=== PATIENT | female | born 1955 | race Caucasian/White ===

== ENCOUNTER → 2017-10-01 16:52 | Outpatient (REF) | payer BC, SELFPAY ==
[2017-10-01 19:30] LABS: Amphetamine/Metha Screen,Urine Negative ng/mL (<1000); Barbiturates Screen,Urine Negative ng/mL (<200); Benzodiazepines Screen,Urine Positive ng/mL (<200); Cannabinoid Screen,Urine Negative ng/mL (<50); Cocaine Screen,Urine Negative ng/mL (<300); Methadone Screen,Urine Negative ng/mL (<300); Opiate Screen,Urine Negative ng/mL (<300); Phencyclidine Screen,Urine Negative ng/mL (<25)
== END ==
LOC: LAB 16:52
PROVIDERS: Visit Provider Physician Assistant
DX: Z79.899 Other long term (current) drug therapy (principal)
CPT/HCPCS: 80305

== ENCOUNTER 2019-06-21 15:01 | Emergency (ER) | payer BC, SELFPAY ==
[2019-06-21 15:04] VITALS: BP 125/86; PULSE 105; RESP 20; TEMP 36.9; O2SAT 95; BMI 19.8
--- NOTE | 2019-06-21 15:10 | XR_ITS ---
PROCEDURE: XR CHEST PORTABLE CLINICAL HISTORY: cough/respiratory symptoms COMPARISON: CXR CHEST(2 VIEWS-NOT PORTABLE) from 11/23/2012 XR CHEST 2V from 05/04/2019 FINDINGS: The cardiomediastinal silhouette and pulmonary vascularity are within normal limits. There is increased density of the left hemithorax compared to the right somewhat more prominent in the left upper lobe with elevated left hemidiaphragm and mild prominence of the left hilum. Left upper lobe collapse or loculated effusion is a consideration as well as possible pneumonia. Consider chest CT with contrast for further evaluation. No acute bony abnormalities. IMPRESSION: Abnormal portable chest as described above which could be related to volume loss of the left upper lobe, underlying pleural thickening or effusion, or left upper lobe pneumonia. Consider chest CT with contrast for further evaluation Dictated by: Sameer Hsu MD 06/21/2019 16:00 Electronically signed by Sameer Hsu MD in [place] 06/21/2019 16:00
[2019-06-21 15:22] LABS: Hematocrit 42.8 % (37.0-47.0); Hemoglobin 13.8 g/dL (12.2-16.2); Mean Corpuscular Volume 92.6 fl (81-99); Red Blood Count 4.62 M/mm3 (4.20-5.40); White Blood Count 11.1 K/mm3 (4.8-10.8)
[2019-06-21 15:23] LABS: Basophils # 0.1 K/mm3 (0-0.2); Basophils % 0.6 % (0.1-2.0); Eosinophils # 0.2 K/mm3 (0.0-0.4); Lymphocytes # 2.1 K/mm3 (0.7-4.5); Lymphocytes % 19.3 % (10-50); Mean Corpuscular HGB Conc 32.4 g/dL (31.8-35.4); Mean Platelet Volume 8.5 fl (7.4-10.4); Monocytes # 0.7 K/mm3 (0.1-1.0); Monocytes % 6.2 % (1.7-9.3); Neutrophils % 71.9 % (37.0-80.0); Platelet Count 296 K/mm3 (142-424); Red Cell Distribution Width 13.9 % (11.5-17.5)
[2019-06-21 15:27] LABS: Strep Scrn Group A (Rapid) Negative (Negative)
--- NOTE | 2019-06-21 15:33 | HMH.COUGH ---
Cough Clinic HPI - History of Present Illness Complaint:: cough for 3 months HPI:: 63 year old female 3 months of illness that has primarily involved cough with very little sputum production. She has some nasal congestion, and periodic dyspnea. She endorses low grade fever between 99-100 degrees during this time. She was seen in the [facility] in early April for these same symptoms. Workup was unremarkable Home Medications: Home Medications Medication Instructions Recorded Confirmed Type Valium 5 mg tablet 5 mg PO TID PRN #90 tab NS 01/25/19 06/21/19 Rx Benzonatate [Tessalon Perle 100mg 100 mg PO TIDP PRN #30 cap 05/04/19 06/21/19 Rx Cap] Cefdinir [Omnicef 300mg Capsule] 300 mg PO BID 06/21/19 06/21/19 History Fluconazole 150 mg PO DIRECTED #3 tab 06/21/19 Rx Fluconazole [Diflucan 150mg tab] 150 mg PO ONCE 06/21/19 06/21/19 History levoFLOXacin [Levofloxacin 750MG 750 mg PO DAILY #7 tab 06/21/19 Rx Tablet] Allergies/Adverse Reactions: Allergies Allergy/AdvReac Type Severity Reaction Status Date / Time No Known Allergies Allergy Unknown Uncoded 01/25/19 13:21 Cough Clinic Triage - Symptoms Fever History: Yes Chills: Yes Myalgia: Yes Nasal Drainage: Yes Sore Throat: Yes Productive Cough: No Non-productive Cough: Yes Ear or Sinus Pain: Yes Joint Pain: Yes Chest Pain: Yes Rash: No Shortness of Breath: Yes Nausea or Vomitting: Yes Headache: Yes Abdominal Pain: No Diarrhea: No - Exposure History Foreign Travel: No Direct Contact with COVID-19 Patient: No - Risk Factors Greater than 60 Years Old: No COPD: No Diabetes: No Heart Disease: Yes (2 stents) Home Oxygen Use: No Chronic Renal Disease: No Chronic Liver Disease: No Neurologic/Neurodevelopmental/intellectual disability: No Other Chronic Diseases: No If Female, currently : No Current Smoker: No Former Smoker: Yes Cough Clinic History I have reviewed the patient's past medical history: Yes Medical History: Reports:: Anxiety Other Surgeries: Yes: Hysterectomy-Partial Amputation: No Fractures: No Comment: Bladder tuck, bowel surgery, cardiac stent x3 - Social History Smoking Status: Current every day smoker Tobacco Type: cigarettes # Packs/Day (cigarettes): 1 Alcohol Intake: never Substance Use Type: denies use Occupational Status: other - Psychiatric History Pschychiatric History:: Reports:: Anxiety Family Hx:: Heart Attack, Coronary Artery Disease, Cancer ROS Obtained: Yes All systems reviewed & no additional complaints Cough Clinic Exam - General General appearance: alert, in no apparent distress - Head Head exam: atraumatic, normocephalic, normal inspection - Eye Eye exam: Present: normal appearance, PERRL, EOMI - ENT ENT exam: Present: normal exam, normal oropharynx, mucous membranes moist, TM's normal bilaterally, normal external ear exam - Neck Neck exam: Present: normal inspection, full ROM, trachea midline. Absent: meningismus, lymphadenopathy - Chest Chest inspection: Present: normal inspection, symmetric chest wall rise. Absent: tenderness - Respiratory Respiratory exam: Present: normal lung sounds bilaterally. Absent: respiratory distress - Cardiovascular Cardiovascular exam: Present: regular rate, normal rhythm. Absent: JVD - Extremities Exam Extremities exam: Present: normal inspection, full ROM, normal capillary refill. Absent: calf tenderness - Neurological Exam Neurological exam: Present: alert, oriented X3 - Skin Skin exam: Present: warm, dry, intact, normal color - Lymphatic Lymphatic Findings: no adenopathy Cough Clinic MDM Vital Signs: 06/21/19 15:04 Temperature 98.5 F Temperature Source Oral Pulse Rate [Left Radial] 105 H Respiratory Rate 20 Blood Pressure [Left Arm] 125/86 Blood Pressure Mean [Left Arm] 99 Blood Pressure Source [Left Arm] Automatic Cuff Blood Pressure Position [Left Arm] Sitting 02 Sat by Pulse Oximetry 95 Oxygen Delivery Method Roxi
[2019-06-21 16:12] VITALS: BP 125/86; PULSE 105; RESP 20; TEMP 36.9; O2SAT 95
== END 2019-06-21 16:13 | disposition home or self-care (01) ==
PROVIDERS: Emergency Provider Family Medicine; PCP Emergency Medicine
DX: J18.9 Pneumonia, unspecified organism (principal); F41.9 Anxiety disorder, unspecified; F17.210 Nicotine dependence, cigarettes, uncomplicated
CPT/HCPCS: 36415; 71045; 85025; 87430; 99201; 99213

== ENCOUNTER → 2019-07-11 12:49 | Outpatient (CLI) | payer BC, SELFPAY ==
--- NOTE | 2019-07-11 12:49 | CT_ITS ---
PROCEDURE: CT CHEST W CON CLINCAL INDICATION: Abnormal CXR Shortness of air, left-sided lung pain, abnormal chest x-ray COMPARISON: ABDPELW/O CT ABD PELVIS W/O CONTRAST from 06/02/2014 XR CHEST PORTABLE from 06/21/2019 TECHNIQUE: IV Contrast: 75ml Optiray 350 Axial images obtained with sagittal and coronal reformats. All CT scans at the facility use one or more dose reduction, viz: automated exposure control, ma/kV adjustment per patient size (including targeted exams where dose is matched to indication, i.e. head), or iterative reconstruction technique. FINDINGS: HEART AND MEDIASTINAL STRUCTURES: There is increased soft tissue density in the left aspect of the hilum suspicious for adenopathy or developing mass. This measures approximately 1.9 by 1.6 cm. On the coronal reformatted images there is some minimal nodular protrusion into the left mainstem bronchus on series 601, image 33 which measures 4 mm. The there is also some narrowing of the segmental artery to the lingula. The there is mild dilatation of the main pulmonary artery on both sides right larger than left measuring 2.8 cm in AP dimension. There is some calcification of the aortic root. LUNGS AND PLEURAL SPACES: There is changes of COPD with centrilobular emphysema. There are 2 nodular densities in the left upper lobe centrally series 3, image 35. These are adjacent to 1 another and measure 5 and 8 mm. There are small areas of cavitation within these nodules. An additional small nodules present in the left lower lobe anteriorly measuring 6 mm series 3, image 43. No effusions are evident. No lobar consolidation or collapse. BONY STRUCTURES: No bony destructive process UPPER ABDOMEN: Unremarkable. ADDITIONAL FINDINGS: No other significant abnormalities. IMPRESSION: 1. Abnormal soft tissue density in the left hilum suspicious for adenopathy or a mass with some protrusion of this lesion into the left mainstem bronchus. Carcinoma is considered. Pulmonary consult with bronchoscopy suggested for further evaluation. 2. At least 3 nodules on the left which could be inflammatory/infectious or due to metastatic disease. 3. COPD with centrilobular emphysema the Dictated by: Sameer Hsu MD 07/12/2019 08:52 Electronically signed by Sameer Hsu MD in [place] 07/12/2019 08:52
[2019-07-11 13:37] LABS: Anion Gap 11.1 mEq/L (5-15); Blood Urea Nitrogen 9 mg/dl (7-17); Calcium 10.3 mg/dl (8.4-10.2); Carbon Dioxide 32 mmol/L (22.0-30.0); Chloride 95 mmol/L (98-107); Estimated Glomerular Filt Rate 125 ml/min (>60); GFR (African American) 151 ML/MIN (>60); Glucose 103 mg/dl (74-100); Potassium 4.1 mmoL/L (3.5-5.1); Sodium 134 mmol/L (136-145)
== END ==
PROVIDERS: PCP Physician Assistant; Visit Provider Physician Assistant
DX: Z01.818 Encounter for other preprocedural examination (principal); R93.89 Abnormal findings on diagnostic imaging of other specified body structures
CPT/HCPCS: 36415; 71260; 80048; Q9967

== ENCOUNTER → 2020-05-28 15:15 | Outpatient (CLI) | payer BC, SELFPAY ==
[2020-05-28 15:42] LABS: Basophils # 0.1 K/mm3 (0-0.2); Basophils % 0.7 % (0.1-2.0); Eosinophils # 0.2 K/mm3 (0.0-0.4); Eosinophils % 1.7 % (0.1-12.0); Hematocrit 44.6 % (37.0-47.0); Hemoglobin 14.4 g/dL (12.2-16.2); Lymphocytes % 10.5 % (10-50); Mean Corpuscular HGB Conc 32.4 g/dL (31.8-35.4); Mean Corpuscular Hemoglobin 29.3 pg (27.0-31.2); Mean Corpuscular Volume 90.6 fl (81-99); Mean Platelet Volume 9.3 fl (7.4-10.4); Monocytes # 0.4 K/mm3 (0.1-1.0); Monocytes % 3.9 % (1.7-9.3); Neutrophils # 8.3 K/mm3 (1.8-7.8); Neutrophils % 83.3 % (37.0-80.0); Platelet Count 348 K/mm3 (142-424); Red Blood Count 4.92 M/mm3 (4.20-5.40); Red Cell Distribution Width 13.6 % (11.5-17.5)
[2020-05-28 16:01] LABS: Alanine Aminotransferase 11 U/L (12-78); Albumin Level 4.7 g/dl (3.5-5.0); Albumin/Globulin Ratio 1.6 (1.1-1.8); Alkaline Phosphatase 97 U/L (38-126); Anion Gap 11.4 mEq/L (5-15); Aspartate Amino Transferase 23 U/L (14-36); Bilirubin,Total 0.4 mg/dl (0.2-1.3); Blood Urea Nitrogen 7 mg/dl (7-17); Calcium 9.8 mg/dl (8.4-10.2); Carbon Dioxide 28 mmol/L (22.0-30.0); Chloride 100 mmol/L (98-107); Cholesterol 260 mg/dl (140-200); Estimated Glomerular Filt Rate 125 ml/min (>60); GFR (African American) 151 ML/MIN (>60); Glucose 108 mg/dl (74-100); HDL Cholesterol 52 mg/dl (40-60); Potassium 4.4 mmoL/L (3.5-5.1); Sodium 135 mmol/L (136-145); Total Protein,Serum 7.7 g/dl (6.3-8.2); Triglycerides 172 mg/dl (30-150); VLDL Cholesterol 34 mg/dL (0-40)
[2020-05-28 16:12] LABS: Direct LDL Cholesterol 166.49 mg/dL (100-129)
[2020-05-28 16:18] LABS: Free T4 (Free Thyroxine) 1.29 ng/dl (0.78-2.19)
[2020-05-28 16:50] LABS: Vitamin B12 283 pg/mL (239-931)
[2020-05-28 18:00] LABS: 25-OH Vitamin D, Total 62.5 ng/mL (30-100)
== END ==
PROVIDERS: Visit Provider Physician Assistant
DX: Z00.00 Encounter for general adult medical examination without abnormal findings (principal)
CPT/HCPCS: 80053; 80061; 82306; 82607; 84439; 84443; 85025

== ENCOUNTER → 2021-03-20 15:18 | Outpatient (CLI) | payer BC, SELFPAY ==
[2021-03-20 15:21] LABS: Adenovirus,PCR Not Detected (NotDetected); Bordetella Pertussis Not Detected (NotDetected); Chlamydophila Pneumoniae, PCR Not Detected (NotDetected); Coronavirus 19, PCR Not Detected (NotDetected); Coronavirus 229E Not Detected (NotDetected); Coronavirus NL63 Not Detected (NotDetected); Coronavirus OC43 Not Detected (NotDetected); Coronovirus HKU1,PCR Not Detected (NotDetected); Human Metapneumovirus Not Detected (NotDetected); Influenza A, PCR Not Detected (NotDetected); Influenza AH1, 2009 Not Detected (NotDetected); Influenza AH1, PCR Not Detected (NotDetected); Influenza AH3,PCR Not Detected (NotDetected); Influenza B, PCR Not Detected (NotDetected); Mycoplasma Pneumoniae, PCR Not Detected (NotDetected); Parainfluenza 1, PCR Not Detected (NotDetected); Parainfluenza 2, PCR Not Detected (NotDetected); Parainfluenza 3, PCR Not Detected (NotDetected); Parainfluenza 4, PCR Not Detected (NotDetected); Respiratory Syncytial Virus Not Detected (NotDetected); Rhinovirus/Enterovirus Not Detected (NotDetected)
== END ==
PROVIDERS: Visit Provider Physician Assistant
DX: Z20.822 Contact with and (suspected) exposure to COVID-19 (principal); R05.9 Cough, unspecified
CPT/HCPCS: 87581; 87632; 87798; C9803; U0003; U0005

== ENCOUNTER 2021-04-01 12:40 | Emergency (ER) | payer BC, SELFPAY ==
[2021-04-01 12:55] VITALS: BP 144/90; PULSE 101; RESP 18; TEMP 37; O2SAT 90; BMI 24.6
--- NOTE | 2021-04-01 13:31 | HMH.EDUTC ---
[facility] [place] Clinical Impression: Otitis media Qualifiers: Otitis media type: unspecified Laterality: bilateral Qualified Code(s): H66.93 - Otitis media, unspecified, bilateral Disposition: Home, Self-Care Condition on Discharge: Good Instructions: Middle Ear Infection, Azithromycin Additional Instructions: ? Start antibiotic today. Be sure to complete entire prescription even if feeling better ? Monitor temp. Tylenol every 4 hours as needed and / or ibuprofen every 6 hours as needed ( As long as your primary care physician has told you that it ok to take both. For fever/aches/pains ER if no less than 101 despite Tylenol or Motrin ? Humidifier/vaporizer or hot steamy shower ? Inhaler every 4-6 hours as needed like we discussed. If unsure how to use it, ask pharmacist to demonstrate how. Should help open airways and improve cough, wheezing, and shortness of breath ? Mucinex during the day for your cough and cough suppressant only at night. Be sure to drink lots of water.Might be cheaper to get 400mg tablets and take 2 tablet in the morning, mid-day and evening with lots of water. *Start steroid today. Helps with inflammation therefore, cough and wheezing. Follow directions on the package. Reviewed side effects. Patient reports taking them before. Follow up IMMEDIATELY for new or worsening of symptoms OR no noticeable improvement over the next 48-72 hours. 911 immediately for any life threatening symptoms such as chest pain or difficulty breathing Prescriptions: guaiFENesin [Mucinex 600mg tablet] 1 - 2 tab PO Q12HP PRN #20 tab PRN Reason: Congestion Transmission Status: Received by [id number] Fluticasone Propionate [Flonase 50mcg nasal spray 16gm] 1 spr NS DAILY #1 each Transmission Status: Received by [id number] methylPREDNISolone [Medrol 4mg tab] 4 mg PO DIRECTED #21 tab Transmission Status: Received by [id number] Azithromycin [Z-Lawrence 250mg Tab] 250 mg PO DIRECTED #6 tab Transmission Status: Received by [id number] Referrals: Socorro Cox PA [Primary Care Provider] - As needed Time of Disposition: 13:48 Medical Decision Making - Shin Inquiry Pt receiving controlled substance: No Shin was queried for this patient: No Vital Signs: 04/01/21 12:55 04/01/21 13:51 Temperature 98.6 F 98.6 F Temperature Source Oral Pulse Rate 101 H Pulse Rate [Right Brachial] 101 H Respiratory Rate 18 18 Blood Pressure 144/90 H Blood Pressure [Right Arm] 144/90 H Blood Pressure Mean [Right Arm] 108 Blood Pressure Source [Right Arm] Automatic Cuff Blood Pressure Position [Right Arm] Sitting 02 Sat by Pulse Oximetry 90 L Oxygen Delivery Method Room Air Medical Decision Narrative: SPO2 rechecked and was 95 [facility] [place] - General Stated complaint: bilateral ear ache, cough, h/a Time Seen by Provider: 04/01/21 13:31 Mode of Arrival: Ambulatory Source of Information: Patient Limitations: No Limitations Description of Symptoms (Recalled from Triage Doc. by RN): PATIENT C/O CONGESTION, COUGH, EAR PAIN. REPORTS SHE WAS TREATED FOR BRONCHITIS A WEEK AGO, BUT IS NOW HAVING THE EAR PAIN HEENT Symptoms (Recalled from RN notes): Yes Resp Symptoms (Recalled from RN notes): Yes Skin Symptoms (Recalled from RN notes): No MS Symptoms (Recalled from RN notes): No Functional Status (Recalled from RN notes): WNL - History of Present Illness Provider Complaint: Patient state that she was seen and treated about a week ago for Bronchitis but states that she finished the medication and it did help with the bronchitis but now she has started having pain in her ears and still having the cough but doesnt want that treated - Related Data Previous Rx's Medication Instructions Recorded Valium 5 mg tablet 5 mg PO TID PRN #90 tab NS 03/20/21 Azithromycin [Z-Lawrence 250mg Tab] 250 mg PO DIRECTED #6 tab 04/01/21 Fluticasone Propionate [Flonase 1 spr NS DAILY #1 each 04/01/21 5
[2021-04-01 13:51] VITALS: BP 144/90; PULSE 101; RESP 18; TEMP 37; O2SAT 95
== END 2021-04-01 13:55 | disposition home or self-care (01) ==
PROVIDERS: Emergency Provider Nurse Practitioner; PCP Physician Assistant
DX: H66.93 Otitis media, unspecified, bilateral (principal); F17.210 Nicotine dependence, cigarettes, uncomplicated
CPT/HCPCS: 99202; G0463

== ENCOUNTER → 2021-08-23 06:36 | Outpatient (CLI) | payer BC, SELFPAY ==
[2021-08-22 17:47] LABS: Basophils # 0.1 K/mm3 (0-0.2); Basophils % 1.4 % (0.1-2.0); Eosinophils # 0.1 K/mm3 (0.0-0.4); Eosinophils % 1.1 % (0.1-12.0); Hematocrit 49.9 % (37.0-47.0); Hemoglobin 15.6 g/dL (12.2-16.2); Lymphocytes # 1.1 K/mm3 (0.7-4.5); Lymphocytes % 15.4 % (10-50); Mean Corpuscular HGB Conc 31.2 g/dL (31.8-35.4); Mean Corpuscular Volume 96.1 fl (81-99); Mean Platelet Volume 9.7 fl (7.4-10.4); Monocytes # 0.4 K/mm3 (0.1-1.0); Monocytes % 5.7 % (1.7-9.3); Neutrophils # 5.3 K/mm3 (1.8-7.8); Neutrophils % 76.5 % (37.0-80.0); Platelet Count 354 K/mm3 (142-424); Red Blood Count 5.19 M/mm3 (4.20-5.40)
[2021-08-22 17:49] LABS: Alanine Aminotransferase 13 U/L (12-78); Albumin Level 4.3 g/dl (3.5-5.0); Albumin/Globulin Ratio 1.3 (1.1-1.8); Alkaline Phosphatase 83 U/L (38-126); Anion Gap 10.9 mEq/L (5-15); Aspartate Amino Transferase 24 U/L (14-36); Bilirubin,Total 0.2 mg/dl (0.2-1.3); Blood Urea Nitrogen 14 mg/dl (7-17); Carbon Dioxide 32 mmol/L (22.0-30.0); Chloride 99 mmol/L (98-107); Chol/HDL Ratio 4.6 (1-3.5); Cholesterol 236 mg/dl (140-200); Estimated Glomerular Filt Rate 124 ml/min (>60); GFR (African American) 150 ML/MIN (>60); Globulin 3.3 g/dL (1.3-3.2); Glucose 101 mg/dl (74-100); HDL Cholesterol 51 mg/dl (40-60); Potassium 4.9 mmoL/L (3.5-5.1); Sodium 137 mmol/L (136-145); Total Protein,Serum 7.6 g/dl (6.3-8.2); Triglycerides 107 mg/dl (30-150); VLDL Cholesterol 21 mg/dL (0-40)
[2021-08-22 18:00] LABS: Direct LDL Cholesterol 145.21 mg/dL (100-129)
[2021-08-22 18:06] LABS: 25-OH Vitamin D, Total 42.7 ng/mL (30-100)
[2021-08-22 18:20] LABS: Thyroid Stimulating Hormone 1.48 uIU/mL (0.465-4.68)
[2021-08-22 18:39] LABS: Vitamin B12 248 pg/mL (239-931)
== END ==
PROVIDERS: PCP Physician Assistant; Visit Provider Physician Assistant
DX: Z00.00 Encounter for general adult medical examination without abnormal findings (principal); Z79.899 Other long term (current) drug therapy
CPT/HCPCS: 80053; 80061; 82306; 82607; 84443; 85025

== ENCOUNTER 2021-11-11 13:01 | Emergency (ER) | payer BC, SELFPAY ==
[2021-11-11 13:50] VITALS: BP 146/85; PULSE 91; RESP 17; TEMP 37; O2SAT 97; BMI 18.5
[2021-11-11 14:21] LABS: UTC Strep Screen (Rapid) Negative (Negative)
--- NOTE | 2021-11-11 14:29 | EXP.UTC ---
Discharge Plan Disposition Patient Disposition: Home, Self-Care Condition: Good Prescriptions Prescriptions: New amoxicillin 500 mg capsule 500 mg PO Q8 7 Days Qty: 21 0RF prednisone 10 mg tablet 10 mg PO Q12H 5 Days Qty: 10 0RF benzonatate 100 mg capsule 100 mg PO TID PRN (Reason: cough) Qty: 20 0RF No Action diazepam [Valium] 5 mg tablet 5 mg PO TID PRN (Reason: anxiety) Qty: 90 2RF fluticasone propionate 120 SPR/BOT bottle 1 spr NS DAILY Qty: 1 0RF Rx Instructions: one spray in each nostril daily Referrals Follow up/Referrals: Leonel Ford MD [Primary Care Provider] - See instructions Activity Restrictions/Add. Instructions Additional Instructions/Restrictions: *Monitor Temp, Over the counter Motrin or Tylenol as directed/as needed Tylenol every 4 hours and Motrin every 6 hours (as long as your family doctor has told you that you can take it) for fever or pain. and straight to ER if unable to lower temp less than 101.0 after medication given *Warm salt water gargles may help to soothe the throat *Throat Lozenges? *Warm fluids like tea with honey may help to soothe the throat? *Sleep elevated *Humidifier/Vaporizer *Your throat swab was sent for culture. Those results are typically sent to your primary care. Be sure to follow up in 2-3 days with your family doctor/primary care physician if no improvement so they can review those result and treat if necessary. If you don?t have a primary care doctor, I recommend you get one but in the mean time, you will have to return to a walk in clinic Follow up IMMEDIATELY for new or worsening symptoms or no Noticeable improvement over the next 48-72 hours. 911 for difficulty breathing or swallowing Start oral steriods tomorrow 11/12/21 Clinical Impressions Clinical Impression: URI (upper respiratory infection) Instructions Patient Instructions: DI for Sinusitis [place]charge ED [place]sten Hdz [facility] [place] General Stated complaint: WERNER, Sore throat Mode of Arrival: Ambulatory Source of Information: Patient Limitations: No Limitations Time Seen by Provider: 09/12/22 14:29 Description of Symptoms (Recalled from Triage Doc. by RN): PATIENT C/O HEADACHE, SORE THROAT, AND COUGH X 2 DAYS HEENT Symptoms (Recalled from RN notes): Yes Resp Symptoms (Recalled from RN notes): Yes Skin Symptoms (Recalled from RN notes): No MS Symptoms (Recalled from RN notes): No Functional Status (Recalled from RN notes): WNL History of Present Illness Provider Complaint: Patient states that she has been having sinus pain and pressure, cough, sore throat, and headache States that she feels like she may have a sinus infection that is trying to move into her chest area States that she tried to come in and get it checked before it got bad Related Data Previous Rx's Medication Instructions Recorded fluticasone propionate 50 1 spr intranasal DAILY #1 ea 04/01/21 mcg/actuation nasal spray,suspension Valium 5 mg tablet (diazepam) 5 mg PO TID PRN anxiety #90 tabs 08/23/21 amoxicillin 500 mg capsule 500 mg PO Q8 7 days #21 caps 11/11/21 benzonatate 100 mg capsule 100 mg PO TID PRN cough #20 caps 11/11/21 prednisone 10 mg tablet 10 mg PO Q12H 5 days #10 tabs 11/11/21 Allergies Allergy/AdvReac Type Severity Reaction Status Date / Time No Known Allergies Allergy Verified 08/22/21 13:07 Worker's Comp Is this a Worker's Comp case?: No PFSH PFSH Medical History (Updated 11/11/21 @ 14:42 by Kiersten Hdz APRN) Anxiety Cancer Heart attack Migraine Tooth abscess Surgical History (Updated 11/11/21 @ 14:18 by Afshan Cuellar RN) History of hysterectomy Social History (Updated 11/11/21 @ 14:18 by Afshan Cuellar RN) Smoking Status: Current every day smoker tobacco type: cigarettes packs per day: 1 alcohol intake: never substance use type: denies use current occupational status: other Travel in the
[2021-11-11 14:50] VITALS: BP 146/85; PULSE 91; RESP 17; TEMP 37; O2SAT 97
== END 2021-11-11 14:58 | disposition home or self-care (01) ==
PROVIDERS: Emergency Provider Nurse Practitioner; PCP Emergency Medicine
DX: J02.9 Acute pharyngitis, unspecified (principal); R51.9 Headache, unspecified; R05.9 Cough, unspecified; F17.210 Nicotine dependence, cigarettes, uncomplicated
CPT/HCPCS: 87880; 96372; 99212; G0463; J0696

== ENCOUNTER 2022-01-24 00:25 | Emergency (ER) | payer BC, SELFPAY ==
[2022-01-24 00:25] VITALS: BP 195/103; PULSE 95; RESP 16; TEMP 36.7; O2SAT 99; BMI 18.6
--- NOTE | 2022-01-24 00:30 | ECG_ITS ---
APPROVED REPORT Exam: Resting ECG HR:95 bpm ECG Measurements Heart Rate 95 AXES ND 174 P 70 QRSd 98 QRS -32 QT 353 T 87 QTc 406 Conclusion SINUS RHYTHM WITH FREQUENT VENTRICULAR PREMATURE COMPLEXES LEFT AXIS DEVIATION [QRS AXIS < -30] NONSPECIFIC ST & T-WAVE ABNORMALITY ABNORMAL ECG UNCONFIRMED REPORT Electronically signed by : Mk Reagan MD 01/24/2022 16:24:13
--- NOTE | 2022-01-24 00:47 | XR_ITS ---
PROCEDURE INFORMATION: Exam: XR Chest Exam date and time: 01/24/2022 12:46 AM Age: 66 years old Clinical indication: Pain; Chest pressure; Additional info: Chest pressure/pre-syncope TECHNIQUE: Imaging protocol: Radiologic exam of the chest. Views: 2 views. COMPARISON: CT CHEST W CON 07/11/2019 2:00 PM FINDINGS: Lungs: There is left hilar prominence. Linear parenchymal opacities extend into the anterior left upper lobe from the area of left hilar prominence. Pleural spaces: Unremarkable. No pleural effusion. No pneumothorax. Heart/Mediastinum: Unremarkable. No cardiomegaly. Vasculature: Unremarkable. Bones/joints: Unremarkable. IMPRESSION: Left hilar prominence with interstitial linear densities extending into the left upper lobe from the area of hilar prominence. Prior CT demonstrated left hilar mass/adenopathy. The present finding is likely related to the CT abnormality and correlation with the patient's history is recommended with regard to malignancy. No acute consolidation is appreciated.
[2022-01-24 00:58] LABS: Chloride 98 mmol/L (98-107)
[2022-01-24 00:59] LABS: Potassium 3.6 mmoL/L (3.5-5.1); Sodium 136 mmol/L (136-145)
[2022-01-24 01:01] LABS: Alanine Aminotransferase 15 U/L (12-78); Albumin Level 4.5 g/dl (3.5-5.0); Albumin/Globulin Ratio 1.4 (1.1-1.8); Alkaline Phosphatase 94 U/L (38-126); Anion Gap 11.6 mEq/L (5-15); Aspartate Amino Transferase 25 U/L (14-36); Bilirubin,Total 0.3 mg/dl (0.2-1.3); Blood Urea Nitrogen 9 mg/dl (7-17); Carbon Dioxide 30 mmol/L (22.0-30.0); Creatinine Clearance Estimated 41 mL/min (50-200); Estimated Glomerular Filt Rate 124 ml/min (>60); GFR (African American) 150 ML/MIN (>60); Globulin 3.3 g/dL (1.3-3.2); Glucose 112 mg/dl (74-100); Total Protein,Serum 7.8 g/dl (6.3-8.2)
[2022-01-24 01:02] LABS: Magnesium 1.7 mg/dl (1.6-2.3)
--- NOTE | 2022-01-24 01:02 | HMH.EDARPALP ---
Discharge Plan Disposition Patient Disposition: Home, Self-Care Chief Complaint: Arrhythmia/Palpitations Prescriptions Prescriptions: No Action diazepam [Valium] 5 mg tablet 5 mg PO TID PRN (Reason: anxiety) Qty: 90 2RF fluticasone propionate 120 SPR/BOT bottle 1 spr NS DAILY Qty: 1 0RF Rx Instructions: one spray in each nostril daily Referrals Follow up/Referrals: Leonel Ford MD [Primary Care Provider] - See instructions Jorge Harris MD [Staff Physician] - See instructions Clinical Impressions Clinical Impression: Cardiac arrhythmia, Subclavian arterial stenosis Instructions Patient Instructions: Cardiac Arrhythmia (Alternative Therapy) Discharge ED Provider: Leonel Ford Arrhythmia/Palpitations HPI General Chief Complaint: Arrhythmia/Palpitations Stated Complaint: heart beat fluctuating Time Seen by Provider: 01/24/22 01:02 Mode of Arrival: Family Vehicle Source of Information: Patient and Medical Record Limitations: No Limitations History of Present Illness HPI narrative: over the last few weeks episodes of low hr with nausea and a couple of times has diaphoresis but no syncope and mostly in am - no chest pain - had stents in past but has not seen card in recent past - tob use but no diabetes Onset (ago): week(s) Duration: intermittent Severity: moderate Context: other (has low hr ) Associated symptoms: nausea and diaphoresis Related Data Previous Rx's Medication Instructions Recorded fluticasone propionate 50 1 spr intranasal DAILY #1 ea 04/01/21 mcg/actuation nasal spray,suspension Valium 5 mg tablet (diazepam) 5 mg PO TID PRN anxiety #90 tabs 08/23/21 Allergies Allergy/AdvReac Type Severity Reaction Status Date / Time No Known Allergies Allergy Verified 08/22/21 13:07 [facility] Medical History (Updated 01/24/22 @ 04:04 by Leonel Ford MD) Anxiety Cancer Heart attack Migraine Tooth abscess Surgical History (Updated 11/11/21 @ 14:18 by Afshan Cuellar RN) History of hysterectomy Social History (Updated 11/11/21 @ 14:18 by Afshan Cuellar RN) Smoking Status: Current every day smoker tobacco type: cigarettes packs per day: 1 alcohol intake: never substance use type: denies use current occupational status: other Travel in the last 8 weeks: None ROS Obtained: Yes All systems reviewed & no additional complaints except as documented Physical Exam General General appearance: alert Head Head exam: normocephalic Eye Eye exam: Present PERRL and EOMI ENT ENT exam: Present mucous membranes moist Neck Neck exam: Present trachea midline Respiratory Respiratory exam: Present other (positive rhonchi); Absent respiratory distress Cardiovascular Cardiovascular exam: Present regular rate, systolic murmur and +S4 Abdominal Exam Abdominal exam: Present soft Extremities Exam Extremities exam: Absent tenderness Neurological Exam Neurological exam: Present alert, oriented X3 and CN II-XII intact Psychiatric Psychiatric exam: Present normal affect Skin Skin exam: Absent rash Medical Decision Making Medical Records Medical records reviewed: Yes I reviewed the patient's medical records. Shin Inquiry Pt receiving controlled substance: No Vital Signs: 01/24/22 00:25 01/24/22 01:46 Temperature 98.1 F Temperature Source Oral Pulse Rate [Orthostatic Lying] 81 Pulse Rate [Orthostatic Sitting] 81 Pulse Rate [Orthostatic Standing] 86 Pulse Rate [Right] 95 H Respiratory Rate 16 Blood Pressure [Orthostatic Lying] 114/64 Blood Pressure [Orthostatic Sitting] 108/68 L Blood Pressure [Orthostatic Standing] 117/75 Blood Pressure [Right Arm] 195/103 H Blood Pressure Mean [Right Arm] 133 Blood Pressure Source [Right Arm] Automatic Cuff 02 Sat by Pulse Oximetry 99 Oxygen Delivery Method Room Air Lab Data Lab results reviewed: Yes I reviewed the patient's lab results. Lab Results 01/24/22 00:40: WBC
[2022-01-24 01:12] LABS: Basophils # 0.1 K/mm3 (0-0.2); Eosinophils # 0.2 K/mm3 (0.0-0.4); Eosinophils % 1.9 % (0.1-12.0); Hematocrit 45.3 % (37.0-47.0); Hemoglobin 14.7 g/dL (12.2-16.2); Lymphocytes # 1.5 K/mm3 (0.7-4.5); Lymphocytes % 17.6 % (10-50); Mean Corpuscular HGB Conc 32.4 g/dL (31.8-35.4); Mean Corpuscular Hemoglobin 29.7 pg (27.0-31.2); Mean Corpuscular Volume 91.7 fl (81-99); Mean Platelet Volume 8.5 fl (7.4-10.4); Monocytes # 0.5 K/mm3 (0.1-1.0); Monocytes % 5.9 % (1.7-9.3); Neutrophils # 6.1 K/mm3 (1.8-7.8); Neutrophils % 73.6 % (37.0-80.0); Platelet Count 353 K/mm3 (142-424); Red Blood Count 4.94 M/mm3 (4.20-5.40); Red Cell Distribution Width 13.6 % (11.5-17.5); White Blood Count 8.2 K/mm3 (4.8-10.8)
[2022-01-24 01:22] LABS: Troponin I < 0.01 ng/ml (0.00-0.034)
--- NOTE | 2022-01-24 01:28 | PC.NURSE ---
Dr. Ford s/w pt & family
[2022-01-24 01:46] VITALS: BP 108/68; BP 114/64; BP 117/75; PULSE 81; PULSE 86
--- NOTE | 2022-01-24 02:05 | CT_ITS ---
PROCEDURE INFORMATION: Exam: CTA Chest With Contrast Exam date and time: 01/24/2022 2:16 AM Age: 66 years old Clinical indication: Pain; Chest pressure; Additional info: Chest pressure, HX of lung cancer TECHNIQUE: Imaging protocol: Computed tomographic angiography of the chest with contrast. 3D rendering (Not supervised by radiologist): MIP and/or 3D reconstructed images were created by the technologist. Radiation optimization: All CT scans at this facility use at least one of these dose optimization techniques: automated exposure control; mA and/or kV adjustment per patient size (includes targeted exams where dose is matched to clinical indication); or iterative reconstruction. Contrast material: ISOVUE; Contrast volume: 70 ml; Contrast route: INTRAVENOUS (IV); COMPARISON: CT CHEST W CON 07/11/2019 2:00 PM FINDINGS: Pulmonary arteries: Normal. No pulmonary emboli. Great vessels off aortic arch: There is significant calcific disease of the origin of the left subclavian artery with significant stenosis noted. Aorta: Unremarkable. No aortic aneurysm. No aortic dissection. Lungs: There are moderate emphysematous changes predominantly involving the upper lobes. There are passive atelectatic changes involving the dependent portions of both lungs. There is soft tissue prominence surrounding the bifurcation of the left mainstem bronchus and the proximal upper lobe segmental bronchi as well as the adjacent pulmonary vessels. This finding accounts for the hilar prominence noted on the chest radiograph. Prior CT from July 11, 2019 demonstrated a nearly 2 cm discrete soft tissue nodule in this region. There are fibrotic changes of the left upper lobe involving its medial aspect. There is pleural-based, nodular soft tissue involving the mid to medial aspect of the superior segment left lower lobe. Pleural spaces: Unremarkable. No pneumothorax. No pleural effusion. Heart: The heart is enlarged. Lymph nodes: Unremarkable. No enlarged lymph nodes. Bones/joints: Unremarkable. No acute fracture. Soft tissues: Unremarkable. IMPRESSION: 1. There is no pulmonary embolus or acute aortic finding. Significant stenosis at the origin of the left subclavian artery. 2. Findings within the left hilum and left upper lobe consistent with scarring secondary to treatment for known lung cancer. These findings account for the appearance on the chest radiograph. 3. There is pleural-based area of nodular density along the mid to medial aspect of the superior segment left lower lobe. This may be related to the lung cancer treatment however, an acute inflammatory process can not be excluded. 4. Moderate emphysematous changes predominantly involving the upper lobes.
[2022-01-24 03:23] LABS: T4 (Thyroxine) 8.1 ug/dl (5.53-11.0)
[2022-01-24 03:59] VITALS: BP 135/98; O2SAT 96
[2022-01-24 04:06] LABS: Troponin I < 0.01 ng/ml (0.00-0.034)
[2022-01-24 04:14] VITALS: BP 136/77; PULSE 85; RESP 15; TEMP 36.7; O2SAT 95
== END 2022-01-24 04:18 | disposition home or self-care (01) ==
PROVIDERS: Emergency Provider Emergency Medicine; PCP Emergency Medicine
DX: I77.1 Stricture of artery (principal); I49.9 Cardiac arrhythmia, unspecified; Z72.0 Tobacco use; Z79.899 Other long term (current) drug therapy; F41.9 Anxiety disorder, unspecified; G43.909 Migraine, unspecified, not intractable, without status migrainosus; Z86.73 Personal history of transient ischemic attack (TIA), and cerebral infarction without residual deficits; Z85.9 Personal history of malignant neoplasm, unspecified
CPT/HCPCS: 71046; 71275; 80053; 83735; 84436; 84443; 84484; 85025; 93005; 93225; 93226; 96365; 99285; Q9967

== ENCOUNTER → 2022-02-03 12:50 | Outpatient (CLI) | payer BC, SELFPAY ==
--- NOTE | 2022-02-03 12:52 | CA_ITS ---
FINAL REPORT TECHNIQUE: Color Doppler, duplex Doppler and quintero scale sonography of the bilateral neck arterial vasculature was performed. Velocities were measured in the carotid arteries. Stenosis evaluation based on the validated velocity criteria. CLINICAL HISTORY: LT SUBCLAVIAN STENOSIS SEEN ON CTA CHEST,SMOKER,PRIOR RT ICA STENT,NORIS FINDINGS: The peak systolic velocity of the right common carotid artery is 62 cm/s. There is a stent in the right internal carotid artery. The peak systolic velocity of the right internal carotid artery is 108 cm/s and end diastolic velocity 24 cm/s. The ICA/CCA ratio is 2.8. No significant plaque is present. The right external carotid artery is patent. The right vertebral artery is patent with antegrade flow. The peak systolic velocity of the left common carotid artery is 77 cm/s. The peak systolic velocity of the left internal carotid artery is 217 cm/s and end diastolic velocity 73 cm/s. The ICA/CCA ratio is 1.2. A moderate to large amount of plaque is present. The left external carotid artery is patent. Tardus parvus flow is seen of the left vertebral artery worrisome for significant stenosis. IMPRESSION: No significant right ICA stenosis. 50-69% stenosis of the left ICA. Tardus parvus flow of the left vertebral artery. Consider CTA or catheter directed angiogram. Reviewed, Interpreted and Dictated by Vinnie Wagner III, MD Transcribed by Ilda Becerril Authenticated and . [facility]
== END ==
PROVIDERS: PCP Physician Assistant; Visit Provider Nurse Practitioner
DX: I77.1 Stricture of artery (principal)
CPT/HCPCS: 93880

== ENCOUNTER 2022-07-10 11:17 | Outpatient (CLI) | payer BC, SELFPAY ==
[2022-07-10 11:20] VITALS: BP 127/74; PULSE 88; RESP 18; O2SAT 98
[2022-07-10 12:40] VITALS: BP 143/72; PULSE 87; RESP 18; O2SAT 99
== END 2022-07-10 12:40 | disposition home or self-care (01) ==
LOC: INF 11:17
PROVIDERS: PCP Nurse Practitioner Family; Visit Provider Nurse Practitioner Family
DX: E87.8 Other disorders of electrolyte and fluid balance, not elsewhere classified (principal)
CPT/HCPCS: 96360

== ENCOUNTER 2022-12-16 13:40 | Emergency (ER) | payer BC, SELFPAY ==
[2022-12-16 13:40] VITALS: BP 150/84; PULSE 99; RESP 18; TEMP 36.7; O2SAT 95; BMI 18.3
[2022-12-16 14:05] LABS: UTC Strep Screen (Rapid) Negative (Negative)
--- NOTE | 2022-12-16 14:11 | EXP.UTC ---
Discharge Plan Disposition Patient Disposition: Home, Self-Care Condition: Good Prescriptions Prescriptions: New methylprednisolone 4 mg Tablets,Dose Pack 4 mg PO DIRECTED Qty: 21 0RF cefdinir 300 mg capsule 300 mg PO BID Qty: 20 0RF No Action mupirocin 2 % ointment 1 applic topical TID PRN (Reason: skin soreness) Qty: 22 0RF lorazepam [Ativan] 1 mg tablet 1 mg PO TID PRN (Reason: anxiety) Qty: 90 0RF diazepam [Valium] 5 mg tablet 5 mg PO BID PRN (Reason: anxiety) Qty: 60 0RF Referrals Follow up/Referrals: Socorro Cox PA [Primary Care Provider] - See instructions Activity Restrictions/Add. Instructions Additional Instructions/Restrictions: Drink plenty of fluids. Take tylenol or ibuprofen for pain or fever. Take the medications as directed. Follow up with your regular doctor. GO TO THE ER FOR ANY WORSENING SYMPTOMS Clinical Impressions Clinical Impression: Pharyngitis Instructions Patient Instructions: Sore Throat, DI for Pharyngitis/Tonsillopharyngitis -- Adult Discharge ED Provider: Yariel Polo [facility] General Stated complaint: sore throat Time Seen by Provider: 12/16/22 14:10 History of Present Illness Provider Complaint: She states that for the past 2 days she has had sore throat, chills, and low grade fever. Related Data Previous Rx's Medication Instructions Recorded Ativan 1 mg tablet (lorazepam) 1 mg PO TID PRN anxiety #90 tabs 07/08/22 mupirocin 2 % topical ointment 1 applic topical TID PRN skin 07/08/22 soreness #22 grams Valium 5 mg tablet (diazepam) 5 mg PO BID PRN anxiety #60 tabs 11/13/22 cefdinir 300 mg capsule 300 mg PO BID #20 caps 12/16/22 methylprednisolone 4 mg tablets in 4 mg PO DIRECTED #21 tabs 12/16/22 a dose pack Allergies Allergy/AdvReac Type Severity Reaction Status Date / Time asa AdvReac Mild tinninitis Uncoded 12/16/22 14:13 [facility] Disclaimer: The information contained in this section may have been updated after the patient was seen, as this information can be updated by other users. Medical History Anxiety Trial Ativan instead of Valium Cancer Heart attack Migraine Tooth abscess Antibiotics and diflucan for vaginitis from antibiotics. F/U with Dr Sherwood Surgical History History of hysterectomy Social History Smoking Status: Current every day smoker tobacco type: cigarettes packs per day: 1 alcohol intake: never substance use type: denies use current occupational status: other Travel in the last 8 weeks: None ROS Obtained: Yes All systems reviewed & no additional complaints except as documented Constitutional Constitutional: Reports chills and Reports fever(s) Eyes Eyes: Denies eye discharge ENT Ears, Nose, Mouth, and Throat: Reports as per HPI Cardiovascular Cardiovascular: Denies chest pain Respiratory Respiratory: Denies chest congestion and Reports cough Gastrointestinal Gastrointestingal: Reports nausea; Denies abdominal pain, constipation, cramping, diarrhea or vomiting Musculoskeletal Musculoskeletal: Denies arthralgias Integumentary/Breasts Skin/Breast: Denies rash Neurologic Neurologic: Denies paresthesias Physical Exam General General appearance: alert and in no apparent distress Head Head exam: atraumatic, normocephalic and normal inspection Eye Eye exam: Present normal appearance, PERRL and EOMI ENT ENT exam: Present mucous membranes moist and normal external ear exam Expanded ENT Exam TM/Canal exam: Bilateral TM: erythema and bulging Nose exam: Absent sinus tenderness Mouth exam: Present normal external inspection; Absent drooling Teeth exam: Present normal inspection Throat exam: Present tonsillar erythema, tonsillomegaly and tonsillar exudate Neck Neck exam: Present normal inspection, full ROM a
[2022-12-16 14:39] VITALS: BP 150/84; PULSE 99; RESP 18; TEMP 36.7; O2SAT 95
== END 2022-12-16 14:39 | disposition home or self-care (01) ==
PROVIDERS: Emergency Provider Nurse Practitioner Family; PCP Physician Assistant
DX: J02.9 Acute pharyngitis, unspecified (principal); F17.210 Nicotine dependence, cigarettes, uncomplicated; Z86.79 Personal history of other diseases of the circulatory system
CPT/HCPCS: 87880; 99212; 99214; G0463

== ENCOUNTER → 2022-12-24 16:21 | Outpatient (CLI) | payer BC, SELFPAY ==
--- NOTE | 2022-12-24 16:25 | XR_ITS ---
PROCEDURE INFORMATION: Exam: XR Chest Exam date and time: 12/24/2022 4:31 PM Age: 67 years old Clinical indication: Cough; Additional info: Copd TECHNIQUE: Imaging protocol: Radiologic exam of the chest. Views: 2 views. COMPARISON: CR XR CHEST 2V 01/24/2022 12:46 AM FINDINGS: Lungs: Left perihilar/upper lobe infiltrate appears similar to prior studies. No new infiltrate evident. Pleural spaces: Unremarkable. No pleural effusion. No pneumothorax. Heart/Mediastinum: Unremarkable. No cardiomegaly. Bones/joints: Unremarkable. IMPRESSION: Stable chronic left perihilar/upper lobe infiltrate. No acute infiltrate
== END ==
LOC: RAD 16:21
PROVIDERS: PCP Internal Medicine Adolescent Medicine; Visit Provider Physician Assistant
DX: J44.1 Chronic obstructive pulmonary disease with (acute) exacerbation (principal); Z72.0 Tobacco use
CPT/HCPCS: 71046

== ENCOUNTER → 2023-01-07 16:23 | Outpatient (CLI) | payer BC, SELFPAY ==
[2023-01-07 16:45] LABS: Basophils % 0.3 % (0.1-2.0); Eosinophils # 0.1 K/mm3 (0.0-0.4); Hematocrit 43.3 % (37.0-47.0); Hemoglobin 14.7 g/dL (12.2-16.2); Lymphocytes # 1.3 K/mm3 (0.7-4.5); Lymphocytes % 11.7 % (10-50); Mean Corpuscular HGB Conc 33.9 g/dL (31.8-35.4); Mean Corpuscular Hemoglobin 30.5 pg (27.0-31.2); Mean Corpuscular Volume 90.1 fl (81-99); Mean Platelet Volume 7.6 fl (7.4-10.4); Monocytes # 0.7 K/mm3 (0.1-1.0); Monocytes % 5.8 % (1.7-9.3); Neutrophils # 9.3 K/mm3 (1.8-7.8); Neutrophils % 81.2 % (37.0-80.0); Platelet Count 373 K/mm3 (142-424); Red Cell Distribution Width 13.6 % (11.5-17.5); White Blood Count 11.5 K/mm3 (4.8-10.8)
[2023-01-07 17:10] LABS: Anion Gap 14.5 mEq/L (5-15); Bilirubin,Direct 0.1 mg/dl (0.0-0.4); Bilirubin,Total 0.2 mg/dl (0.2-1.3); Blood Urea Nitrogen 7 mg/dl (7-17); Calcium 9.8 mg/dl (8.4-10.2); Carbon Dioxide 31 mmol/L (22.0-30.0); Chloride 86 mmol/L (98-107); Estimated Glomerular Filt Rate 123 ml/min (>60); GFR (African American) 149 ML/MIN (>60); Glucose 81 mg/dl (74-100); Magnesium 1.7 mg/dl (1.6-2.3); Potassium 4.5 mmoL/L (3.5-5.1); Sodium 127 mmol/L (136-145)
[2023-01-07 17:11] LABS: Alanine Aminotransferase 24 U/L (12-78); Albumin Level 4.6 g/dl (3.5-5.0); Alkaline Phosphatase 99 U/L (38-126); Aspartate Amino Transferase 35 U/L (14-36); Bilirubin,Indirect 0.1 mg/dL (0.0-0.9); Bilirubin,Unconjugated 0.1 mg/dL (0.0-1.1); Total Protein,Serum 7.8 g/dl (6.3-8.2)
[2023-01-07 17:27] LABS: Free T4 (Free Thyroxine) 1.41 ng/dl (0.78-2.19)
[2023-01-07 17:40] LABS: Thyroid Stimulating Hormone 2.15 uIU/mL (0.465-4.68)
== END ==
LOC: LAB 16:24
PROVIDERS: PCP Nurse Practitioner Family; Visit Provider Nurse Practitioner
DX: I25.10 Atherosclerotic heart disease of native coronary artery without angina pectoris (principal); I11.9 Hypertensive heart disease without heart failure; E78.2 Mixed hyperlipidemia; I65.29 Occlusion and stenosis of unspecified carotid artery; I77.1 Stricture of artery; R00.2 Palpitations; R05.9 Cough, unspecified; R06.00 Dyspnea, unspecified; R07.9 Chest pain, unspecified; Z72.0 Tobacco use
CPT/HCPCS: 36415; 80048; 80076; 83735; 84439; 84443; 85025

== ENCOUNTER → 2023-01-08 08:35 | Outpatient (CLI) | payer BC, SELFPAY ==
--- NOTE | 2023-01-08 08:39 | CT_ITS ---
FINAL REPORT TECHNIQUE: Axial imaging of the chest is obtained after the administration of contrast. 3-D MIP reformatted images were also obtained and reviewed per PE protocol. CLINICAL HISTORY: dyspnea/tachycardia/ COMPARISON: 01/24/2022 FINDINGS: The pulmonary arteries are well filled. There is no evidence of pulmonary embolus. There is no aortic dissection or intimal flap. There is a new right hilar adenopathy measuring 3 cm in size. This appears to obstruct the right upper lobe bronchus.. There is geographic airspace disease and fibrosis in the medial left lung, stable, which may be secondary to prior treatment for the patient's known lung cancer. Changes of emphysema are once again identified. There are new lung nodules primarily on the right side when compared to the prior CT. There is a new right upper lobe opacity, 19 mm in size. This is best seen on image #37. There is a right lower lobe spiculated pleural-based 19 mm nodule, new since the prior CT. There are reticulonodular opacities in the inferior right upper lobe and right middle lobe, likely inflammatory. There is no pleural or pericardial effusion. There are several hypervascular liver lesions along the posterior dome, one of which is seen best in image #69, and measures 9 mm in size. There is a hypodense 13 mm left lobe of the liver new density since the prior CT. No acute osseous abnormality. IMPRESSION: No evidence of pulmonary embolism or aortic dissection. There are new right lung nodules and new right hilar conglomerate adenopathy, consistent with recurrence of the patient's known lung cancer and/or metastatic disease. Would consider PET/CT for further evaluation. New reticulonodular opacities in the right lung, worrisome for pneumonia. Multiple liver lesions as described, metastases not excluded. Reviewed, Interpreted and Dictated by Suzanne Ribeiro MD Transcribed by Maureen Loyola Authenticated and [facility]
== END ==
PROVIDERS: PCP Physician Assistant; Visit Provider Internal Medicine
DX: R06.00 Dyspnea, unspecified (principal); R07.9 Chest pain, unspecified; R00.2 Palpitations; I25.10 Atherosclerotic heart disease of native coronary artery without angina pectoris; I10 Essential (primary) hypertension; E78.2 Mixed hyperlipidemia; I65.23 Occlusion and stenosis of bilateral carotid arteries; I77.1 Stricture of artery
CPT/HCPCS: 71275; 87070; 87205; Q9967

== ENCOUNTER → 2023-01-08 12:06 | Outpatient (CLI) | payer BC, SELFPAY | PROVIDERS: PCP Internal Medicine Adolescent Medicine; Visit Provider Nurse Practitioner Family | DX: R06.09 Other forms of dyspnea (principal) ==

== ENCOUNTER → 2023-01-21 13:42 | Outpatient (CLI) | payer BC, SELFPAY ==
--- NOTE | 2023-01-21 13:44 | CA_ITS ---
FINAL REPORT TECHNIQUE: Color Doppler, duplex Doppler and quintero scale sonography of the bilateral neck arterial vasculature was performed. Velocities were measured in the carotid arteries. Stenosis evaluation based on the validated velocity criteria. CLINICAL HISTORY: NORIS,RT CAROTID STENT,DIZZINESS,HX LUNG CA COMPARISON: None FINDINGS: The peak systolic velocity of the right common carotid artery is 62 cm/s. The peak systolic velocity of the right internal carotid artery is 121 cm/s and end diastolic velocity 31 cm/s. The ICA/CCA ratio is 2.1. A mild amount of plaque is present. The right external carotid artery is patent. The right vertebral artery is patent with antegrade flow. The peak systolic velocity of the left common carotid artery is 86 cm/s. The peak systolic velocity of the left internal carotid artery is 214 cm/s and end diastolic velocity 38 cm/s. The ICA/CCA ratio is 2.8. A moderate amount of plaque is present. The left external carotid artery is patent.The left vertebral artery is patent with antegrade flow. IMPRESSION: Less than 50% carotid stenosis on the right and 50-69% carotid stenosis on the left. Bilateral patent vertebral arteries with antegrade flow. If indicated, CTA or MRA could further evaluate. Reviewed, Interpreted and Dictated by Vinnie Wagner III, MD Transcribed by Maribell Xiao Authenticated and [facility]
--- NOTE | 2023-01-21 13:44 | CA_ITS ---
APPROVED REPORT EXAM: Comprehensive 2D, Doppler, and color-flow Echocardiogram Parking Lot Supervisor: Stefania Michael CRT Ht: 5 ft 1 in Wt: 98lbs BSA: 1.40 BP: 139/89 mmHg Indications: StageIII lung cancer, S/p radiation [place] 2020, Dyspnea,CP, ASCVD, COPD, Smoker, NORIS 2D Dimensions LVOT 1.89 cm (M/F) 1.5-2.5 LA Volume 19.40 mL LA Volume Index 13.60 mL/m2 (M/F) 16-34 M-Mode Dimensions RVDd 2.44 cm (0.9-2.6) LA Diam 3.04 cm (1.9-4.0) LVDd 4.45 cm (3.5-5.7) Ao Diam 3.33 cm (2.0-3.7) LVDs 3.23 cm (3.5-5.7) IVSd 1.25 cm (0.6-1.1) PWd 0.97 cm (0.6-1.1) EF (Teich) 53.50% FS 27.40% EDV (Teich) 90.10 mL TAPSE 1.49 (<1.7) ESV (Teich) 41.90 mL LV Diastology MED E' 13.20 (< 7 cm/sec) MED A' 7.20 cm/s Aortic Valve AO Peak GR. 9.50 mmHg Tricuspid Valve TR P. Velocity 378.00 cm/s RAP Estimate 10.00 mmHg RVSP 67.10 mmHg Left Ventricle The left ventricle is normal size. Left ventricular systolic function is mildly decreased. There is increased LV wall thickness. THe septum is asynchronous. Diastolic function is indeterminate. LVEF is 45-50%. Right Ventricle The right ventricle is mildly dilated. The right ventricular systolic function is normal. A device lead is noted in the right ventricle. Atria Left atrium is mildly dilated. Right atrium is mildly dilated. There is no Doppler evidence of interatrial shunt. Aortic Valve The aortic valve is mildly thickened. There is no aortic valvular stenosis. Trace aortic regurgitation. Mitral Valve The mitral valve leaflets are mildly thickened. No evidence of mitral valve stenosis. Mild mitral regurgitation. Tricuspid Valve THe tricuspid valve leaflets are thin and pliable. Mild tricuspid regurgitation. RVSP is 55-60 mmHg. Pulmonic Valve The pulmonary valve is normal in structure. Trace pulmonic regurgitation. Great Vessels The aortic root is normal in size. The ascending aorta is normal in size. IVC is normal in size and collapses >50% with inspiration. Pericardium A moderate-sized, anterior pericardial effusion is present. The largest pocket measures 1.1 cm in diastole. No echo indications of tamponade. Other Information Study Quality: Fair Conclusion Mildly reduced LV systolic function (LVEF 45-50%). Asynchronous septum. Mildly dilated RV. Mild biatrial dilation. Mild MR, mild TR. Markedly elevated RVSP 55-60 mmHg. Moderate-sized, anterior pericardial effusion is present. The largest pocket measures 1.1 cm in diastole. No echo indications of tamponade. Electronically signed by : Mariajose Prather MD 01/25/2023 14:02:58
== END ==
LOC: RT 13:42
PROVIDERS: PCP Internal Medicine Adolescent Medicine; Visit Provider Nurse Practitioner
DX: E78.2 Mixed hyperlipidemia (principal); I11.9 Hypertensive heart disease without heart failure; I25.10 Atherosclerotic heart disease of native coronary artery without angina pectoris; I65.29 Occlusion and stenosis of unspecified carotid artery; I77.1 Stricture of artery; R00.2 Palpitations; R06.00 Dyspnea, unspecified; R07.9 Chest pain, unspecified; Z72.0 Tobacco use
CPT/HCPCS: 93306; 93880

== ENCOUNTER → 2023-01-23 10:59 | Outpatient (CLI) | payer BC, SELFPAY ==
--- NOTE | 2023-01-23 10:59 | CT_ITS ---
FINAL REPORT CLINICAL HISTORY: to rule out pe, cough, soa COMPARISON: 01/08/2023 FINDINGS: Thin section axial CT images of the chest were obtained with contrast. 3D reformatted images were also obtained. This study was performed with techniques to keep radiation doses as low as reasonably achievable (ALARA). Individualized dose reduction techniques using automated exposure control or adjustment of mA and/or kV according to the patient''s size were employed. There is no evidence of pulmonary embolism. There is no evidence of thoracic aortic aneurysm or dissection. Again noted is mediastinal and right hilar adenopathy. Right hilar adenopathy measures 29 mm and is stable. There is partial cavitation of a posterior right upper lobe nodule measuring approximately 16 mm, was 16 mm. There is a nodule in the superior segment of the right lower lobe measuring 19 mm which is stable. There is moderate emphysema. There are persistent less than 1 cm inferior right upper lobe nodules. There are slightly worse lateral left upper lobe alveolar opacities. Mucous plugging in multiple bronchi on the right is again noted. Limited images of the upper abdomen demonstrate a persistent but stable low-attenuation focus in the medial segment of the right hepatic lobe measuring 14 mm. The previously seen liver masses are not as well-visualized. IMPRESSION: No evidence of pulmonary embolism. Persistent abnormalities in the mediastinum, right hilum, and right lower lobe are most worrisome for neoplastic involvement. Worsening left upper lobe opacities worrisome for pneumonia. Previously noted hepatic masses not as well-visualized and of uncertain significance. CT abdomen liver mass protocol or liver MRI may be helpful. Reviewed, Interpreted and Dictated by Vinnie Wagner III, MD Transcribed by Maribell Xiao Authenticated and . [facility]
== END ==
LOC: RAD 10:59
PROVIDERS: PCP Internal Medicine Adolescent Medicine; Visit Provider Nurse Practitioner
DX: R91.1 Solitary pulmonary nodule (principal); R59.0 Localized enlarged lymph nodes; R05.3 Chronic cough; J43.2 Centrilobular emphysema; Z85.118 Personal history of other malignant neoplasm of bronchus and lung; F17.210 Nicotine dependence, cigarettes, uncomplicated
CPT/HCPCS: 71275; Q9967

== ENCOUNTER 2023-01-27 11:05 | Inpatient (IN) | payer BC, SELFPAY ==
[2023-01-27] VITALS (14 sets, daily range): BP systolic 87–168; BP diastolic 50–92; PULSE 78–115; RESP 17–24; TEMP 36.4–36.6; O2SAT 83–98; BMI 18.2
--- NOTE | 2023-01-27 | CA_ITS ---
APPROVED REPORT EXAM: Limited 2D Echocardiogram Certified Medication Aide: Stefania Michael CRT Ht: 5 ft 1 in Wt: 98lbs BSA: 1.40 BP: 106/76 mmHg Indications: Pericardial effusion, post pericardiocentesis images Other Information Study Quality: Fair Conclusion This is a limited TTE to evaluate for pericardial effusion post pericardiocentesis. Limited windows were obtained. The left ventricle appears normal in size and systolic function. There is residual small sized, anterior pericardial effusion present. Compared to prepericardiocentesis, the effusion appears smaller. Electronically signed by : Mariajose Prather MD 01/28/2023 11:39:22
--- NOTE | 2023-01-27 | IR_ITS ---
APPROVED REPORT Patient Location: Inpatient PROCEDURES Pericardiocentesis Placement of pigtail catheter into the pericardial sac INDICATION Pericardial effusion, History of metastatic lung cancer, Worsening dyspnea, Informed consent was obtained prior to the procedure. COMPLICATIONS None Estimated Blood Loss: Less than 10 ml TECHNIQUE Patient was taken to the [employer] and sterilely prepped. Anesthesia provided propofol for conscious sedation. Echo technicians were in the [employer] and under echo guidance a needle was placed into the pericardial sac. A wire was then advanced into the pericardial sac which was confirmed under echo and by fluoroscopy. Following this a dilator dilated the tract and a pigtail catheter drain was placed into the pericardial space. 160 cc of bloody pericardial fluid was drained. The patient tolerated the procedure well from a hemodynamic standpoint. The pericardial drain was sutured into place and then a fresh pericardial bag was placed onto gravity feed. Patient was transferred to postop putting in stable addition IMPRESSION Successful diagnostic and therapeutic pericardiocentesis Successful placement of pericardial drain into the pericardial space PLAN 1. Supportive care overnight 2. [place] drain for the pericardial pigtail catheter 3. Echocardiogram in the morning 4. Further management per primary cardiology treatment team Electronically signed by : Jorge Harris MD 01/27/2023 13:17:37
--- NOTE | 2023-01-27 11:20 | EXP.CARD.PN ---
Subjective Subjective Date: 01/27/23 Time: 11:20 Principal diagnosis: Pericardial effusion Interval history: Patient was seen in cardiology clinic today. See below: Pt complains of Chest pain and pressure around the left side of chest; comes and goes lasting 10-15 minutes; goes away after resting/elevating left arm on a pillow; radiates into the left arm and left ribs; 5/10. Characteristics of symptom or complaint: chest pain Location: left side of chest Duration: 10-15 minutes Intensity: 5/10 Radiation: Yes (left arm; left ribs ) Pt complains of SOB with activity. improves with rest. this is severe and is significantly worsened. Pt has associated orthopnea and hemoptysis. Pt complains of Swelling in both ankles Denies Dizziness; states she feels funny when bending over Pt complains of occasional Numbness/tingling in both hands Pt complains of Fatigue Pt complains of headaches Exam Constitutional Constitutional: no acute distress and thin *Routine HEENT Exam Head: Present normocephalic and atraumatic ENT: Present mucous membranes moist *Routine Neck Exam Neck: Present supple, full ROM and normal carotid upstroke; Absent JVD, carotid bruit or lymphadenopathy *Routine Respiratory Exam Respiratory: Present CTA bilaterally, normal respiratory effort, able to speak in complete sentences and symmetric chest movement *Routine Cardiovascular Exam Cardiovascular: Present RRR, Normal S1, Normal S2 and tachycardia; Absent murmur or gallop *Routine Abdominal Exam Abdominal: Present soft and normoactive bowel sounds; Absent tenderness, distended or organomegaly *Routine Extremities Exam Extremities: Present full ROM, pulses intact and normal capillary refill; Absent cyanosis, clubbing or edema *Routine Skin Exam Skin: Present intact and warm; Absent erythema *Routine Neurological Exam Neurological: Present alert, oriented X3 and CN II-XII intact; Absent sensory deficit or motor deficit Routine Psychiatric Exam Psychiatric: Present normal affect Progress Note: A&P Assessment and plan (1) Pericardial effusion: Status: Acute (2) Dyspnea: Status: Acute (3) Coughing: Status: Acute (4) Hemoptysis: Status: Acute (5) Orthopnea: Status: Acute (6) CAD (coronary atherosclerotic disease): Status: Acute (7) Stenosis of carotid artery: Status: Acute (8) Smoking greater than 30 pack years: Status: Acute (9) Pulmonary emphysema: Status: Acute (10) History of lung cancer in adulthood: Status: Acute (11) Hilar lymphadenopathy: Status: Acute Assessment and Plan Assessment and Plan for All Diagnoses:: Plan: CAD is present. Medical management in 2014. Hx of SUZAN in 2013. BP acceptable. LDL goal is < 55, LDL is 145.21 in 07/2021. She is not on a statin. Discussed use of statin or injectable, patient declines both. NORIS-No significant right ICA stenosis.50-69% stenosis of the left ICA. (DEC 2022) Hx of RIGHT Carotid Stent placement. Hx of Lung cancer. Tobacco user. Tobacco cessation advised Chest pain/dyspnea, needs evaluation of CAD status. Coughing, reports hemoptysis with cough and orthopnea. Has difficulty speaking without coughing. Pt has known stage III NSCLC followed by Pulm. She has CT scan concerning for metastatic disease, needing further intervention. Has appt to see Dr. Gu in the near future. Echo-Conclusion Mildly reduced LV systolic function (LVEF 45-50%). Asynchronous septum. Mildly dilated RV. Mild biatrial dilation. Mild MR, mild TR. Markedly elevated RVSP 55-60 mmHg. Moderate-sized, anterior pericardial effusion is present. The largest pocket measures 1.1 cm in diastole. No echo indications of tamponade. She has history of noncompliance with her stage III lung cancer treatment. Her echo shows moderate size pericardial effusion anterior region and is associated with chest discomfort worsening over the past week. Patient has been admitted for the
--- NOTE | 2023-01-27 11:36 | HMH.PHAINT1 ---
Pharmacy Intervention Comments: MEDICATION RECONCILIATION COMPLETED ON PATIENT USING EXTERNAL FILL HISTORY FROM PHARMACY, ARLINE REPORT, AND LIST FROM PULMONOLOGY OFFICE. -SABINE WILL, MONTYD
[2023-01-27 11:53] LABS: Basophils % 0.4 % (0.1-2.0); Eosinophils # 0.2 K/mm3 (0.0-0.4); Eosinophils % 1.7 % (0.1-12.0); Hematocrit 43.3 % (37.0-47.0); Hemoglobin 14.4 g/dL (12.2-16.2); Lymphocytes % 9.4 % (10-50); Mean Corpuscular HGB Conc 33.2 g/dL (31.8-35.4); Mean Corpuscular Hemoglobin 30.2 pg (27.0-31.2); Mean Corpuscular Volume 90.9 fl (81-99); Mean Platelet Volume 9.9 fl (7.4-10.4); Monocytes # 0.6 K/mm3 (0.1-1.0); Monocytes % 6.3 % (1.7-9.3); Neutrophils # 8.4 K/mm3 (1.8-7.8); Neutrophils % 82.2 % (37.0-80.0); Platelet Count 345 K/mm3 (142-424); Red Blood Count 4.76 M/mm3 (4.20-5.40); White Blood Count 10.3 K/mm3 (4.8-10.8)
[2023-01-27 12:45] LABS: Chloride 93 mmol/L (98-107); Potassium 4.6 mmoL/L (3.5-5.1); Sodium 131 mmol/L (136-145)
[2023-01-27 12:48] LABS: Anion Gap 9.6 mEq/L (5-15); Blood Urea Nitrogen 8 mg/dl (7-17); Carbon Dioxide 33 mmol/L (22.0-30.0); Creatinine Clearance Estimated 38 mL/min (50-200); Estimated Glomerular Filt Rate 160 ml/min (>60); GFR (African American) 193 ML/MIN (>60); Glucose 97 mg/dl (74-100)
[2023-01-27 13:09] LABS: Troponin I < 0.01 ng/ml (0.00-0.034)
[2023-01-27 14:49] LABS: Troponin I 0.03 ng/ml (0.00-0.034)
[2023-01-27 15:10] LABS: Appearance,Body Fld. Bloody; Mononuclear WBCs,Body Fluid 30 %; Polynuclear WBC,Body Fluid 70 %; RBC,Body Fluid 1199 cells/uL (< 10 X 10^3); Source, Body Fld. Pericardial Fluid; TNC,Body Fluid 997 cells/uL (< 1000); Volume,Body Fld. 200 mL
--- NOTE | 2023-01-27 17:22 | PC.NURSE ---
Pt a&ox4, pt arrived to floor directly from cardiology. Pt started on 5L NC after arriving back to floor from cath lab radiological technologist, weaning as possible. Since previous assessment, pt is on 3L NC, lung sounds clear bilaterally. Abdomen soft and nontender, bowel sounds active. After coming back from cath lab radiological technologist, drain is intact to mid chest area with a gravity drain bag, 100ml of bloody fluid in bag on recent check. Per cath lab radiological technologist nurse, we do not do anything with the drain. Pt has complained of pain twice this shift, once before and once after cath lab radiological technologist, treated per apr. Vital signs stable, BP has lowered since administration of pain medication, MAP has maintained 65 or over. Pt has no other complaints. Bed in lowest position, call light in reach.
--- NOTE | 2023-01-27 18:27 | EXP.HP ---
History of Present Illness *Admission Date: 01/27/23 *Reason for visit:: Shortness of breath *History of present illness: Patient is a 67-year-old female who presents to the hospital from cardiology office due to concern of pericardial effusion. Patient has past medical history of CAD, lung cancer, tobacco use, hyperlipidemia and hypertension. Patient was noticed to have pericardial effusion, patient complained of chest pain, pressure to the left side of chest patient was noticed to have pericardial effusion and was sent to the hospital for further evaluation plan is for possible pericardiocentesis per cardiology. Patient denied fever chills diarrhea constipation dysuria abdominal pain PFSH [facility] Disclaimer: The information contained in this section may have been updated after the patient was seen, as this information can be updated by other users. Medical History (Updated 01/27/23 @ 11:48 by ANTONINA Cabrera) Anxiety Cancer Heart attack Hemoptysis Hilar lymphadenopathy History of lung cancer in adulthood Lung cancer Migraine Nodule of right lung Orthopnea Pulmonary emphysema Smoking greater than 30 pack years Stenosis of carotid artery Tooth abscess Surgical History History of bladder surgery History of heart artery stent History of hysterectomy Family History Other Cancer Heart attack Hypertension Stroke Social History Smoking Status: Current every day smoker tobacco type: cigarettes packs per day: 1 alcohol intake: never substance use type: denies use current occupational status: other Travel in the last 8 weeks: None Review of Systems Review of Systems Review of systems (narrative): as per HPI Meds Home Medications and Allergies Home Medications Medication Instructions Recorded Confirmed Type albuterol sulfate 90 mcg/actuation 2 inh inhalation QIDP PRN 01/27/23 01/27/23 History aerosol inhaler shortness of breath or wheezing diazepam 5 mg tablet (Valium) 5 mg PO BIDP PRN anxiety 01/27/23 01/27/23 History tiotropium 2.5 mcg-olodaterol 2.5 2 puff inhalation DAILY Breathing 01/27/23 01/27/23 History mcg/actuation mist for inhalation Problems (Stiolto Respimat) New Prescriptions to Start Prescriptions: Allergies Allergy/AdvReac Type Severity Reaction Status Date / Time aspirin AdvReac Other Verified 01/27/23 12:26 Exam Data for Last 24 hours Vital signs and Labs for Last 24 Hours: Temp Pulse Resp BP Pulse Ox O2 Del Method O2 Flow Rate 97.9 F 79 18 99/54 L 93 L Nasal Cannula 3 01/27/23 11:36 01/27/23 16:18 01/27/23 15:45 01/27/23 15:45 01/27/23 15:45 01/27/23 17:00 01/27/23 17:00 Laboratory Results - last 24 hr 01/27/23 11:30: WBC 10.3, RBC 4.76, Hgb 14.4, Hct 43.3, MCV 90.9, MCH 30.2, MCHC 33.2, RDW 14.0, Plt Count 345, MPV 9.9, Neut % (Auto) 82.2 H, Lymph % (Auto) 9.4 L, [place] % (Auto) 6.3, Eos % (Auto) 1.7, Baso % (Auto) 0.4, Neut # (Auto) 8.4 H, Lymph # (Auto) 1.0, [place] # (Auto) 0.6, Eos # (Auto) 0.2, Baso # (Auto) 0.0 01/27/23 12:17: Sodium 131 L, Potassium 4.6, Chloride 93 L, Carbon Dioxide 33 H, Anion Gap 9.6, BUN 8, Creatinine 0.40 L, Estimated Creat Clear 38, Estimated GFR 160, Est GFR ( Amer) 193, Glucose 97, Calcium 9.0, Troponin I < 0.01 01/27/23 14:15: Troponin I 0.03 01/27/23 : Fluid Source Pericardial fluid, Fluid Volume 200, Fluid Appearance Bloody, Fluid RBC (Auto) 1199, Fld Tot Nucleated Cell 997, Fld Polynuclear WBCs % 70, Fld Mononuclear WBCs % 30 I & O for Last 24 hours: Intake & Output 01/24/23 01/25/23 01/26/23 01/27/23 23:59 23:59 23:59 23:59 Intake Total 0 / 0 Balance 0 / 0 Weight 43.772 kg Constitutional Constitutional: no acute distress *Routine HEENT Exam Head: Present normocephalic Eye: Present EOMI and PERRL ENT: Pres
[2023-01-27 18:57] LABS: Troponin I 0.06 ng/ml (0.00-0.034)
[2023-01-27 20:35] LABS: Troponin I 0.06 ng/ml (0.00-0.034)
--- NOTE | 2023-01-27 21:45 | PC.NURSE ---
Patient voiced pain to mid-chest, rating pain 10 on pain scale, voiced it as pressure discomfort radiating up around her shoulders into her upper back/neck. PRN Percocet 10/325mg given as ordered with no effectiveness. Chest tube patent with 85cc of bloody drainage at this time. Server Cashier titrated O2 from 4.5L to 6L with no effectiveness. Server Cashier called RT d/t patient's O2 sat dropping into the low 80's on 6L per NC. Server Cashier notified on-call Doctor, Dr. Dent, of change. Dr. Dent assessed patient. New orders received. Patient placed on a Bi-Pap via RT. O2 is at 98% on the Bi-Pap at this time. New order placed for Morphine. PRN Morphine given as ordered with effectiveness. Patient is currently rating pain a 4 . Patient is laying in bed with daughters at bedside, patient looks very comfort at this time and voiced to com writer that she feels comfortable.
[2023-01-27 23:49] LABS: Troponin I 0.05 ng/ml (0.00-0.034)
[2023-01-28] VITALS (21 sets, daily range): BP systolic 73–98; BP diastolic 41–58; PULSE 85–120; RESP 16–22; TEMP 36.4–37.5; O2SAT 91–99; BMI 19.3
--- NOTE | 2023-01-28 | CA_ITS ---
APPROVED REPORT EXAM: Limited 2D Echocardiogram Early Childhood Educator Aide: Stefania Michael CRT Ht: 5 ft 2 in Wt: 161lbs BSA: 1.74 BP: 106/76 mmHg Indications: Pericardial drain in place, post pericardiocentesis 01/27/23, cancer Other Information Study Quality: Fair Conclusion This is a limited TTE to evaluate for pericardial effusion in the setting of ongoing pericardial drainage. Limited windows were obtained. The left ventricle appears normal in size and function. There is a small sized pericardial effusion present. The largest pocket measures 0.8 cm in diastole. The effusion is mostly anterior, but there is also a small posterior pocket noted in this study. Compared to prior study from 1 day prior, the effusion overall appears similar or slightly improved. Electronically signed by : Mariajose Prather MD 01/28/2023 11:41:08
--- NOTE | 2023-01-28 05:15 | PC.NURSE ---
Patient has not voided this far in shift. BP soft. [employer] notified Dr. Dent of the hypotension and the zero output. Dr. Dent assessed patient in room. New order for NaCl 0.9% 500cc Bolus to be infused over 30 minutes, repeat until urine output is noted.
--- NOTE | 2023-01-28 06:22 | PC.NURSE ---
Patient received the Bolus of IV fluids with effectiveness noted. Patient voiced she needed to urinate. Bed santo placed under patient d/t patient being on the bi-pap. 200cc or dark yellow urine noted.
[2023-01-28 06:53] LABS: Basophils % 0.1 % (0.1-2.0); Eosinophils % 0.2 % (0.1-12.0); Hematocrit 39.7 % (37.0-47.0); Lymphocytes # 0.8 K/mm3 (0.7-4.5); Lymphocytes % 4.8 % (10-50); Mean Corpuscular HGB Conc 31.8 g/dL (31.8-35.4); Mean Corpuscular Hemoglobin 29.7 pg (27.0-31.2); Mean Corpuscular Volume 93.4 fl (81-99); Mean Platelet Volume 8.4 fl (7.4-10.4); Monocytes # 0.9 K/mm3 (0.1-1.0); Monocytes % 5.6 % (1.7-9.3); Neutrophils # 14.4 K/mm3 (1.8-7.8); Neutrophils % 89.2 % (37.0-80.0); Platelet Count 327 K/mm3 (142-424); Red Blood Count 4.25 M/mm3 (4.20-5.40); Red Cell Distribution Width 13.9 % (11.5-17.5); White Blood Count 16.1 K/mm3 (4.8-10.8)
[2023-01-28 06:58] LABS: Chloride 97 mmol/L (98-107); MANUAL DIFFERENTIAL MANUAL DIFFERENTIAL (MANUAL DIFF); Sodium 130 mmol/L (136-145)
[2023-01-28 06:59] LABS: Potassium 4.6 mmoL/L (3.5-5.1)
[2023-01-28 07:01] LABS: Alanine Aminotransferase 15 U/L (12-78); Albumin Level 3.2 g/dl (3.5-5.0); Alkaline Phosphatase 69 U/L (38-126); Anion Gap 8.6 mEq/L (5-15); Aspartate Amino Transferase 21 U/L (14-36); Bilirubin,Direct 0.2 mg/dl (0.0-0.4); Bilirubin,Indirect 0.2 mg/dL (0.0-0.9); Bilirubin,Total 0.4 mg/dl (0.2-1.3); Bilirubin,Unconjugated 0.2 mg/dL (0.0-1.1); Blood Urea Nitrogen 14 mg/dl (7-17); Carbon Dioxide 29 mmol/L (22.0-30.0); Cholesterol 129 mg/dl (140-200); Creatinine Clearance Estimated 40 mL/min (50-200); Estimated Glomerular Filt Rate 63 ml/min (>60); GFR (African American) 76 ML/MIN (>60); Total Protein,Serum 5.9 g/dl (6.3-8.2); Triglycerides 86 mg/dl (30-150); VLDL Cholesterol 17 mg/dL (0-40)
[2023-01-28 07:02] LABS: Glucose 133 mg/dl (74-100); HDL Cholesterol 32 mg/dl (40-60)
[2023-01-28 09:26] LABS: Eosinophils % 1 % (0-3); Lymphocytes % 13 % (10-50); Monocytes % 4 % (2-9); Neutrophils % 82 % (42-76); Platelet Estimate Normal; RBC Morphology Normal; Total Cells Counted 100
--- NOTE | 2023-01-28 09:34 | EXP.CARD.PN ---
Subjective Subjective Date: 01/28/23 Time: 08:30 Principal diagnosis: Pericardial effusion Interval history: This is a 67-year-old white female who presented to cardiology office yesterday with a pericardial effusion. The patient was admitted to the hospital due to her symptoms from the pericardial effusion. She did undergo pericardiocentesis yesterday with 160 mL of blood-tinged fluid drained from her pericardium. The pericardial drain was left in place to gravity. She had an additional 185 mL of drainage since the pericardial drain was left in place. This morning she is hypotensive but asymptomatic. She denies any dizziness or syncope. She denies any chest pain or pressure. She states that she is still little short of breath but this is much better than it was prior to the pericardiocentesis. She thinks that her shortness of breath is most likely from how she is positioned in the bed. She denies any lower extremity edema. She denies any fever, chills, nausea, vomiting, diarrhea. Exam Data for Last 24 hours Vital signs and Labs for Last 24 Hours: Temp Pulse Resp BP Pulse Ox O2 Del Method O2 Flow Rate 97.7 F 93 H 18 80/41 L 92 L Nasal Cannula 6 01/28/23 07:43 01/28/23 08:00 01/28/23 07:43 01/28/23 07:43 01/28/23 08:00 01/28/23 08:49 01/28/23 08:49 FiO2 75 01/28/23 06:20 Laboratory Results - last 24 hr 01/27/23 11:30: WBC 10.3, RBC 4.76, Hgb 14.4, Hct 43.3, MCV 90.9, MCH 30.2, MCHC 33.2, RDW 14.0, Plt Count 345, MPV 9.9, Neut % (Auto) 82.2 H, Lymph % (Auto) 9.4 L, [place] % (Auto) 6.3, Eos % (Auto) 1.7, Baso % (Auto) 0.4, Neut # (Auto) 8.4 H, Lymph # (Auto) 1.0, [place] # (Auto) 0.6, Eos # (Auto) 0.2, Baso # (Auto) 0.0 01/27/23 12:17: Sodium 131 L, Potassium 4.6, Chloride 93 L, Carbon Dioxide 33 H, Anion Gap 9.6, BUN 8, Creatinine 0.40 L, Estimated Creat Clear 38, Estimated GFR 160, Est GFR ( Amer) 193, Glucose 97, Calcium 9.0, Troponin I < 0.01 01/27/23 14:15: Troponin I 0.03 01/27/23 17:50: Troponin I 0.06 H 01/27/23 20:10: Troponin I 0.06 H 01/27/23 23:23: Troponin I 0.05 H 01/27/23 : Fluid Source Pericardial fluid, Fluid Volume 200, Fluid Appearance Bloody, Fluid RBC (Auto) 1199, Fld Tot Nucleated Cell 997, Fld Polynuclear WBCs % 70, Fld Mononuclear WBCs % 30 01/28/23 06:27: WBC 16.1 H D, RBC 4.25, Hct 39.7, MCV 93.4, MCH 29.7, MCHC 31.8, RDW 13.9, Plt Count 327, MPV 8.4, Neut % (Auto) 89.2 H, Lymph % (Auto) 4.8 L, [place] % (Auto) 5.6, Eos % (Auto) 0.2, Baso % (Auto) 0.1, Neut # (Auto) 14.4 H, Lymph # (Auto) 0.8, [place] # (Auto) 0.9, Eos # (Auto) 0.0, Baso # (Auto) 0.0, Total Counted 100, Neutrophils % (Manual) 82 H, Lymphocytes % (Manual) 13, Monocytes % (Manual) 4, Eosinophils % (Manual) 1, Platelet Estimate Normal, RBC Morphology Normal, Sodium 130 L, Potassium 4.6, Chloride 97 L, Carbon Dioxide 29, Anion Gap 8.6, BUN 14 D, Creatinine 0.90 D, Estimated Creat Clear 40, Estimated GFR 63, Est GFR ( Amer) 76 D, Glucose 133 H D, Calcium 8.0 L, Total Bilirubin 0.4, Direct Bilirubin 0.2, Conjugated Bilirubin 0.0, Indirect Bilirubin 0.2, Unconjugated Bilirubin 0.2, AST 21, ALT 15, Alkaline Phosphatase 69, Total Protein 5.9 L, Albumin 3.2 L, Triglycerides 86, Cholesterol 129 L, LDL Cholesterol Direct 78.00 L, VLDL Cholesterol 17, HDL Cholesterol 32 L, Cholesterol/HDL Ratio 4.0 H I & O for Last 24 hours: Intake & Output 01/25/23 01/26/23 01/27/23 01/28/23 23:59 23:59 23:59 23:59 Intake Total 0 / 120 700 / 700 Output Total 285 / 285 Balance 0 / 35 415 / 415 Weight 96 lb 8 oz 102 lb 1.6 oz Constitutional Constitutional: no acute distress and thin *Routine HEENT Exam Head: Present normocephalic and atraumatic ENT: Present mucous membranes moist *Routine Neck Exam Neck: Present supple, full ROM and normal carotid upstroke; Absent JVD, carotid bruit or lymphadenopathy *Routine Respiratory Exam Respiratory: Present CTA bilaterally, normal respiratory effort, able to speak in complete sentences and symmetric c
--- NOTE | 2023-01-28 09:40 | EXP.PULM.CON ---
History of Present Illness History of present illness: Ms. eMlo is a 67-year-old female with history of lung cancer in 2020 status post radiation without any chemotherapy recently CT showing worsening right hilar adenopathy conglomerate mass along with new nodules which are FGD avid on her PET scan presented to the hospital with concerns for pericardial effusion for admission from cardiology clinic. Patient denies any worsening cough and worsening productive phlegm. Denies any significant wheezing. [facility] Disclaimer: The information contained in this section may have been updated after the patient was seen, as this information can be updated by other users. Medical History (Updated 01/28/23 @ 10:46 by Jose Sellers MD) Acute hypoxemic respiratory failure Anxiety Cancer Heart attack Hemoptysis Hilar lymphadenopathy History of lung cancer in adulthood Lung cancer Migraine Nodule of right lung Orthopnea Primary lung cancer Pulmonary emphysema Smoking greater than 30 pack years Stenosis of carotid artery Tooth abscess Surgical History History of bladder surgery History of heart artery stent History of hysterectomy Family History Other Cancer Heart attack Hypertension Stroke Social History Smoking Status: Current every day smoker tobacco type: cigarettes packs per day: 1 alcohol intake: never substance use type: denies use current occupational status: other Travel in the last 8 weeks: None Review of Systems Constitutional Constitutional: Reports anorexia, Reports body ache(s) and Reports fatigue Eyes Eyes: Denies eye discharge, Denies dry eyes, Denies irritation and Denies itchy eyes ENT Ears, Nose, Mouth, and Throat: Denies epistaxis, Denies facial pain, Denies lip swelling and Denies throat swelling *Cardiovascular Cardiovascular: Reports dyspnea and Reports dyspnea on exertion *Respiratory Respiratory: Reports chest congestion, Reports cough, Reports dyspnea, Reports dyspnea on exertion, Denies excessive phlegm production, Denies hemoptysis, Denies pain on inspiration, Denies pain with cough and Reports wheezing *Gastrointestinal Gastrointestinal: Denies abdominal pain, Denies belching and Denies cramping *Musculoskeletal Musculoskeletal: Reports back pain, Reports myalgias and Reports other (No small joint swelling or Pain) Psychiatric Psychiatric: Denies homicidal ideation and Denies suicidal ideation Endocrine Endocrine: Reports fatigue and Denies heat intolerance Hematologic/Lymphatic Hematologic/Lymphatic: Denies easy bleeding and Denies lymphadenopathy Allergic/Immunologic Allergic/Immunologic: Denies itchy eyes, Denies lip swelling, Denies throat swelling and Reports wheezing Pulmonology Exam Inpatient Vital signs and Labs for Last 24 Hours: Temp Pulse Resp BP Pulse Ox O2 Del Method O2 Flow Rate 97.7 F 93 H 18 80/41 L 92 L Nasal Cannula 6 01/28/23 07:43 01/28/23 08:00 01/28/23 07:43 01/28/23 07:43 01/28/23 08:00 01/28/23 08:49 01/28/23 08:49 FiO2 75 01/28/23 06:20 Laboratory Results - last 24 hr 01/27/23 11:30: WBC 10.3, RBC 4.76, Hgb 14.4, Hct 43.3, MCV 90.9, MCH 30.2, MCHC 33.2, RDW 14.0, Plt Count 345, MPV 9.9, Neut % (Auto) 82.2 H, Lymph % (Auto) 9.4 L, [place] % (Auto) 6.3, Eos % (Auto) 1.7, Baso % (Auto) 0.4, Neut # (Auto) 8.4 H, Lymph # (Auto) 1.0, [place] # (Auto) 0.6, Eos # (Auto) 0.2, Baso # (Auto) 0.0 01/27/23 12:17: Sodium 131 L, Potassium 4.6, Chloride 93 L, Carbon Dioxide 33 H, Anion Gap 9.6, BUN 8, Creatinine 0.40 L, Estimated Creat Clear 38, Estimated GFR 160, Est GFR ( Amer) 193, Glucose 97, Calcium 9.0, Troponin I < 0.01 01/27/23 14:15: Troponin I 0.03 01/27/23 17:50: Troponin I 0.06 H 01/27/23 20:10: Troponin I 0.06 H 01/27/23 23:23: Troponin I 0.05 H 01/27/23 : Fluid Source Pericardial fluid
[2023-01-28 11:00] LABS: Adenovirus,PCR Not Detected (NotDetected); Coronavirus 19, PCR Not Detected (NotDetected); Coronavirus 229E Not Detected (NotDetected); Coronavirus NL63 Not Detected (NotDetected); Coronavirus OC43 Not Detected (NotDetected); Coronovirus HKU1,PCR Not Detected (NotDetected); Human Metapneumovirus Not Detected (NotDetected); Influenza A, PCR Not Detected (NotDetected); Influenza AH1, 2009 Not Detected (NotDetected); Influenza AH1, PCR Not Detected (NotDetected); Influenza AH3,PCR Not Detected (NotDetected); Influenza B, PCR Not Detected (NotDetected); Parainfluenza 1, PCR Not Detected (NotDetected); Parainfluenza 2, PCR Not Detected (NotDetected); Parainfluenza 3, PCR Not Detected (NotDetected); Parainfluenza 4, PCR Not Detected (NotDetected); Respiratory Syncytial Virus Not Detected (NotDetected); Rhinovirus/Enterovirus Not Detected (NotDetected)
[2023-01-28 11:43] LABS: Hemoglobin 12.6 g/dL (12.2-16.2)
[2023-01-28 12:49] LABS: Albumin, Body Fluid 3.4 g/dL (Not Estab.); Amylase, Body Fluid 17 U/L (.); Glucose, Body Fluid 87 mg/dL (.); LD, Body Fluid 319 IU/L (.); Protein, Body Fluid 5.3 g/dL (.)
--- NOTE | 2023-01-28 17:14 | PC.NURSE ---
Pt is a&ox4, pt has complained of pain one time this shift, treated per mar. Pt has ambulated to the bathroom with standby assistance. Pt has remained on NC ranging from 4-6L to maintain O2 sat >90%. Pt has had several coughing fits, this decreases her sat. Pt is currently on 6L NC at 92%. Pt is coughing up scant amounts of sputum. Royal drain bag is measuring at 300mL. Pt has complained of her back itching with rash, paged, new orders, treated per orders. Pt BP has maintained a MAP >60 after receiving another liter bolus. Pt requested to shower after dinner. Left lung throughout wheezing on inspiration. Right lung diminished. Abdomen soft, nontender. Bowel sounds active. No other complaints this shift. Call light in reach, bed in lowest position.
--- NOTE | 2023-01-28 18:03 | EXP.PN ---
Subjective *Date: 01/28/23 *Time: 18:03 Interval history: Patient was seen and evaluated at the bedside. denies chest pain, shortness of breath, nausea, vomiting, abdominal pain. Patient does not have any complaints at this time. feels better overall Exam Data for Last 24 hours Vital signs and Labs for Last 24 Hours: Temp Pulse Resp BP Pulse Ox O2 Del Method O2 Flow Rate 97.6 F 93 H 18 98/58 L 93 L Nasal Cannula 6 01/28/23 15:07 01/28/23 16:00 01/28/23 15:07 01/28/23 15:07 01/28/23 15:07 01/28/23 17:00 01/28/23 17:00 FiO2 75 01/28/23 06:20 Laboratory Results - last 24 hr 01/27/23 13:30: Fluid Glucose 87, Fluid Total Protein 5.3, Fluid Albumin 3.4, Fluid LDH 319, Fluid Amylase 17 01/27/23 17:50: Troponin I 0.06 H 01/27/23 20:10: Troponin I 0.06 H 01/27/23 23:23: Troponin I 0.05 H 01/28/23 06:27: WBC 16.1 H D, RBC 4.25, Hgb 12.6 D, Hct 39.7, MCV 93.4, MCH 29.7, MCHC 31.8, RDW 13.9, Plt Count 327, MPV 8.4, Neut % (Auto) 89.2 H, Lymph % (Auto) 4.8 L, [place] % (Auto) 5.6, Eos % (Auto) 0.2, Baso % (Auto) 0.1, Neut # (Auto) 14.4 H, Lymph # (Auto) 0.8, [place] # (Auto) 0.9, Eos # (Auto) 0.0, Baso # (Auto) 0.0, Total Counted 100, Neutrophils % (Manual) 82 H, Lymphocytes % (Manual) 13, Monocytes % (Manual) 4, Eosinophils % (Manual) 1, Platelet Estimate Normal, RBC Morphology Normal, Sodium 130 L, Potassium 4.6, Chloride 97 L, Carbon Dioxide 29, Anion Gap 8.6, BUN 14 D, Creatinine 0.90 D, Estimated Creat Clear 40, Estimated GFR 63, Est GFR ( Amer) 76 D, Glucose 133 H D, Calcium 8.0 L, Total Bilirubin 0.4, Direct Bilirubin 0.2, Conjugated Bilirubin 0.0, Indirect Bilirubin 0.2, Unconjugated Bilirubin 0.2, AST 21, ALT 15, Alkaline Phosphatase 69, Total Protein 5.9 L, Albumin 3.2 L, Triglycerides 86, Cholesterol 129 L, LDL Cholesterol Direct 78.00 L, VLDL Cholesterol 17, HDL Cholesterol 32 L, Cholesterol/HDL Ratio 4.0 H 01/28/23 10:50: Chlamy pneumoniae PCR TNP, Adenovirus (PCR) Not detected, B. pertussis DNA (PCR) TNP, Coronavirus OC43 (PCR) Not detected, Coronavirus HKU1 (PCR) Not detected, Coronavirus 229E (PCR) Not detected, SARS-CoV-2 (PCR) Not detected, Coronavirus NL63 (PCR) Not detected, Human Metapneumovir PCR Not detected, Influenza A (H1) PCR Not detected, Influ A (H1N1/09) PCR Not detected, Influenza A (H3) PCR Not detected, Influenza Type A (PCR) Not detected, Influenza Type B (PCR) Not detected, M. pneumoniae (PCR) TNP, Parainfluenza 1 (PCR) Not detected, Parainfluenza 2 (PCR) Not detected, Parainfluenza 3 (PCR) Not detected, Parainfluenza 4 (PCR) Not detected, RSV (PCR) Not detected, Entero/Rhino (PCR) Not detected I & O for Last 24 hours: Intake & Output 01/25/23 01/26/23 01/27/23 01/28/23 23:59 23:59 23:59 23:59 Intake Total 0 / 120 2780 / 2780 Output Total 285 / 285 Balance 0 / 35 2495 / 2495 Weight 43.772 kg 46.312 kg Constitutional Constitutional: no acute distress Comments: has drain attached from chest *Routine HEENT Exam Head: Present normocephalic Eye: Present EOMI and PERRL ENT: Present mucous membranes moist *Routine Neck Exam Neck: Present supple; Absent lymphadenopathy *Routine Respiratory Exam Respiratory: Present CTA bilaterally *Routine Cardiovascular Exam Cardiovascular: Present RRR *Routine Abdominal Exam Abdominal: Present soft and normoactive bowel sounds; Absent tenderness *Routine Extremities Exam Extremities: Absent cyanosis, clubbing or edema *Routine Skin Exam Skin: Present warm; Absent rash *Routine Neurological Exam Neurological: Present alert and oriented X3 Assessment and Plan *Assessment and plan (1) NSCLC of left lung: Status: Chronic Category: Medical Code(s): C34.92 - Malignant neoplasm of unspecified part of left bronchus or lung (2) CAD (coronary atherosclerotic disease): Status: Acute Qualifiers: Coronary Disease-Associated Artery/Lesion type: [place] artery [place] vs. transplanted heart: [place] [facility]
[2023-01-29] VITALS (37 sets, daily range): BP systolic 68–140; BP diastolic 40–99; PULSE 89–134; RESP 14–34; TEMP 36.6–37.2; O2SAT 85–100; BMI 19.3
--- NOTE | 2023-01-29 02:54 | ECG_ITS ---
APPROVED REPORT Exam: Resting ECG HR:155 bpm ECG Measurements Heart Rate 155 AXES QRSd 89 QRS -66 QT 260 T 89 QTc 347 Conclusion ATRIAL FLUTTER/TACHYCARDIA WITH RAPID VENTRICULAR RESPONSE PATTERN CONSISTENT WITH PULMONARY DISEASE SEPTAL MYOCARDIAL INFARCTION , PROBABLY OLD [40+ ms Q WAVE IN V1/V2] INFERIOR MYOCARDIAL INFARCTION , PROBABLY OLD [40+ ms Q WAVE AND/OR ST/T ABNORMALITY IN II/aVF] CRITICAL TEST RESULT UNCONFIRMED REPORT Electronically signed by : Mk Reagan MD 01/30/2023 16:33:02
--- NOTE | 2023-01-29 03:15 | PC.NURSE ---
Patient became Tachycardic at 0245 alarming the manager monitoring. Ignition Expert, Elementary School Librarian, Charge Nurse and a Floor Nurse assessed patient. Patient voiced that she felt tightness in her chest and felt SOB. EKG ordered and completed with a critical result of Atrial Flutter/Tachycardia w/ RVR. Ignition Expert paged Dr. Harris immediately ([id number]). Dr. Harris called back within 2 minutes of being paged. Ignition Expert voiced to Dr. Harris the change in heart rate and that patient is voicing tightness in chest with SOB, 02 slowing dropping from 90's to 80's on 6L NC. Patient does not have a H/O A-Fib noted in patients chart. Lovenox order was verified per Dr. Harris and a N.O. Metoprolol Tartrate 50mg PO X1. Ignition Expert made Patient aware of new orders and that Dr. Harris was notified. Patient voiced understanding. R.T currently in room with patient and is placing patient back on the Bi-Pap.
--- NOTE | 2023-01-29 04:05 | PC.NURSE ---
At 0400, Patient's BP 68/40 (manual), Phlebotomy Specialist notified Naif PULLIAM. New order to give NaCl 0.9% 500mL Bolus.
--- NOTE | 2023-01-29 05:35 | PC.NURSE ---
Bolus completed. BP: 72/40. Patients HR is 108. Scientific Director paged Dr. Harris and received N.O. 1. NaCl 0.9% 1000mL Bolus, 2. Transfer to Step Down. Scientific Director notified patrol community service officer of change in rooms. Patient is to be transferred. Scientific Director will notify family. Step Down RN aware of Transfer.
[2023-01-29 06:49] LABS: Basophils % 0.2 % (0.1-2.0); Eosinophils # 0.1 K/mm3 (0.0-0.4); Eosinophils % 0.7 % (0.1-12.0); Hematocrit 34.3 % (37.0-47.0); Hemoglobin 11.1 g/dL (12.2-16.2); Lymphocytes # 0.7 K/mm3 (0.7-4.5); Lymphocytes % 5.5 % (10-50); Mean Corpuscular HGB Conc 32.5 g/dL (31.8-35.4); Mean Corpuscular Volume 92.4 fl (81-99); Mean Platelet Volume 8.6 fl (7.4-10.4); Monocytes # 0.7 K/mm3 (0.1-1.0); Monocytes % 5.8 % (1.7-9.3); Neutrophils # 11.1 K/mm3 (1.8-7.8); Neutrophils % 87.7 % (37.0-80.0); Platelet Count 254 K/mm3 (142-424); Red Blood Count 3.71 M/mm3 (4.20-5.40); Red Cell Distribution Width 13.8 % (11.5-17.5); White Blood Count 12.6 K/mm3 (4.8-10.8)
[2023-01-29 06:53] LABS: MANUAL DIFFERENTIAL MANUAL DIFFERENTIAL (MANUAL DIFF)
[2023-01-29 06:56] LABS: Anion Gap 6.6 mEq/L (5-15); Blood Urea Nitrogen 7 mg/dl (7-17); Calcium 7.2 mg/dl (8.4-10.2); Carbon Dioxide 27 mmol/L (22.0-30.0); Chloride 98 mmol/L (98-107); Creatinine Clearance Estimated 41 mL/min (50-200); Estimated Glomerular Filt Rate 160 ml/min (>60); GFR (African American) 193 ML/MIN (>60); Glucose 112 mg/dl (74-100); Potassium 4.6 mmoL/L (3.5-5.1); Sodium 127 mmol/L (136-145)
[2023-01-29 07:21] LABS: Lymphocytes % 8 % (10-50); Monocytes % 2 % (2-9); Neutrophils % 89 % (42-76); Total Cells Counted 100
[2023-01-29 07:22] LABS: RBC Morphology Normal
[2023-01-29 07:23] LABS: Hypochromasia 1+; Platelet Estimate Normal
--- NOTE | 2023-01-29 08:42 | CA_ITS ---
APPROVED REPORT EXAM: Limited 2D Echocardiogram Auto Mechanic: Stefania Michael CRT Ht: 5 ft 2 in Wt: 102lbs BSA: 1.44 BP: 92/65 mmHg Indications: pericardial effusion check, pericardial drain in place Other Information Study Quality: Fair Conclusion This is a limited TTE to evaluate for pericardial effusion. Limited windows were obtained. There is trivial, anterior pericardial effusion noted. No echo indications of tamponade. Compared to prior study from 1 day prior, the pericardial effusion is now further improved. Electronically signed by : Mariajose Prather MD 01/29/2023 23:17:51
--- NOTE | 2023-01-29 09:50 | EXP.PULM.PN ---
Subjective *Date: 01/29/23 *Time: 14:20 Interval history: Patient admits worsening respiratory status. Pulmonology Exam Inpatient Vital signs and Labs for Last 24 Hours: Temp Pulse Resp BP Pulse Ox O2 Del Method O2 Flow Rate 97.9 F 114 H 22 82/59 L 93 L BiPAP 60 01/29/23 03:50 01/29/23 08:30 01/29/23 08:30 01/29/23 08:30 01/29/23 08:30 01/29/23 09:00 01/29/23 09:00 FiO2 75 01/29/23 08:30 Laboratory Results - last 24 hr 01/27/23 13:30: Fluid Glucose 87, Fluid Total Protein 5.3, Fluid Albumin 3.4, Fluid LDH 319, Fluid Amylase 17 01/28/23 06:27: Hgb 12.6 D 01/28/23 10:50: Chlamy pneumoniae PCR TNP, Adenovirus (PCR) Not detected, B. pertussis DNA (PCR) TNP, Coronavirus OC43 (PCR) Not detected, Coronavirus HKU1 (PCR) Not detected, Coronavirus 229E (PCR) Not detected, SARS-CoV-2 (PCR) Not detected, Coronavirus NL63 (PCR) Not detected, Human Metapneumovir PCR Not detected, Influenza A (H1) PCR Not detected, Influ A (H1N1/09) PCR Not detected, Influenza A (H3) PCR Not detected, Influenza Type A (PCR) Not detected, Influenza Type B (PCR) Not detected, M. pneumoniae (PCR) TNP, Parainfluenza 1 (PCR) Not detected, Parainfluenza 2 (PCR) Not detected, Parainfluenza 3 (PCR) Not detected, Parainfluenza 4 (PCR) Not detected, RSV (PCR) Not detected, Entero/Rhino (PCR) Not detected 01/29/23 06:33: WBC 12.6 H, RBC 3.71 L, Hgb 11.1 L, Hct 34.3 L, MCV 92.4, MCH 30.0, MCHC 32.5, RDW 13.8, Plt Count 254, MPV 8.6, Neut % (Auto) 87.7 H, Lymph % (Auto) 5.5 L, [place] % (Auto) 5.8, Eos % (Auto) 0.7, Baso % (Auto) 0.2, Neut # (Auto) 11.1 H, Lymph # (Auto) 0.7, [place] # (Auto) 0.7, Eos # (Auto) 0.1, Baso # (Auto) 0.0, Total Counted 100, Neutrophils % (Manual) 89 H, Band Neutrophils % 1.0, Lymphocytes % (Manual) 8 L, Monocytes % (Manual) 2, Platelet Estimate Normal, RBC Morphology Normal, Hypochromasia 1+, Sodium 127 L, Potassium 4.6, Chloride 98, Carbon Dioxide 27, Anion Gap 6.6, BUN 7 D, Creatinine 0.40 L D, Estimated Creat Clear 41, Estimated GFR 160, Est GFR ( Amer) 193 D, Glucose 112 H, Calcium 7.2 L I & O for Labs for Last 24 Hours: Intake & Output 01/26/23 01/27/23 01/28/23 01/29/23 23:59 23:59 23:59 23:59 Intake Total 0 / 120 2780 / 2960 180 / 180 Output Total 285 / 285 220 / 220 Balance 0 / 35 2495 / 2675 -40 / -40 Weight 96 lb 8 oz 102 lb 1.6 oz 102 lb 10.356 oz Constitutional: Present moderate distress Head: Present normocephalic and atraumatic ENT: Present normal exam, normal oropharynx and mucous membranes moist Neck: Present normal inspection and full ROM Respiratory: Present respiratory distress, rhonchi, diminished air movement and able to speak in complete sentences; Absent wheezes Comment:: Pericardial drain in place. Decreased breath sounds right upper lung bal[place]. Cardiac: Present S1/S2, Tachycardia and radial pulses present GI: Present soft and distention; Absent tenderness or guarding Rectal (female): Present deferred (female): Present deferred Skin: Present intact; Absent cyanosis or jaundice Neuro: Present alert, awake and oriented x 3 Extremities: Present normal inspection; Absent clubbing or cyanosis Psychiatric: Present normal affect and cooperative Assessment and Plan *Assessment and plan (1) Acute hypoxemic respiratory failure: Status: Acute Category: Medical Code(s): J96.01 - Acute respiratory failure with hypoxia (2) Primary lung cancer: Status: Acute Qualifiers: Laterality: right Qualified Code(s): C34.91 - Malignant neoplasm of unspecified part of right bronchus or lung Category: Medical Code(s): C34.90 - Malignant neoplasm of unspecified part of unspecified bronchus or lung (3) Pneumonia: Status: Resolved Qualifiers: Laterality: left Lung location: upper lobe of lung Pneumonia type: due to unspecified organism Qualified Code(s): J18.9 - Pneumonia, unspecified organism Category: Medical Code(s): J18.9 - Pneu
--- NOTE | 2023-01-29 09:56 | XR_ITS ---
FINAL REPORT CLINICAL HISTORY: PNM COMPARISON: 12/24/2022 FINDINGS: SINGLE-VIEW CHEST The heart measures in the upper limits of normal in size. The mediastinum is normal. There is patchy airspace opacity at the bases, right greater than left. Findings probably due to acute pneumonia. There chronic changes in both lungs. There is no pneumothorax. IMPRESSION: Acute pneumonia. Reviewed, Interpreted and Dictated by Praneeth Bernal MD Transcribed by Tara Wagner Authenticated and . [facility]
--- NOTE | 2023-01-29 10:06 | EXP.CARD.PN ---
Subjective Subjective Date: 01/29/23 Time: 09:00 Principal diagnosis: Pericardial effusion Interval history: This is a 67-year-old female who was admitted for a pericardial effusion. She is status post pericardiocentesis. She had 160 mL of blood-tinged fluid drained from the pericardium during her pericardiocentesis. The patient has a pericardial drain left in place to gravity. Following insertion she has had an additional 705 mL drained from her pericardium. Through the night last night the patient did go into atrial fibrillation with RVR. At that time the patient had chest pain and pressure. She was treated with a dose of metoprolol and her heart rate did improve slightly. She was also significantly short of breath and is now on BiPAP. This morning she states that she feels much better. She currently denies any chest pain or pressure. She denies any racing of the heart. She states that she is still short of breath but this is much improved since being on BiPAP. She denies any dizziness or syncope. She denies any lower extremity edema. She denies any fever, chills, nausea, vomiting or diarrhea. Exam Data for Last 24 hours Vital signs and Labs for Last 24 Hours: Temp Pulse Resp BP Pulse Ox O2 Del Method O2 Flow Rate 97.9 F 114 H 22 82/59 L 93 L BiPAP 60 01/29/23 03:50 01/29/23 08:30 01/29/23 08:30 01/29/23 08:30 01/29/23 08:30 01/29/23 09:00 01/29/23 09:00 FiO2 75 01/29/23 08:30 Laboratory Results - last 24 hr 01/27/23 13:30: Fluid Glucose 87, Fluid Total Protein 5.3, Fluid Albumin 3.4, Fluid LDH 319, Fluid Amylase 17 01/28/23 06:27: Hgb 12.6 D 01/28/23 10:50: Chlamy pneumoniae PCR TNP, Adenovirus (PCR) Not detected, B. pertussis DNA (PCR) TNP, Coronavirus OC43 (PCR) Not detected, Coronavirus HKU1 (PCR) Not detected, Coronavirus 229E (PCR) Not detected, SARS-CoV-2 (PCR) Not detected, Coronavirus NL63 (PCR) Not detected, Human Metapneumovir PCR Not detected, Influenza A (H1) PCR Not detected, Influ A (H1N1/09) PCR Not detected, Influenza A (H3) PCR Not detected, Influenza Type A (PCR) Not detected, Influenza Type B (PCR) Not detected, M. pneumoniae (PCR) TNP, Parainfluenza 1 (PCR) Not detected, Parainfluenza 2 (PCR) Not detected, Parainfluenza 3 (PCR) Not detected, Parainfluenza 4 (PCR) Not detected, RSV (PCR) Not detected, Entero/Rhino (PCR) Not detected 01/29/23 06:33: WBC 12.6 H, RBC 3.71 L, Hgb 11.1 L, Hct 34.3 L, MCV 92.4, MCH 30.0, MCHC 32.5, RDW 13.8, Plt Count 254, MPV 8.6, Neut % (Auto) 87.7 H, Lymph % (Auto) 5.5 L, [place] % (Auto) 5.8, Eos % (Auto) 0.7, Baso % (Auto) 0.2, Neut # (Auto) 11.1 H, Lymph # (Auto) 0.7, [place] # (Auto) 0.7, Eos # (Auto) 0.1, Baso # (Auto) 0.0, Total Counted 100, Neutrophils % (Manual) 89 H, Band Neutrophils % 1.0, Lymphocytes % (Manual) 8 L, Monocytes % (Manual) 2, Platelet Estimate Normal, RBC Morphology Normal, Hypochromasia 1+, Sodium 127 L, Potassium 4.6, Chloride 98, Carbon Dioxide 27, Anion Gap 6.6, BUN 7 D, Creatinine 0.40 L D, Estimated Creat Clear 41, Estimated GFR 160, Est GFR ( Amer) 193 D, Glucose 112 H, Calcium 7.2 L I & O for Last 24 hours: Intake & Output 01/26/23 01/27/23 01/28/23 01/29/23 23:59 23:59 23:59 23:59 Intake Total 0 / 120 2780 / 2960 180 / 180 Output Total 585 / 585 220 / 220 Balance 0 / 35 2195 / 2375 -40 / -40 Weight 96 lb 8 oz 102 lb 1.6 oz 102 lb 10.356 oz Narrative: EKG is atrial fibrillation/flutter with a rate of 155 bpm. There is old septal MO pattern and old inferior MO pattern. Limited echocardiogram shows: The left ventricle appears normal in size and function. There is a small sized pericardial effusion present. The largest pocket measures 0.8 cm in diastole. The effusion is mostly anterior, but there is also a small posterior pocket noted in this study. Compared to prior study from 1 day prior, the effusion overall appears similar or slightly improved. Constitutional Constitutional: thin and chronically ill appeari
--- NOTE | 2023-01-29 11:40 | PC.NURSE ---
RESP CARE NOTE: Pt c/o nasal bridge pain, and posterior neck pain due to bipap. Pt placed on 6 lpm nasal cannula, but SPO2 remained 85-86%. Pt then placed on vapotherm with settings adjusted to 35lpm/70% FIO2 to keep SPO2 at 92%. Will continue to monitor patient.
--- NOTE | 2023-01-29 13:55 | CT_ITS ---
FINAL REPORT TECHNIQUE: The patient was injected with IV contrast. Axial images were obtained through the chest in a PE protocol. 3-D reconstruction images were also performed. Individualized dose reduction techniques using automated exposure control or adjustment of the MA and/or KV according to patient's size were employed. CLINICAL HISTORY: rule out pe COMPARISON: 01/23/2023 FINDINGS: The mediastinal vasculature is well opacified. No pulmonary artery filling defects are identified to suggest PE. There is no aortic dissection. There is abnormal soft tissue in the right hilum similar to previous. There are new bilateral pleural effusions. There is bibasilar consolidation, right greater than left. There are patchy airspace infiltrates in the upper lobes which are new. There is a masslike density in the right lower lobe measuring 1.9 x 1.3 cm, stable. The liver parenchyma is homogeneous. The gallbladder wall appears to be enhancing to a greater degree as seen previously. IMPRESSION: No pulmonary embolus or dissection. Right lower lobe mass. Abnormal soft tissue around the right hilum, highly concerning for neoplasia. New bilateral pleural effusions with bibasilar consolidation. Patchy ground-glass infiltrates in the upper lobes. Enhancement to the gallbladder wall which may be due to acute or chronic cholecystitis. Reviewed, Interpreted and Dictated by Praneeth Bernla MD Transcribed by Tara Wagner Authenticated and [facility]
--- NOTE | 2023-01-29 16:00 | PC.NURSE ---
1545 Dr Prather rounded on pt at this time. notified md that pt refuses to properly wear vapotherm at this time. notified him that pt has had CT with PE protocol, was transported to rad by this RN. asked if pt has had lasix at this time. pt has not received med at this time. current bp is 98/81. per Dr Prather proceed with lasix admin.
--- NOTE | 2023-01-29 16:06 | PC.NURSE ---
Pt off unit for ct with pe protocol at 1437 accompanied by this RN. returned to unit at 1501
--- NOTE | 2023-01-29 16:21 | PC.NURSE ---
RESP NOTE: Patient sats dropped to 88-89% increased vapo FIO2 to 80%. Patient sats returned to 90%.
--- NOTE | 2023-01-29 16:55 | EXP.PN ---
Subjective *Date: 01/29/23 *Time: 16:55 Interval history: Patient was seen and evaluated at the bedside. denies chest pain, nausea, vomiting, abdominal pain. has SOBl Exam Data for Last 24 hours Vital signs and Labs for Last 24 Hours: Temp Pulse Resp BP Pulse Ox O2 Del Method O2 Flow Rate 98.2 F 106 H 22 82/59 L 89 L Vapotherm 35 01/29/23 16:00 01/29/23 16:00 01/29/23 08:30 01/29/23 08:30 01/29/23 16:00 01/29/23 16:00 01/29/23 11:35 FiO2 75 01/29/23 08:30 Laboratory Results - last 24 hr 01/29/23 06:33: WBC 12.6 H, RBC 3.71 L, Hgb 11.1 L, Hct 34.3 L, MCV 92.4, MCH 30.0, MCHC 32.5, RDW 13.8, Plt Count 254, MPV 8.6, Neut % (Auto) 87.7 H, Lymph % (Auto) 5.5 L, [place] % (Auto) 5.8, Eos % (Auto) 0.7, Baso % (Auto) 0.2, Neut # (Auto) 11.1 H, Lymph # (Auto) 0.7, [place] # (Auto) 0.7, Eos # (Auto) 0.1, Baso # (Auto) 0.0, Total Counted 100, Neutrophils % (Manual) 89 H, Band Neutrophils % 1.0, Lymphocytes % (Manual) 8 L, Monocytes % (Manual) 2, Platelet Estimate Normal, RBC Morphology Normal, Hypochromasia 1+, Sodium 127 L, Potassium 4.6, Chloride 98, Carbon Dioxide 27, Anion Gap 6.6, BUN 7 D, Creatinine 0.40 L D, Estimated Creat Clear 41, Estimated GFR 160, Est GFR ( Amer) 193 D, Glucose 112 H, Calcium 7.2 L I & O for Last 24 hours: Intake & Output 01/26/23 01/27/23 01/28/23 01/29/23 23:59 23:59 23:59 23:59 Intake Total 0 / 120 2780 / 2960 550 / 550 Output Total 585 / 585 1420 / 1420 Balance 0 / 35 2195 / 2375 -870 / -870 Weight 43.772 kg 46.312 kg 46.56 kg Constitutional Constitutional: no acute distress Comments: has drain attached from chest *Routine HEENT Exam Head: Present normocephalic Eye: Present EOMI and PERRL ENT: Present mucous membranes moist *Routine Neck Exam Neck: Present supple; Absent lymphadenopathy *Routine Respiratory Exam Respiratory: Present CTA bilaterally *Routine Cardiovascular Exam Cardiovascular: Present RRR *Routine Abdominal Exam Abdominal: Present soft and normoactive bowel sounds; Absent tenderness *Routine Extremities Exam Extremities: Absent cyanosis, clubbing or edema *Routine Skin Exam Skin: Present warm; Absent rash *Routine Neurological Exam Neurological: Present alert and oriented X3 Assessment and Plan *Assessment and plan (1) NSCLC of left lung: Status: Chronic Category: Medical Code(s): C34.92 - Malignant neoplasm of unspecified part of left bronchus or lung (2) CAD (coronary atherosclerotic disease): Status: Acute Qualifiers: Coronary Disease-Associated Artery/Lesion type: [place] artery [place] vs. transplanted heart: [place] heart Associated angina: without angina Qualified Code(s): I25.10 - Atherosclerotic heart disease of [place] coronary artery without angina pectoris Category: Medical Code(s): I25.10 - Atherosclerotic heart disease of [place] coronary artery without angina pectoris (3) Hypertension: Status: Acute Qualifiers: Hypertension type: unspecified Qualified Code(s): I10 - Essential (primary) hypertension Category: Medical Code(s): I10 - Essential (primary) hypertension (4) Chest pain: Status: Acute Category: Medical Code(s): R07.9 - Chest pain, unspecified (5) Pericardial effusion: Status: Acute Category: Medical Code(s): I31.39 - Other pericardial effusion (noninflammatory) Plan Patient is a 67-year-old female who presents to the hospital from cardiology office due to concern of pericardial effusion. Patient has past medical history of CAD, lung cancer, tobacco use, hyperlipidemia and hypertension. Patient was noticed to have pericardial effusion, patient complained of chest pain, pressure to the left side of chest patient was noticed to have pericardial effusion and was sent to the hospital for further evaluation plan is for possible pericardiocentesis per cardiology Assessment Chest pain, shortness o
--- NOTE | 2023-01-29 18:42 | PC.NURSE ---
RESP NOTE: Patient sats were 88-89%. Gave breathing treatments. After treatments patient got up to the bedside commode sats dropped into lower 80's. Increased Vapo to 40L 100% achieved sats of 90-92%.
[2023-01-30] VITALS (19 sets, daily range): BP systolic 88–125; BP diastolic 43–79; PULSE 75–160; RESP 15–32; TEMP 36.4–37; O2SAT 90–99; BMI 19.8
--- NOTE | 2023-01-30 06:00 | CA_ITS ---
APPROVED REPORT EXAM: Limited 2D Echocardiogram Icebox Man: Azucena Brooks, RCS, RVS Ht: 5 ft 1 in Wt: 102lbs BSA: 1.42 BP: 82/59 mmHg Indications: RECHECK PERICARDIAL EFFUSION Other Information Study Quality: Fair Conclusion This is a limited TTE to evaluate for pericardial effusion. Limited windows were obtained. The left ventricle appears normal in size and global systolic function. There is no pericardial effusion visualized in this study. Of note, there is a new hypoechoic mass is noted in the subcostal views anterior to the right ventricle, most likely suggestive of new ascites. Compared to prior study from 1 day prior, the pericardial effusion is now no longer seen. The ascites is new. Electronically signed by : Mariajose Prather MD 02/01/2023 20:33:59
[2023-01-30 06:55] LABS: Chloride 91 mmol/L (98-107); Sodium 129 mmol/L (136-145)
[2023-01-30 06:58] LABS: Blood Urea Nitrogen 5 mg/dl (7-17); Calcium 8.1 mg/dl (8.4-10.2); Carbon Dioxide 33 mmol/L (22.0-30.0); Creatinine Clearance Estimated 42 mL/min (50-200); Estimated Glomerular Filt Rate 123 ml/min (>60); GFR (African American) 149 ML/MIN (>60); Glucose 113 mg/dl (74-100)
[2023-01-30 06:59] LABS: Basophils % 0.2 % (0.1-2.0); Eosinophils # 0.2 K/mm3 (0.0-0.4); Eosinophils % 1.2 % (0.1-12.0); Hemoglobin 11.8 g/dL (12.2-16.2); Lymphocytes # 0.6 K/mm3 (0.7-4.5); Lymphocytes % 4.5 % (10-50); Mean Corpuscular HGB Conc 31.9 g/dL (31.8-35.4); Mean Corpuscular Hemoglobin 29.3 pg (27.0-31.2); Mean Corpuscular Volume 91.9 fl (81-99); Mean Platelet Volume 8.2 fl (7.4-10.4); Monocytes # 0.8 K/mm3 (0.1-1.0); Monocytes % 6.2 % (1.7-9.3); Neutrophils # 11.7 K/mm3 (1.8-7.8); Platelet Count 347 K/mm3 (142-424); Red Blood Count 4.03 M/mm3 (4.20-5.40); Red Cell Distribution Width 13.8 % (11.5-17.5); White Blood Count 13.3 K/mm3 (4.8-10.8)
[2023-01-30 07:13] LABS: MANUAL DIFFERENTIAL MANUAL DIFFERENTIAL (MANUAL DIFF)
[2023-01-30 07:53] LABS: Lymphocytes % 5 % (10-50); Monocytes % 8 % (2-9); Neutrophils % 87 % (42-76); Total Cells Counted 100
[2023-01-30 07:54] LABS: Platelet Estimate Normal; RBC Morphology Normal
--- NOTE | 2023-01-30 09:30 | PC.NURSE ---
notified MD Perez that pt's HR jumped to 140-150's and is irregular, no new orders at this time
--- NOTE | 2023-01-30 09:38 | PC.NURSE ---
notified MD Perez that pt's HR is staying 140-150's and bp soft (94/52) so metoprolol may not be an option, MD Perez stated seeing 214 then will come to 216
--- NOTE | 2023-01-30 09:51 | ECG_ITS ---
APPROVED REPORT Exam: Resting ECG HR:136 bpm ECG Measurements Heart Rate 136 AXES QRSd 92 QRS -58 QT 286 T 68 QTc 366 Conclusion ATRIAL FIBRILLATION WITH RAPID VENTRICULAR RESPONSE INFERIOR MYOCARDIAL INFARCTION , PROBABLY OLD [40+ ms Q WAVE AND/OR ST/T ABNORMALITY IN II/aVF] ABNORMAL ECG UNCONFIRMED REPORT Electronically signed by : Mk Reagan MD 01/30/2023 16:29:09
--- NOTE | 2023-01-30 09:51 | PC.NURSE ---
notified HERACLIO Cobb that pt's HR is 140-150's and no distress or chest pain, HERACLIO instructed this RN to obtain EKG and [facility] ATTENDANT will call this RN back, notified RT that pt needs stat EKG
--- NOTE | 2023-01-30 09:52 | PC.NURSE ---
notified HERACLIO Cobb that pt's HR is 140-150's and irregular but no distress or chest pain, PRESSER MACHINE instructed this RN to obtain EKG and PRESSER MACHINE will call this RN back, notified RT that pt needs stat EKG
--- NOTE | 2023-01-30 09:53 | EXP.PULM.PN ---
Subjective *Date: 01/30/23 *Time: 12:08 Interval history: Patient denies any new respiratory complaints. Worsening ox requirements. Pulmonology Exam Inpatient Vital signs and Labs for Last 24 Hours: Temp Pulse Resp BP Pulse Ox O2 Del Method O2 Flow Rate 98.2 F 106 H 32 H 109/67 L 91 L Vapotherm 40 01/29/23 16:00 01/30/23 08:00 01/30/23 08:00 01/30/23 08:00 01/30/23 08:00 01/30/23 08:44 01/30/23 08:44 FiO2 75 01/30/23 08:00 Laboratory Results - last 24 hr 01/30/23 06:33: WBC 13.3 H, RBC 4.03 L, Hgb 11.8 L, Hct 37.0, MCV 91.9, MCH 29.3, MCHC 31.9, RDW 13.8, Plt Count 347 D, MPV 8.2, Neut % (Auto) 88.0 H, Lymph % (Auto) 4.5 L, [place] % (Auto) 6.2, Eos % (Auto) 1.2, Baso % (Auto) 0.2, Neut # (Auto) 11.7 H, Lymph # (Auto) 0.6 L, [place] # (Auto) 0.8, Eos # (Auto) 0.2, Baso # (Auto) 0.0, Total Counted 100, Neutrophils % (Manual) 87 H, Lymphocytes % (Manual) 5 L, Monocytes % (Manual) 8, Platelet Estimate Normal, RBC Morphology Normal, Sodium 129 L, Potassium 4.0, Chloride 91 L, Carbon Dioxide 33 H, Anion Gap 9.0, BUN 5 L D, Creatinine 0.50 L D, Estimated Creat Clear 42, Estimated GFR 123, Est GFR ( Amer) 149 D, Glucose 113 H, Calcium 8.1 L I & O for Labs for Last 24 Hours: Intake & Output 01/27/23 01/28/23 01/29/23 01/30/23 23:59 23:59 23:59 23:59 Intake Total 0 / 120 2780 / 2960 550 / 1010 1160 / 1160 Output Total 585 / 585 2620 / 2620 Balance 0 / 35 2195 / 2375 -2070 / -1610 1160 / 1160 Weight 96 lb 8 oz 102 lb 1.6 oz 102 lb 10.356 oz 105 lb 4.8 oz Constitutional: Present severe distress Head: Present normocephalic and atraumatic ENT: Present normal exam, normal oropharynx and mucous membranes moist Neck: Present normal inspection and full ROM Respiratory: Present respiratory distress, rhonchi, diminished air movement and able to speak in complete sentences; Absent wheezes Comment:: Pericardial drain in place. Decreased breath sounds right upper lung bal[place]. Cardiac: Present Irregularly Regular, S1/S2, Tachycardia and radial pulses present GI: Present soft and distention; Absent tenderness or guarding Rectal (female): Present deferred (female): Present deferred Skin: Present intact; Absent cyanosis or jaundice Neuro: Present alert, awake and oriented x 3 Extremities: Present normal inspection; Absent clubbing or cyanosis Psychiatric: Present normal affect and cooperative Assessment and Plan *Assessment and plan (1) Acute hypoxemic respiratory failure: Status: Acute Category: Medical Code(s): J96.01 - Acute respiratory failure with hypoxia (2) Primary lung cancer: Status: Acute Qualifiers: Laterality: right Qualified Code(s): C34.91 - Malignant neoplasm of unspecified part of right bronchus or lung Category: Medical Code(s): C34.90 - Malignant neoplasm of unspecified part of unspecified bronchus or lung (3) Pneumonia: Status: Resolved Qualifiers: Laterality: left Lung location: upper lobe of lung Pneumonia type: due to unspecified organism Qualified Code(s): J18.9 - Pneumonia, unspecified organism Category: Medical Code(s): J18.9 - Pneumonia, unspecified organism Plan Ms. Melo is a 67-year-old female with history of lung cancer in 2020 status post radiation without any chemotherapy recently CT showing worsening right hilar adenopathy conglomerate mass along with new nodules which are FGD avid on her PET scan presented to the hospital with concerns for pericardial effusion for admission from cardiology clinic. Patient denies any worsening cough and worsening productive phlegm. Denies any significant wheezing. Status post pericardiocentesis. CT PE 01/23 prior to this admission did not show any evidence of pulmonary embolism. Questionable airspace airspace disease in the left lung balderas not present on her CAT scan earlier from this month Initial examination auscultation clear breath sounds clear left lung field, d
--- NOTE | 2023-01-30 10:01 | EXP.CARD.PN ---
Subjective Subjective Date: 01/30/23 Time: 08:45 Principal diagnosis: Pericardial effusion Interval history: This is a 67-year-old female who is admitted for pericardial effusion. She is status post pericardiocentesis. The patient did have 160 mL of blood-tinged fluid drained from the pericardium during the pericardiocentesis. She has had an additional 705 mL drained from the pericardium since that time. Over the last 24 hours she has had very minimal pericardial fluid drained from the pericardium. And we will plan for pericardial drain removal today. The patient did go into atrial fibrillation with RVR during her hospital stay. She did convert back to sinus rhythm. This morning she states that she is feeling pretty good. She denies any chest pain or pressure. She denies any racing of the heart or palpitations. She states that her shortness of breath has significantly improved. She states that she does not really like the Vapotherm mask that she is wearing and cannot wait for that to be taken off. She denies any fever, chills, nausea, vomiting, diarrhea, PND or orthopnea. Exam Data for Last 24 hours Vital signs and Labs for Last 24 Hours: Temp Pulse Resp BP Pulse Ox O2 Del Method O2 Flow Rate 98.2 F 106 H 32 H 109/67 L 91 L Vapotherm 40 01/29/23 16:00 01/30/23 08:00 01/30/23 08:00 01/30/23 08:00 01/30/23 08:00 01/30/23 08:44 01/30/23 08:44 FiO2 75 01/30/23 08:00 Laboratory Results - last 24 hr 01/30/23 06:33: WBC 13.3 H, RBC 4.03 L, Hgb 11.8 L, Hct 37.0, MCV 91.9, MCH 29.3, MCHC 31.9, RDW 13.8, Plt Count 347 D, MPV 8.2, Neut % (Auto) 88.0 H, Lymph % (Auto) 4.5 L, [place] % (Auto) 6.2, Eos % (Auto) 1.2, Baso % (Auto) 0.2, Neut # (Auto) 11.7 H, Lymph # (Auto) 0.6 L, [place] # (Auto) 0.8, Eos # (Auto) 0.2, Baso # (Auto) 0.0, Total Counted 100, Neutrophils % (Manual) 87 H, Lymphocytes % (Manual) 5 L, Monocytes % (Manual) 8, Platelet Estimate Normal, RBC Morphology Normal, Sodium 129 L, Potassium 4.0, Chloride 91 L, Carbon Dioxide 33 H, Anion Gap 9.0, BUN 5 L D, Creatinine 0.50 L D, Estimated Creat Clear 42, Estimated GFR 123, Est GFR ( Amer) 149 D, Glucose 113 H, Calcium 8.1 L I & O for Last 24 hours: Intake & Output 01/27/23 01/28/23 01/29/23 01/30/23 23:59 23:59 23:59 23:59 Intake Total 0 / 120 2780 / 2960 550 / 1010 1160 / 1160 Output Total 585 / 585 2620 / 2620 Balance 0 / 35 2195 / 2375 -2070 / -1610 1160 / 1160 Weight 96 lb 8 oz 102 lb 1.6 oz 102 lb 10.356 oz 105 lb 4.8 oz Narrative: Limited echocardiogram shows: This is a limited TTE to evaluate for pericardial effusion. Limited windows were obtained. There is trivial, anterior pericardial effusion noted. No echo indications of tamponade. Compared to prior study from 1 day prior, the pericardial effusion is now further improved. Constitutional Constitutional: thin and chronically ill appearing *Routine HEENT Exam Head: Present normocephalic and atraumatic ENT: Present mucous membranes moist *Routine Neck Exam Neck: Present supple, full ROM and normal carotid upstroke; Absent JVD, carotid bruit or lymphadenopathy *Routine Respiratory Exam Respiratory: Present CTA bilaterally, normal respiratory effort, able to speak in complete sentences and symmetric chest movement *Routine Cardiovascular Exam Cardiovascular: Present RRR, Normal S1 and Normal S2; Absent murmur or gallop *Routine Abdominal Exam Abdominal: Present soft and normoactive bowel sounds; Absent tenderness, distended or organomegaly *Routine Extremities Exam Extremities: Present full ROM, pulses intact and normal capillary refill; Absent cyanosis, clubbing or edema *Routine Skin Exam Skin: Present intact and warm; Absent erythema *Routine Neurological Exam Neurological: Present alert, oriented X3 and CN II-XII intact; Absent sensory deficit or motor deficit Routine Psychiatric Exam Psychiatric: Present normal affect Progress Note: A&P Assessment and plan (1) Pericardial effusion:
--- NOTE | 2023-01-30 11:45 | PC.NURSE ---
MD Harris at bedside ordered 2mg morphine for drain removal, 2mg morphine given per IV and MD removed pericardial drain and covered with gauze and tegaderm
--- NOTE | 2023-01-30 12:31 | [facility].PROCNOTE ---
[facility] Procedure Note Date: 01/30/23 Time: 11:45 Procedure Note:: Procedure: Pericardial drain removal Indication: Improvement/resolution of pericardial effusion Performed by: Jorge Harris MD Procedure summary: The patient was given morphine 2 mg IV for pain control. Hemostats and a scalpel were used to snip the suture of the pericardial drain. The pericardial drain was then pulled from the chest wall/pericardium without any difficulty or complications. The patient tolerated this well with minimal discomfort. Complications: None
--- NOTE | 2023-01-30 13:27 | PC.NURSE ---
notified HERACLIO Cobb about pt's increased HR and hypotension, pt not in distress and does not have any chest pain, [employer] to contact MD Prather and get back to this RN
--- NOTE | 2023-01-30 13:34 | PC.NURSE ---
switched drip back to IV on right arm
--- NOTE | 2023-01-30 17:48 | EXP.PN ---
Subjective *Date: 01/30/23 *Time: 17:48 Interval history: patient was seen and evaluated at the bedside. denies chest pain, nausea, vomiting, abdominal pain. Patient does not have any complaints at this time. feels better overall Exam Data for Last 24 hours Vital signs and Labs for Last 24 Hours: Temp Pulse Resp BP Pulse Ox O2 Del Method O2 Flow Rate 98.2 F 107 H 15 109/43 L 92 L Vapotherm 40 01/30/23 16:00 01/30/23 14:02 01/30/23 14:00 01/30/23 14:00 01/30/23 14:00 01/30/23 15:00 01/30/23 15:00 FiO2 75 01/30/23 14:00 Laboratory Results - last 24 hr 01/30/23 06:33: WBC 13.3 H, RBC 4.03 L, Hgb 11.8 L, Hct 37.0, MCV 91.9, MCH 29.3, MCHC 31.9, RDW 13.8, Plt Count 347 D, MPV 8.2, Neut % (Auto) 88.0 H, Lymph % (Auto) 4.5 L, [place] % (Auto) 6.2, Eos % (Auto) 1.2, Baso % (Auto) 0.2, Neut # (Auto) 11.7 H, Lymph # (Auto) 0.6 L, [place] # (Auto) 0.8, Eos # (Auto) 0.2, Baso # (Auto) 0.0, Total Counted 100, Neutrophils % (Manual) 87 H, Lymphocytes % (Manual) 5 L, Monocytes % (Manual) 8, Platelet Estimate Normal, RBC Morphology Normal, Sodium 129 L, Potassium 4.0, Chloride 91 L, Carbon Dioxide 33 H, Anion Gap 9.0, BUN 5 L D, Creatinine 0.50 L D, Estimated Creat Clear 42, Estimated GFR 123, Est GFR ( Amer) 149 D, Glucose 113 H, Calcium 8.1 L I & O for Last 24 hours: Intake & Output 01/27/23 01/28/23 01/29/23 01/30/23 23:59 23:59 23:59 23:59 Intake Total 0 / 120 2780 / 2960 550 / 1010 1160 / 1160 Output Total 585 / 585 2620 / 2620 600 / 600 Balance 0 / 35 2195 / 2375 -2070 / -1610 560 / 560 Weight 43.772 kg 46.312 kg 46.56 kg 47.76 kg Microbiology Reports for the Last 24 Hours: Microbiology 01/27/23 Unknown Pericardial Fluid Gram Stain - Final Assessment and Plan *Assessment and plan (1) NSCLC of left lung: Status: Chronic Category: Medical Code(s): C34.92 - Malignant neoplasm of unspecified part of left bronchus or lung (2) CAD (coronary atherosclerotic disease): Status: Acute Qualifiers: Coronary Disease-Associated Artery/Lesion type: [place] artery [place] vs. transplanted heart: [place] heart Associated angina: without angina Qualified Code(s): I25.10 - Atherosclerotic heart disease of [place] coronary artery without angina pectoris Category: Medical Code(s): I25.10 - Atherosclerotic heart disease of [place] coronary artery without angina pectoris (3) Hypertension: Status: Acute Qualifiers: Hypertension type: unspecified Qualified Code(s): I10 - Essential (primary) hypertension Category: Medical Code(s): I10 - Essential (primary) hypertension (4) Chest pain: Status: Acute Category: Medical Code(s): R07.9 - Chest pain, unspecified (5) Pericardial effusion: Status: Acute Category: Medical Code(s): I31.39 - Other pericardial effusion (noninflammatory) Plan Patient is a 67-year-old female who presents to the hospital from cardiology office due to concern of pericardial effusion. Patient has past medical history of CAD, lung cancer, tobacco use, hyperlipidemia and hypertension. Patient was noticed to have pericardial effusion, patient complained of chest pain, pressure to the left side of chest patient was noticed to have pericardial effusion and was sent to the hospital for further evaluation plan is for possible pericardiocentesis per cardiology Assessment Chest pain, shortness of breath Pericardial effusion Acute hypoxic respiratory failure CAD A. fibrillation History of lung cancer Hypertension Hyperlipidemia Plan s/p pericardiocentesis, drain removed today fluid studies sent - pending Continue oxygen supplementation to maintain O2 saturation goal 90% and above, currently on high flow nasal cannula 40L Continue Zosyn diuresis - continue AP/AC per cardiology pulmonary consulted in the setting of lung cancer, started on levofloxacin - continue Resume ho
[2023-01-31] VITALS (21 sets, daily range): BP systolic 100–146; BP diastolic 51–82; PULSE 90–120; RESP 10–22; TEMP 36.5–36.8; O2SAT 89–98; BMI 20.3
[2023-01-31 07:29] LABS: Chloride 94 mmol/L (98-107); Sodium 132 mmol/L (136-145)
[2023-01-31 07:30] LABS: Potassium 3.8 mmoL/L (3.5-5.1)
[2023-01-31 07:32] LABS: Blood Urea Nitrogen 6 mg/dl (7-17); Creatinine Clearance Estimated 43 mL/min (50-200); Estimated Glomerular Filt Rate 160 ml/min (>60); GFR (African American) 193 ML/MIN (>60)
[2023-01-31 07:33] LABS: Anion Gap 5.8 mEq/L (5-15); Calcium 8.3 mg/dl (8.4-10.2); Carbon Dioxide 36 mmol/L (22.0-30.0); Glucose 119 mg/dl (74-100)
[2023-01-31 07:35] LABS: Basophils % 0.2 % (0.1-2.0); Eosinophils # 0.2 K/mm3 (0.0-0.4); Eosinophils % 1.6 % (0.1-12.0); Hemoglobin 12.2 g/dL (12.2-16.2); Lymphocytes # 0.6 K/mm3 (0.7-4.5); Lymphocytes % 5.7 % (10-50); Mean Corpuscular HGB Conc 32.1 g/dL (31.8-35.4); Mean Corpuscular Hemoglobin 29.2 pg (27.0-31.2); Mean Platelet Volume 8.2 fl (7.4-10.4); Monocytes # 0.8 K/mm3 (0.1-1.0); Monocytes % 7.5 % (1.7-9.3); Neutrophils # 9.1 K/mm3 (1.8-7.8); Platelet Count 374 K/mm3 (142-424); Red Blood Count 4.17 M/mm3 (4.20-5.40); Red Cell Distribution Width 13.8 % (11.5-17.5); White Blood Count 10.7 K/mm3 (4.8-10.8)
[2023-01-31 07:37] LABS: MANUAL DIFFERENTIAL MANUAL DIFFERENTIAL (MANUAL DIFF)
[2023-01-31 08:55] LABS: Eosinophils % 1 % (0-3); Lymphocytes % 3 % (10-50); Monocytes % 6 % (2-9); Neutrophils % 90 % (42-76); Total Cells Counted 100
[2023-01-31 08:56] LABS: Platelet Estimate Normal; RBC Morphology Normal
--- NOTE | 2023-01-31 16:38 | EXP.PN ---
Subjective *Date: 01/31/23 *Time: 16:38 Interval history: patient was seen and evaluated at the bedside. denies chest pain, nausea, vomiting, abdominal pain. Patient does not have any complaints at this time. feels better overall Exam Data for Last 24 hours Vital signs and Labs for Last 24 Hours: Temp Pulse Resp BP Pulse Ox O2 Del Method O2 Flow Rate 97.7 F 97 H 22 122/70 95 Vapotherm 40 01/31/23 16:00 01/31/23 16:00 01/31/23 14:00 01/31/23 14:00 01/31/23 14:00 01/31/23 14:00 01/31/23 14:00 FiO2 55 01/31/23 14:00 Laboratory Results - last 24 hr 01/31/23 07:00: WBC 10.7, RBC 4.17 L, Hgb 12.2, Hct 38.0, MCV 91.0, MCH 29.2, MCHC 32.1, RDW 13.8, Plt Count 374, MPV 8.2, Neut % (Auto) 85.0 H, Lymph % (Auto) 5.7 L, [place] % (Auto) 7.5, Eos % (Auto) 1.6, Baso % (Auto) 0.2, Neut # (Auto) 9.1 H, Lymph # (Auto) 0.6 L, [place] # (Auto) 0.8, Eos # (Auto) 0.2, Baso # (Auto) 0.0, Total Counted 100, Neutrophils % (Manual) 90 H, Lymphocytes % (Manual) 3 L, Monocytes % (Manual) 6, Eosinophils % (Manual) 1, Platelet Estimate Normal, RBC Morphology Normal, Sodium 132 L, Potassium 3.8, Chloride 94 L, Carbon Dioxide 36 H, Anion Gap 5.8, BUN 6 L, Creatinine 0.40 L, Estimated Creat Clear 43, Estimated GFR 160, Est GFR ( Amer) 193 D, Glucose 119 H, Calcium 8.3 L I & O for Last 24 hours: Intake & Output 01/28/23 01/29/23 01/30/23 01/31/23 23:59 23:59 23:59 23:59 Intake Total 2780 / 2960 550 / 1010 1500 / 1840 810 / 810 Output Total 585 / 585 2620 / 2620 600 / 600 0 / 0 Balance 2195 / 2375 -2070 / -1610 900 / 1240 810 / 810 Weight 46.312 kg 46.56 kg 47.76 kg 48.852 kg Microbiology Reports for the Last 24 Hours: Microbiology 01/27/23 Unknown Pericardial Fluid Gram Stain - Final 01/27/23 Unknown Pericardial Fluid Body Fluid Culture - Preliminary Constitutional Constitutional: no acute distress Comments: has drain attached from chest *Routine HEENT Exam Head: Present normocephalic Eye: Present EOMI and PERRL ENT: Present mucous membranes moist *Routine Neck Exam Neck: Present supple; Absent lymphadenopathy *Routine Respiratory Exam Respiratory: Present CTA bilaterally *Routine Cardiovascular Exam Cardiovascular: Present RRR *Routine Abdominal Exam Abdominal: Present soft and normoactive bowel sounds; Absent tenderness *Routine Extremities Exam Extremities: Absent cyanosis, clubbing or edema *Routine Skin Exam Skin: Present warm; Absent rash *Routine Neurological Exam Neurological: Present alert and oriented X3 Assessment and Plan *Assessment and plan (1) NSCLC of left lung: Status: Chronic Category: Medical Code(s): C34.92 - Malignant neoplasm of unspecified part of left bronchus or lung (2) CAD (coronary atherosclerotic disease): Status: Acute Qualifiers: Coronary Disease-Associated Artery/Lesion type: [place] artery [place] vs. transplanted heart: [place] heart Associated angina: without angina Qualified Code(s): I25.10 - Atherosclerotic heart disease of [place] coronary artery without angina pectoris Category: Medical Code(s): I25.10 - Atherosclerotic heart disease of [place] coronary artery without angina pectoris (3) Hypertension: Status: Acute Qualifiers: Hypertension type: unspecified Qualified Code(s): I10 - Essential (primary) hypertension Category: Medical Code(s): I10 - Essential (primary) hypertension (4) Chest pain: Status: Acute Category: Medical Code(s): R07.9 - Chest pain, unspecified (5) Pericardial effusion: Status: Acute Category: Medical Code(s): I31.39 - Other pericardial effusion (noninflammatory) Plan Patient is a 67-year-old female who presents to the hospital from cardiology office due to concern of pericardial effusion. Patient has past medical history of CAD, lung cancer, tobacco use, hyperlipidemia and hypertension. Patient was noticed to
--- NOTE | 2023-01-31 17:20 | PC.NURSE ---
Pt remains on Vapotherm @ 40L 55%. Has c/o her nose irritating her. Some bleeding noted from irritation. She has ambulated to BR and tolerated fair. Has been up to her chair this shift. Call light within reach.
--- NOTE | 2023-01-31 21:39 | PC.NURSE ---
Addendum entered by Lynn Mandujano RN 02/01/23 06:32: 0620 BiPAP decreased to 60% per RT Addendum entered by Lynn Mandujano RN 01/31/23 23:08: 2245 patient placed on BiPAP 80% 10 IPAP / 4 EPAP Addendum entered by Lynn Mandujano RN 01/31/23 22:39: o2 decreased to 79% - RT added nonrebreather with 15L and 100%, plus vapo at 40L/65% educated patient bipap would be the next intervention, patient was agreeable. Original Note: o2 sat roughly 80%-82% on vapotherm 40L/55%, vapotherm increased 40L/65% at 92%
[2023-02-01] VITALS (23 sets, daily range): BP systolic 93–157; BP diastolic 50–80; PULSE 90–119; RESP 15–34; TEMP 36.1–36.9; O2SAT 92–100
--- NOTE | 2023-02-01 11:01 | EXP.PHA.PN ---
Subjective *Date: 02/01/23 *Time: 11:01 Medical Exam Vital signs and Labs for Last 24 Hours: Vital Signs Temp Pulse Pulse Resp BP Pulse Ox O2 Del Method 02/01/23 08:00 100 H 02/01/23 09:14 107 H 02/01/23 08:51 BiPAP 02/01/23 08:00 96.9 F L 93 H 15 108/56 L 97 BiPAP 02/01/23 06:33 BiPAP 02/01/23 06:24 91 H 02/01/23 06:24 91 H 02/01/23 06:24 100 BiPAP 02/01/23 06:22 02/01/23 04:00 90 02/01/23 00:00 100 H 02/01/23 04:00 98.0 F 02/01/23 06:00 94 H 21 108/61 L 99 BiPAP 02/01/23 04:36 BiPAP 02/01/23 04:00 100 BiPAP 02/01/23 04:00 90 15 94/50 L 100 BiPAP 02/01/23 03:00 BiPAP 02/01/23 01:00 BiPAP 02/01/23 02:00 91 H 16 94/53 L 100 BiPAP 02/01/23 00:29 97.9 F 01/31/23 20:00 100 H 01/31/23 23:39 BiPAP 01/31/23 23:38 100 H 01/31/23 23:37 101 H 01/31/23 22:00 96 H 12 105/63 L 89 L Vapotherm 02/01/23 00:00 97 H 16 147/79 H 100 BiPAP 01/31/23 23:00 BiPAP 01/31/23 22:57 BiPAP 01/31/23 21:00 Vapotherm 01/31/23 20:00 100 H 10 L 142/80 H 97 Nasal Cannula 01/31/23 20:00 97.9 F 01/31/23 18:52 Vapotherm 01/31/23 18:30 107 H 01/31/23 18:30 110 H 01/31/23 18:30 97 Vapotherm 01/31/23 18:00 113 H 19 140/79 97 Vapotherm 01/31/23 16:00 98 Vapotherm 01/31/23 17:00 Vapotherm 01/31/23 16:00 109 H 22 137/77 97 Vapotherm 01/31/23 15:00 Vapotherm 01/31/23 16:00 97 H 01/31/23 16:00 97.7 F 01/31/23 12:00 108 H 01/31/23 14:00 97 H 22 122/70 95 Vapotherm 01/31/23 12:00 103 H 18 146/72 H 97 Vapotherm 01/31/23 13:00 Vapotherm 01/31/23 11:54 98.2 F 01/31/23 11:07 97 H 01/31/23 11:07 94 H 01/31/23 11:07 92 L Vapotherm O2 Flow Rate FiO2 02/01/23 08:00 02/01/23 09:14 02/01/23 08:51 02/01/23 08:00 02/01/23 06:33 02/01/23 06:24 02/01/23 06:24 02/01/23 06:24 80 02/01/23 06:22 80 02/01/23 04:00 02/01/23 00:00 02/01/23 04:00 02/01/23 06:00 60 02/01/23 04:36 02/01/23 04:00 80 02/01/23 04:00 80 02/01/23 03:00 02/01/23 01:00 02/01/23 02:00 80 02/01/23 00:29 01/31/23 20:00 01/31/23 23:39 75 01/31/23 23:38 01/31/23 23:37 01/31/23 22:00 40 65 02/01/23 00:00 80 01/31/23 23:00 30 01/31/23 22:57 80 01/31/23 21:00 40 01/31/23 20:00 1 01/31/23 20:00 01/31/23 18:52 40 01/31/23 18:30 01/31/23 18:30 01/31/23 18:30 40 55 01/31/23 18:00 40 55 01/31/23 16:00 40 55 01/31/23 17:00 40 01/31/23 16:00 40 55 01/31/23 15:00 40 01/31/23 16:00 01/31/23 16:00 01/31/23 12:00 01/31/23 14:00 40 55 01/31/23 12:00 40 55 01/31/23 13:00 40 01/31/23 11:54 01/31/23 11:07 01/31/23 11:07 01/31/23 11:07 40 60 Intake and Output 01/31/23 02/01/23 02/01/23 23:59 07:59 15:59 Intake Total 600 / 1410 0 / 0 Output Total 0 / 0 Balance 600 / 1410 0 / 0 Intake: Intake, Oral Amount 270 / 980 0 / 0 Intake, Other Amount / 30 Intake, Total IV Amount 300 / 400 Piperacillin/Tazo 4.5 gm In 0.9 300 / 400 % Sodium Chloride 100 ml @ 200 mls/hr IV Q6H [facility] Rx#:[id number] Output: Output, Urine Amount 0 / 0 Other: Intake, Other Source Saline Solution Number of Unmeasured Voids 1 Number of Bowel Movements 1 Weight 48.217 kg Patient Weight 02/01/23 23:59 Weight 48.217 kg I & O for Labs for Last 24 Hours: Intake & Output 01/29/23 01/30/23 01/31/23 02/01/23 23:59 23:59 23:59 23:59 Intake Total 550 / 1010 1500 / 1840 1410 / 1410 0 / 0 Output Total 2620 / 2620 600 / 600 0 / 0 Balance -2070 / -1610 900 / 1240 1410 / 1410 0 / 0 Weight 46.56 kg 47.76 kg 48.852 kg 48.217 kg Microbiology Reports f
--- NOTE | 2023-02-01 16:02 | EXP.PN ---
Subjective *Date: 02/01/23 *Time: 16:02 Interval history: patient was seen and evaluated at the bedside. denies chest pain, shortness of breath, nausea, vomiting, abdominal pain. Patient does not have any complaints at this time. feels better overall Exam Data for Last 24 hours Vital signs and Labs for Last 24 Hours: Temp Pulse Resp BP Pulse Ox O2 Del Method O2 Flow Rate 98.5 F 112 H 24 157/73 H 96 Vapotherm 35 02/01/23 11:38 02/01/23 12:00 02/01/23 12:00 02/01/23 12:00 02/01/23 12:00 02/01/23 12:54 02/01/23 12:54 FiO2 55 02/01/23 12:00 I & O for Last 24 hours: Intake & Output 01/29/23 01/30/23 01/31/23 02/01/23 23:59 23:59 23:59 23:59 Intake Total 550 / 1010 1500 / 1840 1410 / 1410 200 / 200 Output Total 2620 / 2620 600 / 600 0 / 0 0 / 0 Balance -2070 / -1610 900 / 1240 1410 / 1410 200 / 200 Weight 46.56 kg 47.76 kg 48.852 kg 48.217 kg Constitutional Constitutional: no acute distress Comments: in on Vapotherm *Routine HEENT Exam Head: Present normocephalic Eye: Present EOMI and PERRL ENT: Present mucous membranes moist *Routine Neck Exam Neck: Present supple; Absent lymphadenopathy *Routine Respiratory Exam Respiratory: Present diminished air movement Comments: is on vapotherm *Routine Cardiovascular Exam Cardiovascular: Present RRR *Routine Abdominal Exam Abdominal: Present soft and normoactive bowel sounds; Absent tenderness *Routine Extremities Exam Extremities: Absent cyanosis, clubbing or edema *Routine Skin Exam Skin: Present warm; Absent rash *Routine Neurological Exam Neurological: Present alert and oriented X3 Assessment and Plan *Assessment and plan (1) NSCLC of left lung: Status: Chronic Category: Medical Code(s): C34.92 - Malignant neoplasm of unspecified part of left bronchus or lung (2) CAD (coronary atherosclerotic disease): Status: Acute Qualifiers: Coronary Disease-Associated Artery/Lesion type: [place] artery [place] vs. transplanted heart: [place] heart Associated angina: without angina Qualified Code(s): I25.10 - Atherosclerotic heart disease of [place] coronary artery without angina pectoris Category: Medical Code(s): I25.10 - Atherosclerotic heart disease of [place] coronary artery without angina pectoris (3) Hypertension: Status: Acute Qualifiers: Hypertension type: unspecified Qualified Code(s): I10 - Essential (primary) hypertension Category: Medical Code(s): I10 - Essential (primary) hypertension (4) Chest pain: Status: Acute Category: Medical Code(s): R07.9 - Chest pain, unspecified (5) Pericardial effusion: Status: Acute Category: Medical Code(s): I31.39 - Other pericardial effusion (noninflammatory) Plan Patient is a 67-year-old female who presents to the hospital from cardiology office due to concern of pericardial effusion. Patient has past medical history of CAD, lung cancer, tobacco use, hyperlipidemia and hypertension. Patient was noticed to have pericardial effusion, patient complained of chest pain, pressure to the left side of chest patient was noticed to have pericardial effusion and was sent to the hospital for further evaluation plan is for possible pericardiocentesis per cardiology Assessment Chest pain, shortness of breath Pericardial effusion Acute hypoxic respiratory failure CAD A. fibrillation History of lung cancer Hypertension Hyperlipidemia Plan s/p pericardiocentesis, drain removed pericardiac fluid studies- Gram Stain Final 01/30/23-1349 Gram Stain Result Final report Result 1 No white blood cells seen. Result 2 No organisms seen Continue oxygen supplementation to maintain O2 saturation goal 90% and above, Continue Zosyn diuresis - continue AP/AC per cardiology pulmonary consulted in the setting of l
[2023-02-02] VITALS (20 sets, daily range): BP systolic 103–166; BP diastolic 59–93; PULSE 80–114; RESP 16–31; TEMP 36.6–36.8; O2SAT 89–99
[2023-02-02 07:15] LABS: Basophils % 0.2 % (0.1-2.0); Eosinophils # 0.4 K/mm3 (0.0-0.4); Eosinophils % 5.4 % (0.1-12.0); Hematocrit 36.5 % (37.0-47.0); Hemoglobin 11.5 g/dL (12.2-16.2); Lymphocytes # 0.6 K/mm3 (0.7-4.5); Lymphocytes % 8.5 % (10-50); Mean Corpuscular HGB Conc 31.5 g/dL (31.8-35.4); Mean Corpuscular Hemoglobin 29.6 pg (27.0-31.2); Mean Platelet Volume 8.1 fl (7.4-10.4); Monocytes # 0.6 K/mm3 (0.1-1.0); Monocytes % 8.1 % (1.7-9.3); Neutrophils # 5.7 K/mm3 (1.8-7.8); Neutrophils % 77.9 % (37.0-80.0); Platelet Count 412 K/mm3 (142-424); Red Blood Count 3.88 M/mm3 (4.20-5.40); Red Cell Distribution Width 13.9 % (11.5-17.5); White Blood Count 7.3 K/mm3 (4.8-10.8)
[2023-02-02 07:41] LABS: Chloride 97 mmol/L (98-107)
[2023-02-02 07:42] LABS: Potassium 3.6 mmoL/L (3.5-5.1); Sodium 136 mmol/L (136-145)
[2023-02-02 07:44] LABS: Blood Urea Nitrogen 7 mg/dl (7-17); Creatinine Clearance Estimated 42 mL/min (50-200); Estimated Glomerular Filt Rate 160 ml/min (>60); GFR (African American) 193 ML/MIN (>60)
[2023-02-02 07:45] LABS: Anion Gap 4.6 mEq/L (5-15); Calcium 8.4 mg/dl (8.4-10.2); Carbon Dioxide 38 mmol/L (22.0-30.0); Glucose 102 mg/dl (74-100)
--- NOTE | 2023-02-02 08:21 | XR_ITS ---
FINAL REPORT TECHNIQUE: Single view chest CLINICAL HISTORY: dyspnea COMPARISON: 01/29/2023 FINDINGS: A single view of the chest was obtained. The heart and mediastinum are within normal limits. Left base opacities may represent atelectasis or pneumonia. There is no pneumothorax. Osseous structures are unremarkable. IMPRESSION: Left lung opacities which may represent atelectasis or pneumonia. Reviewed, Interpreted and Dictated by Vinnie Wagner III, MD Transcribed by Ilda Becerril Authenticated and [facility]
--- NOTE | 2023-02-02 10:17 | EXP.PULM.PN ---
Subjective *Date: 02/02/23 *Time: 11:38 Interval history: No acute respiratory events overnight. Patient admits continued improvement in her respiratory status. Complains of nosebleeds. Pulmonology Exam Inpatient Vital signs and Labs for Last 24 Hours: Temp Pulse Resp BP Pulse Ox O2 Del Method O2 Flow Rate 98.2 F 105 H 20 128/75 93 L Vapotherm 35 02/02/23 08:00 02/02/23 08:42 02/02/23 06:00 02/02/23 06:00 02/02/23 06:00 02/02/23 06:08 02/02/23 06:00 FiO2 55 02/02/23 06:00 Laboratory Results - last 24 hr 02/02/23 06:45: WBC 7.3 D, RBC 3.88 L, Hgb 11.5 L, Hct 36.5 L, MCV 94.0, MCH 29.6, MCHC 31.5 L, RDW 13.9, Plt Count 412, MPV 8.1, Neut % (Auto) 77.9, Lymph % (Auto) 8.5 L, [place] % (Auto) 8.1, Eos % (Auto) 5.4, Baso % (Auto) 0.2, Neut # (Auto) 5.7, Lymph # (Auto) 0.6 L, [place] # (Auto) 0.6, Eos # (Auto) 0.4, Baso # (Auto) 0.0, Sodium 136, Potassium 3.6, Chloride 97 L, Carbon Dioxide 38 H, Anion Gap 4.6 L, BUN 7, Creatinine 0.40 L, Estimated Creat Clear 42, Estimated GFR 160, Est GFR ( Amer) 193, Glucose 102 H, Calcium 8.4 I & O for Labs for Last 24 Hours: Intake & Output 01/30/23 01/31/23 02/01/23 02/02/23 23:59 23:59 23:59 23:59 Intake Total 1500 / 1840 1410 / 1410 760 / 1060 540 / 540 Output Total 600 / 600 0 / 0 175 / 375 200 / 200 Balance 900 / 1240 1410 / 1410 585 / 685 340 / 340 Weight 105 lb 4.684 oz 107 lb 11.2 oz 106 lb 4.8 oz 106 lb 6.4 oz Microbiology Reports for the Last 24 Hours: Microbiology 01/29/23 16:55 Blood Blood Culture - Preliminary 01/29/23 16:55 Blood Blood Culture - Preliminary Constitutional: Present severe distress Head: Present normocephalic and atraumatic ENT: Present normal exam, normal oropharynx and mucous membranes moist Neck: Present normal inspection and full ROM Respiratory: Present respiratory distress, rhonchi, diminished air movement and able to speak in complete sentences; Absent wheezes Comment:: Pericardial drain in place. Decreased breath sounds right upper lung balderas. Cardiac: Present Irregularly Regular, S1/S2, Tachycardia and radial pulses present GI: Present soft and distention; Absent tenderness or guarding Rectal (female): Present deferred (female): Present deferred Skin: Present intact; Absent cyanosis or jaundice Neuro: Present alert, awake and oriented x 3 Extremities: Present normal inspection; Absent clubbing or cyanosis Psychiatric: Present normal affect and cooperative Assessment and Plan *Assessment and plan (1) Acute hypoxemic respiratory failure: Status: Acute Category: Medical Code(s): J96.01 - Acute respiratory failure with hypoxia (2) Primary lung cancer: Status: Acute Qualifiers: Laterality: right Qualified Code(s): C34.91 - Malignant neoplasm of unspecified part of right bronchus or lung Category: Medical Code(s): C34.90 - Malignant neoplasm of unspecified part of unspecified bronchus or lung (3) Pneumonia: Status: Resolved Qualifiers: Laterality: left Lung location: upper lobe of lung Pneumonia type: due to unspecified organism Qualified Code(s): J18.9 - Pneumonia, unspecified organism Category: Medical Code(s): J18.9 - Pneumonia, unspecified organism Plan Ms. Melo is a 67-year-old female with history of lung cancer in 2020 status post radiation without any chemotherapy recently CT showing worsening right hilar adenopathy conglomerate mass along with new nodules which are FGD avid on her PET scan presented to the hospital with concerns for pericardial effusion for admission from cardiology clinic. Patient denies any worsening cough and worsening productive phlegm. Denies any significant wheezing. Status post pericardiocentesis. CT PE 01/23 prior to this admission did not show any evidence of pulmonary embolism. Questionable airspace airspace disease in the left lung balderas not present on her CAT scan earlier from this month
--- NOTE | 2023-02-02 10:27 | EXP.CARD.PN ---
Subjective Subjective Date: 02/02/23 Time: 08:00 Principal diagnosis: Pericardial effusion Interval history: Doing well this morning. Patient remains on Vapotherm with oxygen saturation 93%. Morning labs reviewed. Currently normal sinus rhythm with a rate in the 90s Exam Data for Last 24 hours Vital signs and Labs for Last 24 Hours: Temp Pulse Resp BP Pulse Ox O2 Del Method O2 Flow Rate 98.2 F 105 H 20 128/75 93 L Vapotherm 35 02/02/23 08:00 02/02/23 08:42 02/02/23 06:00 02/02/23 06:00 02/02/23 06:00 02/02/23 06:08 02/02/23 06:00 FiO2 55 02/02/23 06:00 Laboratory Results - last 24 hr 02/02/23 06:45: WBC 7.3 D, RBC 3.88 L, Hgb 11.5 L, Hct 36.5 L, MCV 94.0, MCH 29.6, MCHC 31.5 L, RDW 13.9, Plt Count 412, MPV 8.1, Neut % (Auto) 77.9, Lymph % (Auto) 8.5 L, [place] % (Auto) 8.1, Eos % (Auto) 5.4, Baso % (Auto) 0.2, Neut # (Auto) 5.7, Lymph # (Auto) 0.6 L, [place] # (Auto) 0.6, Eos # (Auto) 0.4, Baso # (Auto) 0.0, Sodium 136, Potassium 3.6, Chloride 97 L, Carbon Dioxide 38 H, Anion Gap 4.6 L, BUN 7, Creatinine 0.40 L, Estimated Creat Clear 42, Estimated GFR 160, Est GFR ( Amer) 193, Glucose 102 H, Calcium 8.4 I & O for Last 24 hours: Intake & Output 01/30/23 01/31/23 02/01/23 02/02/23 23:59 23:59 23:59 23:59 Intake Total 1500 / 1840 1410 / 1410 760 / 1060 540 / 540 Output Total 600 / 600 0 / 0 175 / 375 200 / 200 Balance 900 / 1240 1410 / 1410 585 / 685 340 / 340 Weight 105 lb 4.684 oz 107 lb 11.2 oz 106 lb 4.8 oz 106 lb 6.4 oz Microbiology Reports for the Last 24 Hours: Microbiology 01/29/23 16:55 Blood Blood Culture - Preliminary 01/29/23 16:55 Blood Blood Culture - Preliminary Constitutional Constitutional: no acute distress *Routine Respiratory Exam Respiratory: Present CTA bilaterally and symmetric chest movement *Routine Cardiovascular Exam Cardiovascular: Present RRR, Normal S1 and Normal S2 *Routine Abdominal Exam Abdominal: Present soft and normoactive bowel sounds; Absent tenderness *Routine Extremities Exam Extremities: Present full ROM and normal capillary refill; Absent edema *Routine Skin Exam Skin: Present intact, dry and warm Detailed Neck Exam: Thyroids Thyroid: Absent bruit Progress Note: A&P Assessment and plan (1) Acute hypoxemic respiratory failure: Status: Acute (2) Primary lung cancer: Status: Acute (3) Pneumonia: Status: Resolved Assessment and Plan Assessment and Plan for All Diagnoses:: 67-year-old white female with past medical hx of coronary artery disease, lung cancer, current tobacco use, hyperlipidemia and hypertension who was admitted for pericardiocentesis and drain. Patient underwent pericardial drain removal on 01/30/2023. Afterwards patient went into A-fib RVR and then converted back to normal sinus rhythm with 1 dose of IV metoprolol. Patient ultimately ended up going back in A-fib with rates in the 140s to 150s. Patient was loaded with IV digoxin and started on digoxin 0.125 mcg p.o. daily. This morning patient is resting comfortably and is in normal sinus rhythm with a rate of 100. Afib rvr Chadsvasc score of 4 -Currently normal sinus rhythm on digoxin 125 mcg p.o. daily -Currently on lovenox, will transition to OAC post [facility]. CAD -Medical management in 2014 and drug-eluting stent 2013 -Given patient's history of coronary artery disease and reduced LV function we will proceed with left heart catheterization tomorrow to further evaluate coronary artery disease. Discussed risk versus benefits with patient she is agreeable. HFrEF -Echocardiogram 03/12/2022 shows a mildly reduced LV systolic function of 45 to 50%, asynchronous septum, mildly dilated RV, biatrial dilation, mild MR mild TR, markedly elevated RVSP 55-60, moderate size anterior pericardial effusion is present which has since been drained. -Repeat limited on 01/30 shows no pericardial effusion but a new hypoechoic mass noted in the subcostal views anterior
--- NOTE | 2023-02-02 13:10 | US_ITS ---
PROCEDURE INFORMATION: Exam: US Abdomen Complete Exam date and time: 02/02/2023 3:57 PM Age: 67 years old Clinical indication: Other: Ascites; Additional info: Acites TECHNIQUE: Imaging protocol: Real-time ultrasound of the abdomen with image documentation. Complete exam. COMPARISON: CT ANGIO CHEST PE PROTOCOL 01/29/2023 2:46 PM FINDINGS: Liver: Small amount of free fluid in the right upper quadrant adjacent to the liver. Gallbladder: Normal. No gallstones. There is no gallbladder wall thickening. Biliary ducts: CBD is moderately dilated measuring 10 mm. Distal CBD not included in the field of view. Pancreas: Visualized pancreas is unremarkable. Right kidney: Normal. No mass. No hydronephrosis. Right kidney measures 11.6 cm. Left kidney: Normal. No mass. No hydronephrosis. Left kidney measures 10.3 cm. Spleen: Normal. No splenomegaly. Spleen measures 8.8 cm. Aorta: Atherosclerotic changes. No evident aneurysm. Inferior vena cava: Normal. IMPRESSION: 1. Mild ascites. 2. Dilated CBD suggesting possible occult distal CBD obstructing process. Advise clinical correlation and follow-up. Consider HIDA scan or MRCP.
--- NOTE | 2023-02-02 13:10 | CA_ITS ---
APPROVED REPORT EXAM: Limited 2D Echocardiogram Drag Seiner: Lucía Mccarthy RVT Ht: 5 ft 1 in Wt: 106lbs BSA: 1.44 BP: 124/68 mmHg Indications: F/U PERICARDIAL EFFUSION AND PERICARDIOCENTISIS 2D Dimensions Left Atrium 3.74 cm F: 2.7 - 3.8 M-Mode Dimensions RVDd 2.31 cm (0.9-2.6) LVDd 5.67 cm (3.5-5.7) Ao Diam 2.64 cm (2.0-3.7) LVDs 4.15 cm (3.5-5.7) IVSd 0.58 cm (0.6-1.1) PWd 0.47 cm (0.6-1.1) EF (Teich) 51.70% FS 26.80% EDV (Teich) 158.10 mL ESV (Teich) 76.40 mL Other Information Study Quality: Fair Conclusion This is a limited TTE to evaluate for pericardial effusion. Limited windows were obtained. Globally, the LV appears normal in size with mildly reduced LV systolic function. LVEF is 45-50%. There is a trivial pericardial effusion present anteriorly. Compared to prior study, the the effusion overall appears slightly increased. The previously visualized ascites is no longer seen in this study. Electronically signed by : Mariajose Prather MD 02/03/2023 14:24:40
--- NOTE | 2023-02-02 19:28 | EXP.ACUTE.PN ---
Subjective *Date: 02/02/23 *Time: 19:28 Interval history: Feeling somewhat this morning. Still requiring Vapotherm 35 L, 55% on morning rounds. Denies any chest pain, fever, nausea or vomiting overnight. Medical Exam Vital signs and Labs for Last 24 Hours: Vital Signs Temp Pulse Pulse Pulse Resp BP Pulse Ox 02/02/23 18:44 02/02/23 18:00 110 H 16 138/84 93 L 02/02/23 18:03 107 H 02/02/23 18:03 107 H 02/02/23 18:03 99 02/02/23 16:00 100 H 02/02/23 15:48 97.9 F 02/02/23 16:57 02/02/23 16:00 114 H 31 H 142/85 H 94 L 02/02/23 14:00 109 H 22 104/63 L 98 02/02/23 15:00 02/02/23 08:00 02/02/23 13:00 02/02/23 11:00 02/02/23 09:00 02/02/23 12:00 97 H 21 149/79 H 98 02/02/23 10:00 95 H 26 H 133/71 91 L 02/02/23 08:00 108 H 26 H 166/93 H 90 L 02/02/23 11:51 89 02/02/23 11:51 92 H 02/02/23 11:35 96 02/02/23 11:28 98.3 F 02/02/23 08:00 110 H 02/02/23 08:42 105 H 02/02/23 08:00 98.2 F 02/02/23 06:08 02/02/23 06:00 88 20 128/75 93 L 02/02/23 05:53 95 H 02/02/23 05:53 96 H 02/02/23 05:53 91 L 02/02/23 04:00 97.9 F 02/02/23 05:00 02/02/23 04:00 02/02/23 04:00 80 02/02/23 04:00 98 F 86 19 134/75 92 L 02/02/23 02:50 02/02/23 02:00 86 20 137/81 93 L 02/02/23 00:00 100 H 02/01/23 20:00 110 H 02/02/23 01:00 02/02/23 00:00 89 24 103/59 L 92 L 02/01/23 23:00 02/01/23 23:59 91 H 02/01/23 23:58 96 H 02/01/23 22:00 96 H 20 93/51 L 92 L 02/01/23 21:00 02/01/23 20:00 98.1 F 02/01/23 19:43 106 H 97 02/01/23 19:36 97.9 F 104 H 26 H 150/80 H 94 L O2 Del Method O2 Flow Rate FiO2 02/02/23 18:44 Venturi Mask 15 02/02/23 18:00 Venturi Mask 15 50 02/02/23 18:03 02/02/23 18:03 02/02/23 18:03 Nasal Cannula 6 02/02/23 16:00 02/02/23 15:48 02/02/23 16:57 Venturi Mask 02/02/23 16:00 Venturi Mask 50 02/02/23 14:00 Venturi Mask 50 02/02/23 15:00 Venturi Mask 02/02/23 08:00 Vapotherm 02/02/23 13:00 Venturi Mask 02/02/23 11:00 Vapotherm 35 02/02/23 09:00 Vapotherm 35 02/02/23 12:00 Venturi Mask 50 02/02/23 10:00 Vapotherm 35 55 02/02/23 08:00 Vapotherm 35 55 02/02/23 11:51 02/02/23 11:51 02/02/23 11:35 15 50 02/02/23 11:28 02/02/23 08:00 02/02/23 08:42 02/02/23 08:00 02/02/23 06:08 Vapotherm 02/02/23 06:00 Vapotherm 35 55 02/02/23 05:53 02/02/23 05:53 02/02/23 05:53 Vapotherm 35 55 02/02/23 04:00 02/02/23 05:00 Vapotherm 02/02/23 04:00 Vapotherm 35 55 02/02/23 04:00 02/02/23 04:00 Vapotherm 02/02/23 02:50 Vapotherm 02/02/23 02:00 Vapotherm 35 55 02/02/23 00:00 02/01/23 20:00 02/02/23 01:00 Vapotherm 02/02/23 00:00 Vapotherm 35 55 02/01/23 23:00 Vapotherm 02/01/23 23:59 02/01/23 23:58 02/01/23 22:00 Vapotherm 02/01/23 21:00 Vapotherm 02/01/23 20:00 02/01/23 19:43 Vapotherm 35 55 02/01/23 19:36 Vapotherm 35 55 Intake and Output 02/02/23 02/02/23 02/02/23 07:59 15:59 23:59 Intake Total 300 / 1520 760 / 1520 460 / 1520 Output Total 200 / 200 0 / 200 0 / 200 Balance 100 / 1320 760 / 1320 460 / 1320 Intake: Intake, Oral Amount 200 / 1220 660 / 1220 360 / 1220 Intake, Total IV Amount 100 / 300 100 / 300 100 / 300 Piperacillin/Tazo 4.5 gm In 0.9 100 / 300 100 / 300 100 / 300 % Sodium Chloride 100 ml @ 200 mls/hr IV Q6H [facility] Rx#:[id number] Output: Output, Urine Amount 200 / 200 0 / 200 0 / 200 Other: Number of Voids 2 Number of Unmeasured Voids 2 1 Number of Bowel Movements 1 Weight 48.262 kg Patient Weight 02/02/23 23:59 Weight 48.262
[2023-02-02 21:54] LABS: pH, Body Fluid 7.4
--- NOTE | 2023-02-02 22:01 | PC.NURSE ---
I have found patient to not be wearing her Venti mask. I educated her on the importance of wearing this so that she may get better quicker. Patient voiced her dislike of the venti mask, but does not want to wear her Vapotherm, so she has agreed to wear this mask as tolerated for her. O2 saturations remain >88%
--- NOTE | 2023-02-02 23:19 | PC.NURSE ---
Patient noted to not be wearing her Venti mask which has caused her oxygen saturations to maintain in lower 80's at this time. Educated patient on the importance of wearing her oxygen device, but she will wear it when she feels like it and right now is not that time. Patient is a/o x4 during this period of education. Care continued
[2023-02-03] VITALS (31 sets, daily range): BP systolic 109–176; BP diastolic 68–96; PULSE 80–130; RESP 16–32; TEMP 36.6–36.8; O2SAT 88–93
--- NOTE | 2023-02-03 | IR_ITS ---
APPROVED REPORT Patient Location: Inpatient PROCEDURES Right heart catheterization Selective coronary angiogram Informed consent was obtained prior to the procedure. COMPLICATIONS None Estimated Blood Loss: Less than 10 mls TECHNIQUE 1% lidocaine used anesthetize the right groin the right femoral artery and vein were accessed via the Salinger technique and a 4 [place] 7 [place] sheath were placed in the artery vein respectively. A JL 4 JR 4 catheter used to perform selective coronary angiography. Following diagnostic coronary angiography a [place]-Lv catheter was advanced under fluoroscopic and hemodynamic guidance and right heart catheterization was performed along with saturations in the right atrium and pulmonary artery. At the end the procedure the apparatus was removed the patient was transferred the postop putting a stable addition for sheath removal ANGIOGRAPHIC RESULTS The left main artery Normal The left anterior descending artery Is a large-caliber vessel and has proximal and mid vessel 10 to 20% stenoses. A large first diagonal artery is widely patent with a proximal 30% stenosis The circumflex artery Nondominant and has proximal 20 to 30% stenoses The right coronary artery Large dominant vessel and has a proximal mostly eccentric 70 to 80% in-stent restenotic lesion with the remaining vessel being widely patent. The posterior lateral branch has a proximal eccentric 30 to 40% stenosis. A 2 mm marginal vessel off the posterior lateral branch has a proximal 70% stenosis The [place] ventriculogram reveals Not performed The left ventricular end-diastolic pressure Not measured Right atrial pressure 5 mmHg Pulmonary artery pressure 35/15 mmHg Pulmonary artery occlusion pressure 5 mmHg Right atrial saturation 60% Pulmonary artery saturation 55% Aortic saturation 90% Hemoglobin 11.5 Cardiac output 3.4 L/min Cardiac index 2.3 IMPRESSION Severe in-stent restenosis within a proximal dominant right coronary artery Mild pulmonary hypertension Low left-sided filling pressures/LVEDP PLAN 1. Despite the severity of the right coronary artery lesion this represents in-stent intimal hyperplasia and is therefore a lower risk lesion for MT. It is reasonable to continue medical management for this lesion while at their more important biopsies and cell type is being evaluated 2. Further management for the primary inpatient cardiac team 3. In the future should patient experience worsening angina pectoris this lesion can easily be stented. At this time it is unlikely to be producing ischemia or contributing to LV dysfunction Electronically signed by : Jorge Harris MD 02/03/2023 14:05:02
[2023-02-03 05:51] LABS: Basophils % 0.4 % (0.1-2.0); Eosinophils # 0.3 K/mm3 (0.0-0.4); Eosinophils % 4.3 % (0.1-12.0); Hematocrit 35.8 % (37.0-47.0); Hemoglobin 11.7 g/dL (12.2-16.2); Lymphocytes # 0.8 K/mm3 (0.7-4.5); Lymphocytes % 10.2 % (10-50); Mean Corpuscular HGB Conc 32.6 g/dL (31.8-35.4); Mean Corpuscular Hemoglobin 29.5 pg (27.0-31.2); Mean Corpuscular Volume 90.5 fl (81-99); Mean Platelet Volume 8.6 fl (7.4-10.4); Monocytes # 0.6 K/mm3 (0.1-1.0); Monocytes % 7.2 % (1.7-9.3); Neutrophils # 6.2 K/mm3 (1.8-7.8); Neutrophils % 77.9 % (37.0-80.0); Platelet Count 484 K/mm3 (142-424); Red Blood Count 3.96 M/mm3 (4.20-5.40); White Blood Count 7.9 K/mm3 (4.8-10.8)
[2023-02-03 05:59] LABS: Chloride 97 mmol/L (98-107); Potassium 3.5 mmoL/L (3.5-5.1); Sodium 137 mmol/L (136-145)
[2023-02-03 06:01] LABS: Blood Urea Nitrogen 9 mg/dl (7-17); Creatinine Clearance Estimated 42 mL/min (50-200); Estimated Glomerular Filt Rate 123 ml/min (>60); GFR (African American) 149 ML/MIN (>60)
[2023-02-03 06:02] LABS: Anion Gap 5.5 mEq/L (5-15); Calcium 8.8 mg/dl (8.4-10.2); Carbon Dioxide 38 mmol/L (22.0-30.0); Glucose 92 mg/dl (74-100)
[2023-02-03 08:02] LABS: Potassium 3.5 mmoL/L (3.5-5.1)
[2023-02-03 08:05] LABS: Alanine Aminotransferase 28 U/L (12-78); Albumin Level 3.4 g/dl (3.5-5.0); Alkaline Phosphatase 113 U/L (38-126); Aspartate Amino Transferase 39 U/L (14-36); Bilirubin,Total 0.3 mg/dl (0.2-1.3); Creatinine Clearance Estimated 42 mL/min (50-200); Estimated Glomerular Filt Rate 123 ml/min (>60); GFR (African American) 149 ML/MIN (>60); Globulin 3.3 g/dL (1.3-3.2); Total Protein,Serum 6.7 g/dl (6.3-8.2)
[2023-02-03 08:07] LABS: Anion Gap 5.5 mEq/L (5-15); Blood Urea Nitrogen 9 mg/dl (7-17); Calcium 8.8 mg/dl (8.4-10.2); Carbon Dioxide 38 mmol/L (22.0-30.0); Chloride 97 mmol/L (98-107); Glucose 92 mg/dl (74-100); Sodium 137 mmol/L (136-145)
--- NOTE | 2023-02-03 09:44 | EXP.PULM.PN ---
Subjective *Date: 02/03/23 *Time: 13:59 Interval history: No acute respiratory events overnight. Improving oxygen clearance. Patient denies any new respiratory complaints. Pulmonology Exam Inpatient Vital signs and Labs for Last 24 Hours: Temp Pulse Resp BP Pulse Ox O2 Del Method O2 Flow Rate 98.1 F 113 H 17 134/81 88 L Venturi Mask 15 02/03/23 07:36 02/03/23 08:40 02/03/23 08:00 02/03/23 08:00 02/03/23 08:00 02/03/23 08:00 02/03/23 06:29 FiO2 50 02/03/23 06:29 Laboratory Results - last 24 hr 01/27/23 13:30: Fluid Tot Bilirubin TNP 01/27/23 : Fluid pH 7.4 02/03/23 05:16: WBC 7.9, RBC 3.96 L, Hgb 11.7 L, Hct 35.8 L, MCV 90.5, MCH 29.5, MCHC 32.6, RDW 14.0, Plt Count 484 H, MPV 8.6, Neut % (Auto) 77.9, Lymph % (Auto) 10.2, [place] % (Auto) 7.2, Eos % (Auto) 4.3, Baso % (Auto) 0.4, Neut # (Auto) 6.2, Lymph # (Auto) 0.8, [place] # (Auto) 0.6, Eos # (Auto) 0.3, Baso # (Auto) 0.0, Sodium 137 02/03/23 05:16: Sodium 137, Potassium 3.5 02/03/23 05:16: Potassium 3.5, Chloride 97 L 02/03/23 05:16: Chloride 97 L, Carbon Dioxide 38 H 02/03/23 05:16: Carbon Dioxide 38 H, Anion Gap 5.5 02/03/23 05:16: Anion Gap 5.5, BUN 9 D 02/03/23 05:16: BUN 9, Creatinine 0.50 L D 02/03/23 05:16: Creatinine 0.50 L, Estimated Creat Clear 42 02/03/23 05:16: Estimated Creat Clear 42, Estimated GFR 123 02/03/23 05:16: Estimated GFR 123, Est GFR ( Amer) 149 D 02/03/23 05:16: Est GFR ( Amer) 149, Glucose 92 02/03/23 05:16: Glucose 92, Calcium 8.8 02/03/23 05:16: Calcium 8.8, Total Bilirubin 0.3, AST 39 H, ALT 28, Alkaline Phosphatase 113, Total Protein 6.7, Albumin 3.4 L, Globulin 3.3 H, Albumin/Globulin Ratio 1.0 L I & O for Labs for Last 24 Hours: Intake & Output 01/31/23 02/01/23 02/02/23 02/03/23 23:59 23:59 23:59 23:59 Intake Total 1410 / 1410 760 / 1060 1520 / 1920 400 / 400 Output Total 0 / 0 175 / 375 425 / 650 475 / 475 Balance 1410 / 1410 585 / 685 1095 / 1270 -75 / -75 Weight 107 lb 11.2 oz 106 lb 4.8 oz 106 lb 6.4 oz 106 lb 6.392 oz Microbiology Reports for the Last 24 Hours: Microbiology 01/29/23 18:30 Sputum - Expectorated Sputum Gram Stain - Final 01/29/23 18:30 Sputum - Expectorated Sputum Sputum Culture - Final 01/29/23 16:55 Blood Blood Culture - Preliminary 01/29/23 16:55 Blood Blood Culture - Final 01/31/23 17:00 Nose - Nasal MRSA Culture - Final 01/27/23 Unknown Pericardial Fluid Gram Stain - Final 01/27/23 Unknown Pericardial Fluid Body Fluid Culture - Final Constitutional: Present severe distress Head: Present normocephalic and atraumatic ENT: Present normal exam, normal oropharynx and mucous membranes moist Neck: Present normal inspection and full ROM Respiratory: Present respiratory distress, rhonchi, diminished air movement and able to speak in complete sentences; Absent wheezes Comment:: Pericardial drain in place. Decreased breath sounds right upper lung balderas. Cardiac: Present Irregularly Regular, S1/S2, Tachycardia and radial pulses present GI: Present soft and distention; Absent tenderness or guarding Rectal (female): Present deferred (female): Present deferred Skin: Present intact; Absent cyanosis or jaundice Neuro: Present alert, awake and oriented x 3 Extremities: Present normal inspection; Absent clubbing or cyanosis Psychiatric: Present normal affect and cooperative Assessment and Plan *Assessment and plan (1) Acute hypoxemic respiratory failure: Status: Acute Category: Medical Code(s): J96.01 - Acute respiratory failure with hypoxia (2) Primary lung cancer: Status: Acute Qualifiers: Laterality: right Qualified Code(s): C34.91 - Malignant neoplasm of unspecified part of right bronchus or lung Category: Medical Code(s): C34.90 - Malignant neoplasm of unspecified part of unspecified bronchus or lung (3) Pneumonia: Status: Resolved Qualifiers: Laterality: left Lung location: up
--- NOTE | 2023-02-03 11:14 | CT_ITS ---
FINAL REPORT TECHNIQUE: Postcontrast axial images through the abdomen and pelvis were performed. This study was performed with techniques to keep radiation doses as low as reasonably achievable, (ALARA). Individualized dose reduction techniques using automated exposure control or adjustment of mA and/or kV according to the patient's size were employed. CLINICAL HISTORY: ascites, dilated cbd, hx of lung cancer FINDINGS: Abdomen: There is bibasilar atelectasis. There are ground-glass opacities in the left lung base, may represent pneumonia or edema. The liver is normal in size and attenuation. The gallbladder is distended with mild wall thickening. Note is made of vascular calcification. The spleen is unremarkable. The adrenals are normal. The pancreas is unremarkable. The kidneys enhance appropriately. The aorta is normal in caliber. No free fluid or adenopathy is identified. No findings for mechanical bowel obstruction are identified. Pelvis: The appendix is not identified. The patient is status post hysterectomy. There is sigmoid diverticulosis without evidence of diverticulitis. The urinary bladder is unremarkable. No free fluid, free air, abscess or adenopathy is identified. IMPRESSION: Ground-glass opacities left lung base, may represent pneumonia or edema. Distended gallbladder with mild wall thickening. Reviewed, Interpreted and Dictated by Vinnie Wagner III, MD Transcribed by Tara Wagner Authenticated and [facility]
--- NOTE | 2023-02-03 13:00 | EXP.CARD.PN ---
Subjective Subjective Date: 02/03/23 Time: 08:30 Principal diagnosis: Pericardial effusion Interval history: Continues to complain of mild shortness of breath. Patient remains sinus tach in the low 100s. Morning labs reviewed. Abdominal ultrasound reviewed. Exam Data for Last 24 hours Vital signs and Labs for Last 24 Hours: Temp Pulse Resp BP Pulse Ox O2 Del Method O2 Flow Rate 98.3 F 120 H 18 173/84 H 88 L Venturi Mask 15 02/03/23 11:53 02/03/23 12:00 02/03/23 12:00 02/03/23 12:00 02/03/23 12:00 02/03/23 12:00 02/03/23 12:00 FiO2 50 02/03/23 12:00 Laboratory Results - last 24 hr 01/27/23 13:30: Fluid Tot Bilirubin TNP 01/27/23 : Fluid pH 7.4 02/03/23 05:16: WBC 7.9, RBC 3.96 L, Hgb 11.7 L, Hct 35.8 L, MCV 90.5, MCH 29.5, MCHC 32.6, RDW 14.0, Plt Count 484 H, MPV 8.6, Neut % (Auto) 77.9, Lymph % (Auto) 10.2, [place] % (Auto) 7.2, Eos % (Auto) 4.3, Baso % (Auto) 0.4, Neut # (Auto) 6.2, Lymph # (Auto) 0.8, [place] # (Auto) 0.6, Eos # (Auto) 0.3, Baso # (Auto) 0.0, Sodium 137 02/03/23 05:16: Sodium 137, Potassium 3.5 02/03/23 05:16: Potassium 3.5, Chloride 97 L 02/03/23 05:16: Chloride 97 L, Carbon Dioxide 38 H 02/03/23 05:16: Carbon Dioxide 38 H, Anion Gap 5.5 02/03/23 05:16: Anion Gap 5.5, BUN 9 D 02/03/23 05:16: BUN 9, Creatinine 0.50 L D 02/03/23 05:16: Creatinine 0.50 L, Estimated Creat Clear 42 02/03/23 05:16: Estimated Creat Clear 42, Estimated GFR 123 02/03/23 05:16: Estimated GFR 123, Est GFR ( Amer) 149 D 02/03/23 05:16: Est GFR ( Amer) 149, Glucose 92 02/03/23 05:16: Glucose 92, Calcium 8.8 02/03/23 05:16: Calcium 8.8, Total Bilirubin 0.3, AST 39 H, ALT 28, Alkaline Phosphatase 113, Total Protein 6.7, Albumin 3.4 L, Globulin 3.3 H, Albumin/Globulin Ratio 1.0 L I & O for Last 24 hours: Intake & Output 01/31/23 02/01/23 02/02/23 02/03/23 23:59 23:59 23:59 23:59 Intake Total 1410 / 1410 760 / 1060 1520 / 1920 400 / 400 Output Total 0 / 0 175 / 375 425 / 650 475 / 475 Balance 1410 / 1410 585 / 685 1095 / 1270 -75 / -75 Weight 107 lb 11.2 oz 106 lb 4.8 oz 106 lb 6.4 oz 106 lb 6.392 oz Microbiology Reports for the Last 24 Hours: Microbiology 01/29/23 18:30 Sputum - Expectorated Sputum Gram Stain - Final 01/29/23 18:30 Sputum - Expectorated Sputum Sputum Culture - Final 01/29/23 16:55 Blood Blood Culture - Preliminary 01/29/23 16:55 Blood Blood Culture - Final 01/31/23 17:00 Nose - Nasal MRSA Culture - Final 01/27/23 Unknown Pericardial Fluid Gram Stain - Final 01/27/23 Unknown Pericardial Fluid Body Fluid Culture - Final Constitutional Constitutional: no acute distress *Routine Respiratory Exam Respiratory: Present wheezes and symmetric chest movement *Routine Cardiovascular Exam Cardiovascular: Present Normal S1, Normal S2 and tachycardia *Routine Abdominal Exam Abdominal: Present soft and normoactive bowel sounds; Absent tenderness *Routine Extremities Exam Extremities: Present full ROM and normal capillary refill; Absent edema *Routine Skin Exam Skin: Present intact, dry and warm Detailed Neck Exam: Thyroids Thyroid: Absent bruit Progress Note: A&P Assessment and plan (1) Acute hypoxemic respiratory failure: Status: Acute (2) Atrial fibrillation with RVR: Status: Acute (3) Pericardial effusion: Status: Acute (4) NSCLC of left lung: Status: Chronic (5) CAD (coronary atherosclerotic disease): Status: Acute (6) Hypertension: Status: Acute (7) Chest pain: Status: Acute Assessment and Plan Assessment and Plan for All Diagnoses:: 67-year-old white female with past medical hx of coronary artery disease, lung cancer, current tobacco use, hyperlipidemia and hypertension who was admitted for pericardiocentesis and drain. Patient underwent pericardial drain removal on 01/30/2023. Afterwards patient went into A-fib RVR and then converted back to normal sinus rhythm with 1 dose of IV metoprolol. Patient ul
--- NOTE | 2023-02-03 13:10 | PC.NURSE ---
pt to quality assurance lab technician via wheelchair
--- NOTE | 2023-02-03 13:30 | SUR.OPER ---
Dr Levin made aware that patient recieved lovenox dose this morning.
--- NOTE | 2023-02-03 14:26 | PC.NURSE ---
pt back from [facility] via stretcher
[2023-02-03 14:39] LABS: CATHL Arterial O2 SAT 55.6 % (90-100); CATHL Venous O2 SAT 60.7 % (75-80)
--- NOTE | 2023-02-03 18:27 | EXP.ACUTE.PN ---
Subjective *Date: 02/03/23 *Time: 18:27 Interval history: Continues to be short of breath. On Ventimask this morning at 50%. Denies any chest pain, nausea, vomiting. Afebrile. Cough nonproductive. Medical Exam Vital signs and Labs for Last 24 Hours: Vital Signs Temp Pulse Pulse Resp BP Pulse Ox O2 Del Method 02/03/23 17:00 Venturi Mask 02/03/23 16:00 100 H 02/03/23 12:00 120 H 02/03/23 15:15 98 H 25 H 132/76 90 L Venturi Mask 02/03/23 15:00 102 H 24 129/77 89 L Venturi Mask 02/03/23 14:45 106 H 26 H 176/96 H 90 L Venturi Mask 02/03/23 15:00 Venturi Mask 02/03/23 14:30 108 H 32 H 167/92 H 93 L Venturi Mask 02/03/23 13:00 Venturi Mask 02/03/23 13:05 106 H 02/03/23 12:00 120 H 18 173/84 H 88 L Venturi Mask 02/03/23 11:00 Venturi Mask 02/03/23 11:53 98.3 F 02/03/23 11:14 89 02/03/23 11:14 88 02/03/23 11:14 90 L Venturi Mask 02/03/23 08:00 88 L Venturi Mask 02/03/23 09:00 Venturi Mask 02/03/23 09:00 110 H 21 146/84 H 90 L Venturi Mask 02/03/23 08:00 130 H 02/03/23 08:40 113 H 02/03/23 08:00 119 H 17 134/81 88 L Venturi Mask 02/03/23 07:36 98.1 F 02/03/23 06:29 100 H 02/03/23 06:29 107 H 02/03/23 06:29 89 L Venturi Mask 02/03/23 06:04 Venturi Mask 02/03/23 06:00 101 H 20 132/79 90 L Venturi Mask 02/03/23 05:00 Venturi Mask 02/03/23 04:00 Venturi Mask 02/03/23 04:00 97 H 20 164/91 H 90 L Venturi Mask 02/03/23 04:00 101 H 02/03/23 03:00 Venturi Mask 02/03/23 02:00 106 H 20 165/90 H 91 L Venturi Mask 02/03/23 01:00 Venturi Mask 02/03/23 00:00 96 H 02/03/23 00:16 91 H 02/03/23 00:16 90 02/03/23 00:00 94 H 20 138/75 93 L Venturi Mask 02/02/23 23:00 Venturi Mask 02/02/23 20:00 95 H 02/02/23 22:00 105 H 22 132/78 89 L Venturi Mask 02/02/23 21:00 97 H 20 119/70 92 L Venturi Mask 02/02/23 20:54 Venturi Mask 02/02/23 20:00 Venturi Mask 02/02/23 20:00 97.8 F 106 H 25 H 124/78 93 L Venturi Mask 02/02/23 18:44 Venturi Mask O2 Flow Rate FiO2 02/03/23 17:00 15 02/03/23 16:00 02/03/23 12:00 02/03/23 15:15 15 50 02/03/23 15:00 15 50 02/03/23 14:45 15 50 02/03/23 15:00 15 02/03/23 14:30 15 50 02/03/23 13:00 15 02/03/23 13:05 02/03/23 12:00 15 50 02/03/23 11:00 15 02/03/23 11:53 02/03/23 11:14 02/03/23 11:14 02/03/23 11:14 15 50 02/03/23 08:00 15 50 02/03/23 09:00 15 02/03/23 09:00 15 50 02/03/23 08:00 02/03/23 08:40 02/03/23 08:00 02/03/23 07:36 02/03/23 06:29 02/03/23 06:29 02/03/23 06:29 15 50 02/03/23 06:04 02/03/23 06:00 02/03/23 05:00 02/03/23 04:00 02/03/23 04:00 02/03/23 04:00 02/03/23 03:00 02/03/23 02:00 02/03/23 01:00 02/03/23 00:00 02/03/23 00:16 02/03/23 00:16 02/03/23 00:00 02/02/23 23:00 02/02/23 20:00 02/02/23 22:00 02/02/23 21:00 02/02/23 20:54 02/02/23 20:00 50 02/02/23 20:00 50 02/02/23 18:44 15 Intake and Output 02/03/23 02/03/23 02/03/23 07:59 15:59 23:59 Intake Total 400 / 840 0 / 840 440 / 840 Output Total 475 / 1125 650 / 1125 Balance -75 / -285 -650 / -285 440 / -285 Intake: Intake, Oral Amount 300 / 540 0 / 540 240 / 540 Intake, Total IV Amount 100 / 300 200 / 300 Piperacillin/Tazo 4.5 gm In 0.9 100 / 300 200 / 300 % Sodium Chloride 100 ml @ 200 mls/hr IV Q6H [facility] Rx#:[id number] Output: Output, Urine Amount 475 / 1125 650 / 1125 Other: Number of Unmeasured Voids 1 1 Number of Bowel Movements 1 Weight 48.262 kg Patient Weight 02/03/23 23:59 Weight 48.262 kg Laboratory Results - last 24 hr 01/27/23 : Fluid pH 7.4 02/03/23 01:47: ABG O2 Sat (Measured
[2023-02-04] VITALS (16 sets, daily range): BP systolic 90–136; BP diastolic 56–81; PULSE 86–120; RESP 17–22; TEMP 36.6–36.9; O2SAT 88–98; BMI 20.1
--- NOTE | 2023-02-04 05:39 | PC.NURSE ---
Shift Summary: Pt AOx4, slept throughout most of shift. SpO2 maintained at goal >/= 88% on Venturi mask 15 L 50% FiO2 with intermittent coughing and SOB on exertion. Pt still able to AMB to bathroom and return to bed on Venturi mask. No acute events or incidents overnight. Fall precautions implemented, call light within reach.
[2023-02-04 06:23] LABS: Basophils % 0.4 % (0.1-2.0); Eosinophils # 0.3 K/mm3 (0.0-0.4); Eosinophils % 2.4 % (0.1-12.0); Hematocrit 39.8 % (37.0-47.0); Hemoglobin 12.7 g/dL (12.2-16.2); Lymphocytes # 0.8 K/mm3 (0.7-4.5); Lymphocytes % 6.7 % (10-50); Mean Corpuscular HGB Conc 31.8 g/dL (31.8-35.4); Mean Corpuscular Hemoglobin 28.8 pg (27.0-31.2); Mean Corpuscular Volume 90.6 fl (81-99); Mean Platelet Volume 8.7 fl (7.4-10.4); Monocytes # 0.6 K/mm3 (0.1-1.0); Monocytes % 5.4 % (1.7-9.3); Neutrophils # 9.6 K/mm3 (1.8-7.8); Neutrophils % 85.2 % (37.0-80.0); Platelet Count 536 K/mm3 (142-424); Red Cell Distribution Width 14.1 % (11.5-17.5); White Blood Count 11.2 K/mm3 (4.8-10.8)
[2023-02-04 06:27] LABS: MANUAL DIFFERENTIAL MANUAL DIFFERENTIAL (MANUAL DIFF)
[2023-02-04 06:43] LABS: Chloride 96 mmol/L (98-107); Potassium 3.8 mmoL/L (3.5-5.1); Sodium 138 mmol/L (136-145)
[2023-02-04 06:45] LABS: Alanine Aminotransferase 36 U/L (12-78); Aspartate Amino Transferase 51 U/L (14-36); Blood Urea Nitrogen 12 mg/dl (7-17); Creatinine Clearance Estimated 42 mL/min (50-200); Estimated Glomerular Filt Rate 123 ml/min (>60); GFR (African American) 149 ML/MIN (>60)
[2023-02-04 06:46] LABS: Albumin Level 3.7 g/dl (3.5-5.0); Albumin/Globulin Ratio 1.1 (1.1-1.8); Alkaline Phosphatase 114 U/L (38-126); Anion Gap 14.8 mEq/L (5-15); Bilirubin,Total 0.7 mg/dl (0.2-1.3); Calcium 8.8 mg/dl (8.4-10.2); Carbon Dioxide 31 mmol/L (22.0-30.0); Globulin 3.5 g/dL (1.3-3.2); Glucose 81 mg/dl (74-100); Total Protein,Serum 7.2 g/dl (6.3-8.2)
[2023-02-04 08:07] LABS: Eosinophils % 2 % (0-3); Lymphocytes % 8 % (10-50); Monocytes % 4 % (2-9); Neutrophils % 86 % (42-76); Platelet Estimate Moderate Increase; RBC Morphology Normal; Total Cells Counted 100
--- NOTE | 2023-02-04 09:40 | EXP.PULM.PN ---
Subjective *Date: 02/04/23 *Time: 10:38 Interval history: No acute respiratory events overnight. Patient continued to complain of cough. No other new respiratory complaints. Pulmonology Exam Inpatient Vital signs and Labs for Last 24 Hours: Temp Pulse Resp BP Pulse Ox O2 Del Method O2 Flow Rate 97.9 F 114 H 20 113/72 90 L Venturi Mask 15 02/04/23 07:57 02/04/23 09:04 02/04/23 07:57 02/04/23 04:00 02/04/23 07:57 02/04/23 07:57 02/04/23 06:49 FiO2 50 02/04/23 06:05 Laboratory Results - last 24 hr 02/03/23 01:47: ABG O2 Sat (Measured) 55.6 L, POC VBG O2 Sat ([place]) 60.7 L 02/04/23 05:17: WBC 11.2 H D, RBC 4.40, Hgb 12.7, Hct 39.8, MCV 90.6, MCH 28.8, MCHC 31.8, RDW 14.1, Plt Count 536 H, MPV 8.7, Neut % (Auto) 85.2 H, Lymph % (Auto) 6.7 L, [place] % (Auto) 5.4, Eos % (Auto) 2.4, Baso % (Auto) 0.4, Neut # (Auto) 9.6 H, Lymph # (Auto) 0.8, [place] # (Auto) 0.6, Eos # (Auto) 0.3, Baso # (Auto) 0.0, Total Counted 100, Neutrophils % (Manual) 86 H, Lymphocytes % (Manual) 8 L, Monocytes % (Manual) 4, Eosinophils % (Manual) 2, Platelet Estimate Moderate increase, RBC Morphology Normal, Sodium 138, Potassium 3.8, Chloride 96 L, Carbon Dioxide 31 H, Anion Gap 14.8, BUN 12 D, Creatinine 0.50 L, Estimated Creat Clear 42, Estimated GFR 123, Est GFR ( Amer) 149, Glucose 81, Calcium 8.8, Magnesium 2.0, Total Bilirubin 0.7, AST 51 H D, ALT 36 D, Alkaline Phosphatase 114, Total Protein 7.2, Albumin 3.7, Globulin 3.5 H, Albumin/Globulin Ratio 1.1 I & O for Labs for Last 24 Hours: Intake & Output 02/01/23 02/02/23 02/03/23 02/04/23 23:59 23:59 23:59 23:59 Intake Total 760 / 1060 1520 / 1920 840 / 1180 340 / 340 Output Total 175 / 375 425 / 650 2225 / 2225 0 / 0 Balance 585 / 685 1095 / 1270 -1385 / -1045 340 / 340 Weight 106 lb 4.8 oz 106 lb 6.4 oz 106 lb 6.392 oz 106 lb 11.612 oz Microbiology Reports for the Last 24 Hours: Microbiology 01/29/23 18:30 Sputum - Expectorated Sputum Gram Stain - Final 01/29/23 18:30 Sputum - Expectorated Sputum Sputum Culture - Final 01/29/23 16:55 Blood Blood Culture - Preliminary 01/29/23 16:55 Blood Blood Culture - Final Constitutional: Present severe distress Head: Present normocephalic and atraumatic ENT: Present normal exam, normal oropharynx and mucous membranes moist Neck: Present normal inspection and full ROM Respiratory: Present respiratory distress, rhonchi, diminished air movement and able to speak in complete sentences; Absent wheezes Comment:: Pericardial drain in place. Decreased breath sounds right upper lung balderas. Cardiac: Present Irregularly Regular, S1/S2, Tachycardia and radial pulses present GI: Present soft and distention; Absent tenderness or guarding Rectal (female): Present deferred (female): Present deferred Skin: Present intact; Absent cyanosis or jaundice Neuro: Present alert, awake and oriented x 3 Extremities: Present normal inspection; Absent clubbing or cyanosis Psychiatric: Present normal affect and cooperative Assessment and Plan *Assessment and plan (1) Acute hypoxemic respiratory failure: Status: Acute Category: Medical Code(s): J96.01 - Acute respiratory failure with hypoxia (2) Primary lung cancer: Status: Acute Qualifiers: Laterality: right Qualified Code(s): C34.91 - Malignant neoplasm of unspecified part of right bronchus or lung Category: Medical Code(s): C34.90 - Malignant neoplasm of unspecified part of unspecified bronchus or lung (3) Pneumonia: Status: Resolved Qualifiers: Laterality: left Lung location: upper lobe of lung Pneumonia type: due to unspecified organism Qualified Code(s): J18.9 - Pneumonia, unspecified organism Category: Medical Code(s): J18.9 - Pneumonia, unspecified organism Plan Ms. Melo is a 67-year-old female with history of lung cancer in 2020 status post radiation without any chemotherapy recently CT showing
--- NOTE | 2023-02-04 09:44 | PC.NURSE ---
Per Dr Weir, pt needs IS and flutter valve
--- NOTE | 2023-02-04 11:14 | PC.NURSE ---
Assisted patient to the bathroom w/1 assist. Suggested she sit up in the chair upon return and patient agreeable. Currently up to the chair w/legs reclined and wheels locked. Call light within reach.
--- NOTE | 2023-02-04 11:19 | EXP.CARD.PN ---
Subjective Subjective Date: 02/04/23 Time: 08:00 Principal diagnosis: Pericardial effusion Interval history: s/p Right and left heart cath. See reports below. Morning labs reviewed. Right and Left Heart Cath: ANGIOGRAPHIC RESULTS The left main artery Normal The left anterior descending artery Is a large-caliber vessel and has proximal and mid vessel 10 to 20% stenoses. A large first diagonal artery is widely patent with a proximal 30% stenosis The circumflex artery Nondominant and has proximal 20 to 30% stenoses The right coronary artery Large dominant vessel and has a proximal mostly eccentric 70 to 80% in-stent restenotic lesion with the remaining vessel being widely patent. The posterior lateral branch has a proximal eccentric 30 to 40% stenosis. A 2 mm marginal vessel off the posterior lateral branch has a proximal 70% stenosis The [place] ventriculogram reveals Not performed The left ventricular end-diastolic pressure Not measured Right atrial pressure 5 mmHg Pulmonary artery pressure 35/15 mmHg Pulmonary artery occlusion pressure 5 mmHg Right atrial saturation 60% Pulmonary artery saturation 55% Aortic saturation 90% Hemoglobin 11.5 Cardiac output 3.4 L/min Cardiac index 2.3 IMPRESSION Severe in-stent restenosis within a proximal dominant right coronary artery Mild pulmonary hypertension Low left-sided filling pressures/LVEDP PLAN 1. Despite the severity of the right coronary artery lesion this represents in-stent intimal hyperplasia and is therefore a lower risk lesion for [place]. It is reasonable to continue medical management for this lesion while at their more important biopsies and cell type is being evaluated 2. Further management for the primary inpatient cardiac team 3. In the future should patient experience worsening angina pectoris this lesion can easily be stented. At this time it is unlikely to be producing ischemia or contributing to LV dysfunction Exam Data for Last 24 hours Vital signs and Labs for Last 24 Hours: Temp Pulse Resp BP Pulse Ox O2 Del Method O2 Flow Rate 97.9 F 114 H 20 113/72 90 L Venturi Mask 15 02/04/23 07:57 02/04/23 09:04 02/04/23 07:57 02/04/23 04:00 02/04/23 07:57 02/04/23 07:57 02/04/23 06:49 FiO2 50 02/04/23 06:05 Laboratory Results - last 24 hr 02/03/23 01:47: ABG O2 Sat (Measured) 55.6 L, POC VBG O2 Sat ([place]) 60.7 L 02/04/23 05:17: WBC 11.2 H D, RBC 4.40, Hgb 12.7, Hct 39.8, MCV 90.6, MCH 28.8, MCHC 31.8, RDW 14.1, Plt Count 536 H, MPV 8.7, Neut % (Auto) 85.2 H, Lymph % (Auto) 6.7 L, [place] % (Auto) 5.4, Eos % (Auto) 2.4, Baso % (Auto) 0.4, Neut # (Auto) 9.6 H, Lymph # (Auto) 0.8, [place] # (Auto) 0.6, Eos # (Auto) 0.3, Baso # (Auto) 0.0, Total Counted 100, Neutrophils % (Manual) 86 H, Lymphocytes % (Manual) 8 L, Monocytes % (Manual) 4, Eosinophils % (Manual) 2, Platelet Estimate Moderate increase, RBC Morphology Normal, Sodium 138, Potassium 3.8, Chloride 96 L, Carbon Dioxide 31 H, Anion Gap 14.8, BUN 12 D, Creatinine 0.50 L, Estimated Creat Clear 42, Estimated GFR 123, Est GFR ( Amer) 149, Glucose 81, Calcium 8.8, Magnesium 2.0, Total Bilirubin 0.7, AST 51 H D, ALT 36 D, Alkaline Phosphatase 114, Total Protein 7.2, Albumin 3.7, Globulin 3.5 H, Albumin/Globulin Ratio 1.1 I & O for Last 24 hours: Intake & Output 02/01/23 02/02/23 02/03/23 02/04/23 23:59 23:59 23:59 23:59 Intake Total 760 / 1060 1520 / 1920 840 / 1180 460 / 460 Output Total 175 / 375 425 / 650 2225 / 2225 0 / 0 Balance 585 / 685 1095 / 1270 -1385 / -1045 460 / 460 Weight 106 lb 4.8 oz 106 lb 6.4 oz 106 lb 6.392 oz 106 lb 11.612 oz Microbiology Reports for the Last 24 Hours: Microbiology 01/29/23 18:30 Sputum - Expectorated Sputum Gram Stain - Final 01/29/23 18:30 Sputum - Expectorated Sputum Sputum Culture - Final 01/29/23 16:55 Blood Blood Culture - Preliminary 01/29/23 16:55 Blood Blood Culture - Final Constitutional Constitutional: no acute
--- NOTE | 2023-02-04 16:23 | PC.NURSE ---
A&OX4. TOLERATING 6LNC WELL. PT HAS HAD NO C/O SINCE THIS NURSE TOOK OVER CARE. FAMILY HAS BEEN AT BEDSIDE. PT HAS AMBULATED IN HALLWAY THIS SHIFT, DID VERY WELL WITH NO C/O. HAS ALSO BEEN UP TO BATHROOM. NO NEEDS NOTED AT THIS TIME, VSS.
--- NOTE | 2023-02-04 20:12 | EXP.ACUTE.PN ---
Subjective *Date: 02/04/23 *Time: 20:12 Interval history: Patient stable this morning. Tolerating weaning of oxygen. No nausea or vomiting. Numerous questions about plan for her heart, coronary artery disease, weaning her oxygen, and workup for her cancer. Discussed that we will refer her for close follow-up with oncology when she is weaned and stable for discharge. Holding on further biopsy at this time. Holding on further cath at this time. Patient tolerating p.o. intake. Afebrile Medical Exam Vital signs and Labs for Last 24 Hours: Vital Signs Temp Pulse Pulse Resp BP Pulse Ox O2 Del Method 02/04/23 19:59 98 Nasal Cannula 02/04/23 16:00 90 02/04/23 18:34 Nasal Cannula 02/04/23 18:06 86 20 02/04/23 18:05 98 Nasal Cannula 02/04/23 18:05 86 02/04/23 18:05 86 02/04/23 16:43 Nasal Cannula 02/04/23 15:28 97.9 F 91 H 18 122/72 98 Nasal Cannula 02/04/23 14:43 Nasal Cannula 02/04/23 12:00 120 H 02/04/23 08:00 110 H 02/04/23 12:51 Nasal Cannula 02/04/23 12:00 98.4 F 92 H 18 130/81 90 L Nasal Cannula 02/04/23 11:37 89 02/04/23 11:37 89 02/04/23 11:37 91 L Nasal Cannula 02/04/23 07:40 109 H 88 L Venturi Mask 02/04/23 11:00 Nasal Cannula 02/04/23 09:00 Venturi Mask 02/04/23 10:15 91 L Nasal Cannula 02/04/23 09:04 114 H 02/04/23 07:57 97.9 F 109 H 20 90 L Venturi Mask 02/04/23 06:49 Venturi Mask 02/04/23 06:05 104 H 02/04/23 06:05 106 H 02/04/23 06:05 91 L Venturi Mask 02/04/23 05:00 Venturi Mask 02/04/23 04:00 102 H 02/04/23 04:00 97.9 F 100 H 17 113/72 94 L Venturi Mask 02/04/23 03:00 Venturi Mask 02/04/23 00:00 102 H 02/04/23 01:00 Venturi Mask 02/04/23 00:00 98.1 F 102 H 22 136/80 88 L Venturi Mask 02/03/23 23:55 90 02/03/23 23:55 91 H 02/03/23 23:00 Venturi Mask 02/03/23 21:15 102 H 22 157/88 H 88 L Venturi Mask 02/03/23 20:15 107 H 23 168/84 H 91 L Venturi Mask 02/03/23 21:00 Venturi Mask O2 Flow Rate FiO2 02/04/23 19:59 6 02/04/23 16:00 02/04/23 18:34 6 02/04/23 18:06 02/04/23 18:05 6 02/04/23 18:05 02/04/23 18:05 02/04/23 16:43 6 02/04/23 15:28 6 02/04/23 14:43 6 02/04/23 12:00 02/04/23 08:00 02/04/23 12:51 6 02/04/23 12:00 02/04/23 11:37 02/04/23 11:37 02/04/23 11:37 6 02/04/23 07:40 15 50 02/04/23 11:00 6 02/04/23 09:00 15 02/04/23 10:15 6 02/04/23 09:04 02/04/23 07:57 02/04/23 06:49 15 02/04/23 06:05 02/04/23 06:05 02/04/23 06:05 50 02/04/23 05:00 15 02/04/23 04:00 02/04/23 04:00 02/04/23 03:00 15 02/04/23 00:00 02/04/23 01:00 15 02/04/23 00:00 15 50 02/03/23 23:55 02/03/23 23:55 02/03/23 23:00 15 02/03/23 21:15 15 50 02/03/23 20:15 15 50 02/03/23 21:00 15 Intake and Output 02/04/23 02/04/23 02/04/23 07:59 15:59 23:59 Intake Total 340 / 1100 490 / 1100 270 / 1100 Output Total 0 / 0 0 / 0 Balance 340 / 1100 490 / 1100 270 / 1100 Intake: Intake, Oral Amount 240 / 900 390 / 900 270 / 900 Intake, Total IV Amount 100 / 200 100 / 200 Piperacillin/Tazo 4.5 gm In 0.9 100 / 200 100 / 200 % Sodium Chloride 100 ml @ 200 mls/hr IV Q6H [facility] Rx#:[id number] Output: Output, Urine Amount 0 / 0 0 / 0 Other: Number of Voids 0 Number of Unmeasured Voids 1 1 1 Weight 48.41 kg Patient Weight 02/04/23 23:59 Weight 48.41 kg Laboratory Results - last 24 hr 02/04/23 05:17: WBC 11.2 H D, RBC 4.40, Hgb 12.7, Hct 39.8, MCV 90.6, MCH 28.8, MCHC 31.8, RDW 14.1, Plt Count 536 H, MPV 8.7, Neut % (Auto) 85.2 H, Lymph % (Auto) 6.7 L, [place] % (Auto) 5.4, Eos % (Auto) 2.4, Baso % (Auto) 0.4, Neut # (Auto) 9.6 H, Lymph # (Auto) 0.8, [place] # (Auto) 0.6, Eos # (Auto)
[2023-02-05] VITALS (9 sets, daily range): BP systolic 92–104; BP diastolic 53–65; PULSE 62–104; RESP 17–20; TEMP 36.4–36.6; O2SAT 90–94; BMI 22.4
--- NOTE | 2023-02-05 04:18 | PC.NURSE ---
Pt is alert and oriented x4 pt is currently on 6L of O2 and sating in mid 90s, Pt has complained of moderate pain which was relieved by pain medication. Pt denies pain and needs at this time.
[2023-02-05 06:51] LABS: Basophils % 0.2 % (0.1-2.0); Eosinophils # 0.4 K/mm3 (0.0-0.4); Eosinophils % 4.2 % (0.1-12.0); Hematocrit 38.6 % (37.0-47.0); Hemoglobin 12.5 g/dL (12.2-16.2); Lymphocytes # 1.1 K/mm3 (0.7-4.5); Lymphocytes % 11.7 % (10-50); Mean Corpuscular HGB Conc 32.3 g/dL (31.8-35.4); Mean Corpuscular Hemoglobin 29.5 pg (27.0-31.2); Mean Corpuscular Volume 91.2 fl (81-99); Mean Platelet Volume 7.4 fl (7.4-10.4); Monocytes # 0.5 K/mm3 (0.1-1.0); Monocytes % 4.8 % (1.7-9.3); Neutrophils # 7.4 K/mm3 (1.8-7.8); Neutrophils % 79.2 % (37.0-80.0); Platelet Count 568 K/mm3 (142-424); Red Blood Count 4.23 M/mm3 (4.20-5.40); Red Cell Distribution Width 13.7 % (11.5-17.5); White Blood Count 9.4 K/mm3 (4.8-10.8)
[2023-02-05 07:01] LABS: Chloride 102 mmol/L (98-107); Potassium 3.4 mmoL/L (3.5-5.1); Sodium 139 mmol/L (136-145)
[2023-02-05 07:04] LABS: Alanine Aminotransferase 34 U/L (12-78); Albumin Level 3.5 g/dl (3.5-5.0); Albumin/Globulin Ratio 1.1 (1.1-1.8); Alkaline Phosphatase 103 U/L (38-126); Anion Gap 7.4 mEq/L (5-15); Aspartate Amino Transferase 40 U/L (14-36); Bilirubin,Total 0.4 mg/dl (0.2-1.3); Blood Urea Nitrogen 15 mg/dl (7-17); Calcium 8.7 mg/dl (8.4-10.2); Carbon Dioxide 33 mmol/L (22.0-30.0); Creatinine Clearance Estimated 47 mL/min (50-200); Estimated Glomerular Filt Rate 123 ml/min (>60); GFR (African American) 149 ML/MIN (>60); Globulin 3.3 g/dL (1.3-3.2); Glucose 117 mg/dl (74-100); Total Protein,Serum 6.8 g/dl (6.3-8.2)
[2023-02-05 08:12] LABS: Magnesium 1.9 mg/dl (1.6-2.3)
--- NOTE | 2023-02-05 10:01 | EXP.PULM.PN ---
Subjective *Date: 02/05/23 *Time: 18:53 Interval history: No acute respiratory events overnight. Patient continued to remain on nasal oxygen supplementation. Pulmonology Exam Inpatient Vital signs and Labs for Last 24 Hours: Temp Pulse Resp BP Pulse Ox O2 Del Method O2 Flow Rate 97.9 F 86 17 99/54 L 93 L Nasal Cannula 5 02/05/23 07:51 02/05/23 08:10 02/05/23 07:51 02/05/23 07:51 02/05/23 07:51 02/05/23 08:46 02/05/23 08:46 FiO2 50 02/04/23 07:40 Laboratory Results - last 24 hr 02/05/23 06:30: WBC 9.4, RBC 4.23, Hgb 12.5, Hct 38.6, MCV 91.2, MCH 29.5, MCHC 32.3, RDW 13.7, Plt Count 568 H, MPV 7.4, Neut % (Auto) 79.2, Lymph % (Auto) 11.7, [place] % (Auto) 4.8, Eos % (Auto) 4.2, Baso % (Auto) 0.2, Neut # (Auto) 7.4, Lymph # (Auto) 1.1, [place] # (Auto) 0.5, Eos # (Auto) 0.4, Baso # (Auto) 0.0, Sodium 139, Potassium 3.4 L, Chloride 102, Carbon Dioxide 33 H, Anion Gap 7.4, BUN 15, Creatinine 0.50 L, Estimated Creat Clear 47, Estimated GFR 123, Est GFR ( Amer) 149, Glucose 117 H, Calcium 8.7, Magnesium 1.9, Total Bilirubin 0.4, AST 40 H, ALT 34, Alkaline Phosphatase 103, Total Protein 6.8, Albumin 3.5, Globulin 3.3 H, Albumin/Globulin Ratio 1.1 I & O for Labs for Last 24 Hours: Intake & Output 02/02/23 02/03/23 02/04/23 02/05/23 23:59 23:59 23:59 23:59 Intake Total 1520 / 1920 840 / 1180 1100 / 1460 360 / 360 Output Total 425 / 650 2225 / 2225 0 / 0 0 / 0 Balance 1095 / 1270 -1385 / -1045 1100 / 1460 360 / 360 Weight 106 lb 6.4 oz 106 lb 6.392 oz 106 lb 11.612 oz 119 lb 1 oz Microbiology Reports for the Last 24 Hours: Microbiology 01/29/23 18:30 Sputum - Expectorated Sputum Gram Stain - Final 01/29/23 18:30 Sputum - Expectorated Sputum Sputum Culture - Final 01/29/23 16:55 Blood Blood Culture - Preliminary 01/29/23 16:55 Blood Blood Culture - Final Constitutional: Present severe distress Head: Present normocephalic and atraumatic ENT: Present normal exam, normal oropharynx and mucous membranes moist Neck: Present normal inspection and full ROM Respiratory: Present respiratory distress, rhonchi, diminished air movement and able to speak in complete sentences; Absent wheezes Comment:: Pericardial drain in place. Decreased breath sounds right upper lung balderas. Cardiac: Present Irregularly Regular, S1/S2, Tachycardia and radial pulses present GI: Present soft and distention; Absent tenderness or guarding Rectal (female): Present deferred (female): Present deferred Skin: Present intact; Absent cyanosis or jaundice Neuro: Present alert, awake and oriented x 3 Extremities: Present normal inspection; Absent clubbing or cyanosis Psychiatric: Present normal affect and cooperative Assessment and Plan *Assessment and plan (1) Acute hypoxemic respiratory failure: Status: Acute Category: Medical Code(s): J96.01 - Acute respiratory failure with hypoxia (2) Primary lung cancer: Status: Acute Qualifiers: Laterality: right Qualified Code(s): C34.91 - Malignant neoplasm of unspecified part of right bronchus or lung Category: Medical Code(s): C34.90 - Malignant neoplasm of unspecified part of unspecified bronchus or lung (3) Pneumonia: Status: Resolved Qualifiers: Laterality: left Lung location: upper lobe of lung Pneumonia type: due to unspecified organism Qualified Code(s): J18.9 - Pneumonia, unspecified organism Category: Medical Code(s): J18.9 - Pneumonia, unspecified organism Plan Ms. Melo is a 67-year-old female with history of lung cancer in 2020 status post radiation without any chemotherapy recently CT showing worsening right hilar adenopathy conglomerate mass along with new nodules which are FGD avid on her PET scan presented to the hospital with concerns for pericardial effusion for admission from cardiology clinic. Patient denies any worsening cough and worsening productive phlegm. Denies any sign
--- NOTE | 2023-02-05 10:02 | XR_ITS ---
FINAL REPORT CLINICAL HISTORY: PNM COMPARISON: 02/02/2023 FINDINGS: A single portable view of the chest was obtained. The heart size and pulmonary vascularity are within normal limits. The mediastinum is within normal limits. Worsening left middle lobe opacity consistent with worsening pneumonia. The bony thorax is intact. IMPRESSION: Worsening pneumonia. Reviewed, Interpreted and Dictated by Vinnie Wagner III, MD Transcribed by Maribell Xiao Authenticated and [facility]
--- NOTE | 2023-02-05 10:23 | PC.NURSE ---
PT IS 81% AT REST ON ROOM AIR.
--- NOTE | 2023-02-05 10:41 | PC.NURSE ---
There was not a notable change in breath sounds post treatment.
--- NOTE | 2023-02-05 11:24 | EXP.DC.SUM ---
General Admission date:: 01/27/23 Discharge date: 02/05/23 HPI HPI HPI: Patient is a 67-year-old female who presents to the hospital from cardiology office due to concern of pericardial effusion. Patient has past medical history of CAD, lung cancer, tobacco use, hyperlipidemia and hypertension. Patient was noticed to have pericardial effusion, patient complained of chest pain, pressure to the left side of chest patient was noticed to have pericardial effusion and was sent to the hospital for further evaluation plan is for possible pericardiocentesis per cardiology. Patient denied fever chills diarrhea constipation dysuria abdominal pain Hospital Course Hospital Course Hospital Course: Patient is a 67-year-old female who presents to the hospital from cardiology office due to concern of pericardial effusion. Patient has past medical history of CAD, lung cancer, tobacco use, hyperlipidemia and hypertension. Patient was noticed to have pericardial effusion, patient complained of chest pain, pressure to the left side of chest patient was noticed to have pericardial effusion and was sent to the hospital for further evaluation. Status post pericardiocentesis with removal of drain. Patient has gradually weaned her oxygen requirement after completing treatment with antibiotics for pneumonia. Weaned to 4 to 5 L by day of discharge. Will discharge home with oxygen. Stable for discharge with close follow-up with oncology, pulmonology, PCP, cardiology. Problems addressed as follows: Acute hypoxemic respiratory failure Secondary to pneumonia Recurrent/metastatic non-small cell lung cancer -Patient initiated on antibiotics, chest imaging concerning for pneumonia, blood cultures, sputum culture, MRSA swab obtained. Blood cultures negative, sputum cultures negative, MRSA swab negative. Patient is completed 7 days of Zosyn. Oxygen requirement has gradually weaned to 5 L nasal cannula by day of discharge with maintaining sats greater 90%. Diuresed intermittently during admission. No indication for further antibiotics. Patient would benefit from follow-up with pulmonology. Treated with incentive spirometry and flutter valve during admission along with DuoNebs every 6 hours. Resume home inhalers at discharge. Patient qualified for home oxygen with room air saturation of 81%. Patient also referred to oncology. Has appointment with Dr. Gu tomorrow morning. Pericardial effusion CAD A-fib -Noted to have pericardial effusion on chest imaging. Cardiology was consulted, pericardiocentesis performed with placement of drain that was subsequently removed on 01/30. Fluid culture negative. Cytology still pending at time of discharge. Repeat echoes showed no significant recurrence of effusion. Left heart cath was performed on 02/03 with narrowing of RCA but no stent placement at this time. See cath report for full details. Continue digoxin 250 mcg daily. Initiated on Xarelto 15 mg daily. Rate controlled on current regimen. Plan for cardiology follow-up. HFrEF: Echocardiogram obtained 01/21/23 showing mildly reduced LV systolic function (LVEF 45-50%), Asynchronous septum. Mildly dilated RV. Mild biatrial dilation, Mild MR, mild TR, Markedly elevated RVSP 55-60 mmHg. Patient started on goal-directed therapy with bisoprolol 5 mg daily, jardiance 10mg daily, Entresto 24/26 mg twice daily. Common bile duct dilation -Unclear significance at this time. Patient has no abdominal pain. LFTs normal. Bilirubin 0.9, AST 38, ALT 39. CT of the abdomen obtained with no juan obstruction or mass. Recommend outpatient referral for further management. Anxiety: continue home diazepam Spent 40 minutes in discharge counseling, documentation, discussion with specialists, and direct care with patient. Exam Data for Last 24 hours Vital signs and Labs for Last 24 Hours: Temp Pulse Resp BP Pulse Ox O2 Del Method O2 Flow Rate 97.9 F 78 17 99/54 L 90 L Nasal
--- NOTE | 2023-02-05 12:49 | PC.NURSE ---
PT STATES SHE WANTS HER PRESCRIPTIONS SENT TO [facility] IN [facility].
--- NOTE | 2023-02-05 15:50 | CARE MANAGER ---
Met with patient this morning to discuss discharge needs. Patient discharging today and will require 5L O2 at home. Patient Choice signed for [facility], and order/clinical were faxed. I called and spoke with Sarah at [facility], and requested a 10L concentrator so that patient will have some reserve if needed, and she agreed to provide a 10L concentrator. Portable delivered to bedside prior to discharge.
--- NOTE | 2023-02-06 15:31 | CARE MANAGER ---
Contacted patient related to hospital discharge. She states she is ok. She has all her medications and is aware of follow up appointments. She is going to reschedule her appointment with Dr. Reagan as Mondays are not good. Denies other questions or concerns.
== END 2023-02-05 13:55 | disposition home or self-care (01) | DRG 270 ==
PROVIDERS: Internal Medicine Adolescent Medicine; Internal Medicine Pulmonary Disease; Nurse Practitioner Family; Admitting Provider Internal Medicine; PCP Internal Medicine Adolescent Medicine; Visit Provider Internal Medicine
PROC: 0W9D30Z Drainage of Pericardial Cavity with Drainage Device, Percutaneous Approach (ICD-10-PCS; principal; 2023-01-27 13:00)
PROC: 4A023N6 Measurement of Cardiac Sampling and Pressure, Right Heart, Percutaneous Approach (ICD-10-PCS; principal; 2023-02-03 08:00)
DX: I31.39 Other pericardial effusion (noninflammatory) (principal); J18.9 Pneumonia, unspecified organism; J96.01 Acute respiratory failure with hypoxia; C34.92 Malignant neoplasm of unspecified part of left bronchus or lung; T82.855A Stenosis of coronary artery stent, initial encounter; I50.20 Unspecified systolic (congestive) heart failure; R18.8 Other ascites; F41.9 Anxiety disorder, unspecified; J43.9 Emphysema, unspecified; I10 Essential (primary) hypertension; I25.10 Atherosclerotic heart disease of native coronary artery without angina pectoris; E78.5 Hyperlipidemia, unspecified; I95.9 Hypotension, unspecified; F17.210 Nicotine dependence, cigarettes, uncomplicated; I65.29 Occlusion and stenosis of unspecified carotid artery; Z91.199 Patient's noncompliance with other medical treatment and regimen due to unspecified reason; I48.91 Unspecified atrial fibrillation; Y83.1 Surgical operation with implant of artificial internal device as the cause of abnormal reaction of the patient, or of later complication, without mention of misadventure at the time of the procedure; I27.20 Pulmonary hypertension, unspecified; I11.0 Hypertensive heart disease with heart failure
CPT/HCPCS: 33010; 33017; 36415; 71045; 71275; 74177; 76700; 76930; 80048; 80053; 80061; 80076; 82042; 82150; 82247; 82810; 82945; 83615; 83735; 83986; 84155; 84484; 85007; 85025; 87040; 87070; 87081; 87205; 87632; 87635; 89051; 93005; 93308; 93456; 94640; 94660; 94667; 94668; 94761; 99152; 99153; C1725; C1769; C1894; J1644; J1956; J2543; Q9967

== ENCOUNTER → 2023-02-19 13:50 | Outpatient (CLI) | payer BC, SELFPAY ==
--- NOTE | 2023-02-19 13:50 | CA_ITS ---
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 Limited windows were obtained. The left ventricle is normal in size. There is normal LV wall thickness. There is mild global hypokinesis present. There is moderate hypokinesis of the inferior and inferoseptal LV chino. LVEF is 45%. There is a trivial pericardial effusion noted anteriorly. The largest pocket measures approximately 0.3-0.4 cm in diastole. No echo indications of tamponade. Compared to prior study from 02/02/2023, the pericardial effusion appears unchanged. Electronically signed by : Mariajose Prather MD 02/20/2023 19:20:04
== END ==
PROVIDERS: PCP Internal Medicine Adolescent Medicine; Visit Provider Internal Medicine
DX: I31.39 Other pericardial effusion (noninflammatory) (principal)
CPT/HCPCS: 93308

== ENCOUNTER 2023-02-25 10:08 | Inpatient (IN) | payer BC, SELFPAY ==
[2023-02-25] VITALS (17 sets, daily range): BP systolic 100–163; BP diastolic 51–119; PULSE 103–134; RESP 16–20; TEMP 36.6–36.9; O2SAT 88–96; BMI 17.2
--- NOTE | 2023-02-25 10:14 | ECG_ITS ---
APPROVED REPORT Exam: Resting ECG HR:111 bpm ECG Measurements Heart Rate 111 AXES NV 140 P 87 QRSd 97 QRS -70 QT 321 T 106 QTc 387 Conclusion SINUS TACHYCARDIA LEFT ATRIAL Abn ormality LAD with poor r wave progression ABNORMAL ECG UNCONFIRMED REPORT Electronically signed by : Mk Reagan MD 02/27/2023 08:03:52
--- NOTE | 2023-02-25 10:37 | CT_ITS ---
FINAL REPORT TECHNIQUE: The patient was injected with IV contrast. Axial images were obtained through the chest in a PE protocol. 3-D reconstruction images were also performed. Individualized dose reduction techniques using automated exposure control or adjustment of the MA and/or KV according to patient's size were employed. CLINICAL HISTORY: cancer, shortness of breath, tachy COMPARISON: 01/29/2023 FINDINGS: Mediastinal vasculature is adequately opacified. No pulmonary artery filling defects are identified to suggest PE. There is no aortic dissection. There is no axillary adenopathy. There is abnormal soft tissue in the hilar regions bilaterally and in the mediastinum. Mediastinal soft tissue is more evident than on the previous study. The heart size is normal. There is no pericardial or pleural effusion. There are advanced changes of centrilobular emphysema. Pleural and parenchymal scarring is noted in the left perihilar region. Mass in the periphery of the right lower lobe measures 1.9 x 1.5 cm best seen on image 55 of series 5 is unchanged. Airspace infiltrate in the right base is consistent with acute pneumonia. The previously noted bilateral pleural effusions and right lower lobe consolidation have improved. IMPRESSION: Stable right lower lobe lung mass probably related to known malignancy. Infiltrative soft tissue in the mediastinum and hilar regions more evident than previous and concerning for neoplasia. Resolution of previously noted effusions but development of right lower lobe airspace infiltrate may be due to pneumonia or aspiration. Reviewed, Interpreted and Dictated by Praneeth Bernal MD Transcribed by Maribell Xiao Authenticated and [facility]
--- NOTE | 2023-02-25 10:38 | XR_ITS ---
FINAL REPORT CLINICAL HISTORY: Shortness of breath COMPARISON: 02/05/2023 FINDINGS: The heart size is normal. The mediastinum is normal. There is coarse interstitial opacity in both lungs. There is localized airspace opacity at the right base which is new and probably due to acute pneumonia. Prominence of the left hilum is stable. There are no pleural effusions. There is no pneumothorax. There is no osseous abnormality. IMPRESSION: Prominent left hilum. Airspace opacity right base consistent with pneumonia. Reviewed, Interpreted and Dictated by Praneeth Bernal MD Transcribed by Maribell Xiao Authenticated and [facility]
--- NOTE | 2023-02-25 10:40 | ED_ITS ---
Discharge Plan Disposition Patient Disposition: Admitted Chief Complaint: Shortness of Breath/Dyspnea Prescriptions Prescriptions: No Action Jardiance 10 mg tablet 10 mg PO DAILY 30 Days Qty: 30 0RF Stiolto Respimat 2.5-2.5 mcg/actuation mist 2 puff inhalation DAILY 90 Days Qty: 4 2RF albuterol sulfate 90 mcg/actuation HFA aerosol inhaler 2 inh inhalation QIDP PRN (Reason: shortness of breath or wheezing) Stiolto Respimat 2.5-2.5 mcg/actuation Mist 2 puff INHALATION DAILY Referrals Follow up/Referrals: Mk Reagan MD [Primary Care Provider] - See instructions Clinical Impressions Clinical Impression: Sepsis due to pneumonia, Acute exacerbation of chronic obstructive pulmonary disease Discharge ED Provider: Tomas Taylor General Adult HPI General Chief complaint: Shortness of Breath/Dyspnea Stated complaint: SOA Time Seen by Provider: 02/25/23 10:13 Mode of Arrival: Wheelchair Source of Information: Patient Limitations: No Limitations Description of Symptoms (Recalled from ER Triage Doc. by RN): pt reports shortness of breath and productive cough that started yesterday morning, reports being on 5L NC at home and her pcp is trying to wean her down to 2L, hx of COPD, denies any other symptoms History of Present Illness HPI narrative: Patient is a 67-year-old female with past medical history of COPD on baseline 2 L nasal cannula, lung cancer status postradiation in 2019 with recurrence pen ding biopsy, previous pericardial effusion who presents emergency department for evaluation of shortness of breath. Onset was acute, over the last 48 hours. There is associated cough. Due to persistent symptoms and worsening shortness of breath she presented to PCP where she had increased oxygen requirement from baseline (4 to 5 L today) causing her to be referred here for continued evaluation. No true chest pain. No other acute complaints at this time. Related Data Home Medications Medication Instructions Recorded Confirmed albuterol sulfate 90 mcg/actuation 2 inh inhalation QIDP PRN 01/27/23 02/25/23 aerosol inhaler shortness of breath or wheezing tiotropium 2.5 mcg-olodaterol 2.5 2 puff inhalation DAILY Breathing 01/27/23 02/25/23 mcg/actuation mist for inhalation Problems (Stiolto Respimat) Previous Rx's Medication Instructions Recorded empagliflozin 10 mg tablet 10 mg PO DAILY 30 days #30 tabs 02/11/23 (Jardiance) tiotropium 2.5 mcg-olodaterol 2.5 2 puff inhalation DAILY 90 days #4 02/20/23 mcg/actuation mist for inhalation grams (Stiolto Respimat) Allergies Allergy/AdvReac Type Severity Reaction Status Date / Time diazepam AdvReac Severe Vomiting Verified 02/25/23 10:25 aspirin AdvReac Other Verified 02/25/23 10:25 PFSH [facility] Disclaimer: The information contained in this section may have been updated after the patient was seen, as this information can be updated by other users. Medical History Acute hypoxemic respiratory failure Anxiety Atrial fibrillation with RVR Cancer Heart attack Hemoptysis Hilar lymphadenopathy History of lung cancer in adulthood Lung cancer Migraine Nodule of right lung Orthopnea Primary lung cancer Pulmonary emphysema Smoking greater than 30 pack years Stenosis of carotid artery Tooth abscess Antibiotics and diflucan for vaginitis from antibiotics. F/U with Dr Sherwood Surgical History History of bladder surgery History of heart artery stent History of hysterectomy Family History Other Cancer Heart attack Hypertension Stroke Social History Smoking Status: Current every day smoker tobacco type: cigarettes packs per day: 1 alcohol intake: never substance use type: denies use current occupational status: other Travel in the last 8 weeks: None ROS Obtained: Yes Systems reviewed as appropriate & no additional complaints except as documented Physical Exam General General appearance: alert and in no apparent distress Head Head exam: atraumatic and normocephalic Eye Eye exam: Present PERRL and EOMI ENT ENT exam: Present mucous membranes moist Neck Neck exam: Present normal inspection Chest Chest inspection: Present normal inspection and symmetric chest wall rise Respiratory Respiratory exam: Present respiratory distress, wheezes, accessory muscle use and other (Diffuse rhonchi) Cardiovascular Cardiovascular exam: Present normal rhythm and tachycardia Abdominal Exam Abdominal exam: Present soft; Absent tenderness Extremities Exam Extremities exam: Present normal inspection and other (No pitting edema bilateral lower extremities) Neurological Exam Neurological exam: Present alert Psychiatric Psychiatric exam: Present normal affect Skin Skin exam: Present warm and dry Medical Decision Making [facility] Inquiry Pt receiving controlled substance: No Vital Signs: 02/25/23 10:09 02/25/23 10:30 02/25/23 11:10 Temperature 98.4 F Temperature Source Oral Pulse Rate 114 H 103 H Pulse Rate [Left Radial] 114 H Respiratory Rate 20 20 18 Blood Pressure 113/70 128/54 L Blood Pressure [Right Arm] 148/79 H Blood Pressure Mean 84 78 Blood Pressure Mean [Right Arm] 102 Blood Pressure Source [Right Arm] Automatic Cuff Blood Pressure Position [Right Arm] Sitting 02 Sat by Pulse Oximetry 95 88 L 93 L Oxygen Delivery Method Nasal Cannula Nasal Cannula Nasal Cannula Oxygen Flow Rate (LPM) 5 2 3 02/25/23 11:40 02/25/23 12:16 02/25/23 12:17 Temperature Temperature Source Pulse Rate 128 H 115 H 118 H Pulse Rate [Left Radial] Respiratory Rate 20 Blood Pressure 148/77 H Blood Pressure [Right Arm] Blood Pressure Mean 95 Blood Pressure Mean [Right Arm] Blood Pressure Source [Right Arm] Blood Pressure Position [Right Arm] 02 Sat by Pulse Oximetry 90 L Oxygen Delivery Method Nasal Cannula Oxygen Flow Rate (LPM) 2 Lab Data Lab Results 02/25/23 10:25: WBC 25.8 H*, RBC 4.39, Hgb 12.9, Hct 38.8, MCV 88.3, MCH 29.5, MCHC 33.4, RDW 15.3, Plt Count 272, MPV 9.5, Neut % (Auto) 94.1 H, Lymph % (Auto) 1.7 L, [place] % (Auto) 3.2, Eos % (Auto) 0.6, Baso % (Auto) 0.4, Neut # (Auto) 24.3 H, Lymph # (Auto) 0.4 L, [place] # (Auto) 0.8, Eos # (Auto) 0.2, Baso # (Auto) 0.1, Total Counted 100, Neutrophils % (Manual) 94 H, Lymphocytes % (Manual) 4 L, Monocytes % (Manual) 2, Platelet Estimate Normal, RBC Morphology Normal, Sodium 126 L, Potassium 3.8, Chloride 90 L, Carbon Dioxide 30, Anion Gap 9.8, BUN 8, Creatinine 0.50 L, Estimated Creat Clear 36, Estimated GFR 123, Est GFR ( Amer) 149, Glucose 132 H, Lactate 1.7, Calcium 8.6, Total Bilirubin 0.7, AST 31, ALT 21, Alkaline Phosphatase 85, Troponin I < 0.01, NT-Pro-B Natriuret Pep 1230 H, Total Protein 7.3, Albumin 3.9, Globulin 3.4 H, Albumin/Globulin Ratio 1.1 02/25/23 10:37: VBG pH 7.35, VBG pCO2 49.4, VBG pO2 42.1 H, VBG HCO3 26.8, VBG Total CO2 28.3 H, VBG O2 Saturation 74.2 H, VBG Base Excess 1.2 02/25/23 11:15: SARS-CoV-2 (PCR) Not detected, Influenza A Untype (PCR) Not detected, Influenza Type B (PCR) Not detected 02/25/23 10:25 02/25/23 10:25 Orders (Tests/Meds): ED MEDICATIONS Generic Name Dose Route Start Last Admin Trade Name Freq PRN Reason Stop Dose Admin Ceftriaxone Sodium 1 gm/ 50 mls @ 100 mls/hr 02/25/23 11:45 02/25/23 12:36 Sodium Chloride IV 03/07/23 11:44 100 mls/hr Q24H CY Administration Discontinued Medications Generic Name Dose Route Start Last Admin Trade Name Freq PRN Reason Stop Dose Admin Albuterol Sulfate 20 mg 02/25/23 12:04 02/25/23 12:16 Albuterol 0.083% 2.5 Mg/3 Ml [facility] 02/25/23 12:05 20 mg ONCE ONE Administration Albuterol/Ipratropium 9 ml 02/25/23 10:37 02/25/23 10:58 Ipratropium/Albuterol 3 Ml [facility] 02/25/23 10:38 9 ml ONCE ONE Administration Azithromycin 500 mg/ Sodium 250 mls @ 250 mls/hr 02/25/23 10:38 02/25/23 11:13 Chloride IV 02/25/23 10:39 250 mls/hr ONCE ONE Administration Lactated Ringer's 500 mls @ 999 mls/hr 02/25/23 10:40 02/25/23 10:59 Lactated Ringer's 500ml IV 02/25/23 11:10 999 mls/hr .Q31M ONE Administration Iopamidol 70 ml 02/25/23 11:41 02/25/23 11:42 Iopamidol-370 (76%);100ml Bottle IV 02/25/23 11:42 70 ml ONCE ONE Administration Methylprednisolone Sodium Succinate 125 mg 02/25/23 10:37 02/25/23 10:59 Methylprednisolone Sod Succ 125mg Vial IV 02/25/23 10:38 125 mg ONCE ONE Administration Sodium Chloride 40 ml 02/25/23 11:41 02/25/23 11:42 0.9 % Sodium Chloride 50 Ml Vial IV 02/25/23 11:42 40 ml ONCE ONE Administration ORDERS Category Date Time Status CT angio chest PE protocol Stat Cat Scan 02/25/23 10:37 Completed CXR --portable [XR chest portable] Stat Exams 02/25/23 10:38 Completed BNP [Brain Natriuretic Peptide] Stat Lab 02/25/23 10:25 Completed CBC w/Auto Diff [Complete Blood Count Auto Diff] Stat Lab 02/25/23 10:25 Completed CMP [Comprehensive Metabolic Panel] Stat Lab 02/25/23 10:25 Completed Lactic Acid Stat Lab 02/25/23 10:25 Completed Rapid PCR Covid and Flu A/B Stat Lab 02/25/23 11:15 Completed Trop I [Troponin I] Stat Lab 02/25/23 10:25 Completed Troponin I Q3H Lab 02/25/23 13:45 Ordered Troponin I Q3H Lab 02/25/23 16:45 Ordered Blood Culture Stat Micro 02/25/23 11:10 Received VBG [Venous Blood Gas] Stat RT 02/25/23 10:37 Completed ECG initial Besson Routine Y 02/25/23 10:14 Completed ECG Data Tracing #1: Independently interpreted by me, rate is 111, rhythm is regular, no ST elevation in anatomical contiguous leads, QTc 387. Tissue Perfus/Sepsis Re-Eval Sepsis Re-Evaluation Performed: Yes Date Performed: 02/25/23 Time Performed: 12:06 HEART Score History (anamnesis): Slightly suspicious ECG: Normal Age: >65 years Risk factors: 3 or more risk factors Troponin: </= normal limit HEART Score: 4 Medical Decision Narrative: In summary patient is a 67-year-old female with past medical history described above who presents emergency department for evaluation of shortness of breath. Patient is hemodynamically stable nontoxic-appearing upon arrival, afebrile, in respiratory distress, diffuse rhonchi and wheezing with accessory muscle use, tachycardic heart rate 114. Differential includes viral COPD exacerbation, pneumonia, pulmonary embolism, among others. Workup will be conducted with hematologic labs, chest x-ray, EKG, serial troponins, CT of the chest with IV contrast pulmonary embolism protocol, blood cultures. Initial interventions include DuoNeb's x 3, azithromycin, methylprednisolone. Initial fluid resuscitation will be conducted with 500 cc given review of recent echocardiogram which shows ejection fraction of 45% with trivial pericardial ef fusion. Workup reviewed by me, hematologic labs remarkable for significant leukocytosis, CT imaging reviewed by me, chronic lung disease, hyperdense lesions scattered throughout, lobar consolidation in the right lower lobe. Patient will be treated for pneumonia broadened with ceftriaxone in addition to her previously administered azithromycin. Patient is tolerating volume resuscitation so additional 500 cc will be administered. Upon repeat evaluation patient had persistent wheezing for which continuous albuterol will be administered for an hour. CT imaging shows evidence of known malignancy, chronic lung disease, right lower lobe pneumonia. The case was discussed with hospital medicine regarding management and patient will be admitted for sepsis secondary to community-acquired pneumonia. Patient will likely require continued gentle fluid resuscitation, aggressive full sepsis dose fluids with deferred in the emergency department due to history of heart failure. Critical Care Critical Care Time Critical Care Time: Yes Attestation: On 02/25/23, the high probability of a clinically significant, sudden or life threatening deterioration of the following system(s) required my full and direct attention, intervention and personal management. The time I documented below is in addition to time spent performing reported procedures but includes the following listed in this critical care notation. Total Time Total Critical Care Time: 35
[2023-02-25 10:52] LABS: Basophils # 0.1 K/mm3 (0-0.2); Basophils % 0.4 % (0.1-2.0); Eosinophils # 0.2 K/mm3 (0.0-0.4); Eosinophils % 0.6 % (0.1-12.0); Hematocrit 38.8 % (37.0-47.0); Hemoglobin 12.9 g/dL (12.2-16.2); Lymphocytes # 0.4 K/mm3 (0.7-4.5); Lymphocytes % 1.7 % (10-50); Mean Corpuscular HGB Conc 33.4 g/dL (31.8-35.4); Mean Corpuscular Hemoglobin 29.5 pg (27.0-31.2); Mean Corpuscular Volume 88.3 fl (81-99); Mean Platelet Volume 9.5 fl (7.4-10.4); Monocytes # 0.8 K/mm3 (0.1-1.0); Monocytes % 3.2 % (1.7-9.3); Neutrophils # 24.3 K/mm3 (1.8-7.8); Neutrophils % 94.1 % (37.0-80.0); Platelet Count 272 K/mm3 (142-424); Red Blood Count 4.39 M/mm3 (4.20-5.40); Red Cell Distribution Width 15.3 % (11.5-17.5); White Blood Count 25.8 K/mm3 (4.8-10.8)
--- NOTE | 2023-02-25 10:52 | PC.NURSE ---
respiratory aware of vbg order, blood in lab
--- NOTE | 2023-02-25 10:52 | PC.NURSE ---
lab aware of blood cultures needing drawn
[2023-02-25 10:56] LABS: Lactic Acid 1.7 mmol/L (0.7-2.1)
[2023-02-25 10:57] LABS: Alanine Aminotransferase 21 U/L (12-78); Albumin Level 3.9 g/dl (3.5-5.0); Albumin/Globulin Ratio 1.1 (1.1-1.8); Alkaline Phosphatase 85 U/L (38-126); Anion Gap 9.8 mEq/L (5-15); Aspartate Amino Transferase 31 U/L (14-36); Bilirubin,Total 0.7 mg/dl (0.2-1.3); Blood Urea Nitrogen 8 mg/dl (7-17); Calcium 8.6 mg/dl (8.4-10.2); Carbon Dioxide 30 mmol/L (22.0-30.0); Chloride 90 mmol/L (98-107); Creatinine Clearance Estimated 36 mL/min (50-200); Estimated Glomerular Filt Rate 123 ml/min (>60); GFR (African American) 149 ML/MIN (>60); Globulin 3.4 g/dL (1.3-3.2); Glucose 132 mg/dl (74-100); Potassium 3.8 mmoL/L (3.5-5.1); Sodium 126 mmol/L (136-145); Total Protein,Serum 7.3 g/dl (6.3-8.2)
[2023-02-25] MEDS: IPRATROPIUM/ALBUTEROL 3 ML NEB 9 ML IH (10:58)
[2023-02-25] MEDS: RINGERS SOLUTION,LACTATED 500 ML 999 ML IV (10:59)
[2023-02-25] MEDS: METHYLPREDNISOLONE SOD SUCC 125MG VIAL 125 MG IV (10:59)
[2023-02-25 11:00] LABS: VBG Base Excess 1.2 mmol/L (-2.4-2.3); VBG HCO3 26.8 mmol/L (23-30); VBG Oxygen Saturation 74.2 % (50-70); VBG PCO2 49.4 mmol/L (35-51); VBG PH 7.35 mmol/L (7.31-7.41); VBG PO2 42.1 mmol/L (28-40); VBG Total CO2 28.3 mmol/L (23-27)
[2023-02-25 11:09] LABS: NT Pro Brain Natriuretic Pep. 1230 pg/mL (0-125)
[2023-02-25] MEDS: AZITHROMYCIN 500 MG in 0.9 % SODIUM CHLORIDE 250 ML 250 MG IV (11:13)
[2023-02-25 11:15] LABS: MANUAL DIFFERENTIAL MANUAL DIFFERENTIAL (MANUAL DIFF)
[2023-02-25 11:16] LABS: Troponin I < 0.01 ng/ml (0.00-0.034)
--- NOTE | 2023-02-25 11:20 | PC.NURSE ---
Pt gone to RAD via wheelchair
--- NOTE | 2023-02-25 11:20 | PC.NURSE ---
PT TRANSPORTED TO RADIOLOGY VIA .
[2023-02-25 11:36] LABS: Coronavirus 19, PCR Not Detected (NotDetected); Influenza A, PCR Not Detected (NotDetected); Influenza B, PCR Not Detected (NotDetected)
--- NOTE | 2023-02-25 11:38 | PC.NURSE ---
Pt returned from RAD
[2023-02-25 11:42] LABS: Lymphocytes % 4 % (10-50); Monocytes % 2 % (2-9); Neutrophils % 94 % (42-76); Platelet Estimate Normal; RBC Morphology Normal; Total Cells Counted 100
[2023-02-25] MEDS: 0.9 % SODIUM CHLORIDE 50 ML VIAL 40 ML IV (11:42)
[2023-02-25] MEDS: IOPAMIDOL-370 (76%);100ML BOTTLE 70 ML IV (11:42)
[2023-02-25] MEDS: ALBUTEROL 0.083% 2.5 MG/3 ML NEB 20 MG IH (12:16)
[2023-02-25] MEDS: CEFTRIAXONE 1 GM 1 GM in 0.9 % SODIUM CHLORIDE 50 ML IV (12:36)
--- NOTE | 2023-02-25 12:51 | PC.NURSE ---
Dr Taylor speaking to Dr Weir
--- NOTE | 2023-02-25 12:53 | PC.NURSE ---
Notified CM of pt admission
--- NOTE | 2023-02-25 13:15 | PC.NURSE ---
CALLED REPORT TO JOSE TERRAZAS
--- NOTE | 2023-02-25 13:20 | PC.NURSE ---
arrived by w/c from ED
--- NOTE | 2023-02-25 13:21 | PC.NURSE ---
pt gone up for admission
[2023-02-25] MEDS: LACTATED RINGERS 1000ML 1,000 ML 500 ML IV (14:17)
--- NOTE | 2023-02-25 14:27 | HMH.PHAINT1 ---
Pharmacy Intervention Comments: Home med list verified with patient at bedside, patient stated the only medication she used at home was the Stiolto inhaler.
[2023-02-25 14:34] LABS: Troponin I < 0.01 ng/ml (0.00-0.034)
--- NOTE | 2023-02-25 15:14 | EXP.HP ---
History of Present Illness *Admission Date: 02/25/23 *Reason for visit:: dyspnea, productive cough *History of present illness: 67-year-old female with history of COPD, A-fib, primary lung cancer, and recent hospitalization for respiratory failure. Presented to the ER with productive cough that started over the past 3 to 4 days. Reports having increased shortness of breath since last Thursday. Was discharged from last hospitalization 2 weeks ago on 5 L nasal cannula and has been weaning down to 2 L at home. Has followed with pulmonology and cardiology as an outpatient with de-escalation of some of her medications. Currently only on Stiolto. In the ER, patient is found to have worsening shortness of breath and increased oxygen requirement from baseline. Requiring 4 L nasal cannula oxygen. Describes cough as productive with dark-colored sputum. Denies any nausea or vomiting. Workup positive for white cell count of 25,000. Sodium low at 126. BNP elevated at 1230. Chest imaging with CT showing right lower lobe pneumonia but resolution of her previous effusions. Medicine consulted for admission. Patient on 4 L nasal cannula during eval after arriving to the floor. She is currently afebrile. Meeting sepsis right. For tachycardia, leukocytosis, infection. Antibiotics broadened to cover for hospital-acquired pneumonia PFSH [facility] Disclaimer: The information contained in this section may have been updated after the patient was seen, as this information can be updated by other users. Medical History Acute hypoxemic respiratory failure Anxiety Atrial fibrillation with RVR Cancer Heart attack Hemoptysis Hilar lymphadenopathy History of lung cancer in adulthood Lung cancer Migraine Nodule of right lung Orthopnea Primary lung cancer Pulmonary emphysema Smoking greater than 30 pack years Stenosis of carotid artery Tooth abscess Surgical History History of bladder surgery History of heart artery stent History of hysterectomy Family History Heart attack Cancer Hypertension Stroke Social History Smoking Status: Current every day smoker tobacco type: cigarettes packs per day: 1 alcohol intake: never substance use type: denies use current occupational status: other Travel in the last 8 weeks: None Review of Systems Review of Systems Review of systems (narrative): 14 point review of systems performed, pertinent positives and negatives as per HPI Meds Home Medications and Allergies Home Medications Medication Instructions Recorded Confirmed Type tiotropium 2.5 mcg-olodaterol 2.5 2 puff inhalation DAILY Breathing 01/27/23 02/25/23 History mcg/actuation mist for inhalation Problems (Stiolto Respimat) New Prescriptions to Start Prescriptions: Allergies Allergy/AdvReac Type Severity Reaction Status Date / Time diazepam AdvReac Severe Vomiting Verified 02/25/23 10:25 aspirin AdvReac Other Verified 02/25/23 10:25 Exam Data for Last 24 hours Vital signs and Labs for Last 24 Hours: Temp Pulse Resp BP Pulse Ox O2 Del Method O2 Flow Rate 98.1 F 125 H 17 100/51 L 91 L Nasal Cannula 4 02/25/23 13:46 02/25/23 13:46 02/25/23 13:46 02/25/23 13:46 02/25/23 13:46 02/25/23 14:47 02/25/23 14:47 Laboratory Results - last 24 hr 02/25/23 10:25: WBC 25.8 H*, RBC 4.39, Hgb 12.9, Hct 38.8, MCV 88.3, MCH 29.5, MCHC 33.4, RDW 15.3, Plt Count 272, MPV 9.5, Neut % (Auto) 94.1 H, Lymph % (Auto) 1.7 L, [place] % (Auto) 3.2, Eos % (Auto) 0.6, Baso % (Auto) 0.4, Neut # (Auto) 24.3 H, Lymph # (Auto) 0.4 L, [place] # (Auto) 0.8, Eos # (Auto) 0.2, Baso # (Auto) 0.1, Total Counted 100, Neutrophils % (Manual) 94 H, Lymphocytes % (Manual) 4 L, Monocytes % (Manual) 2, Platelet Estimate Normal, RBC Morphology Normal, Sodium 126 L, Potassium 3.8, Chloride 90 L, Carbon Dioxide 30, Anion Gap 9.8, BUN 8, Creatinine 0.50 L, Estimated Creat Clear 36, Estimated GFR 123, Est GFR ( Amer) 149, Glucose 132 H, Lactate 1.7, Calcium 8.6, Total Bilirubin 0.7, AST 31, ALT 21, Alkaline Phosphatase 85, Troponin I < 0.01, NT-Pro-B Natriuret Pep 1230 H, Total Protein 7.3, Albumin 3.9, Globulin 3.4 H, Albumin/Globulin Ratio 1.1 02/25/23 10:37: VBG pH 7.35, VBG pCO2 49.4, VBG pO2 42.1 H, VBG HCO3 26.8, VBG Total CO2 28.3 H, VBG O2 Saturation 74.2 H, VBG Base Excess 1.2 02/25/23 11:15: SARS-CoV-2 (PCR) Not detected, Influenza A Untype (PCR) Not detected, Influenza Type B (PCR) Not detected 02/25/23 13:53: Troponin I < 0.01 I & O for Last 24 hours: Intake & Output 02/22/23 02/23/23 02/24/23 02/25/23 23:59 23:59 23:59 23:59 Weight 41.277 kg Constitutional Constitutional: mild distress, cachectic and chronically ill appearing *Routine HEENT Exam Head: Present normocephalic Eye: Present EOMI and PERRL ENT: Present mucous membranes moist *Routine Neck Exam Neck: Present supple; Absent lymphadenopathy *Routine Respiratory Exam Respiratory: Present prolonged expiratory phase, wheezes, crackles (Right lung field posterior lower lobe) and normal respiratory effort; Absent rhonchi *Routine Cardiovascular Exam Cardiovascular: Present tachycardia *Routine Abdominal Exam Abdominal: Present soft and normoactive bowel sounds; Absent tenderness *Routine Rectal Exam Rectal:: deferred *Routine Genitalia Exam Genitalia:: deferred *Routine Extremities Exam Extremities: Absent cyanosis, clubbing or edema *Routine Skin Exam Skin: Present warm; Absent rash *Routine Neurological Exam Neurological: Present alert, oriented X3 and moving all extremities; Absent altered mental status Assessment and Plan *Assessment and plan (1) Sepsis due to pneumonia: Status: Acute Category: Medical Code(s): J18.9 - Pneumonia, unspecified organism; A41.9 - Sepsis, unspecified organism (2) Acute exacerbation of chronic obstructive pulmonary disease: Status: Acute Category: Medical Code(s): J44.1 - Chronic obstructive pulmonary disease with (acute) exacerbation (3) Primary lung cancer: Status: Acute Qualifiers: Laterality: right Qualified Code(s): C34.91 - Malignant neoplasm of unspecified part of right bronchus or lung Category: Medical Code(s): C34.90 - Malignant neoplasm of unspecified part of unspecified bronchus or lung Plan Patient is a 67-year-old female who presents to the with worsening productive cough and shortness of breath. Workup in the ER concerning for sepsis and pneumonia. Discussed case with ER physician, request admission for antibiotics and further management. Medicine agreed to admit for further management. Pulmonology consulted, will see patient in the morning. Broadened antibiotics to cover for hospital-acquired pneumonia. Meeting sepsis for tachycardia, leukocytosis, infection. Necessitating inpatient admission. Problems addressed as follows: Acute on chronic hypoxemic respiratory failure Secondary to pneumonia Recurrent/metastatic non-small cell lung cancer -Broaden antibiotic to levofloxacin and cefepime for healthcare acquired pneumonia coverage -DuoNebs every 6 hours scheduled -Supplemental oxygen as needed, goal saturation greater 90%. Currently on 4 L -Pulmonology consulted, appreciate their recommendations and assistance in care -Personally reviewed CT, effusions have resolved. Location of consolidation and airspace disease is at site of right lower lobe consolidation/collapse from previous imaging. Does show some improvement in aeration. Right lower lobe nodule present and stable. -continue home Stiolto. -Sputum sample pending, blood cultures pending Previous A-fib appears resolved. Patient in sinus tach at this time. No indication for beta-blockers or rate controlling medication. Will monitor for improvement in heart rate with fluid resuscitation. Pericardial effusion appears to have resolved. Full code Cardiac diet Lovenox 40 mg daily
[2023-02-25] MEDS: LEVOFLOXACIN/D5W 750 MG/150 ML 750 MG/150 ML PIGGYBACK 100 MG IV (16:28)
[2023-02-25] MEDS: CEFEPIME HCL 2 GM in 0.9 % SODIUM CHLORIDE 100 ML IV (18:08)
[2023-02-25] MEDS: IPRATROPIUM/ALBUTEROL 3 ML NEB IH (18:18)
[2023-02-25 18:20] LABS: Troponin I < 0.01 ng/ml (0.00-0.034)
[2023-02-25] MEDS: METHYLPREDNISOLONE SOD SUCC 125MG VIAL 60 MG IV (23:19)
[2023-02-25] MEDS: ACETAMINOPHEN 325MG TAB 650 MG PO (23:24)
[2023-02-26] VITALS (13 sets, daily range): BP systolic 120–124; BP diastolic 65–85; PULSE 76–122; RESP 18–20; TEMP 36.5–36.8; O2SAT 90–97; BMI 18.0
[2023-02-26] MEDS: IPRATROPIUM/ALBUTEROL 3 ML NEB IH ×5 (00:35→22:58)
[2023-02-26] MEDS: CEFEPIME HCL 2 GM in 0.9 % SODIUM CHLORIDE 100 ML IV ×2 (06:04→17:45)
[2023-02-26 07:32] LABS: Basophils % 0.1 % (0.1-2.0); Hematocrit 35.2 % (37.0-47.0); Lymphocytes # 0.5 K/mm3 (0.7-4.5); Lymphocytes % 1.7 % (10-50); Mean Corpuscular HGB Conc 32.5 g/dL (31.8-35.4); Mean Corpuscular Hemoglobin 28.9 pg (27.0-31.2); Mean Corpuscular Volume 88.9 fl (81-99); Mean Platelet Volume 9.2 fl (7.4-10.4); Monocytes # 0.9 K/mm3 (0.1-1.0); Monocytes % 2.9 % (1.7-9.3); Neutrophils # 29.6 K/mm3 (1.8-7.8); Neutrophils % 95.2 % (37.0-80.0); Platelet Count 253 K/mm3 (142-424); Red Blood Count 3.96 M/mm3 (4.20-5.40); Red Cell Distribution Width 15.2 % (11.5-17.5); White Blood Count 31.1 K/mm3 (4.8-10.8)
[2023-02-26 07:34] LABS: MANUAL DIFFERENTIAL MANUAL DIFFERENTIAL (MANUAL DIFF)
[2023-02-26 07:44] LABS: Chloride 99 mmol/L (98-107); Potassium 4.1 mmoL/L (3.5-5.1); Sodium 134 mmol/L (136-145)
[2023-02-26 07:45] LABS: Hemoglobin 11.5 g/dL (12.2-16.2)
[2023-02-26 07:47] LABS: Alanine Aminotransferase 17 U/L (12-78); Albumin Level 3.5 g/dl (3.5-5.0); Albumin/Globulin Ratio 1.1 (1.1-1.8); Alkaline Phosphatase 101 U/L (38-126); Anion Gap 10.1 mEq/L (5-15); Aspartate Amino Transferase 23 U/L (14-36); Bilirubin,Total 0.4 mg/dl (0.2-1.3); Blood Urea Nitrogen 11 mg/dl (7-17); Calcium 9.1 mg/dl (8.4-10.2); Carbon Dioxide 29 mmol/L (22.0-30.0); Creatinine Clearance Estimated 38 mL/min (50-200); Estimated Glomerular Filt Rate 123 ml/min (>60); GFR (African American) 149 ML/MIN (>60); Globulin 3.2 g/dL (1.3-3.2); Glucose 153 mg/dl (74-100); Magnesium 1.6 mg/dl (1.6-2.3); Total Protein,Serum 6.7 g/dl (6.3-8.2)
[2023-02-26 08:03] LABS: Lymphocytes % 5 % (10-50); Monocytes % 2 % (2-9); Neutrophils % 93 % (42-76); RBC Morphology Normal; Total Cells Counted 100
[2023-02-26 08:04] LABS: Platelet Estimate Normal
--- NOTE | 2023-02-26 09:27 | P.CONS_ITS ---
History of Present Illness History of present illness: Ms. Miller is a 67-year-old female history of COPD, A-fib, history of lung cancer with worsening right hilar mass and adenopathy presented to the ER complaining of worsening productive cough for the last 3 to 4 days. Denies any known sick contacts. [facility] Disclaimer: The information contained in this section may have been updated after the patient was seen, as this information can be updated by other users. Medical History (Updated 02/26/23 @ 11:12 by Jose Sellers MD) Acute and chronic respiratory failure with hypoxia Acute hypoxemic respiratory failure Anxiety Atrial fibrillation with RVR Cancer Heart attack Hemoptysis Hilar lymphadenopathy History of lung cancer in adulthood Lung cancer Migraine Nodule of right lung Orthopnea Primary lung cancer Pulmonary emphysema Smoking greater than 30 pack years Stenosis of carotid artery Tooth abscess Surgical History History of bladder surgery History of heart artery stent History of hysterectomy Family History Heart attack Cancer Hypertension Stroke Social History Smoking Status: Current every day smoker tobacco type: cigarettes packs per day: 1 alcohol intake: never substance use type: denies use current occupational status: other Travel in the last 8 weeks: None Review of Systems Constitutional Constitutional: Reports anorexia, Reports body ache(s) and Reports fatigue Eyes Eyes: Denies eye discharge, Denies dry eyes, Denies irritation and Denies itchy eyes ENT Ears, Nose, Mouth, and Throat: Denies epistaxis, Denies facial pain, Denies lip swelling and Denies throat swelling *Cardiovascular Cardiovascular: Reports dyspnea and Reports dyspnea on exertion *Respiratory Respiratory: Reports change in phlegm color, Reports chest congestion, Reports cough, Reports dyspnea, Reports dyspnea on exertion, Reports excessive phlegm production and Reports wheezing *Gastrointestinal Gastrointestinal: Denies abdominal pain, Denies belching and Denies cramping *Musculoskeletal Musculoskeletal: Reports back pain, Reports myalgias and Reports other (No small joint swelling or Pain) Psychiatric Psychiatric: Denies homicidal ideation and Denies suicidal ideation Endocrine Endocrine: Reports fatigue and Denies heat intolerance Hematologic/Lymphatic Hematologic/Lymphatic: Denies easy bleeding and Denies lymphadenopathy Allergic/Immunologic Allergic/Immunologic: Denies itchy eyes, Denies lip swelling, Denies throat swelling and Reports wheezing Pulmonology Exam Inpatient Vital signs and Labs for Last 24 Hours: Temp Pulse Resp BP Pulse Ox O2 Del Method O2 Flow Rate 98.3 F 110 H 18 123/85 96 Room Air 4 02/26/23 08:00 02/26/23 08:00 02/26/23 08:00 02/26/23 08:00 02/26/23 08:00 02/26/23 08:00 02/26/23 07:00 Laboratory Results - last 24 hr 02/25/23 10:25: WBC 25.8 H*, RBC 4.39, Hgb 12.9, Hct 38.8, MCV 88.3, MCH 29.5, MCHC 33.4, RDW 15.3, Plt Count 272, MPV 9.5, Neut % (Auto) 94.1 H, Lymph % (Auto) 1.7 L, [place] % (Auto) 3.2, Eos % (Auto) 0.6, Baso % (Auto) 0.4, Neut # (Auto) 24.3 H, Lymph # (Auto) 0.4 L, [place] # (Auto) 0.8, Eos # (Auto) 0.2, Baso # (Auto) 0.1, Total Counted 100, Neutrophils % (Manual) 94 H, Lymphocytes % (Manual) 4 L, Monocytes % (Manual) 2, Platelet Estimate Normal, RBC Morphology Normal, Sodium 126 L, Potassium 3.8, Chloride 90 L, Carbon Dioxide 30, Anion Gap 9.8, BUN 8, Creatinine 0.50 L, Estimated Creat Clear 36, Estimated GFR 123, Est GFR ( Amer) 149, Glucose 132 H, Lactate 1.7, Calcium 8.6, Total Bilirubin 0.7, AST 31, ALT 21, Alkaline Phosphatase 85, Troponin I < 0.01, NT-Pro-B Natriuret Pep 1230 H, Total Protein 7.3, Albumin 3.9, Globulin 3.4 H, Albumin/Globulin Ratio 1.1 02/25/23 10:37: VBG pH 7.35, VBG pCO2 49.4, VBG pO2 42.1 H, VBG HCO3 26.8, VBG Total CO2 28.3 H, VBG O2 Saturation 74.2 H, VBG Base Excess 1.2 02/25/23 11:15: SARS-CoV-2 (PCR) Not detected, Influenza A Untype (PCR) Not detected, Influenza Type B (PCR) Not detected 02/25/23 13:53: Troponin I < 0.01 02/25/23 17:28: Troponin I < 0.01 02/26/23 06:46: WBC 31.1 H*, RBC 3.96 L, Hgb 11.5 L D, Hct 35.2 L, MCV 88.9, MCH 28.9, MCHC 32.5, RDW 15.2, Plt Count 253, MPV 9.2, Neut % (Auto) 95.2 H, Lymph % (Auto) 1.7 L, [place] % (Auto) 2.9, Eos % (Auto) 0.0 L, Baso % (Auto) 0.1, Neut # (Auto) 29.6 H, Lymph # (Auto) 0.5 L, [place] # (Auto) 0.9, Eos # (Auto) 0.0, Baso # (Auto) 0.0, Total Counted 100, Neutrophils % (Manual) 93 H, Lymphocytes % (Manual) 5 L, Monocytes % (Manual) 2, Platelet Estimate Normal, RBC Morphology Normal, Sodium 134 L, Potassium 4.1, Chloride 99, Carbon Dioxide 29, Anion Gap 10.1, BUN 11 D, Creatinine 0.50 L, Estimated Creat Clear 38, Estimated GFR 123, Est GFR ( Amer) 149, Glucose 153 H, Calcium 9.1, Magnesium 1.6, Total Bilirubin 0.4, AST 23 D, ALT 17, Alkaline Phosphatase 101, Total Protein 6.7, Albumin 3.5 D, Globulin 3.2, Albumin/Globulin Ratio 1.1 I & O for Labs for Last 24 Hours: Intake & Output 02/23/23 02/24/23 02/25/23 02/26/23 23:59 23:59 23:59 23:59 Intake Total 1340 / 1340 270 / 270 Output Total 500 / 500 0 / 0 Balance 840 / 840 270 / 270 Weight 91 lb 95 lb 9.6 oz Microbiology Reports for the Last 24 Hours: Microbiology 01/29/23 18:30 Sputum - Expectorated Sputum Gram Stain - Final 01/29/23 18:30 Sputum - Expectorated Sputum Sputum Culture - Final 01/29/23 16:55 Blood Blood Culture - Preliminary 01/29/23 16:55 Blood Blood Culture - Final Constitutional: Present severe distress Head: Present normocephalic and atraumatic ENT: Present normal exam, normal oropharynx and mucous membranes moist Neck: Present normal inspection and full ROM Respiratory: Present respiratory distress, rhonchi, diminished air movement and able to speak in complete sentences; Absent wheezes Cardiac: Present Irregularly Regular, S1/S2, Tachycardia and radial pulses present GI: Present soft and distention; Absent tenderness or guarding Rectal (female): Present deferred (female): Present deferred Skin: Present intact; Absent cyanosis or jaundice Neuro: Present alert, awake and oriented x 3 Extremities: Present normal inspection; Absent clubbing or cyanosis Psychiatric: Present normal affect and cooperative Meds Home Medications and Allergies Home Medications Medication Instructions Recorded Confirmed Type tiotropium 2.5 mcg-olodaterol 2.5 2 puff inhalation DAILY Breathing 01/27/23 02/25/23 History mcg/actuation mist for inhalation Problems (Stiolto Respimat) New Prescriptions to Start Prescriptions: Allergies Allergy/AdvReac Type Severity Reaction Status Date / Time diazepam AdvReac Severe Vomiting Verified 02/25/23 10:25 aspirin AdvReac Other Verified 02/25/23 10:25 Results Laboratory Findings 02/26/23 06:46 02/26/23 06:46 Abnormal lab findings: Abnormal Labs 02/25/23 02/25/23 02/26/23 10:25 10:37 06:46 WBC 25.8 H* 31.1 H* RBC 3.96 L Hgb 11.5 L D Hct 35.2 L Neut % (Auto) 94.1 H 95.2 H Lymph % (Auto) 1.7 L 1.7 L Eos % (Auto) 0.0 L Neut # (Auto) 24.3 H 29.6 H Lymph # (Auto) 0.4 L 0.5 L Neutrophils % (Manual) 94 H 93 H Lymphocytes % (Manual) 4 L 5 L VBG pO2 42.1 H VBG Total CO2 28.3 H VBG O2 Saturation 74.2 H Sodium 126 L 134 L Chloride 90 L Creatinine 0.50 L 0.50 L Glucose 132 H 153 H NT-Pro-B Natriuret Pep 1230 H Globulin 3.4 H Assessment and Plan *Assessment and plan (1) Sepsis due to pneumonia: Status: Acute Category: Medical Code(s): J18.9 - Pneumonia, unspecified organism; A41.9 - Sepsis, unspecified organism (2) Primary lung cancer: Status: Acute Qualifiers: Laterality: right Qualified Code(s): C34.91 - Malignant neoplasm of unspecified part of right bronchus or lung Category: Medical Code(s): C34.90 - Malignant neoplasm of unspecified part of unspecified bronchus or lung (3) Acute and chronic respiratory failure with hypoxia: Status: Acute Category: Medical Code(s): J96.21 - Acute and chronic respiratory failure with hypoxia Plan Ms. Miller is a 67-year-old female history of COPD, A-fib, history of lung cancer with worsening right hilar mass and adenopathy presented to the ER complaining of worsening productive cough for the last 3 to 4 days. Patient was recently in the hospital for prolonged course completed course of Zosyn, discharged on 5 L nasal cannula, seen in the clinic eventually and was weaned to room air at rest with continuation of oxygen with exertion. Patient on presentation with significantly worsening leukocytosis., Flu and COVID-19 PCR negative CTA upon admission patchy right lower lobe airspace disease with a previous noted bilateral effusions are completely resolved. Patient was initiated on cefepime in the ED along with nebs every 6 scheduled. Oxygen currently stable on room air. Nasal MRSA PCR from most recent admission negative. Plan: -Continue cefepime and levofloxacin pending culture results -Continue DuoNebs every 6 hours scheduled -Continue oxygen supplementation to maintain O2 saturation goal of 90-95 with, weaned to 1 L this morning. -Recommend cardiology consultation for possible preop clearance for scheduled bronchoscopy
[2023-02-26] MEDS: MAGNESIUM OXIDE 400MG TABLET 400 MG PO (09:35)
[2023-02-26] MEDS: ENOXAPARIN 30MG/0.3ML SYRINGE 30 MG SQ (09:35)
[2023-02-26] MEDS: LACTOBACILLUS PROBIOTIC COMB CAPSULE 1 CAP PO (10:00)
--- NOTE | 2023-02-26 12:51 | P.CONCA_ITS ---
History of Present Illness History of Present Illness Consult date: 02/26/23 Requesting physician: Yariel Weir Consult reason: pre-op evaluation Chief complaint: Shortness of breath and productive cough History of present illness: 67-year-old female with PMH of PAF anticoagulated on Xarelto, coronary artery disease with a medical management heart cath 02/04/2023, nonischemic heart failure with reduced ejection fraction of 45-50%, primary lung cancer, COPD and recent hospitalization for respiratory failure presented to the ER with productive cough that started over the past 3 to 4 days. Reports having increased shortness of breath since last Thursday. Was discharged from last hospitalization 2 weeks ago on 5 L nasal cannula and has been weaning down to 2 L at home. Has followed with pulmonology and cardiology as an outpatient with de-escalation of some of her medications. Currently only on Stiolto. In the ER, patient is found to have worsening shortness of breath and increased oxygen requirement from baseline. Requiring 4 L nasal cannula oxygen. Describes cough as productive with dark-colored sputum. Denies any nausea or vomiting. Workup positive for white cell count of 25,000. Sodium low at 126. BNP elevated at 1230. Chest imaging with CT showing right lower lobe pneumonia but resolution of her previous effusions. She is currently afebrile. Patient meets criteria for sepsis for tachycardia, leukocytosis, infection and is being managed per hopsitalist service. Antibiotics broadened to cover for hospital-acquired pneumonia. Cardiology was asked to consult for preoperative clearance for lung biopsy. [facility] Disclaimer: The information contained in this section may have been updated after the patient was seen, as this information can be updated by other users. Medical History (Updated 02/26/23 @ 13:03 by Lucy Prather APRN) Acute and chronic respiratory failure with hypoxia Acute hypoxemic respiratory failure Anxiety Atrial fibrillation with RVR Cancer Heart attack Hemoptysis Hilar lymphadenopathy History of lung cancer in adulthood Lung cancer Migraine Nodule of right lung Orthopnea Primary lung cancer Pulmonary emphysema Smoking greater than 30 pack years Stenosis of carotid artery Tooth abscess Surgical History History of bladder surgery History of heart artery stent History of hysterectomy Family History Heart attack Cancer Hypertension Stroke Social History Smoking Status: Current every day smoker tobacco type: cigarettes packs per day: 1 alcohol intake: never substance use type: denies use current occupational status: other Travel in the last 8 weeks: None Review of Systems Review of Systems Review of systems:: pertinent systems reviewed and negative unless documented below *Cardiovascular Cardiovascular: Reports dyspnea *Respiratory Respiratory: Reports cough and Reports dyspnea Exam Data for Last 24 hours Vital signs and Labs for Last 24 Hours: Temp Pulse Resp BP Pulse Ox O2 Del Method O2 Flow Rate 98.3 F 76 18 123/85 91 L Nasal Cannula 1 02/26/23 08:00 02/26/23 11:20 02/26/23 08:00 02/26/23 08:00 02/26/23 11:20 02/26/23 11:20 02/26/23 11:20 Laboratory Results - last 24 hr 02/25/23 13:53: Troponin I < 0.01 02/25/23 17:28: Troponin I < 0.01 02/26/23 06:46: WBC 31.1 H*, RBC 3.96 L, Hgb 11.5 L D, Hct 35.2 L, MCV 88.9, MCH 28.9, MCHC 32.5, RDW 15.2, Plt Count 253, MPV 9.2, Neut % (Auto) 95.2 H, Lymph % (Auto) 1.7 L, [place] % (Auto) 2.9, Eos % (Auto) 0.0 L, Baso % (Auto) 0.1, Neut # (Auto) 29.6 H, Lymph # (Auto) 0.5 L, [place] # (Auto) 0.9, Eos # (Auto) 0.0, Baso # (Auto) 0.0, Total Counted 100, Neutrophils % (Manual) 93 H, Lymphocytes % (Manual) 5 L, Monocytes % (Manual) 2, Platelet Estimate Normal, RBC Morphology Normal, Sodium 134 L, Potassium 4.1, Chloride 99, Carbon Dioxide 29, Anion Gap 10.1, BUN 11 D, Creatinine 0.50 L, Estimated Creat Clear 38, Estimated GFR 123, Est GFR ( Amer) 149, Glucose 153 H, Calcium 9.1, Magnesium 1.6, Total Bilirubin 0.4, AST 23 D, ALT 17, Alkaline Phosphatase 101, Total Protein 6.7, Albumin 3.5 D, Globulin 3.2, Albumin/Globulin Ratio 1.1 I & O for Last 24 hours: Intake & Output 02/23/23 02/24/23 02/25/23 02/26/23 23:59 23:59 23:59 23:59 Intake Total 1340 / 1340 400 / 400 Output Total 500 / 500 0 / 0 Balance 840 / 840 400 / 400 Weight 91 lb 95 lb 9.6 oz Constitutional Constitutional: no acute distress *Routine Respiratory Exam Respiratory: Present CTA bilaterally and symmetric chest movement *Routine Cardiovascular Exam Cardiovascular: Present RRR, Normal S1, Normal S2 and tachycardia *Routine Abdominal Exam Abdominal: Present soft and normoactive bowel sounds; Absent tenderness *Routine Extremities Exam Extremities: Present full ROM and normal capillary refill; Absent edema *Routine Skin Exam Skin: Present intact, dry and warm Detailed Neck Exam: Thyroids Thyroid: Absent bruit Meds Home Medications and Allergies Home Medications Medication Instructions Recorded Confirmed Type tiotropium 2.5 mcg-olodaterol 2.5 2 puff inhalation DAILY Breathing 01/27/23 02/25/23 History mcg/actuation mist for inhalation Problems (Stiolto Respimat) New Prescriptions to Start Prescriptions: Allergies Allergy/AdvReac Type Severity Reaction Status Date / Time diazepam AdvReac Severe Vomiting Verified 02/25/23 10:25 aspirin AdvReac Other Verified 02/25/23 10:25 Assessment and Plan *Assessment and plan (1) Acute and chronic respiratory failure with hypoxia: Status: Acute Category: Medical Code(s): J96.21 - Acute and chronic respiratory failure with hypoxia (2) Sepsis due to pneumonia: Status: Acute Category: Medical Code(s): J18.9 - Pneumonia, unspecified organism; A41.9 - Sepsis, unspecified organism (3) Acute exacerbation of chronic obstructive pulmonary disease: Status: Acute Category: Medical Code(s): J44.1 - Chronic obstructive pulmonary disease with (acute) exacerbation (4) Primary lung cancer: Status: Acute Qualifiers: Laterality: right Qualified Code(s): C34.91 - Malignant neoplasm of unspecified part of right bronchus or lung Category: Medical Code(s): C34.90 - Malignant neoplasm of unspecified part of unspecified bronchus or lung (5) CAD (coronary atherosclerotic disease): Status: Acute Qualifiers: Associated angina: without angina Coronary Disease-Associated Artery/Lesion type: [place] artery [place] vs. transplanted heart: [place] heart Qualified Code(s): I25.10 - Atherosclerotic heart disease of [place] coronary artery without angina pectoris Category: Medical Code(s): I25.10 - Atherosclerotic heart disease of [place] coronary artery without angina pectoris (6) Paroxysmal atrial fibrillation: Status: Acute Category: Medical Code(s): I48.0 - Paroxysmal atrial fibrillation Plan History of paroxysmal atrial fibrillation Chadsvasc score of 4 -Currently normal sinus rhythm -Supposed to be on Xarelto 20 mg p.o. daily but patient has not been taking medication. We do recommend patient restart Xarelto 20 mg p.o. daily after biopsy for treatment of PAF. -Patient is normal sinus rhythm but remains tachycardic with heart rate in the 100s. Recommend starting a low-dose beta-mohan such as bisoprolol 5 mg p.o. daily Hx of CAD -Medical management in 2014 and drug-eluting stent 2013 -Left and right heart catheterization 02/04/2023: Severe in-stent restenosis of the proximal dominant RCA, mild pulmonary hypertension, low left-sided filling pressures-favor medical management for RCA lesion at this time due to need for upcoming procedures and biopsies related to lung cancer. In the future should patient experience worsening angina pectoris this lesion can easily be stented. -Patient currently chest pain-free and denies symptoms. At recent visit patient had stopped taking aspirin due to tendinitis and refuses to take Plavix. Cardiology does recommend the patient takes either an aspirin or Plavix due to known disease. Also recommend the patient be on a high-dose statin. Hx of HFrEF History of pericardial effusion -Echocardiogram 03/12/2022 shows a mildly reduced LV systolic function of 45 to 50%, asynchronous septum, mildly dilated RV, biatrial dilation, mild MR mild TR, markedly elevated RVSP 55-60, moderate size anterior pericardial effusion is present which has since been drained and resolved. -No signs of volume overload at this time -Patient is supposed to be on low-dose Entresto, beta-mohan and Jardiance. Patient has stopped taking all medications. Cardiology does recommend these meds be resumed. Acute on chronic respiratory failure Acute exacerbation of COPD Primary lung cancer Sepsis due to pneumonia -Defer management to pulmonology and hospitalist services. CV summary 02/26/2023: Patient is a moderate but acceptable risk to proceed with procedure/ lung biopsy. Cardiology recommends restarting home medications as outlined above. Please contact service for any further concerns or issues.
--- NOTE | 2023-02-26 15:57 | PC.NURSE ---
Patient weaned to room air at rest but wearing 2-3LNC when ambulating. VS stable and lung sounds diminished. No other changes noted.
--- NOTE | 2023-02-26 17:05 | EXP.ACUTE.PN ---
Subjective *Date: 02/26/23 *Time: 17:05 Medical Exam Vital signs and Labs for Last 24 Hours: Vital Signs Temp Pulse Pulse Resp BP Pulse Ox O2 Del Method 02/26/23 15:59 110 H 02/26/23 16:00 98 F 99 H 20 120/65 97 Nasal Cannula 02/26/23 15:00 Room Air 02/26/23 12:00 100 H 02/26/23 08:00 110 H 02/26/23 12:57 Nasal Cannula 02/26/23 11:20 76 02/26/23 11:20 78 02/26/23 11:20 91 L Nasal Cannula 02/26/23 11:05 Nasal Cannula 02/26/23 09:35 Nasal Cannula 02/26/23 09:35 Nasal Cannula 02/26/23 08:00 98.3 F 110 H 18 123/85 96 Room Air 02/26/23 06:40 110 H 02/26/23 06:40 110 H 02/26/23 06:40 90 L Nasal Cannula 02/26/23 07:00 Nasal Cannula 02/26/23 05:00 Nasal Cannula 02/26/23 04:00 102 H 02/26/23 04:00 97.7 F 114 H 18 123/70 95 Nasal Cannula 02/26/23 03:00 Nasal Cannula 02/26/23 01:00 Nasal Cannula 02/26/23 00:00 108 H 02/26/23 00:35 102 H 02/26/23 00:35 102 H 02/25/23 23:00 Venturi Mask 02/25/23 23:06 114 H 02/25/23 21:00 Nasal Cannula 02/25/23 21:29 111 H Nasal Cannula 02/25/23 20:00 97.9 F 119 H 18 122/90 96 Nasal Cannula 02/25/23 18:33 Nasal Cannula 02/25/23 18:19 110 H 02/25/23 18:19 105 H 02/25/23 18:19 92 L Nasal Cannula O2 Flow Rate 02/26/23 15:59 02/26/23 16:00 02/26/23 15:00 02/26/23 12:00 02/26/23 08:00 02/26/23 12:57 1 02/26/23 11:20 02/26/23 11:20 02/26/23 11:20 1 02/26/23 11:05 1 02/26/23 09:35 3 02/26/23 09:35 3 02/26/23 08:00 02/26/23 06:40 02/26/23 06:40 02/26/23 06:40 4 02/26/23 07:00 4 02/26/23 05:00 4 02/26/23 04:00 02/26/23 04:00 4 02/26/23 03:00 4 02/26/23 01:00 4 02/26/23 00:00 02/26/23 00:35 02/26/23 00:35 02/25/23 23:00 02/25/23 23:06 02/25/23 21:00 4 02/25/23 21:29 4 02/25/23 20:00 3.5 02/25/23 18:33 3 02/25/23 18:19 02/25/23 18:19 02/25/23 18:19 4 Intake and Output 02/26/23 02/26/23 02/26/23 07:59 15:59 23:59 Intake Total 270 / 400 130 / 400 Output Total 0 / 0 Balance 270 / 400 130 / 400 Intake: Intake, Oral Amount 270 / 400 130 / 400 Output: Output, Urine Amount 0 / 0 Other: Number of Voids 1 Number of Unmeasured Voids 1 Weight 43.363 kg Patient Weight 02/26/23 23:59 Weight 43.363 kg Laboratory Results - last 24 hr 02/25/23 17:28: Troponin I < 0.01 02/26/23 06:46: WBC 31.1 H*, RBC 3.96 L, Hgb 11.5 L D, Hct 35.2 L, MCV 88.9, MCH 28.9, MCHC 32.5, RDW 15.2, Plt Count 253, MPV 9.2, Neut % (Auto) 95.2 H, Lymph % (Auto) 1.7 L, [place] % (Auto) 2.9, Eos % (Auto) 0.0 L, Baso % (Auto) 0.1, Neut # (Auto) 29.6 H, Lymph # (Auto) 0.5 L, [place] # (Auto) 0.9, Eos # (Auto) 0.0, Baso # (Auto) 0.0, Total Counted 100, Neutrophils % (Manual) 93 H, Lymphocytes % (Manual) 5 L, Monocytes % (Manual) 2, Platelet Estimate Normal, RBC Morphology Normal, Sodium 134 L, Potassium 4.1, Chloride 99, Carbon Dioxide 29, Anion Gap 10.1, BUN 11 D, Creatinine 0.50 L, Estimated Creat Clear 38, Estimated GFR 123, Est GFR ( Amer) 149, Glucose 153 H, Calcium 9.1, Magnesium 1.6, Total Bilirubin 0.4, AST 23 D, ALT 17, Alkaline Phosphatase 101, Total Protein 6.7, Albumin 3.5 D, Globulin 3.2, Albumin/Globulin Ratio 1.1 I & O for Labs for Last 24 Hours: Intake & Output 02/23/23 02/24/23 02/25/23 02/26/23 23:59 23:59 23:59 23:59 Intake Total 1340 / 1340 400 / 400 Output Total 500 / 500 0 / 0 Balance 840 / 840 400 / 400 Weight 41.277 kg 43.363 kg Assessment and Plan *Assessment and plan (1) Sepsis due to pneumonia: Status: Acute Category: Medical Code(s): J18.9 - Pneumonia, unspecified organism; A41.9 - Sepsis, unspecified organism (2) Acute exacerbation of chronic obstructive pulmonary disease: Status: Acute Category: Medical Code(s): J44.1 - Chronic obstructive pulmonary disease with (acute) exacerbation (3) Primary lung cancer: Status: Acute Qualifiers: Laterality: right Qualified Code(s): C34.91 - Malignant neoplasm of unspecified part of right bronchus or lung Category: Medical Code(s): C34.90 - Malignant neoplasm of unspecified part of unspecified bronchus or lung Plan Patient is a 67-year-old female who presents to the with worsening productive cough and shortness of breath. Workup in the ER concerning for sepsis and pneumonia. Discussed case with ER physician, request admission for antibiotics and further management. Medicine agreed to admit for further management. Pulmonology consulted, will see patient in the morning. Broadened antibiotics to cover for hospital-acquired pneumonia. Meeting sepsis for tachycardia, leukocytosis, infection. Patient showing some improvement today. Continues to require inpatient management however given persistent leukocytosis and respiratory distress. Problems addressed as follows: Acute on chronic hypoxemic respiratory failure Secondary to pneumonia Recurrent/metastatic non-small cell lung cancer -Pulmonology consulted, appreciate their recommendations. Discussed case today. Recommend continuing antibiotics with Levaquin and cefepime. - White cell count increased to 31,000 today. Repeat CBC, CMP, magnesium ordered for the morning.-Continue DuoNebs every 6 hours scheduled -Supplemental oxygen as needed, goal saturation greater 90%. Weaned to 1 L today -continue home Stiolto. -Sputum sample pending, blood cultures pending Cardiology consulted for preop clearance as patient is due for biopsy of lung lesion next week. Cardiology cleared patient. See note for details. Previous A-fib appears resolved. Patient in sinus tach at this time. No indication for beta-blockers or rate controlling medication. Will monitor for improvement in heart rate with fluid resuscitation. Pericardial effusion appears to have resolved. Full code Cardiac diet Lovenox 40 mg daily
[2023-02-27] VITALS (11 sets, daily range): BP systolic 112–138; BP diastolic 64–76; PULSE 80–116; RESP 18–24; TEMP 36.6–36.9; O2SAT 93–98; BMI 18.8
[2023-02-27] MEDS: ACETAMINOPHEN 325MG TAB 650 MG PO (02:57)
[2023-02-27] MEDS: BENZONATATE 100MG CAPSULE 100 MG PO (03:07)
[2023-02-27] MEDS: CEFEPIME HCL 2 GM in 0.9 % SODIUM CHLORIDE 100 ML IV ×2 (06:08→17:46)
--- NOTE | 2023-02-27 06:31 | XR_ITS ---
FINAL REPORT CLINICAL HISTORY: Pneumonia, shortness of breath COMPARISON: 02/25/2023 FINDINGS: The heart size is normal. The mediastinum is normal. Localized opacities in both upper and lower lobes appear to be stable and may be related to persistent multifocal pneumonia. There are chronic interstitial opacities in both lungs. There are no pleural effusions. There is no pneumothorax. There is no osseous abnormality. IMPRESSION: Persistent multifocal pneumonia. Stable chest exam. Reviewed, Interpreted and Dictated by Praneeth Bernal MD Transcribed by Maribell Xiao Authenticated and [facility]
[2023-02-27] MEDS: IPRATROPIUM/ALBUTEROL 3 ML NEB IH (06:40)
[2023-02-27 07:15] LABS: Basophils % 0.1 % (0.1-2.0); Eosinophils # 0.1 K/mm3 (0.0-0.4); Eosinophils % 0.5 % (0.1-12.0); Hematocrit 34.4 % (37.0-47.0); Hemoglobin 11.3 g/dL (12.2-16.2); Lymphocytes # 1.1 K/mm3 (0.7-4.5); Lymphocytes % 4.1 % (10-50); Mean Corpuscular HGB Conc 32.8 g/dL (31.8-35.4); Mean Corpuscular Hemoglobin 29.5 pg (27.0-31.2); Mean Corpuscular Volume 89.8 fl (81-99); Mean Platelet Volume 9.5 fl (7.4-10.4); Monocytes # 0.8 K/mm3 (0.1-1.0); Monocytes % 2.9 % (1.7-9.3); Neutrophils # 25.3 K/mm3 (1.8-7.8); Neutrophils % 92.4 % (37.0-80.0); Platelet Count 297 K/mm3 (142-424); Red Blood Count 3.83 M/mm3 (4.20-5.40); Red Cell Distribution Width 15.3 % (11.5-17.5); White Blood Count 27.4 K/mm3 (4.8-10.8)
[2023-02-27 07:16] LABS: MANUAL DIFFERENTIAL MANUAL DIFFERENTIAL (MANUAL DIFF)
[2023-02-27 07:26] LABS: Chloride 98 mmol/L (98-107)
--- NOTE | 2023-02-27 07:26 | P.PN_ITS ---
Subjective *Date: 02/27/23 *Time: 08:02 Interval history: No acute respiratory vents overnight. Pulmonology Exam Inpatient Vital signs and Labs for Last 24 Hours: Temp Pulse Resp BP Pulse Ox O2 Del Method O2 Flow Rate 98 F 100 H 20 137/76 96 Nasal Cannula 3 02/27/23 04:00 02/27/23 04:00 02/27/23 04:00 02/27/23 04:00 02/27/23 06:40 02/27/23 07:00 02/27/23 07:00 Laboratory Results - last 24 hr 02/26/23 06:46: WBC 31.1 H*, RBC 3.96 L, Hgb 11.5 L D, Hct 35.2 L, MCV 88.9, MCH 28.9, MCHC 32.5, RDW 15.2, Plt Count 253, MPV 9.2, Neut % (Auto) 95.2 H, Lymph % (Auto) 1.7 L, [place] % (Auto) 2.9, Eos % (Auto) 0.0 L, Baso % (Auto) 0.1, Neut # (Auto) 29.6 H, Lymph # (Auto) 0.5 L, [place] # (Auto) 0.9, Eos # (Auto) 0.0, Baso # (Auto) 0.0, Total Counted 100, Neutrophils % (Manual) 93 H, Lymphocytes % (Manual) 5 L, Monocytes % (Manual) 2, Platelet Estimate Normal, RBC Morphology Normal, Sodium 134 L, Potassium 4.1, Chloride 99, Carbon Dioxide 29, Anion Gap 10.1, BUN 11 D, Creatinine 0.50 L, Estimated Creat Clear 38, Estimated GFR 123, Est GFR ( Amer) 149, Glucose 153 H, Calcium 9.1, Magnesium 1.6, Total Bilirubin 0.4, AST 23 D, ALT 17, Alkaline Phosphatase 101, Total Protein 6.7, Albumin 3.5 D, Globulin 3.2, Albumin/Globulin Ratio 1.1 02/27/23 06:55: WBC 27.4 H*, RBC 3.83 L, Hgb 11.3 L, Hct 34.4 L, MCV 89.8, MCH 29.5, MCHC 32.8, RDW 15.3, Plt Count 297, MPV 9.5, Neut % (Auto) 92.4 H, Lymph % (Auto) 4.1 L, [place] % (Auto) 2.9, Eos % (Auto) 0.5, Baso % (Auto) 0.1, Neut # (Auto) 25.3 H, Lymph # (Auto) 1.1, [place] # (Auto) 0.8, Eos # (Auto) 0.1, Baso # ( Auto) 0.0 I & O for Labs for Last 24 Hours: Intake & Output 02/24/23 02/25/23 02/26/23 02/27/23 23:59 23:59 23:59 23:59 Intake Total 1340 / 1340 500 / 500 Output Total 500 / 500 0 / 0 0 / 0 Balance 840 / 840 500 / 500 0 / 0 Weight 91 lb 95 lb 9.6 oz 99 lb 8 oz Microbiology Reports for the Last 24 Hours: Microbiology 01/29/23 18:30 Sputum - Expectorated Sputum Gram Stain - Final 01/29/23 18:30 Sputum - Expectorated Sputum Sputum Culture - Final 01/29/23 16:55 Blood Blood Culture - Preliminary 01/29/23 16:55 Blood Blood Culture - Final Constitutional: Present severe distress Head: Present normocephalic and atraumatic ENT: Present normal exam, normal oropharynx and mucous membranes moist Neck: Present normal inspection and full ROM Respiratory: Present able to speak in complete sentences; Absent respiratory distress, wheezes, crackles or diminished air movement Cardiac: Present Irregularly Regular, S1/S2, Tachycardia and radial pulses present GI: Present soft and distention; Absent tenderness or guarding Rectal (female): Present deferred (female): Present deferred Skin: Present intact; Absent cyanosis or jaundice Neuro: Present alert, awake and oriented x 3 Extremities: Present normal inspection; Absent clubbing or cyanosis Psychiatric: Present normal affect and cooperative Assessment and Plan *Assessment and plan (1) Sepsis due to pneumonia: Status: Acute Category: Medical Code(s): J18.9 - Pneumonia, unspecified organism; A41.9 - Sepsis, unspecified organism (2) Primary lung cancer: Status: Acute Qualifiers: Laterality: right Qualified Code(s): C34.91 - Malignant neoplasm of unspecified part of right bronchus or lung Category: Medical Code(s): C34.90 - Malignant neoplasm of unspecified part of unspecified bronchus or lung (3) Acute and chronic respiratory failure with hypoxia: Status: Acute Category: Medical Code(s): J96.21 - Acute and chronic respiratory failure with hypoxia Plan Ms. Miller is a 67-year-old female history of COPD, A-fib, history of lung cancer with worsening right hilar mass and adenopathy presented to the ER complaining of worsening productive cough for the last 3 to 4 days. Patient was recently in the hospital for prolonged course completed course of Zosyn, discharged on 5 L nasal cannula, seen in the clinic eventually and was weaned to room air at rest with continuation of oxygen with exertion. Patient on presentation with significantly worsening leukocytosis., Flu and COVID-19 PCR negative CTA upon admission patchy right lower lobe airspace disease with a previous noted bilateral effusions are completely resolved. Patient was initiated on cefepime in the ED along with nebs every 6 scheduled. Oxygen currently stable on room air. Nasal MRSA PCR from most recent admission negative. Interval update: No acute respiratory events overnight. Leukocytosis improving from yesterday now at 27.4, neutrophilic predominant. Repeat chest x-ray from this morning no significant change. Plan: -Continue cefepime and levofloxacin pending blood and sputum culture results -Incentive spirometry -Continue levalbuterol and ipratropium every 6 hours on a scheduled basis -Continue oxygen supplementation to maintain O2 saturation goal of 90-95 with, weaned to 1 L this morning. -Cardiology seen patient, moderate but acceptable risk. Hold aspirin and Plavix 5 days prior to procedure. Patient also appears not to be compliant with her home medications at this point of time to optimize her cardiac risk. Thank you for involving pulmonary in this patient care. Please call with any further questions or concerns.
[2023-02-27 07:29] LABS: Alanine Aminotransferase 20 U/L (12-78); Aspartate Amino Transferase 30 U/L (14-36); Blood Urea Nitrogen 12 mg/dl (7-17); Creatinine Clearance Estimated 39 mL/min (50-200); Estimated Glomerular Filt Rate 160 ml/min (>60); GFR (African American) 193 ML/MIN (>60)
[2023-02-27 07:30] LABS: Alkaline Phosphatase 102 U/L (38-126); Bilirubin,Total 0.3 mg/dl (0.2-1.3); Calcium 8.5 mg/dl (8.4-10.2); Carbon Dioxide 30 mmol/L (22.0-30.0); Globulin 3.1 g/dL (1.3-3.2); Glucose 112 mg/dl (74-100); Magnesium 1.6 mg/dl (1.6-2.3); Total Protein,Serum 6.1 g/dl (6.3-8.2)
--- NOTE | 2023-02-27 07:48 | PC.NURSE ---
84% on room air at rest
[2023-02-27 07:53] LABS: Lymphocytes % 4 % (10-50); Neutrophils % 96 % (42-76); Total Cells Counted 100
[2023-02-27 07:55] LABS: Platelet Estimate Normal; RBC Morphology Normal
[2023-02-27 08:32] LABS: Sodium 133 mmol/L (136-145)
[2023-02-27] MEDS: ARTIFICIAL TEARS SOLN 15ML BOTTLE OP (08:42)
[2023-02-27] MEDS: MAGNESIUM SULFATE IN WATER 2 GM/50 ML PIGGYBACK IV (08:42)
[2023-02-27] MEDS: LACTOBACILLUS PROBIOTIC COMB CAPSULE 1 CAP PO (08:43)
[2023-02-27] MEDS: ENOXAPARIN 30MG/0.3ML SYRINGE 30 MG SQ (08:43)
[2023-02-27] MEDS: MAGNESIUM OXIDE 400MG TABLET 400 MG PO (08:43)
[2023-02-27] MEDS: BISOPROLOL 5MG TABLET 5 MG PO (10:36)
[2023-02-27] MEDS: LEVALBUTEROL 1.25MG/3ML NEB 1.25 MG IH ×3 (11:15→23:03)
[2023-02-27] MEDS: IPRATROPIUM BROMIDE 0.5 MG/2.5ML SOLUTION IH ×3 (11:15→23:02)
--- NOTE | 2023-02-27 15:33 | P.PN_ITS ---
Subjective *Date: 02/27/23 *Time: 18:04 Interval history: Continuing to wean oxygen. Patient necessitating 4 L while sleeping, down to 1- 2 while awake. Room air saturation this morning 84%. White cell count still significantly elevated. Patient having mildly productive cough. No nausea or vomiting. No chest pain. Afebrile. Hemodynamically stable. Medical Exam Vital signs and Labs for Last 24 Hours: Vital Signs Temp Pulse Pulse Resp BP Pulse Ox O2 Del Method 02/27/23 12:00 100 H 02/27/23 11:15 89 02/27/23 11:15 89 02/27/23 13:06 Nasal Cannula 02/27/23 11:05 Nasal Cannula 02/27/23 12:00 98.3 F 92 H 20 138/72 95 Nasal Cannula 02/27/23 08:43 Nasal Cannula 02/27/23 08:43 Nasal Cannula 02/27/23 08:00 110 H 02/27/23 07:50 98.2 F 113 H 20 112/64 93 L Nasal Cannula 02/27/23 07:00 Nasal Cannula 02/27/23 06:40 96 Nasal Cannula 02/27/23 04:00 104 H 02/27/23 05:00 Nasal Cannula 02/27/23 04:00 98 F 100 H 20 137/76 98 Nasal Cannula 02/27/23 03:00 Nasal Cannula 02/27/23 00:00 116 H 02/27/23 01:00 Nasal Cannula 02/27/23 00:00 98.2 F 111 H 18 131/64 96 Nasal Cannula 02/26/23 23:00 Nasal Cannula 02/26/23 23:19 122 H Nasal Cannula 02/26/23 21:00 Nasal Cannula 02/26/23 22:59 97 H 02/26/23 22:59 97 H 02/26/23 20:00 120 H 02/26/23 20:00 98 F 116 H 20 124/68 92 L Nasal Cannula 02/26/23 18:32 Nasal Cannula 02/26/23 18:09 108 H 02/26/23 18:09 108 H 02/26/23 18:09 93 L Nasal Cannula 02/26/23 17:00 Room Air 02/26/23 15:59 110 H 02/26/23 16:00 98 F 99 H 20 120/65 97 Nasal Cannula O2 Flow Rate 02/27/23 12:00 02/27/23 11:15 02/27/23 11:15 02/27/23 13:06 2 02/27/23 11:05 2 02/27/23 12:00 3 02/27/23 08:43 02/27/23 08:43 3 02/27/23 08:00 02/27/23 07:50 3.5 02/27/23 07:00 3 02/27/23 06:40 3 02/27/23 04:00 02/27/23 05:00 4 02/27/23 04:00 02/27/23 03:00 4 02/27/23 00:00 02/27/23 01:00 4 02/27/23 00:00 02/26/23 23:00 2.5 02/26/23 23:19 2 02/26/23 21:00 2 02/26/23 22:59 02/26/23 22:59 02/26/23 20:00 02/26/23 20:00 02/26/23 18:32 1 02/26/23 18:09 02/26/23 18:09 02/26/23 18:09 1 02/26/23 17:00 02/26/23 15:59 02/26/23 16:00 Intake and Output 02/26/23 02/27/23 02/27/23 23:59 07:59 15:59 Intake Total 100 / 500 120 / 600 480 / 600 Output Total 0 / 0 0 / 0 Balance 100 / 500 120 / 600 480 / 600 Intake: Intake, Oral Amount 100 / 500 120 / 600 480 / 600 Output: Output, Urine Amount 0 / 0 0 / 0 Other: Number of Voids 1 1 Number of Unmeasured Voids 1 3 Weight 45.132 kg 45.13 kg Patient Weight 02/27/23 23:59 Weight 45.13 kg Laboratory Results - last 24 hr 02/27/23 06:55: WBC 27.4 H*, RBC 3.83 L, Hgb 11.3 L, Hct 34.4 L, MCV 89.8, MCH 29.5, MCHC 32.8, RDW 15.3, Plt Count 297, MPV 9.5, Neut % (Auto) 92.4 H, Lymph % (Auto) 4.1 L, [place] % (Auto) 2.9, Eos % (Auto) 0.5, Baso % (Auto) 0.1, Neut # (Auto) 25.3 H, Lymph # (Auto) 1.1, [place] # (Auto) 0.8, Eos # (Auto) 0.1, Baso # (Auto) 0.0, Total Counted 100, Neutrophils % (Manual) 96 H, Lymphocytes % (Manual) 4 L, Platelet Estimate Normal, RBC Morphology Normal, Sodium 133 L, Potassium 4.0, Chloride 98, Carbon Dioxide 30, Anion Gap 9.0, BUN 12, Creatinine 0.40 L, Estimated Creat Clear 39, Estimated GFR 160, Est GFR ( Amer) 193 D, Glucose 112 H, Calcium 8.5, Magnesium 1.6, Total Bilirubin 0.3, AST 30 D, ALT 20, Alkaline Phosphatase 102, Total Protein 6.1 L, Albumin 3.0 L D, Globulin 3.1, Albumin/Globulin Ratio 1.0 L I & O for Labs for Last 24 Hours: Intake & Output 02/24/23 02/25/23 02/26/23 02/27/23 23:59 23:59 23:59 23:59 Intake Total 1340 / 1340 500 / 500 600 / 600 Output Total 500 / 500 0 / 0 0 / 0 Balance 840 / 840 500 / 500 600 / 600 Weight 41.277 kg 43.363 kg 45.13 kg Constitutional: Present no acute distress, cachectic and chronically ill appearing Head: Present atraumatic ENT: Present normal exam Neck: Present normal inspection Respiratory: Present prolonged expiratory phase, rhonchi, wheezes, crackles (Right lower lobe posterior lung field) and normal respiratory effort Cardiac: Present Regular Rhythm and Tachycardia Neuro: Present alert, awake, oriented x 3 and moves all extremities Assessment and Plan *Assessment and plan (1) Sepsis due to pneumonia: Status: Acute Category: Medical Code(s): J18.9 - Pneumonia, unspecified organism; A41.9 - Sepsis, unspecified organism (2) Acute exacerbation of chronic obstructive pulmonary disease: Status: Acute Category: Medical Code(s): J44.1 - Chronic obstructive pulmonary disease with (acute) exacerbation (3) Primary lung cancer: Status: Acute Qualifiers: Laterality: right Qualified Code(s): C34.91 - Malignant neoplasm of unspecified part of right bronchus or lung Category: Medical Code(s): C34.90 - Malignant neoplasm of unspecified part of unspecified bronchus or lung Plan Patient is a 67-year-old female who presents to the with worsening productive cough and shortness of breath. Workup in the ER concerning for sepsis and pneumonia. Discussed case with ER physician, request admission for antibiotics and further management. Medicine agreed to admit for further management. Pulmonology consulted, will see patient in the morning. Broadened antibiotics to cover for hospital-acquired pneumonia. Meeting sepsis for tachycardia, leukocytosis, infection. Patient showing some improvement today. Continues to require inpatient management however given persistent leukocytosis and respiratory distress. Problems addressed as follows: Acute on chronic hypoxemic respiratory failure Secondary to pneumonia Recurrent/metastatic non-small cell lung cancer -Pulmonology consulted, appreciate their recommendations. Discussed case today. Recommend continuing antibiotics with Levaquin and cefepime. Awaiting sputum culture to de-escalate antibiotics. -Chest x-ray personally reviewed, no significant change, minor findings of right lower lobe airspace disease. -White cell count 27,000 today, down from 31,000 yesterday. Repeat CBC, CMP, magnesium ordered for the morning - Continue DuoNebs every 6 hours scheduled -Supplemental oxygen as needed, goal saturation greater 90%. Requiring 1 to 4 L throughout the day -Continue incentive spirometry -continue home Stiolto. -Initiate probiotic Previous A-fib appears resolved. Patient in sinus tach at this time. Will resume bisoprolol 5 mg daily Full code Cardiac diet Lovenox 40 mg daily
[2023-02-27] MEDS: LEVOFLOXACIN/D5W 750 MG/150 ML 750 MG/150 ML PIGGYBACK 100 MG IV (15:35)
--- NOTE | 2023-02-27 18:06 | PC.NURSE ---
Patient weaned to 2LNC. IS given and patient using a couple times every hour. Patient still coughing up thick sputum. Lung sounds diminished. VS stable. No other changes noted.
[2023-02-28] VITALS (10 sets, daily range): BP systolic 114–144; BP diastolic 61–83; PULSE 80–101; RESP 16–20; TEMP 36.6–37.2; O2SAT 90–97
--- NOTE | 2023-02-28 04:08 | PC.NURSE ---
2L NC sat's between 84-87%. Pt is now 92% on 4L NC. frequent productive coughing, however patient refused any treatment/interventions.
[2023-02-28] MEDS: IPRATROPIUM BROMIDE 0.5 MG/2.5ML SOLUTION IH ×3 (06:15→18:26)
[2023-02-28] MEDS: LEVALBUTEROL 1.25MG/3ML NEB 1.25 MG IH ×3 (06:15→18:26)
[2023-02-28] MEDS: CEFEPIME HCL 2 GM in 0.9 % SODIUM CHLORIDE 100 ML IV ×2 (06:29→17:48)
[2023-02-28 06:54] LABS: Basophils % 0.1 % (0.1-2.0); Eosinophils # 0.1 K/mm3 (0.0-0.4); Eosinophils % 0.8 % (0.1-12.0); Hematocrit 35.5 % (37.0-47.0); Hemoglobin 11.4 g/dL (12.2-16.2); Lymphocytes # 0.9 K/mm3 (0.7-4.5); Lymphocytes % 4.8 % (10-50); Mean Corpuscular HGB Conc 32.2 g/dL (31.8-35.4); Mean Corpuscular Hemoglobin 28.7 pg (27.0-31.2); Mean Corpuscular Volume 89.1 fl (81-99); Mean Platelet Volume 8.5 fl (7.4-10.4); Monocytes # 0.9 K/mm3 (0.1-1.0); Monocytes % 4.9 % (1.7-9.3); Neutrophils # 15.7 K/mm3 (1.8-7.8); Neutrophils % 89.3 % (37.0-80.0); Platelet Count 332 K/mm3 (142-424); Red Blood Count 3.98 M/mm3 (4.20-5.40); Red Cell Distribution Width 15.4 % (11.5-17.5); White Blood Count 17.6 K/mm3 (4.8-10.8)
[2023-02-28 06:55] LABS: Chloride 93 mmol/L (98-107); Potassium 3.9 mmoL/L (3.5-5.1); Sodium 129 mmol/L (136-145)
[2023-02-28 06:56] LABS: MANUAL DIFFERENTIAL MANUAL DIFFERENTIAL (MANUAL DIFF); Magnesium 1.7 mg/dl (1.6-2.3)
[2023-02-28 06:58] LABS: Alanine Aminotransferase 16 U/L (12-78); Alkaline Phosphatase 98 U/L (38-126); Anion Gap 5.9 mEq/L (5-15); Aspartate Amino Transferase 21 U/L (14-36); Bilirubin,Total 0.5 mg/dl (0.2-1.3); Blood Urea Nitrogen 6 mg/dl (7-17); Carbon Dioxide 34 mmol/L (22.0-30.0); Creatinine Clearance Estimated 18 mL/min (50-200); Estimated Glomerular Filt Rate 160 ml/min (>60); GFR (African American) 193 ML/MIN (>60); Globulin 3.1 g/dL (1.3-3.2); Glucose 104 mg/dl (74-100); Total Protein,Serum 6.1 g/dl (6.3-8.2)
[2023-02-28] MEDS: LACTOBACILLUS PROBIOTIC COMB CAPSULE 1 CAP PO (08:04)
[2023-02-28] MEDS: ENOXAPARIN 30MG/0.3ML SYRINGE 30 MG SQ (08:04)
[2023-02-28] MEDS: MAGNESIUM OXIDE 400MG TABLET 400 MG PO (08:04)
[2023-02-28] MEDS: BISOPROLOL 5MG TABLET 5 MG PO (08:04)
[2023-02-28 08:22] LABS: Lymphocytes % 2 % (10-50); Monocytes % 5 % (2-9); Neutrophils % 93 % (42-76); Platelet Estimate Normal; RBC Morphology Normal; Total Cells Counted 100
--- NOTE | 2023-02-28 09:15 | EXP.PHA.PN ---
Subjective *Date: 02/28/23 *Time: 09:15 Medical Exam Vital signs and Labs for Last 24 Hours: Vital Signs Temp Pulse Pulse Resp BP Pulse Ox O2 Del Method 02/28/23 08:33 Nasal Cannula 02/28/23 08:00 93 L Nasal Cannula 02/28/23 07:28 97.9 F 101 H 18 141/74 H 93 L Nasal Cannula 02/28/23 06:15 95 H 02/28/23 06:15 101 H 02/28/23 06:15 93 L Nasal Cannula 02/28/23 05:00 Nasal Cannula 02/28/23 04:00 80 02/28/23 04:00 98 F 89 16 122/61 96 02/28/23 00:00 90 02/28/23 00:00 98.3 F 93 H 16 114/83 91 L Nasal Cannula 02/27/23 23:03 90 02/27/23 23:03 90 02/27/23 20:00 80 02/28/23 06:26 Nasal Cannula 02/28/23 03:00 Nasal Cannula 02/28/23 01:00 Nasal Cannula 02/27/23 23:00 Nasal Cannula 02/27/23 21:00 Nasal Cannula 02/27/23 20:00 Nasal Cannula 02/27/23 20:00 97.8 F 94 H 18 131/74 93 L Nasal Cannula 02/27/23 18:33 Room Air 02/27/23 17:15 Nasal Cannula 02/27/23 17:59 83 02/27/23 17:59 83 02/27/23 17:59 94 L Nasal Cannula 02/27/23 16:00 95 H 02/27/23 16:00 98.4 F 94 H 24 135/72 95 Nasal Cannula 02/27/23 15:00 Room Air 02/27/23 12:00 100 H 02/27/23 11:15 89 02/27/23 11:15 89 02/27/23 13:06 Nasal Cannula 02/27/23 11:05 Nasal Cannula 02/27/23 12:00 98.3 F 92 H 20 138/72 95 Nasal Cannula O2 Flow Rate 02/28/23 08:33 4 02/28/23 08:00 4 02/28/23 07:28 4 02/28/23 06:15 02/28/23 06:15 02/28/23 06:15 4 02/28/23 05:00 4 02/28/23 04:00 02/28/23 04:00 02/28/23 00:00 02/28/23 00:00 02/27/23 23:03 02/27/23 23:03 02/27/23 20:00 02/28/23 06:26 4 02/28/23 03:00 4 02/28/23 01:00 2 02/27/23 23:00 2 02/27/23 21:00 2 02/27/23 20:00 2 02/27/23 20:00 02/27/23 18:33 02/27/23 17:15 2 02/27/23 17:59 02/27/23 17:59 02/27/23 17:59 2 02/27/23 16:00 02/27/23 16:00 2 02/27/23 15:00 02/27/23 12:00 02/27/23 11:15 02/27/23 11:15 02/27/23 13:06 2 02/27/23 11:05 2 02/27/23 12:00 3 Intake and Output 02/27/23 02/28/23 02/28/23 23:59 07:59 15:59 Intake Total 480 / 1140 130 / 130 0 / 130 Output Total 0 / 0 0 / 0 Balance 480 / 1140 130 / 130 0 / 130 Intake: Intake, Oral Amount 480 / 1080 120 / 120 0 / 120 Intake, Other Amount 10 / 10 Output: Output, Urine Amount 0 / 0 0 / 0 Other: Intake, Other Source Saline Solution Number of Unmeasured Voids 1 Weight 20.471 kg Patient Weight 02/28/23 23:59 Weight 20.471 kg Laboratory Results - last 24 hr 02/28/23 06:32: WBC 17.6 H D, RBC 3.98 L, Hgb 11.4 L, Hct 35.5 L, MCV 89.1, MCH 28.7, MCHC 32.2, RDW 15.4, Plt Count 332, MPV 8.5, Neut % (Auto) 89.3 H, Lymph % (Auto) 4.8 L, [place] % (Auto) 4.9, Eos % (Auto) 0.8, Baso % (Auto) 0.1, Neut # (Auto) 15.7 H, Lymph # (Auto) 0.9, [place] # (Auto) 0.9, Eos # (Auto) 0.1, Baso # (Auto) 0.0, Total Counted 100, Neutrophils % (Manual) 93 H, Lymphocytes % (Manual) 2 L, Monocytes % (Manual) 5, Platelet Estimate Normal, RBC Morphology Normal, Sodium 129 L, Potassium 3.9, Chloride 93 L, Carbon Dioxide 34 H, Anion Gap 5.9, BUN 6 L D, Creatinine 0.40 L, Estimated Creat Clear 18, Estimated GFR 160, Est GFR ( Amer) 193, Glucose 104 H, Calcium 8.0 L, Magnesium 1.7, Total Bilirubin 0.5, AST 21 D, ALT 16, Alkaline Phosphatase 98, Total Protein 6.1 L, Albumin 3.0 L, Globulin 3.1, Albumin/Globulin Ratio 1.0 L I & O for Labs for Last 24 Hours: Intake & Output 02/25/23 02/26/23 02/27/23 02/28/23 23:59 23:59 23:59 23:59 Intake Total 1340 / 1340 500 / 500 1130 / 1140 130 / 130 Output Total 500 / 500 0 / 0 0 / 0 0 / 0 Balance 840 / 840 500 / 500 1130 / 1140 130 / 130 Weight 41.277 kg 43.363 kg 45.13 kg 20.471 kg Microbiology Reports for the Last 24 Hours: Microbiology 02/26/23 13:43 Sputum - Expectorated Sputum Gram Stain - Final 02/26/23 13:43 Sputum - Expectorated Sputum Sputum Culture - Preliminary 02/25/23 10:25 Blood Blood Culture - Preliminary 02/25/23 11:10 Blood Blood Culture - Preliminary The patient's infection will respond to the chosen ABx?: Yes (WHITE COUNT ELEVATED/TRENDING DOWN, AFEBRILE OVER 24 HOURS) Is the patient receiving the right drug, dose, and route?: Yes Could a more targeted ABx be ordered?: No (SPUTUM CULTURE PENDING, BLOOD CULTURE NO GROWTH AT 24 HRS)
--- NOTE | 2023-02-28 13:00 | P.PN_ITS ---
Subjective *Date: 02/28/23 *Time: 16:41 Interval history: Patient showing some improvement today. Gets really short of breath at night however. Requiring 4 L of oxygen at night when she sleeps, 1 L during the day. Having significant congestion and occasional blood clots in her nose. To lerating p.o. intake. Getting up to take shower this morning. No nausea or vomiting. Afebrile. Medical Exam Vital signs and Labs for Last 24 Hours: Vital Signs Temp Pulse Pulse Resp BP Pulse Ox O2 Del Method 02/28/23 12:24 Nasal Cannula 02/28/23 12:00 98.9 F 90 18 134/72 97 Nasal Cannula 02/28/23 11:22 93 H 02/28/23 11:22 93 H 02/28/23 11:22 93 L Nasal Cannula 02/28/23 10:56 Nasal Cannula 02/28/23 08:00 80 02/28/23 08:33 Nasal Cannula 02/28/23 08:00 93 L Nasal Cannula 02/28/23 07:28 97.9 F 101 H 18 141/74 H 93 L Nasal Cannula 02/28/23 06:15 95 H 02/28/23 06:15 101 H 02/28/23 06:15 93 L Nasal Cannula 02/28/23 05:00 Nasal Cannula 02/28/23 04:00 80 02/28/23 04:00 98 F 89 16 122/61 96 02/28/23 00:00 90 02/28/23 00:00 98.3 F 93 H 16 114/83 91 L Nasal Cannula 02/27/23 23:03 90 02/27/23 23:03 90 02/27/23 20:00 80 02/28/23 06:26 Nasal Cannula 02/28/23 03:00 Nasal Cannula 02/28/23 01:00 Nasal Cannula 02/27/23 23:00 Nasal Cannula 02/27/23 21:00 Nasal Cannula 02/27/23 20:00 Nasal Cannula 02/27/23 20:00 97.8 F 94 H 18 131/74 93 L Nasal Cannula 02/27/23 18:33 Room Air 02/27/23 17:15 Nasal Cannula 02/27/23 17:59 83 02/27/23 17:59 83 02/27/23 17:59 94 L Nasal Cannula 02/27/23 16:00 95 H 02/27/23 16:00 98.4 F 94 H 24 135/72 95 Nasal Cannula 02/27/23 15:00 Room Air 02/27/23 13:06 Nasal Cannula O2 Flow Rate 02/28/23 12:24 4 02/28/23 12:00 4 02/28/23 11:22 02/28/23 11:22 02/28/23 11:22 4 02/28/23 10:56 4 02/28/23 08:00 02/28/23 08:33 4 02/28/23 08:00 4 02/28/23 07:28 4 02/28/23 06:15 02/28/23 06:15 02/28/23 06:15 4 02/28/23 05:00 4 02/28/23 04:00 02/28/23 04:00 02/28/23 00:00 02/28/23 00:00 02/27/23 23:03 02/27/23 23:03 02/27/23 20:00 02/28/23 06:26 4 02/28/23 03:00 4 02/28/23 01:00 2 02/27/23 23:00 2 02/27/23 21:00 2 02/27/23 20:00 2 02/27/23 20:00 02/27/23 18:33 02/27/23 17:15 2 02/27/23 17:59 02/27/23 17:59 02/27/23 17:59 2 02/27/23 16:00 02/27/23 16:00 2 02/27/23 15:00 02/27/23 13:06 2 Intake and Output 02/27/23 02/28/23 02/28/23 23:59 07:59 15:59 Intake Total 480 / 1140 130 / 130 0 / 130 Output Total 0 / 0 0 / 0 Balance 480 / 1140 130 / 130 0 / 130 Intake: Intake, Oral Amount 480 / 1080 120 / 120 0 / 120 Intake, Other Amount 10 / 10 Output: Output, Urine Amount 0 / 0 0 / 0 Other: Intake, Other Source Saline Solution Number of Unmeasured Voids 1 Weight 20.471 kg Patient Weight 02/28/23 23:59 Weight 20.471 kg Laboratory Results - last 24 hr 02/28/23 06:32: WBC 17.6 H D, RBC 3.98 L, Hgb 11.4 L, Hct 35.5 L, MCV 89.1, MCH 28.7, MCHC 32.2, RDW 15.4, Plt Count 332, MPV 8.5, Neut % (Auto) 89.3 H, Lymph % (Auto) 4.8 L, [place] % (Auto) 4.9, Eos % (Auto) 0.8, Baso % (Auto) 0.1, Neut # (Auto) 15.7 H, Lymph # (Auto) 0.9, [place] # (Auto) 0.9, Eos # (Auto) 0.1, Baso # (Auto) 0.0, Total Counted 100, Neutrophils % (Manual) 93 H, Lymphocytes % (Manual) 2 L, Monocytes % (Manual) 5, Platelet Estimate Normal, RBC Morphology Normal, Sodium 129 L, Potassium 3.9, Chloride 93 L, Carbon Dioxide 34 H, Anion Gap 5.9, BUN 6 L D, Creatinine 0.40 L, Estimated Creat Clear 18, Estimated GFR 160, Est GFR ( Amer) 193, Glucose 104 H, Calcium 8.0 L, Magnesium 1.7, Total Bilirubin 0.5, AST 21 D, ALT 16, Alkaline Phosphatase 98, Total Protein 6.1 L, Albumin 3.0 L, Globulin 3.1, Albumin/Globulin Ratio 1.0 L I & O for Labs for Last 24 Hours: Intake & Output 02/25/23 02/26/23 02/27/23 02/28/23 23:59 23:59 23:59 23:59 Intake Total 1340 / 1340 500 / 500 1130 / 1140 130 / 130 Output Total 500 / 500 0 / 0 0 / 0 0 / 0 Balance 840 / 840 500 / 500 1130 / 1140 130 / 130 Weight 41.277 kg 43.363 kg 45.13 kg 20.471 kg Microbiology Reports for the Last 24 Hours: Microbiology 02/26/23 13:43 Sputum - Expectorated Sputum Gram Stain - Final 02/26/23 13:43 Sputum - Expectorated Sputum Sputum Culture - Preliminary 02/25/23 10:25 Blood Blood Culture - Preliminary 02/25/23 11:10 Blood Blood Culture - Preliminary Constitutional: Present no acute distress, cachectic and chronically ill appearing Head: Present atraumatic ENT: Present normal exam Neck: Present normal inspection Respiratory: Present prolonged expiratory phase, wheezes, crackles (Interval improvement in right lower lobe posterior lung field) and normal respiratory effort; Absent rhonchi Cardiac: Present Regular Rhythm and Tachycardia Neuro: Present alert, awake, oriented x 3 and moves all extremities Assessment and Plan *Assessment and plan (1) Sepsis due to pneumonia: Status: Acute Category: Medical Code(s): J18.9 - Pneumonia, unspecified organism; A41.9 - Sepsis, unspecified organism (2) Acute exacerbation of chronic obstructive pulmonary disease: Status: Acute Category: Medical Code(s): J44.1 - Chronic obstructive pulmonary disease with (acute) exacerbation (3) Primary lung cancer: Status: Acute Qualifiers: Laterality: right Qualified Code(s): C34.91 - Malignant neoplasm of unspecified part of right bronchus or lung Category: Medical Code(s): C34.90 - Malignant neoplasm of unspecified part of unspecified bronchus or lung Plan Patient is a 67-year-old female who presents to the with worsening productive cough and shortness of breath. Workup in the ER concerning for sepsis and pneumonia. Discussed case with ER physician, request admission for antibiotics and further management. Medicine agreed to admit for further management. Pulmonology consulted, will see patient in the morning. Broadened antibiotics to cover for hospital-acquired pneumonia. Meeting sepsis for tachycardia, leukocytosis, infection. Patient showing some improvement today. Continues to require inpatient management however given persistent leukocytosis and respiratory distress. Problems addressed as follows: Acute on chronic hypoxemic respiratory failure Secondary to pneumonia Recurrent/metastatic non-small cell lung cancer -continuing antibiotics with Levaquin and cefepime. Awaiting sputum culture to de-escalate antibiotics. Sputum culture showing light growth of gram-positive cocci and rods. -White cell count improved To 17.6 today. Repeat CBC, CMP, magnesium ordered for the morning - Continue DuoNebs every 6 hours scheduled -Supplemental oxygen as needed, goal saturation greater 90%. Requiring 1 to 4 L throughout the day -Continue incentive spirometry -continue home Stiolto. - continue probiotic Previous A-fib appears resolved. Patient in sinus rhythm, continue bisoprolol 5 mg daily Full code Cardiac diet Lovenox 40 mg daily
[2023-02-28] MEDS: OXYMETAZOLINE NASAL SPRAY 0.05% 15ML NS (16:48)
--- NOTE | 2023-02-28 17:55 | PC.NURSE ---
A&OX4. PT HAS TOLERATED 3LNC WHILE AWAKE-BUT HAS NEEDED UP TO 5 WHILE SLEEPING. PT UP INDEPENDENTLY IN ROOM. HAS HAD NO NEEDS OR C/O THUS FAR THIS SHIFT. PT HAS INTERMITTENT COUGH. HUMIDIFICATION TO O2 AND PRN NOSE SPRAY ADMINISTERED FOR DRY NOSE. FAMILY AT BEDSIDE. PT GOT A SHOWER. VSS.
[2023-03-01] VITALS: BP 127/72; PULSE 100; PULSE 97; RESP 22; TEMP 37.1; O2SAT 95
[2023-03-01 04:00] VITALS: BP 140/72; PULSE 100; PULSE 99; RESP 22; TEMP 36.9; O2SAT 95; BMI 18.6
[2023-03-01] MEDS: CEFEPIME HCL 2 GM in 0.9 % SODIUM CHLORIDE 100 ML IV (05:17)
[2023-03-01 06:22] VITALS: PULSE 97; PULSE 98
[2023-03-01] MEDS: LEVALBUTEROL 1.25MG/3ML NEB 1.25 MG IH (06:22)
[2023-03-01] MEDS: IPRATROPIUM BROMIDE 0.5 MG/2.5ML SOLUTION IH (06:22)
[2023-03-01 07:19] LABS: Basophils % 0.2 % (0.1-2.0); Eosinophils # 0.2 K/mm3 (0.0-0.4); Eosinophils % 1.4 % (0.1-12.0); Hematocrit 35.2 % (37.0-47.0); Hemoglobin 11.7 g/dL (12.2-16.2); Mean Corpuscular HGB Conc 33.1 g/dL (31.8-35.4); Mean Corpuscular Hemoglobin 28.9 pg (27.0-31.2); Mean Corpuscular Volume 87.2 fl (81-99); Mean Platelet Volume 8.7 fl (7.4-10.4); Monocytes # 1.2 K/mm3 (0.1-1.0); Neutrophils # 12.2 K/mm3 (1.8-7.8); Neutrophils % 83.4 % (37.0-80.0); Platelet Count 341 K/mm3 (142-424); Red Blood Count 4.04 M/mm3 (4.20-5.40); Red Cell Distribution Width 15.4 % (11.5-17.5); White Blood Count 14.7 K/mm3 (4.8-10.8)
[2023-03-01 07:20] LABS: Sodium 130 mmol/L (136-145)
[2023-03-01 07:21] LABS: Chloride 93 mmol/L (98-107); Potassium 4.1 mmoL/L (3.5-5.1)
[2023-03-01 07:22] LABS: Magnesium 1.6 mg/dl (1.6-2.3)
[2023-03-01 07:23] LABS: Alanine Aminotransferase 14 U/L (12-78); Alkaline Phosphatase 105 U/L (38-126); Anion Gap 9.1 mEq/L (5-15); Aspartate Amino Transferase 19 U/L (14-36); Bilirubin,Total 0.6 mg/dl (0.2-1.3); Blood Urea Nitrogen 7 mg/dl (7-17); Carbon Dioxide 32 mmol/L (22.0-30.0); Creatinine Clearance Estimated 39 mL/min (50-200); Estimated Glomerular Filt Rate 160 ml/min (>60); GFR (African American) 193 ML/MIN (>60)
[2023-03-01 07:24] LABS: Albumin Level 3.1 g/dl (3.5-5.0); Albumin/Globulin Ratio 1.1 (1.1-1.8); Calcium 8.2 mg/dl (8.4-10.2); Globulin 2.9 g/dL (1.3-3.2); Glucose 124 mg/dl (74-100)
[2023-03-01 08:00] VITALS: BP 121/65; PULSE 100; PULSE 99; RESP 18; TEMP 36.8; O2SAT 96
--- NOTE | 2023-03-01 09:37 | P.DS_ITS ---
General Admission date:: 02/25/23 Discharge date: 03/01/23 HPI HPI HPI: 67-year-old female with history of COPD, A-fib, primary lung cancer, and recent hospitalization for respiratory failure. Presented to the ER with productive cough that started over the past 3 to 4 days. Reports having increased shortness of breath since last Thursday. Was discharged from last hospitalization 2 weeks ago on 5 L nasal cannula and has been weaning down to 2 L at home. Has followed with pulmonology and cardiology as an outpatient with de-escalation of some of her medications. Currently only on Stiolto. In the ER, patient is found to have worsening shortness of breath and increased oxygen requirement from baseline. Requiring 4 L nasal cannula oxygen. Describes cough as productive with dark-colored sputum. Denies any nausea or vomiting. Workup positive for white cell count of 25,000. Sodium low at 126. BNP elevated at 1230. Chest imaging with CT showing right lower lobe pneumonia but resolution of her previous effusions. Medicine consulted for admission. Patient on 4 L nasal cannula during eval after arriving to the floor. She is currently afebrile. Meeting sepsis right. For tachycardia, leukocytosis, infection. Antibiotics broadened to cover for hospital-acquired pneumonia Hospital Course Hospital Course Hospital Course: Patient is a 67-year-old female who presents to the with worsening productive cough and shortness of breath. Workup in the ER concerning for sepsis and pneumonia. Discussed case with ER physician, request admission for antibiotics and further management. Medicine agreed to admit for further management. Pulmonology consulted, will see patient in the morning. Broadened antibiotics to cover for hospital-acquired pneumonia. Meeting sepsis for tachycardia, leukocytosis, infection. Sputum culture obtained. Patient has shown response to IV antibiotics. Stable oxygen requirement, requiring 4 L at night when she sleeps and 0 to 1 L during the day. Meeting discharge criteria. Transition to oral antibiotics. Close follow-up with pulmonology on 03/09/2023 for bro nchoscopy. Problems addressed as follows: Acute on chronic hypoxemic respiratory failure Secondary to pneumonia Recurrent/metastatic non-small cell lung cancer -Increased oxygen requirement on admission-started on IV antibiotics including Levaquin and cefepime. Sputum culture obtained which showed light growth of gram-positive cocci and rods. No final culture at discharge per preliminary reading normal respiratory torrie. Given clinical response and improvement in white cell count to 14.7 (less than half of initial white cell count), patient meeting criteria to transition to oral antibiotics and discharge home. Overall feeling significantly better. Continue DuoNebs at home. Patient has supplemental oxygen at home already. Transition to Levaquin to complete 10 days of antibiotics, renally dosed every 48 hours. Continue home Stiolto. Recommend probiotic [id number]. Encouraged patient to keep her appointment on 03/09 for bronchoscopy. Patient stated understanding. Previous A-fib appears resolved. Patient in sinus rhythm, continue bisoprolol 5 mg daily. Cardiology evaluated, patient is optimized for lung biopsy. Continue antibiotics. Stable for discharge home. Follow-up with pulmonology on 03/09 for bronchoscopy and biopsy. Spent 30 minutes in discharge counseling, documentation, chart review, and direct care with patient. Exam Data for Last 24 hours Vital signs and Labs for Last 24 Hours: Temp Pulse Resp BP Pulse Ox O2 Del Method O2 Flow Rate 98.3 F 99 H 18 121/65 96 Non-Rebreather 15 03/01/23 08:00 03/01/23 08:00 03/01/23 08:00 03/01/23 08:00 03/01/23 08:00 03/01/23 08:00 03/01/23 08:00 FiO2 36 02/28/23 18:57 Laboratory Results - last 24 hr 03/01/23 06:58: WBC 14.7 H, RBC 4.04 L, Hgb 11.7 L, Hct 35.2 L, MCV 87.2, MCH 28.9, MCHC 33.1, RDW 15.4, Plt Count 341, MPV 8.7, Neut % (Auto) 83.4 H, Lymph % (Auto) 7.0 L, [place] % (Auto) 8.0, Eos % (Auto) 1.4, Baso % (Auto) 0.2, Neut # (Auto) 12.2 H, Lymph # (Auto) 1.0, [place] # (Auto) 1.2 H, Eos # (Auto) 0.2, Baso # (Auto) 0.0, Sodium 130 L, Potassium 4.1, Chloride 93 L, Carbon Dioxide 32 H, Anion Gap 9.1, BUN 7, Creatinine 0.40 L, Estimated Creat Clear 39, Estimated GFR 160, Est GFR ( Amer) 193, Glucose 124 H, Calcium 8.2 L, Magnesium 1.6, Total Bilirubin 0.6, AST 19, ALT 14, Alkaline Phosphatase 105, Total Protein 6.0 L, Albumin 3.1 L, Globulin 2.9, Albumin/Globulin Ratio 1.1 I & O for Last 24 hours: Intake & Output 02/26/23 02/27/23 02/28/23 03/01/23 23:59 23:59 23:59 23:59 Intake Total 500 / 500 1130 / 1140 740 / 740 240 / 240 Output Total 0 / 0 0 / 0 0 / 0 0 / 0 Balance 500 / 500 1130 / 1140 740 / 740 240 / 240 Weight 43.363 kg 45.13 kg 20.471 kg 44.622 kg Microbiology Reports for the Last 24 Hours: Microbiology 02/26/23 13:43 Sputum - Expectorated Sputum Gram Stain - Final 02/26/23 13:43 Sputum - Expectorated Sputum Sputum Culture - Preliminary Constitutional Constitutional: no acute distress, thin and chronically ill appearing *Routine HEENT Exam Head: Present normocephalic Eye: Present EOMI and PERRL ENT: Present mucous membranes moist *Routine Neck Exam Neck: Present supple; Absent lymphadenopathy Routine Chest/Breast/Axilla Exam Comments: prominent ribs *Routine Respiratory Exam Respiratory: Present prolonged expiratory phase, wheezes and crackles (impeoved in right base, posterior lung field); Absent rhonchi *Routine Cardiovascular Exam Cardiovascular: Present RRR *Routine Abdominal Exam Abdominal: Present soft and normoactive bowel sounds; Absent tenderness *Routine Extremities Exam Extremities: Absent cyanosis, clubbing or edema *Routine Skin Exam Skin: Present warm; Absent rash *Routine Neurological Exam Neurological: Present alert, oriented X3 and moving all extremities; Absent altered mental status Routine Psychiatric Exam Psychiatric: Present normal affect Results Data Completed and Pending Labs on day of discharge: Labs from last 24 hours 03/01/23 06:58 WBC 14.7 H RBC 4.04 L Hgb 11.7 L Hct 35.2 L MCV 87.2 MCH 28.9 MCHC 33.1 RDW 15.4 Plt Count 341 MPV 8.7 Neut % (Auto) 83.4 H Lymph % (Auto) 7.0 L [place] % (Auto) 8.0 Eos % (Auto) 1.4 Baso % (Auto) 0.2 Neut # (Auto) 12.2 H Lymph # (Auto) 1.0 [place] # (Auto) 1.2 H Eos # (Auto) 0.2 Baso # (Auto) 0.0 Sodium 130 L Potassium 4.1 Chloride 93 L Carbon Dioxide 32 H Anion Gap 9.1 BUN 7 Creatinine 0.40 L Estimated Creat Clear 39 Estimated GFR 160 Est GFR ( Amer) 193 Glucose 124 H Calcium 8.2 L Magnesium 1.6 Total Bilirubin 0.6 AST 19 ALT 14 Alkaline Phosphatase 105 Total Protein 6.0 L Albumin 3.1 L Globulin 2.9 Albumin/Globulin Ratio 1.1 Preliminary micro results at discharge 02/26/23 13:43 Sputum Culture - Preliminary Sputum - Expectorated Sputum 02/25/23 10:25 Blood Culture - Preliminary Blood 02/25/23 11:10 Blood Culture - Preliminary Blood DS: Diagnosis Discharge Diagnosis (1) Sepsis due to pneumonia: Status: Acute Code(s): J18.9 - Pneumonia, unspecified organism; A41.9 - Sepsis, unspecified organism (2) Acute exacerbation of chronic obstructive pulmonary disease: Status: Acute Code(s): J44.1 - Chronic obstructive pulmonary disease with (acute) exacerbation (3) Primary lung cancer: Status: Acute Code(s): C34.90 - Malignant neoplasm of unspecified part of unspecified bronchus or lung Qualifiers: Laterality: right Qualified Code(s): C34.91 - Malignant neoplasm of unspecified part of right bronchus or lung Meds Home Medications and Allergies Home Medications Medication Instructions Recorded Confirmed Type tiotropium 2.5 mcg-olodaterol 2.5 2 puff inhalation DAILY Breathing 01/27/23 02/25/23 History mcg/actuation mist for inhalation Problems (Stiolto Respimat) L.acidophilus-L.paracasei-B.bifidum-S.thermophl 1 cap PO DAILY #0 caps 03/01/23 Rx 8 billion cell capsule (RisaQuad) bisoprolol fumarate 5 mg tablet 5 mg PO DAILY 30 days #30 tabs 03/01/23 Rx ipratropium bromide 0.02 % 0.5 mg (2.5 mL) inhalation Q6RT 30 03/01/23 Rx solution for inhalation days #300 mL levalbuterol HCl 1.25 mg/3 mL 1.25 mg (3 mL) inhalation Q6RT 30 03/01/23 Rx solution for nebulization days #360 mL levofloxacin 750 mg tablet 750 mg PO Q48H 6 days #3 tabs 03/01/23 Rx New Prescriptions to Start Prescriptions: bisoprolol fumarate Yariel Weir ipratropium bromide Yariel Weir levalbuterol HCl Yariel Weir levofloxacin Yariel Weir Allergies Allergy/AdvReac Type Severity Reaction Status Date / Time diazepam AdvReac Severe Vomiting Verified 02/25/23 10:25 aspirin AdvReac Other Verified 02/25/23 10:25 Discharge Plan Disposition Patient Disposition: Home, Self-Care Condition: Fair Discharge Order Discharge Orders: Discharge Order (Routine); Ordered 03/01/23 Ordered By: Yariel Weir Follow up Plan Follow up with: Jose Sellers MD [Physician] - 03/09/23 10:00 am Prescriptions/Medication Reconciliation: New bisoprolol fumarate 5 mg Tablet 5 mg PO DAILY 30 Days Qty: 30 0RF ipratropium bromide 0.02 % Solution 0.5 mg inhalation Q6RT 30 Days Qty: 300 0RF RisaQuad 8 billion cell Capsule 1 cap PO DAILY Qty: 0 0RF Rx 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 levalbuterol HCl 1.25 mg/3 mL Solution For Nebulization 1.25 mg inhalation Q6RT 30 Days Qty: 360 0RF levofloxacin 750 mg tablet 750 mg PO Q48H 6 Days Qty: 3 0RF Rx Instructions: first dose 03/03/23 Continued Stiolto Respimat 2.5-2.5 mcg/actuation Mist 2 puff INHALATION DAILY Problem Reconciliation Problems Reviewed?: Yes Patient Discharge Instructions ACTIVITY: Continue current activity DIET: continue same diet Patient Instructions: Pneumonia-Adult, Sepsis, DI for Pneumonia -- Adult, DI for Sepsis -- Adult, DI for Respiratory Failure Providers Primary Care Provider: Mk Reagan Admit Provider: Yariel Weir Attending Provider: Yariel Weir
[2023-03-01] MEDS: MAGNESIUM SULFATE IN WATER 2 GM/50 ML PIGGYBACK IV (09:47)
[2023-03-01] MEDS: MAGNESIUM OXIDE 400MG TABLET 400 MG PO (09:48)
[2023-03-01] MEDS: LACTOBACILLUS PROBIOTIC COMB CAPSULE 1 CAP PO (09:48)
[2023-03-01] MEDS: ENOXAPARIN 30MG/0.3ML SYRINGE 30 MG SQ (09:48)
[2023-03-01] MEDS: BISOPROLOL 5MG TABLET 5 MG PO (09:48)
[2023-03-01] MEDS: levoFLOXacin 750 MG TABLET PO (10:24)
[2023-03-01 11:20] VITALS: BP 83/55; PULSE 79; RESP 18; TEMP 36.4; O2SAT 95
--- NOTE | 2023-03-03 15:05 | CARE MANAGER ---
Contacted patient related to hospital discharge. She did get her medications. She is aware of appt. with pulmonology. Reports increase in swelling in BLE yesterday. We discussed possible reasons for swelling and I encouraged her to follow up with Dr. Reagan this week. She reports she will go if it gets worse. She denies other questions. MK Pace
== END 2023-03-01 13:02 | disposition home or self-care (01) | DRG 193 ==
LOC: ER 12:54 → 2ND 13:15
PROVIDERS: Admitting Provider Internal Medicine Adolescent Medicine; Emergency Provider Emergency Medicine; PCP Internal Medicine Adolescent Medicine; Visit Provider Internal Medicine Adolescent Medicine
DX: J18.9 Pneumonia, unspecified organism (principal); J96.21 Acute and chronic respiratory failure with hypoxia; C34.91 Malignant neoplasm of unspecified part of right bronchus or lung; Z79.899 Other long term (current) drug therapy; I25.10 Atherosclerotic heart disease of native coronary artery without angina pectoris; I48.0 Paroxysmal atrial fibrillation; Z99.81 Dependence on supplemental oxygen; J43.9 Emphysema, unspecified; I25.2 Old myocardial infarction; F17.210 Nicotine dependence, cigarettes, uncomplicated; F41.9 Anxiety disorder, unspecified; Z95.5 Presence of coronary angioplasty implant and graft
CPT/HCPCS: 36415; 71045; 71275; 80053; 82803; 83605; 83735; 83880; 84484; 85007; 85025; 87040; 87070; 87205; 87636; 93005; 94640; 94760; 94761; 99291; J0456; J0696; J1956; J3475; Q9967

== ENCOUNTER 2023-03-09 10:10 | Day surgery (SDC) | payer BC, SELFPAY ==
[2023-03-05 14:24] VITALS: BMI 17.2
[2023-03-09] VITALS (10 sets, daily range): BP systolic 91–125; BP diastolic 53–79; PULSE 91–106; RESP 18–28; TEMP 36.3–36.5; O2SAT 92–94
[2023-03-09] MEDS: LACTATED RINGERS 1000ML 1,000 ML 25 ML IV (10:23)
[2023-03-09 10:42] LABS: Basophils # 0.1 K/mm3 (0-0.2); Basophils % 0.3 % (0.1-2.0); Eosinophils # 0.2 K/mm3 (0.0-0.4); Eosinophils % 1.1 % (0.1-12.0); Hematocrit 34.2 % (37.0-47.0); Hemoglobin 11.2 g/dL (12.2-16.2); Lymphocytes % 6.1 % (10-50); Mean Corpuscular HGB Conc 32.8 g/dL (31.8-35.4); Mean Corpuscular Hemoglobin 28.8 pg (27.0-31.2); Mean Corpuscular Volume 87.8 fl (81-99); Monocytes # 0.8 K/mm3 (0.1-1.0); Monocytes % 4.5 % (1.7-9.3); Neutrophils # 14.6 K/mm3 (1.8-7.8); Neutrophils % 87.9 % (37.0-80.0); Platelet Count 509 K/mm3 (142-424); Red Cell Distribution Width 15.9 % (11.5-17.5); White Blood Count 16.6 K/mm3 (4.8-10.8)
[2023-03-09 10:48] LABS: MANUAL DIFFERENTIAL MANUAL DIFFERENTIAL (MANUAL DIFF)
[2023-03-09 10:51] LABS: Chloride 95 mmol/L (98-107); Potassium 3.9 mmoL/L (3.5-5.1); Sodium 134 mmol/L (136-145)
[2023-03-09 10:54] LABS: Blood Urea Nitrogen 14 mg/dl (7-17); Creatinine Clearance Estimated 36 mL/min (50-200); Estimated Glomerular Filt Rate 123 ml/min (>60); GFR (African American) 149 ML/MIN (>60)
[2023-03-09 10:55] LABS: Anion Gap 9.9 mEq/L (5-15); Calcium 8.9 mg/dl (8.4-10.2); Carbon Dioxide 33 mmol/L (22.0-30.0); Glucose 107 mg/dl (74-100)
--- NOTE | 2023-03-09 11:44 | P.PNANES_ITS ---
[facility] Disclaimer: The information contained in this section may have been updated after the patient was seen, as this information can be updated by other users. Medical History Acute and chronic respiratory failure with hypoxia Acute hypoxemic respiratory failure Anxiety Atrial fibrillation with RVR Cancer Heart attack Hemoptysis Hilar lymphadenopathy History of lung cancer in adulthood Lung cancer Migraine Nodule of right lung NSCLC of left lung Orthopnea Primary lung cancer Pulmonary emphysema Smoking greater than 30 pack years Stenosis of carotid artery Tooth abscess Surgical History History of bladder surgery History of heart artery stent History of hysterectomy Family History Other Cancer Heart attack Hypertension Stroke Social History Smoking Status: Current every day smoker tobacco type: cigarettes packs per day: 1 alcohol intake: never substance use type: denies use current occupational status: other Travel in the last 8 weeks: None [facility] Anesthesia Checklist Patient Identification Patient Identification: Arm Band and Verbal (Name & ) Structural Data Admitted From: Home Planned Operative Procedure/s: Bronchoscopy Consent for Planned Operative Procedure(s) Verified: Yes NPO Status Verified Time NPO: 00:00 Chart Verification Results Verified: CBC and BMP Additional verifications Anesthesia Reactions: No Hx Blood Transfusions: No Blood Transfusion Reaction: No Airway Assessment Mallampati Score:: Class I C-Spine Mobility Assessed: Yes TMJ Mobility Assessed: Yes Dentition: Good Dentition Neurological Assessment Level of Consciousness: Awake Hx Seizures: No Numbness or tingling in extremities: No Anesthesia Plan Anesthesia Risk discussed: Yes Anesthesia Plan: Verified ASA Class: IV Anesthesia Type: General
[2023-03-09 13:07] LABS: Eosinophils % 1 % (0-3); Lymphocytes % 6 % (10-50); Monocytes % 5 % (2-9); Neutrophils % 88 % (42-76); Total Cells Counted 100
[2023-03-09 13:08] LABS: Platelet Estimate Slight Increase; RBC Morphology Normal
--- NOTE | 2023-03-09 13:25 | XR_ITS ---
FINAL REPORT CLINICAL HISTORY: BRONCH IN OR, 53.2sec 5.42mgy FINDINGS: FLUOROSCOPY LESS THAN 1 HOUR HISTORY: Fluoroscopy guidance. FINDINGS: Fluoroscopic guidance was provided for bronchoscopy. A single spot film was obtained. A total of 53.2 seconds of fluoroscopy time were used. DAP: 5.42 mGy IMPRESSION: As above. Reviewed, Interpreted and Dictated by Vinnie Wagner III, MD Transcribed by Maribell Xiao Authenticated and [facility]
--- NOTE | 2023-03-09 13:33 | EXP.ANES.I ---
[facility] Anesthesia Record Part I Anesthesia Record I Intake, IV Amount: 800 Hydration: Adequate Estimated blood loss (mL): 10 Urine output (mL): 0 Blood Pressure: 100/62 SaO2: 92 Pulse Rate: 97 Airway Patency: Patent Respiratory Rate: 28 Temperature: 97.7 F Patient is:: Drowsy and Oral/Nasal airway Stable to PACU at:: 13:30
--- NOTE | 2023-03-09 13:34 | EXP.BRONCH.N ---
Procedure: Date: 03/09/23 Patient Date of :: 1955 Procedure Performed:: Bronchoscopy airway examination, bronchoalveolar lavage, endobronchial and transbronchial lung biopsy, endobronchial ultrasound-guided fine-needle aspirate Indications:: Lung nodule and lymphadenopathy Performing Provider:: Jose Sellers MD Referring Provider:: Dr: Mk Reagan MD Sedation:: General anesthesia Procedure:: Bronchoscopy with airway examination, bronchoalveolar lavage, endobronchial and transbronchial lung biopsy, endobronchial ultrasound-guided fine-needle aspirate: EBUS bronchoscopy with clearance of the ET tube and lymph node surveillance was performed. Patient noted lymphadenopathy at station 7 and station 10 R. Total of 5 passes were performed at 18 per station on the fine-needle aspiration sample was sent in CytoLyt for cytopathologic examination. EBUS bronchoscopy was retracted and a clean DIAGNOSTIC bronchoscopy was advanced through the ET tube and airways were examined up to subsegmental bronchi. Right upper lobe bronchus cannot be visualized and it appears to be a mass protruding from the right upper lobe bronchus. Endobronchial lesion was also noted throughout the entirity of the bronchus intermedius with luminal narrowing around 50%. No complete airway obstruction of bronchus intermedius noted. Endobronchial biopsies were performed the noted lesion to the right upper lobe bronchus and in the bronchus intermedius and were sent together in formalin for cytopathologic examination Bronchoalveolar lavage was performed in the RIGHT LOWER LOBE with instillation of 60 cc normal saline with return of 25 cc back. BAL fluid was sent for cell count and differential along with bacterial fungal and AFB stain and cultures. BAL fluid was also sent in CytoLyt for cytopathologic examination. Transbronchial biopsy was performed in the RIGHT LOWER LOBE with a total of 7 biopsies performed, 5 biopsy specimens were sent in formalin for cytopathologic examination. The other 2 biopsy samples, were sent one each in two separate normal saline specimen cups for bacterial fungal and AFB stain cultures. Special request was also made for the pathologist to evaluate for AFB and fungal organisms on the cytopathologic examination. Patient tolerated the procedure with no immediate acute complications. We will follow the patient in pulmonary clinic in 7 to 10 days. Findings:: Please see the procedure note Recommendations:: Postoperative bronchoscopy instructions. Follow in pulmonary clinic in 5 to 7 days postprocedure Complications:: No acute immediate complication Estimated blood obtained (mL): 10
--- NOTE | 2023-03-09 13:47 | XR_ITS ---
FINAL REPORT TECHNIQUE: Single view chest CLINICAL HISTORY: post bronch COMPARISON: 02/27/2023 FINDINGS: A single view of the chest was obtained. The heart and mediastinum are within normal limits. There are worsening right base opacities consistent with worsening pneumonia. Other bilateral opacities are unchanged. Right midlung nodule is stable. There is no pneumothorax. Osseous structures are unremarkable. IMPRESSION: Worsening right base opacities consistent with worsening pneumonia. Reviewed, Interpreted and Dictated by Vinnie Wagner III, MD Transcribed by Ilda Becerril Authenticated and [facility]
[2023-03-10 11:33] LABS: POC Glucose,Bedside 104 (70-110)
--- NOTE | 2023-03-11 11:08 | P.PNANES_ITS ---
[facility] Anesthesia Record Part II Anesthesia Record Part II Discharge Time: 13:59 Destination: Surgical Day Care (OP Surgery) PACU nurse assessment reviewed?: Yes Patient Condition:: Good Anesthesia Complications:: None Swallowing reflex intact?: Yes Airway Patency: Patent Cyanosis?: No Blood Pressure: 96/64 SaO2: 93 Respiratory Rate: 21 Pulse Rate: 100 Temperature: 97.4 F Mental Status: Alert & Oriented Pain level:: 0 Nausea and/or vomitting:: None Intake, IV Amount: 0 Hydration: Adequate
[2023-03-11 11:09] VITALS: BP 96/64; PULSE 100; RESP 21; TEMP 36.3; O2SAT 93
== END 2023-03-09 14:40 | disposition home or self-care (01) ==
PROVIDERS: PCP Internal Medicine Adolescent Medicine; Visit Provider Internal Medicine Pulmonary Disease
PROC: (CPT 31624; principal; 2023-03-09 11:30)
DX: C34.11 Malignant neoplasm of upper lobe, right bronchus or lung (principal); R91.1 Solitary pulmonary nodule; F17.210 Nicotine dependence, cigarettes, uncomplicated; R59.0 Localized enlarged lymph nodes; R06.02 Shortness of breath
CPT/HCPCS: 31624; 31654; 31628; 71045; 76000; 80048; 82962; 85007; 85025; 87070; 87102; 87116; 87186; 87205; 87206; 89051; J2405

== ENCOUNTER 2023-03-27 07:19 | Outpatient (CLI) | payer BC, SELFPAY ==
--- NOTE | 2023-03-27 07:28 | MR_ITS ---
FINAL REPORT CLINICAL HISTORY: LUNG CANCER. FINDINGS: Multi planar MR imaging was obtained through the brain without contrast. Patient refused contrast. The midline structures appear intact. There is no evidence of Chiari malformation. There are small scattered foci of increased signal in the deep white matter. On diffusion-weighted images there is no evidence of restricted diffusion. The visualized paranasal sinuses demonstrate normal signal voids. The seventh and eighth nerve root complexes are intact. IMPRESSION: Mild changes of chronic microvascular ischemia. Reviewed, Interpreted and Dictated by Praneeth Bernal MD Transcribed by Tara Wagner Authenticated and . [facility]
== END 2023-03-27 23:59 ==
LOC: RAD 07:20
PROVIDERS: PCP Internal Medicine Adolescent Medicine; Visit Provider Internal Medicine Medical Oncology
DX: C34.12 Malignant neoplasm of upper lobe, left bronchus or lung (principal); Z72.0 Tobacco use
CPT/HCPCS: 70551

== ENCOUNTER 2023-04-24 15:31 | Observation (INO) | payer BC, SELFPAY ==
[2023-04-24] VITALS (9 sets, daily range): BP systolic 90–163; BP diastolic 56–98; PULSE 91–122; RESP 18–26; TEMP 36.6–37.2; O2SAT 92–96; BMI 17.2; BMI 17.4
--- NOTE | 2023-04-24 15:39 | ECG_ITS ---
APPROVED REPORT Exam: Resting ECG HR:126 bpm ECG Measurements Heart Rate [address] 184 P 80 QRSd 92 QRS -57 QT 283 T 49 QTc 358 Conclusion SINUS TACHYCARDIA WITH OCCASIONAL SUPRAVENTRICULAR PREMATURE COMPLEXES INFERIOR MYOCARDIAL INFARCTION , OF INDETERMINATE AGE [40+ ms Q WAVE AND/OR ST/T ABNORMALITY IN II/aVF] ANTEROSEPTAL MYOCARDIAL INFARCTION , OF INDETERMINATE AGE [40+ ms Q WAVE IN V1-V4] ABNORMAL ECG UNCONFIRMED REPORT Electronically signed by : Mk Reagan MD 04/25/2023 12:35:47
--- NOTE | 2023-04-24 16:23 | PC.NURSE ---
DR BASILIO AT BEDSIDE
--- NOTE | 2023-04-24 16:26 | PC.NURSE ---
RESPIRATORY NOTIFIED OF [facility]
--- NOTE | 2023-04-24 16:27 | XR_ITS ---
PROCEDURE INFORMATION: Exam: XR Chest Exam date and time: 04/24/2023 4:54 PM Age: 67 years old Clinical indication: Shortness of breath; Additional info: SOA x few days. Lung cancer. Lifelong smoker TECHNIQUE: Imaging protocol: Radiologic exam of the chest. Views: 2 views. COMPARISON: CR XR CHEST PORTABLE 03/09/2023 2:07 PM FINDINGS: Lungs: Mass like spiculated opacity in the AP window region is slightly more prominent. Linear densities extend out radially from this region are as before. Subtle opacity overlying the right mid lung appears increased in size and conspicuity. Minor bibasilar opacities are less prominent on current exam. Flattening of the hemidiaphragms and increase in the AP diameter of the chest suggest COPD. Pleural spaces: No pleural effusions. Negative for pneumothorax. Heart/Mediastinum: Cardiac silhouette and pulmonary vasculature are within range of normal. Bones/joints: There is no evidence of acute fracture. The thoracic spine demonstrates mild degenerative changes at multiple levels. There is mild diffuse osteopenia. IMPRESSION: 1. Previously seen mass-like spiculated opacity in the AP window region is slightly more conspicuous. 2. Hazy opacity overlying the right mid lung appears increased. 3. Bibasilar opacities appear less prominent when compared with prior study. 4. Stable COPD.
[2023-04-24 16:32] LABS: VBG Base Excess 2.2 mmol/L (-2.4-2.3); VBG HCO3 26.8 mmol/L (23-30); VBG PCO2 42.9 mmol/L (35-51); VBG PH 7.41 mmol/L (7.31-7.41); VBG PO2 66.5 mmol/L (28-40); VBG Total CO2 28.1 mmol/L (23-27)
[2023-04-24 16:33] LABS: Coronavirus 19, PCR Not Detected (NotDetected); Influenza A, PCR Not Detected (NotDetected); Influenza B, PCR Not Detected (NotDetected)
[2023-04-24] MEDS: ACETAMINOPHEN 500MG TAB 1000 MG PO (16:35)
[2023-04-24 16:36] LABS: Basophils % 0.3 % (0.1-2.0); Eosinophils % 0.2 % (0.1-12.0); Hematocrit 41.4 % (37.0-47.0); Lymphocytes # 0.4 K/mm3 (0.7-4.5); Lymphocytes % 5.7 % (10-50); Mean Corpuscular HGB Conc 31.5 g/dL (31.8-35.4); Mean Corpuscular Hemoglobin 27.5 pg (27.0-31.2); Mean Corpuscular Volume 87.5 fl (81-99); Mean Platelet Volume 8.5 fl (7.4-10.4); Monocytes # 0.6 K/mm3 (0.1-1.0); Monocytes % 9.2 % (1.7-9.3); Neutrophils # 5.9 K/mm3 (1.8-7.8); Neutrophils % 84.6 % (37.0-80.0); Platelet Count 321 K/mm3 (142-424); Red Blood Count 4.73 M/mm3 (4.20-5.40); Red Cell Distribution Width 15.9 % (11.5-17.5)
[2023-04-24] MEDS: RINGERS SOLUTION,LACTATED 500 ML 999 ML IV (16:36)
[2023-04-24] MEDS: IPRATROPIUM/ALBUTEROL 3 ML NEB IH (16:36)
[2023-04-24 16:43] LABS: Alanine Aminotransferase 18 U/L (12-78); Albumin Level 4.2 g/dl (3.5-5.0); Albumin/Globulin Ratio 1.2 (1.1-1.8); Alkaline Phosphatase 102 U/L (38-126); Anion Gap 12.2 mEq/L (5-15); Aspartate Amino Transferase 31 U/L (14-36); Bilirubin,Total 0.4 mg/dl (0.2-1.3); Blood Urea Nitrogen 9 mg/dl (7-17); Calcium 9.4 mg/dl (8.4-10.2); Carbon Dioxide 28 mmol/L (22.0-30.0); Chloride 91 mmol/L (98-107); Creatinine Clearance Estimated 36 mL/min (50-200); Estimated Glomerular Filt Rate 123 ml/min (>60); GFR (African American) 149 ML/MIN (>60); Globulin 3.6 g/dL (1.3-3.2); Glucose 98 mg/dl (74-100); Potassium 4.2 mmoL/L (3.5-5.1); Sodium 127 mmol/L (136-145); Total Protein,Serum 7.8 g/dl (6.3-8.2)
[2023-04-24 16:45] LABS: Creatine Kinase < 20 U/L (30-135)
--- NOTE | 2023-04-24 17:12 | ED_ITS ---
Discharge Plan Disposition Patient Disposition: Admitted Condition: Fair Clinical Impressions Clinical Impression: Right middle lobe pneumonia Discharge ED Provider: Zahraa Lima General Adult HPI General Chief complaint: Shortness of Breath/Dyspnea Stated complaint: SOA, fever Time Seen by Provider: 04/24/23 16:05 Mode of Arrival: Ambulatory Source of Information: Patient Limitations: No Limitations Description of Symptoms (Recalled from ER Triage Doc. by RN): PT REPORTS INCREASED SHORTNESS OF BREATH, COUGH AND FEVER. PT CURRENTLY RECEIVING RADIATION FOR LUNG CA. PT WEARING O2 AT 3L/NC. HAS WORN INTERMITTENTLY SINCE HAVING PNEUMONIA IN JANUARY History of Present Illness HPI narrative: 67-year-old female with previous medical history of lung cancer on radiation therapy not on chemo, admission for pneumonia 2 months ago, coronary artery dis ease presents with 2 days of progressive cough, shortness of breath, fever to 101 ?F. Patient states that over the past 2 days she has had gradually worsening cough and today it has been almost constant. She feels like phlegm is stuck in her chest or her throat. Today she had a fever to 101 ?F and began to have body aches and reduced appetite. No hemoptysis. No chest pain aside from chest tightness when coughing. Related Data Home Medications Medication Instructions Recorded Confirmed tiotropium 2.5 mcg-olodaterol 2.5 2 puff inhalation DAILY Breathing 01/27/23 04/24/23 mcg/actuation mist for inhalation Problems (Stiolto Respimat) Previous Rx's Medication Instructions Recorded L.acidophilus-L.paracasei-B.bifidum-S.thermophl 1 cap PO DAILY #0 caps 03/01/23 8 billion cell capsule (RisaQuad) ipratropium bromide 0.02 % 0.5 mg (2.5 mL) inhalation Q6RT 30 03/01/23 solution for inhalation days #300 mL levalbuterol HCl 1.25 mg/3 mL 1.25 mg (3 mL) inhalation Q6RT 30 03/01/23 solution for nebulization days #360 mL Allergies Allergy/AdvReac Type Severity Reaction Status Date / Time diazepam AdvReac Severe Vomiting Verified 03/25/23 11:29 aspirin AdvReac Other Verified 03/25/23 11:29 PFSH [facility] Disclaimer: The information contained in this section may have been updated after the patient was seen, as this information can be updated by other users. Medical History Acute and chronic respiratory failure with hypoxia Acute hypoxemic respiratory failure Anxiety Atrial fibrillation with RVR Cancer Heart attack Hemoptysis Hilar lymphadenopathy History of lung cancer in adulthood Lung cancer Migraine Nodule of right lung NSCLC of left lung Orthopnea Primary lung cancer Pulmonary emphysema Smoking greater than 30 pack years Stenosis of carotid artery Tooth abscess Surgical History History of bladder surgery History of heart artery stent History of hysterectomy Family History Other Cancer Heart attack Hypertension Stroke Social History Smoking Status: Current every day smoker tobacco type: cigarettes packs per day: 1 alcohol intake: never substance use type: denies use current occupational status: other Travel in the last 8 weeks: None ROS Obtained: Yes All systems reviewed & no additional complaints except as documented Physical Exam General General appearance: alert, in no apparent distress and cachectic Comment: Frequent dry coughing. Head Head exam: atraumatic, normocephalic and normal inspection Eye Eye exam: Present normal appearance, PERRL and EOMI ENT ENT exam: Present normal exam, normal oropharynx, mucous membranes moist, TM's normal bilaterally and normal external ear exam Neck Neck exam: Present normal inspection, full ROM and trachea midline; Absent m eningismus or lymphadenopathy Chest Chest inspection: Present normal inspection and symmetric chest wall rise; Absent tenderness Respiratory Respiratory exam: Present prolonged expiratory phase; Absent respiratory distress, wheezes or stridor Cardiovascular Cardiovascular exam: Present regular rate and normal rhythm; Absent JVD Abdominal Exam Abdominal exam: Present soft and normal bowel sounds; Absent distention, tenderness or guarding Extremities Exam Extremities exam: Present normal inspection, full ROM and normal capillary refill; Absent calf tenderness Back Exam Back exam: Present normal inspection; Absent tenderness Neurological Exam Neurological exam: Present alert and oriented X3 Psychiatric Psychiatric exam: Present normal affect and normal mood Skin Skin exam: Present warm, dry, intact and normal color Lymphatic Lymphatic Findings: no adenopathy Medical Decision Making Shin Inquiry Pt receiving controlled substance: No Shin was queried for this patient: No Vital Signs: 04/24/23 15:32 04/24/23 15:40 04/24/23 16:18 Temperature 99.0 F Temperature Source Oral Pulse Rate 122 H 114 H Pulse Rate [Apical] 120 H Respiratory Rate 20 Blood Pressure 163/91 H 117/67 Blood Pressure [Right Arm] 163/91 H Blood Pressure Mean Blood Pressure Mean [Right Arm] 115 Blood Pressure Source Blood Pressure Source [Right Arm] Automatic Cuff Blood Pressure Position Blood Pressure Position [Right Arm] Sitting 02 Sat by Pulse Oximetry 95 94 L 94 L Oxygen Delivery Method Nasal Cannula Nasal Cannula Nasal Cannula Oxygen Flow Rate (LPM) 3 3 3 04/24/23 16:30 04/24/23 17:30 04/24/23 18:00 Temperature Temperature Source Pulse Rate 113 H 115 H 104 H Pulse Rate [Apical] Respiratory Rate 22 Blood Pressure 151/76 H 121/62 118/98 H Blood Pressure [Right Arm] Blood Pressure Mean 81 Blood Pressure Mean [Right Arm] Blood Pressure Source Blood Pressure Source [Right Arm] Blood Pressure Position Blood Pressure Position [Right Arm] 02 Sat by Pulse Oximetry 94 L 92 L 96 Oxygen Delivery Method Nasal Cannula Nasal Cannula Oxygen Flow Rate (LPM) 3 3 04/24/23 18:36 04/24/23 18:35 Temperature 98.9 F 98.3 F Temperature Source Oral Oral Pulse Rate 100 H Pulse Rate [Apical] 105 H Respiratory Rate 18 26 H Blood Pressure 90/57 L Blood Pressure [Right Arm] 115/60 Blood Pressure Mean Blood Pressure Mean [Right Arm] 78 Blood Pressure Source Automatic Cuff Blood Pressure Source [Right Arm] Automatic Cuff Blood Pressure Position Sitting Blood Pressure Position [Right Arm] Supine 02 Sat by Pulse Oximetry 94 L Oxygen Delivery Method Nasal Cannula Nasal Cannula Oxygen Flow Rate (LPM) 3 2 Lab Data Lab Results 04/24/23 15:43: SARS-CoV-2 (PCR) Not detected, Influenza A Untype (PCR) Not detected, Influenza Type B (PCR) Not detected 04/24/23 15:51: WBC 7.0, RBC 4.73, Hgb 13.0, Hct 41.4, MCV 87.5, MCH 27.5, MCHC 31.5 L, RDW 15.9, Plt Count 321, MPV 8.5, Neut % (Auto) 84.6 H, Lymph % (Auto) 5.7 L, [place] % (Auto) 9.2, Eos % (Auto) 0.2, Baso % (Auto) 0.3, Neut # (Auto) 5.9, Lymph # (Auto) 0.4 L, [place] # (Auto) 0.6, Eos # (Auto) 0.0, Baso # (Auto) 0.0, Sodium 127 L, Potassium 4.2, Chloride 91 L, Carbon Dioxide 28, Anion Gap 12.2, BUN 9, Creatinine 0.50 L, Estimated Creat Clear 36, Estimated GFR 123, Est GFR ( Amer) 149, Glucose 98, Calcium 9.4, Total Bilirubin 0.4, AST 31, ALT 18, Alkaline Phosphatase 102, Total Creatine Kinase < 20 L, Total Protein 7.8 D, Albumin 4.2, Globulin 3.6 H, Albumin/Globulin Ratio 1.2 04/24/23 16:26: VBG pH 7.41, VBG pCO2 42.9, VBG pO2 66.5 H, VBG HCO3 26.8, VBG Total CO2 28.1 H, VBG O2 Saturation 93.0 H, VBG Base Excess 2.2 04/24/23 15:51 04/24/23 15:51 Orders (Tests/Meds): ED MEDICATIONS Generic Name Dose Route Start Last Admin Trade Name Seeq PRN Reason Stop Dose Admin Acetaminophen 650 mg 04/24/23 18:22 Acetaminophen 325mg Tab PO 05/24/23 18:21 Q4HP PRN Fever or Mild Pain (1-3) Enoxaparin Sodium 40 mg 04/25/23 09:00 Enoxaparin 40mg/0.4ml Syringe SQ 05/25/23 08:59 DAILY CY Levofloxacin/Dextrose 750 mg in 150 mls @ 100 mls/hr 04/24/23 19:15 04/24/23 19:43 Levofloxacin 750mg/150ml Premix IV 05/04/23 19:14 100 mls/hr Q24H CY Administration Ipratropium [place] 0.5 mg 04/25/23 00:00 Ipratropium [place] 0.5 Mg/2.5ml Solution 05/25/23 00:00 Q6RT CY Levalbuterol HCl 1.25 mg 04/25/23 00:00 Levalbuterol 1.25mg/3ml Neb 05/25/23 00:00 Q6RT [facility] Morphine Sulfate 2 mg 04/24/23 19:45 04/24/23 20:13 Morphine 2mg/Ml Syringe IV 05/24/23 19:44 2 mg Q4HP PRN Administration Severe Pain (7-10) Non-Formulary Medication 2 puff 04/25/23 09:00 Tiotropium-Olodaterol [Stiolto Respimat] 05/25/23 08:59 DAILY [facility] Sodium Chloride 3 ml 04/24/23 19:54 Sodium Chloride 3% 15ml [facility] 05/24/23 19:53 ONCE PRN INDUCE SPUTUM COLLECTION Discontinued Medications Generic Name Dose Route Start Last Admin Trade Name Freq PRN Reason Stop Dose Admin Acetaminophen 1,000 mg 04/24/23 16:25 04/24/23 16:35 Acetaminophen 500mg Tab PO 04/24/23 16:26 1,000 mg ONCE ONE Administration Albuterol/Ipratropium 3 ml 04/24/23 16:25 04/24/23 16:36 Ipratropium/Albuterol 3 Ml [facility] 04/24/23 16:26 3 ml ONCE ONE Administration Lactated Ringer's 500 mls @ 999 mls/hr 04/24/23 16:28 04/24/23 16:36 Lactated Ringer's 500ml IV 04/24/23 16:58 999 mls/hr .Q31M ONE Administration ORDERS Category Date Time Status Chest XR 2 view (NOT portable) [XR chest 2V] Stat Exams 04/24/23 16:27 Completed CBC [Complete Blood Count Auto Diff] Stat Lab 04/24/23 15:51 Completed CK [Creatine Kinase] Stat Lab 04/24/23 15:51 Completed CMP [Comprehensive Metabolic Panel] Stat Lab 04/24/23 15:51 Completed Complete Blood Count Auto Diff [facility] Lab 04/25/23 06:00 Ordered Comprehensive Metabolic Panel [facility] Lab 04/25/23 06:00 Ordered Magnesium [facility] Lab 04/25/23 06:00 Ordered Rapid PCR Covid and Flu A/B Stat Lab 04/24/23 15:43 Completed VBG [Venous Blood Gas] Stat RT 04/24/23 16:26 Completed ECG initial [place]on Routine Y 04/24/23 15:39 Completed ECG Data Tracing #1: I reviewed this ECG and interpreted as documented below: Mildly tachycardic rate, regular rhythm, no significant ST segment elevations, sinus tachycardia. Medical Decision Narrative: Consider multiple causes of patient's cough, fever, shortness of breath, body aches, including pneumonia, heart failure, COPD exacerbation, worsening lung cancer, radiation effect such as pneumonitis, malignant pleural effusion, pneumothorax, among others. On arrival patient was hypoxic so was placed on 3 L nasal cannula which she did continue to require. She variably uses oxygen at home but typically does not have to use oxygen while awake. Gave DuoNeb and Tylenol and 500 mL LR bolus. For this reason obtain laboratory evaluation and 2 view chest x-ray. Labs I independently reviewed and interpreted were significan t for normal leukocytes. No significant anemia. No significant abnormalities of CMP. Chest x-ray independently reviewed and interpreted showed mild right- sided hazy opacities concerning for pneumonia.. Discussed with patient and she is amenable to admission. Consulted hospital medicine who agreed to evaluate patient for admission and stated they would initiate antibiotic regimen. Patient remained stable on 3 L nasal cannula until time of admission. Critical Care Critical Care Time Critical Care Time: No
--- NOTE | 2023-04-24 17:22 | PC.NURSE ---
PT PROVIDED A PILLOW, NO NEEDS AT THIS TIME. CALL LIGHT WITHIN REACH
--- NOTE | 2023-04-24 18:12 | PC.NURSE ---
rounded on pt family at bs states pt is still in pain relayed message to
--- NOTE | 2023-04-24 18:35 | INFXCTL.NOTE ---
REPORT CALLED TO MK DE PAZ
--- NOTE | 2023-04-24 18:48 | PC.NURSE ---
arrived by w/c from ED
--- NOTE | 2023-04-24 19:33 | EXP.HP ---
History of Present Illness *Admission Date: 04/24/23 *Reason for visit:: cough and fever *History of present illness: This is a 67-year-old female current smoker with PMHx of squamous cell carcinoma of the lung, recently started on radiation therapy , previous admission for pneumonia 2 months ago, coronary artery disease presents with 2 days of progressive cough, shortness of breath, fever to 101 ?F. Patient stated that over the past 2 days she has had gradually worsening cough and today it has been almost constant. Patient also reported she had a fever to 101 ?F and began to have body aches and reduced appetite. No hemoptysis. No chest pain aside from chest tightness when coughing. patient does not wear permanent oxygen at home. Admitted for treatment. [facility] Disclaimer: The information contained in this section may have been updated after the patient was seen, as this information can be updated by other users. Medical History Acute and chronic respiratory failure with hypoxia Acute hypoxemic respiratory failure Anxiety Atrial fibrillation with RVR Cancer Heart attack Hemoptysis Hilar lymphadenopathy History of lung cancer in adulthood Lung cancer Migraine Nodule of right lung NSCLC of left lung Orthopnea Primary lung cancer Pulmonary emphysema Smoking greater than 30 pack years Stenosis of carotid artery Tooth abscess Surgical History History of bladder surgery History of heart artery stent History of hysterectomy Family History Other Cancer Heart attack Hypertension Stroke Social History Smoking Status: Current every day smoker tobacco type: cigarettes packs per day: 1 alcohol intake: never substance use type: denies use current occupational status: other Travel in the last 8 weeks: None Review of Systems Review of Systems Review of systems:: pertinent systems reviewed and negative unless documented below Meds Home Medications and Allergies Home Medications Medication Instructions Recorded Confirmed Type tiotropium 2.5 mcg-olodaterol 2.5 2 puff inhalation DAILY Breathing 01/27/23 04/24/23 History mcg/actuation mist for inhalation Problems (Stiolto Respimat) L.acidophilus-L.paracasei-B.bifidum-S.thermophl 1 cap PO DAILY #0 caps 03/01/23 04/24/23 Rx 8 billion cell capsule (RisaQuad) ipratropium bromide 0.02 % 0.5 mg (2.5 mL) inhalation Q6RT 30 03/01/23 04/24/23 Rx solution for inhalation days #300 mL levalbuterol HCl 1.25 mg/3 mL 1.25 mg (3 mL) inhalation Q6RT 30 03/01/23 04/24/23 Rx solution for nebulization days #360 mL New Prescriptions to Start Prescriptions: Allergies Allergy/AdvReac Type Severity Reaction Status Date / Time diazepam AdvReac Severe Vomiting Verified 03/25/23 11:29 aspirin AdvReac Other Verified 03/25/23 11:29 Exam Data for Last 24 hours Vital signs and Labs for Last 24 Hours: Temp Pulse Resp BP Pulse Ox O2 Del Method O2 Flow Rate 98.9 F 100 H 18 90/57 L 94 L Nasal Cannula 3 04/24/23 18:36 04/24/23 18:36 04/24/23 18:36 04/24/23 18:36 04/24/23 18:35 04/24/23 18:36 04/24/23 18:36 Laboratory Results - last 24 hr 04/24/23 15:43: SARS-CoV-2 (PCR) Not detected, Influenza A Untype (PCR) Not detected, Influenza Type B (PCR) Not detected 04/24/23 15:51: WBC 7.0, RBC 4.73, Hgb 13.0, Hct 41.4, MCV 87.5, MCH 27.5, MCHC 31.5 L, RDW 15.9, Plt Count 321, MPV 8.5, Neut % (Auto) 84.6 H, Lymph % (Auto) 5.7 L, [place] % (Auto) 9.2, Eos % (Auto) 0.2, Baso % (Auto) 0.3, Neut # (Auto) 5.9, Lymph # (Auto) 0.4 L, [place] # (Auto) 0.6, Eos # (Auto) 0.0, Baso # (Auto) 0.0, Sodium 127 L, Potassium 4.2, Chloride 91 L, Carbon Dioxide 28, Anion Gap 12.2, BUN 9, Creatinine 0.50 L, Estimated Creat Clear 36, Estimated GFR 123, Est GFR ( Amer) 149, Glucose 98, Calcium 9.4, Total Bilirubin 0.4, AST 31, ALT 18, Alkaline Phosphatase 102, Total Creatine Kinase < 20 L, Total Protein 7.8 D, Albumin 4.2, Globulin 3.6 H, Albumin/Globulin Ratio 1.2 04/24/23 16:26: VBG pH 7.41, VBG pCO2 42.9, VBG pO2 66.5 H, VBG HCO3 26.8, VBG Total CO2 28.1 H, VBG O2 Saturation 93.0 H, VBG Base Excess 2.2 I & O for Last 24 hours: Intake & Output 04/21/23 04/22/23 04/23/23 04/24/23 23:59 23:59 23:59 23:59 Weight 41.759 kg Constitutional Constitutional: mild distress, cachectic and chronically ill appearing *Routine HEENT Exam Head: Present normocephalic Eye: Present EOMI and PERRL ENT: Present mucous membranes moist *Routine Neck Exam Neck: Present supple; Absent lymphadenopathy *Routine Respiratory Exam Respiratory: Present prolonged expiratory phase, wheezes, crackles (Right lung field posterior lower lobe) and normal respiratory effort; Absent rhonchi *Routine Cardiovascular Exam Cardiovascular: Present tachycardia *Routine Abdominal Exam Abdominal: Present soft and normoactive bowel sounds; Absent tenderness *Routine Rectal Exam Rectal:: deferred *Routine Genitalia Exam Genitalia:: deferred *Routine Extremities Exam Extremities: Absent cyanosis, clubbing or edema *Routine Skin Exam Skin: Present warm; Absent rash *Routine Neurological Exam Neurological: Present alert, oriented X3 and moving all extremities; Absent altered mental status H&P: Result Imaging and Cardiology EKG: Status: image reviewed by me and Preliminary report Chest x-ray: Status: image reviewed by me, Preliminary report and final report Assessment and Plan *Assessment and plan (1) Acute and chronic respiratory failure with hypoxia: Status: Acute Category: Medical Code(s): J96.21 - Acute and chronic respiratory failure with hypoxia (2) Right middle lobe pneumonia: Status: Acute Qualifiers: Pneumonia type: due to unspecified organism Qualified Code(s): J18.9 - Pneumonia, unspecified organism Category: Medical Code(s): J18.9 - Pneumonia, unspecified organism (3) Primary lung cancer: Status: Acute Qualifiers: Laterality: right Qualified Code(s): C34.91 - Malignant neoplasm of unspecified part of right bronchus or lung Category: Medical Code(s): C34.90 - Malignant neoplasm of unspecified part of unspecified bronchus or lung (4) Hilar lymphadenopathy: Status: Acute Category: Medical Code(s): R59.0 - Localized enlarged lymph nodes (5) Pulmonary emphysema: Status: Acute Qualifiers: Emphysema type: centrilobular Qualified Code(s): J43.2 - Centrilobular emphysema Category: Medical Code(s): J43.9 - Emphysema, unspecified Plan Patient is a 67-year-old female who presents to the with worsening productive cough and shortness of breath. Workup in the ER concerning for pneumonia. Discussed case with ER physician, request admission for antibiotics and further management. Medicine agreed to admit for further management. Pulmonology consulted, will see patient in the morning. Problems addressed as follows: Acute on chronic hypoxemic respiratory failure Secondary to pneumonia non-small cell lung cancer second primary lung cancer hilar lmphadenopathy pulmonary emphysema -Antibiotics with Levaquin. Awaiting sputum culture. previous sputum culture showing light growth of gram-positive cocci and rods. -Repeat CBC, CMP, magnesium ordered for the morning - Continue DuoNebs every 6 hours scheduled -Supplemental oxygen as needed, goal saturation greater 90%. Requiring 1 to 4 L throughout the day -Continue incentive spirometry -continue home Stiolto. - continue probiotic Hx of CAD current smoker on Nicotine patch as needed Full code Cardiac diet Lovenox 40 mg daily Rounded on patient after nurse practitioner. Personally examined and interviewed patient. Agree with exam findings and care plan as documented.
[2023-04-24] MEDS: LEVOFLOXACIN/D5W 750 MG/150 ML 750 MG/150 ML PIGGYBACK 100 MG IV (19:43)
[2023-04-24] MEDS: MORPHINE 2MG/ML SYRINGE 2 MG IV (20:13)
[2023-04-25] MEDS: MORPHINE 2MG/ML SYRINGE 2 MG IV ×2 (02:59→11:43)
[2023-04-25 04:00] VITALS: BP 139/77; PULSE 98; RESP 18; TEMP 37.5; O2SAT 94; BMI 17.7
--- NOTE | 2023-04-25 05:12 | PC.NURSE ---
c/o pain t/o shift, tx per APR. consistent cough, on 2LNC. refused breathing tx.
[2023-04-25 08:00] VITALS: BP 148/78; PULSE 99; RESP 20; TEMP 36.6; O2SAT 92
[2023-04-25 08:12] LABS: Chloride 90 mmol/L (98-107); Sodium 124 mmol/L (136-145)
[2023-04-25 08:13] LABS: Potassium 4.5 mmoL/L (3.5-5.1)
[2023-04-25 08:15] LABS: Alanine Aminotransferase 15 U/L (12-78); Albumin Level 3.6 g/dl (3.5-5.0); Albumin/Globulin Ratio 1.2 (1.1-1.8); Alkaline Phosphatase 87 U/L (38-126); Anion Gap 5.5 mEq/L (5-15); Aspartate Amino Transferase 31 U/L (14-36); Bilirubin,Total 0.2 mg/dl (0.2-1.3); Blood Urea Nitrogen 8 mg/dl (7-17); Calcium 8.5 mg/dl (8.4-10.2); Carbon Dioxide 33 mmol/L (22.0-30.0); Creatinine Clearance Estimated 37 mL/min (50-200); Estimated Glomerular Filt Rate 123 ml/min (>60); GFR (African American) 149 ML/MIN (>60); Globulin 3.1 g/dL (1.3-3.2); Glucose 79 mg/dl (74-100); Total Protein,Serum 6.7 g/dl (6.3-8.2)
[2023-04-25 08:16] LABS: Magnesium 1.5 mg/dl (1.6-2.3)
--- NOTE | 2023-04-25 08:18 | PC.NURSE ---
Patients room air was 85 at rest.
[2023-04-25 08:39] LABS: Basophils % 0.1 % (0.1-2.0); Eosinophils % 0.1 % (0.1-12.0); Hematocrit 37.5 % (37.0-47.0); Hemoglobin 11.8 g/dL (12.2-16.2); Lymphocytes # 0.4 K/mm3 (0.7-4.5); Lymphocytes % 6.4 % (10-50); Mean Corpuscular HGB Conc 31.4 g/dL (31.8-35.4); Mean Corpuscular Hemoglobin 27.3 pg (27.0-31.2); Mean Corpuscular Volume 86.8 fl (81-99); Mean Platelet Volume 9.1 fl (7.4-10.4); Monocytes # 0.6 K/mm3 (0.1-1.0); Monocytes % 9.7 % (1.7-9.3); Neutrophils # 5.3 K/mm3 (1.8-7.8); Neutrophils % 83.7 % (37.0-80.0); Platelet Count 287 K/mm3 (142-424); Red Blood Count 4.32 M/mm3 (4.20-5.40); Red Cell Distribution Width 15.8 % (11.5-17.5); White Blood Count 6.3 K/mm3 (4.8-10.8)
[2023-04-25] MEDS: ENOXAPARIN 40MG/0.4ML SYRINGE 40 MG SQ (08:44)
[2023-04-25] MEDS: SODIUM CHLORIDE 1,000MG TABLET 500 MG PO ×2 (08:44→20:17)
[2023-04-25 09:44] LABS: Adenovirus,PCR Not Detected (NotDetected); Coronavirus 19, PCR Not Detected (NotDetected); Coronavirus 229E Not Detected (NotDetected); Coronavirus NL63 Not Detected (NotDetected); Coronavirus OC43 Not Detected (NotDetected); Coronovirus HKU1,PCR Not Detected (NotDetected); Human Metapneumovirus Not Detected (NotDetected); Influenza A, PCR Not Detected (NotDetected); Influenza AH1, 2009 Not Detected (NotDetected); Influenza AH1, PCR Not Detected (NotDetected); Influenza AH3,PCR Not Detected (NotDetected); Influenza B, PCR Not Detected (NotDetected); Parainfluenza 1, PCR Not Detected (NotDetected); Parainfluenza 2, PCR Not Detected (NotDetected); Parainfluenza 3, PCR Not Detected (NotDetected); Parainfluenza 4, PCR Not Detected (NotDetected); Respiratory Syncytial Virus Not Detected (NotDetected); Rhinovirus/Enterovirus Not Detected (NotDetected)
[2023-04-25] MEDS: LEVALBUTEROL 1.25MG/3ML NEB 1.25 MG IH ×2 (10:57→18:15)
[2023-04-25] MEDS: IPRATROPIUM BROMIDE 0.5 MG/2.5ML SOLUTION IH ×2 (10:57→18:15)
[2023-04-25 10:58] VITALS: PULSE 77; PULSE 80; O2SAT 89
[2023-04-25] MEDS: METHYLPREDNISOLONE SOD SUCC 125MG VIAL 125 MG IV (11:40)
--- NOTE | 2023-04-25 11:52 | P.PN_ITS ---
Subjective *Date: 04/25/23 *Time: 12:19 Interval history: Patient complains of pain that radiates to her ears when she coughs. Denies any nausea or vomiting. Cough and symptoms began after initiating radiation therapy the beginning of this past week. Continues to require 2 L nasal cannula oxygen. Afebrile. Cough nonproductive. Medical Exam Vital signs and Labs for Last 24 Hours: Vital Signs Temp Pulse Pulse Resp BP BP Pulse Ox 04/25/23 10:58 80 04/25/23 10:58 77 04/25/23 10:58 89 L 04/25/23 09:00 04/25/23 08:00 04/25/23 08:00 97.9 F 99 H 20 148/78 H 92 L 04/25/23 04:00 99.5 F 98 H 18 139/77 94 L 04/25/23 06:19 04/25/23 05:00 04/25/23 03:00 04/25/23 01:00 04/24/23 23:00 04/24/23 20:00 97.8 F 91 H 18 106/56 L 95 04/24/23 20:20 04/24/23 20:00 04/24/23 18:35 98.3 F 105 H 26 H 115/60 94 L 04/24/23 18:36 98.9 F 100 H 18 90/57 L 04/24/23 18:00 104 H 118/98 H 96 04/24/23 17:30 115 H 22 121/62 92 L 04/24/23 16:30 113 H 151/76 H 94 L 04/24/23 16:18 114 H 117/67 94 L 04/24/23 15:40 122 H 163/91 H 94 L 04/24/23 15:32 99.0 F 120 H 20 163/91 H 95 O2 Del Method O2 Flow Rate 04/25/23 10:58 04/25/23 10:58 04/25/23 10:58 Nasal Cannula 2 04/25/23 09:00 Nasal Cannula 2 04/25/23 08:00 Nasal Cannula 2 04/25/23 08:00 Nasal Cannula 04/25/23 04:00 Nasal Cannula 2 04/25/23 06:19 Nasal Cannula 2 04/25/23 05:00 Nasal Cannula 5 04/25/23 03:00 Nasal Cannula 2 04/25/23 01:00 Nasal Cannula 2 04/24/23 23:00 Nasal Cannula 2 04/24/23 20:00 Nasal Cannula 2 04/24/23 20:20 Nasal Cannula 2 04/24/23 20:00 Nasal Cannula 2 04/24/23 18:35 Nasal Cannula 2 04/24/23 18:36 Nasal Cannula 3 04/24/23 18:00 Nasal Cannula 3 04/24/23 17:30 04/24/23 16:30 Nasal Cannula 3 04/24/23 16:18 Nasal Cannula 3 04/24/23 15:40 Nasal Cannula 3 04/24/23 15:32 Nasal Cannula 3 Intake and Output 04/24/23 04/25/23 04/25/23 23:59 07:59 15:59 Intake Total 420 / 780 360 / 780 Output Total 0 / 0 0 / 0 Balance 420 / 780 360 / 780 Intake: Intake, Oral Amount 240 / 600 360 / 600 Intake, Other Amount 30 / 30 Intake, Total IV Amount 150 / 150 Levofloxacin/D5w 750 mg/150 ml 150 / 150 750 mg In 150 ml @ 100 mls/hr IV Q24H [facility] Rx#:[id number] Output: Output, Urine Amount 0 / 0 0 / 0 Other: Number of Voids 0 Number of Unmeasured Voids 1 Weight 41.759 kg 42.638 kg Patient Weight 04/25/23 23:59 Weight 42.638 kg Laboratory Results - last 24 hr 04/24/23 09:40: Chlamy pneumoniae PCR TNP, Adenovirus (PCR) Not detected, B. pertussis DNA (PCR) TNP, Coronavirus OC43 (PCR) Not detected, Coronavirus HKU1 (PCR) Not detected, Coronavirus 229E (PCR) Not detected, SARS-CoV-2 (PCR) Not detected, Coronavirus NL63 (PCR) Not detected, Human Metapneumovir PCR Not detected, Influenza A (H1) PCR Not detected, Influ A (H1N1/09) PCR Not detected, Influenza A (H3) PCR Not detected, Influenza Type A (PCR) Not detected, Influenza Type B (PCR) Not detected, M. pneumoniae (PCR) TNP, Parainfluenza 1 (PCR) Not detected, Parainfluenza 2 (PCR) Not detected, Parainfluenza 3 (PCR) Not detected, Parainfluenza 4 (PCR) Not detected, RSV (PCR) Not detected, Entero/Rhino (PCR) Not detected 04/24/23 15:43: SARS-CoV-2 (PCR) Not detected, Influenza A Untype (PCR) Not detected, Influenza Type B (PCR) Not detected 04/24/23 15:51: WBC 7.0, RBC 4.73, Hgb 13.0, Hct 41.4, MCV 87.5, MCH 27.5, MCHC 31.5 L, RDW 15.9, Plt Count 321, MPV 8.5, Neut % (Auto) 84.6 H, Lymph % (Auto) 5.7 L, [place] % (Auto) 9.2, Eos % (Auto) 0.2, Baso % (Auto) 0.3, Neut # (Auto) 5.9, Lymph # (Auto) 0.4 L, [place] # (Auto) 0.6, Eos # (Auto) 0.0, Baso # (Auto) 0.0, Sodium 127 L, Potassium 4.2, Chloride 91 L, Carbon Dioxide 28, Anion Gap 12.2, BUN 9, Creatinine 0.50 L, Estimated Creat Clear 36, Estimated GFR 123, Est GFR ( Amer) 149, Glucose 98, Calcium 9.4, Total Bilirubin 0.4, AST 31, ALT 18, Alkaline Phosphatase 102, Total Creatine Kinase < 20 L, Total Protein 7.8 D, Albumin 4.2, Globulin 3.6 H, Albumin/Globulin Ratio 1.2 04/24/23 16:26: VBG pH 7.41, VBG pCO2 42.9, VBG pO2 66.5 H, VBG HCO3 26.8, VBG Total CO2 28.1 H, VBG O2 Saturation 93.0 H, VBG Base Excess 2.2 04/25/23 06:39: WBC 6.3, RBC 4.32, Hgb 11.8 L, Hct 37.5, MCV 86.8, MCH 27.3, MCHC 31.4 L, RDW 15.8, Plt Count 287, MPV 9.1, Neut % (Auto) 83.7 H, Lymph % (Auto) 6.4 L, [place] % (Auto) 9.7 H, Eos % (Auto) 0.1, Baso % (Auto) 0.1, Neut # (Auto) 5.3, Lymph # (Auto) 0.4 L, [place] # (Auto) 0.6, Eos # (Auto) 0.0, Baso # (Auto) 0.0, Sodium 124 L, Potassium 4.5, Chloride 90 L, Carbon Dioxide 33 H, Anion Gap 5.5, BUN 8, Creatinine 0.50 L, Estimated Creat Clear 37, Estimated GFR 123, Est GFR ( Amer) 149, Glucose 79, Calcium 8.5, Magnesium 1.5 L, Total Bilirubin 0.2, AST 31, ALT 15, Alkaline Phosphatase 87, Total Protein 6.7, Albumin 3.6 D, Globulin 3.1, Albumin/Globulin Ratio 1.2 I & O for Labs for Last 24 Hours: Intake & Output 04/22/23 04/23/23 04/24/23 04/25/23 23:59 23:59 23:59 23:59 Intake Total 780 / 780 Output Total 0 / 0 Balance 780 / 780 Weight 41.759 kg 42.638 kg Constitutional: Present no acute distress, cachectic and chronically ill appearing Head: Present atraumatic and normocephalic ENT: Present normal exam Respiratory: Present wheezes (minimal bilaterally) and normal respiratory effort; Absent rhonchi or crackles Cardiac: Present Reg Rate and Rhythm GI: Present soft and normal bowel sounds; Absent distention or tenderness Extremities: Present normal inspection and full ROM Skin: Present intact; Absent erythema Neuro: Present Grossly Intact, alert, awake, oriented x 3 and moves all extremities Assessment and Plan *Assessment and plan (1) Acute and chronic respiratory failure with hypoxia: Status: Acute Category: Medical Code(s): J96.21 - Acute and chronic respiratory failure with hypoxia (2) Post-radiation pneumonitis: Status: Acute Category: Medical Code(s): J70.0 - Acute pulmonary manifestations due to radiation (3) Right middle lobe pneumonia: Status: Acute Qualifiers: Pneumonia type: due to unspecified organism Qualified Code(s): J18.9 - Pneumonia, unspecified organism Category: Medical Code(s): J18.9 - Pneumonia, unspecified organism (4) Primary lung cancer: Status: Acute Qualifiers: Laterality: right Qualified Code(s): C34.91 - Malignant neoplasm of unspecified part of right bronchus or lung Category: Medical Code(s): C34.90 - Malignant neoplasm of unspecified part of unspecified bronchus or lung (5) Hilar lymphadenopathy: Status: Acute Category: Medical Code(s): R59.0 - Localized enlarged lymph nodes (6) Pulmonary emphysema: Status: Acute Qualifiers: Emphysema type: centrilobular Qualified Code(s): J43.2 - Centrilobular emphysema Category: Medical Code(s): J43.9 - Emphysema, unspecified Plan Patient is a 67-year-old female who presents to the with worsening productive cough and shortness of breath. Workup in the ER concerning for pneumonia versus pneumonitis. Admitted for treatment of new oxygen requirement. White cell count remains normal at 6.3. Remains afebrile. Having dry nonproductive cough. Continues to require inpatient management. Problems addressed as follows: Acute on chronic hypoxemic respiratory failure Secondary to pneumonia versus radiation-induced pneumonitis non-small cell lung cancer second primary lung cancer hilar lmphadenopathy pulmonary emphysema -Continue antibiotics with Levaquin 750 mg daily. Sputum culture still pending. Anticipate 3 days of treatment if white cell count remains normal -Cough began after initiating radiation, image findings consistent with radiation-induced lung injury versus pneumonia. In setting of normal white count 6, suspect more pneumonitis than actual infection. -Will administer 1 dose Solu-Medrol 125 mg IV x 1 today. Continue prednisone 40 mg daily starting in the morning. Will treat for 10 days. -Repeat CBC, CMP, magnesium ordered for the morning -Continue DuoNebs every 6 hours scheduled -Supplemental oxygen as needed, goal saturation greater 90%. Requiring 2L throughout the day -Continue incentive spirometry -continue home Stiolto. - continue probiotic Hx of CAD current smoker on Nicotine patch as needed Full code Cardiac diet Lovenox 40 mg daily
--- NOTE | 2023-04-25 13:29 | HMH.PHAINT1 ---
Pharmacy Intervention Comments: MEDICATION RECONCILIATION COMPLETED ON PATIENT USING EXTERNAL FILL HISTORY FROM PHARMACY AND DISCHARGE SUMMARY FROM PREVIOUS ADMISSION. -SABINE WILL, MONTYD
[2023-04-25] MEDS: ACETAMINOPHEN 325MG TAB 650 MG PO (14:20)
[2023-04-25 16:00] VITALS: BP 100/52; PULSE 89; RESP 22; O2SAT 97
--- NOTE | 2023-04-25 18:12 | PC.NURSE ---
INTERMITTENT COUGH NOTED. 2LNC FOR O2 SUPPORT. PT DROPS TO MID 80'S ON ROOM AIR. MEDICATED FOR PAIN PER APR WITH TYLENOL AND MORPHINE WITH GOOD EFFECTIVENESS.
[2023-04-25 18:42] VITALS: PULSE 78; PULSE 83
[2023-04-25 20:00] VITALS: BP 150/78; PULSE 91; RESP 20; TEMP 36.4; O2SAT 96
--- NOTE | 2023-04-25 21:22 | PC.NURSE ---
Pt stated that she did not want to be bothered for her nebs or inhaler at MD or 0600. Contacted RT at this time to notify
--- NOTE | 2023-04-26 03:37 | PC.NURSE ---
Pt is alert and oriented x4, and currently sating in the high 90s on 2L of O2. Pt has rested well this shift and has no complaints. Pt bilateral lungs remain diminished. Pt6 has requested that RT not disturb her for the remainder of the night. Pt denies pain and needs at this time
[2023-04-26 04:00] VITALS: BP 141/74; PULSE 84; RESP 18; TEMP 36.6; O2SAT 93; BMI 17.6
--- NOTE | 2023-04-26 07:21 | P.DS_ITS ---
General Admission date:: 04/24/23 Discharge date: 04/26/23 HPI HPI HPI: This is a 67-year-old female current smoker with PMHx of squamous cell carcinoma of the lung, recently started on radiation therapy , previous admission for pneumonia 2 months ago, coronary artery disease presents with 2 days of progressive cough, shortness of breath, fever to 101 ?F. Patient stated that over the past 2 days she has had gradually worsening cough and today it has been almost constant. Patient also reported she had a fever to 101 ?F and began to have body aches and reduced appetite. No hemoptysis. No chest pain aside from chest tightness when coughing. patient does not wear permanent oxygen at home. Admitted for treatment. Hospital Course Hospital Course Hospital Course: Patient is a 67-year-old female who presents to the with worsening productive cough and shortness of breath. Workup in the ER concerning for pneumonia versus pneumonitis. Admitted for treatment of new oxygen requirement. Patient showed clinical improvement during hospitalization. Improvement in pain and dyspnea with initiation of steroids. Stable for discharge home. Already has oxygen at home, recommend continuing if she feels short of breath and especially while she sleeps. Problems addressed during hospitalization as follows: Acute on chronic hypoxemic respiratory failure Secondary to pneumonia versus radiation-induced pneumonitis non-small cell lung cancer second primary lung cancer hilar lmphadenopathy pulmonary emphysema -Admitted for new oxygen requirement and acute on chronic hypoxemic respiratory failure. Concern for pneumonia versus pneumonitis from radiation. White cell count was stable and normal. Initiated on levofloxacin. Found to have a dry nonproductive cough. Initiated on steroids, had improvement in her cough and pain after steroids initiated. Will complete 5-day course of levofloxacin 750 mg every other day, renally dosed. Continue steroids for 10 days total to treat pneumonitis/radiation induced lung injury component. Oxygen as needed. Recommend close follow-up with oncology and radiation this week. Continue breathing treatments per home regimen. Continue home Stiolto. Otherwise stable for discharge. Chest imaging during hospitalization showed hazy patch at location of her radiation therapy and lung cancer. No focal consolidation. Exam relatively benign with no significant crackles. Current smoker: Continue to encourage smoking cessation. Nicotine patch PRN during hospitalization. Spent 30 minutes in discharge counseling, documentation, chart review, and direct care with patient. Exam Data for Last 24 hours Vital signs and Labs for Last 24 Hours: Temp Pulse Resp BP Pulse Ox O2 Del Method O2 Flow Rate 97.9 F 84 18 141/74 H 93 L Nasal Cannula 1.5 04/26/23 04:00 04/26/23 04:00 04/26/23 04:00 04/26/23 04:00 04/26/23 04:00 04/26/23 05:00 04/26/23 05:00 FiO2 28 04/25/23 18:43 Laboratory Results - last 24 hr 04/24/23 09:40: Chlamy pneumoniae PCR TNP, Adenovirus (PCR) Not detected, B. pertussis DNA (PCR) TNP, Coronavirus OC43 (PCR) Not detected, Coronavirus HKU1 (PCR) Not detected, Coronavirus 229E (PCR) Not detected, SARS-CoV-2 (PCR) Not detected, Coronavirus NL63 (PCR) Not detected, Human Metapneumovir PCR Not detected, Influenza A (H1) PCR Not detected, Influ A (H1N1/09) PCR Not detected, Influenza A (H3) PCR Not detected, Influenza Type A (PCR) Not detected, Influenza Type B (PCR) Not detected, M. pneumoniae (PCR) TNP, Parainfluenza 1 (PCR) Not detected, Parainfluenza 2 (PCR) Not detected, Parainfluenza 3 (PCR) Not detected, Parainfluenza 4 (PCR) Not detected, RSV (PCR) Not detected, Entero/Rhino (PCR) Not detected 04/25/23 06:39: WBC 6.3, RBC 4.32, Hgb 11.8 L, Hct 37.5, MCV 86.8, MCH 27.3, MCHC 31.4 L, RDW 15.8, Plt Count 287, MPV 9.1, Neut % (Auto) 83.7 H, Lymph % (Auto) 6.4 L, [place] % (Auto) 9.7 H, Eos % (Auto) 0.1, Baso % (Auto) 0.1, Neut # (Auto) 5.3, Lymph # (Auto) 0.4 L, [place] # (Auto) 0.6, Eos # (Auto) 0.0, Baso # (Auto) 0.0, Sodium 124 L, Potassium 4.5, Chloride 90 L, Carbon Dioxide 33 H, Anion Gap 5.5, BUN 8, Creatinine 0.50 L, Estimated Creat Clear 37, Estimated GFR 123, Est GFR ( Amer) 149, Glucose 79, Calcium 8.5, Magnesium 1.5 L, Total Bilirubin 0.2, AST 31, ALT 15, Alkaline Phosphatase 87, Total Protein 6.7, Albumin 3.6 D, Globulin 3.1, Albumin/Globulin Ratio 1.2 I & O for Last 24 hours: Intake & Output 04/23/23 04/24/23 04/25/23 04/26/23 23:59 23:59 23:59 23:59 Intake Total 1260 / 1500 240 / 240 Output Total 0 / 0 0 / 0 Balance 1260 / 1500 240 / 240 Weight 41.759 kg 42.638 kg 42.439 kg Constitutional Constitutional: no acute distress, thin and chronically ill appearing *Routine HEENT Exam Head: Present normocephalic Eye: Present EOMI and PERRL ENT: Present mucous membranes moist *Routine Neck Exam Neck: Present supple; Absent lymphadenopathy Routine Chest/Breast/Axilla Exam Comments: prominent ribs *Routine Respiratory Exam Respiratory: Present prolonged expiratory phase and wheezes (minimal); Absent rhonchi or crackles *Routine Cardiovascular Exam Cardiovascular: Present RRR *Routine Abdominal Exam Abdominal: Present soft and normoactive bowel sounds; Absent tenderness *Routine Rectal Exam Patient deferred: visual exam *Routine Exam Patient deferred: external exam *Routine Extremities Exam Extremities: Absent cyanosis, clubbing or edema *Routine Skin Exam Skin: Present warm; Absent rash *Routine Neurological Exam Neurological: Present alert, oriented X3 and moving all extremities; Absent altered mental status Routine Psychiatric Exam Psychiatric: Present normal affect, cooperative and good insight Results Data Completed and Pending Labs on day of discharge: Labs from last 24 hours 04/25/23 04/24/23 06:39 09:40 WBC 6.3 RBC 4.32 Hgb 11.8 L Hct 37.5 MCV 86.8 MCH 27.3 MCHC 31.4 L RDW 15.8 Plt Count 287 MPV 9.1 Neut % (Auto) 83.7 H Lymph % (Auto) 6.4 L [place] % (Auto) 9.7 H Eos % (Auto) 0.1 Baso % (Auto) 0.1 Neut # (Auto) 5.3 Lymph # (Auto) 0.4 L [place] # (Auto) 0.6 Eos # (Auto) 0.0 Baso # (Auto) 0.0 Sodium 124 L Potassium 4.5 Chloride 90 L Carbon Dioxide 33 H Anion Gap 5.5 BUN 8 Creatinine 0.50 L Estimated Creat Clear 37 Estimated GFR 123 Est GFR ( Amer) 149 Glucose 79 Calcium 8.5 Magnesium 1.5 L Total Bilirubin 0.2 AST 31 ALT 15 Alkaline Phosphatase 87 Total Protein 6.7 Albumin 3.6 D Globulin 3.1 Albumin/Globulin Ratio 1.2 Chlamy pneumoniae PCR TNP Adenovirus (PCR) Not detected B. pertussis DNA (PCR) TNP Coronavirus OC43 (PCR) Not detected Coronavirus HKU1 (PCR) Not detected Coronavirus 229E (PCR) Not detected SARS-CoV-2 (PCR) Not detected Coronavirus NL63 (PCR) Not detected Human Metapneumovir PCR Not detected Influenza A (H1) PCR Not detected Influ A (H1N1/09) PCR Not detected Influenza A (H3) PCR Not detected Influenza Type A (PCR) Not detected Influenza Type B (PCR) Not detected M. pneumoniae (PCR) TNP Parainfluenza 1 (PCR) Not detected Parainfluenza 2 (PCR) Not detected Parainfluenza 3 (PCR) Not detected Parainfluenza 4 (PCR) Not detected RSV (PCR) Not detected Entero/Rhino (PCR) Not detected DS: Diagnosis Discharge Diagnosis (1) Acute and chronic respiratory failure with hypoxia: Status: Acute Code(s): J96.21 - Acute and chronic respiratory failure with hypoxia (2) Post-radiation pneumonitis: Status: Acute Code(s): J70.0 - Acute pulmonary manifestations due to radiation (3) Right middle lobe pneumonia: Status: Acute Code(s): J18.9 - Pneumonia, unspecified organism Qualifiers: Pneumonia type: due to unspecified organism Qualified Code(s): J18.9 - Pneumonia, unspecified organism (4) Primary lung cancer: Status: Acute Code(s): C34.90 - Malignant neoplasm of unspecified part of unspecified bronchus or lung Qualifiers: Laterality: right Qualified Code(s): C34.91 - Malignant neoplasm of unspecified part of right bronchus or lung (5) Hilar lymphadenopathy: Status: Acute Code(s): R59.0 - Localized enlarged lymph nodes (6) Pulmonary emphysema: Status: Acute Code(s): J43.9 - Emphysema, unspecified Qualifiers: Emphysema type: centrilobular Qualified Code(s): J43.2 - Centrilobular emphysema Meds Home Medications and Allergies Home Medications Medication Instructions Recorded Confirmed Type tiotropium 2.5 mcg-olodaterol 2.5 2 puff inhalation DAILY Breathing 01/27/23 04/25/23 History mcg/actuation mist for inhalation Problems (Stiolto Respimat) L.acidophilus-L.paracasei-B.bifidum-S.thermophl 1 cap PO DAILY #0 caps 03/01/23 04/25/23 Rx 8 billion cell capsule (RisaQuad) ipratropium bromide 0.02 % 0.5 mg (2.5 mL) inhalation Q6RT 30 03/01/23 04/25/23 Rx solution for inhalation days #300 mL levalbuterol HCl 1.25 mg/3 mL 1.25 mg (3 mL) inhalation Q6RT 30 03/01/23 04/25/23 Rx solution for nebulization days #360 mL levofloxacin 750 mg tablet 750 mg PO Q48H 3 days #2 tabs 04/26/23 Rx prednisone 20 mg tablet 40 mg PO DAILY 8 days #16 tabs 04/26/23 Rx New Prescriptions to Start Prescriptions: levofloxacin Yariel Weir prednisone Yariel Weir Allergies Allergy/AdvReac Type Severity Reaction Status Date / Time diazepam AdvReac Severe Vomiting Verified 03/25/23 11:29 aspirin AdvReac Other Verified 03/25/23 11:29 Discharge Plan Disposition Patient Disposition: Home, Self-Care Condition: Fair Discharge Order Discharge Orders: Discharge Order (Routine); Ordered 04/26/23 Ordered By: Yariel Weir Follow up Plan Follow up with: Leonel Gu MD [Staff Physician] - Enter time for follow up (Please call [phone] ext [phone] to make a follow up appt tomorrow.) Prescriptions/Medication Reconciliation: New prednisone 20 mg Tablet 40 mg PO DAILY 8 Days Qty: 16 0RF levofloxacin 750 mg tablet 750 mg PO Q48H 3 Days Qty: 2 0RF Rx Instructions: first dose tonight, last dose evening of 04/28 Continued Stiolto Respimat 2.5-2.5 mcg/actuation Mist 2 puff INHALATION DAILY ipratropium bromide 0.02 % Solution 0.5 mg inhalation Q6RT 30 Days Qty: 300 0RF RisaQuad 8 billion cell Capsule 1 cap PO DAILY Qty: 0 0RF levalbuterol HCl 1.25 mg/3 mL Solution For Nebulization 1.25 mg inhalation Q6RT 30 Days Qty: 360 0RF Problem Reconciliation Problems Reviewed?: Yes Patient Discharge Instructions ACTIVITY: Continue current activity DIET: continue same diet Patient Instructions: Pneumonia-Adult, DI for Pneumonia -- Adult, DI for Hyponatremia, DI for Respiratory Failure Providers Primary Care Provider: Mk Reagan Admit Provider: Yariel Weir Attending Provider: Yariel Weir
[2023-04-26 07:46] LABS: Basophils % 0.1 % (0.1-2.0); Eosinophils % 0.1 % (0.1-12.0); Hematocrit 41.6 % (37.0-47.0); Lymphocytes # 0.5 K/mm3 (0.7-4.5); Lymphocytes % 7.8 % (10-50); Mean Corpuscular Volume 87.6 fl (81-99); Mean Platelet Volume 8.6 fl (7.4-10.4); Monocytes # 0.7 K/mm3 (0.1-1.0); Monocytes % 9.8 % (1.7-9.3); Neutrophils # 5.8 K/mm3 (1.8-7.8); Neutrophils % 82.2 % (37.0-80.0); Platelet Count 303 K/mm3 (142-424); Red Blood Count 4.75 M/mm3 (4.20-5.40); Red Cell Distribution Width 15.6 % (11.5-17.5)
[2023-04-26 07:49] LABS: Chloride 97 mmol/L (98-107); Potassium 3.7 mmoL/L (3.5-5.1); Sodium 131 mmol/L (136-145)
[2023-04-26 07:51] LABS: Blood Urea Nitrogen 13 mg/dl (7-17); Creatinine Clearance Estimated 37 mL/min (50-200); Estimated Glomerular Filt Rate 160 ml/min (>60); GFR (African American) 193 ML/MIN (>60)
[2023-04-26 07:52] LABS: Alanine Aminotransferase 17 U/L (12-78); Albumin Level 3.7 g/dl (3.5-5.0); Albumin/Globulin Ratio 1.1 (1.1-1.8); Alkaline Phosphatase 105 U/L (38-126); Anion Gap 3.7 mEq/L (5-15); Aspartate Amino Transferase 34 U/L (14-36); Bilirubin,Total 0.2 mg/dl (0.2-1.3); Calcium 8.8 mg/dl (8.4-10.2); Carbon Dioxide 34 mmol/L (22.0-30.0); Globulin 3.4 g/dL (1.3-3.2); Glucose 103 mg/dl (74-100); Magnesium 1.7 mg/dl (1.6-2.3); Total Protein,Serum 7.1 g/dl (6.3-8.2)
[2023-04-26 08:00] VITALS: BP 97/58; PULSE 85; RESP 17; TEMP 36.6; O2SAT 94
[2023-04-26 08:06] LABS: Hemoglobin 13.3 g/dL (12.2-16.2)
[2023-04-26] MEDS: SODIUM CHLORIDE 1,000MG TABLET 500 MG PO (08:06)
[2023-04-26] MEDS: predniSONE 20MG TAB 40 MG PO (08:06)
[2023-04-26] MEDS: ENOXAPARIN 40MG/0.4ML SYRINGE 40 MG SQ (08:06)
[2023-04-26 08:10] VITALS: O2SAT 90
[2023-04-26] MEDS: MAGNESIUM SULFATE IN WATER 2 GM/50 ML PIGGYBACK IV (08:48)
--- NOTE | 2023-04-27 14:55 | CARE MANAGER ---
Patient called back and states that she feels poorly. She has medication. Is not going to follow up with Dr. Reagan or Dr. Gu. She is going to see another one of her doctors on . She denies any other questions or concerns.MK Pace
== END 2023-04-26 10:15 | disposition home or self-care (01) ==
LOC: ER 16:05 → 2ND 18:37
PROVIDERS: Admitting Provider Internal Medicine Adolescent Medicine; Emergency Provider Emergency Medicine; PCP Internal Medicine Adolescent Medicine; Visit Provider Internal Medicine Adolescent Medicine
DX: J96.21 Acute and chronic respiratory failure with hypoxia (principal); F17.210 Nicotine dependence, cigarettes, uncomplicated; J18.9 Pneumonia, unspecified organism; J43.9 Emphysema, unspecified; Z85.118 Personal history of other malignant neoplasm of bronchus and lung; J70.0 Acute pulmonary manifestations due to radiation; I25.2 Old myocardial infarction; I25.10 Atherosclerotic heart disease of native coronary artery without angina pectoris; F17.200 Nicotine dependence, unspecified, uncomplicated; Z71.6 Tobacco abuse counseling
CPT/HCPCS: 36415; 71046; 80053; 82550; 82803; 83735; 85025; 87070; 87205; 87632; 87635; 87636; 93005; 94640; 94761; 99285; G0378; J1956; J3475

== ENCOUNTER 2023-09-30 13:04 | Outpatient (CLI) | payer BC, SELFPAY ==
--- NOTE | 2023-09-30 | MR_ITS ---
FINAL REPORT CLINICAL HISTORY: HEADACHE COMPARISON: 03/27/2023 FINDINGS: Multi planar MR imaging was obtained through the brain without contrast. The midline structures appear intact. There is no evidence of Chiari malformation. On T2 and flair axial images the brain parenchyma contains minimal scattered foci of deep white matter increased signal bilaterally. On diffusion-weighted images there is no evidence of restricted diffusion. The visualized paranasal sinuses demonstrate normal signal voids. The seventh and eighth nerve root complexes are intact. IMPRESSION: Minimal changes of chronic ischemic microvascular disease without evidence of acute intracranial abnormality. Reviewed, Interpreted and Dictated by Praneeth Bernal MD Transcribed by Maureen Loyola Authenticated and [facility]
== END 2023-09-30 23:59 | disposition home or self-care (01) ==
LOC: RAD 13:05
PROVIDERS: PCP Nurse Practitioner Family; Visit Provider Nurse Practitioner Family
DX: C34.91 Malignant neoplasm of unspecified part of right bronchus or lung (principal); R51.9 Headache, unspecified
CPT/HCPCS: 70551

== ENCOUNTER 2023-10-05 11:00 | Outpatient (CLI) | payer BC, SELFPAY ==
--- NOTE | 2023-10-05 11:04 | FL_ITS ---
FINAL REPORT CLINICAL HISTORY: DYSPHAGIA 2:24 fluoro 9.91 mGy 137.59 DAP FINDINGS: MODIFIED BARIUM SWALLOW History: Dysphagia FINDINGS: Fluoroscopy was provided for the speech pathologist to evaluate the swallowing mechanism. The patient was given several different consistencies of barium while the swallow was visualized fluoroscopically. The report of the speech pathologist should be consulted prior to making dietary decisions. Fluoroscopy time: 2 minutes 24 seconds Radiation exposure in Reference air Kerma: 9.91 mGy IMPRESSION: Modified barium swallow under fluoroscopic guidance. Please see the report of the speech pathologist for Dietary recommendations. Films reviewed , interpreted and dictated by Dr. Wagner Transcribed by Rome Ornelas PA-C. Reviewed, Interpreted and Dictated by Vinnie Wagner III, MD Transcribed by KAE Juarez Authenticated and [facility]
[2023-10-05] MEDS: BARIUM SULFATE(LIQUID E-Z-PAQUE);355ML BOTTLE 355 ML PO (11:50)
--- NOTE | 2023-10-05 16:06 | HMH.SLMBS2 ---
Speech & Language Evaluation Speech/Language Mod Barium Swallow Start: 10/05/23 15:40 Freq: once Status: Complete Protocol: Document 10/05/23 15:40 [facility] (Rec: 10/05/23 16:05 [facility] Laptop) Co-signed By ST Darryl General Information General Current Food Consistancy Regular,Thin Liquids Dentition Poor Dentition Oxygen Status Room Air Facial Symmetry Symmetrical Patient Orientation Person,Place,Time,Situation Ability to Follow Directions Excellent Communication Ability No Impairment MBS Recommendations Diet Dietary Recommendations Mechanical Soft,Thin Liquids Treatment/Strategies Strategy/Precaution Recommend Sitting Upright (90 deg),Chin Tuck,Double Swallow,Small Bites and Sips,Alternate Liquids/Solids Referrals/Other Recommended Referrals GI Consult Other Recommendations GI consult d/t globus sensation Mod Barium Swallow Impressions Summary and Impressions Oral Phase Impression Mild Impairment Oral Phase Summary Mild impairment of the oral phase of swallow. Pt demonstrated labial seal WFL. No anterior loss observed on any trial. Pt demonstrated adequate lingual movement. Pt demonstrated mild oral residue on all trials, which was able to be cleared independently. Pt exhibited mild impairment with mastication and manipulation of bolus on mechanical soft trial '2 poor dentition. Pharyngeal Phase Impression Moderate Impairment Pharyngeal Phase Summary Pt demonstrated moderate impairment of pharyngeal phase of swallow. No aspiration or penetration noted on any consistency trialed. Pt exhibited mild impairment of base of tongue retraction. No impairment of epiglottic coverage or hyolaryngeal excursion and elevation. Pt exhibited a moderate amount of vallecular and posterior pharyngeal wall residue on all consistencies trialed. Pt was able to clear this with multiple swallow attempts, effortful swallow, throat clear, and chin tuck. Pt exhibited moderate pyriform sinus retention with barium tablet trial, which was cleared independently with a double swallow. Speech/Language MBS Assessment/Goals/Plan Assessment Date of Evaluation: 10/05/23 Evaluation Type Initial Certification Assessment/Problems dysphagia per MD order Does Patient Qualify for Service No Qualify/Failure Comment Based on results of the instrumental assessment, clinical observations, and patient interview, further skilled speech therapy services are not warranted at this time. Pt would benefit from GI consult. Recommendations PHYSICIAN CERTIFICATION: The specified therapy services are required, authorized, and reviewed every 30 days. Diet Recommendations Mechanical Soft Liquid Type Recommendations Normal/Thin SL Swallow Guidelines Standard Aspiration Prec.,Eat at slow rate,Reflux precautions Dysphagia Swallow Precautions/Strategies Sitting Upright (90 deg),Chin Tuck,Double Swallow,Small Bites and Sips,Alternate Liquids/Solids Plan Pt/Guardian verbally ack understanding Yes of dx/prognosis/goals G -code Required No Education Instructions provided Results of the instrumental assessment (MBSS), aspiration precautions/compensatory strategies, and diet recommendations were discussed with pt who expressed understanding. Pt/Caregiver able to recall information Able to recall/restate Reinforcement needed No Mod Barium Swallow Setup Exam Setup Radiologist Vinnie Wagner Level of Consciousness Awake,Alert,Appropriate, Follows Commands Mod Barium Swallow-Lat View Textures Lateral View Food Presentation Thin Liquid via Cup,Thin Liquid via Straw,Pureed Food- Thick,Mech. Soft Food- Regular ,Barium Tablet,Pudding Comment All bolus presentations trialed x2 to assess for consistency and fatigue. Regular foods were not trialed d/t pt dentition. Oral Phase Labial Closure No Impairment (WFL) Bolus Formation Pooling L/R No Impairment (WFL) Bolus Formation under Tongue No Impairment (WFL) Bolus Formation Scattered Loss No Impairment (WFL) Mastication Rotary Chew Mild Impairment Mastication Munching Mild Impairment Mastication Lateralization Mild Impairment Lingual Movement No Impairment (WFL) Residue Clearing Mild Impairment Pharyngeal Phase A/P Lingual Propulsion Spills No Impairment (WFL) Swallow Response Delay No Impairment (WFL) Base of Tongue Mild Impairment Epiglottic Coverage No Impairment (WFL) Laryngeal Elevation No Impairment (WFL) Vallecular Retention Clearing Moderate Impairment Pharyn. Wall Residue Clearing Moderate Impairment Piriform Sinus Retention Moderate Impairment Aspiration? No Silent aspiration? No Mod Barium Swallow-AP View Performed Mod Barium Swallow A/P View Test Not Applicable/Performed PHYSICIAN CERTIFICATION: I certify the specified therapy services for Alba Melo are required, authorized, and reviewed every 30 days.
== END 2023-10-05 23:59 | disposition home or self-care (01) ==
LOC: RAD 11:00
PROVIDERS: PCP Internal Medicine Adolescent Medicine; Visit Provider Internal Medicine Adolescent Medicine
DX: R13.10 Dysphagia, unspecified (principal)
CPT/HCPCS: 70371; 92611

== ENCOUNTER 2023-10-27 16:09 | Emergency (ER) | payer BC, SELFPAY ==
[2023-10-27 16:16] VITALS: BP 155/71; PULSE 95; O2SAT 96
--- NOTE | 2023-10-27 16:17 | ECG_ITS ---
APPROVED REPORT Exam: Resting ECG HR:93 bpm ECG Measurements Heart Rate 93 AXES NC 211 P 87 QRSd 119 QRS -60 QT 360 T 51 QTc 410 Conclusion Sinus rhythm first-degree AV block Q waves, likely old [place] Electronically signed by : MILES OBREGON, 10/27/2023 21:27:27
[2023-10-27 16:25] VITALS: BP 155/71; PULSE 93; RESP 20; TEMP 36.9; O2SAT 95; BMI 15.8
[2023-10-27 16:31] VITALS: BP 129/68; PULSE 88; O2SAT 97
--- NOTE | 2023-10-27 16:42 | CT_ITS ---
PROCEDURE INFORMATION: Exam: CTA Chest With Contrast Exam date and time: 10/27/2023 5:52 PM Age: 67 years old Clinical indication: Dyspnea; Additional info: Dyspnea history of right-sided lung cancer TECHNIQUE: Imaging protocol: Computed tomographic angiography of the chest with contrast. Exam focused on the arteries. 3D rendering (Not supervised by radiologist): MIP and/or 3D reconstructed images were created by the technologist. Radiation optimization: All CT scans at this facility use at least one of these dose optimization techniques: automated exposure control; mA and/or kV adjustment per patient size (includes targeted exams where dose is matched to clinical indication); or iterative reconstruction. Contrast material: ISOVUE 370; Contrast volume: 70 ml; Contrast route: INTRAVENOUS (IV); COMPARISON: CT ANGIO CHEST PE PROTOCOL 02/25/2023 11:28 AM FINDINGS: Pulmonary arteries: Normal. No pulmonary emboli. Aorta: Significant atherosclerotic calcification throughout the aorta. No evidence of aneurysm or dissection. Lungs: There has been interval development of a 2.7 cm subpleural mass in the medial portion of the right lower lobe as well as dense perihilar consolidation and atelectasis in the superior segment of the left lower lobe. Persistent 2 cm subpleural mass in the superior segment of the right lower lobe appears slightly decreased in size. Underlying changes of diffuse emphysema and patchy mild interstitial and alveolar opacities noted throughout both lungs. Pleural spaces: Unremarkable. No pneumothorax. No pleural effusion. Heart: Unremarkable. No cardiomegaly. No pericardial effusion. Lymph nodes: Persistent mild bilateral hilar lymphadenopathy. Bones/joints: Unremarkable. No acute fracture. Soft tissues: Unremarkable. IMPRESSION: 1. No evidence of pulmonary embolus 2. Interval development of 2.7 cm right lower lobe lung mass concerning for progression or recurrence of malignancy. 2 cm right lower lobe lung mass has slightly decreased in size 3. Dense left perihilar consolidative atelectasis may reflect acute pneumonitis or postradiation changes, although malignancy not excluded. COMMENTS: The presence of pulmonary emphysema on CT is an independent risk factor for lung cancer. In the absence of a history or active diagnosis of lung cancer, it is recommended that this patient with emphysema be evaluated for enrollment in a low dose CT lung cancer screening program.
--- NOTE | 2023-10-27 16:42 | HMH.EDGENADL ---
Discharge Plan Disposition Patient Disposition: Home, Self-Care Condition: Good Prescriptions Prescriptions: New ibuprofen 800 mg tablet 800 mg PO Q8H PRN (Reason: pain) Qty: 30 0RF methocarbamol 750 mg tablet 750 mg PO Q6H PRN (Reason: muscle spasm) Qty: 20 0RF ondansetron 4 mg tablet,disintegrating 4 mg PO QID PRN (Reason: nausea and vomiting) Qty: 10 0RF prednisone 50 mg tablet 50 mg PO DAILY 5 Days Qty: 5 0RF No Action Stiolto Respimat 2.5-2.5 mcg/actuation Mist 2 puff INHALATION DAILY ipratropium bromide 0.02 % Solution 0.5 mg inhalation Q6RT 30 Days Qty: 300 0RF RisaQuad 8 billion cell Capsule 1 cap PO DAILY Qty: 0 0RF levalbuterol HCl 1.25 mg/3 mL Solution For Nebulization 1.25 mg inhalation Q6RT 30 Days Qty: 360 0RF prednisone 20 mg Tablet 40 mg PO DAILY 8 Days Qty: 16 0RF levofloxacin 750 mg tablet 750 mg PO Q48H 3 Days Qty: 2 0RF Rx Instructions: first dose tonight, last dose evening of 04/28 Referrals Follow up/Referrals: Mk Reagan MD [Primary Care Provider] - See instructions Activity Restrictions/Add. Instructions Additional Instructions/Restrictions: Please call in the morning and establish a follow-up appointment with your oncologist. Return to ER for any worsening signs or symptoms as needed Clinical Impressions Clinical Impression: Acute on chronic hypoxic respiratory failure, COPD with acute exacerbation Headache Qualifiers: Headache type: post-traumatic Headache chronicity pattern: chronic headache Intractability: not intractable Qualified Code(s): G44.329 - Chronic post-traumatic headache, not intractable Instructions Patient Instructions: DI for Chronic Obstructive Pulmonary Disease, DI for Headache Print Language Print Language: Setswana Discharge ED Provider: [facility] <KAE Cuenca - Last Filed: 10/27/23 19:14> General Chief complaint: Shortness of Breath/Dyspnea Stated complaint: SOA,headache Time Seen by Provider: 10/27/23 16:16 Mode of Arrival: Ambulatory Source of Information: Patient Limitations: No Limitations Description of Symptoms (Recalled from ER Triage Doc. by RN): pt to ed c/o cough, shortness of breath and generalized weakness. pt states her symptoms have been ongoing for months. pt reports a hx of lung cx. History of Present Illness HPI narrative: Patient presents for evaluation of dyspnea and headache. Patient has a history of COPD chronically on 2-1/2 L, history of lung cancer both in the left lung and in the right lung at separate times but most recently in the right which she completed external beam radiation at [facility] in June. Also at some point in June patient fell striking her forehead did not lose consciousness however she has suffered nearly daily frontal headaches without any focal neurologic findings. She is also not treated that with anything [id number] was trialed on a migraine medication by her PCP which did not help. Patient also presents today for increasing dyspnea and has had to turn her oxygen up to 4 L to maintain sat above 90%. She denies fever chills hemoptysis hematochezia melena chest pain nausea vomiting diarrhea. Related Data Home Medications ?Medication ?Instructions ?Recorded ?Confirmed tiotropium 2.5 mcg-olodaterol 2.5 2 puff inhalation DAILY Breathing 01/27/23 04/25/23 mcg/actuation mist for inhalation Problems (Stiolto Respimat) Previous Rx's ?Medication ?Instructions ?Recorded L.acidophilus-L.paracasei-B.bifidum-S.thermophl 1 cap PO DAILY #0 caps 03/01/23 8 billion cell capsule (RisaQuad) ipratropium bromide 0.02 % 0.5 mg (2.5 mL) inhalation Q6RT 30 03/01/23 solution for inhalation days #300 mL levalbuterol HCl 1.25 mg/3 mL 1.25 mg (3 mL) inhalation Q6RT 30 03/01/23 solution for nebulization days #360 mL levofloxacin 750 mg tablet 750 mg PO Q48H 3 days #2 tabs 04/26/23 prednisone 20 mg tablet 40 mg (2 x 20 mg) PO DAILY
[2023-10-27 17:00] VITALS: BP 118/60; PULSE 81; O2SAT 97
--- NOTE | 2023-10-27 17:16 | ECG_ITS ---
APPROVED REPORT Exam: Resting ECG HR:82 bpm ECG Measurements Heart Rate 82 AXES WA 198 P 153 QRSd 118 QRS -22 QT 396 T 0 QTc 434 Conclusion Sinus rhythm first-degree AV block Electronically signed by : MILES OBREGON, 10/27/2023 21:28:37
[2023-10-27 17:24] LABS: Basophils % 0.2 % (0.1-2.0); Eosinophils # 0.1 K/mm3 (0.0-0.4); Eosinophils % 0.7 % (0.1-12.0); Hematocrit 31.1 % (37.0-47.0); Hemoglobin 9.4 g/dL (12.2-16.2); Lymphocytes # 0.5 K/mm3 (0.7-4.5); Mean Corpuscular HGB Conc 30.3 g/dL (31.8-35.4); Mean Corpuscular Hemoglobin 22.8 pg (27.0-31.2); Mean Corpuscular Volume 75.2 fl (81-99); Mean Platelet Volume 7.6 fl (7.4-10.4); Monocytes # 0.7 K/mm3 (0.1-1.0); Monocytes % 6.8 % (1.7-9.3); Neutrophils # 8.5 K/mm3 (1.8-7.8); Neutrophils % 87.2 % (37.0-80.0); Platelet Count 414 K/mm3 (142-424); Red Blood Count 4.14 M/mm3 (4.20-5.40); Red Cell Distribution Width 18.6 % (11.5-17.5); White Blood Count 9.7 K/mm3 (4.8-10.8)
[2023-10-27 17:26] LABS: MANUAL DIFFERENTIAL MANUAL DIFFERENTIAL (MANUAL DIFF)
[2023-10-27 17:30] VITALS: BP 100/57; PULSE 84; O2SAT 97
[2023-10-27 17:30] LABS: Albumin Level 3.9 g/dl (3.5-5.0); Chloride 91 mmol/L (98-107); Potassium 4.2 mmoL/L (3.5-5.1); Sodium 127 mmol/L (136-145)
[2023-10-27 17:33] LABS: Alanine Aminotransferase 12 U/L (12-78); Albumin/Globulin Ratio 1.1 (1.1-1.8); Alkaline Phosphatase 90 U/L (38-126); Anion Gap 9.2 mEq/L (5-15); Aspartate Amino Transferase 26 U/L (14-36); Bilirubin,Total 0.4 mg/dl (0.2-1.3); Blood Urea Nitrogen 10 mg/dl (7-17); Carbon Dioxide 31 mmol/L (22.0-30.0); Creatinine Clearance Estimated 33 mL/min (50-200); Estimated Glomerular Filt Rate 160 ml/min (>60); GFR (African American) 193 ML/MIN (>60); Globulin 3.6 g/dL (1.3-3.2); Total Protein,Serum 7.5 g/dl (6.3-8.2)
[2023-10-27 17:34] LABS: Calcium 8.9 mg/dl (8.4-10.2); Glucose 91 mg/dl (74-100)
[2023-10-27 17:50] LABS: Magnesium 1.4 mg/dl (1.6-2.3)
[2023-10-27 17:54] LABS: Lymphocytes % 5 % (10-50); Monocytes % 7 % (2-9); Neutrophils % 88 % (42-76); Total Cells Counted 100
[2023-10-27 17:55] LABS: Platelet Estimate Slight Increase
[2023-10-27 17:56] LABS: Macrocytosis 1+; Microcytosis 1+; Ovalocytes 1+
[2023-10-27 17:57] LABS: Anisocytosis 1+; Poikilocytosis 1+; Target Cells 1+; Tear Drop Cells 1+
[2023-10-27 19:02] VITALS: BP 110/70; PULSE 89; RESP 20; TEMP 36.9; O2SAT 94
== END 2023-10-27 19:03 | disposition home or self-care (01) ==
PROVIDERS: Physician Assistant; Emergency Provider Emergency Medicine; PCP Internal Medicine Adolescent Medicine
DX: J96.21 Acute and chronic respiratory failure with hypoxia (principal); J44.1 Chronic obstructive pulmonary disease with (acute) exacerbation; G44.329 Chronic post-traumatic headache, not intractable; E87.1 Hypo-osmolality and hyponatremia; I44.0 Atrioventricular block, first degree; Z99.81 Dependence on supplemental oxygen; Z87.891 Personal history of nicotine dependence; Z85.118 Personal history of other malignant neoplasm of bronchus and lung
CPT/HCPCS: 71275; 80053; 83735; 85007; 85025; 85027; 93005; 96361; 96365; 96375; 99285; J0131; J0780; J1100; J3475; J7120; J7620; Q9967

== ENCOUNTER 2023-11-19 13:12 | Outpatient (CLI) | payer BC, SELFPAY ==
--- NOTE | 2023-11-19 13:16 | CA_ITS ---
FINAL REPORT TECHNIQUE: Color Doppler, duplex Doppler and quintero scale sonography of the bilateral neck arterial vasculature was performed. Velocities were measured in the carotid arteries. Stenosis evaluation based on the validated velocity criteria. CLINICAL HISTORY: dizziness, NORIS Right CCA/ICA stent, Bruit COMPARISON: None FINDINGS: The peak systolic velocity of the right common carotid artery is 67 cm/s. The peak systolic velocity of the right internal carotid artery is 169 cm/s and end diastolic velocity 43 cm/s. The ICA/CCA ratio is 2.5. An extensive bulky amount of plaque is present. The right external carotid artery is patent. There is right vertebral stenosis. The peak systolic velocity of the left common carotid artery is 158 cm/s. The peak systolic velocity of the left internal carotid artery is 285 cm/s and end diastolic velocity 83 cm/s. The ICA/CCA ratio is 3.4. An extensive bulky amount of plaque is present. The left external carotid artery is patent.The left vertebral artery is patent with antegrade flow. IMPRESSION: Right carotid stenosis of 50 to 69%. Left carotid stenosis of 60 to 79%. Extensive bulky calcified plaque bilaterally. If indicated, CTA or MRA could further evaluate. Reviewed, Interpreted and Dictated by Praneeth Bernal MD Transcribed by Maribell Xiao Authenticated and . [facility]
== END 2023-11-19 23:59 | disposition home or self-care (01) ==
LOC: RT 13:13
PROVIDERS: PCP Internal Medicine Adolescent Medicine; Visit Provider Internal Medicine
DX: I20.0 Unstable angina (principal); R42 Dizziness and giddiness; I65.29 Occlusion and stenosis of unspecified carotid artery; J44.1 Chronic obstructive pulmonary disease with (acute) exacerbation
CPT/HCPCS: 93880

== ENCOUNTER 2023-12-10 13:37 | Outpatient (CLI) | payer BC, SELFPAY ==
--- NOTE | 2023-12-10 | CA_ITS ---
APPROVED REPORT Exam: Exercise Treadmill Technologist: Jenny Hill, Ht: 5 ft 1 in Wt: 86 lbs BSA: 1.32 m2 HR: 97 bpm BP: 181/82 mmHg Rhythm: Nsr, LVH, old anterior and inferior [place] Medical History Medical History: HTN, Hyperlipidemia, Smoking Medications: Ibuprofen,,,,, Prednisone,,,,, Levofloxacin,,,,, Methocarbamol,,,,, ONdansetron,,,,, StIOLto Respimat,,,,, Ipatropium BROMIDE,,,,, RIsaquad,,,,, Levalbuterol hcl,,,,, Allergies: Diazepam, Aspirin Cardiac Risk Factors: HTN, Hyperlipidemia, FHX of CAD, Smoking Stress Test Details Test: Manual Treadmill HR Resting HR: 99 bpm Max Heart Rate (APMHR): 153 bpm Max HR Achieved: 120 bpm Target HR (85% APMHR): 130 bpm % of APMHR: 78 Recovery HR: 104 bpm HR response to stress: Abnormal HR response to stress BP Resting BP: 181.0/82 mmHg Max BP: 181/82 mmHg Recovery BP: 166.0/93.0 mmHg ECG Resting ECG: Nsr, LVH, old anterior and inferior TX Clinical Exercise duration: 02:33 min Highest Stage Achieved: Exercise capacity: 4.2 METs Stress ECG Conclusion Pt walked 2:33 in a manual protocol at 1.5 mph and 10% grade Max HR: 120 % of PM: 78% Max BP: 166/93 Mets: 4.2 Test stopped due to: soa, leg fatigue Pt had dyspnea No cp Rare PAC Conclusion: Non-diagnostic GXT due to inadequate HR response. GXT only per patient request. In the setting of nondiagnostic study, further evaluation with alternative modality is recommended. Test Summary REST . . . . . . . Standing REST . . . . . . . Sitting REST 05:20 0.0 0.0 99 . 181/ 82 . . Stage 1 . . . . . . . Protocol changed to Manual Treadmill Stage 1 01:00 10.0 1.5 109 . . . . Stage 1 02:00 10.0 1.5 113 . . . . Stage 1 02:33 10.0 1.5 119 . . . Stop exercise at 02:33 RECOVERY 01:00 0.0 0.0 116 . . . . RECOVERY 02:00 0.0 0.0 115 . . . . RECOVERY 03:00 0.0 0.0 111 . 142/ 88 . . RECOVERY 04:00 0.0 0.0 103 . 142/ 88 . . RECOVERY 05:00 0.0 0.0 104 . 166/ 93 . . RECOVERY 05:18 0.0 0.0 102 . 166/ 93 . . Electronically signed by : Mariajose Prather MD 12/24/2023 13:03:38
--- NOTE | 2023-12-10 13:41 | CA_ITS ---
APPROVED REPORT EXAM: Comprehensive 2D, Doppler, and color-flow Echocardiogram Decontamination Worker: MARGARITA Hart, RVS Ht: 5 ft 1 in Wt: 86lbs BSA: 1.32 BP: 118/86 mmHg Indications: Dyspnea. Afib,COPD, Lung cancer, CM, Murmurs Echo Enhancing Agent Comments: Patient declined IV & contrast use 2D Dimensions IVSd 1.09 cm LVEF (Visual) 25.40 % PWd 0.93 cm LA Volume 67.70 mL LVDd 5.17 cm LA Volume Index 51.29 mL/m2 (M/F) 16-34 LVDs 4.22 cm EF AP4 21.90 % Left Atrium 4.10 cm GL Strain -14.8 % M-Mode Dimensions RVDd 1.26 cm (0.9-2.6) LA Diam 3.75 cm (1.9-4.0) LVDd 5.56 cm (3.5-5.7) LVDs 3.87 cm (3.5-5.7) IVSd 1.13 cm (0.6-1.1) PWd 0.85 cm (0.6-1.1) EF (Teich) 49.00% EPSs 2.22 cm FS 24.00% EDV (Teich) 142.50 mL TAPSE 1.88 (<1.7) ESV (Teich) 64.70 mL LV Diastology E Decel Time 83 (160-240 msec) E/A Ratio 0.93 MED A' 13.30 cm/s LAT A' 14.80 cm/s Aortic Valve SARAH Index 1.01 cm2/m2 AoV Peak Julian. 215.0 (50-130 cm/s) AO Peak GR. 18.80 mmHg AO Mean GR. 9.30 (<5 mmHg) AO VTI 45.2 (18-25 cm) SARAH (VTI) 1.36 (2.5-4.5 cm2) Mitral Valve MV A Velocity 123.0 (40-130 cm/s) E/A Ratio 0.93 MV Mean Gr. 4.10 (<2mmHg) Pulmonary Valve PV Peak Velocity 100.0 (50-150 cm/s) MI End VMAX 204.0 cm/s Tricuspid Valve TR P. Velocity 199.00 cm/s Left Ventricle The left ventricle is normal size. Left ventricular systolic function is mildly decreased. There is increased LV wall thickness. There is severe hypokinesis of the basal septal, inferoseptal, and anteroseptal LV chino. The septum is asynchronous. Grade 1 diastolic dysfunction is present. LVEF is 40-45%. Right Ventricle The right ventricle is normal size. The right ventricular systolic function is normal. Atria The left atrium is moderately dilated. The right atrium is mildly dilated. There is no Doppler evidence of interatrial shunt. Aortic Valve The aortic valve is mildly thickened. Mild aortic stenosis. SARAH by continuity equation is 1.5 cm???. Peak velocity 2.5 m/s. Mean AV gradient 13 mmHg. Max AV gradient 25 mmHg. Mild aortic regurgitation. Mitral Valve The mitral valve leaflets are mildly thickened. The posterior MV leaflet appears tethered and restricted in motion. No evidence of mitral valve stenosis. Moderate mitral regurgitation. The MR jet is eccentric and posteriorly directed. The mechanism of MR is likely due to tethering of the posterior MV leaflet. Tricuspid Valve The tricuspid valve leaflets are thin and pliable. Mild tricuspid regurgitation. RVSP is 25-30 mmHg. Pulmonic Valve The pulmonary valve is normal in structure. Mild pulmonic regurgitation. Great Vessels The aortic root is normal in size. The ascending aorta is not well-visualized. IVC is normal in size and collapses >50% with inspiration. Pericardium There is no pericardial effusion. Other Information Study Quality: Fair Conclusion Mild reduction in LV systolic function (LVEF 45%). Severe hypokinesis of the basal septal, inferoseptal, and anteroseptal LV chino. The septum is asynchronous. Biatrial dilation. The posterior MV leaflet appears tethered. Moderate MR (likely Aleah class IIIb due to tethering of the posterior leaflet). Mild (SARAH by continuity equation is 1.5 cm???. Peak velocity 2.5 m/s. Mean AV gradient 13 mmHg. Max AV gradient 25 mmHg). Mild AI, mild TR Electronically signed by : Mariajose Prather MD 12/16/2023 10:00:27
== END 2023-12-10 23:59 | disposition home or self-care (01) ==
PROVIDERS: PCP Internal Medicine Adolescent Medicine; Visit Provider Nurse Practitioner Family
DX: I25.118 Atherosclerotic heart disease of native coronary artery with other forms of angina pectoris (principal)
CPT/HCPCS: 93017; 93018; 93306

== ENCOUNTER 2023-12-28 07:03 | Outpatient (CLI) | payer BC, SELFPAY ==
--- NOTE | 2023-12-28 07:06 | NM_ITS ---
APPROVED REPORT Exam: Nuclear Stress Test Indication: Chest pain, SOB, Tobacco use, Family history, CAD Patient Location: Outpatient Stress Tech: Elaine Duran [place] Tech:Yamileth Unger, ARRT, RT (R)(N) Ht: 5 ft 1 in Wt: 88 lbs Bra Size: 36C HR: 94 bpm BP: 156/69 mmHg BSA: 1.33 m2 Rhythm: NSR TID: 1.02 BMI: 16.6 History: Chest pain, SOB, Tobacco use, Family history, CAD Procedure: Patient received 0.4 mg of intravenous Lexiscan, resting heart rate 94 bpm, resting blood pressure 156/69 mmHg, with Lexiscan maximum heart rate achieved was 103 bpm which is % of the maximum predicted heart rate and blood pressure was 156/69 mmHg. With Lexiscan, patient denied any complaint of chest pain. Cardiac Stress and Resting SPECT Images: Cardiac Stress and Resting SPECT images were obtained using technetium 99m Myoview 24.7 mCi stress and 8.11 mCi at rest. Resting and stress imaging in supine and prone positions demonstrate a large sized, severe, fixed perfusion defect in the inferior and inferoseptal LV chino. Gated imaging demonstrates low normal LV systolic function. There is mild hypokinesis of the inferior LV wall. LVEF is calculated at 52%. Conclusion: Large sized, severe, fixed perfusion defect in the inferior and inferoseptal LV chino. No evidence of reversible ischemia. Gated imaging demonstrates low normal LV systolic function. There is mild hypokinesis of the inferior LV wall. LVEF is calculated at 52%. Electronically signed by : Mariajose Prather MD 12/28/2023 12:18:02
[2023-12-28] MEDS: ISOTOPE MYOVIEW (PER STUDY) 1 DOSE IV (08:44)
[2023-12-28] MEDS: SODIUM CHLORIDE 0.9% 10ML SYR (RAD ONLY) 10 ML IV ×2 (08:44)
[2023-12-28] MEDS: REGADENOSON 0.4MG/5ML SYRINGE 0.4 MG IV (08:44)
--- NOTE | 2023-12-28 09:36 | CA_ITS ---
APPROVED REPORT Exam: Pharmacologic Technologist: Elaine Duran Ht: 5 ft 1 in Wt: 88 lbs BSA: 1.33 m2 HR: 93 bpm BP: 156/69 mmHg Indications: Atypical Angina Medical History Medications: Amlodipine,,,,, Diazepam,,,,, Prednisone,,,,, OxYCODONE,,,,, Ipratropium Drummonds,,,,, Apixaban,,,,, ONdansetron,,,,, StIOLto,,,,, Levalbuterol hcl,,,,, Stress Test Details Test: LEXISCAN HR Resting HR: 94 bpm Max Heart Rate (APMHR): 153 bpm Max HR Achieved: 103 bpm Target HR (85% APMHR): 130 bpm % of APMHR: 67 Recovery HR: 99 bpm BP Resting BP: 156.0/69.0 mmHg Max BP: 156.0/69.0 mmHg Recovery BP: 105.0/51.0 mmHg ECG Resting ECG: IVCD, inferolateral ischemia changes Clinical Exercise duration: 03:01 min Highest Stage Achieved: Stress ECG Conclusion Symptoms: Mild chest tightness, Shortness of air. Lightheaded when blood pressure decreased. Arrhythmias/Ectopy: None ST-T Changes: No significant ST changes. Conclusion: Nondiagnostic ECG portion of Lexiscan stress test due to baseline abnormalities. Myoview images are reported separately. Test Summary REST . . . . . . . Resting REST 06:34 . . 94 . 156/ 69 . . Stage 1 . . . . . . . Myoview Injected Stage 1 01:00 . . 98 . . . . Stage 2 01:00 . . 102 . 112/ 54 . . Stage 3 01:00 . . 102 . 101/ 50 . . Stage 4 00:01 . . 102 . . . Stop exercise at 03:01 RECOVERY 01:00 . . 101 . 101/ 48 . . RECOVERY 02:00 . . 102 . 105/ 48 . . RECOVERY 02:58 . . 99 . 105/ 51 . . Electronically signed by : Mariajose Prather MD 12/28/2023 12:15:54
== END 2023-12-28 23:59 | disposition home or self-care (01) ==
LOC: RAD 07:03
PROVIDERS: PCP Internal Medicine Adolescent Medicine; Visit Provider Internal Medicine
DX: I25.10 Atherosclerotic heart disease of native coronary artery without angina pectoris (principal); J44.1 Chronic obstructive pulmonary disease with (acute) exacerbation; I65.29 Occlusion and stenosis of unspecified carotid artery
CPT/HCPCS: 78452; 93017; 93018; A9502; J2785

== ENCOUNTER 2024-01-11 15:12 | Inpatient (IN) | payer BC, SELFPAY ==
[2024-01-11] VITALS (8 sets, daily range): BP systolic 101–132; BP diastolic 55–67; PULSE 90–116; RESP 16–18; TEMP 36.8–37.1; O2SAT 89–96; BMI 15.5
--- NOTE | 2024-01-11 16:09 | ED_ITS ---
<Statement entered by Iva Leonard DO - 01/11/24 23:36> I was consulted by the STEPHANIE, and we discussed the complexity of the problems being addressed. I approved the treatment and management plan for this patient's care in the emergency department, thus performing a substantive portion of the medical decision making. Iva Leonard DO Discharge Plan Disposition Chief Complaint: Recheck/Abnormal Lab/Rx Prescriptions Prescriptions: No Action amiodarone 200 mg tablet 200 mg PO Patient Comments: TAKE 1 TABLET BY MOUTH ONCE DAILY FOR 90 DAYS diazepam [Valium] 5 mg tablet 5 mg PO PRN oxycodone 5 mg tablet 5 mg PO Patient Comments: TAKE 1 TABLET BY MOUTH 4 TIMES DAILY FOR 10 DAYS furosemide [Lasix] 20 mg tablet 20 mg PO DAILY Qty: 30 5RF Eliquis 5 mg tablet 5 mg PO BID Qty: 60 2RF Stiolto Respimat 2.5-2.5 mcg/actuation Mist 2 puff INHALATION DAILY ondansetron 4 mg tablet,disintegrating 4 mg PO QID PRN (Reason: nausea and vomiting) Qty: 10 0RF prednisone 50 mg tablet 50 mg PO DAILY 5 Days Qty: 5 0RF ipratropium bromide 0.02 % Solution 0.5 mg inhalation Q6RT 30 Days Qty: 300 0RF levalbuterol HCl 1.25 mg/3 mL Solution For Nebulization 1.25 mg inhalation Q6RT 30 Days Qty: 360 0RF prednisone 20 mg Tablet 40 mg PO DAILY 8 Days Qty: 16 0RF Referrals Follow up/Referrals: Mk Reagan MD [Primary Care Provider] - See instructions Print Language Print Language: Telugu Discharge ED Provider: Iva Leonard General Adult HPI General Chief complaint: Recheck/Abnormal Lab/Rx Stated complaint: Weakness,abnormal labs Time Seen by Provider: 01/11/24 16:09 History of Present Illness HPI narrative: Patient presents to the emergency department for recheck of abnormal labs. Patient was seen by her PCP last and was told that she needed to come to the emergency department for low iron . Patient has a past medical history of lung cancer with recurrence and is currently undergoing radiation therapy to her chest at [facility]. Patient has chronic COPD on chronic 4 L by nasal cannula, angina, coronary artery disease, atherosclerotic cardiovascular disease. She herself reports feeling weak and tired but denies cardiac chest pain fever chills hemoptysis hematochezia melena nausea vomiting diarrhea worsening dyspnea increasing oxygen requirements. Related Data Home Medications ?Medication ?Instructions ?Recorded ?Confirmed tiotropium 2.5 mcg-olodaterol 2.5 2 puff inhalation DAILY Breathing 01/27/23 12/21/23 mcg/actuation mist for inhalation Problems (Stiolto Respimat) amiodarone 200 mg tablet 200 mg PO 12/21/23 12/21/23 diazepam 5 mg tablet (Valium) 5 mg PO PRN 12/21/23 12/21/23 oxycodone 5 mg tablet 5 mg PO 12/21/23 12/21/23 Previous Rx's ?Medication ?Instructions ?Recorded ipratropium bromide 0.02 % 0.5 mg (2.5 mL) inhalation Q6RT 30 03/01/23 solution for inhalation days #300 mL levalbuterol HCl 1.25 mg/3 mL 1.25 mg (3 mL) inhalation Q6RT 30 03/01/23 solution for nebulization days #360 mL prednisone 20 mg tablet 40 mg (2 x 20 mg) PO DAILY 8 days 04/26/23 #16 tabs ondansetron 4 mg disintegrating 4 mg PO QID PRN nausea and 10/27/23 tablet vomiting #10 tabs prednisone 50 mg tablet 50 mg PO DAILY 5 days #5 tabs 10/27/23 apixaban 5 mg tablet (Eliquis) 5 mg PO BID #60 tabs 12/14/23 furosemide 20 mg tablet (Lasix) 20 mg PO DAILY #30 tabs 12/21/23 Allergies Allergy/AdvReac Type Severity Reaction Status Date / Time diazepam AdvReac Severe Vomiting Verified 12/21/23 14:27 aspirin AdvReac Other Verified 12/21/23 14:27 [facility] Disclaimer: The information contained in this section may have been updated after the patient was seen, as this information can be updated by other users. Medical History Angina pectoris Acute and chronic respiratory failure with hypoxia Atrial fibrillation with RVR Primary lung cancer Acute hypoxemic respiratory failure Lung cancer Orthopnea Hemoptysis Smoking greater than 30 pack years Pulmonary emphysema History of lung cancer in adulthood Hilar lymphadenopathy Nodule of right lung Stenosis of carotid artery Cancer Migraine Heart attack NSCLC of left lung Anxiety Tooth abscess Antibiotics and diflucan for vaginitis from antibiotics. F/U with Dr Sherwood Surgical History History of bladder surgery History of heart artery stent History of hysterectomy Family History Other Cancer Heart attack Hypertension Stroke Social History Smoking Status: Current every day smoker tobacco type: cigarettes packs per day: 1 alcohol intake: never substance use type: denies use current occupational status: other Travel in the last 8 weeks: None Other Medical History Have you received the Flu Vaccine for this season: No Have you received the Pneumonia Vaccine: No ROS Obtained: Yes Systems reviewed as appropriate & no additional complaints except as documented Physical Exam General General appearance: alert and in no apparent distress Respiratory Respiratory exam: Absent normal lung sounds bilaterally (Patient has diminished breath sounds in the right mid lung balderas posteriorly but no adventitious sounds. She has no increased work of breathing.) Cardiovascular Cardiovascular exam: Present regular rate and normal rhythm Neurological Exam Neurological exam: Present alert and oriented X3 Medical Decision Making Medical Records Medical records reviewed: Yes I reviewed the patient's medical records. Screening: Per USPSTF and CDC recommendations, given the prevalence of disease in our region, it is our hospital?s policy to screen for HIV and viral Hepatitis for all patients aged 18 and over and those with ongoing risk factors. Shin Inquiry Pt receiving controlled substance: No Vital Signs: 01/11/24 16:19 01/11/24 16:30 01/11/24 16:59 Temperature 98.7 F Temperature Source Oral Pulse Rate 98 H 111 H Pulse Rate [Right Brachial] 116 H Respiratory Rate 18 Blood Pressure 120/65 101/55 L Blood Pressure [Right Arm] 132/64 Blood Pressure Mean Blood Pressure Mean [Right Arm] 86 02 Sat by Pulse Oximetry 89 L 90 L 94 L Oxygen Delivery Method Nasal Cannula Nasal Cannula Nasal Cannula Oxygen Flow Rate (LPM) 4 01/11/24 18:00 01/11/24 18:30 01/11/24 19:00 Temperature Temperature Source Pulse Rate 98 H 100 H 90 Pulse Rate [Right Brachial] Respiratory Rate Blood Pressure 114/59 L 121/62 122/67 Blood Pressure [Right Arm] Blood Pressure Mean 80 81 85 Blood Pressure Mean [Right Arm] 02 Sat by Pulse Oximetry 94 L 95 94 L Oxygen Delivery Method Nasal Cannula Nasal Cannula Nasal Cannula Oxygen Flow Rate (LPM) Lab Data Lab results reviewed: Yes I reviewed the patient's lab results. Lab Results 01/11/24 16:18: WBC 27.6 H*, RBC 3.45 L, Hgb 7.2 L, Hct 24.3 L, MCV 70.4 L, MCH 20.8 L, MCHC 29.5 L, RDW 18.4 H, Plt Count 769 H, MPV 7.1 L, Neut % (Auto) 92.8 H, Lymph % (Auto) 1.7 L, [facility] [facility] % (Auto) 4.6, Eos % (Auto) 0.6, Baso % (Auto) 0.3, Neut # (Auto) 25.6 H, Lymph # (Auto) 0.5 L, [facility] # (Auto) 1.3 H, Eos # (Auto) 0.2, Baso # (Auto) 0.1, Total Counted 100, Neutrophils % (Manual) 88 H, Band Neutrophils % 3.0, Lymphocytes % (Manual) 4 L, Monocytes % (Manual) 5, Platelet Estimate Moderate increase, RBC Morphology Not Reportable, Hypochromasia 3+, Anisocytosis 2+, Microcytosis 2+, Macrocytosis 1+, Ovalocytes 1+, Sodium 128 L, Potassium 4.1, Chloride 88 L, Carbon Dioxide 36 H, Anion Gap 8.1, BUN 17, C reatinine 0.50 L, Estimated Creat Clear 32, Estimated GFR 123, Est GFR ( Amer) 149, Glucose 181 H, Calcium 8.6, Magnesium 1.7, Total Bilirubin 0.6, AST 25, ALT 16, Alkaline Phosphatase 109, Total Protein 6.4, Albumin 3.1 L, Globulin 3.3 H, Albumin/Globulin Ratio 0.9 L, Procalcitonin 1.01, HIV 1&2 Antibody Rapid Nonreactive 01/11/24 16:42: Urine Color Yellow, Urine Appearance Clear, Urine pH 6.0, Ur Specific [place] >= 1.030, Urine Protein Trace, Urine Glucose (UA) Negative, Urine Ketones Trace, Urine Blood Negative, Urine Nitrate Negative, Urine Bilirubin 1+ A, Urine Urobilinogen 0.2, Ur Leukocyte Esterase Negative, Urine RBC 3-5, Urine WBC 10-20, Ur Squamous Epith Cells 10-20, Urine Bacteria 1+ 01/11/24 16:18 01/11/24 16:18 Orders (Tests/Meds): ED MEDICATIONS Generic Name Dose Route Start Last Admin Trade Name Freq PRN Reason Stop Dose Admin Acetaminophen 650 mg 01/11/24 20:07 Acetaminophen 325mg Tab PO 02/10/24 20:06 Q4HP PRN Fever or Mild Pain (1-3) Enoxaparin Sodium 40 mg 01/12/24 09:00 Enoxaparin 40mg/0.4ml Syringe SUBCUT 02/11/24 08:59 DAILY CY Azithromycin 500 mg/ Sodium 250 mls @ 250 mls/hr 01/11/24 18:15 01/11/24 19:59 Chloride IV 01/21/24 18:14 250 mls/hr Q24H CY Administration Cefepime HCl 2 gm/ Sodium 100 mls @ 200 mls/hr 01/11/24 20:15 01/11/24 20:24 Chloride IV 01/21/24 20:14 200 mls/hr Q12H CY Administration Vancomycin HCl 1,000 mg/ 250 mls @ 125 mls/hr 01/11/24 20:30 01/11/24 20:24 Sodium Chloride IV 01/11/24 22:29 125 mls/hr ONCE ONE Administration Miscellaneous 1 each 01/11/24 20:15 01/11/24 20:15 Vancomycin Consult Request NOTAPPLIC 02/10/24 20:14 1 each CONSULT PHARMACY CY Administration Ondansetron HCl 4 mg 01/11/24 20:25 01/11/24 20:36 Ondansetron 4mg/2ml Vial IV 01/11/24 20:26 4 mg ONCE ONE Administration Sodium Chloride 3 ml 01/11/24 18:11 Sodium Chloride 3% 15ml Neb 02/10/24 18:10 ONCE PRN INDUCE SPUTUM COLLECTION Discontinued Medications Generic Name Dose Route Start Last Admin Trade Name Seeq PRN Reason Stop Dose Admin Albuterol/Ipratropium 9 ml 01/11/24 18:11 01/11/24 19:07 Ipratropium/Albuterol 3 Ml Neb 01/11/24 18:12 Not Given ONCE ONE Hydromorphone HCl 0.5 mg 01/11/24 19:48 01/11/24 19:57 Hydromorphone 2mg/Ml Syringe IV 01/11/24 19:49 0.5 mg ONCE ONE Administration Ceftriaxone Sodium 1 gm/ 50 mls @ 100 mls/hr 01/11/24 18:11 01/11/24 18:55 Sodium Chloride IV 01/11/24 18:40 100 mls/hr ONCE ONE Administration Iopamidol 70 ml 01/11/24 19:40 01/11/24 19:42 Iopamidol-370 (76%);100ml Bottle IV 01/11/24 19:41 70 ml ONCE ONE Administration Sodium Chloride 40 ml 01/11/24 19:40 01/11/24 19:41 0.9 % Sodium Chloride 50 Ml Vial IV 01/11/24 19:41 40 ml ONCE ONE Administration Sodium Chloride 10 ml 01/11/24 19:40 01/11/24 19:42 Sodium Chloride 0.9% 10ml Syr (Rad Only) IV 01/11/24 19:41 10 ml ONCE ONE Administration ORDERS Category Date Time Status CT angio chest PE protocol Stat Cat Scan 01/11/24 18:12 Taken Pulmonology Consult [Consult to Pulmonology] [CONS] Cons 01/11/24 20:32 Active Routine Chest XR -- portable [XR chest portable] Stat Exams 01/11/24 17:46 Completed CBC w/Auto Diff [Complete Blood Count Auto Diff] Stat Lab 01/11/24 16:18 Completed CMP [Comprehensive Metabolic Panel] Stat Lab 01/11/24 16:18 Completed Complete Blood Count Auto Diff AMLAB Lab 01/12/24 06:00 Ordered Complete Blood Count Auto Diff AMLAB Lab 01/13/24 06:00 Ordered Complete Blood Count Auto Diff AMLAB Lab 01/14/24 06:00 Ordered Complete Blood Count Auto Diff AMLAB Lab 01/15/24 06:00 Ordered Complete Blood Count Auto Diff AMLAB Lab 01/16/24 06:00 Ordered Complete Blood Count Auto Diff AMLAB Lab 01/17/24 06:00 Ordered Complete Blood Count Auto Diff AMLAB Lab 01/18/24 06:00 Ordered Complete Blood Count Auto Diff AMLAB Lab 01/19/24 06:00 Ordered Complete Blood Count Auto Diff AMLAB Lab 01/20/24 06:00 Ordered Complete Blood Count Auto Diff AMLAB Lab 01/21/24 06:00 Ordered Comprehensive Metabolic Panel AMLAB Lab 01/12/24 06:00 Ordered Comprehensive Metabolic Panel AMLAB Lab 01/13/24 06:00 Ordered Comprehensive Metabolic Panel AMLAB Lab 01/14/24 06:00 Ordered Comprehensive Metabolic Panel AMLAB Lab 01/15/24 06:00 Ordered Comprehensive Metabolic Panel AMLAB Lab 01/16/24 06:00 Ordered Comprehensive Metabolic Panel AMLAB Lab 01/17/24 06:00 Ordered Comprehensive Metabolic Panel AMLAB Lab 01/18/24 06:00 Ordered Comprehensive Metabolic Panel AMLAB Lab 01/19/24 06:00 Ordered Comprehensive Metabolic Panel AMLAB Lab 01/20/24 06:00 Ordered Comprehensive Metabolic Panel AMLAB Lab 01/21/24 06:00 Ordered Full Resp Panel w/COVID ([facility]) Routine Lab 01/11/24 18:54 Received HIV (1&2) Antibody Rapid Stat Lab 01/11/24 16:18 Completed Hep C Ab with Reflex to RNA Stat Lab 01/11/24 16:18 Received Magnesium Stat Lab 01/11/24 16:18 Completed Procalcitonin Stat Lab 01/11/24 16:18 Completed UA [Urinalysis and Microscopic] Stat Lab 01/11/24 16:42 Completed Blood Culture Stat Micro 01/11/24 18:55 Received Sputum Culture & Gram Stain Stat Micro 01/11/24 18:11 Ordered Urine Culture Stat Micro 01/11/24 16:42 Received Tissue Perfus/Sepsis Re-Eval Date Performed: 01/11/24 Time Performed: 20:38 Medical Decision Narrative: In summary patient is a 68-year-old female who presents to the emergency department for evaluation of initially abnormal lab results . Patient is initially normotensive with a blood pressure 130/64 heart rate 116 respiratory rate 18 satting at 94% on 4 L by nasal cannula upon arrival, afebrile. Physical exam is remarkable for diminished breath sounds in the right middle lung balderas but no adventitious sounds noted. Patient has no increased work of breathing no accessory muscle use.. Differential diagnosis includes immunocompromised host, worsening lung cancer, infection such as pneumonia versus postobstructive pneumonia etc. Initial workup will be conducted with hematologic labs plain film chest x-ray. Initial interventions include Tylenol Toradol. Initial workup reviewed by me shows is significantly elevated white count of 27,000 with an absolute neutrophil count of 25.6 along with thrombophilia of 769 and H&H of 7.2 and 24.3 and MCHC of 29.5 suggesting iron deficiency as well. Patient CMP significant for sodium 128 potassium 4.3 but a gap of 8.1 creatinine 0.5 albumin of 3.1 a procalcitonin of 1.01 urinalysis that shows 1 of bilirubin and microscopic exam shows 3-5 red blood cells 10-20 white cells 10-20 epithelial cells 1+ bacteria showing contamination and my informal interpretation of her plain film chest x-ray shows bilateral, right greater than left, pneumonia. Given this I ordered a CTA of the chest for further delineation of the processes in her chest. My informal interpretation shows a wedge opacity in the right lung balderas with bibasilar atelectasis but no thrombus.. Given these findings I had interactive discussion with hospital medicine regarding patient management and patient will be admitted for further evaluation and care Critical Care Critical Care Time Critical Care Time: No
[2024-01-11 16:51] LABS: Microscopic, Urine URINE MICROSCOPIC (MICROSCOPIC)
[2024-01-11 16:55] LABS: Alanine Aminotransferase 16 U/L (12-78); Albumin Level 3.1 g/dl (3.5-5.0); Albumin/Globulin Ratio 0.9 (1.1-1.8); Alkaline Phosphatase 109 U/L (38-126); Anion Gap 8.1 mEq/L (5-15); Aspartate Amino Transferase 25 U/L (14-36); Bilirubin,Total 0.6 mg/dl (0.2-1.3); Blood Urea Nitrogen 17 mg/dl (7-17); Calcium 8.6 mg/dl (8.4-10.2); Carbon Dioxide 36 mmol/L (22.0-30.0); Chloride 88 mmol/L (98-107); Creatinine Clearance Estimated 32 mL/min (50-200); Estimated Glomerular Filt Rate 123 ml/min (>60); GFR (African American) 149 ML/MIN (>60); Globulin 3.3 g/dL (1.3-3.2); Glucose 181 mg/dl (74-100); Magnesium 1.7 mg/dl (1.6-2.3); Potassium 4.1 mmoL/L (3.5-5.1); Sodium 128 mmol/L (136-145); Total Protein,Serum 6.4 g/dl (6.3-8.2)
[2024-01-11 16:55] LABS: Appearance,Urine CLEAR (Clear); Blood, Urine Negative (Negative); Color,Urine YELLOW (Yellow); Glucose,Urine (UA) Negative (Negative); Ketones,Urine TRACE (Negative); Leukocyte Esterase,Urine Negative (Negative); Nitrate,Urine Negative (Negative); Protein,Urine TRACE (Negative); Specific Gravity, Urine >= 1.030 (1.005-1.030); Urobilinogen,Urine 0.2 EU/dl (0.2)
[2024-01-11 17:26] LABS: Basophils # 0.1 K/mm3 (0-0.2); Basophils % 0.3 % (0.1-2.0); Eosinophils # 0.2 K/mm3 (0.0-0.4); Eosinophils % 0.6 % (0.1-12.0); Hematocrit 24.3 % (37.0-47.0); Hemoglobin 7.2 g/dL (12.2-16.2); Lymphocytes # 0.5 K/mm3 (0.7-4.5); Lymphocytes % 1.7 % (10-50); Mean Corpuscular HGB Conc 29.5 g/dL (31.8-35.4); Mean Corpuscular Hemoglobin 20.8 pg (27.0-31.2); Mean Corpuscular Volume 70.4 fl (81-99); Mean Platelet Volume 7.1 fl (7.4-10.4); Monocytes # 1.3 K/mm3 (0.1-1.0); Monocytes % 4.6 % (1.7-9.3); Neutrophils # 25.6 K/mm3 (1.8-7.8); Neutrophils % 92.8 % (37.0-80.0); Platelet Count 769 K/mm3 (142-424); Red Blood Count 3.45 M/mm3 (4.20-5.40); Red Cell Distribution Width 18.4 % (11.5-17.5); White Blood Count 27.6 K/mm3 (4.8-10.8)
[2024-01-11 17:32] LABS: HIV (1&2) Antibody Rapid NONREACTIVE (NONREACTIVE)
[2024-01-11 17:34] LABS: MANUAL DIFFERENTIAL MANUAL DIFFERENTIAL (MANUAL DIFF)
--- NOTE | 2024-01-11 17:46 | XR_ITS ---
PROCEDURE INFORMATION: Exam: XR Chest Exam date and time: 01/11/2024 5:47 PM Age: 68 years old Clinical indication: Shortness of breath; Additional info: Weakness fatigue history of lung cancer TECHNIQUE: Imaging protocol: Radiologic exam of the chest. Views: 1 view. COMPARISON: CT ANGIO CHEST PE PROTOCOL 10/27/2023 5:52 PM FINDINGS: Lungs: Severe pneumonia in the right lower lobe. Underlying chronic interstitial lung disease and COPD. Left perihilar densities could be related to scarring. Pleural spaces: Unremarkable. No pleural effusion. No pneumothorax. Heart/Mediastinum: Unremarkable. No cardiomegaly. Bones/joints: Unremarkable. IMPRESSION: Severe right lower lobe pneumonia
--- NOTE | 2024-01-11 18:12 | CT_ITS ---
PROCEDURE INFORMATION: Exam: CTA Chest With Contrast Exam date and time: 01/11/2024 7:34 PM Age: 68 years old Clinical indication: Shortness of breath; Additional info: Leukocytosis, history of lung cancer TECHNIQUE: Imaging protocol: Computed tomographic angiography of the chest with contrast. Exam focused on the arteries. 3D rendering (Not supervised by radiologist): MIP and/or 3D reconstructed images were created by the technologist. Radiation optimization: All CT scans at this facility use at least one of these dose optimization techniques: automated exposure control; mA and/or kV adjustment per patient size (includes targeted exams where dose is matched to clinical indication); or iterative reconstruction. Contrast material: ISOVUE 370; Contrast volume: 70 ml; Contrast route: INTRAVENOUS (IV); COMPARISON: CT ANGIO CHEST PE PROTOCOL 10/27/2023 5:52 PM FINDINGS: Pulmonary arteries: Normal. No pulmonary emboli. Aorta: Unremarkable. No aortic aneurysm. No aortic dissection. Lungs: Chronic interstitial lung disease and COPD. Right lower lobe pneumonia. There is large area of consolidation in the right middle lobe which could reflect atelectasis. There is confluent soft tissue density in the mediastinum extending in the subcarinal region and bilateral perihilar regions concerning for malignancy. Obstruction of right lower lobe bronchus. Pleural spaces: Mild right pleural effusion . Heart: Unremarkable. No cardiomegaly. No pericardial effusion. Lymph nodes: Unremarkable. No enlarged lymph nodes. Bones/joints: Unremarkable. No acute fracture. Soft tissues: Unremarkable. IMPRESSION: 1. No pulmonary embolism 2. Chronic interstitial lung disease and COPD. Right lower lobe pneumonia. There is large area of consolidation in the right middle lobe which could reflect atelectasis. 3. There is confluent soft tissue density in the mediastinum extending in the subcarinal region and bilateral perihilar regions concerning for malignancy. 4. Obstruction of right lower lobe bronchus and severe narrowing of the right upper lobe bronchus.
[2024-01-11 18:21] LABS: Lymphocytes % 4 % (10-50); Monocytes % 5 % (2-9); Neutrophils % 88 % (42-76); Total Cells Counted 100
[2024-01-11 18:22] LABS: Anisocytosis 2+; Hypochromasia 3+; Microcytosis 2+; Platelet Estimate Moderate Increase
[2024-01-11 18:23] LABS: Macrocytosis 1+; Ovalocytes 1+
[2024-01-11] MEDS: AZITHROMYCIN 500 MG in 0.9 % SODIUM CHLORIDE 250 ML 250 MG IV ×2 (18:55→19:59)
[2024-01-11] MEDS: CEFTRIAXONE 1 GM 1 GM in 0.9 % SODIUM CHLORIDE 50 ML IV (18:55)
[2024-01-11 18:58] LABS: Bilirubin,Urine 1+ (Negative)
[2024-01-11 18:59] LABS: Bacteria,Urine 1+ /lpf
[2024-01-11 19:00] LABS: Adenovirus,PCR Not Detected (NotDetected); Bordetella Pertussis Not Detected (NotDetected); Chlamydophila Pneumoniae, PCR Not Detected (NotDetected); Coronavirus 19, PCR Not Detected (NotDetected); Coronavirus 229E Not Detected (NotDetected); Coronavirus NL63 Not Detected (NotDetected); Coronavirus OC43 Not Detected (NotDetected); Coronovirus HKU1,PCR Not Detected (NotDetected); Human Metapneumovirus Not Detected (NotDetected); Influenza A, PCR Not Detected (NotDetected); Influenza AH1, 2009 Not Detected (NotDetected); Influenza AH1, PCR Not Detected (NotDetected); Influenza AH3,PCR Not Detected (NotDetected); Influenza B, PCR Not Detected (NotDetected); Mycoplasma Pneumoniae, PCR Not Detected (NotDetected); Parainfluenza 1, PCR Not Detected (NotDetected); Parainfluenza 2, PCR Not Detected (NotDetected); Parainfluenza 3, PCR Not Detected (NotDetected); Parainfluenza 4, PCR Not Detected (NotDetected); Respiratory Syncytial Virus Not Detected (NotDetected); Rhinovirus/Enterovirus Not Detected (NotDetected)
[2024-01-11 19:38] LABS: Procalcitonin 1.01 ng/mL (0.0-2.0)
[2024-01-11] MEDS: 0.9 % SODIUM CHLORIDE 50 ML VIAL 40 ML IV (19:41)
[2024-01-11] MEDS: SODIUM CHLORIDE 0.9% 10ML SYR (RAD ONLY) 10 ML IV (19:42)
[2024-01-11] MEDS: IOPAMIDOL-370 (76%);100ML BOTTLE 70 ML IV (19:42)
[2024-01-11] MEDS: HYDROMORPHONE 2MG/ML SYRINGE 0.5 MG IV (19:57)
[2024-01-11] MEDS: VANCOMYCIN CONSULT REQUEST 1 EACH NOTAPPLIC (20:15)
[2024-01-11] MEDS: CEFEPIME HCL 2 GM in 0.9 % SODIUM CHLORIDE 100 ML IV (20:24)
[2024-01-11] MEDS: VANCOMYCIN HCL 1,000 MG in 0.9 % SODIUM CHLORIDE 250 ML 125 MG IV (20:24)
--- NOTE | 2024-01-11 20:35 | P.HP_ITS ---
History of Present Illness *Admission Date: 01/11/24 *Reason for visit:: Shortness of breath, increasing oxygen requirements *History of present illness: Hardik Melo is a 68-year-old female with a medical history significant for right lung cancer (undergoing radiation therapy at [facility]), left lung cancer in remission, current tobacco smoker, CAD s/p 2 stents, A-fib (on Eliquis) who presents after her PCP notified her of low iron levels and to go to the ED. However, patient states she has been having somewhat increased shortness of breath over the past week with increase in oxygen requirements from 2.5 L to 4 L at night. She also notes chronic productive cough that is slightly worse recently. Denies fever/chills, chest pain, abdominal pain, urinary symptoms, constipation/diarrhea. Workup in the ED significant for WBC 27.6, hemoglobin 7.2, MCV 70.4, sodium 128. Respiratory panel normal. CXR suggestive of severe right lower lobe pneumonia, chest CTA suggestive of the same as well as obstruction of right lower lobe bronchus and severe narrowing of the right upper lobe bronchus. Case was discussed with ED provider and decision was made to admit patient for sepsis secondary to community-acquired pneumonia. [facility] Disclaimer: The information contained in this section may have been updated after the patient was seen, as this information can be updated by other users. Medical History Angina pectoris Acute and chronic respiratory failure with hypoxia Atrial fibrillation with RVR Primary lung cancer Acute hypoxemic respiratory failure Lung cancer Orthopnea Hemoptysis Smoking greater than 30 pack years Pulmonary emphysema History of lung cancer in adulthood Hilar lymphadenopathy Nodule of right lung Stenosis of carotid artery Cancer Migraine Heart attack NSCLC of left lung Anxiety Tooth abscess Antibiotics and diflucan for vaginitis from antibiotics. F/U with Dr Sherwood Surgical History History of bladder surgery History of heart artery stent History of hysterectomy Family History Other Cancer Heart attack Hypertension Stroke Social History (Updated 01/11/24 @ 22:47 by Tatiana Melo RN) Smoking Status: Current every day smoker tobacco type: cigarettes packs per day: 1 alcohol intake: never substance use type: denies use current occupational status: other Travel in the last 8 weeks: None Other Medical History Have you received the Flu Vaccine for this season: No Have you received the Pneumonia Vaccine: No Meds Home Medications and Allergies Home Medications ?Medication ?Instructions ?Recorded ?Confirmed ?Type ondansetron 4 mg disintegrating 4 mg PO QID PRN nausea and 10/27/23 01/11/24 Rx tablet vomiting #10 tabs prednisone 50 mg tablet 50 mg PO DAILY 5 days #5 tabs 10/27/23 01/11/24 Rx apixaban 5 mg tablet (Eliquis) 5 mg PO BID #60 tabs 12/14/23 01/11/24 Rx amiodarone 200 mg tablet 200 mg PO DAILY 12/21/23 01/11/24 History diazepam 5 mg tablet (Valium) 5 mg PO DAILY Anxiety 12/21/23 01/11/24 History oxycodone 5 mg tablet 5 mg PO BID PRN Pain 12/21/23 01/11/24 History albuterol sulfate 90 mcg/actuation 2 puff inhalation DAILY PRN SOB 01/11/24 01/11/24 History aerosol inhaler New Prescriptions to Start Prescriptions: Allergies Allergy/AdvReac Type Severity Reaction Status Date / Time diazepam AdvReac Severe Vomiting Verified 12/21/23 14:27 aspirin AdvReac Other Verified 12/21/23 14:27 Exam Data for Last 24 hours Vital signs and Labs for Last 24 Hours: Temp Pulse Resp BP Pulse Ox O2 Del Method O2 Flow Rate 98.7 F 90 18 122/67 94 L Nasal Cannula 4 01/11/24 16:19 01/11/24 19:00 01/11/24 16:19 01/11/24 19:00 01/11/24 19:00 01/11/24 19:00 01/11/24 16:19 Laboratory Results - last 24 hr 01/11/24 16:18: WBC 27.6 H*, RBC 3.45 L, Hgb 7.2 L, Hct 24.3 L, MCV 70.4 L, MCH 20.8 L, MCHC 29.5 L, RDW 18.4 H, Plt Count 769 H, MPV 7.1 L, Neut % (Auto) 92.8 H, Lymph % (Auto) 1.7 L, [place] % (Auto) 4.6, Eos % (Auto) 0.6, Baso % (Auto) 0.3, Neut # (Auto) 25.6 H, Lymph # (Auto) 0.5 L, [place] # (Auto) 1.3 H, Eos # (Auto) 0.2, Baso # (Auto) 0.1, Total Counted 100, Neutrophils % (Manual) 88 H, Band Neutrophils % 3.0, Lymphocytes % (Manual) 4 L, Monocytes % (Manual) 5, Platelet Estimate Moderate increase, RBC Morphology Not Reportable, Hypochromasia 3+, Anisocytosis 2+, Microcytosis 2+, Macrocytosis 1+, Ovalocytes 1+, Sodium 128 L, Potassium 4.1, Chloride 88 L, Carbon Dioxide 36 H, Anion Gap 8.1, BUN 17, C reatinine 0.50 L, Estimated Creat Clear 32, Estimated GFR 123, Est GFR ( Amer) 149, Glucose 181 H, Calcium 8.6, Magnesium 1.7, Total Bilirubin 0.6, AST 25, ALT 16, Alkaline Phosphatase 109, Total Protein 6.4, Albumin 3.1 L, Globulin 3.3 H, Albumin/Globulin Ratio 0.9 L, Procalcitonin 1.01, HIV 1&2 Antibody Rapid Nonreactive 01/11/24 16:42: Urine Color Yellow, Urine Appearance Clear, Urine pH 6.0, Ur Specific [place] >= 1.030, Urine Protein Trace, Urine Glucose (UA) Negative, Urine Ketones Trace, Urine Blood Negative, Urine Nitrate Negative, Urine Bilirubin 1+ A, Urine Urobilinogen 0.2, Ur Leukocyte Esterase Negative, Urine RBC 3-5, Urine WBC 10-20, Ur Squamous Epith Cells 10-20, Urine Bacteria 1+ I & O for Last 24 hours: Intake & Output 01/08/24 01/09/24 01/10/24 01/11/24 23:59 23:59 23:59 23:59 Weight 37.195 kg Constitutional Constitutional: no acute distress and cachectic *Routine HEENT Exam Head: Present normocephalic Eye: Present EOMI and PERRL ENT: Present mucous membranes moist *Routine Neck Exam Neck: Present supple; Absent lymphadenopathy *Routine Respiratory Exam Respiratory: Present CTA bilaterally *Routine Cardiovascular Exam Cardiovascular: Present RRR *Routine Abdominal Exam Abdominal: Present soft and normoactive bowel sounds; Absent tenderness *Routine Rectal Exam Rectal:: deferred *Routine Genitalia Exam Genitalia:: deferred *Routine Extremities Exam Extremities: Absent cyanosis, clubbing or edema *Routine Skin Exam Skin: Present warm; Absent rash *Routine Neurological Exam Neurological: Present alert and oriented X3 Assessment and Plan *Assessment and plan (1) Sepsis without septic shock: Status: Acute Category: Medical Code(s): A41.9 - Sepsis, unspecified organism (2) Paroxysmal atrial fibrillation: Status: Acute Category: Medical Code(s): I48.0 - Paroxysmal atrial fibrillation (3) CAD (coronary atherosclerotic disease): Status: Acute Qualifiers: Coronary Disease-Associated Artery/Lesion type: [place] artery [place] vs. transplanted heart: [place] heart Associated angina: without angina Qualified Code(s): I25.10 - Atherosclerotic heart disease of [place] coronary artery without angina pectoris Category: Medical Code(s): I25.10 - Atherosclerotic heart disease of [place] coronary artery without angina pectoris (4) Community acquired pneumonia: Status: Acute Category: Medical Code(s): J18.9 - Pneumonia, unspecified organism (5) Acute and chronic respiratory failure with hypoxia: Status: Acute Category: Medical Code(s): J96.21 - Acute and chronic respiratory failure with hypoxia Plan Hardik Melo is a 68-year-old female with a medical history significant for right lung cancer (undergoing radiation therapy at [facility]), left lung cancer in remission, current tobacco smoker, CAD s/p 2 stents, A-fib (on Eliquis), 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 However, patient states she has been having somewhat increased shortness of breath over the past week with increase in oxygen requirements from 2.5 L to 4 L at night. She also notes chronic prod uctive cough that is slightly worse recently. Denies fever/chills, chest pain, abdominal pain, urinary symptoms, constipation/diarrhea. Workup in the ED significant for WBC 27.6, hemoglobin 7.2, MCV 70.4, sodium 128. Respiratory panel normal. CXR suggestive of severe right lower lobe pneumonia, chest CTA suggestive of the same as well as obstruction of right lower lobe bronchus and severe narrowing of the right upper lobe bronchus. Case was discussed with ED provider and decision was made to admit patient for sepsis secondary to community-acquired pneumonia. #Acute on chronic hypoxic respiratory failure #Community-acquired pneumonia #Sepsis ? CXR, CTA chest suggestive of severe right lower lobe pneumonia in the setting of lung cancer. ? Increase in home oxygen from 2.5 L to 4 L. Patient however does not look toxic appearing. ? Started vancomycin, cefepime, azithromycin day 5. ? Follow-up MRSA screen, plan to discontinue vancomycin if negative. ? Follow-up procalcitonin. ? Follow-up blood, sputum cultures. ? Pulmonology consulted in setting of obstructive pneumonia and lung cancer, pending recommendations. N.p.o. at midnight for possible bronchoscopy tomorrow if needed. #Acute on chronic HFmrEF #CAD s/p 2 stents #History of left subclavian artery stenosis ? Several week worsening of lower extremity edema. BNP 1250. ? ECHO 12/10/2023 LVEF 45%, severe hypokinesis of the basal septal, inferior septal, and anteroseptal LV ch[place]. ? Evaluated by cardiology outpatient, has a known RCA in-stent restenosis. Planned for outpatient [facility] and left subclavian angiogram with history of left subclavian artery stenosis. ? IV Lasix 40 mg daily. ? Started Plavix (allergic to aspirin), atorvastatin 40 mg. Does not appear patient has been taking these medications. ? Cardiology consulted, pending recommendations. #Chronic hyponatremia ? Initial sodium 128, however sodium in the past year has been high 120s, low 130s. ? This is in the setting of lung cancer which is highly suggestive of SIADH. ? Started salt tab 1000 mg daily. #Microcytic anemia ? Initial hemoglobin 7.2, MCV 70. ? Follow-up iron studies. ? Plan to ask about history of colonoscopy in the morning. ? However, hold off repleting iron at this time given active infection. #Lung cancer #Right lower lobe bronchus obstruction #Right upper lobe bronchus narrowing ? Right lung cancer undergoing radiation therapy at [facility]. ? History of left lung cancer in remission after 30 rounds of radiation therapy. ? Bronchus abnormalities found on CTA chest. Likely in the setting of right- sided lung cancer. ? Pulmonology consulted, pending recommendations. #COPD #Current tobacco smoker ? COPD currently does not appear to be in exacerbation. ? DuoNebs as needed. ? Patient is symptomatic and needs home maintenance inhaler. Pending pulmonology recommendations. ? Patient refuses nicotine patches. ? Counseled on smoke cessation, patient states she has decreased significantly and smoking to ~4 cigarettes a day. #A-fib ? Currently rate controlled. ? Resumed home amiodarone, Eliquis. #Severe protein malnutrition ? Nutrition consulted, pending recommendations. Full code DVT prophylaxis: Home Eliquis
[2024-01-11] MEDS: ONDANSETRON 4MG/2ML VIAL 4 MG IV (20:36)
--- NOTE | 2024-01-11 21:08 | PC.NURSE ---
Called report to Crystal TERRAZAS on Med/Surg
[2024-01-11 23:18] LABS: NT Pro Brain Natriuretic Pep. 1250 pg/mL (0-125)
[2024-01-12] VITALS (26 sets, daily range): BP systolic 79–138; BP diastolic 42–87; PULSE 90–109; RESP 16–22; TEMP 36.3–37.8; O2SAT 92–98; BMI 15.5
[2024-01-12] MEDS: TRAZODONE 50MG TABLET 25 MG PO (00:42)
[2024-01-12] MEDS: OXYCODONE 5MG IMMEDIATE RELEASE TABLET 5 MG PO ×2 (00:42→14:49)
[2024-01-12 07:09] LABS: Basophils % 0.1 % (0.1-2.0); Eosinophils # 0.1 K/mm3 (0.0-0.4); Eosinophils % 0.3 % (0.1-12.0); Lymphocytes # 0.6 K/mm3 (0.7-4.5); Lymphocytes % 3.1 % (10-50); Mean Corpuscular HGB Conc 28.4 g/dL (31.8-35.4); Mean Corpuscular Hemoglobin 20.4 pg (27.0-31.2); Mean Corpuscular Volume 71.8 fl (81-99); Mean Platelet Volume 6.9 fl (7.4-10.4); Monocytes # 1.2 K/mm3 (0.1-1.0); Monocytes % 6.3 % (1.7-9.3); Neutrophils # 16.4 K/mm3 (1.8-7.8); Neutrophils % 90.1 % (37.0-80.0); Platelet Count 606 K/mm3 (142-424); Red Blood Count 2.69 M/mm3 (4.20-5.40); Red Cell Distribution Width 18.3 % (11.5-17.5); White Blood Count 18.2 K/mm3 (4.8-10.8)
[2024-01-12 07:11] LABS: Alanine Aminotransferase 13 U/L (12-78); Albumin Level 2.5 g/dl (3.5-5.0); Albumin/Globulin Ratio 0.9 (1.1-1.8); Alkaline Phosphatase 158 U/L (38-126); Anion Gap 4.9 mEq/L (5-15); Aspartate Amino Transferase 24 U/L (14-36); Bilirubin,Total 0.3 mg/dl (0.2-1.3); Blood Urea Nitrogen 12 mg/dl (7-17); Calcium 7.9 mg/dl (8.4-10.2); Carbon Dioxide 37 mmol/L (22.0-30.0); Chloride 93 mmol/L (98-107); Creatinine Clearance Estimated 32 mL/min (50-200); Estimated Glomerular Filt Rate 159 ml/min (>60); GFR (African American) 193 ML/MIN (>60); Globulin 2.8 g/dL (1.3-3.2); Glucose 150 mg/dl (74-100); Potassium 3.9 mmoL/L (3.5-5.1); Sodium 131 mmol/L (136-145); Total Protein,Serum 5.3 g/dl (6.3-8.2)
[2024-01-12 07:19] LABS: Hematocrit 19.3 % (37.0-47.0); MANUAL DIFFERENTIAL MANUAL DIFFERENTIAL (MANUAL DIFF)
[2024-01-12 07:20] LABS: Hemoglobin 5.5 g/dL (12.2-16.2)
[2024-01-12 07:30] LABS: Total Iron Binding Capacity 195 ug/dL (265-497)
--- NOTE | 2024-01-12 07:44 | EXP.PHA.CONS ---
Pharmacy Consult Date: 01/12/24 Time: 07:44 Referring provider: DR HYDE Reason for Consult:: VANCOMYCIN DOSING CONSULT Allergies Allergy/AdvReac Type Severity Reaction Status Date / Time diazepam AdvReac Severe Vomiting Verified 12/21/23 14:27 aspirin AdvReac Other Verified 12/21/23 14:27 Home Medications ?Medication ?Instructions ?Recorded ?Confirmed ?Type ondansetron 4 mg disintegrating 4 mg PO QID PRN nausea and 10/27/23 01/11/24 Rx tablet vomiting #10 tabs prednisone 50 mg tablet 50 mg PO DAILY 5 days #5 tabs 10/27/23 01/11/24 Rx apixaban 5 mg tablet (Eliquis) 5 mg PO BID #60 tabs 12/14/23 01/11/24 Rx amiodarone 200 mg tablet 200 mg PO DAILY 12/21/23 01/11/24 History diazepam 5 mg tablet (Valium) 5 mg PO DAILY Anxiety 12/21/23 01/11/24 History oxycodone 5 mg tablet 5 mg PO BID PRN Pain 12/21/23 01/11/24 History albuterol sulfate 90 mcg/actuation 2 puff inhalation DAILY PRN SOB 01/11/24 01/11/24 History aerosol inhaler New Prescriptions to Start Prescriptions: Height: 1.55 m Weight: 37.195 kg Laboratory Results:: Laboratory Results - last 24 hr 01/11/24 16:18: WBC 27.6 H*, RBC 3.45 L, Hgb 7.2 L, Hct 24.3 L, MCV 70.4 L, MCH 20.8 L, MCHC 29.5 L, RDW 18.4 H, Plt Count 769 H, MPV 7.1 L, Neut % (Auto) 92.8 H, Lymph % (Auto) 1.7 L, [place] % (Auto) 4.6, Eos % (Auto) 0.6, Baso % (Auto) 0.3, Neut # (Auto) 25.6 H, Lymph # (Auto) 0.5 L, [place] # (Auto) 1.3 H, Eos # (Auto) 0.2, Baso # (Auto) 0.1, Total Counted 100, Neutrophils % (Manual) 88 H, Band Neutrophils % 3.0, Lymphocytes % (Manual) 4 L, Monocytes % (Manual) 5, Platelet Estimate Moderate increase, RBC Morphology Not Reportable, Hypochromasia 3+, Anisocytosis 2+, Microcytosis 2+, Macrocytosis 1+, Ovalocytes 1+, Sodium 128 L, Potassium 4.1, Chloride 88 L, Carbon Dioxide 36 H, Anion Gap 8.1, BUN 17, Creatinine 0.50 L, Estimated Creat Clear 32, Estimated GFR 123, Est GFR ( Amer) 149, Glucose 181 H, Calcium 8.6, Magnesium 1.7, Total Bilirubin 0.6, AST 25, ALT 16, Alkaline Phosphatase 109, NT-Pro-B Natriuret Pep 1250 H, Total Protein 6.4, Albumin 3.1 L, Globulin 3.3 H, Albumin/Globulin Ratio 0.9 L, Procalcitonin 1.01, HIV 1&2 Antibody Rapid Nonreactive 01/11/24 16:42: Urine Color Yellow, Urine Appearance Clear, Urine pH 6.0, Ur Specific [place] >= 1.030, Urine Protein Trace, Urine Glucose (UA) Negative, Urine Ketones Trace, Urine Blood Negative, Urine Nitrate Negative, Urine Bilirubin 1+ A, Urine Urobilinogen 0.2, Ur Leukocyte Esterase Negative, Urine RBC 3-5, Urine WBC 10-20, Ur Squamous Epith Cells 10-20, Urine Bacteria 1+ 01/11/24 18:54: Chlamy pneumoniae PCR Not detected, Adenovirus (PCR) Not detected, B. pertussis DNA (PCR) Not detected, Coronavirus OC43 (PCR) Not detected, Coronavirus HKU1 (PCR) Not detected, Coronavirus 229E (PCR) Not detected, SARS-CoV-2 (PCR) Not detected, Coronavirus NL63 (PCR) Not detected, Human Metapneumovir PCR Not detected, Influenza A (H1) PCR Not detected, Influ A (H1N1/09) PCR Not detected, Influenza A (H3) PCR Not detected, Influenza Type A (PCR) Not detected, Influenza Type B (PCR) Not detected, M. pneumoniae (PCR) Not detected, Parainfluenza 1 (PCR) Not detected, Parainfluenza 2 (PCR) Not detected, Parainfluenza 3 (PCR) Not detected, Parainfluenza 4 (PCR) Not detected, RSV (PCR) Not detected, Entero/Rhino (PCR) Not detected 01/12/24 05:45: WBC 18.2 H D, RBC 2.69 L, Hgb 5.5 L* D, Hct 19.3 L*, MCV 71.8 L, MCH 20.4 L, MCHC 28.4 L, RDW 18.3 H, Plt Count 606 H, MPV 6.9 L, Neut % (Auto) 90.1 H, Lymph % (Auto) 3.1 L, [place] % (Auto) 6.3, Eos % (Auto) 0.3, Baso % (Auto) 0.1, Neut # (Auto) 16.4 H, Lymph # (Auto) 0.6 L, [place] # (Auto) 1.2 H, Eos # (Auto) 0.1, Baso # (Auto) 0.0, Sodium 131 L, Potassium 3.9, Chloride 93 L, Carbon Dioxide 37 H, Anion Gap 4.9 L, BUN 12 D, Creatinine 0.40 L, Estimated Creat Clear 32, Estimated GFR 159, Est GFR ( Amer) 193 D, Glucose 150 H, Calcium 7.9 L, TIBC 195 L, Total Bilirubin 0.3, AST 24, ALT 13, Alkaline Phosphatase 158 H, Total Protein 5.3 L, Albumin 2.5 L D, Globulin 2.8, Albumin/Globulin Ratio 0.9 L 01/12/24 07:40: Crossmatch (AHG) See Detail Medical History: Medical History (Updated 01/12/24 @ 00:48 by Kam Hyde MD) Angina pectoris Acute and chronic respiratory failure with hypoxia Atrial fibrillation with RVR Primary lung cancer Acute hypoxemic respiratory failure Lung cancer Orthopnea Hemoptysis Smoking greater than 30 pack years Pulmonary emphysema History of lung cancer in adulthood Hilar lymphadenopathy Nodule of right lung Stenosis of carotid artery Cancer Migraine Heart attack NSCLC of left lung Anxiety Tooth abscess Assessment and Plan Assessment and plan all Dx Assessment and Plan for all problems:: Pharmacokinetic dosing service Objective: Age: 68 yo Serum creatinine: 1 mg/dL Height: 61.0 Inches Weight (kg): 37.195 Diagnosis: PNEUMONIA/SEPSIS Assessment: IBW (kg): 47.80 Dosing wt(kg): 37.195 Estimated Creatinine clearance (ml/min): 32.1 CRCL method: Cockcroft and Gault using ibw(default). Drug selected: Vancomycin Loading dose (mg): 1000 MG Vd (liters): 29.8 (factor used: 0.8 L/kg) Jaxon (hr-1): 0.031 Half life (hrs): 22.36 CLvanco=?? 0.924 L/hr Recommended dose: 750 mg Interval: 36 hrs Infusion time (hrs): 2.0 Predicted peak (mcg/mL): 36.3 Predicted trough (mcg/mL): 12.65 Total body weight is being used for vancomycin dosing. Recommendations: Give Vancomycin 750 mg q 36 hrs with an expected Cpeak of 36.3 mcg/ml and an expected Ctrough of 12.65 mcg/ml AUC 0-24 /MACK Data: MACK 0.5 mcg/mL:?? AUC/MACK:? 1082.3 MACK 1.0 mcg/mL:?? AUC/MACK:? 541.1 --------- MACK 1.5 mcg/mL:?? AUC/MACK:? 360.8 MACK 2.0 mcg/mL:?? AUC/MACK:? 270.6 Thank you for the consult
[2024-01-12 07:54] LABS: Ferritin 56.5 ng/ml (11.1-264)
[2024-01-12 08:07] LABS: Iron 22 ug/dL (37-170)
[2024-01-12] MEDS: FUROSEMIDE 40MG/4ML VIAL 40 MG IV (08:23)
[2024-01-12] MEDS: CEFEPIME HCL 2 GM in 0.9 % SODIUM CHLORIDE 100 ML IV (08:24)
[2024-01-12] MEDS: APIXABAN 5MG TABLET 5 MG PO ×2 (08:24→20:28)
[2024-01-12] MEDS: AMIODARONE 200MG TABLET 200 MG PO (08:24)
[2024-01-12] MEDS: SODIUM CHLORIDE 1,000MG TABLET 1000 MG PO (08:24)
--- NOTE | 2024-01-12 08:46 | HMH.PHAINT1 ---
Pharmacy Intervention Comments: HOME MEDICATIONS VERIFIED WITH OUTPATIENT PHARMACY AND PATIENT INTERVIEW
[2024-01-12 09:22] LABS: HCV Ab Non Reactive (Non Reactive)
--- NOTE | 2024-01-12 09:25 | EXP.PULM.CON ---
History of Present Illness History of present illness: Ms. Melo is a 68-year-old female greater than [id number] smoking, squamous cell lung cancer diagnosed in March 2023 presented with worsening respiratory distress leukocytosis and pulmonary was called for further evaluation and management. [facility] Disclaimer: The information contained in this section may have been updated after the patient was seen, as this information can be updated by other users. Medical History (Updated 01/12/24 @ 10:26 by Jose Sellers MD) Lung collapse Angina pectoris Acute and chronic respiratory failure with hypoxia Atrial fibrillation with RVR Primary lung cancer Acute hypoxemic respiratory failure Lung cancer Orthopnea Hemoptysis Smoking greater than 30 pack years Pulmonary emphysema History of lung cancer in adulthood Hilar lymphadenopathy Nodule of right lung Stenosis of carotid artery Cancer Migraine Heart attack NSCLC of left lung Anxiety Tooth abscess Surgical History History of bladder surgery History of heart artery stent History of hysterectomy Family History Other Cancer Heart attack Hypertension Stroke Social History (Updated 01/11/24 @ 22:47 by Tatiana Melo RN) Smoking Status: Current every day smoker tobacco type: cigarettes packs per day: 1 alcohol intake: never substance use type: denies use current occupational status: other Travel in the last 8 weeks: None Review of Systems Constitutional Constitutional: Reports anorexia, Reports body ache(s) and Reports fatigue Eyes Eyes: Denies eye discharge, Denies dry eyes, Denies irritation and Denies itchy eyes ENT Ears, Nose, Mouth, and Throat: Denies epistaxis, Denies facial pain, Denies lip swelling and Denies throat swelling *Cardiovascular Cardiovascular: Reports dyspnea and Reports dyspnea on exertion *Respiratory Respiratory: Reports chest congestion, Reports cough, Reports dyspnea, Reports dyspnea on exertion, Reports excessive phlegm production, Denies hemoptysis, Denies pain on inspiration, Denies pain with cough and Reports wheezing *Gastrointestinal Gastrointestinal: Denies abdominal pain, Denies belching and Denies cramping *Musculoskeletal Musculoskeletal: Reports back pain, Reports myalgias and Reports other (No small joint swelling or Pain) Psychiatric Psychiatric: Denies homicidal ideation and Denies suicidal ideation Endocrine Endocrine: Reports fatigue and Denies heat intolerance Hematologic/Lymphatic Hematologic/Lymphatic: Denies easy bleeding and Denies lymphadenopathy Allergic/Immunologic Allergic/Immunologic: Denies itchy eyes, Denies lip swelling, Denies throat swelling and Reports wheezing Pulmonology Exam Inpatient Vital signs and Labs for Last 24 Hours: Temp Pulse Resp BP Pulse Ox O2 Del Method O2 Flow Rate 97.4 F L 104 H 22 113/51 L 93 L Nasal Cannula 6 01/12/24 08:00 01/12/24 08:00 01/12/24 08:00 01/12/24 08:00 01/12/24 08:00 01/12/24 08:00 01/12/24 08:00 Laboratory Results - last 24 hr 01/11/24 16:18: WBC 27.6 H*, RBC 3.45 L, Hgb 7.2 L, Hct 24.3 L, MCV 70.4 L, MCH 20.8 L, MCHC 29.5 L, RDW 18.4 H, Plt Count 769 H, MPV 7.1 L, Neut % (Auto) 92.8 H, Lymph % (Auto) 1.7 L, [place] % (Auto) 4.6, Eos % (Auto) 0.6, Baso % (Auto) 0.3, Neut # (Auto) 25.6 H, Lymph # (Auto) 0.5 L, [place] # (Auto) 1.3 H, Eos # (Auto) 0.2, Baso # (Auto) 0.1, Total Counted 100, Neutrophils % (Manual) 88 H, Band Neutrophils % 3.0, Lymphocytes % (Manual) 4 L, Monocytes % (Manual) 5, Platelet Estimate Moderate increase, RBC Morphology Not Reportable, Hypochromasia 3+, Anisocytosis 2+, Microcytosis 2+, Macrocytosis 1+, Ovalocytes 1+, Sodium 128 L, Potassium 4.1, Chloride 88 L, Carbon Dioxide 36 H, Anion Gap 8.1, BUN 17, Creatinine 0.50 L, Estimated Creat Clear 32, Estimated GFR 123, Est GFR ( Amer) 149, Glucose 181 H, Calcium 8.6, Magnesium 1.7, Total Bilirubin 0.6, AST 25, ALT 16, Alkaline Phosphatase 109, NT-Pro-B Natriuret Pep 1250 H, Total Protein 6.4, Albumin 3.1 L, Globulin 3.3 H, Albumin/Globulin Ratio 0.9 L, Procalcitonin 1.01, Hepatitis C Antibody Non reactive, HIV 1&2 Antibody Rapid Nonreactive 01/11/24 16:42: Urine Color Yellow, Urine Appearance Clear, Urine pH 6.0, Ur Specific [place] >= 1.030, Urine Protein Trace, Urine Glucose (UA) Negative, Urine Ketones Trace, Urine Blood Negative, Urine Nitrate Negative, Urine Bilirubin 1+ A, Urine Urobilinogen 0.2, Ur Leukocyte Esterase Negative, Urine RBC 3-5, Urine WBC 10-20, Ur Squamous Epith Cells 10-20, Urine Bacteria 1+ 01/11/24 18:54: Chlamy pneumoniae PCR Not detected, Adenovirus (PCR) Not detected, B. pertussis DNA (PCR) Not detected, Coronavirus OC43 (PCR) Not detected, Coronavirus HKU1 (PCR) Not detected, Coronavirus 229E (PCR) Not detected, SARS-CoV-2 (PCR) Not detected, Coronavirus NL63 (PCR) Not detected, Human Metapneumovir PCR Not detected, Influenza A (H1) PCR Not detected, Influ A (H1N1/09) PCR Not detected, Influenza A (H3) PCR Not detected, Influenza Type A (PCR) Not detected, Influenza Type B (PCR) Not detected, M. pneumoniae (PCR) Not detected, Parainfluenza 1 (PCR) Not detected, Parainfluenza 2 (PCR) Not detected, Parainfluenza 3 (PCR) Not detected, Parainfluenza 4 (PCR) Not detected, RSV (PCR) Not detected, Entero/Rhino (PCR) Not detected 01/12/24 05:45: WBC 18.2 H D, RBC 2.69 L, Hgb 5.5 L* D, Hct 19.3 L*, MCV 71.8 L, MCH 20.4 L, MCHC 28.4 L, RDW 18.3 H, Plt Count 606 H, MPV 6.9 L, Neut % (Auto) 90.1 H, Lymph % (Auto) 3.1 L, [place] % (Auto) 6.3, Eos % (Auto) 0.3, Baso % (Auto) 0.1, Neut # (Auto) 16.4 H, Lymph # (Auto) 0.6 L, [place] # (Auto) 1.2 H, Eos # (Auto) 0.1, Baso # (Auto) 0.0, Sodium 131 L, Potassium 3.9, Chloride 93 L, Carbon Dioxide 37 H, Anion Gap 4.9 L, BUN 12 D, Creatinine 0.40 L, Estimated Creat Clear 32, Estimated GFR 159, Est GFR ( Amer) 193 D, Glucose 150 H, Calcium 7.9 L, Iron 22 L, TIBC 195 L, Iron Saturation 11.71000 L, Ferritin 56.5, Total Bilirubin 0.3, AST 24, ALT 13, Alkaline Phosphatase 158 H, Total Protein 5.3 L, Albumin 2.5 L D, Globulin 2.8, Albumin/Globulin Ratio 0.9 L 01/12/24 07:40: Crossmatch (AHG) See Detail I & O for Labs for Last 24 Hours: Intake & Output 01/09/24 01/10/24 01/11/24 01/12/24 23:59 23:59 23:59 23:59 Intake Total 360 / 360 Output Total 0 / 0 Balance 360 / 360 Weight 82 lb 81 lb 15.839 oz Microbiology Reports for the Last 24 Hours: Microbiology 01/11/24 07:25 Sputum - Expectorated Sputum Gram Stain - Final Constitutional: Present severe distress Head: Present normocephalic and atraumatic ENT: Present normal exam, normal oropharynx and mucous membranes moist Neck: Present normal inspection and full ROM Respiratory: Present rhonchi, wheezes, crackles, diminished air movement and able to speak in complete sentences Cardiac: Present S1/S2, Tachycardia and radial pulses present GI: Present soft and distention; Absent tenderness or guarding Rectal (female): Present deferred (female): Present deferred Skin: Present intact; Absent cyanosis or jaundice Neuro: Present alert, awake and oriented x 3 Extremities: Present normal inspection; Absent clubbing or cyanosis Psychiatric: Present normal affect and cooperative Meds Home Medications and Allergies Home Medications ?Medication ?Instructions ?Recorded ?Confirmed ?Type apixaban 5 mg tablet (Eliquis) 5 mg PO BID #60 tabs 12/14/23 01/12/24 Rx amiodarone 200 mg tablet 200 mg PO DAILY 12/21/23 01/12/24 History diazepam 5 mg tablet (Valium) 5 mg PO DAILYP PRN Anxiety 12/21/23 01/12/24 History oxycodone 5 mg tablet 5 mg PO BIDP PRN Pain 12/21/23 01/12/24 History albuterol sulfate 90 mcg/actuation 2 puff inhalation DAILY PRN SOB 01/11/24 01/11/24 History aerosol inhaler bisoprolol fumarate 5 mg tablet 2.5 mg PO DAILY 01/12/24 01/12/24 History furosemide 20 mg tablet 20 mg PO DAILY 01/12/24 01/12/24 History mirtazapine 15 mg tablet 15 mg PO HS 01/12/24 01/12/24 History ondansetron 4 mg disintegrating 4 mg PO QIDP PRN nausea and 01/12/24 01/12/24 History tablet vomiting prednisone 20 mg tablet 20 mg PO BID 01/12/24 01/12/24 History New Prescriptions to Start Prescriptions: Allergies Allergy/AdvReac Type Severity Reaction Status Date / Time diazepam AdvReac Severe Vomiting Verified 12/21/23 14:27 aspirin AdvReac Other Verified 12/21/23 14:27 Results Laboratory Findings 01/12/24 05:45 01/12/24 05:45 Abnormal lab findings: Abnormal Labs 01/11/24 01/11/24 01/12/24 16:18 16:42 05:45 WBC 27.6 H* 18.2 H D RBC 3.45 L 2.69 L Hgb 7.2 L 5.5 L* D Hct 24.3 L 19.3 L* MCV 70.4 L 71.8 L MCH 20.8 L 20.4 L MCHC 29.5 L 28.4 L RDW 18.4 H 18.3 H Plt Count 769 H 606 H MPV 7.1 L 6.9 L Neut % (Auto) 92.8 H 90.1 H Lymph % (Auto) 1.7 L 3.1 L Neut # (Auto) 25.6 H 16.4 H Lymph # (Auto) 0.5 L 0.6 L [place] # (Auto) 1.3 H 1.2 H Neutrophils % (Manual) 88 H Lymphocytes % (Manual) 4 L Sodium 128 L 131 L Chloride 88 L 93 L Carbon Dioxide 36 H 37 H Anion Gap 4.9 L Creatinine 0.50 L 0.40 L Glucose 181 H 150 H Calcium 7.9 L Iron 22 L TIBC 195 L Iron Saturation 11.58178 L Alkaline Phosphatase 158 H NT-Pro-B Natriuret Pep 1250 H Total Protein 5.3 L Albumin 3.1 L 2.5 L D Globulin 3.3 H Albumin/Globulin Ratio 0.9 L 0.9 L Urine Bilirubin 1+ A Crossmatch (AHG) 01/12/24 07:40 WBC RBC Hgb Hct MCV MCH MCHC RDW Plt Count MPV Neut % (Auto) Lymph % (Auto) Neut # (Auto) Lymph # (Auto) [place] # (Auto) Neutrophils % (Manual) Lymphocytes % (Manual) Sodium Chloride Carbon Dioxide Anion Gap Creatinine Glucose Calcium Iron TIBC Iron Saturation Alkaline Phosphatase NT-Pro-B Natriuret Pep Total Protein Albumin Globulin Albumin/Globulin Ratio Urine Bilirubin Crossmatch (AHG) See Detail Assessment and Plan *Assessment and plan (1) Bilateral pneumonia: Status: Acute Qualifiers: Pneumonia type: due to unspecified organism Category: Medical Code(s): J18.9 - Pneumonia, unspecified organism (2) Lung collapse: Status: Acute Category: Medical Code(s): J98.19 - Other pulmonary collapse (3) Acute on chronic hypoxic respiratory failure: Status: Acute Category: Medical Code(s): J96.21 - Acute and chronic respiratory failure with hypoxia Plan Ms. Melo is a 68-year-old female greater than 80-[id number] smoking, squamous cell lung cancer diagnosed in March 2023 presented with worsening respiratory distress leukocytosis and pulmonary was called for further evaluation and management. Patient during bronchoscopy in March 2023 noted to have extensive endobronchial lesion in her bronchus intermedius that resulted positive for malignancy upon biopsy. CT upon admission concerning worsening of the right BI lesion along with complete collapse of the right middle lobe airspace disease in the right lower lobe. The right upper lobe bronchus also appeared to be narrowed. Small right pleural effusion noted. Neutrophilic predominant leukocytosis upon admission improving. Severe anemia noted with a hemoglobin of 5.5. Continue to receive vancomycin cefepime azithromycin pending culture results. Patient refused chemotherapy patient admits she has been following with radiation oncology hospital and receiving radiation therapy and has surveillance CT scans since March 2023. Auscultation decreased breath sounds right lung balderas. Rhonchi. 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 Patient would benefit from evaluation at [facility], interventional pulmonary. Plan: Continue oxygen supplementation to maintain O2 saturation goal of 90% and above currently discussed with the saturating 90% and above. DuoNebs every 4 hours along with Pulmicort every 12 scheduled Incentive spirometry and flutter valve Continue vancomycin and cefepime pending sputum culture results and nasal MRSA PCR Recommend transfer/outpatient follow-up and for interventional pulmonary consult # Thank you for involving pulmonary in this patient care. Will continue to follow.
[2024-01-12 10:15] LABS: Procalcitonin 0.935 ng/mL (0.0-2.0)
[2024-01-12] MEDS: 0.9 % SODIUM CHLORIDE 250 ML 25 ML IV ×2 (10:46→17:29)
--- NOTE | 2024-01-12 11:07 | P.CONCA_ITS ---
History of Present Illness History of Present Illness Consult date: 01/12/24 Requesting physician: Kam Drake Consult reason: shortness of breath Chief complaint: SOB History of present illness: This is a 68-year-old female who presented to the emergency department with complaints of shortness of breath and increasing oxygen requirements. The patient has a past medical history of right-sided lung cancer currently undergoing radiation, coronary artery disease, hypertension, hyperlipidemia, tobacco user, A-fib on Eliquis. The patient states that she has been short of breath over the last 2 to 3 weeks but significantly worsened over the last week. The patient states that she has gone from 2-1/2 L via nasal cannula of her oxygen to 4 L at night. She notes that she has a chronic productive cough that is slightly worse than usual as well. She states that she has had some lower extremity edema associated with her shortness of breath. She has been having some right-sided pain in her chest that is going down the right side of her ribs and into her right shoulder as well. She states that she has just not felt very well at all. She denies any fever, chills, nausea, vomiting or diarrhea. The patient states that her shortness of breath is associated with orthopnea as well. Chest x-ray showed severe right lower lobe pneumonia and CTA of the chest also showed right lower lobe pneumonia as well as right middle lobe consolidation. Her malignancy was once again noted with obstruction to the right lower lobe and right upper lobe narrowing. Of note she also has a recent abnormal stress test showing fixed perfusion defects and the patient has known in-stent restenosis in her right coronary artery. [facility] Disclaimer: The information contained in this section may have been updated after the patient was seen, as this information can be updated by other users. Medical History (Updated 01/12/24 @ 12:53 by Kenyatta Cobb APRN) Acute on chronic HFrEF (heart failure with reduced ejection fraction) Iron deficiency anemia Abnormal cardiovascular stress test Paroxysmal atrial fibrillation Lung collapse Angina pectoris Acute and chronic respiratory failure with hypoxia Atrial fibrillation with RVR Primary lung cancer Acute hypoxemic respiratory failure Lung cancer Orthopnea Hemoptysis Smoking greater than 30 pack years Pulmonary emphysema History of lung cancer in adulthood Hilar lymphadenopathy Nodule of right lung Stenosis of carotid artery Cancer Migraine Heart attack NSCLC of left lung Anxiety Tooth abscess Surgical History History of bladder surgery History of heart artery stent History of hysterectomy Family History Other Cancer Heart attack Hypertension Stroke Social History (Updated 01/11/24 @ 22:47 by Tatiana Melo RN) Smoking Status: Current every day smoker tobacco type: cigarettes packs per day: 1 alcohol intake: never substance use type: denies use current occupational status: other Travel in the last 8 weeks: None Review of Systems Review of Systems Review of systems:: pertinent systems reviewed and negative unless documented below Constitutional Constitutional: Reports system reviewed and no additional complaints, except as documented, Reports fatigue and Reports lethargy Eyes Eyes: Reports system reviewed and no additional complaints, except as documented ENT Ears, Nose, Mouth, and Throat: Reports system reviewed and no additional complaints, except as documented *Cardiovascular Cardiovascular: Reports system reviewed and no additional complaints, except as documented, Reports chest pain, Reports dyspnea, Reports dyspnea on exertion, Reports leg edema and Reports pedal edema *Respiratory Respiratory: Reports system reviewed and no additional complaints, except as documented, Reports dyspnea and Reports dyspnea on exertion *Gastrointestinal Gastrointestinal: Reports system reviewed and no additional complaints, except as documented *Genitourinary Genitourinary: Reports system reviewed and no additional complaints, except as documented *Musculoskeletal Musculoskeletal: Reports system reviewed and no additional complaints, except as documented and Reports other (shoulder pain ) Integumentary/Breasts Skin/Breast: Reports system reviewed and no additional complaints, except as documented *Neurologic Neurologic: Reports system reviewed and no additional complaints, except as documented Psychiatric Psychiatric: Reports system reviewed and no additional complaints, except as documented Endocrine Endocrine: Reports system reviewed and no additional complaints, except as documented and Reports fatigue Hematologic/Lymphatic Hematologic/Lymphatic: Reports system reviewed and no additional complaints, except as documented Allergic/Immunologic Allergic/Immunologic: Reports system reviewed and no additional complaints, except as documented Exam Data for Last 24 hours Vital signs and Labs for Last 24 Hours: Temp Pulse Resp BP Pulse Ox O2 Del Method O2 Flow Rate 98.5 F 109 H 18 135/67 94 L Nasal Cannula 6 01/12/24 10:51 01/12/24 10:51 01/12/24 10:51 01/12/24 10:51 01/12/24 10:51 01/12/24 09:00 01/12/24 09:00 Laboratory Results - last 24 hr 01/11/24 16:18: WBC 27.6 H*, RBC 3.45 L, Hgb 7.2 L, Hct 24.3 L, MCV 70.4 L, MCH 20.8 L, MCHC 29.5 L, RDW 18.4 H, Plt Count 769 H, MPV 7.1 L, Neut % (Auto) 92.8 H, Lymph % (Auto) 1.7 L, [place] % (Auto) 4.6, Eos % (Auto) 0.6, Baso % (Auto) 0.3, Neut # (Auto) 25.6 H, Lymph # (Auto) 0.5 L, [place] # (Auto) 1.3 H, Eos # (Auto) 0.2, Baso # (Auto) 0.1, Total Counted 100, Neutrophils % (Manual) 88 H, Band Neutrophils % 3.0, Lymphocytes % (Manual) 4 L, Monocytes % (Manual) 5, Platelet Estimate Moderate increase, RBC Morphology Not Reportable, Hypochromasia 3+, Anisocytosis 2+, Microcytosis 2+, Macrocytosis 1+, Ovalocytes 1+, Sodium 128 L, Potassium 4.1, Chloride 88 L, Carbon Dioxide 36 H, Anion Gap 8.1, BUN 17, Creatinine 0.50 L, Estimated Creat Clear 32, Estimated GFR 123, Est GFR ( Amer) 149, Glucose 181 H, Calcium 8.6, Magnesium 1.7, Total Bilirubin 0.6, AST 25, ALT 16, Alkaline Phosphatase 109, NT-Pro-B Natriuret Pep 1250 H, Total Protein 6.4, Albumin 3.1 L, Globulin 3.3 H, Albumin/Globulin Ratio 0.9 L, Procalcitonin 1.01, Hepatitis C Antibody Non reactive, HIV 1&2 Antibody Rapid Nonreactive 01/11/24 16:42: Urine Color Yellow, Urine Appearance Clear, Urine pH 6.0, Ur Specific [place] >= 1.030, Urine Protein Trace, Urine Glucose (UA) Negative, Urine Ketones Trace, Urine Blood Negative, Urine Nitrate Negative, Urine Bilirubin 1+ A, Urine Urobilinogen 0.2, Ur Leukocyte Esterase Negative, Urine RBC 3-5, Urine WBC 10-20, Ur Squamous Epith Cells 10-20, Urine Bacteria 1+ 01/11/24 18:54: Chlamy pneumoniae PCR Not detected, Adenovirus (PCR) Not detected, B. pertussis DNA (PCR) Not detected, Coronavirus OC43 (PCR) Not detected, Coronavirus HKU1 (PCR) Not detected, Coronavirus 229E (PCR) Not detected, SARS-CoV-2 (PCR) Not detected, Coronavirus NL63 (PCR) Not detected, Human Metapneumovir PCR Not detected, Influenza A (H1) PCR Not detected, Influ A (H1N1/09) PCR Not detected, Influenza A (H3) PCR Not detected, Influenza Type A (PCR) Not detected, Influenza Type B (PCR) Not detected, M. pneumoniae (PCR) Not detected, Parainfluenza 1 (PCR) Not detected, Parainfluenza 2 (PCR) Not detected, Parainfluenza 3 (PCR) Not detected, Parainfluenza 4 (PCR) Not detected, RSV (PCR) Not detected, Entero/Rhino (PCR) Not detected 01/12/24 05:45: WBC 18.2 H D, RBC 2.69 L, Hgb 5.5 L* D, Hct 19.3 L*, MCV 71.8 L, MCH 20.4 L, MCHC 28.4 L, RDW 18.3 H, Plt Count 606 H, MPV 6.9 L, Neut % (Auto) 90.1 H, Lymph % (Auto) 3.1 L, [place] % (Auto) 6.3, Eos % (Auto) 0.3, Baso % (Auto) 0.1, Neut # (Auto) 16.4 H, Lymph # (Auto) 0.6 L, [place] # (Auto) 1.2 H, Eos # (Au to) 0.1, Baso # (Auto) 0.0, Sodium 131 L, Potassium 3.9, Chloride 93 L, Carbon Dioxide 37 H, Anion Gap 4.9 L, BUN 12 D, Creatinine 0.40 L, Estimated Creat Clear 32, Estimated GFR 159, Est GFR ( Amer) 193 D, Glucose 150 H, Calcium 7.9 L, Iron 22 L, TIBC 195 L, Iron Saturation 11.20773 L, Ferritin 56.5, Total Bilirubin 0.3, AST 24, ALT 13, Alkaline Phosphatase 158 H, Total Protein 5.3 L, Albumin 2.5 L D, Globulin 2.8, Albumin/Globulin Ratio 0.9 L, Procalcitonin 0.935, Blood Type Confirm O Positive 01/12/24 07:40: Blood Type O Positive, Antibody Screen Negative, Crossmatch (AHG) See Detail I & O for Last 24 hours: Intake & Output 01/09/24 01/10/24 01/11/24 01/12/24 23:59 23:59 23:59 23:59 Intake Total 560 / 560 Output Total 0 / 0 Balance 560 / 560 Weight 82 lb 81 lb 15.839 oz Microbiology Reports for the Last 24 Hours: Microbiology 01/11/24 07:25 Sputum - Expectorated Sputum Gram Stain - Final Constitutional Constitutional: no acute distress, thin and chronically ill appearing *Routine HEENT Exam Head: Present normocephalic and atraumatic ENT: Present mucous membranes moist *Routine Neck Exam Neck: Present supple, full ROM and normal carotid upstroke; Absent JVD, carotid bruit or lymphadenopathy *Routine Respiratory Exam Respiratory: Present CTA bilaterally, normal respiratory effort, able to speak in complete sentences and symmetric chest movement *Routine Cardiovascular Exam Cardiovascular: Present RRR, Normal S1, Normal S2 and murmur; Absent gallop *Routine Abdominal Exam Abdominal: Present soft and normoactive bowel sounds; Absent tenderness, distended or organomegaly *Routine Extremities Exam Extremities: Present full ROM, pulses intact and normal capillary refill; Absent cyanosis, clubbing or edema *Routine Skin Exam Skin: Present intact and warm; Absent erythema *Routine Neurological Exam Neurological: Present alert, oriented X3 and CN II-XII intact; Absent sensory deficit or motor deficit Routine Psychiatric Exam Psychiatric: Present normal affect Meds Home Medications and Allergies Home Medications ?Medication ?Instructions ?Recorded ?Confirmed ?Type apixaban 5 mg tablet (Eliquis) 5 mg PO BID #60 tabs 12/14/23 01/12/24 Rx amiodarone 200 mg tablet 200 mg PO DAILY 12/21/23 01/12/24 History diazepam 5 mg tablet (Valium) 5 mg PO DAILYP PRN Anxiety 12/21/23 01/12/24 History oxycodone 5 mg tablet 5 mg PO BIDP PRN Pain 12/21/23 01/12/24 History albuterol sulfate 90 mcg/actuation 2 puff inhalation DAILY PRN SOB 01/11/24 01/11/24 History aerosol inhaler bisoprolol fumarate 5 mg tablet 2.5 mg PO DAILY 01/12/24 01/12/24 History furosemide 20 mg tablet 20 mg PO DAILY 01/12/24 01/12/24 History mirtazapine 15 mg tablet 15 mg PO HS 01/12/24 01/12/24 History ondansetron 4 mg disintegrating 4 mg PO QIDP PRN nausea and 01/12/24 01/12/24 History tablet vomiting prednisone 20 mg tablet 20 mg PO BID 01/12/24 01/12/24 History New Prescriptions to Start Prescriptions: Allergies Allergy/AdvReac Type Severity Reaction Status Date / Time diazepam AdvReac Severe Vomiting Verified 12/21/23 14:27 aspirin AdvReac Other Verified 12/21/23 14:27 Assessment and Plan *Assessment and plan (1) Community acquired pneumonia: Status: Acute Qualifiers: Laterality: right Lung location: unspecified part of lung Qualified Code(s): J18.9 - Pneumonia, unspecified organism Category: Medical Code(s): J18.9 - Pneumonia, unspecified organism (2) Sepsis without septic shock: Status: Acute Category: Medical Code(s): A41.9 - Sepsis, unspecified organism (3) Angina pectoris: Status: Acute Category: Medical Code(s): I20.9 - Angina pectoris, unspecified (4) Paroxysmal atrial fibrillation: Status: Acute Category: Medical Code(s): I48.0 - Paroxysmal atrial fibrillation (5) Primary lung cancer: Status: Acute Qualifiers: Laterality: right Qualified Code(s): C34.91 - Malignant neoplasm of unspecified part of right bronchus or lung Category: Medical Code(s): C34.90 - Malignant neoplasm of unspecified part of unspecified bronchus or lung (6) CAD (coronary atherosclerotic disease): Status: Acute Qualifiers: Associated angina: without angina Coronary Disease-Associated Artery/Lesion type: [place] artery [place] vs. transplanted heart: [place] heart Qualified Code(s): I25.10 - Atherosclerotic heart disease of [place] coronary artery without angina pectoris Category: Medical Code(s): I25.10 - Atherosclerotic heart disease of [place] coronary artery without angina pectoris (7) Stenosis of carotid artery: Status: Acute Qualifiers: Laterality: unspecified laterality Qualified Code(s): I65.29 - Occlusion and stenosis of unspecified carotid artery Category: Medical Code(s): I65.29 - Occlusion and stenosis of unspecified carotid artery (8) Abnormal cardiovascular stress test: Status: Acute Category: Medical Code(s): R94.39 - Abnormal result of other cardiovascular function study (9) Iron deficiency anemia: Status: Acute Qualifiers: Iron deficiency anemia type: unspecified iron deficiency Qualified Code(s): D50.9 - Iron deficiency anemia, unspecified Category: Medical Code(s): D50.9 - Iron deficiency anemia, unspecified (10) Acute on chronic HFrEF (heart failure with reduced ejection fraction): Status: Acute Category: Medical Code(s): I50.23 - Acute on chronic systolic (congestive) heart failure Plan Plan: 1. The patient was admitted to the hospital with worsening shortness of breath and increasing oxygen requirements. The patient was found to have a right lower lobe pneumonia. She also has consolidation in the right middle lobe consistent with atelectasis. The patient does have malignancy noted to her right lung with obstruction in the right upper lower lobe and right upper lobe narrowing. The patient is currently undergoing radiation treatments for her lung cancer but has historically refused chemotherapy. The patient will likely need transfer to a tertiary care facility or outpatient follow-up at a tertiary care center for her lung cancer. Will defer this to pulmonology and the hospitalist. 2. The patient is anemic today. She has also iron deficient. Her hemoglobin is 5.5 today which is down from 7.2. She will be transfused with packed red blood cells today. Will consult GI due to her iron deficiency anemia. 3. The patient does have angina which she reports continues to worsen. She does have a known abnormal stress test with recent in-stent restenosis noted to her right coronary artery. Once the patient's hemoglobin has improved following transfusion then we will consider proceeding with left cardiac catheterization in order to revascularize her right coronary artery due to her persistent angina and abnormal stress test. We anticipate that we can proceed with this procedure tomorrow if her anemia improves. Continue Plavix. 4. Her blood pressure is well-controlled. Her bisoprolol is currently being held due to low blood pressure. 5. Her LDL goal is less than 55. Will get a lipid panel. She is on a statin. 6. The patient does have paroxysmal atrial fibrillation. Continue amiodarone. 7. She is on long-term anticoagulation with Eliquis. 8. The patient does have an elevated BNP and known HFrEF. She is being diuresed with IV Lasix. Will continue at this time. 9. Repeat BMP in the morning. 10. Further recommendations will be made pending the patient's response to treatment. Thank you for the opportunity to have participate in the care of this patient. All recommendations and orders are per Dr. Prather.
[2024-01-12 12:57] LABS: Lymphocytes % 5 % (10-50); Monocytes % 2 % (2-9); Neutrophils % 93 % (42-76); Total Cells Counted 100
[2024-01-12 12:58] LABS: Platelet Estimate Slight Increase
[2024-01-12 13:01] LABS: Anisocytosis 1+; Hypochromasia 3+; Poikilocytosis 2+
--- NOTE | 2024-01-12 13:30 | PC.NURSE ---
RESP CARE NOTE: Pt refuses to allow neb tx, Per Dr Sellers place patient on PRN Albuterol MDI's since she is agreeable to this plan and states she will use when necessary. She adamantly refuses to allow nebulizer equipment to be allowed in room.
--- NOTE | 2024-01-12 13:34 | P.CONS_ITS ---
History of Present Illness *Admission Date: 01/11/24 *History of present illness: Mrs. Melo is a 68-year-old female with a history of right lung cancer undergoing radiation therapy. She has left lung cancer in remission. She continues to smoke. She does have 2 coronary stents and atrial fibrillation. She is on Eliquis. GI was consulted primarily because of her microcytic anemia. Her initial hemoglobin was 7.2 with MCV of 70. She does have left subclavian artery stenosis and Plavix was initiated. She reports no melena, hematochezia or bright red blood per rectum. She has no abdominal complaints and reports no abdominal pain, diarrhea or constipation. The patient has never had a colonoscopy or upper endoscopy. Her hemoglobin and hematocrit today were 5.5 and 19.3. She does have significant iron deficiency with serum iron 22, iron saturation 11.2% and ferritin 56.5. [facility] Disclaimer: The information contained in this section may have been updated after the patient was seen, as this information can be updated by other users. Medical History (Updated 01/12/24 @ 12:53 by Kenyatta Cobb APRN) Acute on chronic HFrEF (heart failure with reduced ejection fraction) Iron deficiency anemia Abnormal cardiovascular stress test Paroxysmal atrial fibrillation Lung collapse Angina pectoris Acute and chronic respiratory failure with hypoxia Atrial fibrillation with RVR Primary lung cancer Acute hypoxemic respiratory failure Lung cancer Orthopnea Hemoptysis Smoking greater than 30 pack years Pulmonary emphysema History of lung cancer in adulthood Hilar lymphadenopathy Nodule of right lung Stenosis of carotid artery Cancer Migraine Heart attack NSCLC of left lung Anxiety Tooth abscess Surgical History History of bladder surgery History of heart artery stent History of hysterectomy Family History Other Cancer Heart attack Hypertension Stroke Social History (Updated 01/11/24 @ 22:47 by Tatiana Melo RN) Smoking Status: Current every day smoker tobacco type: cigarettes packs per day: 1 alcohol intake: never substance use type: denies use current occupational status: other Travel in the last 8 weeks: None Review of Systems *Neurologic Neurologic: Reports system reviewed and no additional complaints, except as documented Meds Home Medications and Allergies Home Medications ?Medication ?Instructions ?Recorded ?Confirmed ?Type apixaban 5 mg tablet (Eliquis) 5 mg PO BID #60 tabs 10/14/24 11/12/24 Rx amiodarone 200 mg tablet 200 mg PO DAILY 12/21/23 01/12/24 History diazepam 5 mg tablet (Valium) 5 mg PO DAILYP PRN Anxiety 12/21/23 01/12/24 History oxycodone 5 mg tablet 5 mg PO BIDP PRN Pain 12/21/23 01/12/24 History albuterol sulfate 90 mcg/actuation 2 puff inhalation DAILY PRN SOB 01/11/24 01/11/24 History aerosol inhaler bisoprolol fumarate 5 mg tablet 2.5 mg PO DAILY 01/12/24 01/12/24 History furosemide 20 mg tablet 20 mg PO DAILY 01/12/24 01/12/24 History mirtazapine 15 mg tablet 15 mg PO HS 01/12/24 01/12/24 History ondansetron 4 mg disintegrating 4 mg PO QIDP PRN nausea and 01/12/24 01/12/24 History tablet vomiting prednisone 20 mg tablet 20 mg PO BID 01/12/24 01/12/24 History New Prescriptions to Start Prescriptions: Allergies Allergy/AdvReac Type Severity Reaction Status Date / Time diazepam AdvReac Severe Vomiting Verified 12/21/23 14:27 aspirin AdvReac Other Verified 12/21/23 14:27 Exam (Inpt) Vital signs and Labs for Last 24 Hours: Temp Pulse Resp BP Pulse Ox O2 Del Method O2 Flow Rate 99.6 F 96 H 16 110/55 L 98 Nasal Cannula 5 01/12/24 12:10 01/12/24 12:10 01/12/24 12:10 01/12/24 12:10 01/12/24 12:10 01/12/24 11:00 01/12/24 11:00 Laboratory Results - last 24 hr 01/11/24 16:18: WBC 27.6 H*, RBC 3.45 L, Hgb 7.2 L, Hct 24.3 L, MCV 70.4 L, MCH 20.8 L, MCHC 29.5 L, RDW 18.4 H, Plt Count 769 H, MPV 7.1 L, Neut % (Auto) 92.8 H, Lymph % (Auto) 1.7 L, [place] % (Auto) 4.6, Eos % (Auto) 0.6, Baso % (Auto) 0.3, Neut # (Auto) 25.6 H, Lymph # (Auto) 0.5 L, [place] # (Auto) 1.3 H, Eos # (Auto) 0.2, Baso # (Auto) 0.1, Total Counted 100, Neutrophils % (Manual) 88 H, Band Neutrophils % 3.0, Lymphocytes % (Manual) 4 L, Monocytes % (Manual) 5, Platelet Estimate Moderate increase, RBC Morphology Not Reportable, Hypochromasia 3+, Anisocytosis 2+, Microcytosis 2+, Macrocytosis 1+, Ovalocytes 1+, Sodium 128 L, Potassium 4.1, Chloride 88 L, Carbon Dioxide 36 H, Anion Gap 8.1, BUN 17, C reatinine 0.50 L, Estimated Creat Clear 32, Estimated GFR 123, Est GFR ( Amer) 149, Glucose 181 H, Calcium 8.6, Magnesium 1.7, Total Bilirubin 0.6, AST 25, ALT 16, Alkaline Phosphatase 109, NT-Pro-B Natriuret Pep 1250 H, Total Protein 6.4, Albumin 3.1 L, Globulin 3.3 H, Albumin/Globulin Ratio 0.9 L, Procalcitonin 1.01, Hepatitis C Antibody Non reactive, HIV 1&2 Antibody Rapid Nonreactive 01/11/24 16:42: Urine Color Yellow, Urine Appearance Clear, Urine pH 6.0, Ur Specific [place] >= 1.030, Urine Protein Trace, Urine Glucose (UA) Negative, Urine Ketones Trace, Urine Blood Negative, Urine Nitrate Negative, Urine Bilirubin 1+ A, Urine Urobilinogen 0.2, Ur Leukocyte Esterase Negative, Urine RBC 3-5, Urine WBC 10-20, Ur Squamous Epith Cells 10-20, Urine Bacteria 1+ 01/11/24 18:54: Chlamy pneumoniae PCR Not detected, Adenovirus (PCR) Not detected, B. pertussis DNA (PCR) Not detected, Coronavirus OC43 (PCR) Not detected, Coronavirus HKU1 (PCR) Not detected, Coronavirus 229E (PCR) Not detected, SARS-CoV-2 (PCR) Not detected, Coronavirus NL63 (PCR) Not detected, Human Metapneumovir PCR Not detected, Influenza A (H1) PCR Not detected, Influ A (H1N1/09) PCR Not detected, Influenza A (H3) PCR Not detected, Influenza Type A (PCR) Not detected, Influenza Type B (PCR) Not detected, M. pneumoniae (PCR) Not detected, Parainfluenza 1 (PCR) Not detected, Parainfluenza 2 (PCR) Not detected, Parainfluenza 3 (PCR) Not detected, Parainfluenza 4 (PCR) Not detected, RSV (PCR) Not detected, Entero/Rhino (PCR) Not detected 01/12/24 05:45: WBC 18.2 H D, RBC 2.69 L, Hgb 5.5 L* D, Hct 19.3 L*, MCV 71.8 L, MCH 20.4 L, MCHC 28.4 L, RDW 18.3 H, Plt Count 606 H, MPV 6.9 L, Neut % (Auto) 90.1 H, Lymph % (Auto) 3.1 L, [place] % (Auto) 6.3, Eos % (Auto) 0.3, Baso % (Auto) 0.1, Neut # (Auto) 16.4 H, Lymph # (Auto) 0.6 L, [place] # (Auto) 1.2 H, Eos # (Auto) 0.1, Baso # (Auto) 0.0, Total Counted 100, Neutrophils % (Manual) 93 H, L ymphocytes % (Manual) 5 L, Monocytes % (Manual) 2, Platelet Estimate Slight increase, RBC Morphology Not Reportable, Hypochromasia 3+, Poikilocytosis 2+, Anisocytosis 1+, Sodium 131 L, Potassium 3.9, Chloride 93 L, Carbon Dioxide 37 H , Anion Gap 4.9 L, BUN 12 D, Creatinine 0.40 L, Estimated Creat Clear 32, Estimated GFR 159, Est GFR ( Amer) 193 D, Glucose 150 H, Calcium 7.9 L, Iron 22 L, TIBC 195 L, Iron Saturation 11.31249 L, Ferritin 56.5, Total Bilirubin 0.3, AST 24, ALT 13, Alkaline Phosphatase 158 H, Total Protein 5.3 L, Albumin 2.5 L D, Globulin 2.8, Albumin/Globulin Ratio 0.9 L, Procalcitonin 0.935, Blood Type Confirm O Positive 01/12/24 07:40: Blood Type O Positive, Antibody Screen Negative, Crossmatch (AHG) See Detail I & O for Labs for Last 24 Hours: Intake & Output 01/09/24 01/10/24 01/11/24 01/12/24 23:59 23:59 23:59 23:59 Intake Total 560 / 560 Output Total 0 / 0 Balance 560 / 560 Weight 82 lb 81 lb 15.839 oz Microbiology Reports for the Last 24 Hours: Microbiology 01/11/24 07:25 Sputum - Expectorated Sputum Gram Stain - Final Results Labs 01/12/24 05:45 01/12/24 05:45 Labs: Laboratory Results - last 24 hr 01/11/24 16:18: WBC 27.6 H*, RBC 3.45 L, Hgb 7.2 L, Hct 24.3 L, MCV 70.4 L, MCH 20.8 L, MCHC 29.5 L, RDW 18.4 H, Plt Count 769 H, MPV 7.1 L, Neut % (Auto) 92.8 H, Lymph % (Auto) 1.7 L, [place] % (Auto) 4.6, Eos % (Auto) 0.6, Baso % (Auto) 0.3, Neut # (Auto) 25.6 H, Lymph # (Auto) 0.5 L, [place] # (Auto) 1.3 H, Eos # (Auto) 0.2, Baso # (Auto) 0.1, Total Counted 100, Neutrophils % (Manual) 88 H, Band Neutrophils % 3.0, Lymphocytes % (Manual) 4 L, Monocytes % (Manual) 5, Platelet Estimate Moderate increase, RBC Morphology Not Reportable, Hypochromasia 3+, Anisocytosis 2+, Microcytosis 2+, Macrocytosis 1+, Ovalocytes 1+, Sodium 128 L, Potassium 4.1, Chloride 88 L, Carbon Dioxide 36 H, Anion Gap 8.1, BUN 17, C reatinine 0.50 L, Estimated Creat Clear 32, Estimated GFR 123, Est GFR ( Amer) 149, Glucose 181 H, Calcium 8.6, Magnesium 1.7, Total Bilirubin 0.6, AST 25, ALT 16, Alkaline Phosphatase 109, NT-Pro-B Natriuret Pep 1250 H, Total Protein 6.4, Albumin 3.1 L, Globulin 3.3 H, Albumin/Globulin Ratio 0.9 L, Procalcitonin 1.01, Hepatitis C Antibody Non reactive, HIV 1&2 Antibody Rapid Nonreactive 01/11/24 16:42: Urine Color Yellow, Urine Appearance Clear, Urine pH 6.0, Ur Specific [place] >= 1.030, Urine Protein Trace, Urine Glucose (UA) Negative, Urine Ketones Trace, Urine Blood Negative, Urine Nitrate Negative, Urine Bilirubin 1+ A, Urine Urobilinogen 0.2, Ur Leukocyte Esterase Negative, Urine RBC 3-5, Urine WBC 10-20, Ur Squamous Epith Cells 10-20, Urine Bacteria 1+ 01/11/24 18:54: Chlamy pneumoniae PCR Not detected, Adenovirus (PCR) Not detected, B. pertussis DNA (PCR) Not detected, Coronavirus OC43 (PCR) Not detected, Coronavirus HKU1 (PCR) Not detected, Coronavirus 229E (PCR) Not detected, SARS-CoV-2 (PCR) Not detected, Coronavirus NL63 (PCR) Not detected, Human Metapneumovir PCR Not detected, Influenza A (H1) PCR Not detected, Influ A (H1N1/09) PCR Not detected, Influenza A (H3) PCR Not detected, Influenza Type A (PCR) Not detected, Influenza Type B (PCR) Not detected, M. pneumoniae (PCR) Not detected, Parainfluenza 1 (PCR) Not detected, Parainfluenza 2 (PCR) Not detected, Parainfluenza 3 (PCR) Not detected, Parainfluenza 4 (PCR) Not detected, RSV (PCR) Not detected, Entero/Rhino (PCR) Not detected 01/12/24 05:45: WBC 18.2 H D, RBC 2.69 L, Hgb 5.5 L* D, Hct 19.3 L*, MCV 71.8 L, MCH 20.4 L, MCHC 28.4 L, RDW 18.3 H, Plt Count 606 H, MPV 6.9 L, Neut % (Auto) 90.1 H, Lymph % (Auto) 3.1 L, [place] % (Auto) 6.3, Eos % (Auto) 0.3, Baso % (Auto) 0.1, Neut # (Auto) 16.4 H, Lymph # (Auto) 0.6 L, [place] # (Auto) 1.2 H, Eos # (Auto) 0.1, Baso # (Auto) 0.0, Total Counted 100, Neutrophils % (Manual) 93 H, L ymphocytes % (Manual) 5 L, Monocytes % (Manual) 2, Platelet Estimate Slight increase, RBC Morphology Not Reportable, Hypochromasia 3+, Poikilocytosis 2+, Anisocytosis 1+, Sodium 131 L, Potassium 3.9, Chloride 93 L, Carbon Dioxide 37 H , Anion Gap 4.9 L, BUN 12 D, Creatinine 0.40 L, Estimated Creat Clear 32, Estimated GFR 159, Est GFR ( Amer) 193 D, Glucose 150 H, Calcium 7.9 L, Iron 22 L, TIBC 195 L, Iron Saturation 11.39067 L, Ferritin 56.5, Total Bilirubin 0.3, AST 24, ALT 13, Alkaline Phosphatase 158 H, Total Protein 5.3 L, Albumin 2.5 L D, Globulin 2.8, Albumin/Globulin Ratio 0.9 L, Procalcitonin 0.935, Blood Type Confirm O Positive 01/12/24 07:40: Blood Type O Positive, Antibody Screen Negative, Crossmatch (AHG) See Detail Assessment and Plan *Assessment and plan (1) Iron deficiency anemia: Status: Acute Qualifiers: Iron deficiency anemia type: unspecified iron deficiency Qualified Code(s): D50.9 - Iron deficiency anemia, unspecified Category: Medical Code(s): D50.9 - Iron deficiency anemia, unspecified Plan 1. Severe iron deficiency anemia. The patient reports no GI blood loss. She is on Eliquis and corticosteroids (prednisone). She is at high risk for GI bleeding. I would recommend Hemoccult testing presently. I would also consider EGD/colonoscopy but only after patient more medically stable with treatment of her anemia (via blood transfusion and/or parenteral iron). I would also like to do this after resolution of pneumonia if possible. As long as we get her repleted with iron/blood products and patient moves towards medically stable with pneumonia and cardiac status, would consider doing EGD/colonoscopy on this admission.
[2024-01-12] MEDS: predniSONE 20MG TAB 40 MG PO (17:54)
[2024-01-12] MEDS: AZITHROMYCIN 500 MG in 0.9 % SODIUM CHLORIDE 250 ML 250 MG IV (17:54)
[2024-01-12 18:00] LABS: Hemoglobin 10.2 g/dL (12.2-16.2)
--- NOTE | 2024-01-12 19:21 | PC.NURSE ---
pt resting supine in bed. requiring 6L NC to maintain sats >90%. pt is not compliant with all care and has been refusing nebs/ plavix. a &ox4. 2u RBC infused this shift. pt tolerated well. abx given per apr. consulted w/ cards and GI today. no complaints at this time.
[2024-01-12] MEDS: CEFEPIME HCL 1 GM in 0.9 % SODIUM CHLORIDE 50 ML IV (20:27)
--- NOTE | 2024-01-12 21:54 | P.PN_ITS ---
Subjective *Date: 01/12/24 *Time: 21:54 Exam Data for Last 24 hours Vital signs and Labs for Last 24 Hours: Temp Pulse Resp BP Pulse Ox O2 Del Method O2 Flow Rate 97.7 F 100 H 18 115/55 L 96 Nasal Cannula 6 01/12/24 20:00 01/12/24 20:00 01/12/24 20:00 01/12/24 20:00 01/12/24 20:00 01/12/24 20:00 01/12/24 20:00 Laboratory Results - last 24 hr 01/11/24 16:18: NT-Pro-B Natriuret Pep 1250 H, Hepatitis C Antibody Non reactive 01/12/24 05:45: WBC 18.2 H D, RBC 2.69 L, Hgb 5.5 L* D, Hct 19.3 L*, MCV 71.8 L, MCH 20.4 L, MCHC 28.4 L, RDW 18.3 H, Plt Count 606 H, MPV 6.9 L, Neut % (Auto) 90.1 H, Lymph % (Auto) 3.1 L, [place] % (Auto) 6.3, Eos % (Auto) 0.3, Baso % (Auto) 0.1, Neut # (Auto) 16.4 H, Lymph # (Auto) 0.6 L, [place] # (Auto) 1.2 H, Eos # (Auto) 0.1, Baso # (Auto) 0.0, Total Counted 100, Neutrophils % (Manual) 93 H, Lymphocytes % (Manual) 5 L, Monocytes % (Manual) 2, Platelet Estimate Slight increase, RBC Morphology Not Reportable, Hypochromasia 3+, Poikilocytosis 2+, Anisocytosis 1+, Sodium 131 L, Potassium 3.9, Chloride 93 L, Carbon Dioxide 37 H , Anion Gap 4.9 L, BUN 12 D, Creatinine 0.40 L, Estimated Creat Clear 32, Estimated GFR 159, Est GFR ( Amer) 193 D, Glucose 150 H, Calcium 7.9 L, Iron 22 L, TIBC 195 L, Iron Saturation 11.77727 L, Ferritin 56.5, Total Bilirubin 0.3, AST 24, ALT 13, Alkaline Phosphatase 158 H, Total Protein 5.3 L, Albumin 2.5 L D, Globulin 2.8, Albumin/Globulin Ratio 0.9 L, Procalcitonin 0.935, Blood Type Confirm O Positive 01/12/24 07:40: Blood Type O Positive, Antibody Screen Negative, Crossmatch (AHG) See Detail 01/12/24 17:45: Hgb 10.2 L D, Hct 32.0 L I & O for Last 24 hours: Intake & Output 01/09/24 01/10/24 01/11/24 01/12/24 23:59 23:59 23:59 23:59 Intake Total 1645 / 1645 Output Total 0 / 0 Balance 1645 / 1645 Weight 37.195 kg 37.19 kg Microbiology Reports for the Last 24 Hours: Microbiology 01/11/24 18:55 Blood Blood Culture - Preliminary NO GROWTH AFTER 24 HOURS 01/11/24 18:52 Blood Blood Culture - Preliminary NO GROWTH AFTER 24 HOURS 01/11/24 07:25 Sputum - Expectorated Sputum Gram Stain - Final Constitutional Constitutional: no acute distress and cachectic *Routine HEENT Exam Head: Present normocephalic Eye: Present EOMI and PERRL ENT: Present mucous membranes moist *Routine Neck Exam Neck: Present supple; Absent lymphadenopathy *Routine Respiratory Exam Respiratory: Present CTA bilaterally *Routine Cardiovascular Exam Cardiovascular: Present RRR *Routine Abdominal Exam Abdominal: Present soft and normoactive bowel sounds; Absent tenderness *Routine Extremities Exam Extremities: Absent cyanosis, clubbing or edema *Routine Skin Exam Skin: Present warm; Absent rash *Routine Neurological Exam Neurological: Present alert and oriented X3 Assessment and Plan *Assessment and plan (1) Sepsis without septic shock: Status: Acute Category: Medical Code(s): A41.9 - Sepsis, unspecified organism (2) Paroxysmal atrial fibrillation: Status: Acute Category: Medical Code(s): I48.0 - Paroxysmal atrial fibrillation (3) CAD (coronary atherosclerotic disease): Status: Acute Qualifiers: Coronary Disease-Associated Artery/Lesion type: [place] artery [place] vs. transplanted heart: [place] heart Associated angina: without angina Qualified Code(s): I25.10 - Atherosclerotic heart disease of [place] coronary artery without angina pectoris Category: Medical Code(s): I25.10 - Atherosclerotic heart disease of [place] coronary artery without angina pectoris (4) Community acquired pneumonia: Status: Acute Qualifiers: Laterality: right Lung location: unspecified part of lung Qualified Code(s): J18.9 - Pneumonia, unspecified organism Category: Medical Code(s): J18.9 - Pneumonia, unspecified organism (5) Acute and chronic respiratory failure with hypoxia: Status: Acute Category: Medical Code(s): J96.21 - Acute and chronic respiratory failure with hypoxia Plan Hardik Melo is a 68-year-old female with a medical history significant for right lung cancer (undergoing radiation therapy at [facility]), left lung cancer in remission, current tobacco smoker, CAD s/p 2 stents, A-fib (on Eliquis), 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 However, patient states she has been having somewhat increased shortness of breath over the past week with increase in oxygen requirements from 2.5 L to 4 L at night. She also notes chronic productive cough that is slightly worse recently. Denies fever/chills, chest pain, abdominal pain, urinary symptoms, constipation/diarrhea. Workup in the ED significant for WBC 27.6, hemoglobin 7.2, MCV 70.4, sodium 128. Respiratory panel normal. CXR suggestive of severe right lower lobe pneumonia, chest CTA suggestive of the same as well as obstruction of right lower lobe bronchus and severe narrowing of the right upper lobe bronchus. Case was discussed with ED provider and decision was made to admit patient for sepsis secondary to community-acquired pneumonia. #Acute on chronic hypoxic respiratory failure #Community-acquired pneumonia #Sepsis ? CXR, CTA chest suggestive of severe right lower lobe pneumonia in the setting of lung cancer. ? Increase in home oxygen from 2.5 L to 4 L. Patient however does not look toxic appearing. - Pulmonology consulted, recommended continuing antibiotics. ? Started vancomycin, cefepime, azithromycin day 2/5. - WBC improved from 27-18 today. ? Follow-up MRSA screen, plan to discontinue vancomycin if negative. ? Follow-up procalcitonin. ? Follow-up blood, sputum cultures. #Acute on chronic HFmrEF #CAD s/p 2 stents #History of left subclavian artery stenosis ? Several week worsening of lower extremity edema. BNP 1250. ? ECHO 12/10/2023 LVEF 45%, severe hypokinesis of the basal septal, inferior septal, and anteroseptal LV [place]. ? Evaluated by cardiology outpatient, has a known RCA in-stent restenosis. Planned for outpatient LHC and left subclavian angiogram with history of left subclavian artery stenosis. ? IV Lasix 40 mg daily. ? Started Plavix (allergic to aspirin), atorvastatin 40 mg. Does not appear patient has been taking these medications. ? Cardiology consulted, plan for LHC tomorrow if pneumonia continues to improve. #Chronic hyponatremia ? Initial sodium 128, however sodium in the past year has been high 120s, low 130s. ? This is in the setting of lung cancer which is highly suggestive of SIADH. ? Started salt tab 1000 mg daily. #Acute on chornic microcytic anemia ? Initial hemoglobin 7.2, MCV 70. - Hgb to 5.2 today, improved to 10 after 2 units pRBC. - Irons studies show significant iron defiency anema. Patient denies bloody/dark stools. However is in antiplatelets and Eliquis. - GI consulted, plan for colonoscopy once infection improves. Plan to give IV iron once infection improves. #Lung cancer #Right lower lobe bronchus obstruction #Right upper lobe bronchus narrowing ? Right lung cancer undergoing radiation therapy at [facility]. ? History of left lung cancer in remission after 30 rounds of radiation therapy. ? Bronchus abnormalities found on CTA chest. Likely in the setting of right- sided lung cancer. ? Pulmonology consulted, recommended further evaluation at [facility]. Reached out to , and make outpatient appt. #COPD exacerbation #Current tobacco smoker ? DuoNebs as needed. - Patient cough a lot more today, more restricted airways. - Started prednisone 40mg day 03/06. ? Patient is symptomatic and needs home maintenance inhaler. Pending pulmonology recommendations. ? Patient refuses nicotine patches. ? Counseled on smoke cessation, patient states she has decreased significantly and smoking to ~4 cigarettes a day. #A-fib ? Currently rate controlled. ? Resumed home amiodarone, Eliquis. #Severe protein malnutrition ? Nutrition consulted, pending recommendations. Full code DVT prophylaxis: Home Eliquis
[2024-01-13] VITALS (11 sets, daily range): BP systolic 91–122; BP diastolic 50–66; PULSE 72–100; RESP 14–18; TEMP 36.6–36.9; O2SAT 88–97; BMI 15.0
--- NOTE | 2024-01-13 02:37 | EXP.ACUTE.PN ---
Subjective *Date: 01/13/24 *Time: 02:37 Medical Exam Vital signs and Labs for Last 24 Hours: Vital Signs Temp Pulse Pulse Resp BP BP Pulse Ox 01/13/24 01:00 01/13/24 00:00 100 H 01/13/24 00:00 98.1 F 95 H 17 103/51 L 97 01/12/24 23:00 01/12/24 21:00 01/12/24 20:00 100 H 01/12/24 20:00 97.7 F 100 H 18 115/55 L 96 01/12/24 20:00 01/12/24 18:46 01/12/24 18:00 99.2 F 107 H 18 136/66 92 L 01/12/24 17:00 01/12/24 17:00 100.1 F H 105 H 18 136/72 93 L 01/12/24 16:30 99.2 F 102 H 18 101/53 L 93 L 01/12/24 16:00 100 H 01/12/24 15:30 99.1 F 103 H 16 114/76 96 01/12/24 15:15 98.8 F 106 H 18 114/87 93 L 01/12/24 15:00 98.6 F 104 H 18 104/54 L 96 01/12/24 15:00 01/12/24 14:45 99.2 F 102 H 18 104/67 L 94 L 01/12/24 14:40 99.1 F 106 H 18 114/87 96 01/12/24 14:35 99.1 F 106 H 18 100/54 L 96 01/12/24 14:30 99.4 F 102 H 18 93/46 L 96 01/12/24 13:35 99.1 F 104 H 18 133/63 97 01/12/24 13:10 99.4 F 101 H 16 138/66 97 01/12/24 13:00 01/12/24 12:10 99.6 F 96 H 16 110/55 L 98 01/12/24 12:00 100 H 01/12/24 11:55 99.2 F 95 H 18 94/42 L 98 01/12/24 11:40 99 F 95 H 16 79/51 L 97 01/12/24 11:25 98.8 F 95 H 18 103/50 L 97 01/12/24 11:20 98.7 F 101 H 18 113/50 L 95 01/12/24 11:15 98.7 F 96 H 16 92/46 L 97 01/12/24 11:10 98.2 F 97 H 18 101/43 L 97 01/12/24 11:00 01/12/24 10:51 98.5 F 109 H 18 135/67 94 L 01/12/24 09:00 01/12/24 08:00 94 L 01/12/24 08:00 100 H 01/12/24 08:00 97.4 F L 104 H 22 113/51 L 93 L 01/12/24 07:00 01/12/24 05:00 01/12/24 04:00 90 01/12/24 04:00 98.1 F 90 16 89/44 L 94 L 01/12/24 03:00 O2 Del Method O2 Flow Rate 01/13/24 01:00 Nasal Cannula 6 01/13/24 00:00 01/13/24 00:00 Nasal Cannula 01/12/24 23:00 Nasal Cannula 6 01/12/24 21:00 Nasal Cannula 6 01/12/24 20:00 01/12/24 20:00 Nasal Cannula 01/12/24 20:00 Nasal Cannula 6 01/12/24 18:46 Nasal Cannula 6 01/12/24 18:00 01/12/24 17:00 Nasal Cannula 6 01/12/24 17:00 01/12/24 16:30 01/12/24 16:00 01/12/24 15:30 01/12/24 15:15 01/12/24 15:00 01/12/24 15:00 Nasal Cannula 5 01/12/24 14:45 01/12/24 14:40 01/12/24 14:35 01/12/24 14:30 01/12/24 13:35 01/12/24 13:10 01/12/24 13:00 Nasal Cannula 5 01/12/24 12:10 01/12/24 12:00 01/12/24 11:55 01/12/24 11:40 01/12/24 11:25 01/12/24 11:20 01/12/24 11:15 01/12/24 11:10 01/12/24 11:00 Nasal Cannula 5 01/12/24 10:51 01/12/24 09:00 Nasal Cannula 6 01/12/24 08:00 Nasal Cannula 5 01/12/24 08:00 01/12/24 08:00 Nasal Cannula 6 01/12/24 07:00 Nasal Cannula 6 01/12/24 05:00 Nasal Cannula 4 01/12/24 04:00 01/12/24 04:00 Nasal Cannula 4 01/12/24 03:00 Nasal Cannula 4 Intake and Output 01/12/24 01/12/24 01/13/24 15:59 23:59 07:59 Intake Total 785 / 1645 500 / 1645 Output Total 0 / 0 Balance 785 / 1645 500 / 1645 Intake: Intake, Oral Amount 535 / 1395 500 / 1395 Intake (Blood Product) Amt 250 / 250 Red Blood Cells Unit 250 / 250 [id number] Output: Output, Urine Amount 0 / 0 Other: Number of Unmeasured Voids 1 1 Weight 37.19 kg Laboratory Results - last 24 hr 01/11/24 16:18: Hepatitis C Antibody Non reactive 01/12/24 05:45: WBC 18.2 H D, RBC 2.69 L, Hgb 5.5 L* D, Hct 19.3 L*, MCV 71.8 L, MCH 20.4 L, MCHC 28.4 L, RDW 18.3 H, Plt Count 606 H, MPV 6.9 L, Neut % (Auto) 90.1 H, Lymph % (Auto) 3.1 L, [place] % (Auto) 6.3, Eos % (Auto) 0.3, Baso % (Auto) 0.1, Neut # (Auto) 16.4 H, Lymph # (Auto) 0.6 L, [place] # (Auto) 1.2 H, Eos # (Auto) 0.1, Baso # (Auto) 0.0, Total Counted 100, Neutrophils % (Manual) 93 H, Lymphocytes % (Manual) 5 L, Monocytes % (Manual) 2, Platelet Estimate Slight increase, RBC Morphology Not Reportable, Hypochromasia 3+, Poikilocytosis 2+, Anisocytosis 1+, Sodium 131 L, Potassium 3.9, Chloride 93 L, Carbon Dioxide 37 H, Anion Gap 4.9 L, BUN 12 D, Creatinine 0.40 L, Estimated Creat Clear 32, Estimated GFR 159, Est GFR ( Amer) 193 D, Glucose 150 H, Calcium 7.9 L, Iron 22 L, TIBC 195 L, Iron Saturation 11.25540 L, Ferritin 56.5, Total Bilirubin 0.3, AST 24, ALT 13, Alkaline Phosphatase 158 H, Total Protein 5.3 L, Albumin 2.5 L D, Globulin 2.8, Albumin/Globulin Ratio 0.9 L, Procalcitonin 0.935, Blood Type Confirm O Positive 01/12/24 07:40: Blood Type O Positive, Antibody Screen Negative, Crossmatch (AHG) See Detail 01/12/24 17:45: Hgb 10.2 L D, Hct 32.0 L I & O for Labs for Last 24 Hours: Intake & Output 01/10/24 01/11/24 01/12/24 01/13/24 23:59 23:59 23:59 23:59 Intake Total 1645 / 1645 Output Total 0 / 0 Balance 1645 / 1645 Weight 37.195 kg 37.19 kg Microbiology Reports for the Last 24 Hours: Microbiology 01/11/24 18:55 Blood Blood Culture - Preliminary NO GROWTH AFTER 24 HOURS 01/11/24 18:52 Blood Blood Culture - Preliminary NO GROWTH AFTER 24 HOURS 01/11/24 07:25 Sputum - Expectorated Sputum Gram Stain - Final
[2024-01-13] MEDS: FLUTICASONE/UMECLIDIN/VILANTER 100/62.5/25MCG INHALER 1 PUFF IH (06:00)
[2024-01-13] MEDS: KETOROLAC 30MG/ML VIAL 15 MG IV (06:30)
[2024-01-13 07:13] LABS: Basophils # 0.1 K/mm3 (0-0.2); Basophils % 0.3 % (0.1-2.0); Eosinophils # 0.1 K/mm3 (0.0-0.4); Eosinophils % 0.4 % (0.1-12.0); Hematocrit 29.8 % (37.0-47.0); Hemoglobin 9.5 g/dL (12.2-16.2); Lymphocytes # 0.5 K/mm3 (0.7-4.5); Lymphocytes % 2.6 % (10-50); Mean Corpuscular HGB Conc 31.7 g/dL (31.8-35.4); Mean Corpuscular Hemoglobin 25.1 pg (27.0-31.2); Mean Corpuscular Volume 79.1 fl (81-99); Mean Platelet Volume 6.8 fl (7.4-10.4); Monocytes # 1.1 K/mm3 (0.1-1.0); Monocytes % 5.9 % (1.7-9.3); Neutrophils % 90.8 % (37.0-80.0); Platelet Count 585 K/mm3 (142-424); Red Blood Count 3.77 M/mm3 (4.20-5.40); Red Cell Distribution Width 19.7 % (11.5-17.5); White Blood Count 18.7 K/mm3 (4.8-10.8)
[2024-01-13 07:22] LABS: MANUAL DIFFERENTIAL MANUAL DIFFERENTIAL (MANUAL DIFF)
[2024-01-13 07:34] LABS: Alanine Aminotransferase 10 U/L (12-78); Albumin Level 2.2 g/dl (3.5-5.0); Alkaline Phosphatase 108 U/L (38-126); Aspartate Amino Transferase 18 U/L (14-36); Bilirubin,Direct 0.4 mg/dl (0.0-0.4); Bilirubin,Indirect 0.7 mg/dL (0.0-0.9); Bilirubin,Total 1.1 mg/dl (0.2-1.3); Bilirubin,Unconjugated 0.8 mg/dL (0.0-1.1); Chol/HDL Ratio 4.6 (1-3.5); Cholesterol 83 mg/dl (140-200); HDL Cholesterol 18 mg/dl (40-60); Total Protein,Serum 4.7 g/dl (6.3-8.2); Triglycerides 69 mg/dl (30-150); VLDL Cholesterol 14 mg/dL (0-40)
[2024-01-13 07:41] LABS: Alanine Aminotransferase 10 U/L (12-78); Albumin Level 2.4 g/dl (3.5-5.0); Albumin/Globulin Ratio 0.8 (1.1-1.8); Alkaline Phosphatase 105 U/L (38-126); Anion Gap 5.8 mEq/L (5-15); Aspartate Amino Transferase 20 U/L (14-36); Bilirubin,Total 1.1 mg/dl (0.2-1.3); Blood Urea Nitrogen 9 mg/dl (7-17); Carbon Dioxide 38 mmol/L (22.0-30.0); Chloride 93 mmol/L (98-107); Creatinine Clearance Estimated 32 mL/min (50-200); Estimated Glomerular Filt Rate 222 ml/min (>60); GFR (African American) 268 ML/MIN (>60); Globulin 2.9 g/dL (1.3-3.2); Glucose 113 mg/dl (74-100); Potassium 3.8 mmoL/L (3.5-5.1); Sodium 133 mmol/L (136-145); Total Protein,Serum 5.3 g/dl (6.3-8.2)
[2024-01-13 07:45] LABS: Direct LDL Cholesterol 58.14 mg/dL (100-129)
[2024-01-13] MEDS: CEFEPIME HCL 1 GM in 0.9 % SODIUM CHLORIDE 50 ML IV ×2 (09:01→21:30)
[2024-01-13] MEDS: SODIUM CHLORIDE 1,000MG TABLET 1000 MG PO (09:01)
[2024-01-13] MEDS: FUROSEMIDE 40MG/4ML VIAL 40 MG IV (09:01)
[2024-01-13] MEDS: AMIODARONE 200MG TABLET 200 MG PO (09:01)
[2024-01-13] MEDS: OXYCODONE 5MG IMMEDIATE RELEASE TABLET 5 MG PO (09:05)
[2024-01-13 09:30] LABS: Eosinophils % 1 % (0-3); Lymphocytes % 3 % (10-50); Monocytes % 2 % (2-9); Neutrophils % 94 % (42-76); Total Cells Counted 100
[2024-01-13 09:31] LABS: Anisocytosis 1+; Hypochromasia 3+; Microcytosis 1+; Platelet Estimate Marked Increase
--- NOTE | 2024-01-13 09:34 | EXP.PULM.PN ---
Subjective *Date: 01/13/24 *Time: 11:16 Interval history: No acute respiratory events overnight. Patient admits improvement in her respiratory distress. Pulmonology Exam Inpatient Vital signs and Labs for Last 24 Hours: Temp Pulse Resp BP Pulse Ox O2 Del Method O2 Flow Rate 98.5 F 95 H 18 106/60 L 97 Nasal Cannula 6 01/13/24 07:53 01/13/24 07:53 01/13/24 07:53 01/13/24 07:53 01/13/24 07:53 01/13/24 09:00 01/13/24 09:00 Laboratory Results - last 24 hr 01/12/24 05:45: Total Counted 100, Neutrophils % (Manual) 93 H, Lymphocytes % (Manual) 5 L, Monocytes % (Manual) 2, Platelet Estimate Slight increase, RBC Morphology Not Reportable, Hypochromasia 3+, Poikilocytosis 2+, Anisocytosis 1+, Procalcitonin 0.935 01/12/24 07:40: Blood Type O Positive, Antibody Screen Negative, Crossmatch (AHG) See Detail 01/12/24 17:45: Hgb 10.2 L D, Hct 32.0 L 01/13/24 05:52: WBC 18.7 H, RBC 3.77 L D, Hgb 9.5 L, Hct 29.8 L, MCV 79.1 L, MCH 25.1 L, MCHC 31.7 L, RDW 19.7 H, Plt Count 585 H, MPV 6.8 L, Neut % (Auto) 90.8 H, Lymph % (Auto) 2.6 L, [place] % (Auto) 5.9, Eos % (Auto) 0.4, Baso % (Auto) 0.3, Neut # (Auto) 17.0 H, Lymph # (Auto) 0.5 L, [place] # (Auto) 1.1 H, Eos # (Auto) 0.1, Baso # (Auto) 0.1, Total Counted 100, Neutrophils % (Manual) 94 H, Lymphocytes % (Manual) 3 L, Monocytes % (Manual) 2, Eosinophils % (Manual) 1, Platelet Estimate Marked increase, Hypochromasia 3+, Anisocytosis 1+, Microcytosis 1+, Sodium 133 L, Potassium 3.8, Chloride 93 L, Carbon Dioxide 38 H, Anion Gap 5.8, BUN 9, Creatinine 0.30 L D, Estimated Creat Clear 32, Estimated GFR 222, Est GFR ( Amer) 268 D, Glucose 113 H, Calcium 8.0 L, Total Bilirubin 1.1 01/13/24 05:52: Total Bilirubin 1.1, Direct Bilirubin 0.4, Conjugated Bilirubin 0.0, Indirect Bilirubin 0.7, Unconjugated Bilirubin 0.8, AST 20 01/13/24 05:52: AST 18, ALT 10 L 01/13/24 05:52: ALT 10 L, Alkaline Phosphatase 105 01/13/24 05:52: Alkaline Phosphatase 108, Total Protein 5.3 L 01/13/24 05:52: Total Protein 4.7 L, Albumin 2.4 L 01/13/24 05:52: Albumin 2.2 L, Globulin 2.9, Albumin/Globulin Ratio 0.8 L, Triglycerides 69, Cholesterol 83 L, LDL Cholesterol Direct 58.14 L, VLDL Cholesterol 14, HDL Cholesterol 18 L, Cholesterol/HDL Ratio 4.6 H Temp Pulse Resp BP Pulse Ox O2 Del Method O2 Flow Rate 97.4 F L 104 H 22 113/51 L 93 L Nasal Cannula 6 01/12/24 08:00 01/12/24 08:00 01/12/24 08:00 01/12/24 08:00 01/12/24 08:00 01/12/24 08:00 01/12/24 08:00 Laboratory Results - last 24 hr 01/11/24 16:18: WBC 27.6 H*, RBC 3.45 L, Hgb 7.2 L, Hct 24.3 L, MCV 70.4 L, MCH 20.8 L, MCHC 29.5 L, RDW 18.4 H, Plt Count 769 H, MPV 7.1 L, Neut % (Auto) 92.8 H, Lymph % (Auto) 1.7 L, [place] % (Auto) 4.6, Eos % (Auto) 0.6, Baso % (Auto) 0.3, Neut # (Auto) 25.6 H, Lymph # (Auto) 0.5 L, [place] # (Auto) 1.3 H, Eos # (Auto) 0.2, Baso # (Auto) 0.1, Total Counted 100, Neutrophils % (Manual) 88 H, Band Neutrophils % 3.0, Lymphocytes % (Manual) 4 L, Monocytes % (Manual) 5, Platelet Estimate Moderate increase, RBC Morphology Not Reportable, Hypochromasia 3+, Anisocytosis 2+, Microcytosis 2+, Macrocytosis 1+, Ovalocytes 1+, Sodium 128 L, Potassium 4.1, Chloride 88 L, Carbon Dioxide 36 H, Anion Gap 8.1, BUN 17, Creatinine 0.50 L, Estimated Creat Clear 32, Estimated GFR 123, Est GFR ( Amer) 149, Glucose 181 H, Calcium 8.6, Magnesium 1.7, Total Bilirubin 0.6, AST 25, ALT 16, Alkaline Phosphatase 109, NT-Pro-B Natriuret Pep 1250 H, Total Protein 6.4, Albumin 3.1 L, Globulin 3.3 H, Albumin/Globulin Ratio 0.9 L, Procalcitonin 1.01, Hepatitis C Antibody Non reactive, HIV 1&2 Antibody Rapid Nonreactive 01/11/24 16:42: Urine Color Yellow, Urine Appearance Clear, Urine pH 6.0, Ur Specific [place] >= 1.030, Urine Protein Trace, Urine Glucose (UA) Negative, Urine Ketones Trace, Urine Blood Negative, Urine Nitrate Negative, Urine Bilirubin 1+ A, Urine Urobilinogen 0.2, Ur Leukocyte Esterase Negative, Urine RBC 3-5, Urine WBC 10-20, Ur Squamous Epith Cells 10-20, Urine Bacteria 1+ 01/11/24 18:54: Chlamy pneumoniae PCR Not detected, Adenovirus (PCR) Not detected, B. pertussis DNA (PCR) Not detected, Coronavirus OC43 (PCR) Not detected, Coronavirus HKU1 (PCR) Not detected, Coronavirus 229E (PCR) Not detected, SARS-CoV-2 (PCR) Not detected, Coronavirus NL63 (PCR) Not detected, Human Metapneumovir PCR Not detected, Influenza A (H1) PCR Not detected, Influ A (H1N1/09) PCR Not detected, Influenza A (H3) PCR Not detected, Influenza Type A (PCR) Not detected, Influenza Type B (PCR) Not detected, M. pneumoniae (PCR) Not detected, Parainfluenza 1 (PCR) Not detected, Parainfluenza 2 (PCR) Not detected, Parainfluenza 3 (PCR) Not detected, Parainfluenza 4 (PCR) Not detected, RSV (PCR) Not detected, Entero/Rhino (PCR) Not detected 01/12/24 05:45: WBC 18.2 H D, RBC 2.69 L, Hgb 5.5 L* D, Hct 19.3 L*, MCV 71.8 L, MCH 20.4 L, MCHC 28.4 L, RDW 18.3 H, Plt Count 606 H, MPV 6.9 L, Neut % (Auto) 90.1 H, Lymph % (Auto) 3.1 L, [place] % (Auto) 6.3, Eos % (Auto) 0.3, Baso % (Auto) 0.1, Neut # (Auto) 16.4 H, Lymph # (Auto) 0.6 L, [place] # (Auto) 1.2 H, Eos # (Auto) 0.1, Baso # (Auto) 0.0, Sodium 131 L, Potassium 3.9, Chloride 93 L, Carbon Dioxide 37 H, Anion Gap 4.9 L, BUN 12 D, Creatinine 0.40 L, Estimated Creat Clear 32, Estimated GFR 159, Est GFR ( Amer) 193 D, Glucose 150 H, Calcium 7.9 L, Iron 22 L, TIBC 195 L, Iron Saturation 11.70956 L, Ferritin 56.5, Total Bilirubin 0.3, AST 24, ALT 13, Alkaline Phosphatase 158 H, Total Protein 5.3 L, Albumin 2.5 L D, Globulin 2.8, Albumin/Globulin Ratio 0.9 L 01/12/24 07:40: Crossmatch (AHG) See Detail I & O for Labs for Last 24 Hours: Intake & Output 01/10/24 01/11/24 01/12/24 01/13/24 23:59 23:59 23:59 23:59 Intake Total 164 / 1935 290 / 290 Output Total 0 / 0 0 / 0 Balance 164 / 1935 290 / 290 Weight 82 lb 81 lb 15.839 oz 80 lb Intake & Output 01/09/24 01/10/24 01/11/24 01/12/24 23:59 23:59 23:59 23:59 Intake Total 360 / 360 Output Total 0 / 0 Balance 360 / 360 Weight 82 lb 81 lb 15.839 oz Microbiology Reports for the Last 24 Hours: Microbiology 01/11/24 18:55 Blood Blood Culture - Preliminary NO GROWTH AFTER 24 HOURS 01/11/24 18:52 Blood Blood Culture - Preliminary NO GROWTH AFTER 24 HOURS 01/11/24 07:25 Sputum - Expectorated Sputum Gram Stain - Final Microbiology 01/11/24 07:25 Sputum - Expectorated Sputum Gram Stain - Final Constitutional: Present severe distress Head: Present normocephalic and atraumatic ENT: Present normal exam, normal oropharynx and mucous membranes moist Neck: Present normal inspection and full ROM Respiratory: Present rhonchi, wheezes, crackles, diminished air movement and able to speak in complete sentences Cardiac: Present S1/S2, Tachycardia and radial pulses present GI: Present soft and distention; Absent tenderness or guarding Rectal (female): Present deferred (female): Present deferred Skin: Present intact; Absent cyanosis or jaundice Neuro: Present alert, awake and oriented x 3 Extremities: Present normal inspection; Absent clubbing or cyanosis Psychiatric: Present normal affect and cooperative Assessment and Plan *Assessment and plan (1) Bilateral pneumonia: Status: Acute Qualifiers: Pneumonia type: due to unspecified organism Category: Medical Code(s): J18.9 - Pneumonia, unspecified organism (2) Lung collapse: Status: Acute Category: Medical Code(s): J98.19 - Other pulmonary collapse (3) Acute on chronic hypoxic respiratory failure: Status: Acute Category: Medical Code(s): J96.21 - Acute and chronic respiratory failure with hypoxia Plan Ms. Melo is a 68-year-old female greater than [id number] smoking, squamous cell lung cancer diagnosed in March 2023 presented with worsening respiratory distress leukocytosis and pulmonary was called for further evaluation and management. Patient during bronchoscopy in March 2023 noted to have extensive endobronchial lesion in her bronchus intermedius that resulted positive for malignancy upon biopsy. CT upon admission concerning worsening of the right BI lesion along with complete collapse of the right middle lobe airspace disease in the right lower lobe. The right upper lobe bronchus also appeared to be narrowed. Small right pleural effusion noted. Neutrophilic predominant leukocytosis upon admission improving. Severe anemia noted with a hemoglobin of 5.5. Continue to receive vancomycin cefepime azithromycin pending culture results. Patient refused chemotherapy patient admits she has been following with radiation oncology hospital and receiving radiation therapy and has surveillance CT scans since March 2023. Auscultation decreased breath sounds right lung balderas. Rhonchi. 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 Patient would benefit from evaluation at [facility], interventional pulmonary. Interval update: No acute respiratory vents overnight. Stable oxygen requirements. Pending cardiology and GI evaluations. Plan: Discontinue vancomycin. Continue cefepime and Azithromycin pending culture results. Follow with nasal MRSA PCR Continue oxygen supplementation to maintain O2 saturation goal of 90% and above currently discussed with the saturating 90% and above. Trelegy 100 inhaler along with albuterol/DuoNebs 4 times daily. Incentive spirometry and flutter valve # Thank you for involving pulmonary in this patient care. Will continue to follow.
[2024-01-13] MEDS: VANCOMYCIN HCL 750 MG in 0.9 % SODIUM CHLORIDE 250 ML 125 MG IV (09:44)
--- NOTE | 2024-01-13 11:54 | P.PN_ITS ---
Subjective Subjective Date: 01/13/24 Time: 10:30 Principal diagnosis: HFrEF, CAD Interval history: This is a 68-year-old female who was admitted to the hospital due to shortness of breath and increasing oxygen requirements. The patient has known lung cancer which appears to be causing an occlusion and narrowing in her right lung. The patient is also being treated for HFrEF. She was acutely anemic yesterday with a hemoglobin of 5.5. She did undergo packed red blood cells and her anemia has improved today. She was consulted by GI. She will need to undergo EGD once she has improved from her pneumonia and anemia. She is currently still getting IV antibiotics. The patient has known coronary artery disease as well and will need left cardiac catheterization as well once her anemia and pneumonia have improved. This morning she states that she is still having chest pain intermittently. Is in the substernal aspect of her chest. She has shortness of breath and states that this is better than when she was admitted to the hospital but is still present and she is requiring more oxygen than she does at home. She is on nasal cannula at 6 L/min. Her shortness of breath is associated with orthopnea. She denies any lower extremity edema. She denies any fever, chills, nausea, vomiting or diarrhea. Exam Data for Last 24 hours Vital signs and Labs for Last 24 Hours: Temp Pulse Resp BP Pulse Ox O2 Del Method O2 Flow Rate 97.9 F 92 H 18 122/66 95 Room Air 6 01/13/24 11:38 01/13/24 11:38 01/13/24 11:38 01/13/24 11:38 01/13/24 11:38 01/13/24 11:38 01/13/24 11:00 Laboratory Results - last 24 hr 01/12/24 05:45: Total Counted 100, Neutrophils % (Manual) 93 H, Lymphocytes % (Manual) 5 L, Monocytes % (Manual) 2, Platelet Estimate Slight increase, RBC Morphology Not Reportable, Hypochromasia 3+, Poikilocytosis 2+, Anisocytosis 1+ 01/12/24 07:40: Blood Type O Positive, Antibody Screen Negative, Crossmatch (AHG) See Detail 01/12/24 17:45: Hgb 10.2 L D, Hct 32.0 L 01/13/24 05:52: WBC 18.7 H, RBC 3.77 L D, Hgb 9.5 L, Hct 29.8 L, MCV 79.1 L, MCH 25.1 L, MCHC 31.7 L, RDW 19.7 H, Plt Count 585 H, MPV 6.8 L, Neut % (Auto) 90.8 H, Lymph % (Auto) 2.6 L, [place] % (Auto) 5.9, Eos % (Auto) 0.4, Baso % (Auto) 0.3, Neut # (Auto) 17.0 H, Lymph # (Auto) 0.5 L, [place] # (Auto) 1.1 H, Eos # (Auto) 0.1, Baso # (Auto) 0.1, Total Counted 100, Neutrophils % (Manual) 94 H, Lymphocytes % (Manual) 3 L, Monocytes % (Manual) 2, Eosinophils % (Manual) 1, Platelet Estimate Marked increase, Hypochromasia 3+, Anisocytosis 1+, Microcytosis 1+, Sodium 133 L, Potassium 3.8, Chloride 93 L, Carbon Dioxide 38 H , Anion Gap 5.8, BUN 9, Creatinine 0.30 L D, Estimated Creat Clear 32, Estimated GFR 222, Est GFR ( Amer) 268 D, Glucose 113 H, Calcium 8.0 L, Total Bilirubin 1.1 01/13/24 05:52: Total Bilirubin 1.1, Direct Bilirubin 0.4, Conjugated Bilirubin 0.0, Indirect Bilirubin 0.7, Unconjugated Bilirubin 0.8, AST 20 01/13/24 05:52: AST 18, ALT 10 L 01/13/24 05:52: ALT 10 L, Alkaline Phosphatase 105 01/13/24 05:52: Alkaline Phosphatase 108, Total Protein 5.3 L 01/13/24 05:52: Total Protein 4.7 L, Albumin 2.4 L 01/13/24 05:52: Albumin 2.2 L, Globulin 2.9, Albumin/Globulin Ratio 0.8 L, Triglycerides 69, Cholesterol 83 L, LDL Cholesterol Direct 58.14 L, VLDL Cholesterol 14, HDL Cholesterol 18 L, Cholesterol/HDL Ratio 4.6 H I & O for Last 24 hours: Intake & Output 01/10/24 01/11/24 01/12/24 01/13/24 23:59 23:59 23:59 23:59 Intake Total 1645 / 1935 290 / 290 Output Total 0 / 0 0 / 0 Balance 1644 290 / 290 Weight 82 lb 81 lb 15.839 oz 80 lb Microbiology Reports for the Last 24 Hours: Microbiology 01/12/24 03:06 Nose MRSA Culture - Final Negative 01/11/24 16:42 Urine,Clean Catch Urine Culture - Final Multiple organisms, suggests contamination. 01/11/24 18:55 Blood Blood Culture - Preliminary NO GROWTH AFTER 24 HOURS 01/11/24 18:52 Blood Blood Culture - Preliminary NO GROWTH AFTER 24 HOURS 01/11/24 07:25 Sputum - Expectorated Sputum Gram Stain - Final Constitutional Constitutional: no acute distress, thin and chronically ill appearing *Routine HEENT Exam Head: Present normocephalic and atraumatic ENT: Present mucous membranes moist *Routine Neck Exam Neck: Present supple, full ROM and normal carotid upstroke; Absent JVD, carotid bruit or lymphadenopathy *Routine Respiratory Exam Respiratory: Present CTA bilaterally, normal respiratory effort, able to speak in complete sentences and symmetric chest movement *Routine Cardiovascular Exam Cardiovascular: Present RRR, Normal S1, Normal S2 and murmur; Absent gallop *Routine Abdominal Exam Abdominal: Present soft and normoactive bowel sounds; Absent tenderness, distended or organomegaly *Routine Extremities Exam Extremities: Present full ROM, pulses intact and normal capillary refill; Absent cyanosis, clubbing or edema *Routine Skin Exam Skin: Present intact and warm; Absent erythema *Routine Neurological Exam Neurological: Present alert, oriented X3 and CN II-XII intact; Absent sensory deficit or motor deficit Routine Psychiatric Exam Psychiatric: Present normal affect Progress Note: A&P Assessment and plan (1) Bilateral pneumonia: Status: Acute (2) Acute on chronic hypoxic respiratory failure: Status: Acute (3) Acute on chronic HFrEF (heart failure with reduced ejection fraction): Status: Acute (4) Iron deficiency anemia: Status: Acute (5) Abnormal cardiovascular stress test: Status: Acute (6) CAD (coronary atherosclerotic disease): Status: Acute (7) Pulmonary emphysema: Status: Acute (8) Stenosis of carotid artery: Status: Acute (9) Paroxysmal atrial fibrillation: Status: Acute Assessment and Plan Assessment and Plan for All Diagnoses:: Plan: 1. The patient was admitted to the hospital with worsening shortness of breath and increasing oxygen requirements. The patient was found to have a right lower lobe pneumonia. She also has consolidation in the right middle lobe consistent with atelectasis. The patient does have malignancy noted to her right lung with obstruction in the right upper lower lobe and right upper lobe narrowing. The patient is currently undergoing radiation treatments for her lung cancer but has historically refused chemotherapy. The patient will likely need transfer to a tertiary care facility or outpatient follow-up at a tertiary care center for her lung cancer. Will defer this to pulmonology and the hospitalist. 2. The patient was anemic yesterday with a hemoglobin of 5.5. She did undergo transfusions and her hemoglobin is up to 9.5 today. She also had a GI consult for her iron deficiency anemia. 3. GI does agree that the patient needs to have an EGD once she has improved from her pneumonia and anemia. This is currently on hold until the anemia and pneumonia have improved. 4. The patient does have angina which she reports continues to worsen. She does have a known abnormal stress test with recent in-stent restenosis noted to her right coronary artery. The patient will need to undergo left cardiac catheterization but we would like to wait until she has had her EGD completed to make sure she has no active bleeding before possibly proceeding with stenting this lesion. 5. Her blood pressure is well-controlled. Her bisoprolol is currently being held due to low blood pressure. 6. Her LDL goal is less than 55. Her LDL is 58. She is on a statin. 7. The patient does have paroxysmal atrial fibrillation. Continue amiodarone. 8. She is on long-term anticoagulation with Eliquis. 9. The patient does have an elevated BNP and known HFrEF. She is being diuresed with IV Lasix. Will continue at this time. 10. Repeat BMP in the morning. 11. Further recommendations will be made pending the patient's response to treatment. Thank you for the opportunity to have participate in the care of this patient. All recommendations and orders are per Dr. Prather.
--- NOTE | 2024-01-13 13:09 | EXP.PN ---
Subjective *Date: 01/13/24 *Time: 13:09 Interval history: Patient still requiring 6 L of O2. Anemia markedly improved with transfusion Exam Data for Last 24 hours Vital signs and Labs for Last 24 Hours: Temp Pulse Resp BP Pulse Ox O2 Del Method O2 Flow Rate 97.9 F 92 H 18 122/66 95 Nasal Cannula 6 01/13/24 11:38 01/13/24 11:38 01/13/24 11:38 01/13/24 11:38 01/13/24 11:38 01/13/24 12:41 01/13/24 12:41 Laboratory Results - last 24 hr 01/12/24 07:40: Blood Type O Positive, Antibody Screen Negative, Crossmatch (AHG) See Detail 01/12/24 17:45: Hgb 10.2 L D, Hct 32.0 L 01/13/24 05:52: WBC 18.7 H, RBC 3.77 L D, Hgb 9.5 L, Hct 29.8 L, MCV 79.1 L, MCH 25.1 L, MCHC 31.7 L, RDW 19.7 H, Plt Count 585 H, MPV 6.8 L, Neut % (Auto) 90.8 H, Lymph % (Auto) 2.6 L, [place] % (Auto) 5.9, Eos % (Auto) 0.4, Baso % (Auto) 0.3, Neut # (Auto) 17.0 H, Lymph # (Auto) 0.5 L, [place] # (Auto) 1.1 H, Eos # (Auto) 0.1, Baso # (Auto) 0.1, Total Counted 100, Neutrophils % (Manual) 94 H, Lymphocytes % (Manual) 3 L, Monocytes % (Manual) 2, Eosinophils % (Manual) 1, Platelet Estimate Marked increase, Hypochromasia 3+, Anisocytosis 1+, Microcytosis 1+, Sodium 133 L, Potassium 3.8, Chloride 93 L, Carbon Dioxide 38 H, Anion Gap 5.8, BUN 9, Creatinine 0.30 L D, Estimated Creat Clear 32, Estimated GFR 222, Est GFR ( Amer) 268 D, Glucose 113 H, Calcium 8.0 L, Total Bilirubin 1.1 01/13/24 05:52: Total Bilirubin 1.1, Direct Bilirubin 0.4, Conjugated Bilirubin 0.0, Indirect Bilirubin 0.7, Unconjugated Bilirubin 0.8, AST 20 01/13/24 05:52: AST 18, ALT 10 L 01/13/24 05:52: ALT 10 L, Alkaline Phosphatase 105 01/13/24 05:52: Alkaline Phosphatase 108, Total Protein 5.3 L 01/13/24 05:52: Total Protein 4.7 L, Albumin 2.4 L 01/13/24 05:52: Albumin 2.2 L, Globulin 2.9, Albumin/Globulin Ratio 0.8 L, Triglycerides 69, Cholesterol 83 L, LDL Cholesterol Direct 58.14 L, VLDL Cholesterol 14, HDL Cholesterol 18 L, Cholesterol/HDL Ratio 4.6 H I & O for Last 24 hours: Intake & Output 01/10/24 01/11/24 01/12/24 01/13/24 23:59 23:59 23:59 23:59 Intake Total 1645 / 1935 290 / 290 Output Total 0 / 0 0 / 0 Balance 1645 / 1935 290 / 290 Weight 82 lb 81 lb 15.839 oz 80 lb Microbiology Reports for the Last 24 Hours: Microbiology 01/12/24 03:06 Nose MRSA Culture - Final Negative 01/11/24 16:42 Urine,Clean Catch Urine Culture - Final Multiple organisms, suggests contamination. 01/11/24 18:55 Blood Blood Culture - Preliminary NO GROWTH AFTER 24 HOURS 01/11/24 18:52 Blood Blood Culture - Preliminary NO GROWTH AFTER 24 HOURS 01/11/24 07:25 Sputum - Expectorated Sputum Gram Stain - Final Assessment and Plan *Assessment and plan (1) Iron deficiency anemia: Status: Acute Qualifiers: Iron deficiency anemia type: unspecified iron deficiency Qualified Code(s): D50.9 - Iron deficiency anemia, unspecified Category: Medical Code(s): D50.9 - Iron deficiency anemia, unspecified Plan Marked iron deficiency anemia. Patient did improve with blood transfusions. Hemoglobin improved from 5.5 up to 10.2 and now is 9.5 today. The patient is still not stable enough yet because of pneumonia/pulmonary failure to recommend MAC sedation and procedure. I would like to document Hemoccult testing and I will reorder this again.
--- NOTE | 2024-01-13 13:43 | ECG_ITS ---
APPROVED REPORT Exam: Resting ECG HR:118 bpm ECG Measurements Heart Rate 118 AXES QRSd 120 QRS -55 QT 330 T 60 QTc 400 Conclusion ATRIAL FIBRILLATION WITH RAPID VENTRICULAR RESPONSE LEFT AXIS DEVIATION [QRS AXIS < -30] MODERATE INTRAVENTRICULAR CONDUCTION DELAY [105+ ms QRS DURATION, 80+ ms Q/S IN V1/V2, NO Q AND 60+ ms R IN I/aVL/V5/V6] NONSPECIFIC ST & T-WAVE ABNORMALITY ABNORMAL ECG UNCONFIRMED REPORT Electronically signed by : Mk Reagan MD 01/15/2024 10:30:00
--- NOTE | 2024-01-13 13:46 | XR_ITS ---
FINAL REPORT CLINICAL HISTORY: worsing cough tachycardia COMPARISON: 01/11/2024 FINDINGS: A single portable view of the chest was obtained. The heart size and pulmonary vascularity are within normal limits. The mediastinum is within normal limits. There are worsening pulmonary opacities, right worse than left, consistent with worsening pneumonia. There is also a worsening focal left hilar opacity of uncertain etiology, which may represent atelectasis. The bony thorax is intact. IMPRESSION: Worsening pulmonary opacities consistent with worsening pneumonia, right worse than left. Worsening left hilar opacity of uncertain etiology, may represent atelectasis. Recommend follow-up radiographs. Reviewed, Interpreted and Dictated by Vinnie Wagner III, MD Transcribed by Lydia Shah Authenticated and [facility]
--- NOTE | 2024-01-13 13:49 | HMH.PTEV ---
Physical Therapy Evaluation Rehab PT IP Evaluation Start: 01/13/24 10:50 Freq: ONCE Status: Active Protocol: Document 01/13/24 13:44 RUBIN (Rec: 01/13/24 13:48 RUBIN [id number]) Subjective/History History History Per H&P: Hardik Melo is a 68-year-old female with a medical history significant for right lung cancer ( undergoing radiation therapy at [facility]), left lung cancer in remission, current tobacco smoker, CAD s/ p 2 stents, A-fib (on Eliquis) who presents after her PCP notified her of low iron levels and to go to the ED. However, patient states she has been having somewhat increased shortness of breath over the past week with increase in oxygen requirements from 2.5 L to 4 L at night. She also notes chronic productive cough that is slightly worse recently. Denies fever/chills, chest pain, abdominal pain, urinary symptoms, constipation/ diarrhea. Workup in the ED significant for WBC 27.6, hemoglobin 7.2, MCV 70.4, sodium 128. Respiratory panel normal. CXR suggestive of severe right lower lobe pneumonia, chest CTA suggestive of the same as well as obstruction of right lower lobe bronchus and severe narrowing of the right upper lobe bronchus. Case was discussed with ED provider and decision was made to admit patient for sepsis secondary to community-acquired pneumonia. Subjective Subjective Pt reports she was IND with all mobility without use of AD prior to admission. Pt lives in a mobile home with a few GERARDO. Pt not driving. Pt lives with her daughter who does the cooking, cleaning, and driving. Was on 3L of supplemental O2 at home. New diagnosis of cancer in past 12 No months? Rehab PT IP Eval Objective Appearance Patient Behavior Appropriate,Cooperative Patient Orientation Person,Place,Situation Difficulty following instructions none Speech Pattern Clear Ambulation Patient Able to Ambulate Yes Ambulation Observation IP General Gait Pattern Observation No Deviations/Normal Ambulation Distance (feet) 30 Ambulation Assistive Device None Ambulation Ability Supervision/Stand by Balance Ability to Arise Able, uses arms to help Sitting Balance Steady, safe Standing Balance Steady, wide stance Dynamic Sitting Balance Ability Good Dynamic Standing Balance Ability Good Transfers Bed Transfer Ability Independent Sit to Stand Bed Transfer Ability Independent Rehab PT IP prob,goals,plan Problems Date of Evaluation: 01/13/24 Rehab Potential Rehab Potential Innapropriate for Skilled Therapy Discharge Plan PT Discharge Plan Pt not appropriate for skilled acute care PT at this time d/ t pt?s mobility being at baseline/ independent. Eval Complexity Eval Charge Codes 10194 - Moderate Complexity PHYSICIAN CERTIFICATION: I certify the specified therapy services for Emileedmar Kameron are required, authorized, and reviewed every 30 days.
--- NOTE | 2024-01-13 14:08 | HMH.OTEV ---
OT Inpatient Evaluation Rehab OT IP Evaluation Start: 01/13/24 10:50 Freq: ONCE Status: Active Protocol: Document 01/13/24 14[facility] [facility] (Rec: 01/13/24 14:08 [facility] [id number]) Rehab OT IP Assessment Subjective History Pt oriented x 3 on arrival. Pt agreeable to engage in therapy evaluation. Pt admitted on 01/11/24 due to PNA. History and physical: Hardik Melo is a 68- year-old female with a medical history significant for right lung cancer (undergoing radiation therapy at [facility]), left lung cancer in remission, current tobacco smoker, CAD s/ p 2 stents, A-fib (on Eliquis) who presents after her PCP notified her of low iron levels and to go to the ED. However, patient states she has been having somewhat increased shortness of breath over the past week with increase in oxygen requirements from 2.5 L to 4 L at night. She also notes chronic productive cough that is slightly worse recently. Denies fever/chills, chest pain, abdominal pain, urinary symptoms, constipation/ diarrhea. Workup in the ED significant for WBC 27.6, hemoglobin 7.2, MCV 70.4, sodium 128. Respiratory panel normal. CXR suggestive of severe right lower lobe pneumonia, chest CTA suggestive of the same as well as obstruction of right lower lobe bronchus and severe narrowing of the right upper lobe bronchus. Case was discussed with ED provider and decision was made to admit patient for sepsis secondary to community-acquired pneumonia. Subjective I usually can do whatever I need to for myself. Prior to being in the hospital , pt lived with her daughter. Pt reports normally, she is independent with all ADLs such as feeding, dressing, and bathing. However, pt is dependent upon daughter for completion of all IADLs ( cooking, cleaning, laundry, etc). Pt is oxygen dependent; 3L. Pt does not use a rolling walker during functional transfers. Pt no longer drives. Pt's daughter is not home with her at all times, so there are periods of time she is home alone during the day. Objective Patient Orientation Person,Place,Birthday Right Upper Extremity Gross ROM WFL Left Upper Extremity Gross ROM WFL Bed Mobility bed mobility-scooting,bed mobility - supine/sit Assist Level Supervision/Stand by Transfer Training Sit/Stand Transfer Assist Level Supervision/Stand by Lower Body Dressing Ability Standby Assistance Upper Body Dressing Ability Standby Assistance Performing Toilet Hygiene Ability Standby Assistance Overall Commode/Toilet Transfer Ability Standby Assistance Commode/Toilet Transfer Technique Sit to/from Ambulatory Rehab OT IP prob,goals,plan Problems Date of Evaluation: 01/13/24 Rehab Potential Rehab Potential Innapropriate for Skilled Therapy Discharge Plan OT Discharge Plan Pt appears to be at her baseline with functional transfers and ADL independence . If patient is willing, therapist does recommend OT evaluation upon returning home for environmental safety and endurance. Pt can discharge home with daughter once she is medically stable per physician. Eval Complexity Eval Charge Codes 27906 - Low Complexity PHYSICIAN CERTIFICATION: I certify the specified therapy services for Alba Melo are required, authorized, and reviewed every 30 days.
[2024-01-13] MEDS: BISOPROLOL 5MG TABLET 5 MG PO (14:14)
--- NOTE | 2024-01-13 15:13 | PC.NURSE ---
PT IS RESTING IN BED. ALERT AND ORIENTED X4. EATING AND DRINKING WELL. O2 SATURATION HAS MAINTAINED 92-94% ON 6 L NC. PT REFUSED ELIQUIS, PLAVIX AND PREDNISONE THIS SHIFT. AMBULATES TO THE BATHROOM WITH 1 ASSIST. AFIB ON TELEMETRY. BISOPROLOL ORDERED FOR ELEVATED HR. REDNESS/STAGE 2 NOTED TO COCCYX. LUNG SOUNDS DIMINISHED WITH SCATTERED RHONCHI. ABDOMEN SOFT/NON TENDER WITH ACTIVE BOWEL SOUNDS.
--- NOTE | 2024-01-13 17:20 | EXP.PN ---
Subjective *Date: 01/13/24 *Time: 22:28 Interval history: Patient doing well, cough improved after starting steroids yesterday. Exam Data for Last 24 hours Vital signs and Labs for Last 24 Hours: Temp Pulse Resp BP Pulse Ox O2 Del Method O2 Flow Rate 97.8 F 100 H 14 91/55 L 96 Nasal Cannula 6 01/13/24 15:51 01/13/24 16:00 01/13/24 15:51 01/13/24 15:51 01/13/24 15:51 01/13/24 17:00 01/13/24 17:00 Laboratory Results - last 24 hr 01/12/24 07:40: Crossmatch (AHG) See Detail 01/12/24 17:45: Hgb 10.2 L D, Hct 32.0 L 01/13/24 05:52: WBC 18.7 H, RBC 3.77 L D, Hgb 9.5 L, Hct 29.8 L, MCV 79.1 L, MCH 25.1 L, MCHC 31.7 L, RDW 19.7 H, Plt Count 585 H, MPV 6.8 L, Neut % (Auto) 90.8 H, Lymph % (Auto) 2.6 L, [place] % (Auto) 5.9, Eos % (Auto) 0.4, Baso % (Auto) 0.3, Neut # (Auto) 17.0 H, Lymph # (Auto) 0.5 L, [place] # (Auto) 1.1 H, Eos # (Auto) 0.1, Baso # (Auto) 0.1, Total Counted 100, Neutrophils % (Manual) 94 H, Lymphocytes % (Manual) 3 L, Monocytes % (Manual) 2, Eosinophils % (Manual) 1, Platelet Estimate Marked increase, Hypochromasia 3+, Anisocytosis 1+, Microcytosis 1+, Sodium 133 L, Potassium 3.8, Chloride 93 L, Carbon Dioxide 38 H, Anion Gap 5.8, BUN 9, Creatinine 0.30 L D, Estimated Creat Clear 32, Estimated GFR 222, Est GFR ( Amer) 268 D, Glucose 113 H, Calcium 8.0 L, Total Bilirubin 1.1 01/13/24 05:52: Total Bilirubin 1.1, Direct Bilirubin 0.4, Conjugated Bilirubin 0.0, Indirect Bilirubin 0.7, Unconjugated Bilirubin 0.8, AST 20 01/13/24 05:52: AST 18, ALT 10 L 01/13/24 05:52: ALT 10 L, Alkaline Phosphatase 105 01/13/24 05:52: Alkaline Phosphatase 108, Total Protein 5.3 L 01/13/24 05:52: Total Protein 4.7 L, Albumin 2.4 L 01/13/24 05:52: Albumin 2.2 L, Globulin 2.9, Albumin/Globulin Ratio 0.8 L, Triglycerides 69, Cholesterol 83 L, LDL Cholesterol Direct 58.14 L, VLDL Cholesterol 14, HDL Cholesterol 18 L, Cholesterol/HDL Ratio 4.6 H I & O for Last 24 hours: Intake & Output 01/10/24 01/11/24 01/12/24 01/13/24 23:59 23:59 23:59 23:59 Intake Total 1645 / 1935 825 / 825 Output Total 0 / 0 400 / 400 Balance 1645 / 1935 425 / 425 Weight 37.195 kg 37.19 kg 36.287 kg Microbiology Reports for the Last 24 Hours: Microbiology 01/12/24 03:06 Nose MRSA Culture - Final Negative 01/11/24 16:42 Urine,Clean Catch Urine Culture - Final Multiple organisms, suggests contamination. 01/11/24 18:55 Blood Blood Culture - Preliminary NO GROWTH AFTER 24 HOURS 01/11/24 18:52 Blood Blood Culture - Preliminary NO GROWTH AFTER 24 HOURS Constitutional Constitutional: no acute distress, thin and chronically ill appearing *Routine HEENT Exam Head: Present normocephalic and atraumatic ENT: Present mucous membranes moist *Routine Neck Exam Neck: Present supple, full ROM and normal carotid upstroke; Absent JVD, carotid bruit or lymphadenopathy *Routine Respiratory Exam Respiratory: Present CTA bilaterally, normal respiratory effort, able to speak in complete sentences and symmetric chest movement *Routine Cardiovascular Exam Cardiovascular: Present RRR, Normal S1, Normal S2 and murmur; Absent gallop *Routine Abdominal Exam Abdominal: Present soft and normoactive bowel sounds; Absent tenderness, distended or organomegaly *Routine Extremities Exam Extremities: Present full ROM, pulses intact and normal capillary refill; Absent cyanosis, clubbing or edema *Routine Skin Exam Skin: Present intact and warm; Absent erythema *Routine Neurological Exam Neurological: Present alert, oriented X3 and CN II-XII intact; Absent sensory deficit or motor deficit Routine Psychiatric Exam Psychiatric: Present normal affect Assessment and Plan *Assessment and plan (1) Sepsis without septic shock: Status: Acute Category: Medical Code(s): A41.9 - Sepsis, unspecified organism (2) Paroxysmal atrial fibrillation: Status: Acute Category: Medical Code(s): I48.0 - Paroxysmal atrial fibrillation (3) CAD (coronary atherosclerotic disease): Status: Acute Qualifiers: Associated angina: without angina Coronary Disease-Associated Artery/Lesion type: [place] artery [place] vs. transplanted heart: [place] heart Qualified Code(s): I25.10 - Atherosclerotic heart disease of [place] coronary artery without angina pectoris Category: Medical Code(s): I25.10 - Atherosclerotic heart disease of [place] coronary artery without angina pectoris (4) Community acquired pneumonia: Status: Acute Qualifiers: Laterality: right Lung location: unspecified part of lung Qualified Code(s): J18.9 - Pneumonia, unspecified organism Category: Medical Code(s): J18.9 - Pneumonia, unspecified organism (5) Acute and chronic respiratory failure with hypoxia: Status: Acute Category: Medical Code(s): J96.21 - Acute and chronic respiratory failure with hypoxia Plan Hardik Melo is a 68-year-old female with a medical history significant for right lung cancer (undergoing radiation therapy at [facility]), left lung cancer in remission, current tobacco smoker, CAD s/p 2 stents, A-fib (on Eliquis), 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 However, patient states she has been having somewhat increased shortness of breath over the past week with increase in oxygen requirements from 2.5 L to 4 L at night. She also notes chronic productive cough that is slightly worse recently. Denies fever/chills, chest pain, abdominal pain, urinary symptoms, constipation/diarrhea. Workup in the ED significant for WBC 27.6, hemoglobin 7.2, MCV 70.4, sodium 128. Respiratory panel normal. CXR suggestive of severe right lower lobe pneumonia, chest CTA suggestive of the same as well as obstruction of right lower lobe bronchus and severe narrowing of the right upper lobe bronchus. Case was discussed with ED provider and decision was made to admit patient for sepsis secondary to community-acquired pneumonia. #Acute on chronic hypoxic respiratory failure #Community-acquired pneumonia #Sepsis ? CXR, CTA chest suggestive of severe right lower lobe pneumonia in the setting of lung cancer. ? Increase in home oxygen from 2.5 L to 4 L. Patient however does not look toxic appearing. - Pulmonology consulted, recommended continuing antibiotics. ? Continue cefepime, azithromycin day 3/5. Vanc discontinued per pulmonology. MRSA screen negative. - WBC improved from plauteaued at 18 today, patient feels well however. ? Follow-up blood, sputum cultures. #Acute on chronic HFmrEF #CAD s/p 2 stents #History of left subclavian artery stenosis ? Several week worsening of lower extremity edema. BNP 1250. ? ECHO 12/10/2023 LVEF 45%, severe hypokinesis of the basal septal, inferior septal, and anteroseptal LV [place]. ? Evaluated by cardiology outpatient, has a known RCA in-stent restenosis. Planned for outpatient LHC and left subclavian angiogram with history of left subclavian artery stenosis. ? Transitioned to Lasix 40mg daily after soft pressures, dc'ed IV Lasix 40 mg daily. ? Started Plavix (allergic to aspirin), atorvastatin 40 mg. Does not appear patient has been taking these medications. ? Cardiology consulted, planning for inpatient LHC once GI evaluated acute on chronic anemia. #Acute on chornic microcytic anemia ? Initial hemoglobin 7.2, MCV 70. - Hgb to 5.2 today, improved to 10 after 2 units pRBC. - Irons studies show significant iron defiency anema. Patient denies bloody/dark stools. However is in antiplatelets and Eliquis. - GI consulted, plan for colonoscopy once infection and hypoxia improve. Plan to give IV iron once infection improves. #Chronic hyponatremia ? Initial sodium 128, however sodium in the past year has been high 120s, low 130s. ? This is in the setting of lung cancer which is highly suggestive of SIADH. ? Started salt tab 1000 mg daily. Na improved to 133. #COPD exacerbation #Current tobacco smoker ? DuoNebs as needed. - Patient cough a lot more today, more restricted airways. - Started prednisone 40mg day 2/5. ? Patient is symptomatic and needs home maintenance inhaler. Pending pulmonology recommendations. ? Patient refuses nicotine patches. ? Counseled on smoke cessation, patient states she has decreased significantly and smoking to ~4 cigarettes a day. #Lung cancer #Right lower lobe bronchus obstruction #Right upper lobe bronchus narrowing ? Right lung cancer undergoing radiation therapy at [facility]. ? History of left lung cancer in remission after 30 rounds of radiation therapy. ? Bronchus abnormalities found on CTA chest. Likely in the setting of right-sided lung cancer. ? Pulmonology consulted, recommended further evaluation at [facility]. Reached out to , and made outpatient appt. #A-fib ? Currently rate controlled. ? Resumed home amiodarone, Eliquis. Hwoever, patient is currently refusing Eliquis. - Restarted and increased home bisoprolol to 5mg after patient's HR sustained in 120-130s. Improved to 90s. #Severe protein malnutrition ? Nutrition consulted, pending recommendations. Full code DVT prophylaxis: Home Eliquis
[2024-01-13] MEDS: AZITHROMYCIN 500 MG in 0.9 % SODIUM CHLORIDE 250 ML 250 MG IV (17:37)
[2024-01-13] MEDS: AEROCHAMBER/OPTIHALER 1 UNIT MC (21:23)
[2024-01-13] MEDS: ALBUTEROL-HFA 90MCG/PUFF INHALER 8GM 2 PUFF IH (21:23)
[2024-01-13] MEDS: IPRATROPIUM/ALBUTEROL 3 ML NEB IH (22:02)
[2024-01-13 23:03] LABS: Occult Blood,Stool Positive (Negative)
--- NOTE | 2024-01-13 23:32 | EXP.EVENT.NO ---
Was called to bedside this evening due to patient's O2 sats dropping into the low 80s. She got up to go to the bathroom, took her oxygen off, had a coughing fit. Necessitated Ventimask at 50% for O2 sats to improved to 87 to 88%. Given DuoNeb with mild improvement. Goal sat greater than 88% overnight. Will wean if tolerated. Of note as well, patient's stool occult returned positive. Initiated on pantoprazole 40 mg IV twice daily along with holding Eliquis for now. Repeat CBC ordered for the morning for serial H&H. Hemoglobin currently 9.5, down from 10.2 yesterday, will monitor for transfusion needs. Threshold hemoglobin less than 7
[2024-01-14] VITALS (32 sets, daily range): BP systolic 71–166; BP diastolic 36–76; PULSE 9–110; RESP 17–46; TEMP 36.5–37.6; O2SAT 85–100; BMI 15.5
--- NOTE | 2024-01-14 01:41 | PC.NURSE ---
01/13/242149: At 2142 Dr. Destin HUNT was contacted about low oxygen satuaration levels 84-86. Pt was on NC at 6 liters than switched to simple mask at 6 liters. Pt. had PRN inhaler of Albuterol and continued with low oxygen level. at 2145 Dr. Weir at bedside to assess patient. Pt. agreed to Nebulizer treatment . Some improvement noted after the neb. treatment.
--- NOTE | 2024-01-14 06:00 | XR_ITS ---
PROCEDURE INFORMATION: Exam: XR Chest Exam date and time: 01/14/2024 6:06 AM Age: 68 years old Clinical indication: Pain; Other: Pnm TECHNIQUE: Imaging protocol: Radiologic exam of the chest. Views: 1 view. COMPARISON: CT ANGIO CHEST PE PROTOCOL 01/11/2024 7:34 PM FINDINGS: Lungs: Advanced centrilobular emphysema is again visualized. Chronic appearing changes are noted bilaterally. Right-sided airspace disease is increasing when compared to the prior study. Pleural spaces: Unremarkable. No pleural effusion. No pneumothorax. Heart/Mediastinum: Unremarkable. No cardiomegaly. Bones/joints: Unremarkable. IMPRESSION: Advanced centrilobular emphysema is again visualized. Chronic appearing changes are noted bilaterally. Right-sided airspace disease is increasing when compared to the prior study.
[2024-01-14 06:32] LABS: Basophils % 0.2 % (0.1-2.0); Eosinophils # 0.1 K/mm3 (0.0-0.4); Eosinophils % 0.5 % (0.1-12.0); Hematocrit 30.7 % (37.0-47.0); Hemoglobin 9.4 g/dL (12.2-16.2); Lymphocytes # 0.6 K/mm3 (0.7-4.5); Lymphocytes % 3.4 % (10-50); Mean Corpuscular HGB Conc 30.6 g/dL (31.8-35.4); Mean Corpuscular Hemoglobin 24.8 pg (27.0-31.2); Mean Platelet Volume 7.1 fl (7.4-10.4); Monocytes # 1.1 K/mm3 (0.1-1.0); Monocytes % 5.8 % (1.7-9.3); Neutrophils % 90.2 % (37.0-80.0); Platelet Count 650 K/mm3 (142-424); Red Blood Count 3.79 M/mm3 (4.20-5.40); Red Cell Distribution Width 21.3 % (11.5-17.5); White Blood Count 18.9 K/mm3 (4.8-10.8)
--- NOTE | 2024-01-14 06:33 | INFXCTL.NOTE ---
01/14/24 0630: Pt is resting in bed, Alert and orientated x 4. Pt. states her breathing is a little better this AM. Pt. was on a nasal cannul and O2 sats drecreaed to 84-86. Pt used PRN inhaler Albuterol. Pt. was coughing a lot. NC switched to simple mask 6 liters. O2 sats remained 84-88 %. Pt. had one nebulizer treatment overnight and was able to sleep some. O2 sats overnight 88-92%. Pt. refused muliple medications yesterday. Medical team aware. Personal items and call melgar in reach.
[2024-01-14 06:45] LABS: Alanine Aminotransferase 12 U/L (12-78); Albumin Level 2.4 g/dl (3.5-5.0); Albumin/Globulin Ratio 0.8 (1.1-1.8); Alkaline Phosphatase 112 U/L (38-126); Anion Gap 4.9 mEq/L (5-15); Aspartate Amino Transferase 20 U/L (14-36); Bilirubin,Total 0.7 mg/dl (0.2-1.3); Blood Urea Nitrogen 12 mg/dl (7-17); Calcium 8.2 mg/dl (8.4-10.2); Carbon Dioxide 39 mmol/L (22.0-30.0); Chloride 94 mmol/L (98-107); Creatinine Clearance Estimated 32 mL/min (50-200); Estimated Glomerular Filt Rate 222 ml/min (>60); GFR (African American) 268 ML/MIN (>60); Globulin 2.9 g/dL (1.3-3.2); Glucose 120 mg/dl (74-100); Potassium 3.9 mmoL/L (3.5-5.1); Sodium 134 mmol/L (136-145); Total Protein,Serum 5.3 g/dl (6.3-8.2)
[2024-01-14 06:48] LABS: MANUAL DIFFERENTIAL MANUAL DIFFERENTIAL (MANUAL DIFF)
[2024-01-14 07:11] LABS: Lymphocytes % 1 % (10-50); Monocytes % 2 % (2-9); Neutrophils % 97 % (42-76); Platelet Estimate Moderate Increase; RBC Morphology Normal; Total Cells Counted 100
[2024-01-14] MEDS: BISOPROLOL 5MG TABLET 5 MG PO (08:43)
[2024-01-14] MEDS: SODIUM CHLORIDE 1,000MG TABLET 1000 MG PO (08:43)
[2024-01-14] MEDS: AMIODARONE 200MG TABLET 200 MG PO (08:43)
[2024-01-14] MEDS: APIXABAN 5MG TABLET 5 MG PO (08:43)
[2024-01-14] MEDS: FUROSEMIDE 40 MG TABLET PO (08:43)
[2024-01-14] MEDS: PANTOPRAZOLE 40MG VIAL 40 MG IV (08:44)
[2024-01-14] MEDS: SODIUM CHLORIDE 0.9% 10ML VIAL 10 ML IV (08:44)
[2024-01-14] MEDS: CEFEPIME HCL 2 GM in 0.9 % SODIUM CHLORIDE 100 ML IV (08:58)
--- NOTE | 2024-01-14 09:24 | EXP.PHA.PN ---
Subjective *Date: 01/14/24 *Time: :24 Medical Exam Vital signs and Labs for Last 24 Hours: Vital Signs Temp Pulse Pulse Resp BP Pulse Ox O2 Del Method 01/14/24 08:00 80 01/14/24 08:00 99.3 F 83 17 109/59 L 94 L Non-Rebreather 01/14/24 07:36 Simple Mask 01/14/24 06:55 91 L Venturi Mask 01/14/24 06:47 Simple Mask 01/14/24 05:00 Simple Mask 01/14/24 04:00 9 L 01/14/24 04:00 99.5 F 88 22 154/63 H 90 L Simple Mask 01/14/24 03:00 Simple Mask 01/14/24 01:00 Simple Mask 01/14/24 00:00 90 01/14/24 00:00 90 L Venturi Mask 01/14/24 00:00 99.2 F 88 20 104/54 L 91 L 01/13/24 23:55 Venturi Mask 01/13/24 23:00 Simple Mask 01/13/24 22:04 93 H 01/13/24 22:04 92 H 01/13/24 21:00 Simple Mask 01/13/24 20:00 88 L Nasal Cannula 01/13/24 20:00 90 01/13/24 20:00 98.5 F 84 16 97/52 L 95 Nasal Cannula 01/13/24 18:38 Nasal Cannula 01/13/24 17:00 Nasal Cannula 01/13/24 16:00 100 H 01/13/24 16:00 Nasal Cannula 01/13/24 15:51 97.8 F 88 14 91/55 L 96 Room Air 01/13/24 14:42 Nasal Cannula 01/13/24 12:41 Nasal Cannula 01/13/24 12:00 90 01/13/24 11:38 97.9 F 92 H 18 122/66 95 Room Air 01/13/24 11:00 Nasal Cannula O2 Flow Rate FiO2 01/14/24 08:00 01/14/24 08:00 01/14/24 07:36 6 01/14/24 06:55 15 50 01/14/24 06:47 6 01/14/24 05:00 6 01/14/24 04:00 01/14/24 04:00 01/14/24 03:00 6 01/14/24 01:00 6 01/14/24 00:00 01/14/24 00:00 15 50 01/14/24 00:00 01/13/24 23:55 15 50 01/13/24 23:00 6 01/13/24 22:04 01/13/24 22:04 01/13/24 21:00 6 01/13/24 20:00 6 01/13/24 20:00 01/13/24 20:00 6 01/13/24 18:38 6 01/13/24 17:00 6 01/13/24 16:00 01/13/24 16:00 6 01/13/24 15:51 01/13/24 14:42 6 01/13/24 12:41 6 01/13/24 12:00 01/13/24 11:38 01/13/24 11:00 6 Intake and Output 01/13/24 01/14/24 01/14/24 23:59 07:59 15:59 Intake Total 495 / 1025 Output Total 200 / 600 150 / 150 Balance 295 / 425 -150 / -150 Intake: Intake, Oral Amount 200 / 680 Intake, Total IV Amount 295 / 345 Cefepime HCl 1 gm In 0.9 % 45 / 95 Sodium Chloride 50 ml @ 100 mls /hr IV Q12H [facility] Rx#:[id number] Vancomycin HCl 750 mg In 0.9 % 250 / 250 Sodium Chloride 250 ml @ 125 mls/hr IV Q36H [facility] Rx#:[id number] Output: Output, Urine Amount 200 / 600 150 / 150 Other: Number of Unmeasured Voids 0 0 Number of Bowel Movements 1 Weight 37.195 kg Patient Weight 01/14/24 23:59 Weight 37.195 kg Laboratory Results - last 24 hr 01/13/24 05:52: Total Counted 100, Neutrophils % (Manual) 94 H, Lymphocytes % (Manual) 3 L, Monocytes % (Manual) 2, Eosinophils % (Manual) 1, Platelet Estimate Marked increase, Hypochromasia 3+, Anisocytosis 1+, Microcytosis 1+ 01/13/24 21:53: Stool Occult Blood Positive A 01/14/24 05:40: WBC 18.9 H, RBC 3.79 L, Hgb 9.4 L, Hct 30.7 L, MCV 81.0, MCH 24.8 L, MCHC 30.6 L, RDW 21.3 H, Plt Count 650 H, MPV 7.1 L, Neut % (Auto) 90.2 H, Lymph % (Auto) 3.4 L, [place] % (Auto) 5.8, Eos % (Auto) 0.5, Baso % (Auto) 0.2, Neut # (Auto) 17.0 H, Lymph # (Auto) 0.6 L, [place] # (Auto) 1.1 H, Eos # (Auto) 0.1, Baso # (Auto) 0.0, Total Counted 100, Neutrophils % (Manual) 97 H, Lymphocytes % (Manual) 1 L, Monocytes % (Manual) 2, Platelet Estimate Moderate increase, RBC Morphology Normal, Sodium 134 L, Potassium 3.9, Chloride 94 L, Carbon Dioxide 39 H, Anion Gap 4.9 L, BUN 12 D, Creatinine 0.30 L, Estimated Creat Clear 32, Estimated GFR 222, Est GFR ( Amer) 268, Glucose 120 H, Calcium 8.2 L, Total Bilirubin 0.7, AST 20, ALT 12, Alkaline Phosphatase 112, Total Protein 5.3 L, Albumin 2.4 L, Globulin 2.9, Albumin/Globulin Ratio 0.8 L I & O for Labs for Last 24 Hours: Intake & Output 01/11/24 01/12/24 01/13/24 01/14/24 23:59 23:59 23:59 23:59 Intake Total 1645 / 1935 1025 / 1025 Output Total 0 / 0 600 / 600 150 / 150 Balance 1645 / 1935 425 / 425 -150 / -150 Weight 37.195 kg 37.19 kg 36.287 kg 37.195 kg Microbiology Reports for the Last 24 Hours: Microbiology 01/11/24 07:25 Sputum - Expectorated Sputum Gram Stain - Final 01/11/24 07:25 Sputum - Expectorated Sputum Sputum Culture - Preliminary 01/11/24 18:55 Blood Blood Culture - Preliminary NO GROWTH AFTER 48 HOURS 01/11/24 18:52 Blood Blood Culture - Preliminary NO GROWTH AFTER 48 HOURS 01/12/24 03:06 Nose MRSA Culture - Final Negative 01/11/24 16:42 Urine,Clean Catch Urine Culture - Final Multiple organisms, suggests contamination. The patient's infection will respond to the chosen ABx?: Yes Is the patient receiving the right drug, dose, and route?: Yes Could a more targeted ABx be ordered?: No (WBC DECREASED FROM 27.6 TO 18.9K. 99.3 TMAX. CONTINUE CURRENT.)
--- NOTE | 2024-01-14 09:49 | EXP.PULM.PN ---
Subjective *Date: 01/14/24 *Time: 11:22 Interval history: Admits worsening respiratory symptoms. Pulmonology Exam Inpatient Vital signs and Labs for Last 24 Hours: Temp Pulse Resp BP Pulse Ox O2 Del Method O2 Flow Rate 99.3 F 83 17 109/59 L 94 L Non-Rebreather 6 01/14/24 08:00 01/14/24 08:00 01/14/24 08:00 01/14/24 08:00 01/14/24 08:00 01/14/24 08:00 01/14/24 07:36 FiO2 50 01/14/24 06:55 Laboratory Results - last 24 hr 01/13/24 21:53: Stool Occult Blood Positive A 01/14/24 05:40: WBC 18.9 H, RBC 3.79 L, Hgb 9.4 L, Hct 30.7 L, MCV 81.0, MCH 24.8 L, MCHC 30.6 L, RDW 21.3 H, Plt Count 650 H, MPV 7.1 L, Neut % (Auto) 90.2 H, Lymph % (Auto) 3.4 L, [place] % (Auto) 5.8, Eos % (Auto) 0.5, Baso % (Auto) 0.2, Neut # (Auto) 17.0 H, Lymph # (Auto) 0.6 L, [place] # (Auto) 1.1 H, Eos # (Auto) 0.1, Baso # (Auto) 0.0, Total Counted 100, Neutrophils % (Manual) 97 H, Lymphocytes % (Manual) 1 L, Monocytes % (Manual) 2, Platelet Estimate Moderate increase, RBC Morphology Normal, Sodium 134 L, Potassium 3.9, Chloride 94 L, Carbon Dioxide 39 H, Anion Gap 4.9 L, BUN 12 D, Creatinine 0.30 L, Estimated Creat Clear 32, Estimated GFR 222, Est GFR ( Amer) 268, Glucose 120 H, Calcium 8.2 L, Total Bilirubin 0.7, AST 20, ALT 12, Alkaline Phosphatase 112, Total Protein 5.3 L, Albumin 2.4 L, Globulin 2.9, Albumin/Globulin Ratio 0.8 L Temp Pulse Resp BP Pulse Ox O2 Del Method O2 Flow Rate 97.4 F L 104 H 22 113/51 L 93 L Nasal Cannula 6 01/12/24 08:00 01/12/24 08:00 01/12/24 08:00 01/12/24 08:00 01/12/24 08:00 01/12/24 08:00 01/12/24 08:00 Laboratory Results - last 24 hr 01/11/24 16:18: WBC 27.6 H*, RBC 3.45 L, Hgb 7.2 L, Hct 24.3 L, MCV 70.4 L, MCH 20.8 L, MCHC 29.5 L, RDW 18.4 H, Plt Count 769 H, MPV 7.1 L, Neut % (Auto) 92.8 H, Lymph % (Auto) 1.7 L, [place] % (Auto) 4.6, Eos % (Auto) 0.6, Baso % (Auto) 0.3, Neut # (Auto) 25.6 H, Lymph # (Auto) 0.5 L, [place] # (Auto) 1.3 H, Eos # (Auto) 0.2, Baso # (Auto) 0.1, Total Counted 100, Neutrophils % (Manual) 88 H, Band Neutrophils % 3.0, Lymphocytes % (Manual) 4 L, Monocytes % (Manual) 5, Platelet Estimate Moderate increase, RBC Morphology Not Reportable, Hypochromasia 3+, Anisocytosis 2+, Microcytosis 2+, Macrocytosis 1+, Ovalocytes 1+, Sodium 128 L, Potassium 4.1, Chloride 88 L, Carbon Dioxide 36 H, Anion Gap 8.1, BUN 17, Creatinine 0.50 L, Estimated Creat Clear 32, Estimated GFR 123, Est GFR ( Amer) 149, Glucose 181 H, Calcium 8.6, Magnesium 1.7, Total Bilirubin 0.6, AST 25, ALT 16, Alkaline Phosphatase 109, NT-Pro-B Natriuret Pep 1250 H, Total Protein 6.4, Albumin 3.1 L, Globulin 3.3 H, Albumin/Globulin Ratio 0.9 L, Procalcitonin 1.01, Hepatitis C Antibody Non reactive, HIV 1&2 Antibody Rapid Nonreactive 01/11/24 16:42: Urine Color Yellow, Urine Appearance Clear, Urine pH 6.0, Ur Specific [place] >= 1.030, Urine Protein Trace, Urine Glucose (UA) Negative, Urine Ketones Trace, Urine Blood Negative, Urine Nitrate Negative, Urine Bilirubin 1+ A, Urine Urobilinogen 0.2, Ur Leukocyte Esterase Negative, Urine RBC 3-5, Urine WBC 10-20, Ur Squamous Epith Cells 10-20, Urine Bacteria 1+ 01/11/24 18:54: Chlamy pneumoniae PCR Not detected, Adenovirus (PCR) Not detected, B. pertussis DNA (PCR) Not detected, Coronavirus OC43 (PCR) Not detected, Coronavirus HKU1 (PCR) Not detected, Coronavirus 229E (PCR) Not detected, SARS-CoV-2 (PCR) Not detected, Coronavirus NL63 (PCR) Not detected, Human Metapneumovir PCR Not detected, Influenza A (H1) PCR Not detected, Influ A (H1N1/09) PCR Not detected, Influenza A (H3) PCR Not detected, Influenza Type A (PCR) Not detected, Influenza Type B (PCR) Not detected, M. pneumoniae (PCR) Not detected, Parainfluenza 1 (PCR) Not detected, Parainfluenza 2 (PCR) Not detected, Parainfluenza 3 (PCR) Not detected, Parainfluenza 4 (PCR) Not detected, RSV (PCR) Not detected, Entero/Rhino (PCR) Not detected 01/12/24 05:45: WBC 18.2 H D, RBC 2.69 L, Hgb 5.5 L* D, Hct 19.3 L*, MCV 71.8 L, MCH 20.4 L, MCHC 28.4 L, RDW 18.3 H, Plt Count 606 H, MPV 6.9 L, Neut % (Auto) 90.1 H, Lymph % (Auto) 3.1 L, [place] % (Auto) 6.3, Eos % (Auto) 0.3, Baso % (Auto) 0.1, Neut # (Auto) 16.4 H, Lymph # (Auto) 0.6 L, [place] # (Auto) 1.2 H, Eos # (Auto) 0.1, Baso # (Auto) 0.0, Sodium 131 L, Potassium 3.9, Chloride 93 L, Carbon Dioxide 37 H, Anion Gap 4.9 L, BUN 12 D, Creatinine 0.40 L, Estimated Creat Clear 32, Estimated GFR 159, Est GFR ( Amer) 193 D, Glucose 150 H, Calcium 7.9 L, Iron 22 L, TIBC 195 L, Iron Saturation 11.45919 L, Ferritin 56.5, Total Bilirubin 0.3, AST 24, ALT 13, Alkaline Phosphatase 158 H, Total Protein 5.3 L, Albumin 2.5 L D, Globulin 2.8, Albumin/Globulin Ratio 0.9 L 01/12/24 07:40: Crossmatch (AHG) See Detail I & O for Labs for Last 24 Hours: Intake & Output 01/11/24 01/12/24 01/13/24 01/14/24 23:59 23:59 23:59 23:59 Intake Total 1645 / 1935 1025 / 1025 Output Total 0 / 0 600 / 600 150 / 150 Balance 1645 / 1935 425 / 425 -150 / -150 Weight 82 lb 81 lb 15.839 oz 80 lb 82 lb Intake & Output 01/09/24 01/10/24 01/11/24 01/12/24 23:59 23:59 23:59 23:59 Intake Total 360 / 360 Output Total 0 / 0 Balance 360 / 360 Weight 82 lb 81 lb 15.839 oz Microbiology Reports for the Last 24 Hours: Microbiology 01/11/24 07:25 Sputum - Expectorated Sputum Gram Stain - Final 01/11/24 07:25 Sputum - Expectorated Sputum Sputum Culture - Preliminary 01/11/24 18:55 Blood Blood Culture - Preliminary NO GROWTH AFTER 48 HOURS 01/11/24 18:52 Blood Blood Culture - Preliminary NO GROWTH AFTER 48 HOURS 01/12/24 03:06 Nose MRSA Culture - Final Negative 01/11/24 16:42 Urine,Clean Catch Urine Culture - Final Multiple organisms, suggests contamination. Microbiology 01/11/24 07:25 Sputum - Expectorated Sputum Gram Stain - Final Constitutional: Present severe distress Head: Present normocephalic and atraumatic ENT: Present normal exam, normal oropharynx and mucous membranes moist Neck: Present normal inspection and full ROM Respiratory: Present rhonchi, wheezes, crackles, diminished air movement and able to speak in complete sentences Cardiac: Present S1/S2, Tachycardia and radial pulses present GI: Present soft and distention; Absent tenderness or guarding Rectal (female): Present deferred (female): Present deferred Skin: Present intact; Absent cyanosis or jaundice Neuro: Present alert, awake and oriented x 3 Extremities: Present normal inspection; Absent clubbing or cyanosis Psychiatric: Present normal affect and cooperative Assessment and Plan *Assessment and plan (1) Bilateral pneumonia: Status: Acute Qualifiers: Pneumonia type: due to unspecified organism Category: Medical Code(s): J18.9 - Pneumonia, unspecified organism (2) Lung collapse: Status: Acute Category: Medical Code(s): J98.19 - Other pulmonary collapse (3) Acute on chronic hypoxic respiratory failure: Status: Acute Category: Medical Code(s): J96.21 - Acute and chronic respiratory failure with hypoxia Plan Ms. Melo is a 68-year-old female greater than [id number] smoking, squamous cell lung cancer diagnosed in March 2023 presented with worsening respiratory distress leukocytosis and pulmonary was called for further evaluation and management. Patient during bronchoscopy in March 2023 noted to have extensive endobronchial lesion in her bronchus intermedius that resulted positive for malignancy upon biopsy. CT upon admission concerning worsening of the right BI lesion along with complete collapse of the right middle lobe airspace disease in the right lower lobe. The right upper lobe bronchus also appeared to be narrowed. Small right pleural effusion noted. Neutrophilic predominant leukocytosis upon admission improving. Severe anemia noted with a hemoglobin of 5.5. Continue to receive vancomycin cefepime azithromycin pending culture results. Patient refused chemotherapy patient admits she has been following with radiation oncology at [facility] and receiving radiation therapy and has surveillance CT scans since March 2023. On initial examination auscultation decreased breath sounds right lung balderas. Rhonchi. 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 Patient would benefit [facility] at [facility], interventional pulmonary. Interval update: Afebrile. Hemodynamically stable. Stable leukocytosis. Worsening oxygen requirements. Chest x-ray this morning concerning for worsening airspace disease/collapse of right lower lobe. Nasal MRSA PCR negative. Blood cultures no growth at 48 hours. Plan: Given patient's continued worsening respiratory symptoms with chest x-ray showing worsening pneumonia/leukocytosis in the setting of endobronchial cancer/fibrosis patient would benefit from transferring to [facility] for interventional pulmonary eveluation. At this point of time patient cannot be safely discharged to follow as an outpatient basis. Continue cefepime and Azithromycin pending culture results. Continue oxygen supplementation to maintain O2 saturation goal of 90% and above currently discussed with the saturating 90% and above. Trelegy 100 inhaler along with albuterol/DuoNebs 4 times daily. Refusing nebulization treatments Incentive spirometry and flutter valve. Not compliant with flutter valve. Advised to be more compliant. # Thank you for involving pulmonary in this patient care. Will continue to follow.
--- NOTE | 2024-01-14 10:32 | SW/DCPLANNER ---
I spoke w/ this patient regarding plans once medically stable for discharge. PT/OT evaluated patient and recommended home w/ home health services. Patient has refused home health services at this time. I will continue to follow up w/ this patient until medically stable for discharge. Discharge date is unknown at this time.
[2024-01-14 12:03] LABS: NT Pro Brain Natriuretic Pep. 4360 pg/mL (0-125)
--- NOTE | 2024-01-14 12:51 | P.PN_ITS ---
Subjective Subjective Date: 01/14/24 Time: 11:00 Principal diagnosis: HFrEF, CAD Interval history: This is a 68-year-old female who was admitted to the hospital with shortness of breath and increasing oxygen demands. The patient has known lung cancer which appears to have caused an occlusion and narrowing in the right lung. She is also currently being treated for pneumonia in her right lung as well. She did get profoundly anemic during her hospitalization with a hemoglobin of 5.5 and was transfused with packed red blood cells. She is Hemoccult positive and will need to undergo EGD once she has improved from her pneumonia and anemia. Repeat BNP today shows that it is up to 4360 so she is likely have a worsening of her acute on chronic HFrEF. During the night last night she did require more oxygen with a Ventimask. Today she is back on nasal cannula at 6 L/min. She states that her shortness of breath was pretty severe last night but it is much better this morning. She still states that she has a cough and orthopnea associated with her shortness of breath. She states any amount of exertion causes severe shortness of breath. It improves with rest but does not completely resolve. She denies any chest pain or pressure today. She states that her chest pain occurs intermittently. She denies any lower extremity edema. She denies any fever, chills, nausea, vomiting or diarrhea. Exam Data for Last 24 hours Vital signs and Labs for Last 24 Hours: Temp Pulse Resp BP Pulse Ox O2 Del Method O2 Flow Rate 98.1 F 80 19 123/69 90 L Nasal Cannula 6 01/14/24 11:54 01/14/24 12:00 01/14/24 11:54 01/14/24 11:54 01/14/24 11:54 01/14/24 11:54 01/14/24 11:54 FiO2 50 01/14/24 06:55 Laboratory Results - last 24 hr 01/13/24 21:53: Stool Occult Blood Positive A 01/14/24 05:40: WBC 18.9 H, RBC 3.79 L, Hgb 9.4 L, Hct 30.7 L, MCV 81.0, MCH 24.8 L, MCHC 30.6 L, RDW 21.3 H, Plt Count 650 H, MPV 7.1 L, Neut % (Auto) 90.2 H, Lymph % (Auto) 3.4 L, [place] % (Auto) 5.8, Eos % (Auto) 0.5, Baso % (Auto) 0.2, Neut # (Auto) 17.0 H, Lymph # (Auto) 0.6 L, [place] # (Auto) 1.1 H, Eos # (Auto) 0.1, Baso # (Auto) 0.0, Total Counted 100, Neutrophils % (Manual) 97 H, Lymphocytes % (Manual) 1 L, Monocytes % (Manual) 2, Platelet Estimate Moderate increase, RBC Morphology Normal, Sodium 134 L, Potassium 3.9, Chloride 94 L, Carbon Dioxide 39 H, Anion Gap 4.9 L, BUN 12 D, Creatinine 0.30 L, Estimated Creat Clear 32, Estimated GFR 222, Est GFR ( Amer) 268, Glucose 120 H, Calcium 8.2 L, Total Bilirubin 0.7, AST 20, ALT 12, Alkaline Phosphatase 112, NT-Pro-B Natriuret Pep 4360 H, Total Protein 5.3 L, Albumin 2.4 L, Globulin 2.9, Albumin/Globulin Ratio 0.8 L I & O for Last 24 hours: Intake & Output 01/11/24 01/12/24 01/13/24 01/14/24 23:59 23:59 23:59 23:59 Intake Total 1645 / 1935 1025 / 1025 Output Total 0 / 0 600 / 600 150 / 150 Balance 1645 / 1935 425 / 425 -150 / -150 Weight 82 lb 81 lb 15.839 oz 80 lb 82 lb Microbiology Reports for the Last 24 Hours: Microbiology 01/11/24 07:25 Sputum - Expectorated Sputum Gram Stain - Final 01/11/24 07:25 Sputum - Expectorated Sputum Sputum Culture - Preliminary 01/11/24 18:55 Blood Blood Culture - Preliminary NO GROWTH AFTER 48 HOURS 01/11/24 18:52 Blood Blood Culture - Preliminary NO GROWTH AFTER 48 HOURS 01/12/24 03:06 Nose MRSA Culture - Final Negative 01/11/24 16:42 Urine,Clean Catch Urine Culture - Final Multiple organisms, suggests contamination. Constitutional Constitutional: no acute distress, thin and chronically ill appearing *Routine HEENT Exam Head: Present normocephalic and atraumatic ENT: Present mucous membranes moist *Routine Neck Exam Neck: Present supple, full ROM and normal carotid upstroke; Absent JVD, carotid bruit or lymphadenopathy *Routine Respiratory Exam Respiratory: Present CTA bilaterally, normal respiratory effort, able to speak in complete sentences and symmetric chest movement *Routine Cardiovascular Exam Cardiovascular: Present RRR, Normal S1, Normal S2 and murmur; Absent gallop *Routine Abdominal Exam Abdominal: Present soft and normoactive bowel sounds; Absent tenderness, distended or organomegaly *Routine Extremities Exam Extremities: Present full ROM, pulses intact and normal capillary refill; Absent cyanosis, clubbing or edema *Routine Skin Exam Skin: Present intact and warm; Absent erythema *Routine Neurological Exam Neurological: Present alert, oriented X3 and CN II-XII intact; Absent sensory deficit or motor deficit Routine Psychiatric Exam Psychiatric: Present normal affect Progress Note: A&P Assessment and plan (1) Acute on chronic HFrEF (heart failure with reduced ejection fraction): Status: Acute (2) Bilateral pneumonia: Status: Acute (3) Lung collapse: Status: Acute (4) Acute on chronic hypoxic respiratory failure: Status: Acute (5) Iron deficiency anemia: Status: Acute (6) Abnormal cardiovascular stress test: Status: Acute (7) Stenosis of carotid artery: Status: Acute (8) Pulmonary emphysema: Status: Acute (9) CAD (coronary atherosclerotic disease): Status: Acute (10) Primary lung cancer: Status: Acute (11) Paroxysmal atrial fibrillation: Status: Acute (12) Sepsis: Status: Acute (13) GI bleed: Status: Acute Assessment and Plan Assessment and Plan for All Diagnoses:: Plan: 1. The patient was admitted to the hospital with worsening shortness of breath and increasing oxygen requirements. The patient was found to have a right lower lobe pneumonia. She also has consolidation in the right middle lobe consistent with atelectasis. The patient does have malignancy noted to her right lung with obstruction in the right upper lower lobe and right upper lobe narrowing. The patient is currently undergoing radiation treatments for her lung cancer but has historically refused chemotherapy. She has been treated with IV antibiotics. She will be transferred to a tertiary care facility due to increasing oxygen demands. 2. Through the night last night the patient did have desaturations and had to be switched to a Ventimask. She is back on 6 L nasal cannula this morning. She is still significantly short of breath. A BNP was repeated this morning and her BNP is up to 4360 from 1250 at admission. The patient needs more aggressive diuresis as this may have been contributing to her increasing oxygen demands. She needs more aggressive diuresis. Will change her Lasix to Lasix 60 mg IV twice daily. 3. Start spironolactone 50 mg daily for diuresis as well. 4. The patient's blood pressure has been on the lower side. If she does become hypotensive then we may need to consider Levophed drip. 5. The patient was anemic during this hospitalization with a hemoglobin of 5.5. She did undergo transfusions and her hemoglobin is up to 9.4 today. GI was consulted because of her anemia. She is Hemoccult positive. The patient will need an EGD once she has improved from her pneumonia and anemia. 6. Her hemoglobin is currently stable despite her GI bleed. Continue Eliquis and Plavix at this time. 7. The patient does have a history of coronary artery disease. She does have an abnormal stress test with in-stent restenosis noted on a recent cath to her right coronary artery. Once the patient has an EGD and has improved from her pneumonia and anemia then she will need left cardiac catheterization with possible stenting to the right coronary artery. Continue Plavix. 8. Her LDL goal is less than 55. Her LDL is 58. She is on a statin. 9. The patient does have paroxysmal atrial fibrillation. Continue amiodarone. She is on long-term anticoagulation with Eliquis. 10. Repeat a BMP in the morning. 11. Further recommendations will be made pending the patient's response to treatment. She is currently awaiting transfer. Thank you for the opportunity to have participate in the care of this patient. All recommendations and orders are per Dr. Prather.
[2024-01-14] MEDS: MEROPENEM 1 GM in 0.9 % SODIUM CHLORIDE 100 ML IV (13:48)
[2024-01-14] MEDS: NOREPINEPHRINE BITARTRATE/D5W 8 MG/250 ML PLAST..BAG 3.75 MG IV (13:48)
[2024-01-14] MEDS: FUROSEMIDE 40MG/4ML VIAL 60 MG IV (13:49)
[2024-01-14] MEDS: SPIRONOLACTONE 25MG TABLET 50 MG PO (13:49)
--- NOTE | 2024-01-14 15:03 | PC.NURSE ---
Addendum entered by Kiersten Hassan RN 01/14/24 18:19: PT WAS PUT ON CPAP AT 1653. [facility] CALLED AT 1800 FOR UPDATE AND STATED THEIR ICU PROVIDER WANTED PT INTUBATED BEFORE TRANSFER AND THEY WANTED STAFF TO CALL BACK WHEN INTUBATION IS COMPLETE AND TO GIVE VENT SETTINGS. Addendum entered by Kiersten Hassan RN 01/14/24 16:13: UPDATED DAUGHTER OVER THE PHONE. DAUGHTER STATED SHE WOULD BE HERE AROUND 1800. Addendum entered by Kiersten Hassan RN 01/14/24 16:01: O2 SATURATION WAS MAINTAINING 85%. PT WAS SWITCHED FROM 6 L NC TO 50% VENTI MASK. BP 94/55. LEVOPHED DRIP @ 4MCG/MIN. HR 82. RESPIRATIONS 30/MIN. HOSPITALIST NOTIFIED. Original Note: AT 1315 PT WAS SITTING UP IN THE CHAIR ALERT AND ORIENTED X4. BP CHECKED WAS 81/52. NOTIFIED CARDIOLOGY AND THEY STATED TO GO ON AND GIVE ORDERED IV LASIX AND ALDACTONE. IF PT CONTINUES TO BE HYPOTENSIVE WE WILL START DRIP. NOTIFIED HOSPITALIST AND MANUAL BP WAS RECHECKED AND WAS 90/38. PT WAS TRANSFERRED TO STEP DOWN AND LEVOPHED DRIP WAS ORDERED AND STARTED AT 4MCG/MIN. TITRATED TO MAINTAIN SYSTOLIC >90. PT REFUSED LION AND PURWICK FOR NOW AND WANTS TO CONTINUE TO GET OOB TO [facility] IF POSSIBLE. O2 SATURATION HAS MAINTAINED 90% ON 6 L NC. PT STATED SHE UNDERSTANDS IF SHE DESATS SHE WOULD NEED TO GO BACK ON THE 50% VENTI MASK. WILL CONTINUE TO MONITOR.
[2024-01-14] MEDS: METHYLPREDNISOLONE SOD SUCC 40MG VIAL 40 MG IV (15:39)
[2024-01-14 15:42] LABS: ABG Base Excess 16.3 mmol/L (-2.4-2.3); ABG HCO3 39.4 mmhg (22.0-26.0); ABG Oxygen Saturation 87 % (90-100); ABG PH 7.51 mmol/L (7.35-7.45); ABG TCO2 40.9 mmhg (23-27)
[2024-01-14 15:44] LABS: Allen's Test Acceptable; Oxygen 6L %; Source Right Brachial
[2024-01-14 15:46] LABS: ABG PCO2 50.7 mmhg (35.0-45.0); ABG PO2 48.5 mmhg (80-100)
[2024-01-14] MEDS: acetaZOLAMIDE 250 MG TABLET PO (16:48)
[2024-01-14] MEDS: propofoL 100 ML 2.23 MG IV (19:00)
[2024-01-14] MEDS: ETOMIDATE 40MG/20ML VIAL 11 MG IV (19:24)
[2024-01-14] MEDS: SUCCINYLCHOLINE 20MG/ML 10 ML MDV 35 MG IV (19:25)
--- NOTE | 2024-01-14 19:29 | XR_ITS ---
PROCEDURE INFORMATION: Exam: XR Chest Exam date and time: 01/14/2024 7:27 PM Age: 68 years old Clinical indication: Device placement; Other: Intubation, og tube TECHNIQUE: Imaging protocol: Radiologic exam of the chest. Views: 1 view. COMPARISON: 1. CR XR CHEST PORTABLE 01/14/2024 6:06 AM 2. CR XR CHEST PORTABLE 01/11/2024 5:47 PM 3. CR XR CHEST 2V 04/24/2023 4:[address] ANGIO CHEST PE PROTOCOL 10/27/2023 5:52 PM FINDINGS: Tubes, catheters and devices: Interval ETT placement 11 mm above the neeraj NG tube placement extending to the proximal body of the stomach. Lungs: Stable prominence of the left hilar region with associated bandlike densities extending laterally from this region. Mixed airspace and interstitial opacities in the right mid and lower lung balder[place] compatible with extensive pneumonia redemonstrated. Associated small right pleural effusion. Chronic interstitial changes redemonstrated. Pleural spaces: See Lungs finding. Heart/Mediastinum: Unremarkable. No cardiomegaly. Bones/joints: Unremarkable. IMPRESSION: 1. ET and NG tube placement. 2. Extensive pneumonic infiltrates in the right mid and lower lung balderas and associated small right effusion redemonstrated. Chronic changes on the left. Advise progress chest x-rays to ensure resolution of the right-sided findings.
--- NOTE | 2024-01-14 19:33 | EXP.DC.SUM ---
General Admission date:: 01/11/24 HPI HPI HPI: Hardik Melo is a 68-year-old female with a medical history significant for right lung cancer (undergoing radiation therapy at [facility]), left lung cancer in remission, current tobacco smoker, CAD s/p 2 stents, A-fib (on Eliquis) who presents after her PCP notified her of low iron levels and to go to the ED. However, patient states she has been having somewhat increased shortness of breath over the past week with increase in oxygen requirements from 2.5 L to 4 L at night. She also notes chronic productive cough that is slightly worse recently. Denies fever/chills, chest pain, abdominal pain, urinary symptoms, constipation/diarrhea. Workup in the ED significant for WBC 27.6, hemoglobin 7.2, MCV 70.4, sodium 128. Respiratory panel normal. CXR suggestive of severe right lower lobe pneumonia, chest CTA suggestive of the same as well as obstruction of right lower lobe bronchus and severe narrowing of the right upper lobe bronchus. Case was discussed with ED provider and decision was made to admit patient for sepsis secondary to community-acquired pneumonia. 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 However, patient states she has been having somewhat increased shortness of breath over the past week with increase in oxygen requirements from 2.5 L to 4 L at night. She also notes chronic productive cough that is slightly worse recently. Denies fever/chills, chest pain, abdominal pain, urinary symptoms, constipation/diarrhea. Workup in the ED significant for WBC 27.6, hemoglobin 7.2, MCV 70.4, sodium 128. Respiratory panel normal. CXR suggestive of severe right lower lobe pneumonia, chest CTA suggestive of the same as well as obstruction of right lower lobe bronchus and severe narrowing of the right upper lobe bronchus. Case was discussed with ED provider and decision was made to admit patient for sepsis secondary to community-acquired pneumonia. #Acute on chronic hypoxic respiratory failure #Severe right lower lobe pneumonia #Septic shock #Squamous cell carcinoma of right lung #Complete collapse of right middle lobe #Right lower lobe bronchus obstruction #Right upper lobe bronchus severe narrowing ? Right lung cancer undergoing radiation therapy at [facility] s/p ~30 rounds of radiation. ? History of left lung cancer in remission after ~30 rounds of radiation therapy. ? Bronchus abnormalities found on CTA chest. ? CXR, CTA chest suggestive of severe right lower lobe pneumonia in the setting of lung cancer. ? Increase in home oxygen from 2.5 L to 4 L. Patient however does not look toxic appearing. - Pulmonology consulted, assisted management of care. ? Transitioned to meropenem from cefepime today with increasing oxygen requirements to 6 L nasal cannula, worsening pneumonia on CXR. Continue azithromycin day 4. Vanc discontinued per pulmonology. MRSA screen negative. ? IV fluid resuscitation withheld due to concerns of heart failure exacerbation, see separate problem. - WBC continues to be plauteaued at 18 today. Initially 27.6 on admission. ? Initiated on Levophed given soft pressures, currently on 10 mcg in the setting of propofol and fentanyl. MAP goal >65, currently at goal. ? ABG today pH 7.51, pCO2 50.7, pO2 48.5, bicarb 39.4, O2 saturation 87%. This was on 6 L nasal cannula. ? Blood cultures NGTD 48 hours. ? Sputum cultures pending. Gram stain shows moderate Gram Positive Diplococci, Moderate Gram Positive Cocci in Clusters, Few Gram Positive Cocci in Chains. ? Given increase in oxygen requirements, tachypnea in 30s to 40s, and softer blood pressures in the setting of right-sided lung cancer decision I had discussion with ammonia refrigeration technician and we have concerns for endobronchial malignancy/radiation-induced fibrosis for which patient either needs endobronchial stenting/cryoablation of the endobronchial cancer at this point of time. Reached out to who was graciously accepted patient into their MICU by Dr. Schrader. ? Currently intubated and sedated on propofol and fentanyl. Current vent settings tidal volume 380, respiratory rate 18, PEEP 8, FiO2 50%. Repeat ABG pending at this time. Saturating 97% on pulse oximetry. #Acute on chronic HFmrEF #CAD s/p 2 stents #History of left subclavian artery stenosis #History of medical nonadherence ? Several week worsening of lower extremity edema. Initial BNP 1250. ? ECHO 12/10/2023 LVEF 45%, severe hypokinesis of the basal septal, inferior septal, and anteroseptal LV chino. ? Evaluated by cardiology outpatient, has a known RCA in-stent restenosis. Planned for outpatient LHC and left subclavian angiogram with history of left subclavian artery stenosis. ? Cardiology consulted, repeat BNP in the 3999's with worsening hypoxia. Cardiology increased diuresis due to IV Lasix 60 mg twice daily today. Planned for inpatient LHC after stabilization. ? Started Plavix (allergic to aspirin), atorvastatin 40 mg. Does not appear patient has been taking these medications. Patient refuses to take either medication presumably as they make her sick. #Acute on chornic microcytic anemia ? Initial hemoglobin 7.2, MCV 70. - Hgb to 5.2 during admission, improved to 10 after 2 units pRBC. - Irons studies show significant iron defiency anema. Patient denies bloody/dark stools. - GI consulted, planned for colonoscopy once more stable. Planned to give IV iron once infection improves. #Chronic hyponatremia ? Initial sodium 128, however sodium in the past year has been high 120s, low 130s. ? This is in the setting of lung cancer which is highly suggestive of SIADH. ? Started salt tab 1000 mg daily. Na improved to 133. #COPD exacerbation #Current tobacco smoker ? DuoNebs as needed. -Given prednisone 40 mg for 2 days, Solu-Medrol 40 mg for 1 day. ? Patient is symptomatic and needs home maintenance inhaler. Pending pulmonology recommendations. ? Patient refuses nicotine patches. ? Counseled on smoke cessation, patient states she has decreased significantly and smoking to ~4 cigarettes a day. #A-fib ? Currently rate controlled. ? Resumed home amiodarone, Eliquis. Hwoever, patient is currently refusing Eliquis. - Restarted and increased home bisoprolol to 5mg after patient's HR sustained in 120-130s. Improved to 90s. #Severe protein malnutrition ? Nutrition consulted, pending recommendations. Full code DVT prophylaxis: Home Eliquis Exam Data for Last 24 hours Vital signs and Labs for Last 24 Hours: Temp Pulse Resp BP Pulse Ox O2 Del Method O2 Flow Rate 97.7 F 83 32 H 122/55 L 91 L CPAP 15 01/14/24 16:00 01/14/24 17:00 01/14/24 16:00 01/14/24 17:00 01/14/24 17:53 01/14/24 17:53 01/14/24 16:00 FiO2 50 01/14/24 17:53 Laboratory Results - last 24 hr 01/13/24 21:53: Stool Occult Blood Positive A 01/14/24 05:40: WBC 18.9 H, RBC 3.79 L, Hgb 9.4 L, Hct 30.7 L, MCV 81.0, MCH 24.8 L, MCHC 30.6 L, RDW 21.3 H, Plt Count 650 H, MPV 7.1 L, Neut % (Auto) 90.2 H, Lymph % (Auto) 3.4 L, [place] % (Auto) 5.8, Eos % (Auto) 0.5, Baso % (Auto) 0.2, Neut # (Auto) 17.0 H, Lymph # (Auto) 0.6 L, [place] # (Auto) 1.1 H, Eos # (Auto) 0.1, Baso # (Auto) 0.0, Total Counted 100, Neutrophils % (Manual) 97 H, Lymphocytes % (Manual) 1 L, Monocytes % (Manual) 2, Platelet Estimate Moderate increase, RBC Morphology Normal, Sodium 134 L, Potassium 3.9, Chloride 94 L, Carbon Dioxide 39 H, Anion Gap 4.9 L, BUN 12 D, Creatinine 0.30 L, Estimated Creat Clear 32, Estimated GFR 222, Est GFR ( Amer) 268, Glucose 120 H, Calcium 8.2 L, Total Bilirubin 0.7, AST 20, ALT 12, Alkaline Phosphatase 112, NT-Pro-B Natriuret Pep 4360 H, Total Protein 5.3 L, Albumin 2.4 L, Globulin 2.9, Albumin/Globulin Ratio 0.8 L 01/14/24 15:18: Specimen Source Right brachial, O2 % 6l, ABG pH 7.51 H, ABG pCO2 50.7 H, ABG pO2 48.5 L, ABG HCO3 39.4 H, ABG Total CO2 40.9 H, ABG O2 Saturation 87 L*, ABG Base Excess 16.3 H, Sameer Test Acceptable I & O for Last 24 hours: Intake & Output 01/11/24 01/12/24 01/13/24 01/14/24 23:59 23:59 23:59 23:59 Intake Total 1645 / 1935 1025 / 1025 441.626 / 441.626 Output Total 0 / 0 600 / 600 650 / 650 Balance 1645 / 1935 425 / 425 -208.374 / -208.374 Weight 37.195 kg 37.19 kg 36.287 kg 37.195 kg Microbiology Reports for the Last 24 Hours: Microbiology 01/11/24 07:25 Sputum - Expectorated Sputum Gram Stain - Final 01/11/24 07:25 Sputum - Expectorated Sputum Sputum Culture - Preliminary 01/11/24 18:55 Blood Blood Culture - Preliminary NO GROWTH AFTER 48 HOURS 01/11/24 18:52 Blood Blood Culture - Preliminary NO GROWTH AFTER 48 HOURS Constitutional Constitutional: no acute distress and cachectic Comments: Intubated and sedated. *Routine HEENT Exam Head: Present normocephalic Eye: Present EOMI and PERRL ENT: Present mucous membranes moist *Routine Neck Exam Neck: Present supple; Absent lymphadenopathy *Routine Respiratory Exam Respiratory: Present CTA bilaterally Comments: Decreased breath sounds right lower lung balderas. *Routine Cardiovascular Exam Cardiovascular: Present RRR *Routine Abdominal Exam Abdominal: Present soft and normoactive bowel sounds; Absent tenderness *Routine Extremities Exam Extremities: Absent cyanosis, clubbing or edema *Routine Skin Exam Skin: Present warm; Absent rash Results Data Completed and Pending Labs on day of discharge: Labs from last 24 hours 01/14/24 01/14/24 01/13/24 15:18 05:40 21:53 WBC 18.9 H RBC 3.79 L Hgb 9.4 L Hct 30.7 L MCV 81.0 MCH 24.8 L MCHC 30.6 L RDW 21.3 H Plt Count 650 H MPV 7.1 L Neut % (Auto) 90.2 H Lymph % (Auto) 3.4 L [place] % (Auto) 5.8 Eos % (Auto) 0.5 Baso % (Auto) 0.2 Neut # (Auto) 17.0 H Lymph # (Auto) 0.6 L [place] # (Auto) 1.1 H Eos # (Auto) 0.1 Baso # (Auto) 0.0 Total Counted 100 Neutrophils % (Manual) 97 H Lymphocytes % (Manual) 1 L Monocytes % (Manual) 2 Platelet Estimate Moderate increase RBC Morphology Normal Specimen Source Right brachial O2 % 6l ABG pH 7.51 H ABG pCO2 50.7 H ABG pO2 48.5 L ABG HCO3 39.4 H ABG Total CO2 40.9 H ABG O2 Saturation 87 L* ABG Base Excess 16.3 H Sameer Test Acceptable Sodium 134 L Potassium 3.9 Chloride 94 L Carbon Dioxide 39 H Anion Gap 4.9 L BUN 12 D Creatinine 0.30 L Estimated Creat Clear 32 Estimated GFR 222 Est GFR ( Amer) 268 Glucose 120 H Calcium 8.2 L Total Bilirubin 0.7 AST 20 ALT 12 Alkaline Phosphatase 112 NT-Pro-B Natriuret Pep 4360 H Total Protein 5.3 L Albumin 2.4 L Globulin 2.9 Albumin/Globulin Ratio 0.8 L Stool Occult Blood Positive A Preliminary micro results at discharge 01/11/24 07:25 Sputum Culture - Preliminary Sputum - Expectorated Sputum 01/11/24 18:55 Blood Culture - Preliminary Blood NO GROWTH AFTER 48 HOURS 01/11/24 18:52 Blood Culture - Preliminary Blood NO GROWTH AFTER 48 HOURS DS: Diagnosis Discharge Diagnosis (1) Acute on chronic HFrEF (heart failure with reduced ejection fraction): Status: Acute Code(s): I50.23 - Acute on chronic systolic (congestive) heart failure (2) Bilateral pneumonia: Status: Acute Code(s): J18.9 - Pneumonia, unspecified organism Qualifiers: Pneumonia type: due to unspecified organism (3) Lung collapse: Status: Acute Code(s): J98.19 - Other pulmonary collapse (4) Acute on chronic hypoxic respiratory failure: Status: Acute Code(s): J96.21 - Acute and chronic respiratory failure with hypoxia (5) Iron deficiency anemia: Status: Acute Code(s): D50.9 - Iron deficiency anemia, unspecified Qualifiers: Iron deficiency anemia type: unspecified iron deficiency Qualified Code(s): D50.9 - Iron deficiency anemia, unspecified (6) Abnormal cardiovascular stress test: Status: Acute Code(s): R94.39 - Abnormal result of other cardiovascular function study (7) Stenosis of carotid artery: Status: Acute Code(s): I65.29 - Occlusion and stenosis of unspecified carotid artery Qualifiers: Laterality: unspecified laterality Qualified Code(s): I65.29 - Occlusion and stenosis of unspecified carotid artery (8) Pulmonary emphysema: Status: Acute Code(s): J43.9 - Emphysema, unspecified Qualifiers: Emphysema type: centrilobular Qualified Code(s): J43.2 - Centrilobular emphysema (9) CAD (coronary atherosclerotic disease): Status: Acute Code(s): I25.10 - Atherosclerotic heart disease of [place] coronary artery without angina pectoris Qualifiers: Coronary Disease-Associated Artery/Lesion type: [place] artery [place] vs. transplanted heart: [place] heart Associated angina: without angina Qualified Code(s): I25.10 - Atherosclerotic heart disease of [place] coronary artery without angina pectoris (10) Primary lung cancer: Status: Acute Code(s): C34.90 - Malignant neoplasm of unspecified part of unspecified bronchus or lung Qualifiers: Laterality: right Qualified Code(s): C34.91 - Malignant neoplasm of unspecified part of right bronchus or lung (11) Paroxysmal atrial fibrillation: Status: Acute Code(s): I48.0 - Paroxysmal atrial fibrillation (12) Sepsis: Status: Acute Code(s): A41.9 - Sepsis, unspecified organism (13) GI bleed: Status: Acute Code(s): K92.2 - Gastrointestinal hemorrhage, unspecified Meds Home Medications and Allergies Home Medications ?Medication ?Instructions ?Recorded ?Confirmed ?Type apixaban 5 mg tablet (Eliquis) 5 mg PO BID #60 tabs 12/14/23 01/12/24 Rx amiodarone 200 mg tablet 200 mg PO DAILY 12/21/23 01/12/24 History diazepam 5 mg tablet (Valium) 5 mg PO DAILYP PRN Anxiety 12/21/23 01/12/24 History oxycodone 5 mg tablet 5 mg PO BIDP PRN Pain 12/21/23 01/12/24 History albuterol sulfate 90 mcg/actuation 2 puff inhalation DAILY PRN SOB 01/11/24 01/11/24 History aerosol inhaler bisoprolol fumarate 5 mg tablet 2.5 mg PO DAILY 01/12/24 01/12/24 History furosemide 20 mg tablet 20 mg PO DAILY 01/12/24 01/12/24 History mirtazapine 15 mg tablet 15 mg PO HS 01/12/24 01/12/24 History ondansetron 4 mg disintegrating 4 mg PO QIDP PRN nausea and 01/12/24 01/12/24 History tablet vomiting prednisone 20 mg tablet 20 mg PO BID 01/12/24 01/12/24 History New Prescriptions to Start Prescriptions: Allergies Allergy/AdvReac Type Severity Reaction Status Date / Time diazepam AdvReac Severe Vomiting Verified 12/21/23 14:27 aspirin AdvReac Other Verified 12/21/23 14:27 Discharge Plan Disposition Patient Disposition: Xfer Short-Term Hosp Discharge Order Discharge Orders: Discharge Order (Routine); Ordered 01/14/24 Ordered By: Kam Drake Follow up Plan Prescriptions/Medication Reconciliation: No Action amiodarone 200 mg tablet 200 mg PO DAILY Patient Comments: TAKE 1 TABLET BY MOUTH ONCE DAILY FOR 90 DAYS diazepam [Valium] 5 mg tablet 5 mg PO DAILYP PRN (Reason: Anxiety) oxycodone 5 mg tablet 5 mg PO BIDP PRN (Reason: Pain) Patient Comments: TAKE 1 TABLET BY MOUTH 4 TIMES DAILY FOR 10 DAYS Eliquis 5 mg tablet 5 mg PO BID Qty: 60 2RF albuterol sulfate 90 mcg/actuation HFA aerosol inhaler 2 puff INHALATION DAILY PRN (Reason: SOB) ondansetron 4 mg tablet,disintegrating 4 mg PO QIDP PRN (Reason: nausea and vomiting) prednisone 20 mg tablet 20 mg PO BID Patient Comments: TAKE 1 TABLET BY MOUTH TWICE DAILY FOR 20 DAYS Rx Instructions: PATIENT STATES SHE TAKES NEEDED FOR PAIN bisoprolol fumarate 5 mg tablet 2.5 mg PO DAILY Patient Comments: TAKE 1/2 (ONE-HALF) TABLET BY MOUTH ONCE DAILY furosemide 20 mg tablet 20 mg PO DAILY Patient Comments: TAKE 1 TABLET BY MOUTH ONCE DAILY Rx Instructions: PATIENT STATES SHE TAKES NEEDED FOR LLE mirtazapine 15 mg tablet 15 mg PO HS Patient Comments: TAKE 1 TABLET BY MOUTH ONCE DAILY AT BEDTIME Problem Reconciliation Problems Reviewed?: Yes Patient Discharge Instructions Stand Alone Forms: Transfer Record Patient Instructions: DI for Pneumonia -- Adult Print Language: Yoruba Providers Primary Care Provider: Mk Reagan Admit Provider: Yariel Weir Attending Provider: Yariel Weir
[2024-01-14] MEDS: FENTANYL CITRATE/PF 1,000 MCG in 0.9 % SODIUM CHLORIDE 80 ML 1.25 MCG IV (19:40)
--- NOTE | 2024-01-14 20:09 | PC.NURSE ---
1852 ED PHYSICIAN, RT AND NURSING STAFF @ [facility] 1856 11 MG ETOMIDATE GIVEN 1857 35 MG SUCCINYLOCHOLINE GIVEN 1899 BP 115/62. 7 F ET TUBE INSERTED. BILATERAL BREATH SOUNDS CONFIRMED. 21 @ THE GUM 1902 PROPROFOL STARTED @ 10MCG/KG/MIN. FENTYNL STARTED @ 12.5 MCG/HR 1904 BP 120/78. LEVO STOPPED 1909 16 F CATHETER INSERTED 1914 PT AGITATED AND CLAMPING DOWN ON TUBE PROPROFOL TITRATED TO 20 MCG/MIN. FENTYNL TITRATED TO 25 MCG/HR 1929 BP 70/40. LEVOPHED DRIP STARTED BACK AT 14 MCG/MIN 1934 BP 106/63. GSC 12. VENT SETTINGS 100% FIO2. RATE 18. PEEP 10. TIDAL VOLUME 380. 1944 NOTIFIED [facility] TO UPDATE AND GIVE VENT SETTINGS. 1999 REPORT CALLED TO [facility]. PT WILL BE TRANSFERRED BY AMBULANCE AND WILL BE GOING TO BUILDING A, 12TH FLOOR, ROOM 224
[2024-01-14 20:22] LABS: ABG Base Excess 13.9 mmol/L (-2.4-2.3); ABG HCO3 36.4 mmhg (22.0-26.0); ABG Oxygen Saturation 98 % (90-100); ABG PCO2 43.5 mmhg (35.0-45.0); ABG PH 7.54 mmol/L (7.35-7.45); ABG PO2 94.9 mmhg (80-100); ABG TCO2 37.8 mmhg (23-27)
[2024-01-14 20:23] LABS: Allen's Test Non Applicable; Oxygen 50 %; PEEP 8; Source Left Brachial; Tidal Volume 380; Vent Rate 18
--- NOTE | 2024-01-14 20:35 | PC.NURSE ---
[facility] declined for weather. Ground transport accepted and will be on their way. Spoke to Marcy Johns
--- NOTE | 2024-01-14 20:43 | P.EN_ITS ---
<Statement entered by Kam Drake MD - 01/17/24 22:47> I personally examined patient and agree with [facility]'s plan of care. Transfer summary: Patient has been accepted at we are awaiting transport at this time ER doctor had come up and intubated the patient. Patient is resting comfortably with O2 saturation of 96% vital signs in acceptable range Vent settings at 100% FiO2 rate 18 PEEP 10 tidal volume 380. Also note that there is family in the room keeping her company exam. Patient resting comfortably breath sounds bilateral vital signs are normal skin [place] warm and dry, patient is sedated plan. At present patient condition awaiting transport to , per orders of daytime hospitalist., Nursing has been checked with been able to print off all discharge summary and orders.
--- NOTE | 2024-01-14 21:04 | PC.NURSE ---
Patient left floor with EMS at 21:03.
--- NOTE | 2024-01-14 21:32 | P.PCN_ITS ---
[facility] Procedure Note Date: 01/14/24 Time: 21:32 Procedure Note:: Procedure: Intubation Indication: Hypoxic respiratory failure RSI medications: 11 mg of etomidate, 35 mg of succinylcholine ET tube size: 7?0 Blade size: Mac 3 No bougie used Patient underwent RSI with etomidate and succinylcholine and tolerated the procedure well. She was intubated with a 7-0 ET tube that was 21 at the lips. Positive color change and bilateral breath sounds after intubation. Patient tolerated the procedure well. No complications to note.
== END 2024-01-14 21:04 | disposition short-term general hospital (02) | DRG 871 ==
LOC: ER 20:52 → 2ND 01-12 06:06
PROVIDERS: Internal Medicine Gastroenterology; Nurse Practitioner Family; Physician Assistant; Student in an Organized Health Care Education/Training Program; Admitting Provider Internal Medicine Adolescent Medicine; Emergency Provider Emergency Medicine; PCP Internal Medicine Adolescent Medicine; Visit Provider Internal Medicine Adolescent Medicine
DX: A41.9 Sepsis, unspecified organism (principal); E43 Unspecified severe protein-calorie malnutrition; I50.23 Acute on chronic systolic (congestive) heart failure; J18.9 Pneumonia, unspecified organism; J96.21 Acute and chronic respiratory failure with hypoxia; Z68.1 Body mass index [BMI] 19.9 or less, adult; C34.91 Malignant neoplasm of unspecified part of right bronchus or lung; J98.19 Other pulmonary collapse; E87.1 Hypo-osmolality and hyponatremia; J44.1 Chronic obstructive pulmonary disease with (acute) exacerbation; K92.2 Gastrointestinal hemorrhage, unspecified; I25.10 Atherosclerotic heart disease of native coronary artery without angina pectoris; I48.0 Paroxysmal atrial fibrillation; F17.210 Nicotine dependence, cigarettes, uncomplicated; Z95.5 Presence of coronary angioplasty implant and graft; I77.1 Stricture of artery; D50.9 Iron deficiency anemia, unspecified; Z79.01 Long term (current) use of anticoagulants; J43.9 Emphysema, unspecified
CPT/HCPCS: 36415; 71045; 71275; 80053; 80061; 80076; 81001; 82272; 82728; 82803; 83540; 83550; 83735; 83880; 84145; 85007; 85014; 85018; 85025; 86803; 86850; 87040; 87070; 87081; 87086; 87205; 87265; 87389; 87486; 87581; 87632; 87635; 93005; 94002; 94640; 94660; 94761; 97162; 97165; 99285; G0328; J0330; J0456; J0692; J0696; J1171; J1885; J1940; J2185; J2405; J2704; J2919; J3010; J3370; J7050; J7620; P9016; Q9967

== ENCOUNTER 2024-02-16 14:32 | Outpatient (CLI) | payer BC, SELFPAY ==
[2024-02-16 15:32] LABS: Albumin Level 3.1 g/dl (3.5-5.0); Chloride 98 mmol/L (98-107); Potassium 4.5 mmoL/L (3.5-5.1); Sodium 129 mmol/L (136-145)
[2024-02-16 15:34] LABS: Blood Urea Nitrogen 9 mg/dl (7-17); Estimated Glomerular Filt Rate 159 ml/min (>60); GFR (African American) 193 ML/MIN (>60)
[2024-02-16 15:35] LABS: Alanine Aminotransferase 11 U/L (12-78); Albumin/Globulin Ratio 1.1 (1.1-1.8); Alkaline Phosphatase 96 U/L (38-126); Anion Gap 3.5 mEq/L (5-15); Aspartate Amino Transferase 20 U/L (14-36); Bilirubin,Total 0.4 mg/dl (0.2-1.3); Calcium 8.8 mg/dl (8.4-10.2); Carbon Dioxide 32 mmol/L (22.0-30.0); Globulin 2.8 g/dL (1.3-3.2); Glucose 115 mg/dl (74-100); Total Protein,Serum 5.9 g/dl (6.3-8.2)
[2024-02-16 15:52] LABS: T4 (Thyroxine) 8.7 ug/dl (5.53-11.0)
[2024-02-16 16:06] LABS: Thyroid Stimulating Hormone 2.52 uIU/mL (0.465-4.68)
[2024-02-16 18:32] LABS: Hematocrit 27.5 % (37.0-47.0); Hemoglobin 8.3 g/dL (12.2-16.2); Mean Corpuscular HGB Conc 30.2 g/dL (31.8-35.4); Mean Corpuscular Hemoglobin 24.4 pg (27.0-31.2); Mean Corpuscular Volume 80.9 fl (81-99); Platelet Count 439 K/mm3 (142-424); Red Cell Distribution Width 22.3 % (11.5-17.5); White Blood Count 11.9 K/mm3 (4.8-10.8)
[2024-02-16 18:33] LABS: Basophils % 0.3 % (0.1-2.0); Eosinophils % 0.3 % (0.1-12.0); Lymphocytes # 0.5 K/mm3 (0.7-4.5); Lymphocytes % 3.9 % (10-50); Mean Platelet Volume 10.6 fl (7.4-10.4); Monocytes # 0.9 K/mm3 (0.1-1.0); Monocytes % 7.5 % (1.7-9.3); Neutrophils # 10.4 K/mm3 (1.8-7.8); Neutrophils % 86.9 % (37.0-80.0)
[2024-02-16 18:34] LABS: MANUAL DIFFERENTIAL MANUAL DIFFERENTIAL (MANUAL DIFF)
[2024-02-16 19:48] LABS: Hypochromasia 3+; Lymphocytes % 5 % (10-50); Monocytes % 6 % (2-9); Neutrophils % 89 % (42-76); Platelet Estimate Slight Increase; Target Cells 1+; Total Cells Counted 100
[2024-02-16 19:49] LABS: Anisocytosis 1+; Microcytosis 1+; Ovalocytes 1+; Poikilocytosis 2+
== END 2024-02-16 23:59 | disposition home or self-care (01) ==
LOC: LAB 14:35
PROVIDERS: PCP Internal Medicine Adolescent Medicine; Visit Provider Internal Medicine Medical Oncology
DX: R91.1 Solitary pulmonary nodule (principal)
CPT/HCPCS: 36415; 80050; 80053; 84436; 84443; 85007; 85025

== ENCOUNTER 2024-03-10 12:22 | Outpatient (CLI) | payer BC, SELFPAY ==
[2024-03-10 12:29] VITALS: BMI 15.0
[2024-03-10 12:49] LABS: Basophils # 0.1 K/mm3 (0-0.2); Basophils % 0.5 % (0.1-2.0); Eosinophils # 0.1 K/mm3 (0.0-0.4); Eosinophils % 0.7 % (0.1-12.0); Hemoglobin 8.9 g/dL (12.2-16.2); Lymphocytes # 0.8 K/mm3 (0.7-4.5); Lymphocytes % 6.9 % (10-50); Mean Corpuscular HGB Conc 29.7 g/dL (31.8-35.4); Mean Corpuscular Hemoglobin 23.3 pg (27.0-31.2); Mean Corpuscular Volume 78.5 fl (81-99); Mean Platelet Volume 9.2 fl (7.4-10.4); Monocytes # 0.9 K/mm3 (0.1-1.0); Neutrophils # 9.2 K/mm3 (1.8-7.8); Neutrophils % 83.2 % (37.0-80.0); Platelet Count 595 K/mm3 (142-424); Red Blood Count 3.82 M/mm3 (4.20-5.40); Red Cell Distribution Width 19.8 % (11.5-17.5)
[2024-03-10 13:10] LABS: Albumin Level 3.9 g/dl (3.5-5.0); Chloride 92 mmol/L (98-107); Potassium 3.8 mmoL/L (3.5-5.1); Sodium 135 mmol/L (136-145)
[2024-03-10 13:12] LABS: Blood Urea Nitrogen 10 mg/dl (7-17)
[2024-03-10 13:13] LABS: Alanine Aminotransferase 14 U/L (12-78); Alkaline Phosphatase 111 U/L (38-126); Anion Gap 10.8 mEq/L (5-15); Aspartate Amino Transferase 26 U/L (14-36); Bilirubin,Total 0.3 mg/dl (0.2-1.3); Calcium 9.2 mg/dl (8.4-10.2); Carbon Dioxide 36 mmol/L (22.0-30.0); Creatinine Clearance Estimated 31 mL/min (50-200); Estimated Glomerular Filt Rate 123 ml/min (>60); GFR (African American) 149 ML/MIN (>60); Globulin 3.8 g/dL (1.3-3.2); Glucose 102 mg/dl (74-100); Total Protein,Serum 7.7 g/dl (6.3-8.2)
[2024-03-10 13:43] LABS: Lactate Dehydrogenase 188 U/L (313-618)
[2024-03-10] MEDS: PEMBROLIZUMAB 200 MG in 0.9 % SODIUM CHLORIDE 50 ML 116 MG IV (13:48)
[2024-03-10] MEDS: SODIUM CHLORIDE 0.9% 50ML BAG 50 ML IV (13:49)
[2024-03-10 13:55] VITALS: BP 112/60; PULSE 101; RESP 19; O2SAT 97
[2024-03-10 14:18] LABS: Ferritin 16.2 ng/ml (11.1-264)
[2024-03-10 14:45] VITALS: BP 109/56; PULSE 99; RESP 19; O2SAT 97
[2024-03-10 14:51] LABS: Vitamin B12 475 pg/mL (239-931)
[2024-03-10 15:28] LABS: Iron 28 ug/dL (37-170)
[2024-03-10 15:40] LABS: Total Iron Binding Capacity 338 ug/dL (265-497)
[2024-03-11 12:17] LABS: Haptoglobin 371 mg/dL (37-355)
--- NOTE | 2024-03-11 15:15 | DIET.NUTRFU ---
left voicemail with contact information for any dietary concerns
--- NOTE | 2024-03-14 13:32 | PC.NURSE ---
rn called to check on pt post first chemotherapy dose;pt states she is feeling good not problems at this time.
== END 2024-03-10 14:45 | disposition home or self-care (01) ==
LOC: INF 12:23
PROVIDERS: PCP Internal Medicine Adolescent Medicine; Visit Provider Internal Medicine Medical Oncology
DX: Z51.11 Encounter for antineoplastic chemotherapy (principal); C34.90 Malignant neoplasm of unspecified part of unspecified bronchus or lung
CPT/HCPCS: 80053; 82533; 82607; 82728; 82746; 83010; 83540; 83550; 83615; 85025; 85044; 86880; 96413; J9271

== ENCOUNTER 2024-03-24 13:58 | Outpatient (CLI) | payer BC, OTHER, SELFPAY ==
[2024-03-24 14:26] VITALS: BP 107/59; PULSE 87; RESP 18; TEMP 36.9; O2SAT 100
[2024-03-24] MEDS: IRON SUCROSE COMPLEX 200 MG in 0.9 % SODIUM CHLORIDE 100 ML 220 MG IV (14:26)
[2024-03-24] MEDS: SODIUM CHLORIDE 0.9% 50ML BAG 50 ML IV (14:26)
[2024-03-24] MEDS: SODIUM CHLORIDE 0.9% 10ML FLUSH SYRINGE 10 ML IV (14:26)
[2024-03-24 15:05] VITALS: BP 110/62; PULSE 85; RESP 18; TEMP 36.9; O2SAT 98
== END 2024-03-24 15:10 | disposition home or self-care (01) ==
LOC: INF 14:04
PROVIDERS: PCP Internal Medicine Adolescent Medicine; Visit Provider Internal Medicine Medical Oncology
DX: D50.9 Iron deficiency anemia, unspecified (principal)
CPT/HCPCS: 96365; J1756

== ENCOUNTER 2024-03-29 12:59 | Outpatient (CLI) | payer BC, OTHER, SELFPAY ==
[2024-03-29 13:05] VITALS: BMI 15.0
[2024-03-29 13:26] LABS: Basophils # 0.1 K/mm3 (0-0.2); Basophils % 0.5 % (0.1-2.0); Eosinophils # 0.1 K/mm3 (0.0-0.4); Eosinophils % 1.1 % (0.1-12.0); Hematocrit 27.7 % (37.0-47.0); Hemoglobin 8.1 g/dL (12.2-16.2); Lymphocytes # 0.9 K/mm3 (0.7-4.5); Lymphocytes % 8.3 % (10-50); Mean Corpuscular HGB Conc 29.2 g/dL (31.8-35.4); Mean Corpuscular Hemoglobin 22.8 pg (27.0-31.2); Mean Corpuscular Volume 77.8 fl (81-99); Mean Platelet Volume 9.8 fl (7.4-10.4); Monocytes # 0.7 K/mm3 (0.1-1.0); Monocytes % 6.2 % (1.7-9.3); Neutrophils # 9.1 K/mm3 (1.8-7.8); Platelet Count 455 K/mm3 (142-424); Red Blood Count 3.56 M/mm3 (4.20-5.40); Red Cell Distribution Width 18.6 % (11.5-17.5)
[2024-03-29 13:39] LABS: Alanine Aminotransferase 18 U/L (12-78); Albumin Level 3.5 g/dl (3.5-5.0); Albumin/Globulin Ratio 1.1 (1.1-1.8); Alkaline Phosphatase 105 U/L (38-126); Anion Gap 11.5 mEq/L (5-15); Aspartate Amino Transferase 26 U/L (14-36); Blood Urea Nitrogen 10 mg/dl (7-17); Calcium 8.4 mg/dl (8.4-10.2); Carbon Dioxide 27 mmol/L (22.0-30.0); Chloride 100 mmol/L (98-107); Creatinine Clearance Estimated 31 mL/min (50-200); Estimated Glomerular Filt Rate 222 ml/min (>60); GFR (African American) 268 ML/MIN (>60); Globulin 3.2 g/dL (1.3-3.2); Glucose 189 mg/dl (74-100); Potassium 3.5 mmoL/L (3.5-5.1); Sodium 135 mmol/L (136-145); Total Protein,Serum 6.7 g/dl (6.3-8.2)
[2024-03-29 13:44] LABS: Bilirubin,Total < 0.1 mg/dl (0.2-1.3)
[2024-03-29 14:10] LABS: Thyroid Stimulating Hormone 2.24 uIU/mL (0.465-4.68)
[2024-03-29] MEDS: IRON SUCROSE COMPLEX 200 MG in 0.9 % SODIUM CHLORIDE 100 ML 220 MG IV (14:12)
[2024-03-29] MEDS: SODIUM CHLORIDE 0.9% 50ML BAG 50 ML IV (14:22)
[2024-03-29] MEDS: SODIUM CHLORIDE 0.9% 10ML FLUSH SYRINGE 10 ML IV (14:24)
[2024-03-29 14:30] VITALS: BP 115/68; PULSE 105; RESP 18; TEMP 36.8; O2SAT 94
[2024-03-29 15:00] VITALS: BP 133/68; PULSE 103; O2SAT 94
== END 2024-03-29 15:08 | disposition home or self-care (01) ==
PROVIDERS: PCP Internal Medicine Adolescent Medicine; Visit Provider Internal Medicine Medical Oncology
DX: C34.12 Malignant neoplasm of upper lobe, left bronchus or lung (principal)
CPT/HCPCS: 80053; 82533; 84443; 85025; 96365; J1756

== ENCOUNTER 2024-04-05 13:06 | Outpatient (CLI) | payer BC, OTHER, SELFPAY ==
[2024-04-05 13:30] VITALS: BP 130/68; PULSE 72; RESP 18; TEMP 36.7; O2SAT 95
[2024-04-05] MEDS: IRON SUCROSE COMPLEX 200 MG in 0.9 % SODIUM CHLORIDE 100 ML 220 MG IV (13:30)
[2024-04-05] MEDS: SODIUM CHLORIDE 0.9% 10ML FLUSH SYRINGE 10 ML IV (13:30)
[2024-04-05] MEDS: SODIUM CHLORIDE 0.9% 50ML BAG 50 ML IV (13:30)
[2024-04-05 14:00] VITALS: BP 105/53; PULSE 85
== END 2024-04-05 14:10 | disposition home or self-care (01) ==
LOC: INF 13:07
PROVIDERS: PCP Internal Medicine Adolescent Medicine; Visit Provider Internal Medicine Medical Oncology
DX: D50.9 Iron deficiency anemia, unspecified (principal)
CPT/HCPCS: 96365; J1756

== ENCOUNTER 2024-04-06 13:04 | Outpatient (CLI) | payer BC, OTHER, SELFPAY ==
[2024-04-06] MEDS: SODIUM CHLORIDE 0.9% 50ML BAG 50 ML IV (13:29)
[2024-04-06] MEDS: PEMBROLIZUMAB 200 MG in 0.9 % SODIUM CHLORIDE 50 ML 116 MG IV (13:30)
[2024-04-06 13:35] VITALS: BP 133/68; PULSE 98; RESP 18; TEMP 37.2; O2SAT 98
[2024-04-06 14:10] VITALS: BP 132/63; PULSE 100
== END 2024-04-06 14:27 | disposition home or self-care (01) ==
LOC: INF 13:05
PROVIDERS: PCP Internal Medicine Adolescent Medicine; Visit Provider Internal Medicine Medical Oncology
DX: Z51.11 Encounter for antineoplastic chemotherapy (principal); C34.90 Malignant neoplasm of unspecified part of unspecified bronchus or lung
CPT/HCPCS: 96413; J9271

== ENCOUNTER 2024-04-29 13:03 | Outpatient (CLI) | payer BC, OTHER, SELFPAY ==
[2024-04-29 13:16] VITALS: BMI 15.0
[2024-04-29 13:48] LABS: Basophils % 0.2 % (0.1-2.0); Eosinophils # 0.1 K/mm3 (0.0-0.4); Hematocrit 34.2 % (37.0-47.0); Hemoglobin 10.5 g/dL (12.2-16.2); Lymphocytes # 0.9 K/mm3 (0.7-4.5); Lymphocytes % 10.2 % (10-50); Mean Corpuscular HGB Conc 30.7 g/dL (31.8-35.4); Mean Corpuscular Hemoglobin 23.8 pg (27.0-31.2); Mean Corpuscular Volume 77.4 fl (81-99); Mean Platelet Volume 9.9 fl (7.4-10.4); Monocytes # 0.8 K/mm3 (0.1-1.0); Monocytes % 9.4 % (1.7-9.3); Neutrophils # 6.8 K/mm3 (1.8-7.8); Neutrophils % 78.7 % (37.0-80.0); Platelet Count 378 K/mm3 (142-424); Red Blood Count 4.42 M/mm3 (4.20-5.40); Red Cell Distribution Width 18.7 % (11.5-17.5); White Blood Count 8.7 K/mm3 (4.8-10.8)
[2024-04-29 13:53] LABS: Alanine Aminotransferase 20 U/L (12-78); Albumin Level 3.9 g/dl (3.5-5.0); Albumin/Globulin Ratio 1.1 (1.1-1.8); Alkaline Phosphatase 91 U/L (38-126); Anion Gap 7.6 mEq/L (5-15); Aspartate Amino Transferase 45 U/L (14-36); Blood Urea Nitrogen 7 mg/dl (7-17); Calcium 8.8 mg/dl (8.4-10.2); Carbon Dioxide 33 mmol/L (22.0-30.0); Chloride 95 mmol/L (98-107); Creatinine Clearance Estimated 31 mL/min (50-200); Estimated Glomerular Filt Rate 222 ml/min (>60); GFR (African American) 268 ML/MIN (>60); Globulin 3.5 g/dL (1.3-3.2); Glucose 96 mg/dl (74-100); Potassium 3.6 mmoL/L (3.5-5.1); Sodium 132 mmol/L (136-145); Total Protein,Serum 7.4 g/dl (6.3-8.2)
[2024-04-29 13:56] LABS: Bilirubin,Total < 0.1 mg/dl (0.2-1.3)
[2024-04-29] MEDS: SODIUM CHLORIDE 0.9% 10ML FLUSH SYRINGE 10 ML IV (14:05)
[2024-04-29] MEDS: SODIUM CHLORIDE 0.9% 50ML BAG 50 ML IV (14:05)
[2024-04-29 14:11] VITALS: BP 127/63; PULSE 89; RESP 18; TEMP 37; O2SAT 98
[2024-04-29] MEDS: PEMBROLIZUMAB 200 MG in 0.9 % SODIUM CHLORIDE 50 ML 116 MG IV (14:11)
[2024-04-29 14:24] LABS: Thyroid Stimulating Hormone 0.95 uIU/mL (0.465-4.68)
[2024-04-29 14:55] VITALS: BP 109/54; PULSE 87; RESP 18; O2SAT 98
== END 2024-04-29 14:55 | disposition home or self-care (01) ==
LOC: INF 13:03
PROVIDERS: PCP Internal Medicine Adolescent Medicine; Visit Provider Internal Medicine Medical Oncology
DX: Z51.11 Encounter for antineoplastic chemotherapy (principal); C34.90 Malignant neoplasm of unspecified part of unspecified bronchus or lung
CPT/HCPCS: 80053; 82533; 84443; 85025; 96413; J9271

== ENCOUNTER 2024-05-05 12:46 | Outpatient (CLI) | payer BC, OTHER, SELFPAY ==
[2024-05-05 13:02] VITALS: BP 102/56; PULSE 97; RESP 16; TEMP 36.6; O2SAT 99
[2024-05-05] MEDS: IRON SUCROSE COMPLEX 200 MG in 0.9 % SODIUM CHLORIDE 100 ML 220 MG IV (13:02)
[2024-05-05] MEDS: SODIUM CHLORIDE 0.9% 10ML FLUSH SYRINGE 10 ML IV (13:02)
[2024-05-05] MEDS: SODIUM CHLORIDE 0.9% 50ML BAG 50 ML IV (13:02)
[2024-05-05 13:45] VITALS: BP 106/53; PULSE 94; RESP 18; TEMP 36.6; O2SAT 98
== END 2024-05-05 13:45 | disposition home or self-care (01) ==
LOC: INF 12:47
PROVIDERS: PCP Internal Medicine Adolescent Medicine; Visit Provider Internal Medicine Medical Oncology
DX: D50.9 Iron deficiency anemia, unspecified (principal)
CPT/HCPCS: 96365; J1756

== ENCOUNTER 2024-05-17 15:52 | Emergency (ER) | payer BC, OTHER, SELFPAY ==
[2024-05-17] VITALS (14 sets, daily range): BP systolic 75–135; BP diastolic 44–67; PULSE 100–120; RESP 12–34; TEMP 36.7–36.8; O2SAT 94–100; BMI 14.3
--- NOTE | 2024-05-17 15:54 | ED_ITS ---
<Statement entered by Iva Leonard DO - 05/17/24 23:41> I was consulted by the STEPHANIE, and we discussed the complexity of the problems being addressed. I approved the treatment and management plan for this patient's care in the emergency department, thus performing a substantive portion of the medical decision making. Iva Leonard DO Discharge Plan Disposition Patient Disposition: Home, Self-Care Condition: Good Prescriptions Prescriptions: No Action diazepam [Valium] 5 mg tablet 5 mg PO DAILYP PRN (Reason: Anxiety) oxycodone 5 mg tablet 5 mg PO BIDP PRN (Reason: Pain) Qty: 60 0RF levalbuterol HCl 0.63 mg/3 mL solution for nebulization 0.63 mg inhalation ONCE sodium chloride 3 % solution for nebulization 1 ml inhalation DIRECTED Patient Comments: USE 4 ML IN NEBULIZER TWICE DAILY ondansetron 8 mg tablet,disintegrating 8 mg PO DAILY Eliquis 5 mg tablet 5 mg PO BID Qty: 60 2RF promethazine 12.5 mg tablet 12.5 mg PO .4-6h PRN (Reason: nausea and vomiting) Qty: 30 3RF albuterol sulfate 90 mcg/actuation HFA aerosol inhaler 2 puff INHALATION DAILY PRN (Reason: SOB) ondansetron 4 mg tablet,disintegrating 4 mg PO QIDP PRN (Reason: nausea and vomiting) prednisone 20 mg tablet 20 mg PO BID Patient Comments: TAKE 1 TABLET BY MOUTH TWICE DAILY FOR 20 DAYS Rx Instructions: PATIENT STATES SHE TAKES NEEDED FOR PAIN furosemide 20 mg tablet 20 mg PO DAILY Patient Comments: TAKE 1 TABLET BY MOUTH ONCE DAILY Rx Instructions: PATIENT STATES SHE TAKES NEEDED FOR LLE mirtazapine 15 mg tablet 15 mg PO HS Patient Comments: TAKE 1 TABLET BY MOUTH ONCE DAILY AT BEDTIME Referrals Follow up/Referrals: Provider,Referral, MD [Primary Care Provider] - See instructions Activity Restrictions/Add. Instructions Additional Instructions/Restrictions: As we discussed I recommend that you follow-up with Dr. Harris sooner rather than later. I also recommend that you talk to Dr. Gu or your PCP about appetite stimulants such as Megace. If you have continued new or worsening signs or symptoms follow-up with your PCP return to the ER as needed. Clinical Impressions Clinical Impression: Chest pain Qualifiers: Chest pain type: unspecified Qualified Code(s): R07.9 - Chest pain, unspecified Print Language Print Language: Maltese Discharge ED Provider: Iva Leonard General Adult HPI <KAE Cuenca - Last Filed: 05/17/24 20:05> General Chief complaint: Chest Pain Stated complaint: chest pain Time Seen by Provider: 05/17/24 15:54 History of Present Illness HPI narrative: Patient presents for evaluation of chest pain. Patient reports that she has been having left-sided chest pain for at least 4 hours today and continues on arrival to the ER patient reports a subjective fever yesterday but did not take 1 at home denies increasing shortness of breath hemoptysis hematochezia melena nausea vomiting diarrhea.. She frequently has chest discomfort quite often due to the fact that she has advanced lung cancer. Patient most recently admitted in January 2020 for for postobstructive pneumonia and ultimately intubated and transferred to the [facility] where she underwent bronchial stenting. Patient's daughter relates that the stent is now out and previously was getting radiation and is now on Keytruda therapy. Related Data Home Medications ?Medication ?Instructions ?Recorded ?Confirmed diazepam 5 mg tablet (Valium) 5 mg PO DAILYP PRN Anxiety 12/21/23 04/29/24 albuterol sulfate 90 mcg/actuation 2 puff inhalation DAILY PRN SOB 01/11/24 04/29/24 aerosol inhaler furosemide 20 mg tablet 20 mg PO DAILY 01/12/24 04/29/24 mirtazapine 15 mg tablet 15 mg PO HS 01/12/24 04/29/24 ondansetron 4 mg disintegrating 4 mg PO QIDP PRN nausea and 01/12/24 04/29/24 tablet vomiting prednisone 20 mg tablet 20 mg PO BID 01/12/24 04/29/24 levalbuterol HCl 0.63 mg/3 mL 0.63 mg inhalation ONCE 02/16/24 04/29/24 solution for nebulization ondansetron 8 mg disintegrating 8 mg PO DAILY 02/16/24 04/29/24 tablet sodium chloride 3 % for 1 ml inhalation DIRECTED 02/16/24 04/29/24 nebulization Previous Rx's ?Medication ?Instructions ?Recorded apixaban 5 mg tablet (Eliquis) 5 mg PO BID #60 tabs 12/14/23 promethazine 12.5 mg tablet 12.5 mg PO .4-6h PRN nausea and 03/21/24 vomiting #30 tabs oxycodone 5 mg tablet 5 mg PO BIDP PRN Pain #60 tabs 04/26/24 Allergies Allergy/AdvReac Type Severity Reaction Status Date / Time diazepam AdvReac Severe Vomiting Verified 04/29/24 15:37 aspirin AdvReac Other Verified 04/29/24 15:37 [facility] <KAE Cuenca - Last Filed: 05/17/24 20:05> [facility] Disclaimer: The information contained in this section may have been updated after the patient was seen, as this information can be updated by other users. Medical History Bilateral pneumonia Dizziness Crescendo angina Headache Right middle lobe pneumonia Acute exacerbation of chronic obstructive pulmonary disease GI bleed Sepsis Acute on chronic HFrEF (heart failure with reduced ejection fraction) Iron deficiency anemia Abnormal cardiovascular stress test Paroxysmal atrial fibrillation Lung collapse Angina pectoris Acute and chronic respiratory failure with hypoxia Atrial fibrillation with RVR Primary lung cancer Acute hypoxemic respiratory failure Lung cancer Orthopnea Hemoptysis Smoking greater than 30 pack years Pulmonary emphysema History of lung cancer in adulthood Hilar lymphadenopathy Nodule of right lung Stenosis of carotid artery Cancer Migraine Heart attack NSCLC of left lung Anxiety Tooth abscess Antibiotics and diflucan for vaginitis from antibiotics. F/U with Dr Sherwood Surgical History History of bladder surgery History of heart artery stent History of hysterectomy Family History Other Cancer Heart attack Hypertension Stroke Social History (Updated 05/05/24 @ 14:28 by Patience Toussaint RN) Smoking Status: Former smoker tobacco type: cigarettes packs per day: 1 alcohol intake: never substance use type: denies use current occupational status: other Travel in the last 8 weeks: None Have you lived/traveled outside US in past 30 days?: No Contact w/someone who lives/traveled outside US past 30 days?: No Exposure to someone with infectious disease in past 14 days?: No Do you have a fever (greater than 100.4 F or 38 C)?: No Have you tested positive for COVID-19: No Exposed to someone with COVID-19 in past 14 days?: No Do you have a sore throat?: No Do you have a cough?: No Do you have any weakness?: No Do you have any diarrhea?: No Are you experiencing any unusual bleeding?: No Do you have any muscle aches/pain?: No Do you have any abdominal pain?: No Are you experiencing loss of taste or smell?: No Other Medical History Have you received the Flu Vaccine for this season: No Have you received the Pneumonia Vaccine: No <KAE Cuenca - Last Filed: 05/17/24 20:05> ROS Obtained: Yes Systems reviewed as appropriate & no additional complaints except as documented Physical Exam <KAE Cuenca - Last Filed: 05/17/24 20:05> General General appearance: alert and in no apparent distress Neck Neck exam: Present lymphadenopathy Respiratory Respiratory exam: Present wheezes (Slight end expiratory wheezes in all 4 balderas, right greater than left); Absent normal lung sounds bilaterally Cardiovascular Cardiovascular exam: Present tachycardia Neurological Exam Neurological exam: Present alert and oriented X3 Medical Decision Making <KAE Cuenca - Last Filed: 05/17/24 20:05> Medical Records Medical records reviewed: Yes I reviewed the patient's medical records. Screening: Per USPSTF and CDC recommendations, given the prevalence of disease in our region, it is our hospital?s policy to screen for HIV and viral Hepatitis for all patients aged 18 and over and those with ongoing risk factors. Shin Inquiry Pt receiving controlled substance: No Vital Signs: 05/17/24 15:58 05/17/24 16:00 05/17/24 16:02 Temperature 98.1 F Temperature Source Oral Pulse Rate 119 H 117 H Pulse Rate [Left Radial] 120 H Respiratory Rate 12 22 22 Blood Pressure 135/62 110/67 Blood Pressure [Right Arm] 110/67 Blood Pressure Mean [Right Arm] 81 02 Sat by Pulse Oximetry 98 100 99 Oxygen Delivery Method Nasal Cannula Nasal Cannula Nasal Cannula Oxygen Flow Rate (LPM) 2.5 2.5 2.5 05/17/24 16:11 05/17/24 16:12 05/17/24 16:30 Temperature Temperature Source Pulse Rate 117 H 116 H 115 H Pulse Rate [Left Radial] Respiratory Rate 28 H 27 H 22 Blood Pressure 88/59 L 109/58 L 84/60 L Blood Pressure [Right Arm] Blood Pressure Mean [Right Arm] 02 Sat by Pulse Oximetry 94 L 98 99 Oxygen Delivery Method Nasal Cannula Nasal Cannula Nasal Cannula Oxygen Flow Rate (LPM) 2.5 2.5 2.5 05/17/24 17:30 05/17/24 18:00 05/17/24 18:02 Temperature Temperature Source Pulse Rate 103 H 104 H 103 H Pulse Rate [Left Radial] Respiratory Rate 23 28 H 21 Blood Pressure 81/54 L 76/49 L 75/52 L Blood Pressure [Right Arm] Blood Pressure Mean [Right Arm] 02 Sat by Pulse Oximetry 99 99 99 Oxygen Delivery Method Nasal Cannula Nasal Cannula Nasal Cannula Oxygen Flow Rate (LPM) 2.5 2.5 2.5 05/17/24 18:09 05/17/24 18:14 05/17/24 18:28 Temperature Temperature Source Pulse Rate 101 H 102 H 105 H Pulse Rate [Left Radial] Respiratory Rate 34 H 29 H 25 H Blood Pressure 82/46 L 79/44 L 85/54 L Blood Pressure [Right Arm] Blood Pressure Mean [Right Arm] 02 Sat by Pulse Oximetry 99 99 98 Oxygen Delivery Method Nasal Cannula Nasal Cannula Nasal Cannula Oxygen Flow Rate (LPM) 2.5 2.5 2.5 05/17/24 18:35 05/17/24 18:55 Temperature 98.2 F Temperature Source Pulse Rate 100 H 107 H Pulse Rate [Left Radial] Respiratory Rate 18 20 Blood Pressure 86/53 L 86/53 L Blood Pressure [Right Arm] Blood Pressure Mean [Right Arm] 02 Sat by Pulse Oximetry 98 Oxygen Delivery Method Nasal Cannula Room Air Oxygen Flow Rate (LPM) 2.5 Lab Data Lab results reviewed: Yes I reviewed the patient's lab results. Lab Results 05/17/24 16:02: WBC 12.0 H, RBC 4.52, Hgb 10.8 L, Hct 35.3 L, MCV 78.1 L, MCH 23.9 L, MCHC 30.6 L, RDW 19.5 H, Plt Count 327, MPV 10.4, Neut % (Auto) 83.8 H, Lymph % (Auto) 5.5 L, [place] % (Auto) 9.3, Eos % (Auto) 0.7, Baso % (Auto) 0.4, N eut # (Auto) 10.0 H, Lymph # (Auto) 0.7, [place] # (Auto) 1.1 H, Eos # (Auto) 0.1, Baso # (Auto) 0.1, PT 10.6, INR 0.94, Sodium 135 L, Potassium 3.9, Chloride 98, Carbon Dioxide 34 H, Anion Gap 6.9, BUN 11, Creatinine 0.30 L, Estimated Creat Clear 30, Estimated GFR 222, Est GFR ( Amer) 268, Glucose 143 H, Calcium 9.5, Magnesium 1.5 L, Total Bilirubin < 0.1 L, AST 22, ALT 17, Alkaline Phosphatase 102, Troponin I < 0.01, NT-Pro-B Natriuret Pep 831 H, Total Protein 7.5, Albumin 4.1, Globulin 3.4 H, Albumin/Globulin Ratio 1.2, Procalcitonin 0.066 05/17/24 16:04: VBG pH 7.33, VBG pCO2 61.4 H, VBG pO2 36.0, VBG HCO3 31.9 H, VBG Total CO2 33.8 H, VBG O2 Saturation 65.6, VBG Base Excess 6.1 H, VBG Lactic Acid 1.3 05/17/24 16:11: SARS-CoV-2 (PCR) Not detected, Influenza A Untype (PCR) Not detected, Influenza Type B (PCR) Not detected 05/17/24 16:02 05/17/24 16:02 Orders (Tests/Meds): ED MEDICATIONS Discontinued Medications Generic Name Dose Route Start Last Admin Trade Name Freq PRN Reason Stop Dose Admin Acetaminophen 1,000 mg 05/17/24 16:02 05/17/24 16:18 Acetaminophen 1,000mg/100ml Vial IV 05/17/24 16:03 1,000 mg ONCE ONE Administration Sodium Chloride 1,000 mls @ 999 mls/hr 05/17/24 16:02 05/17/24 16:19 Sod Chlor 0.9% 1000ml Bag IV 05/17/24 17:02 999 mls/hr .Q1H1M ONE Administration Magnesium Sulfate 2 gm in 50 mls @ 50 mls/hr 05/17/24 16:51 05/17/24 16:53 Magnesium Sulfate 2gm/50ml Premix IV 05/17/24 17:50 50 mls/hr ONCE ONE Administration Iopamidol 70 ml 05/17/24 17:01 05/17/24 17:02 Iopamidol-370 (76%);100ml Bottle IV 05/17/24 17:02 70 ml ONCE ONE Administration Ketorolac Tromethamine 15 mg 05/17/24 16:02 05/17/24 16:18 Ketorolac 30mg/Ml Vial IV 05/17/24 16:03 15 mg ONCE ONE Administration Sodium Chloride 10 ml 05/17/24 17:01 05/17/24 17:02 Sodium Chloride 0.9% 10ml Syr (Rad Only) IV 05/17/24 17:02 10 ml ONCE ONE Administration Sodium Chloride 50 ml 05/17/24 17:01 05/17/24 17:02 0.9 % Sodium Chloride 50 Ml Vial IV 05/17/24 17:02 50 ml ONCE ONE Administration ORDERS Category Date Time Status CT angio chest PE protocol Stat Cat Scan 05/17/24 16:02 Completed BNP [NT Pro Brain Natriuretic Pep.] Stat Lab 05/17/24 16:02 Completed CBC w/Auto Diff [Complete Blood Count Auto Diff] Stat Lab 05/17/24 16:02 Completed CMP [Comprehensive Metabolic Panel] Stat Lab 05/17/24 16:02 Completed INR [Prothrombin Time INR] Stat Lab 05/17/24 16:02 Completed Magnesium Stat Lab 05/17/24 16:02 Completed Procalcitonin Stat Lab 05/17/24 16:02 Completed Rapid PCR Covid and Flu A/B Stat Lab 05/17/24 16:11 Completed Trop I [Troponin I] Stat Lab 05/17/24 16:02 Completed Troponin I Q3H Lab 05/17/24 22:15 Ordered VBG [Venous Blood Gas] Stat RT 05/17/24 16:04 Completed HEART Score History (anamnesis): Moderately suspicious ECG: Non-specific disturbance Age: >65 years Risk factors: Atherosclerosis history Medical Decision Narrative: In summary patient is a 68-year-old female who presents to the emergency department for evaluation of left-sided chest pain. Patient is initially normotensive 110/67 tachycardic at 120 sinus tachycardia the bedside monitor breathing 22 times a minute satting at 99% on room air on 2-1/2 L by nasal cannula upon arrival, afebrile at 98.1. Zickel exam is remarkable for cachectic., With a BMI of 14, 68-year-old female who otherwise does not appear to be acute distress. Auscultation the breath sounds reveals no adventitious sounds patient has no increased work of breathing or accessory muscle use. Chest pain is not reproducible on exam.. Differential diagnosis includes pneumonia versus PE versus ACS versus pleural effusion versus worsening lung cancer etc. Initial workup will be conducted with hematologic labs VBG CT PE protocol. Initial interventions include Tylenol and Toradol. Initial workup reviewed by me and patient's white count is 12.0 hemoglobin hematocrit 10.8 and 35.3 respectively absolute neutrophil count of 10.0 INR 0.94 VBG shows a pH of 7.33 pCO2 of 61.4 patient shows a sodium of 135 with a CO2 of 34 creatinine feel 0.30 glucose 143 magnesium is 1.5 which will be repleted with IV magnesium, initial troponin is less than 0.01 and given that her symptoms have been ongoing for several weeks a single troponin is sufficient, procalcitonin is 0.66 and her COVID and flu swabs are negative. My informal interpretation of her CT PE protocol does not show any evidence of thrombus and shows chronic changes with no acute infiltrates however patient does have scarring in the mid lung on the left from likely from her external beam radiation treating her lung cancer.. Upon repeat evaluation patient actually reports complete resolution of her discomfort after initial intervention. However now that patient's heart rates improved with a liter of fluid her blood pressure is a little soft but she is asymptomatic and is able to ambulate in the ER with out symptoms. Her MAP is in the 60s.. Given this I had a shared decision-making discussion with the patient regarding her BECERRIL findings and my recommendations and while I feel comfortable that we have essentially ruled out any serious or life-threatening condition including ACS unconcerned about the patient's nutrition and ability to feed herself. Patient herself via patient directed decision making and discharge feels comfortable going home with close follow-up with cardiology and her PCP or return to the ER for any worsening signs or symptoms. Thus patient is appropriate for discharge with recommendations that she follow-up with Dr. Harris as scheduled and to follow-up with her PCP for any continued new or worsening signs or symptoms or return to the ER as needed. <Iva Leonard, DO - Last Filed: 05/17/24 16:51> Vital Signs: 05/17/24 15:58 05/17/24 16:00 05/17/24 16:02 Temperature 98.1 F Temperature Source Oral Pulse Rate 119 H 117 H Pulse Rate [Left Radial] 120 H Respiratory Rate 12 22 22 Blood Pressure 135/62 110/67 Blood Pressure [Right Arm] 110/67 Blood Pressure Mean [Right Arm] 81 02 Sat by Pulse Oximetry 98 100 99 Oxygen Delivery Method Nasal Cannula Nasal Cannula Nasal Cannula Oxygen Flow Rate (LPM) 2.5 2.5 2.5 05/17/24 16:11 05/17/24 16:12 05/17/24 16:30 Temperature Temperature Source Pulse Rate 117 H 116 H 115 H Pulse Rate [Left Radial] Respiratory Rate 28 H 27 H 22 Blood Pressure 88/59 L 109/58 L 84/60 L Blood Pressure [Right Arm] Blood Pressure Mean [Right Arm] 02 Sat by Pulse Oximetry 94 L 98 99 Oxygen Delivery Method Nasal Cannula Nasal Cannula Nasal Cannula Oxygen Flow Rate (LPM) 2.5 2.5 2.5 05/17/24 17:30 05/17/24 18:00 05/17/24 18:02 Temperature Temperature Source Pulse Rate 103 H 104 H 103 H Pulse Rate [Left Radial] Respiratory Rate 23 28 H 21 Blood Pressure 81/54 L 76/49 L 75/52 L Blood Pressure [Right Arm] Blood Pressure Mean [Right Arm] 02 Sat by Pulse Oximetry 99 99 99 Oxygen Delivery Method Nasal Cannula Nasal Cannula Nasal Cannula Oxygen Flow Rate (LPM) 2.5 2.5 2.5 05/17/24 18:09 05/17/24 18:14 05/17/24 18:28 Temperature Temperature Source Pulse Rate 101 H 102 H 105 H Pulse Rate [Left Radial] Respiratory Rate 34 H 29 H 25 H Blood Pressure 82/46 L 79/44 L 85/54 L Blood Pressure [Right Arm] Blood Pressure Mean [Right Arm] 02 Sat by Pulse Oximetry 99 99 98 Oxygen Delivery Method Nasal Cannula Nasal Cannula Nasal Cannula Oxygen Flow Rate (LPM) 2.5 2.5 2.5 05/17/24 18:35 05/17/24 18:55 Temperature 98.2 F Temperature Source Pulse Rate 100 H 107 H Pulse Rate [Left Radial] Respiratory Rate 18 20 Blood Pressure 86/53 L 86/53 L Blood Pressure [Right Arm] Blood Pressure Mean [Right Arm] 02 Sat by Pulse Oximetry 98 Oxygen Delivery Method Nasal Cannula Room Air Oxygen Flow Rate (LPM) 2.5 Lab Data Lab Results 05/17/24 16:02: WBC 12.0 H, RBC 4.52, Hgb 10.8 L, Hct 35.3 L, MCV 78.1 L, MCH 23.9 L, MCHC 30.6 L, RDW 19.5 H, Plt Count 327, MPV 10.4, Neut % (Auto) 83.8 H, Lymph % (Auto) 5.5 L, [place] % (Auto) 9.3, Eos % (Auto) 0.7, Baso % (Auto) 0.4, N eut # (Auto) 10.0 H, Lymph # (Auto) 0.7, [place] # (Auto) 1.1 H, Eos # (Auto) 0.1, Baso # (Auto) 0.1, PT 10.6, INR 0.94, Sodium 135 L, Potassium 3.9, Chloride 98, Carbon Dioxide 34 H, Anion Gap 6.9, BUN 11, Creatinine 0.30 L, Estimated Creat Clear 30, Estimated GFR 222, Est GFR ( Amer) 268, Glucose 143 H, Calcium 9.5, Magnesium 1.5 L, Total Bilirubin < 0.1 L, AST 22, ALT 17, Alkaline Phosphatase 102, Troponin I < 0.01, NT-Pro-B Natriuret Pep 831 H, Total Protein 7.5, Albumin 4.1, Globulin 3.4 H, Albumin/Globulin Ratio 1.2, Procalcitonin 0.066 05/17/24 16:04: VBG pH 7.33, VBG pCO2 61.4 H, VBG pO2 36.0, VBG HCO3 31.9 H, VBG Total CO2 33.8 H, VBG O2 Saturation 65.6, VBG Base Excess 6.1 H, VBG Lactic Acid 1.3 05/17/24 16:11: SARS-CoV-2 (PCR) Not detected, Influenza A Untype (PCR) Not detected, Influenza Type B (PCR) Not detected Orders (Tests/Meds): ED MEDICATIONS Discontinued Medications Generic Name Dose Route Start Last Admin Trade Name Freq PRN Reason Stop Dose Admin Acetaminophen 1,000 mg 05/17/24 16:02 05/17/24 16:18 Acetaminophen 1,000mg/100ml Vial IV 05/17/24 16:03 1,000 mg ONCE ONE Administration Sodium Chloride 1,000 mls @ 999 mls/hr 05/17/24 16:02 05/17/24 16:19 Sod Chlor 0.9% 1000ml Bag IV 05/17/24 17:02 999 mls/hr .Q1H1M ONE Administration Magnesium Sulfate 2 gm in 50 mls @ 50 mls/hr 05/17/24 16:51 05/17/24 16:53 Magnesium Sulfate 2gm/50ml Premix IV 05/17/24 17:50 50 mls/hr ONCE ONE Administration Iopamidol 70 ml 05/17/24 17:01 05/17/24 17:02 Iopamidol-370 (76%);100ml Bottle IV 05/17/24 17:02 70 ml ONCE ONE Administration Ketorolac Tromethamine 15 mg 05/17/24 16:02 05/17/24 16:18 Ketorolac 30mg/Ml Vial IV 05/17/24 16:03 15 mg ONCE ONE Administration Sodium Chloride 10 ml 05/17/24 17:01 05/17/24 17:02 Sodium Chloride 0.9% 10ml Syr (Rad Only) IV 05/17/24 17:02 10 ml ONCE ONE Administration Sodium Chloride 50 ml 05/17/24 17:01 05/17/24 17:02 0.9 % Sodium Chloride 50 Ml Vial IV 05/17/24 17:02 50 ml ONCE ONE Administration ORDERS Category Date Time Status CT angio chest PE protocol Stat Cat Scan 05/17/24 16:02 Completed BNP [NT Pro Brain Natriuretic Pep.] Stat Lab 05/17/24 16:02 Completed CBC w/Auto Diff [Complete Blood Count Auto Diff] Stat Lab 05/17/24 16:02 Completed CMP [Comprehensive Metabolic Panel] Stat Lab 05/17/24 16:02 Completed INR [Prothrombin Time INR] Stat Lab 05/17/24 16:02 Completed Magnesium Stat Lab 05/17/24 16:02 Completed Procalcitonin Stat Lab 05/17/24 16:02 Completed Rapid PCR Covid and Flu A/B Stat Lab 05/17/24 16:11 Completed Trop I [Troponin I] Stat Lab 05/17/24 16:02 Completed Troponin I Q3H Lab 05/17/24 22:15 Ordered VBG [Venous Blood Gas] Stat RT 05/17/24 16:04 Completed ECG Data Tracing #1: I reviewed this ECG and interpreted as documented below: Sinus tachycardia with a ventricular rate of 118 bpm. Some motion artifact degrades study given work of breathing. No acute STEMI. Left axis deviation. ECG initial impression date: 05/17/24 ECG initial impression time: 15:59 Critical Care <KAE Cuenca - Last Filed: 05/17/24 20:05> Critical Care Time Critical Care Time: Yes Attestation: On 05/17/24, the high probability of a clinically significant, sudden or life threatening deterioration of the following system(s) required my full and direct attention, intervention and personal management. The time I documented below is in addition to time spent performing reported procedures but includes the following listed in this critical care notation. Total Time Total Critical Care Time: 35
--- NOTE | 2024-05-17 15:56 | ECG_ITS ---
APPROVED REPORT Exam: Resting ECG HR:118 bpm ECG Measurements Heart Rate 118 AXES AK 187 P 77 QRSd 98 QRS -56 QT 321 T 77 QTc 391 Conclusion SINUS TACHYCARDIA POSSIBLE LEFT ATRIAL ENLARGEMENT [-0.1mV P-WAVE IN V1/V2] LEFT AXIS DEVIATION [QRS AXIS < -30] ANTEROSEPTAL MYOCARDIAL INFARCTION , OF INDETERMINATE AGE [40+ ms Q WAVE IN V1-V4] ABNORMAL ECG UNCONFIRMED REPORT Electronically signed by : WISAM [email or web address], 05/18/2024 05:53:02
--- NOTE | 2024-05-17 16:02 | CT_ITS ---
PROCEDURE INFORMATION: Exam: CTA Chest With Contrast Exam date and time: 05/17/2024 4:57 PM Age: 68 years old Clinical indication: Pain; Left-sided; Additional info: Left-sided chest pain history of lung cancer TECHNIQUE: Imaging protocol: Computed tomographic angiography of the chest with contrast. Exam focused on the arteries. 3D rendering (Not supervised by radiologist): MIP and/or 3D reconstructed images were created by the technologist. Radiation optimization: All CT scans at this facility use at least one of these dose optimization techniques: automated exposure control; mA and/or kV adjustment per patient size (includes targeted exams where dose is matched to clinical indication); or iterative reconstruction. Contrast material: ISOVUE 370; Contrast volume: 70 ml; Contrast route: INTRAVENOUS (IV); COMPARISON: CT ANGIO CHEST PE PROTOCOL 01/11/2024 7:34 PM FINDINGS: Pulmonary arteries: No CT angiography evidence of pulmonary embolism. Aorta: Unremarkable. No aortic aneurysm. No aortic dissection. Lungs: There are moderate centrilobular emphysematous changes of the lungs with an apical gradient. Right upper lobe 9 mm nodule, axial image 58 new from 10/27/2023. Right lower lobe 11 mm nodule, axial image 73 improved from 10/27/2023. Left lower lobe 7 mm nodule, axial image 59, new from 10/27/2023. Dependent bilateral lung base opacities favor atelectasis. Architectural distortion and pleuroparenchymal scarring in the lungs with peribronchial thickening greatest at the left mid lung and hilum likely related to radiotherapy changes. Pleural spaces: Unremarkable. No pneumothorax. No pleural effusion. Heart: Unremarkable. No cardiomegaly. No pericardial effusion. Lymph nodes: Unremarkable. No enlarged lymph nodes. Bones/joints: Unremarkable. No acute fracture. Soft tissues: Unremarkable. IMPRESSION: 1. No CT angiography evidence of pulmonary embolism. 2. Architectural distortion and pleuroparenchymal scarring in the lungs with peribronchial thickening greatest at the left mid lung and hilum likely related to radiotherapy changes. 3. Multiple pulmonary nodules largest measuring 9 mm. For patients at low risk (minimal or absent history of smoking and of other known risk factors), recommend CT Chest at 3-6 months, then consider CT Chest at 18-24 months. For patients at high risk (history of smoking or of other known risk factors), recommend CT Chest at 3-6 months, then CT Chest at 18-24 months. (Reference: Fady) COMMENTS: The presence of pulmonary emphysema on CT is an independent risk factor for lung cancer. In the absence of a history or active diagnosis of lung cancer, it is recommended that this patient with emphysema be evaluated for enrollment in a low dose CT lung cancer screening program. REFERENCES: Fady Unger et al. Guidelines for Management of Incidental Pulmonary Nodules Detected on CT Images: From the Fleischner Society 2017. Radiology. 2017;284(1):228-243.
[2024-05-17 16:17] LABS: Coronavirus 19, PCR Not Detected (NotDetected); Influenza A, PCR Not Detected (NotDetected); Influenza B, PCR Not Detected (NotDetected)
[2024-05-17] MEDS: ACETAMINOPHEN 1,000MG/100ML VIAL 1000 MG IV (16:18)
[2024-05-17] MEDS: KETOROLAC 30MG/ML VIAL 15 MG IV (16:18)
[2024-05-17] MEDS: 0.9 % SODIUM CHLORIDE 1000ML 1,000 ML 999 ML IV (16:19)
[2024-05-17 16:21] LABS: Lactate Venous 1.3 mmol/L (0.4-2.0); VBG Base Excess 6.1 mmol/L (-2.4-2.3); VBG HCO3 31.9 mmol/L (23-30); VBG Oxygen Saturation 65.6 % (50-70); VBG PH 7.33 mmol/L (7.31-7.41); VBG Total CO2 33.8 mmol/L (23-27)
[2024-05-17 16:22] LABS: VBG PCO2 61.4 mmol/L (35-51)
[2024-05-17 16:23] LABS: Basophils # 0.1 K/mm3 (0-0.2); Basophils % 0.4 % (0.1-2.0); Eosinophils # 0.1 K/mm3 (0.0-0.4); Eosinophils % 0.7 % (0.1-12.0); Hematocrit 35.3 % (37.0-47.0); Hemoglobin 10.8 g/dL (12.2-16.2); Lymphocytes # 0.7 K/mm3 (0.7-4.5); Lymphocytes % 5.5 % (10-50); Mean Corpuscular HGB Conc 30.6 g/dL (31.8-35.4); Mean Corpuscular Hemoglobin 23.9 pg (27.0-31.2); Mean Corpuscular Volume 78.1 fl (81-99); Mean Platelet Volume 10.4 fl (7.4-10.4); Monocytes # 1.1 K/mm3 (0.1-1.0); Monocytes % 9.3 % (1.7-9.3); Neutrophils % 83.8 % (37.0-80.0); Platelet Count 327 K/mm3 (142-424); Red Blood Count 4.52 M/mm3 (4.20-5.40); Red Cell Distribution Width 19.5 % (11.5-17.5)
[2024-05-17 16:26] LABS: Albumin Level 4.1 g/dl (3.5-5.0); Chloride 98 mmol/L (98-107); Sodium 135 mmol/L (136-145)
[2024-05-17 16:27] LABS: Potassium 3.9 mmoL/L (3.5-5.1)
[2024-05-17 16:29] LABS: Alanine Aminotransferase 17 U/L (12-78); Albumin/Globulin Ratio 1.2 (1.1-1.8); Alkaline Phosphatase 102 U/L (38-126); Anion Gap 6.9 mEq/L (5-15); Aspartate Amino Transferase 22 U/L (14-36); Blood Urea Nitrogen 11 mg/dl (7-17); Carbon Dioxide 34 mmol/L (22.0-30.0); Creatinine Clearance Estimated 30 mL/min (50-200); Estimated Glomerular Filt Rate 222 ml/min (>60); GFR (African American) 268 ML/MIN (>60); Globulin 3.4 g/dL (1.3-3.2); Total Protein,Serum 7.5 g/dl (6.3-8.2)
[2024-05-17 16:30] LABS: Calcium 9.5 mg/dl (8.4-10.2); Glucose 143 mg/dl (74-100); INR 0.94 (0.9-1.1); Magnesium 1.5 mg/dl (1.6-2.3); Prothrombin Time 10.6 seconds (10.1-12.5)
--- NOTE | 2024-05-17 16:37 | PC.NURSE ---
Provider notified of CO2 of 61.4.
[2024-05-17 16:38] LABS: NT Pro Brain Natriuretic Pep. 831 pg/mL (0-125)
[2024-05-17 16:40] LABS: Bilirubin,Total < 0.1 mg/dl (0.2-1.3)
[2024-05-17 16:46] LABS: Troponin I < 0.01 ng/ml (0.00-0.034)
--- NOTE | 2024-05-17 16:46 | PC.NURSE ---
Gave the patient a sandwich and chips.
[2024-05-17] MEDS: MAGNESIUM SULFATE IN WATER 2 GM/50 ML PIGGYBACK IV (16:53)
[2024-05-17] MEDS: 0.9 % SODIUM CHLORIDE 50 ML VIAL IV (17:02)
[2024-05-17] MEDS: SODIUM CHLORIDE 0.9% 10ML SYR (RAD ONLY) 10 ML IV (17:02)
[2024-05-17] MEDS: IOPAMIDOL-370 (76%);100ML BOTTLE 70 ML IV (17:02)
[2024-05-17 17:36] LABS: Procalcitonin 0.066 ng/mL (0.0-2.0)
--- NOTE | 2024-05-17 18:33 | PC.NURSE ---
Manual blood pressure is 80/52 at this time.
== END 2024-05-17 18:57 | disposition home or self-care (01) ==
PROVIDERS: Physician Assistant; Emergency Provider Emergency Medicine
DX: R07.9 Chest pain, unspecified (principal); R50.9 Fever, unspecified; C34.90 Malignant neoplasm of unspecified part of unspecified bronchus or lung; Z87.891 Personal history of nicotine dependence
CPT/HCPCS: 71275; 80053; 82803; 83735; 83880; 84145; 84484; 85025; 85610; 87636; 93005; 96361; 96365; 96374; 96375; 99291; J0131; J1885; J3475; J7030; Q9967

== ENCOUNTER 2024-05-19 12:46 | Outpatient (CLI) | payer BC, OTHER, SELFPAY ==
[2024-05-19 13:05] VITALS: BMI 15.0
[2024-05-19 13:10] LABS: Basophils # 0.1 K/mm3 (0-0.2); Basophils % 0.3 % (0.1-2.0); Eosinophils % 0.1 % (0.1-12.0); Hematocrit 32.5 % (37.0-47.0); Hemoglobin 10.3 g/dL (12.2-16.2); Lymphocytes # 0.5 K/mm3 (0.7-4.5); Lymphocytes % 2.8 % (10-50); Mean Corpuscular HGB Conc 31.7 g/dL (31.8-35.4); Mean Corpuscular Hemoglobin 24.5 pg (27.0-31.2); Mean Corpuscular Volume 77.2 fl (81-99); Mean Platelet Volume 9.8 fl (7.4-10.4); Monocytes # 1.3 K/mm3 (0.1-1.0); Monocytes % 7.1 % (1.7-9.3); Neutrophils # 15.9 K/mm3 (1.8-7.8); Neutrophils % 89.2 % (37.0-80.0); Platelet Count 341 K/mm3 (142-424); Red Blood Count 4.21 M/mm3 (4.20-5.40); Red Cell Distribution Width 19.6 % (11.5-17.5); White Blood Count 17.8 K/mm3 (4.8-10.8)
[2024-05-19 13:13] LABS: MANUAL DIFFERENTIAL MANUAL DIFFERENTIAL (MANUAL DIFF)
[2024-05-19 13:19] LABS: Alanine Aminotransferase 18 U/L (12-78); Albumin Level 3.7 g/dl (3.5-5.0); Alkaline Phosphatase 120 U/L (38-126); Anion Gap 11.3 mEq/L (5-15); Aspartate Amino Transferase 23 U/L (14-36); Bilirubin,Total 0.6 mg/dl (0.2-1.3); Blood Urea Nitrogen 10 mg/dl (7-17); Calcium 9.3 mg/dl (8.4-10.2); Carbon Dioxide 30 mmol/L (22.0-30.0); Chloride 96 mmol/L (98-107); Creatinine Clearance Estimated 31 mL/min (50-200); Estimated Glomerular Filt Rate 123 ml/min (>60); GFR (African American) 149 ML/MIN (>60); Globulin 3.6 g/dL (1.3-3.2); Glucose 168 mg/dl (74-100); Potassium 4.3 mmoL/L (3.5-5.1); Sodium 133 mmol/L (136-145); Total Protein,Serum 7.3 g/dl (6.3-8.2)
[2024-05-19 13:25] LABS: Hypochromasia 1+; Lymphocytes % 4 % (10-50); Microcytosis 1+; Monocytes % 7 % (2-9); Neutrophils % 89 % (42-76); Ovalocytes 1+; Platelet Estimate Normal; Total Cells Counted 100
[2024-05-19 14:10] VITALS: BP 91/50; PULSE 108; RESP 19; O2SAT 94
[2024-05-19] MEDS: PEMBROLIZUMAB 200 MG in 0.9 % SODIUM CHLORIDE 50 ML 116 MG IV (14:10)
[2024-05-19] MEDS: SODIUM CHLORIDE 0.9% 50ML BAG 50 ML IV (14:21)
[2024-05-19 15:03] VITALS: BP 93/51; PULSE 81; RESP 19; O2SAT 94
== END 2024-05-19 15:03 | disposition home or self-care (01) ==
LOC: INF 12:47
PROVIDERS: PCP Internal Medicine Adolescent Medicine; Visit Provider Internal Medicine Medical Oncology
DX: Z51.11 Encounter for antineoplastic chemotherapy (principal); C34.90 Malignant neoplasm of unspecified part of unspecified bronchus or lung
CPT/HCPCS: 80053; 85007; 85025; 96413; J9271

== ENCOUNTER 2024-06-21 12:32 | Outpatient (CLI) | payer BC, OTHER, SELFPAY ==
--- OUTSIDE RECORDS SUMMARY | 2024-06-21 12:34 | XMS_ITS | Data Portability ---
Author Organization [facility] & Sally [facility] Address [address] [place] [id number] Assessment No assessment recorded. Plan of Treatment Reminders Order Date Submit Date Provider Last Modified By Organization Details Last Modified Time Details Appointments None record ed. Lab None record ed. Referral None record ed. Procedures None record ed. Surgeries None record ed. Imaging XR, chest, 2 view 024 07/01/19 24 [facility] (Centralized Scheduling), [address] [facility], [place], [address], 11:36:40 Medication Orders None record ed. Patient TargetsNo targets recorded. Patient InstructionsNo instructions recorded. Reason for Referral None Reported. Results Created Date Observation Date Name Description Value Unit Range Abnormal Flag Note LastModifiedBy Organization Detail LastModifiedTime 10/28/19 24 10/27/2023 CT, chest , w/o contr ast No observ ation record ed. [facility] (Med Record) [address], [place], [address], 11/06/2023 11:48:34 10/29/19 24 08/27/2023 CT, chest , w/ contr ast No observ ation record ed. [facility] [address], [place], [address], 11/11/2023 16:06:08 02/10/[address], chest , w/o contr ast No observ ation record ed. [email or web address] Not Available 2023 08:43:28 Result Notes None recorded. Procedures Surgical History None recorded. Imaging Results Imaging Date Name Status LastModified by Organiz ation Details LastModified Time 10/27/2023 CT, chest, w/o contrast completed PATEL [facility] (Med Record) [address], [place], [address], 11/06/2023 11:48:34 08/27/2023 CT, chest, w/ contrast completed [email or web address] [facility] [address], [place], [address], 11/11/2023 16:06:08 02/10/2024 CT, chest, w/o contrast completed [email or web address] Information not available 02/15/2024 08:43:28 Procedure Notes None recorded. Medical Equipment None Reported. Allergies Allergen ID Allergen Name Allergen Category Reaction Reaction Severity Criticality Documentation Date Start Date Code Code System Note Provider Name and Address Organization Details Recorded Time 056741 diazepam medicatio n Not available Not available Not available 07/01/2023 3322 RxNorm [place] Rojas [facility] & [place] 4 11:13:48 355703 aspirin medicatio n Not available Not available Not available 07/01/2023 1191 RxNorm [place] [facility] & [place] 4 11:13:58 Medications Name Sig Start Date Stop Date Status Note LastModified by Organization Details LastModified Time nystatin 100,000 unit/mL oral suspension TAKE 5 ML BY MOUTH 4 TIMES DAILY FOR 14 DAYS active Not Available Not Available Not Available ipratropium 0.5 mg-albuterol 3 mg (2.5 mg base)/3 mL nebulization soln USE 3 ML VIA NEBULIZER THREE TIMES DAILY active Not Available Not Available No t Available trazodone 50 mg tablet TAKE 1 TABLET BY MOUTH ONCE DAILY AT BEDTIME NEEDED active Not Available Not Available No t Available azithromycin 250 mg tablet active Not Available Not Available Not Available ibuprofen 800 mg tablet TAKE 1 TABLET BY MOUTH EVERY 8 HOURS NEEDED FOR PAIN active Not Available Not Available No t Available fluconazole 150 mg tablet TAKE ONE TABLET BY MOUTH ONCE A DAY active Not Available Not Available No t Available amiodarone 200 mg tablet TAKE 1 TABLET BY MOUTH ONCE DAILY FOR 90 DAYS active Not Available Not Available No t Available hydrocodone 5 mg-acetamino phen 325 mg tablet TAKE 1 TABLET BY MOUTH EVERY 6 HOURS NEEDED FOR 3 DAYS active Not Available Not Available No t Available Ativan 1 mg tablet TAKE 1 TABLET BY MOUTH THREE TIMES DAILY NEEDED FOR ANXIETY active Not Available Not Available Not Available ondansetron HCl 4 mg tablet TAKE 1 TABLET BY MOUTH EVERY 6 HOURS active Not Available Not Available No t Available prednisone 20 mg tablet TAKE 1 TABLET BY MOUTH TWICE DAILY FOR 20 DAYS active Not Available Not Available No t Available levofloxacin 250 mg tablet TAKE 3 TABLETS BY MOUTH EVERY 24 HOURS active Not Available Not Available No t Available digoxin 250 mcg (0.25 mg) tablet TAKE 1 TABLET BY MOUTH ONCE DAILY active Not Available Not Available No t Available bisoprolol fumarate 5 mg tablet TAKE 1/2 (ONE-HALF) TABLET BY MOUTH ONCE DAILY active Not Available Not Available No t Available amoxicillin 875 mg tablet TAKE 1 TABLET BY MOUTH TWICE DAILY FOR 10 DAYS active Not Available Not Available No t Available methocarbamo l 750 mg tablet TAKE 1 TABLET BY MOUTH EVERY 6 HOURS NEEDED FOR MUSCLE SPASM active Not Available Not Available No t Available Valium 5 mg tablet TAKE 1 TABLET BY MOUTH EVERY 12 HOURS NEEDED active Not Available Not Available No t Available doxycycline monohydrate 100 mg capsule TAKE 1 CAPSULE BY MOUTH TWICE DAILY FOR 10 DAYS active Not Available Not Available No t Available hydrocodone 7.5 mg-acetamino phen 325 mg tablet TAKE 1 TABLET BY MOUTH EVERY 6 HOURS NEEDED active Not Available Not Available No t Available prednisone 50 mg tablet TAKE 1 TABLET BY MOUTH ONCE DAILY FOR 5 DAYS active Not Available Not Available No t Available nicotine 21 mg/24 hr daily transdermal patch APPLY 1 PATCH TOPICALLY ONCE DAILY NEEDED FOR SMOKING CESSATION active Not Available Not Available No t Available codeine 10 mg-guaifenes in 100 mg/5 mL oral liquid TAKE 10 ML BY MOUTH EVERY 4 HOURS FOR 30 DAYS active Not Available Not Available No t Available mupirocin 2 % topical ointment APPLY TOPICALLY 3 TIMES DAILY NEEDED FOR SKIN SORENESS active Not Available Not Available No t Available furosemide 20 mg tablet TAKE 1 TABLET BY MOUTH ONCE DAILY active Not Available Not Available No t Available mirtazapine 15 mg tablet TAKE 1 TABLET BY MOUTH ONCE DAILY AT BEDTIME active Not Available Not Available No t Available levalbuterol 1.25 mg/3 mL solution for nebulization USE 3 ML IN NEBULIZER EVERY 6 HOURS active Not Available Not Available No t Available levofloxacin 500 mg tablet TAKE 1 TABLET BY MOUTH EVERY 24 HOURS FOR 10 DAYS active Not Available Not Available Not Available levofloxacin 750 mg tablet TAKE 1 TABLET BY MOUTH ONCE EVERY 48 HOURS FOR 3 DAYS. FIRST DOSE TONIGHT(), LAST DOSE EVENING OF 04-28 active Not Available Not Available No t Available methylpredni solone 4 mg tablets in a dose pack FOLLOW PACKAGE DIRECTIONS active Not Available Not Available N ot Available albuterol sulfate HFA 90 mcg/actuatio n aerosol inhaler INHALE 2 PUFFS BY MOUTH EVERY 6 HOURS NEEDED FOR SHORTNESS OF BREATH active Not Available Not Available No t Available ondansetron 4 mg disintegrati ng tablet DISSOLVE 1 TABLET IN MOUTH 4 TIMES DAILY NEEDED FOR NAUSEA AND VOMITING active Not Available Not Available No t Available cefdinir 300 mg capsule TAKE 1 CAPSULE BY MOUTH TWICE DAILY FOR 10 DAYS active Not Available Not Available No t Available ipratropium bromide 0.02 % solution for inhalation INHALE 2.5 ML VIAL IN NEBULIZER EVERY 6 HOURS FOR 30 DAYS active Not Available Not Available No t Available amoxicillin 875 mg-potassium clavulanate 125 mg tablet TAKE 1 TABLET BY MOUTH TWICE DAILY FOR 10 DAYS active Not Available Not Available No t Available oxycodone 5 mg tablet TAKE 1 TABLET BY MOUTH TWICE DAILY active Not Available Not Available No t Available midodrine 10 mg tablet TAKE 1 TABLET BY MOUTH THREE TIMES DAILY active Not Available Not Available Not Available Xarelto 15 mg tablet TAKE 1 TABLET BY MOUTH IN THE EVENING WITH MEALS active Not Available Not Available N ot Available Combivent Respimat 20 mcg-100 mcg/actuatio n solution for inhalation INHALE 1 PUFF BY MOUTH EVERY 6 HOURS active Not Available Not Available No t Available Mucus DM Max ER 60 mg-1,200 mg tablet,exten ded release TAKE 1 TABLET BY MOUTH EVERY 12 HOURS FOR 10 DAYS active Not Available Not Available Not Available Eliquis 5 mg tablet TAKE 1 TABLET BY MOUTH TWICE DAILY active Not Available Not Available No t Available Jardiance 10 mg tablet TAKE 1 TABLET BY MOUTH ONCE DAILY active Not Available Not Available No t Available Stiolto Respimat 2.5 mcg-2.5 mcg/actuatio n solution for inhalation INHALE 2 PUFFS BY MOUTH DAILY active Not Available Not Available Not Available Entresto 24 mg-26 mg tablet TAKE 1 TABLET BY MOUTH TWICE DAILY active Not Available Not Available No t Available Ubrelvy 100 mg tablet TAKE 1 TABLET BY MOUTH ONCE DAILY NEEDED FOR 30 DAYS active Not Available Not Available No t Available Vitals Date Recorded Body height Oxygen saturation Oxygen saturation in Arterial blood by Pulse oximetry Heart rate Body temperature Body mass index (BMI) Body weight Systolic blood pressure Diastolic blood pressure Provider Name and Address Organization Details Last Updated DateTime 4 154.94 cm 92 % 92 % 128 /min 97 [degF] 18.1 kg/m2 38278.8 7 g 124 mm[Hg] 59 mm[Hg] [facility] & [place] 4 11:13:15 Date Recorded Body height Body temperature Body mass index (BMI) Body weight Heart rate Oxygen saturation Oxygen saturation in Arterial blood by Pulse oximetry Systolic blood pressure Diastolic blood pressure Provider Name and Address Organization Details Last Updated DateTime 4 154.94 cm 98.6 [degF] 18.6 kg/m2 13886.2 1 g 92 /min 100 % 100 % 100 mm[Hg] 62 mm[Hg] Ofelia Duarte [place] [facility] [place] [facility] & [place] 4 13:13:10 Social History None recorded. Functional Status None recorded. Mental Status None recorded. Family History Nothing Reported. Medical History No medical history recorded. Gynecological HistoryNo gynecological history recorded. Obstetrics History GPAL:G 0 P 0 0 0 0 Past Encounters Encounter ID Performer Location Encounter Start Date Encounter Closed Date Diagnosis/Indication Diagnosis SNOMED-CT Code Diagnosis ICD10 Code Diagnosis Note [id number] Mora Early in, PROSTHODONTIST/EDUCATOR [facility] Infectiou s Disease [address] [place] [address] 07/01/2023 10:59:47 07/01/2023 11:35:02 Community acquired pneumonia [id number] J18.9 Exam is unremarkab le. Patient is on 2L NC all the time at home. Will send for follow up chest xray. Will see patient back in 2 weeks to evaluate condition. Fall W19.XXXA Patient fell in our parking lot. She is on blood thinners. She has a bruise/hem atoma on the right muslim. She also has an abrasion on the right arm. Incident report filed. Management notified. ER notified. Patient sent to [facility] ER to be evaluated. She has a family member to drive her. She is stable upon discharge. [id number] Mora Early in, PROSTHODONTIST/EDUCATOR [facility] Infectiou s Disease [address] [place] [address] 07/09/2023 13:01:53 07/09/2023 15:49:49 Community acquired pneumonia [id number] J18.9 Patient remains on 1.5-2L NC. Patient is stable at baseline. Follow up PRN. Health Concerns Section Related Observation LastModified by Organization Detai ls LastModified Time None Recorded Concern Status LastModified by Organization Details LastModified Time None Recorded Advance Directives Directive None Recorded Payers Encounter Date Sequence Insurance Name Policy Number Policy Garcia Covered Member ID Garcia Member ID Guarantor Name 07/01/2023 1 [place] [id number] Kehinde Jensen [id number] 07/09/2023 1 [place] [id number] Kehinde Jensen [id number] Notes Date Note Type Note Provider Name and Address Organization Details Recorded Time 07/01/2023 text/html patient is a 67 year old white female presenting to clinic for hospital follow up for pneumonia. Patient states she continues to feel better. Her SOB improves but she remains on 2L NC. She denies any fevers. Denies any sputum production. Denies any chest pain. Patient did fall in our clinic parking lot and she hit her head resulting in a hematoma on the right muslim. She is on blood thinners. She also reports an abrasion and pain to the right arm. She is stable in clinic currently. She is requesting to be evaluated by our medical team. She denies any loss of consciousness. Denies any headache. Denies any change in vision or hearing. Mora Poole, PROSTHODONTIST/EDUCATOR [address], [place], [address], [place] - [facility] - [place] & [place] 07/01/2023 11:57:02 07/09/2023 text/html patient is a 67 year old white female presenting to clinic for hospital follow up for pneumonia. Patient states she continues to feel better. Her SOB improves but she remains on 1.5L NC. She denies any fevers. Denies any sputum production. Denies any chest pain. Mora Poole, PROSTHODONTIST/EDUCATOR [address], [place], [address], [facility] - [place] - [place] & [place] 07/09/2023 15:14:21 OBGyn Episode No OBEpisode recorded.
[2024-06-21 12:43] VITALS: BMI 15.6
[2024-06-21 13:07] LABS: Basophils % 0.3 % (0.1-2.0); Eosinophils # 0.1 Kmm3 (0.0-0.4); Eosinophils % 1.1 % (0.1-12.0); Hematocrit 34.7 % (37.0-47.0); Hemoglobin 10.8 g/dL (12.2-16.2); Lymphocytes # 0.5 K/mm3 (0.7-4.5); Lymphocytes % 3.5 % (10-50); Mean Corpuscular HGB Conc 31.1 g/dL (31.8-35.4); Mean Corpuscular Hemoglobin 25.2 pg (27.0-31.2); Mean Corpuscular Volume 81.1 fl (81-99); Mean Platelet Volume 9.2 fl (7.4-10.4); Monocytes % 7.9 % (1.7-9.3); Neutrophils # 11.3 K/mm3 (1.8-7.8); Neutrophils % 86.1 % (37.0-80.0); Nucleated Red Blood Cells # 0 10^3/uL; Nucleated Red Blood Cells % 0 %; Platelet Count 409 K/mm3 (142-424); Red Blood Count 4.28 M/mm3 (4.20-5.40); Red Cell Distribution Width 21.4 % (11.5-17.5); Red Cell Distribution Width-SD 63.2 fL; White Blood Count 13.1 K/mm3 (4.8-10.8)
[2024-06-21 13:12] LABS: Albumin Level 3.7 g/dl (3.5-5.0); Chloride 97 mmol/L (98-107); Sodium 133 mmol/L (136-145)
[2024-06-21 13:13] LABS: Potassium 4.2 mmoL/L (3.5-5.1)
[2024-06-21 13:15] LABS: Alanine Aminotransferase 17 U/L (12-78); Anion Gap 10.2 mEq/L (5-15); Aspartate Amino Transferase 24 U/L (14-36); Blood Urea Nitrogen 12 mg/dl (7-17); Carbon Dioxide 30 mmol/L (22.0-30.0); Creatinine Clearance Estimated 31 mL/min (50-200); Estimated Glomerular Filt Rate 159 ml/min (>60); GFR (African American) 193 ML/MIN (>60)
[2024-06-21 13:16] LABS: Albumin/Globulin Ratio 0.9 (1.1-1.8); Alkaline Phosphatase 107 U/L (38-126); Bilirubin,Total 0.4 mg/dl (0.2-1.3); Calcium 9.3 mg/dl (8.4-10.2); Globulin 3.9 g/dL (1.3-3.2); Glucose 89 mg/dl (74-100); Iron 25 ug/dL (37-170); MANUAL DIFFERENTIAL MANUAL DIFFERENTIAL (MANUAL DIFF); Total Protein,Serum 7.6 g/dl (6.3-8.2)
[2024-06-21 13:25] LABS: Total Iron Binding Capacity 308 ug/dL (265-497)
[2024-06-21 13:45] LABS: Thyroid Stimulating Hormone 0.18 uIU/mL (0.465-4.68)
[2024-06-21 13:48] LABS: Eosinophils % 1 % (0-3); Hypochromasia 2+; Lymphocytes % 9 % (10-50); Monocytes % 2 % (2-9); Neutrophils % 88 % (42-76); Platelet Estimate Normal; Total Cells Counted 100
[2024-06-21 13:53] LABS: Ferritin 120 ng/ml (11.1-264)
[2024-06-21] MEDS: PEMBROLIZUMAB 400 MG in 0.9 % SODIUM CHLORIDE 50 ML 132 MG IV (14:18)
[2024-06-21] MEDS: SODIUM CHLORIDE 0.9% 50ML BAG 50 ML IV (14:19)
[2024-06-21] MEDS: SODIUM CHLORIDE 0.9% 10ML FLUSH SYRINGE 10 ML IV (14:19)
[2024-06-21 14:25] VITALS: BP 103/64; PULSE 103; RESP 18; TEMP 36.7; O2SAT 98
[2024-06-21 15:10] VITALS: BP 107/56; PULSE 100
== END 2024-06-21 15:36 | disposition home or self-care (01) ==
LOC: INF 12:33
PROVIDERS: PCP Internal Medicine Adolescent Medicine; Visit Provider Internal Medicine Medical Oncology
DX: Z51.11 Encounter for antineoplastic chemotherapy (principal); C34.90 Malignant neoplasm of unspecified part of unspecified bronchus or lung
CPT/HCPCS: 80053; 82533; 82728; 83540; 83550; 84443; 85007; 85025; 96413; J9271

== ENCOUNTER 2024-07-09 11:13 | Inpatient (IN) | payer BC, OTHER, SELFPAY ==
[2024-07-09] VITALS (13 sets, daily range): BP systolic 131–174; BP diastolic 83–93; PULSE 102–114; RESP 17–30; TEMP 36.5–37.1; O2SAT 97–100; BMI 16.2; BMI 16.7
--- OUTSIDE RECORDS SUMMARY | 2024-07-09 11:30 | XMS_ITS | Data Portability ---
Author Organization [facility] & Sally [facility] Address [address] [place] [id number] Assessment No assessment recorded. Plan of Treatment Reminders Order Date Submit Date Provider Last Modified By Organization Details Last Modified Time Details Appointments None record ed. Lab None record ed. Referral None record ed. Procedures None record ed. Surgeries None record ed. Imaging XR, chest, 2 view 024 07/01/19 24 [facility] (Centralized Scheduling), [address] [facility], [place], [address], 11:36:40 Medication Orders None record ed. Patient TargetsNo targets recorded. Patient InstructionsNo instructions recorded. Reason for Referral None Reported. Results Created Date Observation Date Name Description Value Unit Range Abnormal Flag Note LastModifiedBy Organization Detail LastModifiedTime 10/28/19 24 10/27/2023 CT, chest , w/o contr ast No observ ation record ed. [facility] (Med Record) [address], [place], [address], 11/06/2023 11:48:34 10/29/19 24 08/27/2023 CT, chest , w/ contr ast No observ ation record ed. [email or web address] [facility] [address], [place], [address], 11/11/2023 16:06:08 02/10/[address], chest , w/o contr ast No observ ation record ed. [email or web address] Not Available 2023 08:43:28 Result Notes None recorded. Procedures Surgical History None recorded. Imaging Results Imaging Date Name Status LastModified by Organiz ation Details LastModified Time 10/27/2023 CT, chest, w/o contrast completed PATEL [facility] (Med Record) [address], [place], [address], 11/06/2023 11:48:34 08/27/2023 CT, chest, w/ contrast completed [email or web address] [facility] [address], [place], [address], 11/11/2023 16:06:08 02/10/2024 CT, chest, w/o contrast completed [email or web address] Information not available 02/15/2024 08:43:28 Procedure Notes None recorded. Medical Equipment None Reported. Allergies Allergen ID Allergen Name Allergen Category Reaction Reaction Severity Criticality Documentation Date Start Date Code Code System Note Provider Name and Address Organization Details Recorded Time 806767 diazepam medicatio n Not available Not available Not available 07/01/2023 3322 RxNorm [place] Rojas [facility] & [place] 4 11:13:48 374212 aspirin medicatio n Not available Not available Not available 07/01/2023 1191 RxNorm [place] Rojas [facility] & [place] 4 11:13:58 Medications Name Sig Start Date [...] % 128 /min 97 [degF] 18.1 kg/m2 10722.8 7 g 124 mm[Hg] 59 mm[Hg] [facility] & [place] 4 11:13:15 Date Recorded Body height Body temperature Body mass index (BMI) Body weight Heart rate Oxygen saturation Oxygen saturation in Arterial blood by Pulse oximetry Systolic blood pressure Diastolic blood pressure Provider Name and Address Organization Details Last Updated DateTime 4 154.94 cm 98.6 [degF] 18.6 kg/m2 80815.2 1 g 92 /min 100 % 100 % 100 mm[Hg] 62 mm[Hg] Ofelia Duarte [place] [facility] [place] [facility] & [place] 4 13:13:10 Social History None recorded. Functional Status None recorded. Mental Status None recorded. Family History Nothing Reported. Medical History No medical history recorded. Gynecological HistoryNo gynecological history recorded. Obstetrics History GPAL:G 0 P 0 0 0 0 Past Encounters Encounter ID Performer Location Encounter Start Date Encounter Closed Date Diagnosis/Indication Diagnosis SNOMED-CT Code Diagnosis ICD10 Code Diagnosis Note [id number] Mora Early in, [employer] [facility] Infectiou s Disease [address] [place] [address] 07/01/2023 10:59:47 07/01/2023 11:35:02 Community acquired pneumonia [id number] J18.9 Exam is unremarkab le. Patient is on 2L NC all the time at home. Will send for follow up chest xray. Will see patient back in 2 weeks to evaluate condition. Fall W19.XXXA Patient fell in our parking lot. She is on blood thinners. She has a bruise/hem atoma on the right mormon. She also has an abrasion on the right arm. Incident report filed. Management notified. ER notified. Patient sent to [facility] ER to be evaluated. She has a family member to drive her. She is stable upon discharge. [id number] Mora Early in, [employer] [facility] Infectiou s Disease [address] [place] [address] 07/09/2023 13:01:53 07/09/2023 15:49:49 Community acquired pneumonia [id number] J18.9 Patient remains on 1.5-2L NC. Patient is stable at baseline. Follow up PRN. Health Concerns Section Related Observation LastModified by Organization Detai ls LastModified Time None Recorded Concern Status LastModified by Organization Details LastModified Time None Recorded Advance Directives Directive None Recorded Payers Insurance Date Sequence Insurance Name Policy Number Policy Garcia Covered Member ID Garcia Member ID Guarantor Name 09/03/2023 1 [place] [id number] Kehinde Jensen [id number] 09/30/2023 1 [place] [id number] Bernardine Kameron [id number] 02/07/2024 1 [place] [id number] Kehinde Jensen [id number] Notes Date Note Type Note Provider Name [...] resulting in a hematoma on the right mormon. She is on blood thinners. She also reports an abrasion and pain to the right arm. She is stable in clinic currently. She is requesting to be evaluated by our medical team. She denies any loss of consciousness. Denies any headache. Denies any change in vision or hearing. Mora Poole, [employer] [address], [place], [address], [place] [facility] & [place] 07/01/2023 11:57:02 07/09/2023 text/html patient is a 67 year old white female presenting to clinic for hospital follow up for pneumonia. Patient states she continues to feel better. Her SOB improves but she remains on 1.5L NC. She denies any fevers. Denies any sputum production. Denies any chest pain. Mora Poole, [employer] [address], [place], [address], [place] [facility] & [place] 07/09/2023 15:14:21 OBGyn Episode No OBEpisode recorded.
[2024-07-09] MEDS: ONDANSETRON 4MG/2ML VIAL 4 MG IV ×2 (11:32→20:18)
--- NOTE | 2024-07-09 11:44 | XR_ITS ---
PROCEDURE INFORMATION: Exam: XR Chest Exam date and time: 07/09/2024 11:48 AM Age: 68 years old Clinical indication: Chest wall pain; Additional info: Epigastric pain/chest pain TECHNIQUE: Imaging protocol: Radiologic exam of the chest. Views: 1 view. COMPARISON: CT ANGIO CHEST PE PROTOCOL 05/17/2024 4:57 PM FINDINGS: Lungs: Advanced centrilobular and paraseptal emphysema. There is redemonstration of bilateral regions of architectural distortion/pronounced pulmonary fibrosis. Superimposed pneumonia is difficult to exclude. Pleural spaces: Unremarkable. No pleural effusion. No pneumothorax. Heart/Mediastinum: Unremarkable. No cardiomegaly. Bones/joints: Unremarkable. IMPRESSION: Advanced centrilobular and paraseptal emphysema. There is redemonstration of bilateral regions of architectural distortion/pronounced pulmonary fibrosis. Superimposed pneumonia is difficult to exclude.
--- NOTE | 2024-07-09 11:52 | ECG_ITS ---
APPROVED REPORT Exam: Resting ECG HR:105 bpm ECG Measurements Heart Rate 105 AXES MI 144 P 50 QRSd 106 QRS -66 QT 357 T 60 QTc 418 Conclusion SINUS TACHYCARDIA POSSIBLE LEFT ATRIAL ENLARGEMENT [-0.1mV P-WAVE IN V1/V2] INFERIOR MYOCARDIAL INFARCTION , OF INDETERMINATE AGE [40+ ms Q WAVE AND/OR ST/T ABNORMALITY IN II/aVF] MODERATE T-WAVE ABNORMALITY, CONSIDER ANTERIOR ISCHEMIA [-0.1+ mV T-WAVE IN V3/V4] ABNORMAL ECG UNCONFIRMED REPORT Electronically signed by : WISAM SIDDIQUI, 07/10/2024 23:43:41
[2024-07-09] MEDS: BELLADONNA ALKALOIDS 60 ML ML PO (11:54)
[2024-07-09 12:01] LABS: Basophils # 0.1 K/mm3 (0-0.2); Basophils % 0.4 % (0.1-2.0); Eosinophils % 0.1 % (0.1-12.0); Hemoglobin 12.7 g/dL (12.2-16.2); Immature Granulocytes # 0.24 10^3uL; Immature Granulocytes % 1.5 %; Lymphocytes # 0.9 K/mm3 (0.7-4.5); Lymphocytes % 5.2 % (10-50); Mean Corpuscular HGB Conc 31.8 g/dL (31.8-35.4); Mean Corpuscular Hemoglobin 25.4 pg (27.0-31.2); Mean Platelet Volume 9.3 fl (7.4-10.4); Monocytes # 0.8 K/mm3 (0.1-1.0); Monocytes % 5.2 % (1.7-9.3); Neutrophils # 14.2 K/mm3 (1.8-7.8); Neutrophils % 87.6 % (37.0-80.0); Nucleated Red Blood Cells # 0 10^3/uL; Nucleated Red Blood Cells % 0 %; Platelet Count 627 K/mm3 (142-424); Red Cell Distribution Width 19.9 % (11.5-17.5); Red Cell Distribution Width-SD 55.8 fL; White Blood Count 16.3 K/mm3 (4.8-10.8)
[2024-07-09 12:02] LABS: Albumin Level 4.2 g/dl (3.5-5.0); Chloride 98 mmol/L (98-107)
[2024-07-09 12:03] LABS: Potassium 4.3 mmoL/L (3.5-5.1); Sodium 132 mmol/L (136-145)
[2024-07-09 12:05] LABS: Alanine Aminotransferase 20 U/L (12-78); Albumin/Globulin Ratio 1.1 (1.1-1.8); Anion Gap 12.3 mEq/L (5-15); Aspartate Amino Transferase 30 U/L (14-36); Blood Urea Nitrogen 9 mg/dl (7-17); Carbon Dioxide 26 mmol/L (22.0-30.0); Creatinine Clearance Estimated 32 mL/min (50-200); Estimated Glomerular Filt Rate 159 ml/min (>60); GFR (African American) 193 ML/MIN (>60); Globulin 3.9 g/dL (1.3-3.2); Total Protein,Serum 8.1 g/dl (6.3-8.2)
[2024-07-09 12:06] LABS: Alkaline Phosphatase 100 U/L (38-126); Bilirubin,Total 0.5 mg/dl (0.2-1.3); Calcium 9.3 mg/dl (8.4-10.2); Glucose 147 mg/dl (74-100); Lipase 30 U/L (23-300)
[2024-07-09] MEDS: LACTATED RINGERS 1000ML 1,000 ML 999 ML IV (12:09)
--- NOTE | 2024-07-09 12:50 | ED_ITS ---
Discharge Plan Disposition Chief Complaint: Nausea/Vomiting/Diarrhea Prescriptions Prescriptions: No Action megestrol 400 mg/10 mL (40 mg/mL) suspension PO Patient Comments: TAKE 10 ML BY MOUTH TWICE DAILY levalbuterol HCl 0.63 mg/3 mL solution for nebulization 0.63 mg inhalation ONCE sodium chloride 3 % solution for nebulization 1 ml inhalation DIRECTED Patient Comments: USE 4 ML IN NEBULIZER TWICE DAILY ondansetron 8 mg tablet,disintegrating 8 mg PO DAILY Eliquis 5 mg tablet 5 mg PO BID Qty: 60 2RF promethazine 12.5 mg tablet 12.5 mg PO .4-6h PRN (Reason: nausea and vomiting) Qty: 30 3RF megestrol 400 mg/10 mL (10 mL) suspension 400 mg PO BID 30 Days Qty: 600 5RF temazepam [Restoril] 7.5 mg capsule 7.5 mg PO HS PRN (Reason: insomnia) Qty: 30 0RF oxycodone 5 mg tablet 5 mg PO BIDP PRN (Reason: Pain) Qty: 60 0RF albuterol sulfate 90 mcg/actuation HFA aerosol inhaler 2 puff INHALATION DAILY PRN (Reason: SOB) ondansetron 4 mg tablet,disintegrating 4 mg PO QIDP PRN (Reason: nausea and vomiting) prednisone 20 mg tablet 20 mg PO BID Patient Comments: TAKE 1 TABLET BY MOUTH TWICE DAILY FOR 20 DAYS Rx Instructions: PATIENT STATES SHE TAKES NEEDED FOR PAIN furosemide 20 mg tablet 20 mg PO DAILY Patient Comments: TAKE 1 TABLET BY MOUTH ONCE DAILY Rx Instructions: PATIENT STATES SHE TAKES NEEDED FOR LLE mirtazapine 15 mg tablet 15 mg PO HS Patient Comments: TAKE 1 TABLET BY MOUTH ONCE DAILY AT BEDTIME Referrals Follow up/Referrals: Mk Reagan MD [Primary Care Provider] - See instructions Instructions Patient Instructions: DI for Diarrhea and Traveler's Diarrhea -- Adult, DI for Diarrhea and Traveler's Diarrhea -- Child, DI for Nausea -- Adult, DI for Nausea -- Child Print Language Print Language: Sami Discharge ED Provider: [facility] HPI General Chief complaint: Nausea/Vomiting/Diarrhea Stated complaint: Vomiting, Headache Time Seen by Provider: 07/09/24 11:20 Mode of Arrival: Wheelchair Source of Information: Patient Description of Symptoms (Recalled from ER Triage Doc. by RN): patient states she has been nauseated and vomiting since 2pm yesterday denies any abdominal pain History of Present Illness HPI narrative: Alba Melo is a 68 y/o female presenting with nausea and vomiting. Patient reports acute onset nausea and vomiting yesterday at 2 PM. Patient has lung cancer and is on a chemotherapy agent every 6 weeks. Patient reports no chest pain at this time. Patient describes pain as epigastric. She has not had any recent changes in her medications. She does not feel that she ate anything unusual yesterday. She denies history of GERD or reflux. Patient denies fevers or chills. Patient is not on blood thinners. Patient has a history of AL in 2014 s/p 2 stents. Patient has an allergy to aspirin. Patient denies melena or dysuria. Related Data Home Medications ?Medication ?Instructions ?Recorded ?Confirmed albuterol sulfate 90 mcg/actuation 2 puff inhalation DAILY PRN SOB 01/11/24 06/21/24 aerosol inhaler furosemide 20 mg tablet 20 mg PO DAILY 01/12/24 06/21/24 mirtazapine 15 mg tablet 15 mg PO HS 01/12/24 06/21/24 ondansetron 4 mg disintegrating 4 mg PO QIDP PRN nausea and 01/12/24 06/21/24 tablet vomiting prednisone 20 mg tablet 20 mg PO BID 01/12/24 06/21/24 levalbuterol HCl 0.63 mg/3 mL 0.63 mg inhalation ONCE 02/16/24 06/21/24 solution for nebulization ondansetron 8 mg disintegrating 8 mg PO DAILY 02/16/24 06/21/24 tablet sodium chloride 3 % for 1 ml inhalation DIRECTED 02/16/24 06/21/24 nebulization megestrol 400 mg/10 mL (40 mg/mL) mg PO 06/21/24 06/21/24 oral suspension Previous Rx's ?Medication ?Instructions ?Recorded apixaban 5 mg tablet (Eliquis) 5 mg PO BID #60 tabs 12/14/23 promethazine 12.5 mg tablet 12.5 mg PO .4-6h PRN nausea and 03/21/24 vomiting #30 tabs megestrol 400 mg/10 mL (10 mL) 400 mg (10 mL) PO BID 1 month #600 05/27/24 oral suspension mL oxycodone 5 mg tablet 5 mg PO BIDP PRN Pain #60 tabs 07/07/24 temazepam 7.5 mg capsule (Restoril) 7.5 mg PO HS PRN insomnia #30 caps 07/07/24 Allergies Allergy/AdvReac Type Severity Reaction Status Date / Time diazepam AdvReac Severe Vomiting Verified 06/21/24 13:19 aspirin AdvReac Other Verified 06/21/24 13:19 [facility] Disclaimer: The information contained in this section may have been updated after the patient was seen, as this information can be updated by other users. Medical History Bilateral pneumonia Dizziness Crescendo angina Headache Right middle lobe pneumonia Acute exacerbation of chronic obstructive pulmonary disease GI bleed Sepsis Acute on chronic HFrEF (heart failure with reduced ejection fraction) Iron deficiency anemia Abnormal cardiovascular stress test Paroxysmal atrial fibrillation Lung collapse Angina pectoris Acute and chronic respiratory failure with hypoxia Atrial fibrillation with RVR Primary lung cancer Acute hypoxemic respiratory failure Lung cancer Orthopnea Hemoptysis Smoking greater than 30 pack years Pulmonary emphysema History of lung cancer in adulthood Hilar lymphadenopathy Nodule of right lung Stenosis of carotid artery Cancer Migraine Heart attack NSCLC of left lung Anxiety Tooth abscess Antibiotics and diflucan for vaginitis from antibiotics. F/U with Dr Sherwood Surgical History History of bladder surgery History of heart artery stent History of hysterectomy Family History Other Cancer Heart attack Hypertension Stroke Social History Smoking Status: Current every day smoker tobacco type: cigarettes packs per day: 1 alcohol intake: never substance use type: denies use current occupational status: other Travel in the last 8 weeks?: None Have you lived/traveled outside [place] in past 30 days?: No Contact w/someone who lives/traveled outside US past 30 days?: No Exposure to someone with infectious disease in past 14 days?: No Do you have a fever (greater than 100.4 F or 38 C)?: No Have you tested positive for COVID-19?: No Exposed to someone with COVID-19 in past 14 days?: No Do you have a sore throat?: No Do you have a cough?: No Do you have any weakness?: No Do you have any diarrhea?: No Are you experiencing any unusual bleeding?: No Do you have any muscle aches/pain?: No Do you have any abdominal pain?: No Are you experiencing loss of taste or smell?: No Other Medical History Have you received the Flu Vaccine for this season: No Have you received the Pneumonia Vaccine: No ROS Obtained: Yes All systems reviewed & no additional complaints except as documented Physical Exam General General appearance: alert and in no apparent distress Head Head exam: atraumatic Eye Eye exam: Present EOMI; Absent scleral icterus Neck Neck exam: Present full ROM Chest Chest inspection: Present normal inspection Respiratory Respiratory exam: Present other (Decreased lung sounds bilaterally in the mid and lower lung balderas); Absent respiratory distress or wheezes Cardiovascular Cardiovascular exam: Present regular rate and normal rhythm Abdominal Exam Abdominal exam: Present soft and distention; Absent tenderness Abdominal tenderness: Present epigastrium Extremities Exam Extremities exam: Present full ROM; Absent tenderness or edema Neurological Exam Neurological exam: Present alert and oriented X3 Psychiatric Psychiatric exam: Present normal mood Skin Skin exam: Present warm and dry Medical Decision Making Medical Records Medical records reviewed: Yes I reviewed the patient's medical records. Screening: Per USPSTF and CDC recommendations, given the prevalence of disease in our region, it is our hospital?s policy to screen for HIV and viral Hepatitis for all patients aged 18 and over and those with ongoing risk factors. Shin Inquiry Pt receiving controlled substance: No Vital Signs: 07/09/24 11:18 07/09/24 11:22 07/09/24 11:30 Temperature 97.7 F Temperature Source Oral Pulse Rate 112 H 107 H Pulse Rate [Right Radial] 111 H Respiratory Rate 22 24 Blood Pressure 151/93 H 144/83 H Blood Pressure [Right Arm] 151/93 H Blood Pressure Mean [Right Arm] 112 Blood Pressure Source [Right Arm] Automatic Cuff Blood Pressure Position [Right Arm] Supine 02 Sat by Pulse Oximetry 99 100 100 Oxygen Delivery Method Room Air Nasal Cannula Room Air Oxygen Flow Rate (LPM) 2.5 07/09/24 12:00 07/09/24 12:30 07/09/24 13:00 Temperature Temperature Source Pulse Rate 103 H 105 H 109 H Pulse Rate [Right Radial] Respiratory Rate 20 30 H 17 Blood Pressure 150/85 H 174/91 H 155/86 H Blood Pressure [Right Arm] Blood Pressure Mean [Right Arm] Blood Pressure Source [Right Arm] Blood Pressure Position [Right Arm] 02 Sat by Pulse Oximetry 100 99 99 Oxygen Delivery Method Nasal Cannula Nasal Cannula Nasal Cannula Oxygen Flow Rate (LPM) 4 07/09/24 13:29 07/09/24 14:00 07/09/24 14:15 Temperature Temperature Source Pulse Rate 112 H 109 H 114 H Pulse Rate [Right Radial] Respiratory Rate 26 H 29 H 25 H Blood Pressure 153/87 H 155/84 H 155/84 H Blood Pressure [Right Arm] Blood Pressure Mean [Right Arm] Blood Pressure Source [Right Arm] Blood Pressure Position [Right Arm] 02 Sat by Pulse Oximetry 99 100 99 Oxygen Delivery Method Nasal Cannula Nasal Cannula Oxygen Flow Rate (LPM) 4 4 07/09/24 15:30 Temperature Temperature Source Pulse Rate 108 H Pulse Rate [Right Radial] Respiratory Rate 18 Blood Pressure 131/88 Blood Pressure [Right Arm] Blood Pressure Mean [Right Arm] Blood Pressure Source [Right Arm] Blood Pressure Position [Right Arm] 02 Sat by Pulse Oximetry 100 Oxygen Delivery Method Nasal Cannula Oxygen Flow Rate (LPM) 4 Lab Data Lab results reviewed: Yes I reviewed the patient's lab results. Lab Results 07/09/24 11:23: WBC 16.3 H, RBC 5.00, Hgb 12.7, Hct 40.0, MCV 80.0 L, MCH 25.4 L , MCHC 31.8, RDW 19.9 H, Plt Count 627 H, MPV 9.3, Neut % (Auto) 87.6 H, Lymph % (Auto) 5.2 L, [place] % (Auto) 5.2, Eos % (Auto) 0.1, Baso % (Auto) 0.4, Neut # (Auto) 14.2 H, Lymph # (Auto) 0.9, [place] # (Auto) 0.8, Eos # (Auto) 0.0, Baso # (Auto) 0.1, D-Dimer 0.88 H, Sodium 132 L, Potassium 4.3, Chloride 98, Carbon Dioxide 26, Anion Gap 12.3, BUN 9, Creatinine 0.40 L, Estimated Creat Clear 32, Estimated GFR 159, Est GFR ( Amer) 193, Glucose 147 H, Calcium 9.3, Total Bilirubin 0.5, AST 30, ALT 20, Alkaline Phosphatase 100, Troponin I 0.04 H, Total Protein 8.1, Albumin 4.2, Globulin 3.9 H, Albumin/Globulin Ratio 1.1, Lipase 30 07/09/24 11:23 07/09/24 11:23 Orders (Tests/Meds): ED MEDICATIONS Generic Name Dose Route Start Last Admin Trade Name Dennise PRN Reason Stop Dose Admin Acetaminophen 650 mg 07/09/24 15:34 Acetaminophen 325mg Tab PO 08/08/24 15:33 Q4HP PRN Fever or Mild Pain (1-3) Enoxaparin Sodium 40 mg 07/10/24 09:00 Enoxaparin 40mg/0.4ml Syringe SUBCUT 08/09/24 08:59 DAILY CY Ceftriaxone Sodium 2 gm/ 100 mls @ 200 mls/hr 07/09/24 15:15 07/09/24 15:28 Sodium Chloride IV 07/09/24 15:44 200 mls/hr ONCE ONE Administration Lactated Ringer's 1,000 mls @ 75 mls/hr 07/09/24 15:45 Lactated Ringer's 1000 Ml Bag IV 08/08/24 15:44 .[id number] CY Lactated Ringer's 500 mls @ 999 mls/hr 07/09/24 15:40 Lactated Ringer's 500ml IV 07/09/24 16:10 .Q31M ONE Ondansetron HCl 4 mg 07/09/24 15:34 Ondansetron 4mg/2ml Vial IV 08/08/24 15:33 Q4HP PRN Nausea Discontinued Medications Generic Name Dose Route Start Last Admin Trade Name Freq PRN Reason Stop Dose Admin Belladonna Alkaloids 60 ml 07/09/24 11:44 07/09/24 11:54 Belladonna Alkaloids 60 Ml Ml PO 07/09/24 11:45 60 ml ONCE ONE Administration Lactated Ringer's 1,000 mls @ 999 mls/hr 07/09/24 11:44 07/09/24 12:09 Lactated Ringer's 1000 Ml Bag IV 07/09/24 12:44 999 mls/hr .Q1H1M ONE Administration Iopamidol 70 ml 07/09/24 14:29 07/09/24 14:30 Iopamidol-370 (76%);100ml Bottle IV 07/09/24 14:30 70 ml ONCE ONE Administration Morphine Sulfate 4 mg 07/09/24 15:31 Morphine 4mg/Ml Syringe IV 07/09/24 15:32 ONCE ONE Ondansetron HCl 4 mg 07/09/24 11:30 07/09/24 11:32 Ondansetron 4mg/2ml Vial IV 07/09/24 11:31 4 mg ONCE ONE Administration Promethazine HCl 25 mg 07/09/24 12:49 07/09/24 12:58 Promethazine Hcl 25mg/Ml 1ml Vial IV 07/09/24 12:50 25 mg ONCE ONE Administration Sodium Chloride 25 ml 07/09/24 12:49 07/09/24 12:58 Sodium Chloride 0.9% 25ml Bag IV 07/09/24 12:50 25 ml ONCE ONE Administration Sodium Chloride 50 ml 07/09/24 14:29 07/09/24 14:31 0.9 % Sodium Chloride 50 Ml Vial IV 07/09/24 14:30 50 ml ONCE ONE Administration Sodium Chloride 10 ml 07/09/24 14:29 07/09/24 14:31 Sodium Chloride 0.9% 10ml Syr (Rad Only) IV 07/09/24 14:30 10 ml ONCE ONE Administration ORDERS Category Date Time Status CT abdomen pelvis w con Stat Cat Scan 07/09/24 14:[address] angio chest PE protocol Stat Cat Scan 07/09/24 14:12 Completed CXR --portable [XR chest portable] Stat Exams 07/09/24 11:44 Completed CBC w/Auto Diff [Complete Blood Count Auto Diff] Stat Lab 07/09/24 11:23 Completed CMP [Comprehensive Metabolic Panel] Stat Lab 07/09/24 11:23 Completed Complete Blood Count Auto Diff AMLAB Lab 07/10/24 06:00 Ordered Complete Blood Count Auto Diff AMLAB Lab 07/11/24 06:00 Ordered Complete Blood Count Auto Diff AMLAB Lab 07/12/24 06:00 Ordered Complete Blood Count Auto Diff AMLAB Lab 07/13/24 06:00 Ordered Complete Blood Count Auto Diff AMLAB Lab 07/14/24 06:00 Ordered Comprehensive Metabolic Panel AMLAB Lab 07/10/24 06:00 Ordered Comprehensive Metabolic Panel AMLAB Lab 07/11/24 06:00 Ordered Comprehensive Metabolic Panel AMLAB Lab 07/12/24 06:00 Ordered Comprehensive Metabolic Panel AMLAB Lab 07/13/24 06:00 Ordered Comprehensive Metabolic Panel AMLAB Lab 07/14/24 06:00 Ordered D-Dimer Stat Lab 07/09/24 11:23 Completed Lipase Stat Lab 07/09/24 11:23 Completed Magnesium AMLAB Lab 07/10/24 06:00 Ordered Magnesium AMLAB Lab 07/11/24 06:00 Ordered Magnesium AMLAB Lab 07/12/24 06:00 Ordered Magnesium AMLAB Lab 07/13/24 06:00 Ordered Magnesium AMLAB Lab 07/14/24 06:00 Ordered Trop I [Troponin I] Stat Lab 07/09/24 11:23 Completed Troponin I Q3H Lab 07/09/24 14:51 Received Troponin I Q3H Lab 07/09/24 19:00 Ordered Blood Culture Stat Micro 07/09/24 15:30 Received ECG Data Tracing #1: I reviewed this ECG and interpreted as documented below: Sinus tachycardia with a rate of 105. No QTc prolongation. No significant ST elevation/depression or evidence of acute ischemia. Medical Decision Narrative: In summary, this is a 68-year-old female presenting with nausea, vomiting and upper abdominal pain. Differential diagnosis includes was not limited to, gastritis, esophageal perforation, pneumonia, PE, ACS, worsening cancer burden, among others. On initial evaluation, patient appears ill but nontoxic. She is very thin. Patient tachycardic and attempting to vomit. Patient given IV Zofran and GI cocktail. Her examination is significant for decreased breath sounds in bilateral mid and lower lung balderas. Patient is at risk for a PE based on active cancer without blood thinner use, therefore D-dimer will be sent. Patient evaluated with CBC, CMP, lipase, EKG, CXR, D-dimer, troponin. Laboratory evaluation significant for leukocytosis of 16.3 with neutrophil predominance, which is increased from a few weeks prior. No anemia. Increased platelets at 627. Patient's sodium is at her baseline. Liver function and lipase within normal limits. CXR personally reviewed by me and demonstrates possible right middle lobe pneumonia which is difficult to differentiate based on patient's prior scarring, likely resulting from radiation treatment. Patient had recurrence of her nausea with dry heaving. Patient given IV Phenergan. D-dimer resulted at 0.88. CT PE ordered. Due to continued N/V and giving contrast, will also perform CT abd/pelvis with IV contrast. Imaging reviewed by me and demonstrates colitis without evidence of diverticulitis or perforation. CT PE demonstrates consolidation in right middle lobe as seen on CXR. Final radiologic read also notes left lower lung segmental PE without right heart strain. Rocephin added to patient's treatment plan. Patient continues to be unable to tolerate oral intake. At this time, patient was updated with her findings and advised that admission was recommended. She was in agreement. Hospital medicine attending consulted for admission and ultimately agreed to admit the patient for further management. Allison Tolliver MD Critical Care Critical Care Time Critical Care Time: No
[2024-07-09 12:56] LABS: D-Dimer 0.88 ug/mL (0.0-0.5)
[2024-07-09] MEDS: SODIUM CHLORIDE 0.9% 25ML BAG 25 ML IV (12:58)
[2024-07-09] MEDS: PROMETHAZINE HCL 25MG/ML 1ML VIAL 25 MG IV (12:58)
[2024-07-09 13:38] LABS: Troponin I 0.04 ng/ml (0.00-0.034)
--- NOTE | 2024-07-09 14:12 | CT_ITS ---
PROCEDURE INFORMATION: Exam: CTA Chest With Contrast Exam date and time: 07/09/2024 2:30 PM Age: 68 years old Clinical indication: Other: Active cancer, elevated d-dimer TECHNIQUE: Imaging protocol: Computed tomographic angiography of the chest with contrast. Exam focused on the arteries. 3D rendering (Not supervised by radiologist): MIP and/or 3D reconstructed images were created by the technologist. Radiation optimization: All CT scans at this facility use at least one of these dose optimization techniques: automated exposure control; mA and/or kV adjustment per patient size (includes targeted exams where dose is matched to clinical indication); or iterative reconstruction. Contrast material: ISO 370; Contrast volume: 70 ml; Contrast route: INTRAVENOUS (IV); COMPARISON: CT ANGIO CHEST PE PROTOCOL 05/17/2024 4:57 PM FINDINGS: Limitations: Contrast bolus tracking is suboptimal for pulmonary embolus assessment to the subsegmental level attributed to transient interruption of contrast. Pulmonary arteries: There is a subocclusive filling defect concerning for segmental left lower lobe pulmonary embolus (series 12, image 203 Aorta: Aorta is nonaneurysmal. Other arteries: Hyperattenuating material in the coronary tree likely a combination of vascular stents and atherosclerosis. Trachea: Main airways are patent. Lungs: Patchy and coalescent opacity in the right upper lobe likely a combination of pneumonia and atelectasis. There is redemonstration of region of architectural distortion in the right upper lobe. Advanced centrilobular and paraseptal emphysema is not substantially changed. Right upper lobe nodule is obscured by consolidation. Unchanged left lower lobe 7 mm nodule (series 5, image 69) Pleural spaces: No pneumothorax. No pleural effusion. There is bilateral pleural thickening Heart: Unremarkable. No cardiomegaly. No pericardial effusion. Heart RV/LV ratio: The RV/LV ratio is less than 1. Lymph nodes: Unremarkable. No enlarged lymph nodes. Bones/joints: Unremarkable. No acute fracture. Soft tissues: Unremarkable. IMPRESSION: 1. Patchy and coalescent opacity in the right upper lobe likely a combination of pneumonia and atelectasis. 2. There is a subocclusive filling defect concerning forsubocclusive pulmonary embolus versus incomplete contrast opacification (series 12, image 203) 3. No substantial change in pre-existing pulmonary nodules. COMMENTS: The presence of pulmonary emphysema on CT is an independent risk factor for lung cancer. In the absence of a history or active diagnosis of lung cancer, it is recommended that this patient with emphysema be evaluated for enrollment in a low dose CT lung cancer screening program.
--- NOTE | 2024-07-09 14:14 | CT_ITS ---
PROCEDURE INFORMATION: Exam: CT Abdomen And Pelvis With Contrast Exam date and time: 07/09/2024 2:30 PM Age: 68 years old Clinical indication: Other: Epigastric pain, vomiting TECHNIQUE: Imaging protocol: Computed tomography of the abdomen and pelvis with contrast. 3D rendering (Not supervised by radiologist): MIP and/or 3D reconstructed images were created by the technologist. Radiation optimization: All CT scans at this facility use at least one of these dose optimization techniques: automated exposure control; mA and/or kV adjustment per patient size (includes targeted exams where dose is matched to clinical indication); or iterative reconstruction. Contrast material: ISOVUE; Contrast volume: 75 ml; Contrast route: IV; COMPARISON: CT ABDOMEN PELVIS W CON 02/03/2023 12:32 PM FINDINGS: Liver: No focal hepatic lesions. Gallbladder and biliary ducts: Gallbladder is distended without radiopaque cholelithiasis. No biliary ductal dilation. Pancreas: No peripancreatic fluid stranding. No main pancreatic ductal dilation. Spleen: No splenomegaly. Adrenal glands: The adrenal glands are normal. Kidneys and ureters: Nephrograms are symmetric. No nephrolithiasis or hydroureteronephrosis on either side. No solid lesions Stomach and bowel: There is diffuse bowel wall thickening involving a long segment of colon can be seen in the context of infectious/inflammatory colitis. Pancolonic diverticulosis noted without acute inflammatory change. Appendix: No evidence of appendicitis. Intraperitoneal space: There is no evidence of free intraperitoneal or pelvic fluid. There is no evidence of free intraperitoneal or pelvic fluid. Vasculature: The aorta demonstrates moderate atherosclerotic calcification. The aorta demonstrates severe atherosclerotic calcification and ectasia. Lymph nodes: No evidence of retroperitoneal or mesenteric lymphadenopathy. Urinary bladder: Urinary bladder is unremarkable. Reproductive: Unremarkable as visualized. Bones/joints: No acute osseous abnormality. Soft tissues: Unremarkable. IMPRESSION: There is diffuse bowel wall thickening involving a long segment of colon that can be seen in the context of infectious/inflammatory colitis. Correlate clinically.
--- NOTE | 2024-07-09 14:27 | PC.NURSE ---
PT IS AT CT
[2024-07-09] MEDS: IOPAMIDOL-370 (76%);100ML BOTTLE 70 ML IV (14:30)
[2024-07-09] MEDS: 0.9 % SODIUM CHLORIDE 50 ML VIAL IV (14:31)
[2024-07-09] MEDS: SODIUM CHLORIDE 0.9% 10ML SYR (RAD ONLY) 10 ML IV (14:31)
[2024-07-09] MEDS: CEFTRIAXONE SODIUM 2 GM in 0.9 % SODIUM CHLORIDE 100 ML IV (15:28)
--- NOTE | 2024-07-09 15:40 | PC.NURSE ---
call made to house decorator for bed placement
[2024-07-09] MEDS: RINGERS SOLUTION,LACTATED 500 ML 999 ML IV (15:44)
[2024-07-09] MEDS: MORPHINE 4MG/ML SYRINGE 4 MG IV (15:59)
--- NOTE | 2024-07-09 16:31 | PC.NURSE ---
arrived by w/c from ED
--- NOTE | 2024-07-09 16:33 | P.HP_ITS ---
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 She states her last infusion of Keytruda was 2 weeks ago and she has not had significant side effects to this in the past. She does state that she started diazepam 2 days ago which apparently she is allergic to, but does well with branded Valium. Endorses some increased shortness of breath, lower abdominal pain, but denies fever/chills, chest pain, urinary symptoms, constipation/diarrhea. Workup in the ED significant for WBC 16.3. CTA chest shows RUL pneumonia, with new LLL pulmonary embolism. She is now requiring [address] abdomen does show diffuse colitis along the long segment of the colon. She was given 2 L LR bolus, ceftriaxone. Case discussed with ED provider and decision was made to admit patient for acute on chronic hypoxic respiratory failure, sepsis secondary to pneumonia, PE, and colitis. [facility] Disclaimer: The information contained in this section may have been updated after the patient was seen, as this information can be updated by other users. Medical History Bilateral pneumonia Dizziness Crescendo angina Headache Right middle lobe pneumonia Acute exacerbation of chronic obstructive pulmonary disease GI bleed Sepsis Acute on chronic HFrEF (heart failure with reduced ejection fraction) Iron deficiency anemia Abnormal cardiovascular stress test Paroxysmal atrial fibrillation Lung collapse Angina pectoris Acute and chronic respiratory failure with hypoxia Atrial fibrillation with RVR Primary lung cancer Acute hypoxemic respiratory failure Lung cancer Orthopnea Hemoptysis Smoking greater than 30 pack years Pulmonary emphysema History of lung cancer in adulthood Hilar lymphadenopathy Nodule of right lung Stenosis of carotid artery Cancer Migraine Heart attack NSCLC of left lung Anxiety Tooth abscess Antibiotics and diflucan for vaginitis from antibiotics. F/U with Dr Sherwood Surgical History History of bladder surgery History of heart artery stent History of hysterectomy Family History Other Cancer Heart attack Hypertension Stroke Social History Smoking Status: Current every day smoker tobacco type: cigarettes packs per day: 1 alcohol intake: never substance use type: denies use current occupational status: other Travel in the last 8 weeks?: None Have you lived/traveled outside [place] in past 30 days?: No Contact w/someone who lives/traveled outside [place] past 30 days?: No Exposure to someone with infectious disease in past 14 days?: No Do you have a fever (greater than 100.4 F or 38 C)?: No Have you tested positive for COVID-19?: No Exposed to someone with COVID-19 in past 14 days?: No Do you have a sore throat?: No Do you have a cough?: No Do you have any weakness?: No Do you have any diarrhea?: No Are you experiencing any unusual bleeding?: No Do you have any muscle aches/pain?: No Do you have any abdominal pain?: No Are you experiencing loss of taste or smell?: No Other Medical History Have you received the Flu Vaccine for this season: No Have you received the Pneumonia Vaccine: No Meds Home Medications and Allergies Home Medications ?Medication ?Instructions ?Recorded ?Confirmed ?Type albuterol sulfate 90 mcg/actuation 2 puff inhalation DAILY PRN SOB 01/11/2412/24 History aerosol inhaler levalbuterol HCl 0.63 mg/3 mL 0.63 mg inhalation ONCE 02/16/24 07/09/24 History solution for nebulization sodium chloride 3 % for 1 ml inhalation DIRECTED 02/16/24 07/09/24 History nebulization promethazine 12.5 mg tablet 12.5 mg PO .4-6h PRN nausea and 03/21/24 07/09/24 Rx vomiting #30 tabs oxycodone 5 mg tablet 5 mg PO BIDP PRN Pain #60 tabs 07/07/24 07/09/24 Rx New Prescriptions to Start Prescriptions: Allergies Allergy/AdvReac Type Severity Reaction Status Date / Time diazepam AdvReac Severe Vomiting Verified 06/21/24 13:19 aspirin AdvReac Other Verified 06/21/24 13:19 Exam Data for Last 24 hours Vital signs and Labs for Last 24 Hours: Temp Pulse Resp BP Pulse Ox O2 Del Method O2 Flow Rate 98.7 F 102 H 19 143/89 H 100 Nasal Cannula 2.5 07/09/24 16:17 07/09/24 16:17 07/09/24 16:17 07/09/24 16:17 07/09/24 15:30 07/09/24 16:17 07/09/24 16:17 Laboratory Results - last 24 hr 07/09/24 11:23: WBC 16.3 H, RBC 5.00, Hgb 12.7, Hct 40.0, MCV 80.0 L, MCH 25.4 L , MCHC 31.8, RDW 19.9 H, Plt Count 627 H, MPV 9.3, Neut % (Auto) 87.6 H, Lymph % (Auto) 5.2 L, [place] % (Auto) 5.2, Eos % (Auto) 0.1, Baso % (Auto) 0.4, Neut # ( Auto) 14.2 H, Lymph # (Auto) 0.9, [place] # (Auto) 0.8, Eos # (Auto) 0.0, Baso # (Auto) 0.1, D-Dimer 0.88 H, Sodium 132 L, Potassium 4.3, Chloride 98, Carbon Dioxide 26, Anion Gap 12.3, BUN 9, Creatinine 0.40 L, Estimated Creat Clear 32, Estimated GFR 159, Est GFR ( Amer) 193, Glucose 147 H, Calcium 9.3, Total Bilirubin 0.5, AST 30, ALT 20, Alkaline Phosphatase 100, Troponin I 0.04 H, Total Protein 8.1, Albumin 4.2, Globulin 3.9 H, Albumin/Globulin Ratio 1.1, Lipase 30 I & O for Last 24 hours: Intake & Output 07/06/24 07/07/24 07/08/24 07/09/24 23:59 23:59 23:59 23:59 Weight 37.648 kg Constitutional Constitutional: no acute distress and cachectic *Routine HEENT Exam Head: Present normocephalic Eye: Present EOMI and PERRL ENT: Present mucous membranes moist *Routine Neck Exam Neck: Present supple; Absent lymphadenopathy *Routine Respiratory Exam Respiratory: Present CTA bilaterally *Routine Cardiovascular Exam Cardiovascular: Present RRR *Routine Abdominal Exam Abdominal: Present soft, normoactive bowel sounds and tenderness *Routine Rectal Exam Rectal:: deferred *Routine Genitalia Exam Genitalia:: deferred *Routine Extremities Exam Extremities: Absent cyanosis, clubbing or edema *Routine Skin Exam Skin: Present warm; Absent rash *Routine Neurological Exam Neurological: Present alert and oriented X3 Assessment and Plan *Assessment and plan (1) Sepsis: Status: Acute Category: Medical Code(s): A41.9 - Sepsis, unspecified organism (2) Pneumonia: Status: Resolved Qualifiers: Laterality: left Lung location: upper lobe of lung Pneumonia type: due to unspecified organism Qualified Code(s): J18.9 - Pneumonia, unspecified organism Category: Medical Code(s): J18.9 - Pneumonia, unspecified organism Plan Alba Melo is a 68-year-old female with a medical history significant for 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 She states her last infusion of Keytruda was 2 weeks ago and she has not had significant side effects to this in the past. She does state that she started diazepam 2 days ago which apparently she is allergic to, but does well with branded Valium. Endorses some increased shortness of breath, lower abdominal pain, but denies fever/chills, chest pain, urinary symptoms, constipation/diarrhea. Workup in the ED significant for WBC 16.3. CTA chest shows RUL pneumonia, with new LLL pulmonary embolism. She is now requiring [address] abdomen does show diffuse colitis along the long segment of the colon. She was given 2 L LR bolus, ceftriaxone. Case discussed with ED provider and decision was made to admit patient for acute on chronic hypoxic respiratory failure, sepsis secondary to pneumonia, PE, and colitis. #Sepsis #Acute on chronic hypoxic respiratory failure #RUL community-acquired pneumonia #LLL pulmonary embolism ? Presents with nausea/vomiting, shortness of breath. Initial WBC 16.3, HR 104, RR 28. Given sepsis bolus. ? CTA chest shows RUL pneumonia, with new LLL pulmonary embolism. ? Zosyn, doxycycline day 1. ? Therapeutic Lovenox for pulmonary embolism. Troponin 0.04, but downtrending. No chest pain. ? Follow-up ECHO on Thursday for RV strain, then consult cardiology. ? Pulmonology consulted, pending further recommendations. ? Follow-up procalcitonin, blood, sputum cultures. ? Requiring 4 L, baseline 2 L. Wean as tolerated. #Colitis ? Seen on CT abdomen. Having lower abdominal pain. ? Continue Zosyn. #HFmrEF #CAD s/p 2 stents #History of left subclavian artery stenosis #History of medical nonadherence ? ECHO 12/10/2023 LVEF 45%, severe hypokinesis of the basal septal, inferior septal, and anteroseptal LV chino. ? Evaluated by cardiology outpatient, has a known RCA in-stent restenosis. Planned for outpatient [facility] and left subclavian angiogram with history of left subclavian artery stenosis. ? Continue Plavix (allergic to aspirin). LDL at goal. ? Hold diuretics in the setting of sepsis. #COPD exacerbation #Current tobacco smoker ? Stable. DuoNebs as needed. ? Declines nicotine patch. #A-fib ? Currently rate controlled. Nonadherent with medications. ? Lovenox as above. #Severe protein malnutrition ? Nutrition consulted, pending recommendations. Full code DVT prophylaxis: Therapeutic Lovenox as above
[2024-07-09 16:48] LABS: Troponin I 0.03 ng/ml (0.00-0.034)
--- NOTE | 2024-07-09 16:51 | PC.NURSE ---
MED REC COMPLETED PER PATIENT. PATIENT STATES SHE HAS STOPPED TAKING A LOT OF HER MEDICATIONS. CURRENT LIST IS CORRECT PER PATIENT.
[2024-07-09] MEDS: DOXYCYCLINE HYCLATE 100 MG in 0.9 % SODIUM CHLORIDE 250 ML 166.667 MG IV (18:22)
[2024-07-09] MEDS: ENOXAPARIN 100MG/ML SYRINGE 40 MG SUBCUT (18:23)
[2024-07-09] MEDS: TAZO IV (19:59)
[2024-07-09] MEDS: [UNRECOGNIZED DRUG - OTHER] IV (19:59)
[2024-07-09] MEDS: SODIUM CHLORIDE 0.9% IV (19:59)
[2024-07-09 20:02] LABS: Microscopic, Urine URINE MICROSCOPIC (MICROSCOPIC)
[2024-07-09 20:05] LABS: Appearance,Urine CLEAR (Clear); Bilirubin,Urine Negative (Negative); Blood, Urine Negative (Negative); Color,Urine YELLOW (Yellow); Glucose,Urine (UA) Negative (Negative); Ketones,Urine Negative (Negative); Leukocyte Esterase,Urine Negative (Negative); Nitrate,Urine Negative (Negative); Protein,Urine Negative (Negative); Urobilinogen,Urine 0.2 EU/dl (0.2)
[2024-07-09 20:07] LABS: Troponin I 0.03 ng/ml (0.00-0.034)
[2024-07-09 20:19] LABS: Bacteria,Urine Trace /lpf; Squamous Epithelial Cell,Urine Occasional #/hpf (0-5); WBC,Urine Occasional #/hpf (0-3)
[2024-07-09] MEDS: LACTATED RINGERS 1000ML 1,000 ML 75 ML IV (20:45)
[2024-07-09] MEDS: OXYCODONE 5MG IMMEDIATE RELEASE TABLET 5 MG PO (23:48)
[2024-07-10] VITALS: BP 137/81; PULSE 108; RESP 16; TEMP 36.8; O2SAT 98
[2024-07-10] MEDS: ONDANSETRON 4MG/2ML VIAL 4 MG IV ×2 (00:21→04:40)
[2024-07-10] MEDS: SODIUM CHLORIDE 0.9% IV ×3 (02:43→20:07)
[2024-07-10] MEDS: TAZO IV ×3 (02:43→20:07)
[2024-07-10] MEDS: [UNRECOGNIZED DRUG - OTHER] IV ×3 (02:43→20:07)
--- NOTE | 2024-07-10 03:29 | PC.NURSE ---
Pt AOx4. Has c/o nausea without vomiting intermittently through the shift. Administered zofran prn as ordered. Pt is resting in bed with eyes open, c/o headache but refused tylenol. Respirations even and unlabored. Resting in low, locked bed with call light in reach.
[2024-07-10 04:00] VITALS: BP 150/89; PULSE 112; RESP 16; TEMP 36.9; O2SAT 98; BMI 17.1
[2024-07-10] MEDS: DOXYCYCLINE HYCLATE 100 MG in 0.9 % SODIUM CHLORIDE 250 ML 166.667 MG IV ×2 (04:38→16:22)
[2024-07-10] MEDS: ENOXAPARIN 100MG/ML SYRINGE 40 MG SUBCUT (04:56)
[2024-07-10] MEDS: MORPHINE 4MG/ML SYRINGE 4 MG IV (05:34)
[2024-07-10 08:00] VITALS: BP 92/60; PULSE 94; RESP 14; TEMP 36.6; O2SAT 97
[2024-07-10 08:07] LABS: Basophils # 0.1 K/mm3 (0-0.2); Basophils % 0.4 % (0.1-2.0); Eosinophils % 0.1 % (0.1-12.0); Hematocrit 33.4 % (37.0-47.0); Immature Granulocytes # 0.22 10^3uL; Immature Granulocytes % 1.6 %; Lymphocytes # 0.6 K/mm3 (0.7-4.5); Lymphocytes % 3.9 % (10-50); Mean Corpuscular HGB Conc 31.7 g/dL (31.8-35.4); Mean Corpuscular Hemoglobin 25.4 pg (27.0-31.2); Mean Corpuscular Volume 79.9 fl (81-99); Mean Platelet Volume 9.5 fl (7.4-10.4); Monocytes % 7.3 % (1.7-9.3); Neutrophils # 12.2 K/mm3 (1.8-7.8); Neutrophils % 86.7 % (37.0-80.0); Nucleated Red Blood Cells # 0 10^3/uL; Nucleated Red Blood Cells % 0 %; Platelet Count 497 K/mm3 (142-424); Red Blood Count 4.18 M/mm3 (4.20-5.40); Red Cell Distribution Width 18.8 % (11.5-17.5); Red Cell Distribution Width-SD 55.1 fL; White Blood Count 14.1 K/mm3 (4.8-10.8)
[2024-07-10 08:22] LABS: Hemoglobin 10.5 g/dL (12.2-16.2)
[2024-07-10 08:28] LABS: Chloride 98 mmol/L (98-107); Potassium 3.8 mmoL/L (3.5-5.1); Sodium 128 mmol/L (136-145)
[2024-07-10 08:31] LABS: Alanine Aminotransferase 12 U/L (12-78); Alkaline Phosphatase 87 U/L (38-126); Anion Gap 7.8 mEq/L (5-15); Aspartate Amino Transferase 18 U/L (14-36); Bilirubin,Total 0.2 mg/dl (0.2-1.3); Blood Urea Nitrogen 9 mg/dl (7-17); Calcium 8.2 mg/dl (8.4-10.2); Carbon Dioxide 26 mmol/L (22.0-30.0); Creatinine Clearance Estimated 34 mL/min (50-200); Estimated Glomerular Filt Rate 100 ml/min (>60); GFR (African American) 121 ML/MIN (>60); Globulin 3.1 g/dL (1.3-3.2); Glucose 115 mg/dl (74-100); Magnesium 1.4 mg/dl (1.6-2.3); Total Protein,Serum 6.1 g/dl (6.3-8.2)
[2024-07-10 12:00] VITALS: BP 104/62; PULSE 90; RESP 16; TEMP 37; O2SAT 96
[2024-07-10] MEDS: MAGNESIUM SULFATE IN WATER 2 GM/50 ML PIGGYBACK IV ×3 (12:00→13:50)
--- NOTE | 2024-07-10 14:40 | PC.NURSE ---
PT IS RESTING IN BED. ALERT AND ORIENTED X4. TOLERATING FULL LIQUIDS. AMBULATES TO THE BATHROOM WITH 1 ASSIST. O2 SATURATION HAS MAINTAINED 94-97% ON 2.5 L NC. LUNG SOUNDS DIMINISHED. ABDOMEN SOFT/NON TENDER WITH ACTIVE BOWEL SOUNDS. PT REFUSED PLAVIX THIS MORNING. WILL CONTINUE TO MONITOR.
[2024-07-10] MEDS: AMIODARONE 200MG TABLET 200 MG PO (15:28)
[2024-07-10] MEDS: LACTATED RINGERS 1000ML 1,000 ML 75 ML IV (15:34)
[2024-07-10 16:00] VITALS: BP 102/60; PULSE 87; RESP 17; TEMP 36.8; O2SAT 98
--- NOTE | 2024-07-10 18:36 | P.PN_ITS ---
Subjective *Date: 07/10/24 *Time: 18:36 Exam Data for Last 24 hours Vital signs and Labs for Last 24 Hours: Temp Pulse Resp BP Pulse Ox O2 Del Method O2 Flow Rate 98.3 F 87 17 102/60 L 98 Nasal Cannula 2.5 07/10/24 16:00 07/10/24 16:00 07/10/24 16:00 07/10/24 16:00 07/10/24 16:00 07/10/24 18:22 07/10/24 18:22 Laboratory Results - last 24 hr 07/09/24 19:40: Troponin I 0.03, Urine Color Yellow, Urine Appearance Clear, Urine pH 8.0, Ur Specific [place] 1.010, Urine Protein Negative, Urine Glucose (UA) Negative, Urine Ketones Negative, Urine Blood Negative, Urine Nitrate Negative, Urine Bilirubin Negative, Urine Urobilinogen 0.2, Ur Leukocyte Esterase Negative, Urine RBC None, Urine WBC Occasional, Ur Squamous Epith Cells Occasional, Urine Bacteria Trace 07/10/24 06:52: WBC 14.1 H, RBC 4.18 L, Hgb 10.5 L D, Hct 33.4 L, MCV 79.9 L, MCH 25.4 L, MCHC 31.7 L, RDW 18.8 H, Plt Count 497 H, MPV 9.5, Neut % (Auto) 86.7 H, Lymph % (Auto) 3.9 L, [place] % (Auto) 7.3, Eos % (Auto) 0.1, Baso % (Auto) 0.4, Neut # (Auto) 12.2 H, Lymph # (Auto) 0.6 L, [place] # (Auto) 1.0, Eos # (Auto) 0.0, Baso # (Auto) 0.1, Sodium 128 L, Potassium 3.8, Chloride 98, Carbon Dioxide 26, Anion Gap 7.8, BUN 9, Creatinine 0.60 D, Estimated Creat Clear 34, Estimated GFR 100, Est GFR ( Amer) 121 D, Glucose 115 H D, Calcium 8.2 L , Magnesium 1.4 L, Total Bilirubin 0.2, AST 18 D, ALT 12 D, Alkaline Phosphatase 87, Total Protein 6.1 L, Albumin 3.0 L D, Globulin 3.1, Albumin/Globulin Ratio 1.0 L I & O for Last 24 hours: Intake & Output 07/07/24 07/08/24 07/09/24 07/10/24 23:59 23:59 23:59 23:59 Intake Total 1430 / 1430 Output Total 300 / 300 400 / 400 Balance -300 / -300 1030 / 1030 Weight 38.9 kg 39.5 kg Microbiology Reports for the Last 24 Hours: Microbiology 07/09/24 15:29 Blood Blood Culture - Preliminary NO GROWTH AFTER 24 HOURS 07/09/24 15:30 Blood Blood Culture - Preliminary NO GROWTH AFTER 24 HOURS Constitutional Constitutional: no acute distress and cachectic *Routine HEENT Exam Head: Present normocephalic Eye: Present EOMI and PERRL ENT: Present mucous membranes moist *Routine Neck Exam Neck: Present supple; Absent lymphadenopathy *Routine Respiratory Exam Respiratory: Present CTA bilaterally *Routine Cardiovascular Exam Cardiovascular: Present RRR *Routine Abdominal Exam Abdominal: Present soft and normoactive bowel sounds; Absent tenderness *Routine Extremities Exam Extremities: Absent cyanosis, clubbing or edema *Routine Skin Exam Skin: Present warm; Absent rash *Routine Neurological Exam Neurological: Present alert and oriented X3 Assessment and Plan *Assessment and plan (1) Sepsis: Status: Acute Category: Medical Code(s): A41.9 - Sepsis, unspecified organism (2) Pneumonia: Status: Resolved Qualifiers: Laterality: left Lung location: upper lobe of lung Pneumonia type: due to unspecified organism Qualified Code(s): J18.9 - Pneumonia, unspecified or ganism Category: Medical Code(s): J18.9 - Pneumonia, unspecified organism Plan Alba Melo is a 68-year-old female with a medical history significant for 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 She states her last infusion of Keytruda was 2 weeks ago and she has not had significant side effects to this in the past. She does state that she started diazepam 2 days ago which apparently she is allergic to, but does well with branded Valium. Endorses some increased shortness of breath, lower abdominal pain, but denies fever/chills, chest pain, urinary symptoms, constipation/diarrhea. Workup in the ED significant for WBC 16.3. CTA chest shows RUL pneumonia, with new LLL pulmonary embolism. She is now requiring [address] abdomen does show diffuse colitis along the long segment of the colon. She was given 2 L LR bolus, ceftriaxone. Case discussed with ED provider and ashwini cipriano was made to admit patient for acute on chronic hypoxic respiratory failure, sepsis secondary to pneumonia, PE, and colitis. #Sepsis #Acute on chronic hypoxic respiratory failure #RUL community-acquired pneumonia #LLL pulmonary embolism ? Presents with nausea/vomiting, shortness of breath. Initial WBC 16.3, HR 104, RR 28. Given sepsis bolus. ? CTA chest shows RUL pneumonia, with new LLL pulmonary embolism. ? Patient feels significantly better today, back to baseline 2.5 L nasal cannula. ? Continue Zosyn, doxycycline day 2. ? Therapeutic Lovenox for pulmonary embolism. Troponin 0.04, but downtrending. No chest pain. ? Follow-up ECHO on Thursday for RV strain, then consult cardiology if present. ? Follow-up procalcitonin, blood, sputum cultures. #Colitis ? Seen on CT abdomen. Initially had lower abdominal pain. Significantly improved after starting Zosyn. ? Continue Zosyn day 2/5. #HFmrEF #CAD s/p 2 stents #History of left subclavian artery stenosis #History of medical nonadherence ? ECHO 12/10/2023 LVEF 45%, severe hypokinesis of the basal septal, inferior septal, and anteroseptal LV chino. ? Evaluated by cardiology outpatient, has a known RCA in-stent restenosis. Planned for outpatient [facility] and left subclavian angiogram with history of left subclavian artery stenosis. ? Continue Plavix (allergic to aspirin). LDL at goal. ? Hold diuretics in the setting of sepsis. ? Cardiology consulted, pending further recommendations. #COPD exacerbation #Current tobacco smoker ? Stable. DuoNebs as needed. ? Declines nicotine patch. #A-fib ? Currently rate controlled. Nonadherent with medications. ? Lovenox as above. #Severe protein malnutrition ? Nutrition consulted, pending recommendations. Full code DVT prophylaxis: Therapeutic Lovenox as above
[2024-07-10 20:00] VITALS: BP 110/80; PULSE 92; RESP 16; TEMP 36.8; O2SAT 97
[2024-07-10] MEDS: ENOXAPARIN 40MG/0.4ML SYRINGE 40 MG SUBCUT (20:07)
--- NOTE | 2024-07-10 20:42 | PC.NURSE ---
patient declined to take her megestrol and stated that may have been what caused me to have a blood clot, I'm not taking that . patient stated she absolutely does not want to be bothered between the hours of 10pm-7am due to not being able to sleep last night. Patient was educated that I will have to see her before I handoff shift report and that she has important abx due between that time frame. patient verbalized she was okay with me bringing in her medications, but she doesn't want someone in there frequently.
[2024-07-10] MEDS: OXYCODONE 5MG IMMEDIATE RELEASE TABLET 5 MG PO (21:24)
[2024-07-11] MEDS: [UNRECOGNIZED DRUG - OTHER] IV ×2 (02:34→11:36)
[2024-07-11] MEDS: TAZO IV ×2 (02:34→11:36)
[2024-07-11] MEDS: SODIUM CHLORIDE 0.9% IV ×2 (02:34→11:36)
[2024-07-11] MEDS: OXYCODONE 5MG IMMEDIATE RELEASE TABLET 5 MG PO ×2 (03:31→08:15)
[2024-07-11 04:00] VITALS: BP 111/52; PULSE 92; RESP 16; TEMP 36.6; O2SAT 97; BMI 17.2
[2024-07-11] MEDS: DOXYCYCLINE HYCLATE 100 MG in 0.9 % SODIUM CHLORIDE 250 ML 166.667 MG IV (05:26)
[2024-07-11 06:42] LABS: Basophils % 0.3 % (0.1-2.0); Eosinophils # 0.1 Kmm3 (0.0-0.4); Eosinophils % 1.2 % (0.1-12.0); Hematocrit 31.1 % (37.0-47.0); Hemoglobin 9.7 g/dL (12.2-16.2); Immature Granulocytes # 0.18 10^3uL; Immature Granulocytes % 1.9 %; Lymphocytes # 0.6 K/mm3 (0.7-4.5); Lymphocytes % 6.6 % (10-50); Mean Corpuscular HGB Conc 31.2 g/dL (31.8-35.4); Mean Corpuscular Hemoglobin 25.5 pg (27.0-31.2); Mean Corpuscular Volume 81.6 fl (81-99); Mean Platelet Volume 9.4 fl (7.4-10.4); Monocytes # 1.1 K/mm3 (0.1-1.0); Monocytes % 11.5 % (1.7-9.3); Neutrophils # 7.3 K/mm3 (1.8-7.8); Neutrophils % 78.5 % (37.0-80.0); Nucleated Red Blood Cells # 0 10^3/uL; Nucleated Red Blood Cells % 0 %; Platelet Count 409 K/mm3 (142-424); Red Blood Count 3.81 M/mm3 (4.20-5.40); Red Cell Distribution Width 19.5 % (11.5-17.5); Red Cell Distribution Width-SD 58.3 fL; White Blood Count 9.3 K/mm3 (4.8-10.8)
[2024-07-11 06:44] LABS: Alanine Aminotransferase 11 U/L (12-78); Albumin Level 2.9 g/dl (3.5-5.0); Alkaline Phosphatase 83 U/L (38-126); Anion Gap 4.8 mEq/L (5-15); Aspartate Amino Transferase 16 U/L (14-36); Bilirubin,Total 0.2 mg/dl (0.2-1.3); Blood Urea Nitrogen 14 mg/dl (7-17); Calcium 7.9 mg/dl (8.4-10.2); Carbon Dioxide 29 mmol/L (22.0-30.0); Chloride 104 mmol/L (98-107); Creatinine Clearance Estimated 34 mL/min (50-200); Estimated Glomerular Filt Rate 100 ml/min (>60); GFR (African American) 121 ML/MIN (>60); Globulin 2.8 g/dL (1.3-3.2); Glucose 143 mg/dl (74-100); Magnesium 2.1 mg/dl (1.6-2.3); Potassium 3.8 mmoL/L (3.5-5.1); Sodium 134 mmol/L (136-145); Total Protein,Serum 5.7 g/dl (6.3-8.2)
[2024-07-11 07:22] LABS: Procalcitonin 0.066 ng/mL (0.0-2.0)
[2024-07-11 08:00] VITALS: BP 125/75; PULSE 107; RESP 25; TEMP 36.8; O2SAT 95
[2024-07-11] MEDS: ENOXAPARIN 40MG/0.4ML SYRINGE 40 MG SUBCUT (08:11)
[2024-07-11] MEDS: AMIODARONE 200MG TABLET 200 MG PO (08:11)
--- NOTE | 2024-07-11 11:42 | EXP.CARD.CON ---
History of Present Illness History of Present Illness Consult date: 07/11/24 Consult reason: known to you Chief complaint: n/v weakness History of present illness: 68-year-old white female established patient of our office with low body weight of 87 pounds, BMI 17. She has history of CAD with stenting in 2013, med management heart cath in 2014 and 2022 as well as subclavian stenosis and a history of right carotid stent placement. She has history of EF 45%, PAF, and lung cancer followed by Dr. Gu, and ongoing tob use. Historically noncompliant with follow-up and medications. Supposed to be on DAPT therapy due to her Gabi vascular disease but states she has stopped these medicines. Has also been recommended to take OAC for DVT prophylaxis which she has refused to take. Presented to the emergency room here on July 09 complaining of nausea vomiting and weakness. White blood cell count 16,000, diagnosed with right upper lobe pneumonia, new left lower lobe pulmonary embolism, diffuse colitis. She admits to me she is willing to now take OAC but declines DAPT therapy despite risks. [facility] Disclaimer: The information contained in this section may have been updated after the patient was seen, as this information can be updated by other users. Medical History Bilateral pneumonia Dizziness Crescendo angina Headache Right middle lobe pneumonia Acute exacerbation of chronic obstructive pulmonary disease GI bleed Sepsis Acute on chronic HFrEF (heart failure with reduced ejection fraction) Iron deficiency anemia Abnormal cardiovascular stress test Paroxysmal atrial fibrillation Lung collapse Angina pectoris Acute and chronic respiratory failure with hypoxia Atrial fibrillation with RVR Primary lung cancer Acute hypoxemic respiratory failure Lung cancer Orthopnea Hemoptysis Smoking greater than 30 pack years Pulmonary emphysema History of lung cancer in adulthood Hilar lymphadenopathy Nodule of right lung Stenosis of carotid artery Cancer Migraine Heart attack NSCLC of left lung Anxiety Tooth abscess Surgical History History of bladder surgery History of heart artery stent History of hysterectomy Family History Other Cancer Heart attack Hypertension Stroke Social History Smoking Status: Current every day smoker tobacco type: cigarettes packs per day: 1 alcohol intake: never substance use type: denies use current occupational status: other Travel in the last 8 weeks?: None Review of Systems Constitutional Constitutional: Reports fatigue and Reports weakness Eyes Eyes: Denies loss of vision ENT Ears, Nose, Mouth, and Throat: Denies hearing loss and Denies vertigo *Cardiovascular Cardiovascular: Denies chest pain, Denies dyspnea and Denies syncope *Respiratory Respiratory: Denies cough and Denies dyspnea *Gastrointestinal Gastrointestinal: Denies change in stool character, Reports nausea and Reports vomiting *Musculoskeletal Musculoskeletal: Denies muscle weakness Integumentary/Breasts Skin/Breast: Denies changing lesions *Neurologic Neurologic: Denies loss of vision, Denies syncope, Denies vertigo and Reports weakness Endocrine Endocrine: Reports fatigue Exam Data for Last 24 hours Vital signs and Labs for Last 24 Hours: Temp Pulse Resp BP Pulse Ox O2 Del Method O2 Flow Rate 98.3 F 107 H 25 H 125/75 95 Nasal Cannula 2.5 07/11/24 08:00 07/11/24 08:00 07/11/24 08:00 07/11/24 08:00 07/11/24 08:00 07/11/24 08:00 07/11/24 08:00 Laboratory Results - last 24 hr 07/11/24 05:50: WBC 9.3 D, RBC 3.81 L, Hgb 9.7 L, Hct 31.1 L, MCV 81.6, MCH 25.5 L, MCHC 31.2 L, RDW 19.5 H, Plt Count 409, MPV 9.4, Neut % (Auto) 78.5, Lymph % (Auto) 6.6 L, Will % (Auto) 11.5 H, Eos % (Auto) 1.2, Baso % (Auto) 0.3, Neut # (Auto) 7.3, Lymph # (Auto) 0.6 L, Will # (Auto) 1.1 H, Eos # (Auto) 0.1, Baso # (Auto) 0.0, Sodium 134 L, Potassium 3.8, Chloride 104, Carbon Dioxide 29, Anion Gap 4.8 L, BUN 14 D, Creatinine 0.60, Estimated Creat Clear 34, Estimated GFR 100, Est GFR ( Amer) 121, Glucose 143 H D, Calcium 7.9 L, Magnesium 2.1 D, Total Bilirubin 0.2, AST 16, ALT 11 L, Alkaline Phosphatase 83, Total Protein 5.7 L, Albumin 2.9 L, Globulin 2.8, Albumin/Globulin Ratio 1.0 L, Procalcitonin 0.066 I & O for Last 24 hours: Intake & Output 07/08/24 07/09/24 07/10/24 07/11/24 23:59 23:59 23:59 23:59 Intake Total 1960 / 1960 725 / 725 Output Total 300 / 300 400 / 400 0 / 0 Balance -300 / -300 1560 / 1560 725 / 725 Weight 85 lb 12.157 oz 87 lb 1.321 oz 87 lb 8.376 oz Microbiology Reports for the Last 24 Hours: Microbiology 07/09/24 15:29 Blood Blood Culture - Preliminary NO GROWTH AFTER 24 HOURS 07/09/24 15:30 Blood Blood Culture - Preliminary NO GROWTH AFTER 24 HOURS Constitutional Constitutional: no acute distress, thin and cooperative *Routine HEENT Exam Eye: Present PERRL *Routine Respiratory Exam Respiratory: Present CTA bilaterally; Absent accessory muscle use, wheezes or crackles *Routine Cardiovascular Exam Cardiovascular: Present RRR, Normal S1, Normal S2 and murmur; Absent gallop or rubs *Routine Abdominal Exam Abdominal: Present soft; Absent tenderness *Routine Extremities Exam Extremities: Present pulses intact; Absent cyanosis or edema *Routine Skin Exam Skin: Present intact; Absent erythema or wounds *Routine Neurological Exam Neurological: Present alert and oriented X3 Routine Psychiatric Exam Psychiatric: Present cooperative Meds Home Medications and Allergies Home Medications ?Medication ?Instructions ?Recorded ?Confirmed ?Type oxycodone 5 mg tablet 5 mg PO BIDP PRN Pain #60 tabs 07/07/24 07/09/24 Rx amiodarone 200 mg tablet 200 mg PO DAILY 07/10/24 07/10/24 History megestrol 400 mg/10 mL (40 mg/mL) 400 mg PO BID 07/10/24 07/10/24 History oral suspension temazepam 7.5 mg capsule 7.5 mg PO HSP PRN Sleep 07/10/24 07/10/24 History New Prescriptions to Start Prescriptions: Allergies Allergy/AdvReac Type Severity Reaction Status Date / Time diazepam AdvReac Severe Vomiting Verified 06/21/24 13:19 aspirin AdvReac Other Verified 06/21/24 13:19 Assessment and Plan *Assessment and plan (1) Acute pulmonary embolism: Status: Acute Category: Medical Code(s): I26.99 - Other pulmonary embolism without acute cor pulmonale (2) Sepsis: Status: Acute Category: Medical Code(s): A41.9 - Sepsis, unspecified organism (3) Acute on chronic HFrEF (heart failure with reduced ejection fraction): Status: Acute Category: Medical Code(s): I50.23 - Acute on chronic systolic (congestive) heart failure (4) COPD with acute exacerbation: Status: Acute Category: Medical Code(s): J44.1 - Chronic obstructive pulmonary disease with (acute) exacerbation (5) CAD (coronary atherosclerotic disease): Status: Acute Qualifiers: Associated angina: without angina Coronary Disease-Associated Artery/Lesion type: [place] artery [place] vs. transplanted heart: [place] heart Qualified Code(s): I25.10 - Atherosclerotic heart disease of [place] coronary artery without angina pectoris Category: Medical Code(s): I25.10 - Atherosclerotic heart disease of [place] coronary artery without angina pectoris Plan Acute LLL PE - new dx this admission with CT showing subocclusive segmental left lower lobe PE - likely secondary to her lung cancer - recommend tx dose Eliquis for 1 year then 2.5mg maintenance dose buttermaker due to risk of recurrance ASCVD - hx of CAD, Subclavian dz, and carotid dz - no ACS this admission - noncompliant with DAPT despite risks - noncompliant with statin, will try resuming here - DC tob PAF - pt now agreeable to OAC due to PE - cont home dose Amio HFmrEF - EF 45% - likely mixed etiology - not a candidate for further ischemic intervention due to med noncompliance - pt refuses GDMT - does not appear vol overloaded - CT chest - no effusion/edema - ECHO - pending RUL PNA - antibiotics per primary service Squamous cell carcinoma of right lung - Follows with Dr. Gu, oncology Malnourishment - BMI 17, weight 87lbs - pt tried megestrol outpatient and states it helped but she thinks it's what caused her PE so she won't take it any more 07/11 CV summary: Patient is complex with numerous serious comorbidities complicated by medical noncompliance. Overall currently appears CV stable. Recommend changing Lovenox and Plavix to Eliquis after thorough discussion with patient.ECHO is
--- NOTE | 2024-07-11 12:28 | P.DS_ITS ---
General Admission date:: 07/09/24 HPI HPI HPI: Alba Melo is a 68-year-old female with a medical history significant for 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 She states her last infusion of Keytruda was 2 weeks ago and she has not had s ignificant side effects to this in the past. She does state that she started diazepam 2 days ago which apparently she is allergic to, but does well with branded Valium. Endorses some increased shortness of breath, lower abdominal pain, but denies fever/chills, chest pain, urinary symptoms, constipation/diarrhea. Workup in the ED significant for WBC 16.3. CTA chest shows RUL pneumonia, with new LLL pulmonary embolism. She is now requiring [address] abdomen does show diffuse colitis along the long segment of the colon. She was given 2 L LR bolus, ceftriaxone. Case discussed with ED provider and decision was made to admit patient for acute on chronic hypoxic respiratory failure, sepsis secondary to pneumonia, PE, and colitis. Hospital Course Hospital Course Hospital Course: Alba Melo is a 68-year-old female with a medical history significant for 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 She states her last infusion of Keytruda was 2 weeks ago and she has not had significant side effects to this in the past. She does state that she started diazepam 2 days ago which apparently she is allergic to, but does well with branded Valium. Endorses some increased shortness of breath, lower abdominal pain, but denies fever/chills, chest pain, urinary symptoms, constipation/diarrhea. Workup in the ED significant for WBC 16.3. CTA chest shows RUL pneumonia, with new LLL pulmonary embolism. She is now requiring [address] abdomen does show diffuse colitis along the long segment of the colon. She was given 2 L LR bolus, ceftriaxone. Case discussed with ED provider and decision was made to admit patient for acute on chronic hypoxic respiratory failure, sepsis secondary to pneumonia, PE, and colitis. #Sepsis #Acute on chronic hypoxic respiratory failure #RUL community-acquired pneumonia #LLL pulmonary embolism ? Presents with nausea/vomiting, shortness of breath. Initial WBC 16.3, HR 104, RR 28. Given sepsis bolus. ? CTA chest shows RUL pneumonia, with new LLL pulmonary embolism. ? Clinically improved with IV antibiotics including Zosyn, doxycycline, and therapeutic Lovenox. Patient feels significantly better, back to baseline 2.5 L nasal cannula. - Troponin 0.04, but downtrending. No chest pain. Likeky from demand ischemia. Cardiology consulted, no plan for LHC due to noncompliance. ? ECHO obtained, pending report. Since patient is stable and asymptomatic, will refer with close follow-up with cardiology. ? Discharged with Augmentin, doxycycline for 4 more days, Eliquis starter pack. #Colitis ? Seen on CT abdomen. Initially had lower abdominal pain. Significantly improved after starting Zosyn. ? Discharged with Augmentin as above. #Squamous cell carcinoma of right lung $COPD - Follows with Dr. Gu, oncology. On Keytruda, last fusion about 2 weeks ago. ? Continue regular follow-ups with oncology. - Started Anoro Ellipta. #HFmrEF #CAD s/p 2 stents #History of left subclavian artery stenosis #History of medical nonadherence ? ECHO 12/10/2023 LVEF 45%, severe hypokinesis of the basal septal, inferior septal, and anteroseptal LV [place]. ? Evaluated by cardiology outpatient, has a known RCA in-stent restenosis. Planned for outpatient LHC and left subclavian angiogram with history of left subclavian artery stenosis. ? Continue Plavix (allergic to aspirin). LDL at goal. ? Cardiology consulted, no plan for LHC due to noncompliance. #COPD #Current tobacco smoker ? Stable. DuoNebs as needed. ? Declines nicotine patch. #A-fib ? Currently rate controlled. Nonadherent with medications. ? Eliquis as above. #Severe protein malnutrition ? Nutrition consulted, provided counseling and supplements. Total time spent on discharge: 32 minutes on chart review, counseling, documentation, and direct care with patient. Exam Data for Last 24 hours Vital signs and Labs for Last 24 Hours: Temp Pulse Resp BP Pulse Ox O2 Del Method O2 Flow Rate 98.3 F 107 H 25 H 125/75 95 Nasal Cannula 2.5 07/11/24 08:00 07/11/24 08:00 07/11/24 08:00 07/11/24 08:00 07/11/24 08:00 07/11/24 08:00 07/11/24 08:00 Laboratory Results - last 24 hr 07/11/24 05:50: WBC 9.3 D, RBC 3.81 L, Hgb 9.7 L, Hct 31.1 L, MCV 81.6, MCH 25.5 L, MCHC 31.2 L, RDW 19.5 H, Plt Count 409, MPV 9.4, Neut % (Auto) 78.5, Lymph % (Auto) 6.6 L, [place] % (Auto) 11.5 H, Eos % (Auto) 1.2, Baso % (Auto) 0.3, Neut # (Auto) 7.3, Lymph # (Auto) 0.6 L, [place] # (Auto) 1.1 H, Eos # (Auto) 0.1, Baso # (Auto) 0.0, Sodium 134 L, Potassium 3.8, Chloride 104, Carbon Dioxide 29, Anion Gap 4.8 L, BUN 14 D, Creatinine 0.60, Estimated Creat Clear 34, Estimated GFR 100, Est GFR ( Amer) 121, Glucose 143 H D, Calcium 7.9 L, Magnesium 2.1 D, Total Bilirubin 0.2, AST 16, ALT 11 L, Alkaline Phosphatase 83, Total Protein 5.7 L, Albumin 2.9 L, Globulin 2.8, Albumin/Globulin Ratio 1.0 L, Procalcitonin 0.066 I & O for Last 24 hours: Intake & Output 07/08/24 07/09/24 07/10/24 07/11/24 23:59 23:59 23:59 23:59 Intake Total 1960 / 1960 725 / 725 Output Total 300 / 300 400 / 400 0 / 0 Balance -300 / -300 1560 / 1560 725 / 725 Weight 38.9 kg 39.5 kg 39.7 kg Microbiology Reports for the Last 24 Hours: Microbiology 07/09/24 15:29 Blood Blood Culture - Preliminary NO GROWTH AFTER 24 HOURS 07/09/24 15:30 Blood Blood Culture - Preliminary NO GROWTH AFTER 24 HOURS Constitutional Constitutional: no acute distress and cachectic *Routine HEENT Exam Head: Present normocephalic Eye: Present EOMI and PERRL ENT: Present mucous membranes moist *Routine Neck Exam Neck: Present supple; Absent lymphadenopathy *Routine Respiratory Exam Respiratory: Present CTA bilaterally *Routine Cardiovascular Exam Cardiovascular: Present RRR *Routine Abdominal Exam Abdominal: Present soft and normoactive bowel sounds; Absent tenderness *Routine Extremities Exam Extremities: Absent cyanosis, clubbing or edema *Routine Skin Exam Skin: Present warm; Absent rash *Routine Neurological Exam Neurological: Present alert and oriented X3 Results Data Completed and Pending Labs on day of discharge: Labs from last 24 hours 07/11/24 05:50 WBC 9.3 D RBC 3.81 L Hgb 9.7 L Hct 31.1 L MCV 81.6 MCH 25.5 L MCHC 31.2 L RDW 19.5 H Plt Count 409 MPV 9.4 Neut % (Auto) 78.5 Lymph % (Auto) 6.6 L [place] % (Auto) 11.5 H Eos % (Auto) 1.2 Baso % (Auto) 0.3 Neut # (Auto) 7.3 Lymph # (Auto) 0.6 L [place] # (Auto) 1.1 H Eos # (Auto) 0.1 Baso # (Auto) 0.0 Sodium 134 L Potassium 3.8 Chloride 104 Carbon Dioxide 29 Anion Gap 4.8 L BUN 14 D Creatinine 0.60 Estimated Creat Clear 34 Estimated GFR 100 Est GFR ( Amer) 121 Glucose 143 H D Calcium 7.9 L Magnesium 2.1 D Total Bilirubin 0.2 AST 16 ALT 11 L Alkaline Phosphatase 83 Total Protein 5.7 L Albumin 2.9 L Globulin 2.8 Albumin/Globulin Ratio 1.0 L Procalcitonin 0.066 Preliminary micro results at discharge 07/09/24 15:29 Blood Culture - Preliminary Blood NO GROWTH AFTER 24 HOURS 07/09/24 15:30 Blood Culture - Preliminary Blood NO GROWTH AFTER 24 HOURS DS: Diagnosis Discharge Diagnosis (1) Acute pulmonary embolism: Status: Acute Code(s): I26.99 - Other pulmonary embolism without acute cor pulmonale (2) Sepsis: Status: Acute Code(s): A41.9 - Sepsis, unspecified organism (3) Acute on chronic HFrEF (heart failure with reduced ejection fraction): Status: Acute Code(s): I50.23 - Acute on chronic systolic (congestive) heart failure (4) COPD with acute exacerbation: Status: Acute Code(s): J44.1 - Chronic obstructive pulmonary disease with (acute) exacerbation (5) CAD (coronary atherosclerotic disease): Status: Acute Code(s): I25.10 - Atherosclerotic heart disease of [place] coronary artery without angina pectoris Qualifiers: Associated angina: without angina Coronary Disease-Associated Artery/Lesion type: [place] artery [place] vs. transplanted heart: [place] heart Qualified Code(s): I25.10 - Atherosclerotic heart disease of [place] coronary artery without angina pectoris Meds Home Medications and Allergies Home Medications ?Medication ?Instructions ?Recorded ?Confirmed ?Type oxycodone 5 mg tablet 5 mg PO BIDP PRN Pain #60 ta bs 07/07/24 07/09/24 Rx amiodarone 200 mg tablet 200 mg PO DAILY 07/10/2401/24 History megestrol 400 mg/10 mL (40 mg/mL) 400 mg PO BID 07/10/24 History oral suspension temazepam 7.5 mg capsule 7.5 mg PO HSP PRN Sleep 06/3007/10/24 History amoxicillin 500 mg-potassium 1 tab PO TID 4 days #12 t abs 07/11/24 Rx clavulanate 125 mg tablet (Augmentin) apixaban 5 mg (74 tabs) tablets in 5 mg PO BID #74 tab s 07/11/24 Rx a dose pack (Eliquis DVT-PE Treat 30D Start) doxycycline hyclate 100 mg tablet 100 mg PO BID 4 days #8 tabs 07/11/24 Rx ondansetron HCl 4 mg tablet 4 mg PO Q8H PRN nausea and 07/11/24 Rx vomiting #20 tabs umeclidinium 62.5 mcg-vilanterol 1 inh inhalation CARINA Y 30 days #60 07/11/24 Rx 25 mcg/actuation powdr for ea inhalation (Anoro Ellipta) New Prescriptions to Start Prescriptions: amoxicillin-pot clavulanate [Augmentin] Kam Drake apixaban [Eliquis DVT-PE Treat 30D Start] Kam Drake doxycycline hyclate Kam Drake ondansetron HCl Kam Drake umeclidinium-vilanterol [Anoro Ellipta] Kam Drake Allergies Allergy/AdvReac Type Severity Reaction Status Date / Time diazepam AdvReac Severe Vomiting Verified 06/21/24 13:19 aspirin AdvReac Other Verified 06/21/24 13:19 Discharge Plan Disposition Patient Disposition: Home, Self-Care Condition: Fair Discharge Order Discharge Orders: Discharge Order (Routine); Ordered 07/11/24 Ordered By: Kam Drake Follow up Plan Follow up with: Mustapha rPather PA [Physician Addictions Counselor, Cardiology] - 07/26/24 1:00 pm Leonel Gu MD [Staff Physician, Oncology] - 07/13/24 1:30 pm Yoli Prather PA [Referring, Medical] - 07/14/24 12:00 pm Prescriptions/Medication Reconciliation: New umeclidinium-vilanterol [Anoro Ellipta] 62.5-25 mcg/actuation Blister With Device 1 inh inhalation DAILY 30 Days Qty: 60 0RF amoxicillin-pot clavulanate [Augmentin] 500-125 mg tablet 1 tab PO TID 4 Days Qty: 12 0RF doxycycline hyclate 100 mg tablet 100 mg PO BID 4 Days Qty: 8 0RF Eliquis DVT-PE Treat 30D Start 5 mg (74 tabs) tablets,dose pack 5 mg PO BID Qty: 74 0RF ondansetron HCl 4 mg tablet 4 mg PO Q8H PRN (Reason: nausea and vomiting) Qty: 20 0RF Continued oxycodone 5 mg tablet 5 mg PO BIDP PRN (Reason: Pain) Qty: 60 0RF megestrol 400 mg/10 mL (40 mg/mL) suspension 400 mg PO BID Patient Comments: TAKE 10 ML BY MOUTH TWICE DAILY amiodarone 200 mg tablet 200 mg PO DAILY Patient Comments: TAKE 1 TABLET BY MOUTH ONCE DAILY temazepam 7.5 mg capsule 7.5 mg PO HSP PRN (Reason: Sleep) Patient Comments: TAKE 1 CAPSULE BY MOUTH AT BEDTIME NIGHTLY NEEDED FOR INSOMNIA Problem Reconciliation Problems Reviewed?: Yes Patient Discharge Instructions Patient Instructions: Pneumonia--Adult, DI for Pulmonary Embolism, Nausea and V omiting-Adult, Stop Light Pneumonia Print Language: [place] Providers Primary Care Provider: Mk Reagan Admit Provider: Kam Drake Attending Provider: Kam Drake
--- NOTE | 2024-07-11 12:29 | CA_ITS ---
APPROVED REPORT EXAM: Comprehensive 2D, Doppler, and color-flow Echocardiogram Admissions Officer: Lucía Mccarthy RVT Ht: 4 ft 11 in Wt: 87lbs BSA: 1.30 BP: 125/75 mmHg Indications: PE,A-FIB,MILD ,CAD,LUNG CA,PNEUMONIA,CM,COPD 2D Dimensions LA Volume 45.90 mL LA Volume Index 35.31 mL/m2 (M/F) 16-34 M-Mode Dimensions RVDd 3.10 cm (0.9-2.6) LA Diam 3.95 cm (1.9-4.0) LVDd 4.77 cm (3.5-5.7) LVDs 3.70 cm (3.5-5.7) IVSd 1.71 cm (0.6-1.1) PWd 0.50 cm (0.6-1.1) EF (Teich) 45.20% FS 22.40% EDV (Teich) 106.00 mL TAPSE 1.94 (<1.7) ESV (Teich) 58.10 mL LV Diastology E Decel Time 150 (160-240 msec) E/A Ratio 1.2 Aortic Valve SARAH Index 1.08 cm2/m2 AoV Peak Julian. 243.0 (50-130 cm/s) AO Peak GR. 23.70 mmHg AO Mean GR. 13.70 (<5 mmHg) AO VTI 48.7 (18-25 cm) SARAH (VTI) 1.43 (2.5-4.5 cm2) Mitral Valve MV E Max Julian. 133.0 (40-130 cm/s) MV A Velocity 110.0 (40-130 cm/s) E/A Ratio 1.21 MV PHT 44.0 ms Pulmonary Valve PV Peak Velocity 121.0 (50-150 cm/s) Tricuspid Valve TR P. Velocity 250.00 cm/s RAP Estimate 10.00 mmHg RVSP 35.00 mmHg Left Ventricle The left ventricle is normal size. The left ventricular systolic function is mildly reduced. There is increased overall thickness. There is moderate hypokinesis of the septal and inferoseptal LV [place]. Grade 2 diastolic dysfunction is present. LVEF is 45%. Right Ventricle The right ventricle is normal size. The right ventricular systolic function is normal. Atria Left atrium is mildly dilated. Right atrium is mildly dilated. There is no Doppler evidence of interatrial shunt. Aortic Valve The aortic valve is mildly thickened.. Moderate aortic stenosis present. SARAH by continuity equation is 1.2 cm???. Peak velocity 2.3 m/s. Mean AV gradient 13 mmHg. Max AV gradient 25 mmHg (gradients may be underestimated in this TTE). Trace aortic regurgitation. Mitral Valve Mild mitral annular calcification. The mitral valve leaflets are mildly thickened. No evidence of mitral valve stenosis. Moderate mitral regurgitation is present. Tricuspid Valve Tricuspid valve is grossly normal in structure and function. Mild tricuspid regurgitation. RVSP 25-30 mmHg. Pulmonic Valve The pulmonary valve is normal in structure. Trace pulmonic regurgitation. Great Vessels The aortic root is normal in size. IVC is normal in size and collapses >50% with inspiration. Pericardium There is no pericardial effusion. Other Information Study Quality: Fair Conclusion Mild reduction in LV systolic function (LVEF 45%). Moderate hypokinesis of the septal and inferoseptal LV [place]. Biatrial dilation. Moderate [SARAH by continuity equation is 1.2 cm???. Peak velocity 2.3 m/s. Mean AV gradient 13 mmHg. Max AV gradient 25 mmHg (gradients may be underestimated in this TTE)]. Moderate MR. Mild TR. Electronically signed by : Mariajose Prather MD 07/11/2024 23:29:16
[2024-07-11] MEDS: UMECLIDINIUM/VILANTEROL 62.5/25MCG INHALER 1 PUFF IH (12:38)
[2024-07-11 16:00] VITALS: BP 161/117; PULSE 103; RESP 20; TEMP 36.4; O2SAT 99
--- NOTE | 2024-07-13 10:22 | SW/DCPLANNER ---
Phoned patient x2. Left message with name and call back number. Clara Santos
== END 2024-07-11 16:01 | disposition home or self-care (01) | DRG 871 ==
LOC: ER 15:10 → 2ND 16:00
PROVIDERS: Student in an Organized Health Care Education/Training Program; Admitting Provider Student in an Organized Health Care Education/Training Program; Emergency Provider Emergency Medicine; PCP Internal Medicine Adolescent Medicine; Visit Provider Student in an Organized Health Care Education/Training Program
DX: A41.9 Sepsis, unspecified organism (principal); E43 Unspecified severe protein-calorie malnutrition; I26.99 Other pulmonary embolism without acute cor pulmonale; J18.9 Pneumonia, unspecified organism; J96.21 Acute and chronic respiratory failure with hypoxia; J44.1 Chronic obstructive pulmonary disease with (acute) exacerbation; J44.0 Chronic obstructive pulmonary disease with (acute) lower respiratory infection; C34.91 Malignant neoplasm of unspecified part of right bronchus or lung; Z68.1 Body mass index [BMI] 19.9 or less, adult; I24.89 Other forms of acute ischemic heart disease; I50.22 Chronic systolic (congestive) heart failure; F17.210 Nicotine dependence, cigarettes, uncomplicated; K52.9 Noninfective gastroenteritis and colitis, unspecified; I25.10 Atherosclerotic heart disease of native coronary artery without angina pectoris; D64.89 Other specified anemias; I25.2 Old myocardial infarction; I48.0 Paroxysmal atrial fibrillation; Z99.81 Dependence on supplemental oxygen; Z79.899 Other long term (current) drug therapy; Z95.5 Presence of coronary angioplasty implant and graft; Z79.85 Long-term (current) use of injectable non-insulin antidiabetic drugs; Z91.199 Patient's noncompliance with other medical treatment and regimen due to unspecified reason
CPT/HCPCS: 36415; 71045; 71275; 74177; 80053; 81001; 83690; 83735; 84145; 84484; 85025; 85378; 87040; 93005; 93306; 99285; J0696; J1650; J2270; J2405; J2543; J2550; J3475; J7050; J7120; Q9967

== ENCOUNTER 2024-08-02 08:29 | Outpatient (CLI) | payer BC, OTHER, SELFPAY ==
--- OUTSIDE RECORDS SUMMARY | 2024-08-02 08:32 | XMS_ITS | Data Portability ---
Author Organization [facility] & Sally [facility] ADMIN Address [address] [place] [phone] Assessment No assessment recorded. Plan of Treatment Reminders Order Date Submit Date Provider Last Modified By Organization Details Last Modified Time Details Appointments None record ed. Lab None record ed. Referral None record ed. Procedures None record ed. Surgeries None record ed. Imaging XR, chest, 2 view 024 07/01/19 24 [facility] (Centralized Scheduling), [address] [facility], [place], [address], 11:36:40 Medication Orders None record ed. Patient TargetsNo targets recorded. Patient InstructionsNo instructions recorded. Reason for Referral None Reported. Results Created Date Observation Date Name Description Value Unit Range Abnormal Flag Note LastModifiedBy Organization Detail LastModifiedTime 10/28/19 24 10/27/2023 CT, chest , w/o contr ast No observ ation record ed. [facility] (Med Record) [address], [place], [address], 11/06/2023 11:48:34 10/29/19 24 08/27/2023 CT, chest , w/ contr ast No observ ation record ed. [email or web address] [facility] [address], [place], [address], 11/11/2023 16:06:08 02/10/[address], chest , w/o contr ast No observ ation record ed. [email or web address] Not Available 2023 08:43:28 Result Notes None recorded. Medical Equipment None Reported. Allergies Allergen ID Allergen Name Allergen Category Reaction Reaction Severity Criticality Documentation Date Start Date Code Code System Note Provider Name and Address Organization Details Recorded Time 375079 diazepam medicatio n Not available Not available Not available 07/01/2023 3322 RxNorm KALPANA Rojas [facility] & [place] 4 11:13:48 176270 aspirin medicatio n Not available Not available Not available 07/01/2023 1191 RxNorm KALPANA Rojas [facility] & [place] 4 11:13:58 Medications Name Sig Start Date [...] % 128 /min 97 [degF] 18.1 kg/m2 26385.8 7 g 124 mm[Hg] 59 mm[Hg] Ирина ACUNA - LPNT - [place] & [place] 4 11:13:15 Date Recorded Body height Body temperature Body mass index (BMI) Body weight Heart rate Oxygen saturation Oxygen saturation in Arterial blood by Pulse oximetry Systolic blood pressure Diastolic blood pressure Provider Name and Address Organization Details Last Updated DateTime 4 154.94 cm 98.6 [degF] 18.6 kg/m2 00796.2 1 g 92 /min 100 % 100 % 100 mm[Hg] 62 mm[Hg] Ofelia Duarte [place] - LPNT - [place] & [place] 13:13:10 Social History None recorded. Functional Status None recorded. Mental Status None recorded. Family History Nothing Reported. Medical History No medical history recorded. Gynecological HistoryNo gynecological history recorded. Obstetrics History GPAL:G 0 P 0 0 0 0 Past Encounters Encounter ID Performer Location Encounter Start Date Encounter Closed Date Diagnosis/Indication Diagnosis SNOMED-CT Code Diagnosis ICD10 Code Diagnosis [facility] [id number] [facility] [address] [place] [address] 07/01/2023 10:59:47 07/01/2023 11:35:02 Community acquired pneumonia [id number] J18.9 Exam is unremarkab le. Patient is on 2L NC all the time at home. Will send for follow up chest xray. Will see patient back in 2 weeks to evaluate condition. Fall W19.XXXA Patient fell in our parking lot. She is on blood thinners. She has a bruise/hem atoma on the right gnosticist. She also has an abrasion on the right arm. Incident report filed. Management notified. ER notified. Patient sent to [facility] ER to be evaluated. She has a family member to drive her. She is stable upon discharge. [id number] [facility] [address] [facility] [place] [address] 07/09/2023 13:01:53 07/09/2023 15:49:49 Community acquired pneumonia [id number] J18.9 Patient remains on 1.5-2L NC. Patient is stable at baseline. Follow up PRN. Health Concerns Section Related Observation LastModified by Organization Detai ls LastModified Time None Recorded Concern Status LastModified by Organization Details LastModified Time None Recorded Advance Directives Directive None Recorded Payers Insurance Date Sequence Insurance Name Policy Number Policy Garcia Covered Member ID Garcia Member ID Guarantor Name 09/03/2023 1 [place] [id number] Kehinde Jensen [id number] 09/30/2023 1 [place] [id number] [place] [id number] 02/07/2024 1 [place] [id number] Kehinde Jensen [id number] [address] Notes Date Note Type Note [...] resulting in a hematoma on the right gnosticist. She is on blood thinners. She also reports an abrasion and pain to the right arm. She is stable in clinic currently. She is requesting to be evaluated by our medical team. She denies any loss of consciousness. Denies any headache. Denies any change in vision or hearing. Mora Poole APRN [address], [place], [address], [facility] & [place] 07/01/2023 11:57:02 07/09/2023 text/html patient is a 67 year old white female presenting to clinic for hospital follow up for pneumonia. Patient states she continues to feel better. Her SOB improves but she remains on 1.5L NC. She denies any fevers. Denies any sputum production. Denies any chest pain. Mora Poole APRN [address] , [place], [address], [facility] - NT [facility] & [place] 07/09/2023 15:14:21 OBGyn Episode No OBEpisode recorded.
--- NOTE | 2024-08-02 08:45 | CT_ITS ---
FINAL REPORT TECHNIQUE: Thin section axial images were obtained from the thoracic inlet through the upper abdomen after intravenous contrast injection. Reconstruction images were obtained from the axial data. Exam was performed using dose reduction technique. CLINICAL HISTORY: Lung Cancer since 2023 COMPARISON: 07/09/2024 FINDINGS: There are subcentimeter, bilateral hypodense thyroid nodules. There is no axillary lymphadenopathy. Abnormal soft tissue density is seen in the AP window, both anterior and posterior to the neeraj and richie bilaterally. Findings are similar to prior exam. This could be related to radiation therapy or mediastinal fibrosis. There is no new mediastinal or hilar lymphadenopathy. There is no pleural or pericardial effusion. Changes of emphysema are seen. There is airspace disease in the superior segment of the left lower lobe which is unchanged. Wedge-shaped airspace disease in the anterior right upper lobe is similar to prior exam. There has been interval improvement in nodularity seen in the right midlung favored to represent improving pneumonia. There is likely a component of radiation change in the right perihilar region. Limited imaging of the upper abdomen demonstrates a new, mildly enlarged right retrocrural lymph node measuring 14 mm. Remaining upper abdomen is without acute abnormality. No acute osseous changes are seen. IMPRESSION: 1. Improved nodular opacities in the right midlung, favor improved pneumonia. 2. Stable abnormal soft tissue density in the mediastinum and stable wedge-shaped anterior right upper lobe opacity which could be related to treatment change. 3. New right retrocrural lymph node which could be reactive or metastatic. Reviewed, Interpreted and Dictated by Neeraj Ribeiro MD Transcribed by Ilda Becerril Authenticated and [facility]
[2024-08-02] MEDS: SODIUM CHLORIDE 0.9% 10ML SYR (RAD ONLY) 10 ML IV ×2 (09:23→09:27)
[2024-08-02] MEDS: IOPAMIDOL-370 (76%);100ML BOTTLE 75 ML IV (09:23)
[2024-08-02 12:44] VITALS: BMI 16.9
--- NOTE | 2024-08-02 12:48 | PC.NURSE ---
1248-collected labs via venipuncture stick in left ac with butterfly needle;pt to oncology appt
[2024-08-02 13:03] LABS: Albumin Level 3.9 g/dl (3.5-5.0); Chloride 99 mmol/L (98-107); Potassium 4.3 mmoL/L (3.5-5.1); Sodium 134 mmol/L (136-145)
[2024-08-02 13:06] LABS: Alanine Aminotransferase 15 U/L (12-78); Albumin/Globulin Ratio 1.2 (1.1-1.8); Alkaline Phosphatase 80 U/L (38-126); Anion Gap 8.3 mEq/L (5-15); Aspartate Amino Transferase 21 U/L (14-36); Bilirubin,Total 0.2 mg/dl (0.2-1.3); Blood Urea Nitrogen 9 mg/dl (7-17); Carbon Dioxide 31 mmol/L (22.0-30.0); Creatinine Clearance Estimated 34 mL/min (50-200); Estimated Glomerular Filt Rate 123 ml/min (>60); GFR (African American) 149 ML/MIN (>60); Globulin 3.2 g/dL (1.3-3.2); Total Protein,Serum 7.1 g/dl (6.3-8.2)
[2024-08-02 13:07] LABS: Glucose 147 mg/dl (74-100)
[2024-08-02 13:39] LABS: Thyroid Stimulating Hormone 4.29 uIU/mL (0.465-4.68)
== END 2024-08-02 12:50 | disposition home or self-care (01) ==
LOC: RAD 08:30
PROVIDERS: PCP Internal Medicine Adolescent Medicine; Visit Provider Internal Medicine Medical Oncology
DX: C34.90 Malignant neoplasm of unspecified part of unspecified bronchus or lung (principal); R91.8 Other nonspecific abnormal finding of lung field
CPT/HCPCS: 36415; 71260; 80053; 82533; 84443; Q9967

== ENCOUNTER 2024-08-02 12:38 | Outpatient (CLI) | payer BC, OTHER, SELFPAY ==
[2024-08-02 12:56] LABS: Basophils % 0.4 % (0.1-2.0); Eosinophils # 0.1 Kmm3 (0.0-0.4); Eosinophils % 1.7 % (0.1-12.0); Hematocrit 34.4 % (37.0-47.0); Hemoglobin 10.9 g/dL (12.2-16.2); Immature Granulocytes # 0.04 10^3uL; Immature Granulocytes % 0.5 %; Lymphocytes # 0.6 K/mm3 (0.7-4.5); Lymphocytes % 7.4 % (10-50); Mean Corpuscular HGB Conc 31.7 g/dL (31.8-35.4); Mean Corpuscular Hemoglobin 26.9 pg (27.0-31.2); Mean Corpuscular Volume 84.9 fl (81-99); Mean Platelet Volume 10.1 fl (7.4-10.4); Monocytes # 0.7 K/mm3 (0.1-1.0); Monocytes % 7.8 % (1.7-9.3); Neutrophils # 6.9 K/mm3 (1.8-7.8); Neutrophils % 82.2 % (37.0-80.0); Nucleated Red Blood Cells # 0 10^3/uL; Nucleated Red Blood Cells % 0 %; Platelet Count 326 K/mm3 (142-424); Red Blood Count 4.05 M/mm3 (4.20-5.40); Red Cell Distribution Width 19.6 % (11.5-17.5); Red Cell Distribution Width-SD 61.1 fL; White Blood Count 8.3 K/mm3 (4.8-10.8)
[2024-08-02 13:11] LABS: Iron 126 ug/dL (37-170)
[2024-08-02 13:20] LABS: Total Iron Binding Capacity 290 ug/dL (265-497)
== END 2024-08-02 23:59 | disposition home or self-care (01) ==
LOC: LAB 12:39
PROVIDERS: PCP Internal Medicine Adolescent Medicine; Visit Provider Internal Medicine Medical Oncology
DX: D64.9 Anemia, unspecified (principal)
CPT/HCPCS: 82728; 83540; 83550; 85025

== ENCOUNTER 2024-08-07 23:47 | Emergency (ER) | payer BC, OTHER, SELFPAY ==
[2024-08-08] VITALS (12 sets, daily range): BP systolic 72–168; BP diastolic 45–90; PULSE 103–122; RESP 18; TEMP 36.6–36.8; O2SAT 90–100; BMI 17.2
--- OUTSIDE RECORDS SUMMARY | 2024-08-08 00:32 | XMS_ITS | Data Portability ---
Author Organization [facility] & Sally [facility] ADMIN Address [address] [place] [address] Assessment No assessment recorded. Plan of Treatment Reminders Order Date Submit Date Provider Last Modified By Organization Details Last Modified Time Details Appointments None record ed. Lab None record ed. Referral None record ed. Procedures None record ed. Surgeries None record ed. Imaging XR, chest, 2 view 024 07/01/19 24 [facility] (Centralized Scheduling), [address] [facility], [place], [address], 11:36:40 Medication Orders None record ed. Patient TargetsNo targets recorded. Patient InstructionsNo instructions recorded. Reason for Referral None Reported. Results Created Date Observation Date Name Description Value Unit Range Abnormal Flag Note LastModifiedBy Organization Detail LastModifiedTime 10/28/19 24 10/27/2023 CT, chest , w/o contr ast No observ ation record ed. [facility] (Med Record) [address], [place], [address], 11/06/2023 11:48:34 10/29/19 24 08/27/2023 CT, chest , w/ contr ast No observ ation record ed. [email or web address] [facility] [address], [place], [address], 11/11/2023 16:06:08 02/10/[address], chest , w/o contr ast No observ ation record ed. [email or web address] Not Available 2023 08:43:28 Result Notes None recorded. Medical Equipment None Reported. Allergies Allergen ID Allergen Name Allergen Category Reaction Reaction Severity Criticality Documentation Date Start Date Code Code System Note Provider Name and Address Organization Details Recorded Time 622231 diazepam medicatio n Not available Not available Not available 07/01/2023 3322 RxNorm KALPA[place] Rojas [facility] & [place] 4 11:13:48 282525 aspirin medicatio n Not available Not available Not available 07/01/2023 1191 RxNorm KALPANA Rojas [facility] & [place] 4 11:13:58 Medications Name Sig Start Date [...] % 128 /min 97 [degF] 18.1 kg/m2 95740.8 7 g 124 mm[Hg] 59 mm[Hg] Ирина ACUNA - LPNT - [place] & [place] 4 11:13:15 Date Recorded Body height Body temperature Body mass index (BMI) Body weight Heart rate Oxygen saturation Oxygen saturation in Arterial blood by Pulse oximetry Systolic blood pressure Diastolic blood pressure Provider Name and Address Organization Details Last Updated DateTime 4 154.94 cm 98.6 [degF] 18.6 kg/m2 56725.2 1 g 92 /min 100 % 100 % 100 mm[Hg] 62 mm[Hg] Ofelia Duarte [place] - LPNT - [place] & [place] 13:13:10 Social History None recorded. Functional Status None recorded. Mental Status None recorded. Family History Nothing Reported. Medical History No medical history recorded. Gynecological HistoryNo gynecological history recorded. Obstetrics History GPAL:G 0 P 0 0 0 0 Past Encounters Encounter ID Performer Location Encounter Start Date Encounter Closed Date Diagnosis/Indication Diagnosis SNOMED-CT Code Diagnosis ICD10 Code Diagnosis Note [id number] [facility] [address] [place] [address] 07/01/2023 10:59:47 07/01/2023 11:35:02 Community acquired pneumonia [id number] J18.9 Exam is unremarkab le. Patient is on 2L NC all the time at home. Will send for follow up chest xray. Will see patient back in 2 weeks to evaluate condition. Fall W19.XXXA Patient fell in our parking lot. She is on blood thinners. She has a bruise/hem atoma on the right bahai. She also has an abrasion on the right arm. Incident report filed. Management notified. ER notified. Patient sent to [facility] ER to be evaluated. She has a family member to drive her. She is stable upon discharge. [id number] [facility] [address] [facility] [place] [address] 07/09/2023 13:01:53 07/09/2023 15:49:49 Community acquired pneumonia [id number] J18.9 Patient remains on 1.5-2L NC. Patient [...] ID Guarantor Name 09/03/2023 1 [place] [id number] Kehinde Jensen [id number] 09/30/2023 1 [place] [id number] [place] [id number] [address] 02/07/2024 1 [place] [id number] Kehinde Jensen [id number] Notes Date Note Type [...] resulting in a hematoma on the right bahai. She is on blood thinners. She also reports an abrasion and pain to the right arm. She is stable in clinic currently. She is requesting to be evaluated by our medical team. She denies any loss of consciousness. Denies any headache. Denies any change in vision or hearing. Mora Poole APRN [address], [place], [address], [facility] & [place] 07/01/2023 11:57:02 07/09/2023 text/html patient is a 67 year old white female presenting to clinic for hospital follow up for pneumonia. Patient states she continues to feel better. Her SOB improves but she remains on 1.5L NC. She denies any fevers. Denies any sputum production. Denies any chest pain. Mora Poole APRN [address] , [place], [address], [facility] - NT [facility] & [place] 07/09/2023 15:14:21 OBGyn Episode No OBEpisode recorded.
--- OUTSIDE RECORDS SUMMARY | 2024-08-08 00:32 | XMS_ITS | Clinical Summary ---
Author Organization [facility] Address [address] [place] [address] Care Team Providers Care Fire Prevention Bureau Captain Name Role Phone Mk Reagan MD Primary Care Provider [phone] Hossein Greer MD Unavailable [phone] Allergies Active Allergy Reactions Criticality Noted Date Comments Aspirin Other - please docum ent in the comment field Low 03/04/2024 Diazepam Nausea,Vomiting High 02/25/2023 Diazepam- reaction to the inactive ingredient. Pt. States she CAN take the brand name Valium. Medications albuterol 108 (90 Base) MCG/ACT inhaler Inhale 2 puffs every 4 (four) hours if needed for wheezing or shortness of breath. Active amiodarone (Pacerone) 200 MG tablet Take 1 tablet (200 mg) by mouth 1 (one) time each day. Active apixaban (Eliquis) 5 MG tablet Take 1 tablet (5 mg) by mouth 2 (two) times a day. Active bisoprolol (Zebeta) 5 MG tablet Take 0.5 tablets (2.5 mg) by mouth 1 (one) time each day. Active furosemide (Lasix) 20 MG tablet Take 1 tablet (20 mg) by mouth 1 (one) time each day. Active mirtazapine (Remeron) 15 MG tablet Take 1 tablet (15 mg) by mouth every night. Active oxyCODONE (Roxicodone) 5 MG immediate release tablet Take 1 tablet (5 mg) by mouth 2 (two) times a day. Active ondansetron ODT (Zofran-ODT) 4 MG disintegrating tablet Take 1 tablet (4 mg) by mouth every 8 (eight) hours if needed for nausea or vomiting. Active magnesium oxide (Mag-Ox) 400 mg tablet Take 1 tablet (400 mg) by mouth 1 (one) time each day. Active cholecalciferol 10 MCG (400 UNIT) tablet Take 1 tablet (400 Units) by mouth 1 (one) time each day. Active ipratropium-albute rol (Duo-Neb) 0.5-2.5 mg/3 mL nebulizer solution Take 3 mL by nebulization every 6 (six) hours if needed for wheezing. 180 mL 11 01/26/20 24 Active acetylcysteine (Mucomyst) 20 % nebulizer solution Take 4 mL by nebulization 2 (two) times a day. 30 mL 11 01/26/20 24 Active sodium chloride 3 % nebulizer solution Take 4 mL by nebulization 2 (two) times a day. 750 mL 12 01/26/20 24 Active LORazepam (Ativan) 1 MG tabletIndications: Claustrophobia Take 1 tablet (1 mg) by mouth 1 (one) time for 1 dose. Take one hour prior to MRI. 1 tablet 02/02/20 24 Active promethazine (Phenergan) 12.5 MG tablet Take 1 tablet (12.5 mg) by mouth every 6 (six) hours if needed for nausea or vomiting. Active ascorbic acid (vitamin C) 1000 MG tablet Take 1 tablet (1,000 mg) by mouth 1 (one) time each morning. Active Active Problems Problem Noted Date Diagnosed Date Non-small cell cancer of right lung 02/03/2024 Claustrophobia 02/03/2024 Tobacco use disorder 02/02/2024 Second hand smoke exposure 02/02/2024 Acute hypoxic respiratory failure 01/15/2024 Moderate protein-calorie malnutrition 01/15/2024 Heart disease, unspecified Overview (03/04/2024): Heart problem Major depressive disorder, single episode, unspe cified Overview (03/04/2024): Depression Migraine, unspecified, not i ntractable, without status migrainosus Overview (03/04/2024): Migraines Old myocardial infarction Overview (03/04/2024): History of myocardial infarction Personal history of other di seases of the circulatory system Overview (03/04/2024): History of hypertension Unspecified osteoarthritis, unspecified site Overview (03/04/2024): Arthritis Family History Medical History Relation Name Comments Skin cancer Father FH: skin cancer Breast cancer Maternal Grandmother Anesthesia problems Neg Hx Malig Hyperthermia Neg Hx Relation Name Status Comments Father Maternal Grandmother Social History Tobacco Use Types Packs/Day Years Used Date Smoking Tobacco: Every Day Cigarettes 1 48.4 Started: 1975 Passive Smoke Exposure: Never Smokeless Tobacco: Never Tobacco Cessation:Ready to Q uit: Not Asked; Counseling Given: Not Answered Alcohol Use Standard Drinks/Week Comments Yes 0 (1 standard drink = 0.6 oz pur e alcohol) Occasionally Humiliation, Afraid, Rape, a nd Kick questionnaire Answer Date Recorded Within the last year, have y ou been afraid of your partner or ex-partner? Patient unable to answer 01/15/2024 Within the last year, have y ou been humiliated or emotionally abused in other ways by your partner or ex-partner? Patient unable to answer 01/15/2024 Within the last year, have y ou been kicked, hit, slapped, or otherwise physically hurt by your partner or ex-partner? Patient unable to answer 01/15/2024 Within the last year, have y ou been raped or forced to have any kind of sexual activity by your partner or ex-partner? Patient unable to answer 01/15/2024 Social Connection and Isolation Panel Answer Date Recorded Frequency of Communication with Friends and Fami ly Not on file 01/15/2024 Frequency of Social Gatherings with Friends and Family Not on file 01/15/2024 Attends Synagogue Services Not on file 01/14 Active Member of Clubs or Organizations Not on f ile 01/15/2024 Attends Club or Organization Meetings Not on miranda e 01/15/2024 Are you , , di vorced, , never , or living with a partner? 01/15/2024 Hunger Vital Sign Answer Date Recorded Within the past 12 months, y ou worried that your food would run out before you got the money to buy more. Never true 01/15/20 24 Within the past 12 months, t he food you bought just didn't last and you didn't have money to get more. Never true 01/15/2024 PRAPARE - Transportation Answer Date Re corded In the past 12 months, has l ack of transportation kept you from medical appointments or from getting medications? No 12/31 In the past 12 months, has l ack of transportation kept you from meetings, work, or from getting things needed for daily living? No 01/15/2024 Housing Stability Vital Sign Answer Nilson e Recorded In the last 12 months, was t here a time when you were not able to pay the mortgage or rent on time? No 01/15/2024 In the past 12 months, how m any times have you moved where you were living? 0 01/15/2024 At any time in the past 12 m [facility], were you homeless or living in a intermediate (including now)? No 01/15/2024 Utilities Answer Date Recorded In the past 12 months has th e electric, gas, oil, or water company threatened to shut off services in your home? No 01/15/2024 Comments No Sex and Gender Information Value Date Recorded Sex Assigned at Female 04/12/2024 10:16 AM EST Legal Sex Female 8:10 PM EDT Gender Identity Not on file Sexual Orientation Not on file Last Filed Vital Signs Vital Sign Reading Time Taken Comments Blood Pressure 119/44 04/12/2024 3:30 PM EST Pulse 93 04/12/2024 3:30 PM EST Temperature 36.7 C (98 F) 04/12/2024 3:30 PM EST Respiratory Rate 18 04/12/2024 3:30 PM EST Oxygen Saturation 100% 04/12/2024 3:30 PM EST Inhaled Oxygen Concentration - - Weight 34.9 kg (77 lb) 04/12/2024 1:53 PM EST Height 152.4 cm (5') 04/12/2024 1:53 PM EST Body Mass Index 15.04 04/12/2024 1:53 PM EST Plan of Treatment Health Maintenance Due Date Last Done Comments [facility]-Bone Density Scan 1956 [facility]-Depression Screening 1956 [facility]-Hepatitis C Screening 1956 [facility]-/Child/Adol SDOH Screenings 1955 PXB-BOFMD-60 Vaccine (#1) 1961 [facility]-DTaP,Tdap,and Td Vaccine s (1 - Tdap) 11/11/1975 [facility]-Pneumococcal Vaccine: 50 + Years (1 of 2 - PCV) 11/11/1975 [facility]-Zoster Vaccines (1 of 2) 11/11/1975 CT Colonography 2001 Colonoscopy 2001 FIT-DNA 2001 FIT 2001 FOBT 2001 Sigmoidoscopy 2001 [facility]-Colorectal Cancer Screening 2001 [facility]-Breast Cancer Screening 2006 [facility]-RSV Vaccine: 60+ Years o r (1 - Risk 60-74 years 1-dose series) 2016 [facility]- SDOH Screenings 07/14/2024 [facility]-Adult SDOH Screenings 07/14/2024 01/15/2024 [facility]-Influenza Vaccine (Seaso n Ended) 2024 [facility]-Diabetes: Hemoglobin A1C 01/14/2025 01/15/2024 HPV Vaccines Aged Out No longer eligi ble based on patient's age to complete this topic [facility]-HIB Vaccines Aged Out No longer e ligible based on patient's age to complete this topic [facility]-Hepatitis A Vaccines Aged Out No longer eligible based on patient's age to complete this topic [facility]Y-IPV Vaccines Aged Out No longer e ligible based on patient's age to complete this topic [facility]-Rotavirus Vaccines Aged Out No lo nger eligible based on patient's age to complete this topic Medical Devices Implanted Type Area Camp Housekeeper Device Identifier Shelf Expiration Date Model / Serial / Lot Stent Stent Heart Description:Two heart stents in right side Stent Stent Neck Stent Bonastent Tracheal/Bronch ial [id number] - [id number] Implanted:Qty: 1 on 01/21/2024 by Cesar Irving MD at [facility] [employer]-[id number] 09/09/2026 [id number] / / [id number] Procedures Procedure Name Priority Date/Time Associated Diagnosis Comments HEMOGLOBIN A1C Routine 01/15/2024 1:06 AM EST from Last 3 Months or Most Recently Relevant to Health Maintenance Results * (ABNORMAL) Hemoglobin A1c (01/15/2024 1:06 AM EST) Hemoglobin A1c 5.9(H) <5.7 % 01/15/2024 2:59 AM EST [facility] Blood Arterial blood specimen / Unknown Venipuncture / Unknown 01/15/2024 1:06 AM EST 01/15/2024 1:12 AM EST Narrative [facility] - 01/15/2024 2:59 AM EST HA1C Interpretive Data: Diagnosis of Diabetes: Diabetic > or = 6.5% Pre-diabetic 5.7 to 6.4% Non-diabetic < or = 5.6% Glycemic Targets for Type I and Type II Diabetics: Non- Adults <7.0% Adults <6.0% Children and Adolescents <7.5% Source: [place] [employer]. Standards of medical care in diabetes,2017. Diabetes Care.2017:40 (suppl 1):S1-S135. HbA1c assay performed by an ion-exchange chromatography method that is certified traceable to the DCCT. Orlando Oseguera DO LAB BLOOD ORDERABLES Final Result Performing Organization Address City/State/[facility] de Phone Number [facility] [address] [place] [address] from Last 3 Months or Most Recently Relevant to Health Maintenance Insurance HOA Advance Directives * Full Code (Latest Code Status on File) Date Activated Date Inactivated Comments 01/18/2024 5:01 PM 01/26/2024 8:47 PM Question Answer Comments Patient has decision-making capacity? No Healthcare Surrogate: Adult child of the patient Care Teams Fire Prevention Bureau Captain Relationship Specialty Start Date End Date Mk Reagan MD [address] [facility] [address] [address] [place] [address] PCP - General Internal Medicine 01/15/24 Hossein Greer MD [address] [facility] [address] [place] [id number] Consulting Physician Radiation Oncology 02/01/24
--- OUTSIDE RECORDS SUMMARY | 2024-08-08 00:32 | XMS_ITS | Encounter Summary ---
Author Organization Healthcare Address [address] [place] [address] Care Team Providers Care Adjuster Leader Name Role Phone Mk Reagan MD Primary Care Provider [phone] Kehinde Greer MD Unavailable [phone] Encounter Details Date Type Department Care Team (Late st Contact Info) Description 01/18/2024 Lab Requisition [facility] [address] [place] [address] Mu Carrillo MD [address] [facility] [address] [place] [address] Encounter for general adult medical examination without abnormal findings Social History Tobacco Use Types Packs/Day Years Used Date Smoking Tobacco: Every Day Humiliation, Afraid, Rape, a nd Kick questionnaire [...] and Family Not on file 01/15/2024 Attends [employer] Services Not on file 01/14 Active Member [...] any time in the past 12 m [facility], were you homeless or living in a long term (including now)? No 01/15/2024 Utilities Answer Date Recorded In the past 12 months has th e electric, gas, oil, or water company threatened to shut off services in your home? No 01/15/2024 Comments Unknown Sex and Gender Information Value Date Recorded Sex Assigned at Female 04/12/2024 10:16 AM EST Legal Sex Female 8:10 PM EDT Gender Identity Not on file Sexual Orientation Not on file documented as of this encounter Functional Status * Calculated C-SSRS Risk Score (Lifetime/Recent) Answer Date of Assessment Author No Risk Indicated 01/21/2024 9:00 PM EST Krysta Goodson RN * Question Answer Date of Assessment Author 1. Wish to be (Past 1 Month) No 024 9:00 PM EST Krysta Goodson RN 2. Non-Specific Active Suici obdulia Thoughts (Past 1 Month) No 01/21/2024 9:00 PM EST Krysta Goodson RN 6. Suicidal Behavior (Lifetime) No 9:00 PM EST Krysta Goodson RN documented as of this encounter Plan of Treatment Not on file documented as of this encounter Procedures Procedure Name Priority Date/Time Associated Diagnosis Comments MULTI DRUG RESISTANCE TEST Routine 01/18/2024 8:00 AM EST Encounter for general adult medical examination without abnormal findings documented in this encounter Results * Multi Drug Resistance Test (01/18/2024 8:00 AM EST) Culture No growth at day 1 01/19/2024 8:51 AM EST [facility] Swab (Nares and Tiffany Rectal) 01/18/2024 8:00 AM EST 01/18/2024 11:29 AM EST us Mu Carrillo MD LAB MICROBIOLOGY - GEN ERAL ORDERABLES Final Result [facility] [address] [place] [address] documented in this encounter Visit Diagnoses Diagnosis Encounter for general adult medical examination without abnormal findings documented in this encounter Additional Health Concerns Assessment Noted Time A Body Mass Index follow-up plan has been documented for the patient 01/26/2024 5:13 PM EST documented as of this encounter Care Teams Adjuster Leader Relationship Specialty Start Date End Date Mk Reagan MD [address] [place] [address] PCP - General Internal Medicine 01/15/24 Kehinde Greer MD [address] [facility] [address] [place] [address] Consulting Physician Radiation Oncology 02/01/24 documented as of this encounter
--- OUTSIDE RECORDS SUMMARY | 2024-08-08 00:32 | XMS_ITS | Encounter Summary ---
Author Organization Healthcare Address [address] [place] [address] Care Team Providers Care Plate Molder Name Role Phone Mk Reagan MD Primary Care Provider [phone] Kehinde Greer MD Unavailable [phone] Encounter Details Date Type Department Care Team (Late st Contact Info) Description 01/19/2024 Lab Requisition [facility] [address] [place] [address] Mu Carrillo MD [address] [facility] [address] [place] [address] Encounter for general adult medical [...] and Family Not on file 01/15/2024 Attends [employer] Services Not on file 01/14 Active Member [...] any time in the past 12 m [facility], were you homeless or living in a [...] Date of Assessment Author No Risk Indicated 01/22/2024 8:00 PM EST Fening, Gabriela * Question Answer Date of Assessment Author 1. Wish to be (Past 1 Month) No 024 8:00 PM EST Fening, Gabriela 2. Non-Specific Active Suici obdulia Thoughts (Past 1 Month) No 01/22/2024 8:00 PM EST Fening, Gabriela 6. Suicidal Behavior (Lifetime) No 4 8:00 PM EST Fening, Gabriela documented as of this encounter Plan of Treatment Not on file documented as of this encounter Procedures Procedure Name Priority Date/Time Associated Diagnosis Comments MULTI DRUG RESISTANCE TEST Routine 01/19/2024 6:00 AM EST Encounter for general adult medical examination without abnormal findings documented in this encounter Results * Multi Drug Resistance Test (01/19/2024 6:00 AM EST) Culture No growth at day 1 01/20/2024 4:06 AM EST [facility] Swab (Nares and Tiffany Rectal) 01/19/2024 6:00 AM EST 01/19/2024 7:21 AM EST us Mu Carrilol MD LAB MICROBIOLOGY - GEN ERAL ORDERABLES Final Result [facility] [address] [place] [address] documented in this encounter Visit Diagnoses Diagnosis Encounter for general adult medical examination without abnormal findings documented in this encounter Additional Health Concerns Assessment Noted Time A Body Mass Index follow-up plan has been documented for the patient 01/26/2024 5:13 PM EST documented as of this encounter Care Teams Plate Molder Relationship Specialty Start Date End Date Mk Reagan MD [address] [place] [address] PCP - General Internal Medicine 01/15/24 Kehinde Greer MD [address] [facility] [address] [place] [address] Consulting Physician Radiation Oncology 02/01/24 documented as of this encounter
--- OUTSIDE RECORDS SUMMARY | 2024-08-08 00:32 | XMS_ITS ---
Author Organization [facility] Address [address] [place] [address] Care Team Providers Care Electric Knife Operator Name Role Phone Mk Reagan MD Primary Care Provider [phone] Kehinde Greer MD Unavailable [phone] Active Problems Problem Noted Date Diagnosed Date [...] Unspecified osteoarthritis, unspecified site Overview (03/04/2024): Arthritis Current Treatment and Therapy Plans No current plan information found. Past Treatment and Therapy Plans No past plan information found. Lifetime Dose Tracking * Chemical Lifetime Dose Automatic Entry Manual Entr y Fluoro Time 2.917 minutes 2.917 minutes 0 minutes Air Kerma 42.8 mGy 42.8 mGy 0 mGy
--- NOTE | 2024-08-08 00:56 | HMH.EDGENADL ---
Discharge Plan Disposition Patient Disposition: Home, Self-Care Prescriptions Prescriptions: New promethazine 25 mg suppository 25 mg MO Q6H PRN (Reason: nausea and vomiting) Qty: 24 2RF No Action trazodone 50 mg tablet 25 mg PO HS Patient Comments: TAKE 1/2 (ONE-HALF) TABLET BY MOUTH AT BEDTIME NEEDED FOR INSOMNIA Eliquis 5 mg tablet 5 mg PO BID Patient Comments: TAKE TWO TABLETS BY MOUTH TWICE DAILY FOR 7 DAYS THEN TAKE ONE TABLET BY MOUTH TWICE DAILY THEREAFTER oxycodone 5 mg tablet 5 mg PO BIDP PRN (Reason: Pain) Qty: 60 0RF megestrol 400 mg/10 mL (40 mg/mL) suspension 400 mg PO BID Patient Comments: TAKE 10 ML BY MOUTH TWICE DAILY amiodarone 200 mg tablet 200 mg PO DAILY Patient Comments: TAKE 1 TABLET BY MOUTH ONCE DAILY temazepam 7.5 mg capsule 7.5 mg PO HSP PRN (Reason: Sleep) Patient Comments: TAKE 1 CAPSULE BY MOUTH AT BEDTIME NIGHTLY NEEDED FOR INSOMNIA umeclidinium-vilanterol [Anoro Ellipta] 62.5-25 mcg/actuation Blister With Device 1 inh inhalation DAILY 30 Days Qty: 60 0RF amoxicillin-pot clavulanate [Augmentin] 500-125 mg tablet 1 tab PO TID 4 Days Qty: 12 0RF doxycycline hyclate 100 mg tablet 100 mg PO BID 4 Days Qty: 8 0RF ondansetron HCl 4 mg tablet 4 mg PO Q8H PRN (Reason: nausea and vomiting) Qty: 20 0RF Referrals Follow up/Referrals: Mk Reagan MD [Primary Care Provider, Internal Medicine] - See instructions Activity Restrictions/Add. Instructions Additional Instructions/Restrictions: Please follow-up with your primary care provider. Please return to the emergency department if you develop any new or worsening symptoms or become concerned for your health. I sent a prescription for rectal Phenergan to use as needed. Clinical Impressions Clinical Impression: Migraine, Nausea & vomiting, Lung cancer Print Language Print Language: Armenian Discharge ED Provider: Mc Pantoja Adult HPI General Chief complaint: Headache Stated complaint: throwing up severe headache Time Seen by Provider: 08/08/24 00:56 Mode of Arrival: Ambulatory Source of Information: Patient Description of Symptoms (Recalled from ER Triage Doc. by RN): Pt presents for evaluation of a headache that she has had off and on for a while Pt states the headache became worse today. Pt has nausea/vomiting. Pt has tried taking her prescribed for nausea and has not had relief. Pt is on 3L o2 baseline. pt rates pain as a 10/10 History of Present Illness HPI narrative: 68-year-old female with history of chronic respiratory failure secondary to lung cancer, history of of heart failure, paroxysmal A-fib, COPD, migraines presents for headache and nausea vomiting. It has been ongoing all day. The nausea and vomiting started first. She has tried taking her home nausea medications without relief. She reports her headache is bandlike, sharp. She denies any vision changes, numbness weakness or other neurologic changes. Reports noise and light sensitivity. She reports that she does sometimes get migraines but this is worse than normal. Related Data Home Medications ?Medication ?Instructions ?Recorded ?Confirmed amiodarone 200 mg tablet 200 mg PO DAILY 07/10/24 08/02/24 megestrol 400 mg/10 mL (40 mg/mL) 400 mg PO BID 07/10/24 08/02/24 oral suspension temazepam 7.5 mg capsule 7.5 mg PO HSP PRN Sleep 07/10/24 08/02/24 apixaban 5 mg tablet (Eliquis) 5 mg PO BID 08/02/24 08/02/24 trazodone 50 mg tablet 25 mg PO HS 08/02/24 08/02/24 Previous Rx's ?Medication ?Instructions ?Recorded oxycodone 5 mg tablet 5 mg PO BIDP PRN Pain #60 tabs 07/07/24 amoxicillin 500 mg-potassium 1 tab PO TID 4 days #12 tabs 07/11/24 clavulanate 125 mg tablet (Augmentin) doxycycline hyclate 100 mg tablet 100 mg PO BID 4 days #8 tabs 07/11/24 ondansetron HCl 4 mg tablet 4 mg PO Q8H PRN nausea and 07/11/24 vomiting #20 tabs umeclidinium 62.5 mcg-vilanterol 1 inh inhalation DAILY 30 days #60 07/11/24 25 mcg/actuation powdr for ea inhalation (Anoro Ellipta) promethazine 25 mg rectal 25 mg MO Q6H PRN nausea and 08/08/24 suppository vomiting #24 ea Allergies Allergy/AdvReac Type Severity Reaction Status Date / Time diazepam AdvReac Severe Vomiting Verified 08/02/24 12:53 aspirin AdvReac Other Verified 08/02/24 12:53 [facility] Disclaimer: The information contained in this section may have been updated after the patient was seen, as this information can be updated by other users. Medical History Bilateral pneumonia Dizziness Crescendo angina Headache Right middle lobe pneumonia Acute exacerbation of chronic obstructive pulmonary disease GI bleed Sepsis Acute on chronic HFrEF (heart failure with reduced ejection fraction) Iron deficiency anemia Abnormal cardiovascular stress test Paroxysmal atrial fibrillation Lung collapse Angina pectoris Acute and chronic respiratory failure with hypoxia Atrial fibrillation with RVR Primary lung cancer Acute hypoxemic respiratory failure Lung cancer Orthopnea Hemoptysis Smoking greater than 30 pack years Pulmonary emphysema History of lung cancer in adulthood Hilar lymphadenopathy Nodule of right lung Stenosis of carotid artery Cancer Migraine Heart attack NSCLC of left lung Anxiety Tooth abscess Antibiotics and diflucan for vaginitis from antibiotics. F/U with Dr Sherwood Surgical History History of bladder surgery History of heart artery stent History of hysterectomy Family History Other Cancer Heart attack Hypertension Stroke Social History Smoking Status: Current every day smoker tobacco type: cigarettes packs per day: 1 alcohol intake: never substance use type: denies use current occupational status: other Travel in the last 8 weeks?: None Have you lived/traveled outside US in past 30 days?: No Contact w/someone who lives/traveled outside US past 30 days?: No Exposure to someone with infectious disease in past 14 days?: No Do you have a fever (greater than 100.4 F or 38 C)?: No Have you tested positive for COVID-19?: No Exposed to someone with COVID-19 in past 14 days?: No Do you have a sore throat?: No Do you have a cough?: No Do you have any weakness?: No Do you have any diarrhea?: No Are you experiencing any unusual bleeding?: No Do you have any muscle aches/pain?: No Do you have any abdominal pain?: No Are you experiencing loss of taste or smell?: No Other Medical History Have you received the Flu Vaccine for this season: No Have you received the Pneumonia Vaccine: No ROS Obtained: Yes All systems reviewed & no additional complaints except as documented Physical Exam General General appearance: alert and cachectic Head Head exam: atraumatic and normocephalic Eye Eye exam: Present normal appearance, PERRL and EOMI ENT ENT exam: Present normal oropharynx and normal external ear exam Neck Neck exam: Present normal inspection and full ROM Chest Chest inspection: Present normal inspection and symmetric chest wall rise; Absent tenderness Respiratory Respiratory exam: Present wheezes; Absent respiratory distress Cardiovascular Cardiovascular exam: Present normal rhythm and tachycardia Abdominal Exam Abdominal exam: Present soft; Absent distention, tenderness or guarding Extremities Exam Extremities exam: Present normal inspection; Absent edema or joint swelling Back Exam Back exam: Present normal inspection; Absent tenderness Neurological Exam Neurological exam: Present alert and oriented X3; Absent motor sensory deficit Psychiatric Psychiatric exam: Present normal affect and normal mood Skin Skin exam: Present warm, dry and normal color Lymphatic Lymphatic Findings: no adenopathy Medical Decision Making Medical Records Medical records reviewed: Yes I reviewed the patient's medical records. Screening: Per USPSTF and CDC recommendations, given the prevalence of disease in our region, it is our hospital?s policy to screen for HIV and viral Hepatitis for all patients aged 18 and over and those with ongoing risk factors. Shin Inquiry Pt receiving controlled substance: No Shin was queried for this patient: No Vital Signs: 08/08/24 00:22 08/08/24 02:21 08/08/24 02:43 Temperature 98.3 F Temperature Source Oral Pulse Rate 105 H 122 H Pulse Rate [Right] 110 H Respiratory Rate 18 Blood Pressure 162/87 H 133/77 Blood Pressure [Right Arm] 147/87 H Blood Pressure Mean Blood Pressure Mean [Right Arm] 107 Blood Pressure Source [Right Arm] Automatic Cuff Blood Pressure Position [Right Arm] Sitting 02 Sat by Pulse Oximetry 97 100 90 L Oxygen Delivery Method Room Air Oxygen Flow Rate (LPM) 3 3 08/08/24 03:00 08/08/24 03:02 08/08/24 03:30 Temperature Temperature Source Pulse Rate 111 H 117 H 113 H Pulse Rate [Right] Respiratory Rate Blood Pressure 168/88 H 156/78 H Blood Pressure [Right Arm] Blood Pressure Mean Blood Pressure Mean [Right Arm] Blood Pressure Source [Right Arm] Blood Pressure Position [Right Arm] 02 Sat by Pulse Oximetry 93 L 95 Oxygen Delivery Method Oxygen Flow Rate (LPM) 08/08/24 04:00 08/08/24 04:05 08/08/24 04:05 Temperature Temperature Source Pulse Rate 106 H 106 H 107 H Pulse Rate [Right] Respiratory Rate Blood Pressure 115/62 Blood Pressure [Right Arm] Blood Pressure Mean Blood Pressure Mean [Right Arm] Blood Pressure Source [Right Arm] Blood Pressure Position [Right Arm] 02 Sat by Pulse Oximetry 99 Oxygen Delivery Method Oxygen Flow Rate (LPM) 08/08/24 04:34 08/08/24 04:37 08/08/24 05:01 Temperature Temperature Source Pulse Rate 111 H Pulse Rate [Right] Respiratory Rate Blood Pressure 72/45 L 101/61 L 166/90 H Blood Pressure [Right Arm] Blood Pressure Mean 50 71 Blood Pressure Mean [Right Arm] Blood Pressure Source [Right Arm] Blood Pressure Position [Right Arm] 02 Sat by Pulse Oximetry 99 Oxygen Delivery Method Oxygen Flow Rate (LPM) 3 08/08/24 05:15 Temperature 97.9 F Temperature Source Oral Pulse Rate 103 H Pulse Rate [Right] Respiratory Rate 18 Blood Pressure 166/90 H Blood Pressure [Right Arm] Blood Pressure Mean Blood Pressure Mean [Right Arm] Blood Pressure Source [Right Arm] Blood Pressure Position [Right Arm] 02 Sat by Pulse Oximetry Oxygen Delivery Method Nasal Cannula Oxygen Flow Rate (LPM) 3 Lab Data Lab results reviewed: Yes I reviewed the patient's lab results. Lab Results 08/08/24 00:29: WBC 12.5 H, RBC 5.27, Hgb 13.9, Hct 44.5, MCV 84.4, MCH 26.4 L, MCHC 31.2 L, RDW 19.3 H, Plt Count 448 H, MPV 10.4, Neut % (Auto) 86.8 H, Lymph % (Auto) 6.3 L, [facility] % (Auto) 5.2, Eos % (Auto) 0.4, Baso % (Auto) 0.6, Neut # (Auto) 10.8 H, Lymph # (Auto) 0.8, [facility] # (Auto) 0.7, Eos # (Auto) 0.1, Baso # (Auto) 0.1, Sodium 138, Potassium 4.5, Chloride 92 L, Carbon Dioxide 33 H, Anion Gap 17.5 H, BUN 11, Creatinine 0.40 L, Estimated Creat Clear 34, Estimated GFR 159, Est GFR ( Amer) 193, Glucose 160 H, Calcium 10.3 H, Magnesium 1.4 L, Total Bilirubin 0.7, AST 32, ALT 18, Alkaline Phosphatase 114, Total Protein 9.4 H D, Albumin 4.9, Globulin 4.5 H, Albumin/Globulin Ratio 1.1, Lipase 62 08/08/24 00:29 08/08/24 00:29 Orders (Tests/Meds): ED MEDICATIONS Discontinued Medications Generic Name Dose Route Start Last Admin Trade Name Freq PRN Reason Stop Dose Admin Acetaminophen 1,000 mg 08/08/24 01:05 08/08/24 01:32 Acetaminophen 1,000mg/100ml Vial IV 08/08/24 01:06 1,000 mg ONCE ONE Administration Albuterol/Ipratropium 3 ml 08/08/24 02:38 08/08/24 03:01 Ipratropium/Albuterol 3 Ml Neb IH 08/08/24 02:39 3 ml ONCE ONE Administration Droperidol 2.5 mg 08/08/24 02:25 08/08/24 02:36 Droperidol 5mg/2ml Vial IV 08/08/24 02:26 2.5 mg ONCE ONE Administration Magnesium Sulfate 2 gm in 50 mls @ 150 mls/hr 08/08/24 01:05 08/08/24 01:33 Magnesium Sulfate 2gm/50ml Premix IV 08/08/24 01:24 150 mls/hr ONCE ONE Administration Lactated Ringer's 1,000 mls @ 999 mls/hr 08/08/24 01:15 08/08/24 01:33 Lactated Ringer's 1000 Ml Bag IV 08/08/24 02:15 999 mls/hr .Q1H1M CY Administration Lactated Ringer's 1,000 mls @ 999 mls/hr 08/08/24 02:30 08/08/24 02:36 Lactated Ringer's 1000 Ml Bag IV 08/08/24 03:30 999 mls/hr .Q1H1M CY Administration Iopamidol 150 ml 08/08/24 03:28 08/08/24 03:30 Iopamidol-370 (76%);100ml Bottle IV 08/08/24 03:29 150 ml ONCE ONE Administration Ketorolac Tromethamine 15 mg 08/08/24 01:05 08/08/24 01:32 Ketorolac 30mg/Ml Vial IV 08/08/24 01:06 15 mg ONCE ONE Administration Lidocaine HCl 5 ml 08/08/24 03:29 Lidocaine 2% 5ml Pf Vial IH 08/08/24 03:30 ONCE ONE Promethazine HCl 25 mg 08/08/24 01:05 08/08/24 01:32 Promethazine Hcl 25mg/Ml 1ml Vial IV 08/08/24 01:06 25 mg ONCE ONE Administration Sodium Chloride 25 ml 08/08/24 01:05 08/08/24 01:33 Sodium Chloride 0.9% 25ml Bag IV 08/08/24 01:06 25 ml ONCE ONE Administration Sodium Chloride 10 ml 08/08/24 03:28 08/08/24 03:30 Sodium Chloride 0.9% 10ml Syr (Rad Only) IV 08/08/24 03:29 10 ml ONCE ONE Administration ORDERS Category Date Time Status CT abdomen pelvis w con Stat Cat Scan 08/08/24 02:[address] chest w con Stat Cat Scan 08/08/24 02:[address] head/brain wo/w con Stat Cat Scan 08/08/24 02:25 Completed CBC w/Auto Diff [Complete Blood Count Auto Diff] Stat Lab 08/08/24 00:29 Completed CMP [Comprehensive Metabolic Panel] Stat Lab 08/08/24 00:29 Completed Lipase Stat Lab 08/08/24 00:29 Completed MAG [Magnesium] Stat Lab 08/08/24 00:29 Completed Medical Decision Narrative: 68-year-old female with history of lung cancer status post immunotherapy, resection, radiation, history of COPD, paroxysmal A-fib, heart failure presents for worsening nausea and vomiting and headache today.. History was obtained via interactive discussion with patient, family, chart review. On arrival, patient is [afebrile, hemodynamically stable, satting appropriately, alert, oriented x4, GCS 15], moving all extremities spontaneously. Full physical exam performed and significant for benign abdominal exam, no focal neurologic deficits Differential includes but is not limited to migraine headache, tension headache, cholecystitis, pancreatitis, gastroenteritis, sequela of immunotherapy, metastatic lung cancer. Patient was given migraine cocktail and two liter fluid bolus for symptomatic management and correction of underlying abnormalities. Workup initiated including CBC CMP lipase mag. On re-evaluation, patient continues to be symptomatic from a headache and nausea vomiting standpoint. Patient was given 2.[address] imaging of the head chest and abdomen and pelvis were obtained. Patient also had a coughing fit and was given a DuoNeb and lidocaine neb with improvement. Laboratory workup independently interpreted by me and significant for white count of 12.5, minimal hypercalcemia and minimal hypomagnesemia. Lipase normal. LFTs normal. Imaging independently interpreted by me and significant for no obvious intracranial lesion, stable/improved CT chest from recent scan, abdomen showed no significant abnormalities. Some constipation noted. See radiology read for full review of final results. EKG independently interpreted by me and significant for sinus tachycardia with rate of 115, QT 379, no obvious ischemic changes. Interpreted at 0350. On reassessment, patient was sleeping and had a couple low blood pressures noted. Upon awakening patient blood pressure returned to normal. She now reports that her headache is significantly proved and she is no longer nauseous. I discussed with her the utility of admission for intractable nausea and vomiting but she reports that she is feeling better and would like to go home. I discharged her with a prescription for rectal Phenergan to take if she is unable to take oral medications. Return precautions given. Given patient history, exam and workup, patient's presentation most likely represents migraine headache with nausea and vomiting. Procedures Risk/Benefits of Procedure(s) Were Explained: Yes Critical Care Critical Care Time Critical Care Time: No
[2024-08-08 01:22] LABS: Basophils # 0.1 K/mm3 (0-0.2); Basophils % 0.6 % (0.1-2.0); Eosinophils # 0.1 Kmm3 (0.0-0.4); Eosinophils % 0.4 % (0.1-12.0); Hematocrit 44.5 % (37.0-47.0); Hemoglobin 13.9 g/dL (12.2-16.2); Immature Granulocytes # 0.09 10^3uL; Immature Granulocytes % 0.7 %; Lymphocytes # 0.8 K/mm3 (0.7-4.5); Lymphocytes % 6.3 % (10-50); Mean Corpuscular HGB Conc 31.2 g/dL (31.8-35.4); Mean Corpuscular Hemoglobin 26.4 pg (27.0-31.2); Mean Corpuscular Volume 84.4 fl (81-99); Mean Platelet Volume 10.4 fl (7.4-10.4); Monocytes # 0.7 K/mm3 (0.1-1.0); Monocytes % 5.2 % (1.7-9.3); Neutrophils # 10.8 K/mm3 (1.8-7.8); Neutrophils % 86.8 % (37.0-80.0); Nucleated Red Blood Cells # 0 10^3/uL; Nucleated Red Blood Cells % 0 %; Platelet Count 448 K/mm3 (142-424); Red Blood Count 5.27 M/mm3 (4.20-5.40); Red Cell Distribution Width 19.3 % (11.5-17.5); Red Cell Distribution Width-SD 58.3 fL; White Blood Count 12.5 K/mm3 (4.8-10.8)
[2024-08-08 01:26] LABS: Alanine Aminotransferase 18 U/L (12-78); Albumin Level 4.9 g/dl (3.5-5.0); Albumin/Globulin Ratio 1.1 (1.1-1.8); Alkaline Phosphatase 114 U/L (38-126); Anion Gap 17.5 mEq/L (5-15); Aspartate Amino Transferase 32 U/L (14-36); Bilirubin,Total 0.7 mg/dl (0.2-1.3); Blood Urea Nitrogen 11 mg/dl (7-17); Calcium 10.3 mg/dl (8.4-10.2); Carbon Dioxide 33 mmol/L (22.0-30.0); Chloride 92 mmol/L (98-107); Creatinine Clearance Estimated 34 mL/min (50-200); Estimated Glomerular Filt Rate 159 ml/min (>60); GFR (African American) 193 ML/MIN (>60); Globulin 4.5 g/dL (1.3-3.2); Glucose 160 mg/dl (74-100); Lipase 62 U/L (23-300); Magnesium 1.4 mg/dl (1.6-2.3); Potassium 4.5 mmoL/L (3.5-5.1); Sodium 138 mmol/L (136-145); Total Protein,Serum 9.4 g/dl (6.3-8.2)
[2024-08-08] MEDS: ACETAMINOPHEN 1,000MG/100ML VIAL 1000 MG IV (01:32)
[2024-08-08] MEDS: PROMETHAZINE HCL 25MG/ML 1ML VIAL 25 MG IV (01:32)
[2024-08-08] MEDS: KETOROLAC 30MG/ML VIAL 15 MG IV (01:32)
[2024-08-08] MEDS: MAGNESIUM SULFATE IN WATER 2 GM/50 ML PIGGYBACK IV (01:33)
[2024-08-08] MEDS: LACTATED RINGERS 1000ML 1,000 ML 999 ML IV ×2 (01:33→02:36)
[2024-08-08] MEDS: SODIUM CHLORIDE 0.9% 25ML BAG 25 ML IV (01:33)
--- NOTE | 2024-08-08 02:25 | CT_ITS ---
PROCEDURE INFORMATION: Exam: CT Chest With Contrast; Diagnostic Exam date and time: 08/08/2024 3:18 AM Age: 68 years old Clinical indication: Condition or disease; Lung condition and disease; Cancer of the lung; Bilateral; Unspecified; Additional info: Lung cancer, n/v abd pain TECHNIQUE: Imaging protocol: Diagnostic computed tomography of the chest with contrast. Radiation optimization: All CT scans at this facility use at least one of these dose optimization techniques: automated exposure control; mA and/or kV adjustment per patient size (includes targeted exams where dose is matched to clinical indication); or iterative reconstruction. Contrast material: ISOVUE; Contrast volume: 75 ml; Contrast route: IV; COMPARISON: CT ANGIO CHEST PE PROTOCOL 07/09/2024 2:30 PM FINDINGS: Thyroid: Stable subcentimeter thyroid nodules. Lungs: Moderate centrilobular emphysema. Interval decrease in linear soft tissue density in the right upper lobe and posterior lower lobe. Residual reticulonodular opacities in the right upper lobe. Pleural spaces: Unremarkable. No pneumothorax. No pleural effusion. Heart: Unremarkable. No cardiomegaly. No pericardial effusion. Coronary arteries: Mild calcification of the coronary arteries. Lymph nodes: Calcified hilar and mediastinal lymph nodes. Vasculature: Extensive calcification of the aorta. Bones/joints: Unremarkable. No acute fracture. Soft tissues: Unremarkable. IMPRESSION: 1. Interval decrease in linear soft tissue density in the right upper lobe and posterior lower lobe. Residual reticulonodular opacities in the right upper lobe. Compatible with resolving airspace disease. 2. Moderate centrilobular emphysema. 3. Atherosclerotic vascular disease. COMMENTS: The presence of pulmonary emphysema on CT is an independent risk factor for lung cancer. In the absence of a history or active diagnosis of lung cancer, it is recommended that this patient with emphysema be evaluated for enrollment in a low dose CT lung cancer screening program.
--- NOTE | 2024-08-08 02:25 | CT_ITS ---
PROCEDURE INFORMATION: Exam: CT Head Without And With Contrast Exam date and time: 08/08/2024 2:50 AM Age: 68 years old Clinical indication: Pain; Headache; Additional info: Lung cancer, worsening headahe TECHNIQUE: Imaging protocol: Computed tomography of the head without and with contrast. Radiation optimization: All CT scans at this facility use at least one of these dose optimization techniques: automated exposure control; mA and/or kV adjustment per patient size (includes targeted exams where dose is matched to clinical indication); or iterative reconstruction. Contrast material: ISOVUE; Contrast volume: 75 ml; Contrast route: IV; COMPARISON: MR HEAD/BRAIN WO CON 09/30/2023 1:26 PM FINDINGS: Limitations: Motion artifact degrades image quality and limits the sensitivity of this examination. Brain: Normal. No hemorrhage. Unremarkable white matter. No mass effect. No enhancing mass. Cerebral ventricles: No ventriculomegaly. Paranasal sinuses: Visualized sinuses are unremarkable. No fluid levels. Mastoid air cells: Visualized mastoid air cells are well aerated. Bones: Unremarkable. No acute fracture. Soft tissues: Unremarkable. IMPRESSION: No acute findings.
--- NOTE | 2024-08-08 02:25 | CT_ITS ---
PROCEDURE INFORMATION: Exam: CT Abdomen And Pelvis With Contrast Exam date and time: 08/08/2024 3:18 AM Age: 68 years old Clinical indication: Abdominal pain; Additional info: Abd pain, n/v, HX lung cancer TECHNIQUE: Imaging protocol: Computed tomography of the abdomen and pelvis with contrast. Radiation optimization: All CT scans at this facility use at least one of these dose optimization techniques: automated exposure control; mA and/or kV adjustment per patient size (includes targeted exams where dose is matched to clinical indication); or iterative reconstruction. Contrast material: ISOVUE; Contrast volume: 75 ml; Contrast route: IV; COMPARISON: CT ABDOMEN PELVIS W CON 07/09/2024 2:30 PM FINDINGS: Liver: Normal. No mass. Gallbladder and biliary ducts: Normal. No calcified stones. No ductal dilation. Pancreas: Normal. No ductal dilation. Spleen: Normal. No splenomegaly. Adrenal glands: Normal. No mass. Kidneys and ureters: Excreted contrast within the bilateral renal collecting systems, ureters and urinary bladder. Stomach and bowel: Diverticulosis of the colon. Large stool burden. Appendix: No evidence of appendicitis. Intraperitoneal space: Unremarkable. No free air. No significant fluid collection. Vasculature: Extensive calcification of the aorta and iliac arteries. Lymph nodes: Unremarkable. No enlarged lymph nodes. Urinary bladder: See Kidneys and ureters finding. Reproductive: Unremarkable as visualized. Bones/joints: Unremarkable. No acute fracture. Soft tissues: Unremarkable. IMPRESSION: 1. No acute findings. 2. Diverticulosis of the colon. 3. Atherosclerotic vascular disease. 4. Constipation.
--- NOTE | 2024-08-08 02:27 | ECG_ITS ---
APPROVED REPORT Exam: Resting ECG HR:115 bpm ECG Measurements Heart Rate 115 AXES GA 165 P 68 QRSd 111 QRS -67 QT 371 T 71 QTc 439 Conclusion SINUS TACHYCARDIA LEFT AXIS DEVIATION [QRS AXIS < -30] POSSIBLE ANTERIOR MYOCARDIAL INFARCTION , OF INDETERMINATE AGE [30 ms Q WAVE IN V3/V4, OR R < 0.2 mV IN V4] ABNORMAL ECG UNCONFIRMED REPORT Electronically signed by : WISAM SIDDIQUI, 08/08/2024 06:39:52
--- NOTE | 2024-08-08 02:27 | PC.NURSE ---
pt ambulates with slow steady gait to restroom with staff assistance and O2.
--- NOTE | 2024-08-08 02:30 | PC.NURSE ---
Pt ambulates with slow steady gait back to assigned room. EKG at the bedside prior to droperidol administration.
[2024-08-08] MEDS: droPERidol 5MG/2ML VIAL 2.5 MG IV (02:36)
--- NOTE | 2024-08-08 02:46 | PC.NURSE ---
respiratory at the bedside
[2024-08-08] MEDS: IPRATROPIUM/ALBUTEROL 3 ML NEB IH (03:01)
--- NOTE | 2024-08-08 03:16 | PC.NURSE ---
Pt put of room for testing.
--- NOTE | 2024-08-08 03:28 | PC.NURSE ---
pt brought back from radiology without incident.
[2024-08-08] MEDS: IOPAMIDOL-370 (76%);100ML BOTTLE 150 ML IV (03:30)
[2024-08-08] MEDS: SODIUM CHLORIDE 0.9% 10ML SYR (RAD ONLY) 10 ML IV (03:30)
--- NOTE | 2024-08-08 05:05 | PC.NURSE ---
provider at the bedside updating on POC
== END 2024-08-08 05:24 | disposition home or self-care (01) ==
PROVIDERS: Emergency Provider Emergency Medicine; PCP Internal Medicine Adolescent Medicine
DX: G43.909 Migraine, unspecified, not intractable, without status migrainosus (principal); R11.2 Nausea with vomiting, unspecified
CPT/HCPCS: 70470; 71260; 74177; 80053; 83690; 83735; 85025; 93005; 96361; 96365; 96375; 99285; J0131; J1790; J1885; J2550; J3475; J7120; Q9967

== ENCOUNTER 2024-08-08 16:07 | Inpatient (IN) | payer BC, OTHER, SELFPAY ==
[2024-08-08] VITALS (16 sets, daily range): BP systolic 95–195; BP diastolic 54–101; PULSE 94–118; RESP 17–42; TEMP 36.4–36.7; O2SAT 89–100; BMI 17.2
--- OUTSIDE RECORDS SUMMARY | 2024-08-08 16:23 | XMS_ITS | Clinical Summary ---
Author Organization [facility] Address [address] [place] [address] Care Team Providers Care Productivity Engineer Name Role Phone Mk Reagan MD Primary Care Provider [phone] Hossein Greer MD Unavailable [phone] Allergies Active Allergy Reactions Criticality Noted Date [...] and Family Not on file 01/15/2024 Attends Religion Services Not on file 01/14 Active Member [...] any time in the past 12 m [facility], were you homeless or living in a chcf (including now)? No 01/15/2024 Utilities Answer Date [...] C Screening 1955 [facility]-/Child/Adol SDOH Screenings 1955 [id number] Vaccine (#1) 1961 [facility]-DTaP,Tdap,and Td Vaccine s [...] this topic Medical Devices Implanted Type Area Language Teacher Device Identifier Shelf Expiration Date Model / Serial / Lot Stent Stent Heart Description:Two heart stents in right side Stent Stent Neck Stent Bonastent Tracheal/Bronch ial [id number] - [id number] Implanted:Qty: 1 on 01/21/2024 by Cesar Irving MD at [facility] [employer]-[id number] 09/09/2026 [facility]-[id number] / / [id number] Procedures Procedure Name Priority Date/Time Associated Diagnosis Comments HEMOGLOBIN A1C Routine 01/15/2024 1:06 AM EST from Last 3 Months or Most Recently Relevant to Health Maintenance Results * (ABNORMAL) Hemoglobin A1c (01/15/2024 1:06 AM EST) Hemoglobin A1c 5.9(H) <5.7 % 01/15/2024 2:59 AM EST [facility] Blood Arterial blood specimen / Unknown Venipuncture / Unknown 01/15/2024 1:06 AM EST 01/15/2024 1:12 AM EST Narrative [facility] - 01/15/2024 2:59 AM EST HA1C Interpretive Data: Diagnosis of Diabetes: Diabetic > or = 6.5% Pre-diabetic 5.7 to 6.4% Non-diabetic < or = 5.6% Glycemic Targets for Type I and Type II Diabetics: Non- Adults <7.0% Adults <6.0% Children and Adolescents <7.5% Source: [place] [employer]. Standards of medical care in diabetes,2017. Diabetes Care.2017:40 (suppl 1):S1-S135. HbA1c assay performed by an ion-exchange chromatography method that is certified traceable to the DCCT. Orlando Oseguera DO LAB BLOOD ORDERABLES Final Result Performing Organization Address City/State/[facility] de Phone Number [facility] [address] [place] [address] from Last 3 Months or Most Recently Relevant to Health Maintenance Insurance HOA Advance Directives * Full Code (Latest Code Status on File) Date Activated Date Inactivated Comments 01/18/2024 5:01 PM 01/26/2024 8:47 PM Question Answer Comments Patient has decision-making capacity? No Healthcare Surrogate: Adult child of the patient Care Teams Productivity Engineer Relationship Specialty Start Date End Date Mk Reagan MD [address] [facility] [address] [place] [id number] PCP - General Internal Medicine 01/15/24 Hossein Greer MD [address] [facility] [address] [place] [id number] Consulting Physician Radiation Oncology 02/01/24
--- OUTSIDE RECORDS SUMMARY | 2024-08-08 16:23 | XMS_ITS ---
Author Organization [facility] Address [address] [place] [address] Care Team Providers Care Sub Plant Manager Name Role Phone Mk Reagan MD Primary Care Provider [phone] Kehinde Greer MD Unavailable [phone] Active Problems Problem Noted Date Diagnosed Date [...]
--- OUTSIDE RECORDS SUMMARY | 2024-08-08 16:23 | XMS_ITS | Encounter Summary ---
Author Organization Healthcare Address [address] [place] [address] Care Team Providers Care Laborer Sawmill Name Role Phone Mk Reagan MD Primary Care Provider [phone] Kehinde Greer MD Unavailable [phone] Encounter Details Date Type Department Care Team (Late st Contact Info) Description 01/18/2024 Lab Requisition [facility] [address] [place] [address] Mu Carrillo MD [address] [facility] [address] [place] [address] Encounter for general adult medical [...] and Family Not on file 01/15/2024 Attends Yazdanism Services Not on file 01/14 Active Member [...] any time in the past 12 m [facility], were you homeless or living in a custodial (including now)? No 01/15/2024 Utilities Answer Date [...] at day 1 01/19/2024 8:51 AM EST [facility] Swab (Nares and Tiffany Rectal) 01/18/2024 8:00 AM EST 01/18/2024 11:29 AM EST us Mu Carrillo MD LAB MICROBIOLOGY - GEN ERAL ORDERABLES Final Result [facility] [address] [place] [address] documented in this encounter Visit Diagnoses Diagnosis Encounter for general adult medical examination without abnormal findings documented in this encounter Additional Health Concerns Assessment Noted Time A Body Mass Index follow-up plan has been documented for the patient 01/26/2024 5:13 PM EST documented as of this encounter Care Teams Laborer Sawmill Relationship Specialty Start Date End Date Mk Reagan MD [address] [place] [address] PCP - General Internal Medicine 01/15/24 Kehinde Greer MD [address] [facility] [address] [place] [address] Consulting Physician Radiation Oncology 02/01/24 documented as of this encounter
--- OUTSIDE RECORDS SUMMARY | 2024-08-08 16:23 | XMS_ITS | Encounter Summary ---
Author Organization [facility] Address [address] [place] [address] Care Team Providers Care Collective Bargaining Specialist Name Role Phone Mk Reagan MD Primary Care Provider [phone] Kehinde Greer MD Unavailable [phone] Encounter Details Date Type Department Care Team (Late st Contact Info) Description 01/19/2024 Lab Requisition [facility] [address] [place] [address] Mu Carrillo MD [address] [facility] [address] [place] [address] Encounter for general adult medical [...] and Family Not on file 01/15/2024 Attends Protestant Services Not on file 01/14 Active Member [...] time in the past 12 m [facility], were you homeless or living in a longterm (including now)? No 01/15/2024 Utilities Answer Date [...] at day 1 01/20/2024 4:06 AM EST [facility] Swab (Nares and Tiffany Rectal) 01/19/2024 6:00 AM EST 01/19/2024 7:21 AM EST us Mu Carrillo MD LAB MICROBIOLOGY - GEN ERAL ORDERABLES Final Result [facility] [address] [place] [address] documented in this encounter Visit Diagnoses Diagnosis Encounter for general adult medical examination without abnormal findings documented in this encounter Additional Health Concerns Assessment Noted Time A Body Mass Index follow-up plan has been documented for the patient 01/26/2024 5:13 PM EST documented as of this encounter Care Teams Collective Bargaining Specialist Relationship Specialty Start Date End Date Mk Reagan MD [address] [place] [address] PCP - General Internal Medicine 01/15/24 Kehinde Greer MD [address] [facility] [address] [place] [address] Consulting Physician Radiation Oncology 02/01/24 documented as of this encounter
[2024-08-08] MEDS: FAMOTIDINE 20MG/2ML VIAL 20 MG IV (17:15)
[2024-08-08] MEDS: KETOROLAC 30MG/ML VIAL 30 MG IV (17:15)
[2024-08-08] MEDS: ONDANSETRON 4MG/2ML VIAL 4 MG IV (17:16)
[2024-08-08] MEDS: 0.9 % SODIUM CHLORIDE 1000ML 1,000 ML 999 ML IV ×2 (17:16→19:43)
[2024-08-08 17:18] LABS: Basophils % 0.3 % (0.1-2.0); Eosinophils % 0.2 % (0.1-12.0); Hematocrit 38.9 % (37.0-47.0); Hemoglobin 12.6 g/dL (12.2-16.2); Immature Granulocytes # 0.07 10^3uL; Immature Granulocytes % 0.5 %; Lymphocytes # 0.6 K/mm3 (0.7-4.5); Lymphocytes % 4.3 % (10-50); Mean Corpuscular HGB Conc 32.4 g/dL (31.8-35.4); Mean Corpuscular Hemoglobin 26.8 pg (27.0-31.2); Mean Corpuscular Volume 82.8 fl (81-99); Mean Platelet Volume 9.7 fl (7.4-10.4); Monocytes # 0.8 K/mm3 (0.1-1.0); Monocytes % 6.4 % (1.7-9.3); Neutrophils # 11.5 K/mm3 (1.8-7.8); Neutrophils % 88.3 % (37.0-80.0); Nucleated Red Blood Cells # 0 10^3/uL; Nucleated Red Blood Cells % 0 %; Platelet Count 403 K/mm3 (142-424); Red Cell Distribution Width 18.1 % (11.5-17.5); Red Cell Distribution Width-SD 55.1 fL
--- NOTE | 2024-08-08 17:25 | HMH.EDGENADL ---
Discharge Plan Disposition Patient Disposition: Admitted Clinical Impressions Clinical Impression: Status migrainosus Discharge ED Provider: Austin Keith General Adult HPI <Kya Olsen (ED), [employer]MENT[employer]UCATION [employer]ER - Last Filed: 08/08/24 21:56> General Chief complaint: Headache Stated complaint: Severe Migraine; Nausea Symptoms worsning Time Seen by Provider: 08/08/24 16:12 Mode of Arrival: Ambulatory Source of Information: Patient Description of Symptoms (Recalled from ER Triage Doc. by RN): Patient complaining of headache and nausea, states she cannot take anything for her headache because she can't keep any medication down. Patient was just seen in our ER for same complaint this am and discharged at 0530, and she states pain returned at 0700. History of Present Illness HPI narrative: 68-year-old female presents to the ED today for complaint of headache, nausea, vomiting. Patient states that she was discharged this morning at 5 AM and her headache had gone away at 7 AM she says she got sick again. She says now her urine is cloudy because she has not drink as much. Patient states that her blood pressure is high but she says it is only high when she is in pain. She says this morning she had her head scanned, stomach and chest scan. She does tell me that she is on Keytruda and her dose was just increased. Related Data Home Medications ?Medication ?Instructions ?Recorded ?Confirmed amiodarone 200 mg tablet 200 mg PO DAILY 07/10/24 08/02/24 megestrol 400 mg/10 mL (40 mg/mL) 400 mg PO BID 07/10/24 08/02/24 oral suspension temazepam 7.5 mg capsule 7.5 mg PO HSP PRN Sleep 07/10/24 08/02/24 apixaban 5 mg tablet (Eliquis) 5 mg PO BID 08/02/24 08/02/24 trazodone 50 mg tablet 25 mg PO HS 08/02/24 08/02/24 Previous Rx's ?Medication ?Instructions ?Recorded oxycodone 5 mg tablet 5 mg PO BIDP PRN Pain #60 tabs 07/07/24 amoxicillin 500 mg-potassium 1 tab PO TID 4 days #12 tabs 07/11/24 clavulanate 125 mg tablet (Augmentin) doxycycline hyclate 100 mg tablet 100 mg PO BID 4 days #8 tabs 07/11/24 ondansetron HCl 4 mg tablet 4 mg PO Q8H PRN nausea and 07/11/24 vomiting #20 tabs umeclidinium 62.5 mcg-vilanterol 1 inh inhalation DAILY 30 days #60 07/11/24 25 mcg/actuation powdr for ea inhalation (Anoro Ellipta) promethazine 25 mg rectal 25 mg FL Q6H PRN nausea and 08/08/24 suppository vomiting #24 ea Allergies Allergy/AdvReac Type Severity Reaction Status Date / Time diazepam AdvReac Severe Vomiting Verified 08/02/24 12:53 aspirin AdvReac Other Verified 08/02/24 12:53 PFS <Kya Olsen (ED), [employer] EDUCATION TEACHER - Last Filed: 08/08/24 21:56> [facility] Disclaimer: The information contained in this section may have been updated after the patient was seen, as this information can be updated by other users. Medical History Bilateral pneumonia Dizziness Crescendo angina Headache Right middle lobe pneumonia Acute exacerbation of chronic obstructive pulmonary disease GI bleed Sepsis Acute on chronic HFrEF (heart failure with reduced ejection fraction) Iron deficiency anemia Abnormal cardiovascular stress test Paroxysmal atrial fibrillation Lung collapse Angina pectoris Acute and chronic respiratory failure with hypoxia Atrial fibrillation with RVR Primary lung cancer Acute hypoxemic respiratory failure Lung cancer Orthopnea Hemoptysis Smoking greater than 30 pack years Pulmonary emphysema History of lung cancer in adulthood Hilar lymphadenopathy Nodule of right lung Stenosis of carotid artery Cancer Migraine Heart attack NSCLC of left lung Anxiety Tooth abscess Antibiotics and diflucan for vaginitis from antibiotics. F/U with Dr Sherwood Surgical History History of bladder surgery History of heart artery stent History of hysterectomy Family History Other Cancer Heart attack Hypertension Stroke Social History Smoking Status: Current every day smoker tobacco type: cigarettes packs per day: 1 alcohol intake: never substance use type: denies use current occupational status: other Travel in the last 8 weeks?: None Have you lived/traveled outside [place] in past 30 days?: No Contact w/someone who lives/traveled outside US past 30 days?: No Exposure to someone with infectious disease in past 14 days?: No Do you have a fever (greater than 100.4 F or 38 C)?: No Have you tested positive for COVID-19?: No Exposed to someone with COVID-19 in past 14 days?: No Do you have a sore throat?: No Do you have a cough?: No Do you have any weakness?: No Do you have any diarrhea?: No Are you experiencing any unusual bleeding?: No Do you have any muscle aches/pain?: No Do you have any abdominal pain?: No Are you experiencing loss of taste or smell?: No Other Medical History Have you received the Flu Vaccine for this season: No Have you received the Pneumonia Vaccine: No <Kya Olsen (ED), [employer]UC[employer] TE[employer]ER - Last Filed: 08/08/24 21:56> ROS Obtained: Yes Systems reviewed as appropriate & no additional complaints except as documented Constitutional Constitutional: Reports as per HPI Physical Exam <Kya Olsen (ED), [employer] EDUCATION TE[employer]ER - Last Filed: 08/08/24 21:56> General General appearance: alert Head Head exam: atraumatic and normocephalic Eye Eye exam: Present PERRL and EOMI ENT ENT exam: Present normal oropharynx and mucous membranes moist Neck Neck exam: Present normal inspection, full ROM and trachea midline Respiratory Respiratory exam: Present normal lung sounds bilaterally Cardiovascular Cardiovascular exam: Present regular rate, normal rhythm, normal heart sounds, +S1 and +S2 Abdominal Exam Abdominal exam: Present soft and normal bowel sounds Extremities Exam Extremities exam: Present normal inspection, full ROM and normal capillary refill Neurological Exam Neurological exam: Present alert, oriented X3 and normal gait Skin Skin exam: Present warm, dry and intact Medical Decision Making <Kya Olsen (ED), [employer] EDUCATION TEACHER - Last Filed: 08/08/24 21:56> Medical Records Screening: Per USPSTF and CDC recommendations, given the prevalence of disease in our region, it is our hospital?s policy to screen for HIV and viral Hepatitis for all patients aged 18 and over and those with ongoing risk factors. Shin Inquiry Pt receiving controlled substance: No Shin was queried for this patient: No Vital Signs: 08/08/24 16:25 08/08/24 16:30 08/08/24 17:00 Temperature 97.5 F L Temperature Source Oral Pulse Rate 105 H 105 H Pulse Rate [Right Radial] 107 H Respiratory Rate 17 Blood Pressure 177/90 H 169/94 H Blood Pressure [Right Arm] 183/88 H Blood Pressure Mean [Right Arm] 119 Blood Pressure Source [Right Arm] Automatic Cuff Blood Pressure Position [Right Arm] Supine 02 Sat by Pulse Oximetry 100 99 99 Oxygen Delivery Method Room Air 08/08/24 17:30 08/08/24 18:00 08/08/24 18:31 Temperature Temperature Source Pulse Rate 105 H 105 H 109 H Pulse Rate [Right Radial] Respiratory Rate 31 H Blood Pressure 195/99 H 186/98 H 178/96 H Blood Pressure [Right Arm] Blood Pressure Mean [Right Arm] Blood Pressure Source [Right Arm] Blood Pressure Position [Right Arm] 02 Sat by Pulse Oximetry 99 99 99 Oxygen Delivery Method Room Air 08/08/24 19:30 08/08/24 20:00 08/08/24 20:20 Temperature Temperature Source Pulse Rate 110 H 117 H 118 H Pulse Rate [Right Radial] Respiratory Rate 35 H 42 H 17 Blood Pressure 171/95 H 180/98 H 176/94 H Blood Pressure [Right Arm] Blood Pressure Mean [Right Arm] Blood Pressure Source [Right Arm] Blood Pressure Position [Right Arm] 02 Sat by Pulse Oximetry 99 98 99 Oxygen Delivery Method 08/08/24 20:30 08/08/24 21:00 08/08/24 21:30 Temperature Temperature Source Pulse Rate 117 H 115 H 116 H Pulse Rate [Right Radial] Respiratory Rate 38 H 39 H 39 H Blood Pressure 173/96 H 172/92 H 166/93 H Blood Pressure [Right Arm] Blood Pressure Mean [Right Arm] Blood Pressure Source [Right Arm] Blood Pressure Position [Right Arm] 02 Sat by Pulse Oximetry 99 97 90 L Oxygen Delivery Method 08/08/24 22:00 08/08/24 22:31 Temperature Temperature Source Pulse Rate 115 H 94 H Pulse Rate [Right Radial] Respiratory Rate 37 H 20 Blood Pressure 177/101 H 95/54 L Blood Pressure [Right Arm] Blood Pressure Mean [Right Arm] Blood Pressure Source [Right Arm] Blood Pressure Position [Right Arm] 02 Sat by Pulse Oximetry 89 L 98 Oxygen Delivery Method Lab Data Lab Results 08/08/24 17:15: WBC 13.0 H, RBC 4.70, Hgb 12.6, Hct 38.9, MCV 82.8, MCH 26.8 L, MCHC 32.4, RDW 18.1 H, Plt Count 403, MPV 9.7, Neut % (Auto) 88.3 H, Lymph % (Auto) 4.3 L, [place] % (Auto) 6.4, Eos % (Auto) 0.2, Baso % (Auto) 0.3, Neut # (Auto) 11.5 H, Lymph # (Auto) 0.6 L, [place] # (Auto) 0.8, Eos # (Auto) 0.0, Baso # (Auto) 0.0, PT 10.5, INR 0.94, Sodium 129 L, Potassium 4.6, Chloride 90 L, Carbon Dioxide 32 H, Anion Gap 11.6, BUN 9, Creatinine 0.40 L, Estimated Creat Clear 34, Estimated GFR 159, Est GFR ( Amer) 193, Glucose 135 H, Calcium 9.2, Magnesium 1.6 D, Total Bilirubin 0.7, AST 31, ALT 16, Alkaline Phosphatase 97, Total Protein 8.6 H, Albumin 4.4 D, Globulin 4.2 H, Albumin/Globulin Ratio 1.0 L, Lipase 39 08/08/24 19:00: Urine Color Yellow, Urine Appearance Clear, Urine pH 8.0, Ur Specific [place] 1.020, Urine Protein Negative, Urine Glucose (UA) Negative, Urine Ketones Trace, Urine Blood Negative, Urine Nitrate Negative, Urine Bilirubin Negative, Urine Urobilinogen 0.2, Ur Leukocyte Esterase Negative, Urine WBC Occasional, Ur Squamous Epith Cells Occasional, Amorphous Sediment 2+, Urine Bacteria 2+ 08/08/24 17:15 08/08/24 17:15 Orders (Tests/Meds): ED MEDICATIONS Generic Name Dose Route Start Last Admin Trade Name Freq PRN Reason Stop Dose Admin Acetaminophen 650 mg 08/08/24 22:09 Acetaminophen 325mg Tab PO 09/07/24 22:08 Q4HP PRN Fever or Mild Pain (1-3) Apixaban 5 mg 08/08/24 22:15 Apixaban 5mg Tablet PO 09/07/24 22:14 BID CY Enoxaparin Sodium 40 mg 08/09/24 09:00 Enoxaparin 40mg/0.4ml Syringe SUBCUT 09/08/24 08:59 DAILY CY Hydromorphone HCl 1 mg 08/08/24 22:09 Hydromorphone 2mg/Ml Syringe IV 09/07/24 22:08 Q2HP PRN Severe Pain (7-10) Magnesium Sulfate 2 gm in 50 mls @ 50 mls/hr 08/08/24 21:47 08/08/24 22:08 Magnesium Sulfate 2gm/50ml Premix IV 08/08/24 22:46 50 mls/hr ONCE ONE Administration Irbesartan 75 mg 08/08/24 22:11 Irbesartan 75mg Tablet PO 08/08/24 22:12 ONCE ONE Ondansetron HCl 4 mg 08/08/24 22:09 Ondansetron 4mg/2ml Vial IV 09/07/24 22:08 Q8HP PRN Nausea Pantoprazole Sodium 40 mg 08/09/24 21:00 Pantoprazole 40mg Tablet PO 09/08/24 20:59 HS CY Promethazine HCl 25 mg 08/08/24 22:09 Promethazine Hcl 25mg/Ml 1ml Vial IV 09/07/24 22:08 Q6HP PRN Nausea And Vomiting Sodium Chloride 8 ml 08/08/24 16:23 Sodium Chloride 0.9% 10ml Vial IV 09/07/24 16:22 NEEDED PRN dilute pepcid Trazodone HCl 25 mg 08/09/24 21:00 Trazodone 50mg Tablet PO 09/08/24 20:59 HS COUNT INCLUDES THE [facility] Discontinued Medications Generic Name Dose Route Start Last Admin Trade Name Dennise PRN Reason Stop Dose Admin Acetaminophen 1,000 mg 08/08/24 19:02 08/08/24 19:41 Acetaminophen 1,000mg/100ml Vial IV 08/08/24 19:03 1,000 mg ONCE ONE Administration Dexamethasone Sodium Phosphate 8 mg 08/08/24 17:18 08/08/24 17:39 Dexamethasone 4mg/Ml 1ml Vial IV 08/08/24 17:19 8 mg ONCE ONE Administration Diphenhydramine HCl 25 mg 08/08/24 19:02 08/08/24 19:41 Diphenhydramine 50mg/Ml Vial IV 08/08/24 19:03 25 mg ONCE ONE Administration Droperidol 2.5 mg 08/08/24 17:41 08/08/24 18:15 Droperidol 5mg/2ml Vial IV 08/08/24 17:42 2.5 mg ONCE ONE Administration Famotidine 20 mg 08/08/24 16:23 08/08/24 17:15 Famotidine 20mg/2ml Vial IV 08/08/24 16:24 20 mg ONCE ONE Administration Hydromorphone HCl 1 mg 08/08/24 21:57 08/08/24 22:08 Hydromorphone 2mg/Ml Syringe IV 08/08/24 21:58 1 mg ONCE ONE Administration Sodium Chloride 1,000 mls @ 999 mls/hr 08/08/24 16:23 08/08/24 17:16 Sod Chlor 0.9% 1000ml Bag IV 08/08/24 17:23 999 mls/hr .Q1H1M ONE Administration Sodium Chloride 1,000 mls @ 999 mls/hr 08/08/24 19:02 08/08/24 19:43 Sod Chlor 0.9% 1000ml Bag IV 08/08/24 20:02 999 mls/hr .Q1H1M ONE Administration Ketorolac Tromethamine 30 mg 08/08/24 16:23 08/08/24 17:15 Ketorolac 30mg/Ml Vial IV 08/08/24 16:24 30 mg ONCE ONE Administration Metoclopramide HCl 10 mg 08/08/24 19:02 08/08/24 19:41 Metoclopramide Hcl 10mg/2ml Vial IVP 08/08/24 19:03 10 mg ONCE ONE Administration Ondansetron HCl 4 mg 08/08/24 16:23 08/08/24 17:16 Ondansetron 4mg/2ml Vial IV 08/08/24 16:24 4 mg ONCE ONE Administration Sodium Chloride 25 ml 08/08/24 22:09 Sodium Chloride 0.9% 25ml Bag IV 08/08/24 22:10 ONCE ONE ORDERS Category Date Time Status Chest XR -- portable [XR chest portable] Stat Exams 08/08/24 20:36 Completed CBC [Complete Blood Count Auto Diff] Stat Lab 08/08/24 17:15 Completed Complete Blood Count Auto Diff AMLAB Lab 08/09/24 06:00 Ordered Comprehensive Metabolic Panel AMLAB Lab 08/09/24 06:00 Ordered Comprehensive Metabolic Panel Stat Lab 08/08/24 17:15 Completed D-Dimer Stat Lab 08/08/24 20:35 Ordered Lipase Stat Lab 08/08/24 17:15 Completed Lipase Stat Lab 08/08/24 20:35 Ordered Lipid Panel AMLAB Lab 08/09/24 06:00 Ordered Magnesium AMLAB Lab 08/09/24 06:00 Ordered Magnesium Stat Lab 08/08/24 17:15 Completed Magnesium Stat Lab 08/08/24 20:35 Ordered PT INR [Prothrombin Time INR] Stat Lab 08/08/24 17:15 Completed PT INR [Prothrombin Time INR] Stat Lab 08/08/24 20:35 Ordered Phosphorous AMLAB Lab 08/09/24 06:00 Ordered Urinalysis and Microscopic Stat Lab 08/08/24 19:00 Completed Urine Culture Stat Micro 08/08/24 19:00 Received Medical Decision Narrative: patient is a 68-year-old female presenting to the emergency department for evaluation of migraine, nausea and vomiting. Patient is hemodynamically stable and nontoxic-appearing upon arrival, afebrile. Differential diagnosis includes migraine, viral illness, among others. Workup will be conducted with hematologic labs. Initial inventions include crystalloid bolus, analgesics. This patient was placed in observation at 1900. Medical necessity for observational status is observation for headache, intractable pain requiring repeat doses of medications. The patient was provided serial reevaluations, and cardiac monitoring as well as frequent medications. Patient was given several medications while here and in observation. She was given Tylenol IV, Reglan, Benadryl, Toradol, Zofran, droperidol and 2 L of IV fluids. Her pain improved but did not go away for a few minutes but then returned. Her heart rate increased and her blood pressure increased during this time. Patient says that when she is in pain this happens. I did add labs and a chest x-ray. I did look over the CT chest, head and abdomen that Dr. Spangler performed this morning before she was discharged. Those were all reassuring. However, I did talk to the hospitalist Dr. Josafat Harris about admission after this. Of observation of approximately 3 hours. I feel the patient would do better being admitted for her continuing symptoms.Dr Harris wants to try giving mag and imitrex before admitting.I will leave patient to Dr Marino to determine disposition <Austin Keith MD - Last Filed: 08/08/24 22:45> Vital Signs: 08/08/24 16:25 08/08/24 16:30 08/08/24 17:00 Temperature 97.5 F L Temperature Source Oral Pulse Rate 105 H 105 H Pulse Rate [Right Radial] 107 H Respiratory Rate 17 Blood Pressure 177/90 H 169/94 H Blood Pressure [Right Arm] 183/88 H Blood Pressure Mean [Right Arm] 119 Blood Pressure Source [Right Arm] Automatic Cuff Blood Pressure Position [Right Arm] Supine 02 Sat by Pulse Oximetry 100 99 99 Oxygen Delivery Method Room Air 08/08/24 17:30 08/08/24 18:00 08/08/24 18:31 Temperature Temperature Source Pulse Rate 105 H 105 H 109 H Pulse Rate [Right Radial] Respiratory Rate 31 H Blood Pressure 195/99 H 186/98 H 178/96 H Blood Pressure [Right Arm] Blood Pressure Mean [Right Arm] Blood Pressure Source [Right Arm] Blood Pressure Position [Right Arm] 02 Sat by Pulse Oximetry 99 99 99 Oxygen Delivery Method Room Air 08/08/24 19:30 08/08/24 20:00 08/08/24 20:20 Temperature Temperature Source Pulse Rate 110 H 117 H 118 H Pulse Rate [Right Radial] Respiratory Rate 35 H 42 H 17 Blood Pressure 171/95 H 180/98 H 176/94 H Blood Pressure [Right Arm] Blood Pressure Mean [Right Arm] Blood Pressure Source [Right Arm] Blood Pressure Position [Right Arm] 02 Sat by Pulse Oximetry 99 98 99 Oxygen Delivery Method 08/08/24 20:30 08/08/24 21:00 08/08/24 21:30 Temperature Temperature Source Pulse Rate 117 H 115 H 116 H Pulse Rate [Right Radial] Respiratory Rate 38 H 39 H 39 H Blood Pressure 173/96 H 172/92 H 166/93 H Blood Pressure [Right Arm] Blood Pressure Mean [Right Arm] Blood Pressure Source [Right Arm] Blood Pressure Position [Right Arm] 02 Sat by Pulse Oximetry 99 97 90 L Oxygen Delivery Method 08/08/24 22:00 08/08/24 22:31 Temperature Temperature Source Pulse Rate 115 H 94 H Pulse Rate [Right Radial] Respiratory Rate 37 H 20 Blood Pressure 177/101 H 95/54 L Blood Pressure [Right Arm] Blood Pressure Mean [Right Arm] Blood Pressure Source [Right Arm] Blood Pressure Position [Right Arm] 02 Sat by Pulse Oximetry 89 L 98 Oxygen Delivery Method Lab Data Lab Results 08/08/24 17:15: WBC 13.0 H, RBC 4.70, Hgb 12.6, Hct 38.9, MCV 82.8, MCH 26.8 L, MCHC 32.4, RDW 18.1 H, Plt Count 403, MPV 9.7, Neut % (Auto) 88.3 H, Lymph % (Auto) 4.3 L, [place] % (Auto) 6.4, Eos % (Auto) 0.2, Baso % (Auto) 0.3, Neut # (Auto) 11.5 H, Lymph # (Auto) 0.6 L, [place] # (Auto) 0.8, Eos # (Auto) 0.0, Baso # (Auto) 0.0, PT 10.5, INR 0.94, Sodium 129 L, Potassium 4.6, Chloride 90 L, Carbon Dioxide 32 H, Anion Gap 11.6, BUN 9, Creatinine 0.40 L, Estimated Creat Clear 34, Estimated GFR 159, Est GFR ( Amer) 193, Glucose 135 H, Calcium 9.2, Magnesium 1.6 D, Total Bilirubin 0.7, AST 31, ALT 16, Alkaline Phosphatase 97, Total Protein 8.6 H, Albumin 4.4 D, Globulin 4.2 H, Albumin/Globulin Ratio 1.0 L, Lipase 39 08/08/24 19:00: Urine Color Yellow, Urine Appearance Clear, Urine pH 8.0, Ur Specific [place] 1.020, Urine Protein Negative, Urine Glucose (UA) Negative, Urine Ketones Trace, Urine Blood Negative, Urine Nitrate Negative, Urine Bilirubin Negative, Urine Urobilinogen 0.2, Ur Leukocyte Esterase Negative, Urine WBC Occasional, Ur Squamous Epith Cells Occasional, Amorphous Sediment 2+, Urine Bacteria 2+ Orders (Tests/Meds): ED MEDICATIONS Generic Name Dose Route Start Last Admin Trade Name Freq PRN Reason Stop Dose Admin Acetaminophen 650 mg 08/08/24 22:09 Acetaminophen 325mg Tab PO 09/07/24 22:08 Q4HP PRN Fever or Mild Pain (1-3) Apixaban 5 mg 08/08/24 22:15 Apixaban 5mg Tablet PO 09/07/24 22:14 BID CY Enoxaparin Sodium 40 mg 08/09/24 09:00 Enoxaparin 40mg/0.4ml Syringe SUBCUT 09/08/24 08:59 DAILY CY Hydromorphone HCl 1 mg 08/08/24 22:09 Hydromorphone 2mg/Ml Syringe IV 09/07/24 22:08 Q2HP PRN Severe Pain (7-10) Magnesium Sulfate 2 gm in 50 mls @ 50 mls/hr 08/08/24 21:47 08/08/24 22:08 Magnesium Sulfate 2gm/50ml Premix IV 08/08/24 22:46 50 mls/hr ONCE ONE Administration Irbesartan 75 mg 08/08/24 22:11 Irbesartan 75mg Tablet PO 08/08/24 22:12 ONCE ONE Ondansetron HCl 4 mg 08/08/24 22:09 Ondansetron 4mg/2ml Vial IV 09/07/24 22:08 Q8HP PRN Nausea Pantoprazole Sodium 40 mg 08/09/24 21:00 Pantoprazole 40mg Tablet PO 09/08/24 20:59 HS COUNT INCLUDES THE [facility] Promethazine HCl 25 mg 08/08/24 22:09 Promethazine Hcl 25mg/Ml 1ml Vial IV 09/07/24 22:08 Q6HP PRN Nausea And Vomiting Sodium Chloride 8 ml 08/08/24 16:23 Sodium Chloride 0.9% 10ml Vial IV 09/07/24 16:22 NEEDED PRN dilute pepcid Trazodone HCl 25 mg 08/09/24 21:00 Trazodone 50mg Tablet PO 09/08/24 20:59 HS COUNT INCLUDES THE [facility] Discontinued Medications Generic Name Dose Route Start Last Admin Trade Name Freq PRN Reason Stop Dose Admin Acetaminophen 1,000 mg 08/08/24 19:02 08/08/24 19:41 Acetaminophen 1,000mg/100ml Vial IV 08/08/24 19:03 1,000 mg ONCE ONE Administration Dexamethasone Sodium Phosphate 8 mg 08/08/24 17:18 08/08/24 17:39 Dexamethasone 4mg/Ml 1ml Vial IV 08/08/24 17:19 8 mg ONCE ONE Administration Diphenhydramine HCl 25 mg 08/08/24 19:02 08/08/24 19:41 Diphenhydramine 50mg/Ml Vial IV 08/08/24 19:03 25 mg ONCE ONE Administration Droperidol 2.5 mg 08/08/24 17:41 08/08/24 18:15 Droperidol 5mg/2ml Vial IV 08/08/24 17:42 2.5 mg ONCE ONE Administration Famotidine 20 mg 08/08/24 16:23 08/08/24 17:15 Famotidine 20mg/2ml Vial IV 08/08/24 16:24 20 mg ONCE ONE Administration Hydromorphone HCl 1 mg 08/08/24 21:57 08/08/24 22:08 Hydromorphone 2mg/Ml Syringe IV 08/08/24 21:58 1 mg ONCE ONE Administration Sodium Chloride 1,000 mls @ 999 mls/hr 08/08/24 16:23 08/08/24 17:16 Sod Chlor 0.9% 1000ml Bag IV 08/08/24 17:23 999 mls/hr .Q1H1M ONE Administration Sodium Chloride 1,000 mls @ 999 mls/hr 08/08/24 19:02 08/08/24 19:43 Sod Chlor 0.9% 1000ml Bag IV 08/08/24 20:02 999 mls/hr .Q1H1M ONE Administration Ketorolac Tromethamine 30 mg 08/08/24 16:23 08/08/24 17:15 Ketorolac 30mg/Ml Vial IV 08/08/24 16:24 30 mg ONCE ONE Administration Metoclopramide HCl 10 mg 08/08/24 19:02 08/08/24 19:41 Metoclopramide Hcl 10mg/2ml Vial IVP 08/08/24 19:03 10 mg ONCE ONE Administration Ondansetron HCl 4 mg 08/08/24 16:23 08/08/24 17:16 Ondansetron 4mg/2ml Vial IV 08/08/24 16:24 4 mg ONCE ONE Administration Sodium Chloride 25 ml 08/08/24 22:09 Sodium Chloride 0.9% 25ml Bag IV 08/08/24 22:10 ONCE ONE ORDERS Category Date Time Status Chest XR -- portable [XR chest portable] Stat Exams 08/08/24 20:36 Completed CBC [Complete Blood Count Auto Diff] Stat Lab 08/08/24 17:15 Completed Complete Blood Count Auto Diff AMLAB Lab 08/09/24 06:00 Ordered Comprehensive Metabolic Panel AMLAB Lab 08/09/24 06:00 Ordered Comprehensive Metabolic Panel Stat Lab 08/08/24 17:15 Completed D-Dimer Stat Lab 08/08/24 20:35 Ordered Lipase Stat Lab 08/08/24 17:15 Completed Lipase Stat Lab 08/08/24 20:35 Ordered Lipid Panel AMLAB Lab 08/09/24 06:00 Ordered Magnesium AMLAB Lab 08/09/24 06:00 Ordered Magnesium Stat Lab 08/08/24 17:15 Completed Magnesium Stat Lab 08/08/24 20:35 Ordered PT INR [Prothrombin Time INR] Stat Lab 08/08/24 17:15 Completed PT INR [Prothrombin Time INR] Stat Lab 08/08/24 20:35 Ordered Phosphorous AMLAB Lab 08/09/24 06:00 Ordered Urinalysis and Microscopic Stat Lab 08/08/24 19:00 Completed Urine Culture Stat Micro 08/08/24 19:00 Received Medical Decision Narrative: patient is a 68-year-old female presenting to the emergency department for evaluation of migraine, nausea and vomiting. Patient is hemodynamically stable and nontoxic-appearing upon arrival, afebrile. Differential diagnosis includes migraine, viral illness, among others. Workup will be conducted with hematologic labs. Initial inventions include crystalloid bolus, analgesics. This patient was placed in observation at 1900. Medical necessity for observational status is observation for headache, intractable pain requiring repeat doses of medications. The patient was provided serial reevaluations, and cardiac monitoring as well as frequent medications. Patient was given several medications while here and in observation. She was given Tylenol IV, Reglan, Benadryl, Toradol, Zofran, droperidol and 2 L of IV fluids. Her pain improved but did not go away for a few minutes but then returned. Her heart rate increased and her blood pressure increased during this time. Patient says that when she is in pain this happens. I did add labs and a chest x-ray. I did look over the CT chest, head and abdomen that Dr. Spangler performed this morning before she was discharged. Those were all reassuring. However, I did talk to the hospitalist Dr. Josafat Harris about admission after this. Of observation of approximately 3 hours. I feel the patient would do better being admitted for her continuing symptoms.Dr Harris wants to try giving mag and imitrex before admitting.I will leave patient to Dr Keith and Kimberly to determine disposition STEPHANIE attestation I was consulted by the STEPHANIE, and we discussed the complexity of problems being addressed. I approved the treatment and management plan for this patient's care in the emergency department, thus performing a substantial portion of the medical decision making. I also personally evaluated the patient at bedside. I assumed care for the patient at about 10 PM as described above. Patient was ultimately admitted to hospital medicine for status migrainosus. Austin Keith MD Critical Care <Kya Olsen (ED), ELEMENTARY SPECIAL EDUCATION TEACHER - Last Filed: 08/08/24 21:56> Critical Care Time Critical Care Time: No
[2024-08-08 17:26] LABS: Alanine Aminotransferase 16 U/L (12-78); Albumin Level 4.4 g/dl (3.5-5.0); Alkaline Phosphatase 97 U/L (38-126); Anion Gap 11.6 mEq/L (5-15); Aspartate Amino Transferase 31 U/L (14-36); Bilirubin,Total 0.7 mg/dl (0.2-1.3); Blood Urea Nitrogen 9 mg/dl (7-17); Calcium 9.2 mg/dl (8.4-10.2); Carbon Dioxide 32 mmol/L (22.0-30.0); Chloride 90 mmol/L (98-107); Creatinine Clearance Estimated 34 mL/min (50-200); Estimated Glomerular Filt Rate 159 ml/min (>60); GFR (African American) 193 ML/MIN (>60); Globulin 4.2 g/dL (1.3-3.2); Glucose 135 mg/dl (74-100); Lipase 39 U/L (23-300); Magnesium 1.6 mg/dl (1.6-2.3); Potassium 4.6 mmoL/L (3.5-5.1); Sodium 129 mmol/L (136-145); Total Protein,Serum 8.6 g/dl (6.3-8.2)
[2024-08-08 17:31] LABS: INR 0.94 (0.9-1.1); Prothrombin Time 10.5 seconds (10.1-12.5)
[2024-08-08] MEDS: DEXAMETHASONE 4MG/ML 1ML VIAL 8 MG IV (17:39)
--- NOTE | 2024-08-08 17:51 | ECG_ITS ---
APPROVED REPORT Exam: Resting ECG HR:107 bpm ECG Measurements Heart Rate 107 AXES NM 151 P 80 QRSd 132 QRS -69 QT 392 T 92 QTc 454 Conclusion SINUS TACHYCARDIA WITH OCCASIONAL SUPRAVENTRICULAR PREMATURE COMPLEXES LEFT AXIS DEVIATION [QRS AXIS < -30] INTRAVENTRICULAR CONDUCTION DELAY [130+ ms QRS DURATION] ABNORMAL ECG UNCONFIRMED REPORT Electronically signed by : WISAM SIDDIQUI, 08/11/2024 01:20:29
[2024-08-08] MEDS: droPERidol 5MG/2ML VIAL 2.5 MG IV (18:15)
[2024-08-08 19:10] LABS: Microscopic, Urine URINE MICROSCOPIC (MICROSCOPIC)
[2024-08-08 19:11] LABS: Appearance,Urine CLEAR (Clear); Bilirubin,Urine Negative (Negative); Blood, Urine Negative (Negative); Color,Urine YELLOW (Yellow); Glucose,Urine (UA) Negative (Negative); Ketones,Urine TRACE (Negative); Leukocyte Esterase,Urine Negative (Negative); Nitrate,Urine Negative (Negative); Protein,Urine Negative (Negative); Urobilinogen,Urine 0.2 EU/dl (0.2)
[2024-08-08 19:19] LABS: Amorphous Sediment,Urine 2+ /lpf; Squamous Epithelial Cell,Urine Occasional #/hpf (0-5); WBC,Urine Occasional #/hpf (0-3)
[2024-08-08 19:20] LABS: Bacteria,Urine 2+ /lpf
[2024-08-08] MEDS: ACETAMINOPHEN 1,000MG/100ML VIAL 1000 MG IV (19:41)
[2024-08-08] MEDS: diphenhydrAMINE 50MG/ML VIAL 25 MG IV (19:41)
[2024-08-08] MEDS: METOCLOPRAMIDE HCL 10MG/2ML VIAL 10 MG IVP (19:41)
--- NOTE | 2024-08-08 20:36 | XR_ITS ---
PROCEDURE INFORMATION: Exam: XR Chest Exam date and time: 08/08/2024 8:47 PM Age: 68 years old Clinical indication: Other: Tachycardic TECHNIQUE: Imaging protocol: Radiologic exam of the chest. Views: 1 view. COMPARISON: CT CHEST W CON 08/08/2024 3:18 AM FINDINGS: Lungs: Hyperexpanded bilateral lungs with central perihilar scarring extending to the lung periphery through the midlung Pleural spaces: No pneumothorax identified Heart/Mediastinum: Unremarkable. No cardiomegaly. Bones/joints: Unremarkable. Other findings: No definite effusions IMPRESSION: Chronic lung disease. No definite acute abnormality.
--- NOTE | 2024-08-08 22:01 | EXP.HP ---
History of Present Illness *Admission Date: 08/08/24 *Reason for visit:: Migraine *History of present illness: 68-year-old female presents to the ED today for complaint of headache, nausea, vomiting. History is largely limited to the severity of her headache. Patient states that she was discharged this morning at 5 AM and her headache had gone away at 7 AM she says she got sick again. She describes her headache as squeezing and severe in nature. Additionally she is having significant nausea and inability to tolerate p.o. for approximately 2 days. She is also having emesis which is nonbloody. She is constipated and not had a bowel movement in 2 days. She denies any other concerning symptoms or complaints at this time. In the emergency department she was given several medications while here and in observation. She was given Tylenol IV, Reglan, Benadryl, Toradol, Zofran, droperidol and 2 L of IV fluids. With no improvement of her symptoms. Repeat CT with and without contrast was performed with no acute intracranial abnormalities. Discussed with patient options including admission versus medications and discharge. Due to her symptoms she is going to be admitted. History independently obtained. Diagnostic and laboratory evaluation dependently interpreted. Prior records were reviewed. Case was discussed with ER provider. [facility] Disclaimer: The information contained in this section may have been updated after the patient was seen, as this information can be updated by other users. Medical History Bilateral pneumonia Dizziness Crescendo angina Headache Right middle lobe pneumonia Acute exacerbation of chronic obstructive pulmonary disease GI bleed Sepsis Acute on chronic HFrEF (heart failure with reduced ejection fraction) Iron deficiency anemia Abnormal cardiovascular stress test Paroxysmal atrial fibrillation Lung collapse Angina pectoris Acute and chronic respiratory failure with hypoxia Atrial fibrillation with RVR Primary lung cancer Acute hypoxemic respiratory failure Lung cancer Orthopnea Hemoptysis Smoking greater than 30 pack years Pulmonary emphysema History of lung cancer in adulthood Hilar lymphadenopathy Nodule of right lung Stenosis of carotid artery Cancer Migraine Heart attack NSCLC of left lung Anxiety Tooth abscess Antibiotics and diflucan for vaginitis from antibiotics. F/U with Dr Sherwood Surgical History History of bladder surgery History of heart artery stent History of hysterectomy Family History Other Cancer Heart attack Hypertension Stroke Social History Smoking Status: Current every day smoker tobacco type: cigarettes packs per day: 1 alcohol intake: never substance use type: denies use current occupational status: other Travel in the last 8 weeks?: None Have you lived/traveled outside US in past 30 days?: No Contact w/someone who lives/traveled outside US past 30 days?: No Exposure to someone with infectious disease in past 14 days?: No Do you have a fever (greater than 100.4 F or 38 C)?: No Have you tested positive for COVID-19?: No Exposed to someone with COVID-19 in past 14 days?: No Do you have a sore throat?: No Do you have a cough?: No Do you have any weakness?: No Do you have any diarrhea?: No Are you experiencing any unusual bleeding?: No Do you have any muscle aches/pain?: No Do you have any abdominal pain?: No Are you experiencing loss of taste or smell?: No Other Medical History Have you received the Flu Vaccine for this season: No Have you received the Pneumonia Vaccine: No Review of Systems Review of Systems Review of systems:: pertinent systems reviewed and negative unless documented below Constitutional Constitutional: Reports headache(s) Eyes Eyes: Denies loss of vision ENT Ears, Nose, Mouth, and Throat: Reports headache(s) *Musculoskeletal Musculoskeletal: Denies numbness *Neurologic Neurologic: Reports headache(s), Denies loss of vision, Denies numbness, Denies other visual disturbances and Denies sensory deficit Meds Home Medications and Allergies Home Medications ?Medication ?Instructions ?Recorded ?Confirmed ?Type oxycodone 5 mg tablet 5 mg PO BIDP PRN Pain #60 tabs 07/07/24 08/02/24 Rx amiodarone 200 mg tablet 200 mg PO DAILY 07/10/24 08/02/24 History megestrol 400 mg/10 mL (40 mg/mL) 400 mg PO BID 07/10/24 08/02/24 History oral suspension temazepam 7.5 mg capsule 7.5 mg PO HSP PRN Sleep 07/10/24 08/02/24 History amoxicillin 500 mg-potassium 1 tab PO TID 4 days #12 tabs 07/11/24 08/02/24 Rx clavulanate 125 mg tablet (Augmentin) doxycycline hyclate 100 mg tablet 100 mg PO BID 4 days #8 tabs 07/11/24 08/02/24 Rx ondansetron HCl 4 mg tablet 4 mg PO Q8H PRN nausea and 07/11/24 08/02/24 Rx vomiting #20 tabs umeclidinium 62.5 mcg-vilanterol 1 inh inhalation DAILY 30 days #60 07/11/24 08/02/24 Rx 25 mcg/actuation powdr for ea inhalation (Anoro Ellipta) apixaban 5 mg tablet (Eliquis) 5 mg PO BID 08/02/24 08/02/24 History trazodone 50 mg tablet 25 mg PO HS 08/02/24 08/02/24 History promethazine 25 mg rectal 25 mg CO Q6H PRN nausea and 08/08/24 Rx suppository vomiting #24 ea New Prescriptions to Start Prescriptions: Allergies Allergy/AdvReac Type Severity Reaction Status Date / Time diazepam AdvReac Severe Vomiting Verified 08/02/24 12:53 aspirin AdvReac Other Verified 08/02/24 12:53 Exam Data for Last 24 hours Vital signs and Labs for Last 24 Hours: Temp Pulse Resp BP Pulse Ox O2 Del Method 97.5 F L 115 H 39 H 172/92 H 97 Room Air 08/08/24 16:25 08/08/24 21:00 08/08/24 21:00 08/08/24 21:00 08/08/24 21:00 08/08/24 18:31 Laboratory Results - last 24 hr 08/08/24 17:15: WBC 13.0 H, RBC 4.70, Hgb 12.6, Hct 38.9, MCV 82.8, MCH 26.8 L, MCHC 32.4, RDW 18.1 H, Plt Count 403, MPV 9.7, Neut % (Auto) 88.3 H, Lymph % (Auto) 4.3 L, [place] % (Auto) 6.4, Eos % (Auto) 0.2, Baso % (Auto) 0.3, Neut # (Auto) 11.5 H, Lymph # (Auto) 0.6 L, [place] # (Auto) 0.8, Eos # (Auto) 0.0, Baso # (Auto) 0.0, PT 10.5, INR 0.94, Sodium 129 L, Potassium 4.6, Chloride 90 L, Carbon Dioxide 32 H, Anion Gap 11.6, BUN 9, Creatinine 0.40 L, Estimated Creat Clear 34, Estimated GFR 159, Est GFR ( Amer) 193, Glucose 135 H, Calcium 9.2, Magnesium 1.6 D, Total Bilirubin 0.7, AST 31, ALT 16, Alkaline Phosphatase 97, Total Protein 8.6 H, Albumin 4.4 D, Globulin 4.2 H, Albumin/Globulin Ratio 1.0 L, Lipase 39 08/08/24 19:00: Urine Color Yellow, Urine Appearance Clear, Urine pH 8.0, Ur Specific [place] 1.020, Urine Protein Negative, Urine Glucose (UA) Negative, Urine Ketones Trace, Urine Blood Negative, Urine Nitrate Negative, Urine Bilirubin Negative, Urine Urobilinogen 0.2, Ur Leukocyte Esterase Negative, Urine WBC Occasional, Ur Squamous Epith Cells Occasional, Amorphous Sediment 2+, Urine Bacteria 2+ I & O for Last 24 hours: Intake & Output 08/05/24 08/06/24 08/07/24 08/08/24 23:59 23:59 23:59 23:59 Weight 39.916 kg Constitutional Constitutional: no acute distress *Routine HEENT Exam Head: Present normocephalic Eye: Present EOMI and PERRL ENT: Present mucous membranes moist *Routine Neck Exam Neck: Present supple; Absent lymphadenopathy *Routine Respiratory Exam Respiratory: Present CTA bilaterally *Routine Cardiovascular Exam Cardiovascular: Present RRR *Routine Abdominal Exam Abdominal: Present soft and normoactive bowel sounds; Absent tenderness *Routine Rectal Exam Rectal:: deferred *Routine Genitalia Exam Genitalia:: deferred *Routine Extremities Exam Extremities: Absent cyanosis, clubbing or edema *Routine Skin Exam Skin: Present warm; Absent rash *Routine Neurological Exam Neurological: Present alert and oriented X3 Assessment and Plan *Assessment and plan (1) Lung cancer: Status: Acute Category: Medical Code(s): C34.90 - Malignant neoplasm of unspecified part of unspecified bronchus or lung (2) Nausea & vomiting: Status: Acute Category: Medical Code(s): R11.2 - Nausea with vomiting, unspecified (3) Migraine: Status: Acute Category: Medical Code(s): G43.909 - Migraine, unspecified, not intractable, without status migrainosus (4) CAD (coronary atherosclerotic disease): Status: Acute Qualifiers: Coronary Disease-Associated Artery/Lesion type: [place] artery [place] vs. transplanted heart: [place] heart Associated angina: without angina Qualified Code(s): I25.10 - Atherosclerotic heart disease of [place] coronary artery without angina pectoris Category: Medical Code(s): I25.10 - Atherosclerotic heart disease of [place] coronary artery without angina pectoris Plan Admitted for status migrainosus refractory to medical therapy in the emergency department. Will give IV Dilaudid and monitor. I suspect that her nausea is due to the severity of her headache, will reevaluate after her symptoms improved to see if further evaluation is necessary. Status migrainosus - IV Dilaudid - IV magnesium for -Corticosteroids given in the ER in addition to other medications -Imitrex avoided due to obstructive coronary artery disease Nausea vomiting severe - Zofran 4 mg every 4 as needed - Phenergan's - PPI -GI cocktail Heart failure reduced ejection fraction, compensated -Resume medical therapy Coronary artery disease -Resume medical therapy -Risk factor modification and secondary prevention of coronary artery disease Lung cancer -Tiffanie
[2024-08-08] MEDS: HYDROMORPHONE 2MG/ML SYRINGE 1 MG IV (22:08)
[2024-08-08] MEDS: MAGNESIUM SULFATE IN WATER 2 GM/50 ML PIGGYBACK IV (22:08)
--- NOTE | 2024-08-08 22:37 | PC.NURSE ---
Report called to Nohemi TERRAZAS for admission to room 208
[2024-08-09] VITALS: BP 148/82; PULSE 102; RESP 22; TEMP 36.8; O2SAT 99
[2024-08-09] MEDS: APIXABAN 5MG TABLET 5 MG PO ×3 (00:11→21:25)
[2024-08-09 04:00] VITALS: BP 156/82; PULSE 107; RESP 26; TEMP 36.7; O2SAT 99; BMI 17.2
--- NOTE | 2024-08-09 06:00 | PC.NURSE ---
Pt has rested well since admission. Pt is tolerating 3L well and has no complaints. Pt denies any symptoms of a migraine.
[2024-08-09 06:50] LABS: Basophils % 0.3 % (0.1-2.0); Hematocrit 40.3 % (37.0-47.0); Hemoglobin 13.2 g/dL (12.2-16.2); Immature Granulocytes # 0.11 10^3uL; Immature Granulocytes % 1.4 %; Lymphocytes # 0.4 K/mm3 (0.7-4.5); Mean Corpuscular HGB Conc 32.8 g/dL (31.8-35.4); Mean Corpuscular Hemoglobin 26.9 pg (27.0-31.2); Mean Corpuscular Volume 82.1 fl (81-99); Monocytes # 0.3 K/mm3 (0.1-1.0); Monocytes % 3.9 % (1.7-9.3); Neutrophils % 89.4 % (37.0-80.0); Nucleated Red Blood Cells # 0 10^3/uL; Nucleated Red Blood Cells % 0 %; Platelet Count 462 K/mm3 (142-424); Red Blood Count 4.91 M/mm3 (4.20-5.40); Red Cell Distribution Width 17.8 % (11.5-17.5); Red Cell Distribution Width-SD 53.1 fL; White Blood Count 7.9 K/mm3 (4.8-10.8)
[2024-08-09 06:57] LABS: MANUAL DIFFERENTIAL MANUAL DIFFERENTIAL (MANUAL DIFF)
[2024-08-09 07:07] LABS: Albumin Level 4.1 g/dl (3.5-5.0); Chloride 94 mmol/L (98-107); Potassium 4.3 mmoL/L (3.5-5.1); Sodium 129 mmol/L (136-145)
[2024-08-09 07:09] LABS: Blood Urea Nitrogen 14 mg/dl (7-17)
[2024-08-09 07:10] LABS: Alanine Aminotransferase 17 U/L (12-78); Albumin/Globulin Ratio 1.1 (1.1-1.8); Alkaline Phosphatase 102 U/L (38-126); Anion Gap 8.3 mEq/L (5-15); Aspartate Amino Transferase 34 U/L (14-36); Bilirubin,Total 0.3 mg/dl (0.2-1.3); Calcium 9.1 mg/dl (8.4-10.2); Carbon Dioxide 31 mmol/L (22.0-30.0); Cholesterol 249 mg/dl (140-200); Creatinine Clearance Estimated 34 mL/min (50-200); Estimated Glomerular Filt Rate 123 ml/min (>60); GFR (African American) 149 ML/MIN (>60); Globulin 3.8 g/dL (1.3-3.2); Glucose 147 mg/dl (74-100); Phosphorous 4.1 mg/dl (2.5-4.5); Total Protein,Serum 7.9 g/dl (6.3-8.2); Triglycerides 103 mg/dl (30-150); VLDL Cholesterol 21 mg/dL (0-40)
[2024-08-09 07:11] LABS: Chol/HDL Ratio 5.4 (1-3.5); HDL Cholesterol 46 mg/dl (40-60)
[2024-08-09 07:21] LABS: Direct LDL Cholesterol 150.88 mg/dL (100-129)
[2024-08-09 08:00] VITALS: BP 166/85; PULSE 113; RESP 19; TEMP 36.9; O2SAT 100
[2024-08-09 08:10] LABS: Lymphocytes % 7 % (10-50); Monocytes % 4 % (2-9); Neutrophils % 89 % (42-76); RBC Morphology Normal; Total Cells Counted 100
[2024-08-09 08:13] LABS: Platelet Estimate Slight Increase
[2024-08-09] MEDS: UBROGEPANT 50MG TABLET 100 MG PO (11:23)
--- NOTE | 2024-08-09 11:53 | DIET.NUTRFU ---
based on chart review, hx of CA with current chemo tx, low BMI with PMH of Cachexia, patient will trigger for severe protein calorie malnutrition- provider has been notified. Will continue to monitor po intake for supplement need. She is on megace at home and she has recently gained wt. She does plan on discharging today
[2024-08-09] MEDS: SENNOSIDES 8.6MG/DOCUSATE 50MG TABLET 1 TAB PO (13:33)
[2024-08-09] MEDS: POLYETHYLENE GLYCOL 3350 17 GM PACKET PO (13:33)
[2024-08-09] MEDS: ONDANSETRON 4MG/2ML VIAL 4 MG IV (14:15)
[2024-08-09] MEDS: HYDROMORPHONE 2MG/ML SYRINGE 1 MG IV (14:20)
[2024-08-09 16:00] VITALS: BP 148/78; PULSE 104; O2SAT 98
--- NOTE | 2024-08-09 17:00 | P.PN_ITS ---
Subjective *Date: 08/09/24 *Time: 17:17 Interval history: Continues to have headache. Still with some light sensitivity and upset stomach. Responds well to pain medication. Afebrile. No concern for infection. White count normal. Stable on baseline oxygen at 3 L. Nausea but no juan emesis Medical Exam Vital signs and Labs for Last 24 Hours: Vital Signs Temp Pulse Pulse Resp BP BP Pulse Ox 08/09/24 15:00 08/09/24 12:54 08/09/24 11:00 08/09/24 08:52 08/09/24 08:00 08/09/24 08:00 98.4 F 113 H 19 166/85 H 100 08/09/24 06:38 08/09/24 05:00 08/09/24 04:00 98.0 F 107 H 26 H 156/82 H 99 08/09/24 02:49 08/09/24 00:58 08/09/24 00:00 98.2 F 102 H 22 148/82 H 99 08/08/24 23:02 98.1 F 118 H 22 177/101 H 08/08/24 23:00 08/08/24 22:31 94 H 20 95/54 L 98 08/08/24 22:27 114 H 08/08/24 22:00 115 H 37 H 177/101 H 89 L 08/08/24 21:30 116 H 39 H 166/93 H 90 L 08/08/24 21:00 115 H 39 H 172/92 H 97 08/08/24 20:30 117 H 38 H 173/96 H 99 08/08/24 20:20 118 H 17 176/94 H 99 08/08/24 20:00 117 H 42 H 180/98 H 98 08/08/24 19:30 110 H 35 H 171/95 H 99 08/08/24 18:31 109 H 31 H 178/96 H 99 08/08/24 18:00 105 H 186/98 H 99 08/08/24 17:30 105 H 195/99 H 99 O2 Del Method O2 Flow Rate 08/09/24 15:00 Nasal Cannula 3 08/09/24 12:54 Nasal Cannula 3 08/09/24 11:00 Nasal Cannula 08/09/24 08:52 Nasal Cannula 3 08/09/24 08:00 Nasal Cannula 08/09/24 08:00 Nasal Cannula 3 08/09/24 06:38 Nasal Cannula 3 08/09/24 05:00 Nasal Cannula 3 08/09/24 04:00 08/09/24 02:49 Nasal Cannula 3 08/09/24 00:58 Nasal Cannula 3 08/09/24 00:00 08/08/24 23:02 Nasal Cannula 2 08/08/24 23:00 Nasal Cannula 3 08/08/24 22:31 08/08/24 22:27 Nasal Cannula 3 08/08/24 22:00 08/08/24 21:30 08/08/24 21:00 08/08/24 20:30 08/08/24 20:20 08/08/24 20:00 08/08/24 19:30 08/08/24 18:31 Room Air 08/08/24 18:00 08/08/24 17:30 Intake and Output 08/09/24 08/09/24 08/09/24 07:59 15:59 23:59 Intake Total 120 / 390 270 / 390 Balance 120 / 390 270 / 390 Intake: Intake, Oral Amount 120 / 390 270 / 390 Other: Weight 39.916 kg Patient Weight 08/09/24 23:59 Weight 39.916 kg Laboratory Results - last 24 hr 08/08/24 17:15: WBC 13.0 H, RBC 4.70, Hgb 12.6, Hct 38.9, MCV 82.8, MCH 26.8 L, MCHC 32.4, RDW 18.1 H, Plt Count 403, MPV 9.7, Neut % (Auto) 88.3 H, Lymph % (Auto) 4.3 L, [place] % (Auto) 6.4, Eos % (Auto) 0.2, Baso % (Auto) 0.3, Neut # (Auto) 11.5 H, Lymph # (Auto) 0.6 L, [place] # (Auto) 0.8, Eos # (Auto) 0.0, Baso # (Auto) 0.0, PT 10.5, INR 0.94, D-Dimer 0.80 H, Sodium 129 L, Potassium 4.6, Chloride 90 L, Carbon Dioxide 32 H, Anion Gap 11.6, BUN 9, Creatinine 0.40 L, Estimated Creat Clear 34, Estimated GFR 159, Est GFR ( Amer) 193, Glucose 135 H, Calcium 9.2, Magnesium 1.6 D, Total Bilirubin 0.7, AST 31, ALT 16, Alkaline Phosphatase 97, Total Protein 8.6 H, Albumin 4.4 D, Globulin 4.2 H, Albumin/Globulin Ratio 1.0 L, Lipase 39 08/08/24 19:00: Urine Color Yellow, Urine Appearance Clear, Urine pH 8.0, Ur Specific [place] 1.020, Urine Protein Negative, Urine Glucose (UA) Negative, Urine Ketones Trace, Urine Blood Negative, Urine Nitrate Negative, Urine Buddy irubin Negative, Urine Urobilinogen 0.2, Ur Leukocyte Esterase Negative, Urine WBC Occasional, Ur Squamous Epith Cells Occasional, Amorphous Sediment 2+, Urine Bacteria 2+ 08/09/24 06:20: WBC 7.9 D, RBC 4.91, Hgb 13.2, Hct 40.3, MCV 82.1, MCH 26.9 L, MCHC 32.8, RDW 17.8 H, Plt Count 462 H, MPV 10.0, Neut % (Auto) 89.4 H, Lymph % (Auto) 5.0 L, [place] % (Auto) 3.9, Eos % (Auto) 0.0 L, Baso % (Auto) 0.3, Neut # (Auto) 7.0, Lymph # (Auto) 0.4 L, [place] # (Auto) 0.3, Eos # (Auto) 0.0, Baso # (Auto) 0.0, Total Counted 100, Neutrophils % (Manual) 89 H, Lymphocytes % (Manual) 7 L, Monocytes % (Manual) 4, Platelet Estimate Slight increase, RBC Morphology Normal, Sodium 129 L, Potassium 4.3, Chloride 94 L, Carbon Dioxide 31 H, Anion Gap 8.3, BUN 14 D, Creatinine 0.50 L D, Estimated Creat Clear 34, Estimated GFR 123, Est GFR ( Amer) 149 D, Glucose 147 H, Calcium 9.1, Phosphorus 4.1, Magnesium 2.0 D, Total Bilirubin 0.3, AST 34, ALT 17, Alkaline Phosphatase 102, Total Protein 7.9, Albumin 4.1, Globulin 3.8 H, Albumin/Globulin Ratio 1.1, Triglycerides 103, Cholesterol 249 H, LDL Cholesterol Direct 150.88 H, VLDL Cholesterol 21, HDL Cholesterol 46, Cholesterol/HDL Ratio 5.4 H I & O for Labs for Last 24 Hours: Intake & Output 08/06/24 08/07/24 08/08/24 08/09/24 23:59 23:59 23:59 23:59 Intake Total 390 / 390 Balance 390 / 390 Weight 39.916 kg 39.916 kg Constitutional: Present no acute distress, cachectic and chronically ill appearing Head: Present atraumatic and normocephalic ENT: Present normal exam Respiratory: Absent rhonchi, wheezes or crackles Cardiac: Present Reg Rate and Rhythm GI: Present soft and normal bowel sounds; Absent distention or tenderness Extremities: Present normal inspection and full ROM Skin: Present intact; Absent erythema Neuro: Present Grossly Intact, alert, awake, oriented x 3 and moves all extremities Assessment and Plan *Assessment and plan (1) Migraine: Status: Acute Qualifiers: Intractability: intractable Migraine type: unspecified Status migrainosus presence: with status migrainosus Qualified Code(s): G43.911 - Migraine, unspecified, intractable, with status migrainosus Category: Medical Code(s): G43.909 - Migraine, unspecified, not intractable, without status migrainosus (2) Lung cancer: Status: Acute Category: Medical Code(s): C34.90 - Malignant neoplasm of unspecified part of unspecified bronchus or lung (3) Nausea & vomiting: Status: Acute Category: Medical Code(s): R11.2 - Nausea with vomiting, unspecified (4) CAD (coronary atherosclerotic disease): Status: Acute Qualifiers: Associated angina: without angina Coronary Disease-Associated [place]/Lesion type: [place] artery [place] vs. transplanted heart: [place] heart Qualified Code(s): I25.10 - Atherosclerotic heart disease of [place] coronary artery without angina pectoris Category: Medical Code(s): I25.10 - Atherosclerotic heart disease of [place] coronary artery without angina pectoris Plan Admitted for status migrainosus refractory to medical therapy in the emergency department. Responded to Dilaudid last night. Headache recurrent today. Trying other modalities. Continues to require inpatient management. Anticipate discharge tomorrow. Problems addressed as follows: Status migrainosus - Responded to IV Dilaudid. Continues to have nausea related to headache pain. Will trial Ubrelvy 100 mg once today - Initiate Fioricet 1 tab every 6 hours as needed for migraine - Received IV magnesium, corticosteroids in the ER with no significant improvement. -Imitrex avoided due to obstructive coronary artery disease - Reviewed CT obtained from previous visit to the ER, no mass effect or concern for metastatic disease from her lung cancer at this time. Nausea vomiting severe - Zofran 4 mg every 6 hours as needed - Phenergan's - PPI -GI cocktail Heart failure reduced ejection fraction, compensated CAD -Continue home amiodarone 20 mg daily, apixaban 5 mg twice daily Continue Anoro daily for COPD Continue trazodone 25 mg nightly as needed for sleep Full code Regular diet
--- NOTE | 2024-08-09 18:19 | PC.NURSE ---
PT IS RESTING IN BED. ALERT AND ORIENTED X4. APPETITE HAS BEEN POOR. MEDICATED PER MAR FOR HEADACHE AND NAUSEA. LUNG SOUNDS DIMINISHED WITH SCATTERED WHEEZES. ABDOMEN SOFT/NON TENDER WITH HYPOACTIVE BOWEL SOUNDS. AMBULATES TO THE BATHROOM STAND BY ASSIST. WILL CONTINUE TO MONITOR.
[2024-08-09 19:53] VITALS: BP 110/62; PULSE 91; RESP 16; TEMP 36.8; O2SAT 99
[2024-08-09] MEDS: TRAZODONE 50MG TABLET 25 MG PO (21:25)
[2024-08-10] VITALS (8 sets, daily range): BP systolic 61–187; BP diastolic 40–97; PULSE 82–116; RESP 16–20; TEMP 36.1–36.8; O2SAT 95–99; BMI 16.2
[2024-08-10] MEDS: ONDANSETRON 4MG/2ML VIAL 4 MG IV ×2 (04:59→13:04)
[2024-08-10] MEDS: BUTALB/ACETAMINOPHEN/CAFFEINE 50MG/325MG/40MG TAB 1 EACH PO (05:00)
[2024-08-10 06:54] LABS: Basophils % 0.2 % (0.1-2.0); Eosinophils # 0.1 Kmm3 (0.0-0.4); Eosinophils % 0.3 % (0.1-12.0); Hematocrit 39.9 % (37.0-47.0); Hemoglobin 12.7 g/dL (12.2-16.2); Immature Granulocytes # 0.14 10^3uL; Immature Granulocytes % 0.9 %; Lymphocytes # 0.7 K/mm3 (0.7-4.5); Lymphocytes % 4.1 % (10-50); Mean Corpuscular HGB Conc 31.8 g/dL (31.8-35.4); Mean Corpuscular Hemoglobin 26.6 pg (27.0-31.2); Mean Corpuscular Volume 83.5 fl (81-99); Mean Platelet Volume 10.4 fl (7.4-10.4); Monocytes # 1.4 K/mm3 (0.1-1.0); Monocytes % 8.8 % (1.7-9.3); Neutrophils # 13.8 K/mm3 (1.8-7.8); Neutrophils % 85.7 % (37.0-80.0); Nucleated Red Blood Cells # 0 10^3/uL; Nucleated Red Blood Cells % 0 %; Platelet Count 431 K/mm3 (142-424); Red Blood Count 4.78 M/mm3 (4.20-5.40); Red Cell Distribution Width 17.9 % (11.5-17.5); Red Cell Distribution Width-SD 54.8 fL; White Blood Count 16.1 K/mm3 (4.8-10.8)
[2024-08-10 07:01] LABS: Albumin Level 4.1 g/dl (3.5-5.0); Chloride 94 mmol/L (98-107); Potassium 4.3 mmoL/L (3.5-5.1); Sodium 129 mmol/L (136-145)
[2024-08-10 07:04] LABS: Alanine Aminotransferase 13 U/L (12-78); Albumin/Globulin Ratio 1.2 (1.1-1.8); Alkaline Phosphatase 113 U/L (38-126); Anion Gap 7.3 mEq/L (5-15); Aspartate Amino Transferase 27 U/L (14-36); Bilirubin,Total 0.2 mg/dl (0.2-1.3); Blood Urea Nitrogen 20 mg/dl (7-17); Carbon Dioxide 32 mmol/L (22.0-30.0); Creatinine Clearance Estimated 32 mL/min (50-200); Estimated Glomerular Filt Rate 159 ml/min (>60); GFR (African American) 193 ML/MIN (>60); Globulin 3.5 g/dL (1.3-3.2); Total Protein,Serum 7.6 g/dl (6.3-8.2)
[2024-08-10 07:05] LABS: Calcium 8.6 mg/dl (8.4-10.2); Glucose 160 mg/dl (74-100); Magnesium 1.6 mg/dl (1.6-2.3)
[2024-08-10] MEDS: HYDROMORPHONE 2MG/ML SYRINGE 0.5 MG IV (09:21)
[2024-08-10] MEDS: AMIODARONE 200MG TABLET 200 MG PO (10:46)
[2024-08-10] MEDS: APIXABAN 5MG TABLET 5 MG PO ×2 (10:47→20:52)
[2024-08-10] MEDS: POLYETHYLENE GLYCOL 3350 17 GM PACKET PO (12:26)
[2024-08-10] MEDS: SENNOSIDES 8.6MG/DOCUSATE 50MG TABLET 2 TAB PO ×2 (12:27→20:52)
[2024-08-10] MEDS: CARVEDILOL 6.25MG TABLET 6.25 MG PO (12:27)
[2024-08-10] MEDS: OXYCODONE 5MG W/APAP 325MG TABLET 1 EACH PO (13:05)
--- NOTE | 2024-08-10 15:37 | PC.NURSE ---
patient is a/o x4 remains on her baseline 3 LNC. patient has c/o a migraine and nausea throughout the entire shift. patient stated that dilaudid was the only medication that really helped her migraine and nausea. administered zofran and percocet per MAR, patient stated it only helped a little offered patient phenergan and patient refused. MD notified of continuing pain and nausea. MD started patient on bowel regimen, patient has yet to have a BM and is not passing flatus. patient stated she is burping. patient is ambulating to the bathroom to void. notified MD of patients HTN and HR. new orders received earlier in shift. patient is currently resting with the lights off. RR even and unlabored. call light within reach.
--- NOTE | 2024-08-10 15:41 | XR_ITS ---
FINAL REPORT CLINICAL HISTORY: abdominal pain COMPARISON: None FINDINGS: SINGLE VIEW ABDOMEN A single view of the abdomen was obtained. There is a moderate amount of stool throughout the colon. There are no abnormally dilated loops of small bowel. No abnormal calcifications are identified. IMPRESSION: Moderate stool burden. Reviewed, Interpreted and Dictated by Praneeth Bernal MD Transcribed by Maribell Xiao Authenticated and . [facility]
--- OUTSIDE RECORDS SUMMARY | 2024-08-10 16:00 | XMS_ITS | Clinical Summary ---
Author Organization [facility] Address [address] [place] [address] Care Team Providers Care As[employer]er [employer] Name Role Phone Mk Reagan MD Primary Care Provider [phone] Hossein Greer MD Unavailable [phone] Allergies Active Allergy Reactions Criticality Noted Date [...] and Family Not on file 01/15/2024 Attends [employer] Not on file 01/14 Active Member [...] any time in the past 12 m [facility], were you homeless or living in a [facility] (including now)? No 01/15/2024 Utilities Answer Date [...] [facility]-Depression Screening 1956 [facility]-Hepatitis C Screening 1955 [facility]-Infant/Child/Adol SDOH Screenings 1955 [id number] Vaccine (#1) 1961 [facility]-DTaP,Tdap,and Td Vaccine s [...] this topic Medical Devices Implanted Type Area Accounts Payables Clerk Device Identifier Shelf Expiration Date Model / Serial / Lot Stent Stent Heart Description:Two heart stents in right side Stent Stent Neck Stent Bonastent Tracheal/Bronch ial [id number] - [id number] Implanted:Qty: 1 on 01/21/2024 by Cesar Irving MD at [facility] [id number] 09/09/2026 [id number] / / [id number] Procedures Procedure Name Priority Date/Time Associated Diagnosis Comments HEMOGLOBIN A1C Routine 01/15/2024 1:06 AM EST from Last 3 Months or Most Recently Relevant to Health Maintenance Results * (ABNORMAL) Hemoglobin A1c (01/15/2024 1:06 AM EST) Hemoglobin A1c 5.9(H) <5.7 % 01/15/2024 2:[address] [facility] Blood Arterial blood specimen / Unknown Venipuncture / Unknown 01/15/2024 1:06 AM EST 01/15/2024 1:[address] [facility] - 01/15/2024 2:59 AM EST HA1C Interpretive Data: Diagnosis of Diabetes: Diabetic > or = 6.5% Pre-diabetic 5.7 to 6.4% Non-diabetic < or = 5.6% Glycemic Targets for Type I and Type II Diabetics: Non- Adults <7.0% Adults <6.0% Children and Adolescents <7.5% Source: [place] [employer]. Standards of medical care in diabetes,2017. Diabetes Care.2017:40 (suppl 1):S1-S135. HbA1c assay performed by an ion-exchange chromatography method that is certified traceable to the DCCT. Orlando Oseguera DO LAB BLOOD ORDERABLES Final Result Performing Organization Address City/State/[facility] de Phone Number [facility] [address] [place] [address] from Last 3 Months or Most Recently Relevant to Health Maintenance Insurance HOA Advance Directives * Full Code (Latest Code Status on File) Date Activated Date Inactivated Comments 01/18/2024 5:01 PM 01/26/2024 8:47 PM Question Answer Comments Patient has decision-making capacity? No Healthcare Surrogate: Adult child of the patient Care Teams As[employer]er [employer] Relationship Specialty Start Date End Date Mk Reagan MD [address] [facility] [address] [address] [place] [id number] PCP - General Internal Medicine 01/15/24 Hossein Greer MD [address] [facility] [address] [place] [id number] Consulting Physician Radiation Oncology 02/01/24
--- OUTSIDE RECORDS SUMMARY | 2024-08-10 16:00 | XMS_ITS | Data Portability ---
Author Organization [facility] & [facility] ADMIN Address [address] [place] [id number] Assessment No assessment recorded. Plan of Treatment Reminders Order Date Submit Date Provider Last Modified By Organization Details Last Modified Time Details Appointments None record ed. Lab None record ed. Referral None record ed. Procedures None record ed. Surgeries None record ed. Imaging XR, chest, 2 view 024 07/01/19 24 [facility] (Centralized Scheduling), [address] [facility], [place], [address], 11:36:40 Medication Orders None record ed. Patient TargetsNo targets recorded. Patient InstructionsNo instructions recorded. Reason for Referral None Reported. Results Created Date Observation Date Name Description Value Unit Range Abnormal Flag Note LastModifiedBy Organization Detail LastModifiedTime 10/28/19 24 10/27/2023 CT, chest , w/o contr ast No observ ation record ed. [facility] (Med Record) [address], [place], [address], 11/06/2023 11:48:34 10/29/19 24 08/27/2023 CT, chest , w/ contr ast No observ ation record ed. [facility] [address], [place], [address], 11/11/2023 16:06:08 02/10/[address], chest , w/o contr ast No observ ation record ed. [email or web address] Not Available 2023 08:43:28 Result Notes None recorded. Medical Equipment None Reported. Allergies Allergen ID Allergen Name Allergen Category Reaction Reaction Severity Criticality Documentation Date Start Date Code Code System Note Provider Name and Address Organization Details Recorded Time [id number] diazepam medicatio n Not available Not available Not available 07/01/2023 3322 RxNorm [place]AL[place] Rojas [facility] & [place] 4 11:13:48 758247 aspirin medicatio n Not available Not available Not available 07/01/2023 1191 RxNorm [place] Rojas [facility] & [place] 4 11:13:58 Medications Name Sig Start Date [...] % 128 /min 97 [degF] 18.1 kg/m2 49552.8 7 g 124 mm[Hg] 59 mm[Hg] Ирина ACUNA - [facility] - [place] & [place] 4 11:13:15 Date Recorded Body height Body temperature Body mass index (BMI) Body weight Heart rate Oxygen saturation Oxygen saturation in Arterial blood by Pulse oximetry Systolic blood pressure Diastolic blood pressure Provider Name and Address Organization Details Last Updated DateTime 4 154.94 cm 98.6 [degF] 18.6 kg/m2 27834.2 1 g 92 /min 100 % 100 % 100 mm[Hg] 62 mm[Hg] Ofelia Tillman [place] - [facility] - [place] & [place] 4 13:13:10 Social History None recorded. Functional Status None recorded. Mental Status None recorded. Family History Nothing Reported. Medical History No medical history recorded. Gynecological HistoryNo gynecological history recorded. Obstetrics History GPAL:G 0 P 0 0 0 0 Past Encounters Encounter ID Performer Location Encounter Start Date Encounter Closed Date Diagnosis/Indication Diagnosis SNOMED-CT Code Diagnosis ICD10 Code Diagnosis Note [id number] [facility] [address] [place] [address] 07/01/2023 10:59:47 07/01/2023 11:35:02 Community acquired pneumonia [id number] J18.9 Exam is unremarkab le. Patient is on 2L NC all the time at home. Will send for follow up chest xray. Will see patient back in 2 weeks to evaluate condition. Fall W19.XXXA Patient fell in our parking lot. She is on blood thinners. She has a bruise/hem atoma on the right episcopal. She also has an abrasion on the right arm. Incident report filed. Management notified. ER notified. Patient sent to [facility] ER to be evaluated. She has a family member to drive her. She is stable upon discharge. [id number] [facility] [address] [place] [address] 07/09/2023 13:01:53 07/09/2023 15:49:49 Community acquired pneumonia [id number] J18.9 Patient remains on 1.5-2L NC. Patient [...] ID Guarantor Name 09/03/2023 1 [employer] [id number] Kehinde Jensen [id number] [address] 09/30/2023 1 [employer] [id number] Al[place] Melo [id number] 02/07/2024 1 [place] [id number] Kehinde Jensen [id number] Notes Date Note Type [...] resulting in a hematoma on the right episcopal. She is on blood thinners. She also reports an abrasion and pain to the right arm. She is stable in clinic currently. She is requesting to be evaluated by our medical team. She denies any loss of consciousness. Denies any headache. Denies any change in vision or hearing. Mora Poole APRN [id number] , [place], [address], [facility] 07/01/2023 11:57:02 07/09/2023 text/html patient is a 67 year old white female presenting to clinic for hospital follow up for pneumonia. Patient states she continues to feel better. Her SOB improves but she remains on 1.5L NC. She denies any fevers. Denies any sputum production. Denies any chest pain. Mora Poole APRN [id number] , [place], [address], [facility] - NT [facility] & [place] 07/09/2023 15:14:21 OBGyn Episode No OBEpisode recorded.
--- OUTSIDE RECORDS SUMMARY | 2024-08-10 16:00 | XMS_ITS ---
Author Organization [facility] Address [address] [place] [address] Care Team Providers Care Carver And Checkerer Specials Name Role Phone Mk Reagan MD Primary Care Provider [phone] Kehinde Greer MD Unavailable [phone] Active Problems Problem Noted Date Diagnosed Date [...]
--- OUTSIDE RECORDS SUMMARY | 2024-08-10 16:00 | XMS_ITS | Encounter Summary ---
Author Organization Healthcare Address [address] [place] [address] Care Team Providers Care Photograph Tinter Name Role Phone Mk Reagan MD Primary Care Provider [phone] Kehinde Greer MD Unavailable [phone] Encounter Details Date Type Department Care Team (Late st Contact Info) Description 01/19/2024 Lab Requisition [facility] [address] [place] [address] Mu Carrillo MD [address] [facility] [address] [place] [address] Encounter for general adult medical [...] and Family Not on file 01/15/2024 Attends [facility] Not on file 01/14 Active Member [...] any time in the past 12 m [facility], were you homeless or living in a retirement (including now)? No 01/15/2024 Utilities Answer Date [...] at day 1 01/20/2024 4:06 AM EST [facility] Swab (Nares and Tiffany Rectal) 01/19/2024 6:00 AM EST 01/19/2024 7:21 AM EST us Mu Carrillo MD LAB MICROBIOLOGY - GEN ERAL ORDERABLES Final Result [facility] [address] [place] [address] documented in this encounter Visit Diagnoses Diagnosis Encounter for general adult medical examination without abnormal findings documented in this encounter Additional Health Concerns Assessment Noted Time A Body Mass Index follow-up plan has been documented for the patient 01/26/2024 5:13 PM EST documented as of this encounter Care Teams Photograph Tinter Relationship Specialty Start Date End Date Mk Reagan MD [address] [place] [address] PCP - General Internal Medicine 01/15/24 Kehinde Greer MD [address] [facility] [address] [place] [address] Consulting Physician Radiation Oncology 02/01/24 documented as of this encounter
--- OUTSIDE RECORDS SUMMARY | 2024-08-10 16:00 | XMS_ITS | Encounter Summary ---
Author Organization Healthcare Address [address] [place] [address] Care Team Providers Care Nut Threader Name Role Phone Mk Reagan MD Primary Care Provider [phone] Kehinde Greer MD Unavailable [phone] Encounter Details Date Type Department Care Team (Late st Contact Info) Description 01/18/2024 Lab Requisition [facility] [address] [place] [address] Mu Carrillo MD [address] [facility] [address] [place] [address] Encounter for general adult medical [...] and Family Not on file 01/15/2024 Attends [employer] [facility] Not on file 01/14 Active Member [...] any time in the past 12 m [facility], were you homeless or living in a fci (including now)? No 01/15/2024 Utilities Answer Date [...] at day 1 01/19/2024 8:51 AM EST [facility] Swab (Nares and Tiffany Rectal) 01/18/2024 8:00 AM EST 01/18/2024 11:29 AM EST us Mu Carrillo MD LAB MICROBIOLOGY - GEN ERAL ORDERABLES Final Result [facility] [address] [place] [address] documented in this encounter Visit Diagnoses Diagnosis Encounter for general adult medical examination without abnormal findings documented in this encounter Additional Health Concerns Assessment Noted Time A Body Mass Index follow-up plan has been documented for the patient 01/26/2024 5:13 PM EST documented as of this encounter Care Teams Nut Threader Relationship Specialty Start Date End Date Mk Reagan MD [address] [place] [address] PCP - General Internal Medicine 01/15/24 Kehinde Greer MD [address] [facility] [address] [place] [address] Consulting Physician Radiation Oncology 02/01/24 documented as of this encounter
[2024-08-10] MEDS: HYDROMORPHONE 2MG/ML SYRINGE 1 MG IV (17:23)
[2024-08-10] MEDS: SODIUM PHOS/BIPHOSPHATE FLEET 133ML ENEMA 133 ML RC (17:24)
--- NOTE | 2024-08-10 19:19 | EXP.ACUTE.PN ---
Subjective *Date: 08/10/24 *Time: 19:25 Interval history: Continues to complain of headache and abdominal pain. Has not had a bowel Oles 4 days. Still having some nausea when she eats. Not wanting to eat much. Stable on 3 L which is her baseline. Afebrile Medical Exam Vital signs and Labs for Last 24 Hours: Vital Signs Temp Pulse Resp BP Pulse Ox O2 Del Method O2 Flow Rate 08/10/24 18:54 Nasal Cannula 08/10/24 17:00 Nasal Cannula 08/10/24 16:00 97.8 F 95 H 18 148/82 H 99 Nasal Cannula 3 08/10/24 15:00 Room Air 08/10/24 13:00 Nasal Cannula 08/10/24 12:30 109 H 20 182/97 H 99 Room Air 08/10/24 11:00 Nasal Cannula 08/10/24 09:00 Nasal Cannula 08/10/24 08:00 Nasal Cannula 08/10/24 08:00 97.9 F 109 H 20 187/92 H 98 Nasal Cannula 3 08/10/24 05:00 Nasal Cannula 3 08/10/24 04:00 98.1 F 116 H 16 159/91 H 95 Room Air 08/10/24 03:00 Nasal Cannula 3 08/10/24 01:00 Nasal Cannula 3 08/10/24 00:00 98.2 F 95 H 16 132/69 99 Nasal Cannula 3 08/09/24 23:00 Nasal Cannula 3 08/09/24 21:00 Nasal Cannula 3 08/09/24 20:00 Nasal Cannula 3 08/09/24 19:53 98.3 F 91 H 16 110/62 99 Nasal Cannula 3 Intake and Output 08/10/24 08/10/24 08/10/24 07:59 15:59 23:59 Intake Total 240 / 240 Output Total 500 / 1000 500 / 1000 Balance -500 / -760 -260 / -760 Intake: Intake, Oral Amount 240 / 240 Output: Output, Urine Amount 500 / 1000 500 / 1000 Other: Number of Unmeasured Voids 0 0 Weight 37.648 kg 37.6 kg Patient Weight 08/10/24 23:59 Weight 37.6 kg Laboratory Results - last 24 hr 08/10/24 05:58: WBC 16.1 H D, RBC 4.78, Hgb 12.7, Hct 39.9, MCV 83.5, MCH 26.6 L, MCHC 31.8, RDW 17.9 H, Plt Count 431 H, MPV 10.4, Neut % (Auto) 85.7 H, Lymph % (Auto) 4.1 L, [place] % (Auto) 8.8, Eos % (Auto) 0.3, Baso % (Auto) 0.2, Neut # (Auto) 13.8 H, Lymph # (Auto) 0.7, [place] # (Auto) 1.4 H, Eos # (Auto) 0.1, Baso # (Auto) 0.0, Sodium 129 L, Potassium 4.3, Chloride 94 L, Carbon Dioxide 32 H, Anion Gap 7.3, BUN 20 H D, Creatinine 0.40 L, Estimated Creat Clear 32, Estimated GFR 159, Est GFR ( Amer) 193 D, Glucose 160 H, Calcium 8.6, Magnesium 1.6 D, Total Bilirubin 0.2, AST 27, ALT 13, Alkaline Phosphatase 113, Total Protein 7.6, Albumin 4.1, Globulin 3.5 H, Albumin/Globulin Ratio 1.2 I & O for Labs for Last 24 Hours: Intake & Output 08/07/24 08/08/24 08/09/24 08/10/24 23:59 23:59 23:59 23:59 Intake Total 780 / 780 240 / 240 Output Total 1000 / 1000 Balance 780 / 780 -760 / -760 Weight 39.916 kg 39.916 kg 37.6 kg Microbiology Reports for the Last 24 Hours: Microbiology 08/08/24 19:00 Urine,Clean Catch Urine Culture - Final Multiple organisms, suggests contamination. Constitutional: Present mild distress, cachectic and chronically ill appearing Head: Present atraumatic and normocephalic ENT: Present normal exam Comment:: Head nontender Respiratory: Absent rhonchi, wheezes or crackles Cardiac: Present Reg Rate and Rhythm GI: Present soft, tenderness (Diffuse, nonfocal) and normal bowel sounds; Absent distention Extremities: Present normal inspection and full ROM Skin: Present intact; Absent erythema Neuro: Present Grossly Intact, alert, awake, oriented x 3 and moves all extremities Assessment and Plan *Assessment and plan (1) Migraine: Status: Acute Qualifiers: Intractability: intractable Migraine type: unspecified Status migrainosus presence: with status migrainosus Qualified Code(s): G43.911 - Migraine, unspecified, intractable, with status migrainosus Category: Medical Code(s): G43.909 - Migraine, unspecified, not intractable, without status migrainosus (2) Lung cancer: Status: Acute Category: Medical Code(s): C34.90 - Malignant neoplasm of unspecified part of unspecified bronchus or lung (3) Nausea & vomiting: Status: Acute Category: Medical Code(s): R11.2 - Nausea with vomiting, unspecified (4) CAD (coronary atherosclerotic disease): Status: Acute Qualifiers: Associated angina: without angina Coronary Disease-Associated Artery/Lesion type: [place] artery [place] vs. transplanted heart: [place] heart Qualified Code(s): I25.10 - Atherosclerotic heart disease of [place] coronary artery without angina pectoris Category: Medical Code(s): I25.10 - Atherosclerotic heart disease of [place] coronary artery without angina pectoris (5) Constipation due to opioid therapy: Status: Acute Category: Medical Code(s): K59.03 - Drug induced constipation; T40.2X5A - Adverse effect of other opioids, initial encounter Plan Admitted for status migrainosus refractory to medical therapy in the emergency department. Responded to Dilaudid last night. Headache recurrent today. Concern for abdominal pain. KUB shows significant constipation. Continues to require inpatient management. Anticipate discharge in the next day or 2. Problems addressed as follows: Status migrainosus - Responded to IV Dilaudid. Continues to have nausea related to headache pain - Trialed Ubrelvy with no benefit. Fioricet had no benefit. - Will trial 500 cc bolus of LR. Resume home oxycodone. - Received IV magnesium, corticosteroids in the ER with no significant improvement. -Imitrex avoided due to obstructive coronary artery disease - Reviewed CT obtained from previous visit to the ER, no mass effect or concern for metastatic disease from her lung cancer at this time. - BUN 20, creatinine 0.4. Sodium mildly low at 129. White count bumped to 16 but no clear source of infection on imaging - Will administer single dose 750 mg Levaquin IV once. Urinalysis had multiple organisms, not consistent with UTI. - Repeat CBC, CMP, magnesium ordered for the Nausea vomiting severe - Zofran 4 mg every 6 hours as needed - Pantoprazole 40 mg IV nightly. GI cocktail once. - Concern for constipation component. Administering MiraLAX daily, docusate senna twice daily. Will administer single enema and monitor for improvement -KUB obtained, per my review has large stool burden especially in the ascending and transverse colon Heart failure reduced ejection fraction, compensated CAD -Continue home amiodarone 20 mg daily, apixaban 5 mg twice daily Continue Anoro daily for COPD Continue trazodone 25 mg nightly as needed for sleep Full code Regular diet
[2024-08-10] MEDS: LACTATED RINGERS 1000ML 500 ML 250 ML IV (20:41)
[2024-08-10] MEDS: LEVOFLOXACIN/D5W 750 MG/150 ML 750 MG/150 ML PIGGYBACK 100 MG IV (20:44)
[2024-08-10] MEDS: BELLADONNA ALKALOIDS 60 ML ML PO (20:45)
[2024-08-10] MEDS: PANTOPRAZOLE 40MG TABLET 40 MG PO (20:52)
[2024-08-10] MEDS: 0.9 % SODIUM CHLORIDE 1000ML 500 ML IV (23:38)
[2024-08-11 00:30] VITALS: BP 84/45; PULSE 82; RESP 16; O2SAT 98
[2024-08-11] MEDS: 0.9 % SODIUM CHLORIDE 1000ML 500 ML 999 ML IV (00:45)
[2024-08-11 02:00] VITALS: BP 108/55; PULSE 80; RESP 16; TEMP 36.7
--- NOTE | 2024-08-11 04:44 | PC.NURSE ---
Pt. is alert and orientated x 4. Pt. is on oxygen 3 liters per nasal cannula. Pt is on baeline Oxygen requirement. Pt. was having minimal amount of headache pain tonight. Pt. had low blood pressure. 90/49. Dr. Perez notified. Carvediolol was held. Pt's nex blood pressure was 60/40 with an automatic cuff and a manual cuff. Dr. Perez notified. Pt. had a 500 ml bolus of normal saline. Post bolus BP 84/45. Dr. Perez notified again. another bolus of 500 ML normal saline ordered. Post second bolus BP was 108/55. Pt. remained A&O x 4. . Didd have a light headed spell when up to bathroom, nurse was on standby and assisted back to bed safely. Pt. fell asleep after that and has slept quietly and comfortable. for the last couple of hours. Personal items and call melgar in reach, ,
[2024-08-11 06:49] LABS: Basophils % 0.5 % (0.1-2.0); Eosinophils % 0.5 % (0.1-12.0); Immature Granulocytes # 0.12 10^3uL; Immature Granulocytes % 1.4 %; Lymphocytes # 0.6 K/mm3 (0.7-4.5); Lymphocytes % 7.4 % (10-50); Mean Corpuscular HGB Conc 31.4 g/dL (31.8-35.4); Mean Corpuscular Hemoglobin 26.8 pg (27.0-31.2); Mean Corpuscular Volume 85.2 fl (81-99); Mean Platelet Volume 10.1 fl (7.4-10.4); Monocytes # 1.1 K/mm3 (0.1-1.0); Monocytes % 13.3 % (1.7-9.3); Neutrophils # 6.4 K/mm3 (1.8-7.8); Neutrophils % 76.9 % (37.0-80.0); Nucleated Red Blood Cells # 0 10^3/uL; Nucleated Red Blood Cells % 0 %; Platelet Count 339 K/mm3 (142-424); Red Blood Count 4.11 M/mm3 (4.20-5.40); Red Cell Distribution Width 17.8 % (11.5-17.5); Red Cell Distribution Width-SD 55.8 fL; White Blood Count 8.4 K/mm3 (4.8-10.8)
[2024-08-11 07:03] LABS: Albumin Level 3.3 g/dl (3.5-5.0); Chloride 96 mmol/L (98-107); Potassium 3.7 mmoL/L (3.5-5.1); Sodium 131 mmol/L (136-145)
[2024-08-11 07:06] LABS: Alanine Aminotransferase 10 U/L (12-78); Albumin/Globulin Ratio 1.2 (1.1-1.8); Alkaline Phosphatase 75 U/L (38-126); Anion Gap 4.7 mEq/L (5-15); Aspartate Amino Transferase 19 U/L (14-36); Blood Urea Nitrogen 21 mg/dl (7-17); Carbon Dioxide 34 mmol/L (22.0-30.0); Creatinine Clearance Estimated 32 mL/min (50-200); Estimated Glomerular Filt Rate 72 ml/min (>60); GFR (African American) 87 ML/MIN (>60); Globulin 2.7 g/dL (1.3-3.2)
[2024-08-11 07:07] LABS: Calcium 9.2 mg/dl (8.4-10.2); Glucose 81 mg/dl (74-100)
[2024-08-11 07:11] LABS: Hemoglobin 10.7 g/dL (12.2-16.2)
[2024-08-11 07:12] LABS: Bilirubin,Total < 0.1 mg/dl (0.2-1.3)
[2024-08-11 07:30] LABS: Magnesium 1.7 mg/dl (1.6-2.3)
[2024-08-11 08:00] VITALS: BP 113/44; PULSE 91; RESP 16; TEMP 36.5; O2SAT 96
[2024-08-11] MEDS: APIXABAN 5MG TABLET 5 MG PO (09:42)
[2024-08-11] MEDS: SENNOSIDES 8.6MG/DOCUSATE 50MG TABLET 2 TAB PO ×2 (09:42→21:01)
--- NOTE | 2024-08-11 10:21 | PC.NURSE ---
notified MD about patients BP 113/44 HR 91. MD ordered to hold coreg.
[2024-08-11] MEDS: AMIODARONE 200MG TABLET 200 MG PO (10:26)
--- NOTE | 2024-08-11 10:46 | EXP.DC.SUM ---
General Admission date:: 08/08/24 Discharge date: 08/11/24 HPI HPI HPI: 68-year-old female presents to the ED today for complaint of headache, nausea, vomiting. History is largely limited to the severity of her headache. Patient states that she was discharged this morning at 5 AM and her headache had gone away at 7 AM she says she got sick again. She describes her headache as squeezing and severe in nature. Additionally she is having significant nausea and inability to tolerate p.o. for approximately 2 days. She is also having emesis which is nonbloody. She is constipated and not had a bowel movement in 2 days. She denies any other concerning symptoms or complaints at this time. In the emergency department she was given several medications while here and in observation. She was given Tylenol IV, Reglan, Benadryl, Toradol, Zofran, droperidol and 2 L of IV fluids. With no improvement of her symptoms. Repeat CT with and without contrast was performed with no acute intracranial abnormalities. Discussed with patient options including admission versus medications and discharge. Due to her symptoms she is going to be admitted. History independently obtained. Diagnostic and laboratory evaluation dependently interpreted. Prior records were reviewed. Case was discussed with ER provider. Exam Data for Last 24 hours Vital signs and Labs for Last 24 Hours: Temp Pulse Resp BP Pulse Ox O2 Del Method O2 Flow Rate 98.4 F 113 H 19 166/85 H 100 Nasal Cannula 3 08/09/24 08:00 08/09/24 08:00 08/09/24 08:00 08/09/24 08:00 08/09/24 08:00 08/09/24 08:52 08/09/24 08:52 Laboratory Results - last 24 hr 08/08/24 17:15: WBC 13.0 H, RBC 4.70, Hgb 12.6, Hct 38.9, MCV 82.8, MCH 26.8 L, MCHC 32.4, RDW 18.1 H, Plt Count 403, MPV 9.7, Neut % (Auto) 88.3 H, Lymph % (Auto) 4.3 L, [place] % (Auto) 6.4, Eos % (Auto) 0.2, Baso % (Auto) 0.3, Neut # (Auto) 11.5 H, Lymph # (Auto) 0.6 L, [place] # (Auto) 0.8, Eos # (Auto) 0.0, Baso # (Auto) 0.0, PT 10.5, INR 0.94, D-Dimer 0.80 H, Sodium 129 L, Potassium 4.6, Chloride 90 L, Carbon Dioxide 32 H, Anion Gap 11.6, BUN 9, Creatinine 0.40 L, Estimated Creat Clear 34, Estimated GFR 159, Est GFR ( Amer) 193, Glucose 135 H, Calcium 9.2, Magnesium 1.6 D, Total Bilirubin 0.7, AST 31, ALT 16, Alkaline Phosphatase 97, Total Protein 8.6 H, Albumin 4.4 D, Globulin 4.2 H, Albumin/Globulin Ratio 1.0 L, Lipase 39 08/08/24 19:00: Urine Color Yellow, Urine Appearance Clear, Urine pH 8.0, Ur Specific [place] 1.020, Urine Protein Negative, Urine Glucose (UA) Negative, Urine Ketones Trace, Urine Blood Negative, Urine Nitrate Negative, Urine Bilirubin Negative, Urine Urobilinogen 0.2, Ur Leukocyte Esterase Negative, Urine WBC Occasional, Ur Squamous Epith Cells Occasional, Amorphous Sediment 2+, Urine Bacteria 2+ 08/09/24 06:20: WBC 7.9 D, RBC 4.91, Hgb 13.2, Hct 40.3, MCV 82.1, MCH 26.9 L, MCHC 32.8, RDW 17.8 H, Plt Count 462 H, MPV 10.0, Neut % (Auto) 89.4 H, Lymph % (Auto) 5.0 L, [place] % (Auto) 3.9, Eos % (Auto) 0.0 L, Baso % (Auto) 0.3, Neut # (Auto) 7.0, Lymph # (Auto) 0.4 L, [place] # (Auto) 0.3, Eos # (Auto) 0.0, Baso # (Auto) 0.0, Total Counted 100, Neutrophils % (Manual) 89 H, Lymphocytes % (Manual) 7 L, Monocytes % (Manual) 4, Platelet Estimate Slight increase, RBC Morphology Normal, Sodium 129 L, Potassium 4.3, Chloride 94 L, Carbon Dioxide 31 H, Anion Gap 8.3, BUN 14 D, Creatinine 0.50 L D, Estimated Creat Clear 34, Estimated GFR 123, Est GFR ( Amer) 149 D, Glucose 147 H, Calcium 9.1, Phosphorus 4.1, Magnesium 2.0 D, Total Bilirubin 0.3, AST 34, ALT 17, Alkaline Phosphatase 102, Total Protein 7.9, Albumin 4.1, Globulin 3.8 H, Albumin/Globulin Ratio 1.1, Triglycerides 103, Cholesterol 249 H, LDL Cholesterol Direct 150.88 H, VLDL Cholesterol 21, HDL Cholesterol 46, Cholesterol/HDL Ratio 5.4 H I & O for Last 24 hours: Intake & Output 08/06/24 08/07/24 08/08/24 08/09/24 23:59 23:59 23:59 23:59 Intake Total 390 / 390 Balance 390 / 390 Weight 39.916 kg 39.916 kg Results Data Completed and Pending Labs on day of discharge: Labs from last 24 hours 08/09/24 08/08/24 08/08/24 06:20 19:00 17:15 WBC 7.9 D 13.0 H RBC 4.91 4.70 Hgb 13.2 12.6 Hct 40.3 38.9 MCV 82.1 82.8 MCH 26.9 L 26.8 L MCHC 32.8 32.4 RDW 17.8 H 18.1 H Plt Count 462 H 403 MPV 10.0 9.7 Neut % (Auto) 89.4 H 88.3 H Lymph % (Auto) 5.0 L 4.3 L [place] % (Auto) 3.9 6.4 Eos % (Auto) 0.0 L 0.2 Baso % (Auto) 0.3 0.3 Neut # (Auto) 7.0 11.5 H Lymph # (Auto) 0.4 L 0.6 L Howard # (Auto) 0.3 0.8 Eos # (Auto) 0.0 0.0 Baso # (Auto) 0.0 0.0 Total Counted 100 Neutrophils % (Manual) 89 H Lymphocytes % (Manual) 7 L Monocytes % (Manual) 4 Platelet Estimate Slight increase RBC Morphology Normal PT 10.5 INR 0.94 D-Dimer 0.80 H Sodium 129 L 129 L Potassium 4.3 4.6 Chloride 94 L 90 L Carbon Dioxide 31 H 32 H Anion Gap 8.3 11.6 BUN 14 D 9 Creatinine 0.50 L D 0.40 L Estimated Creat Clear 34 34 Estimated GFR 123 159 Est GFR ( Amer) 149 D 193 Glucose 147 H 135 H Calcium 9.1 9.2 Phosphorus 4.1 Magnesium 2.0 D 1.6 D Total Bilirubin 0.3 0.7 AST 34 31 ALT 17 16 Alkaline Phosphatase 102 97 Total Protein 7.9 8.6 H Albumin 4.1 4.4 D Globulin 3.8 H 4.2 H Albumin/Globulin Ratio 1.1 1.0 L Triglycerides 103 Cholesterol 249 H LDL Cholesterol Direct 150.88 H VLDL Cholesterol 21 HDL Cholesterol 46 Cholesterol/HDL Ratio 5.4 H Lipase 39 Urine Color Yellow Urine Appearance Clear Urine pH 8.0 Ur Specific [place] 1.020 Urine Protein Negative Urine Glucose (UA) Negative Urine Ketones Trace Urine Blood Negative Urine Nitrate Negative Urine Bilirubin Negative Urine Urobilinogen 0.2 Ur Leukocyte Esterase Negative Urine WBC Occasional Ur Squamous Epith Cells Occasional Amorphous Sediment 2+ Urine Bacteria 2+ DS: Diagnosis Discharge Diagnosis (1) Lung cancer: Status: Acute Code(s): C34.90 - Malignant neoplasm of unspecified part of unspecified bronchus or lung (2) Nausea & vomiting: Status: Acute Code(s): R11.2 - Nausea with vomiting, unspecified (3) Migraine: Status: Acute Code(s): G43.909 - Migraine, unspecified, not intractable, without status migrainosus (4) CAD (coronary atherosclerotic disease): Status: Acute Code(s): I25.10 - Atherosclerotic heart disease of [place] coronary artery without angina pectoris Qualifiers: Associated angina: without angina Coronary Disease-Associated Artery/Lesion type: [place] artery [place] vs. transplanted heart: [place] heart Qualified Code(s): I25.10 - Atherosclerotic heart disease of [place] coronary artery without angina pectoris Meds Home Medications and Allergies Home Medications ?Medication ?Instructions ?Recorded ?Confirmed ?Type umeclidinium 62.5 mcg-vilanterol 1 inh inhalation DAILY 30 days #60 07/11/24 08/08/24 Rx 25 mcg/actuation powdr for ea inhalation (Anoro Ellipta) apixaban 5 mg tablet (Eliquis) 5 mg PO BID 08/02/24 08/08/24 History promethazine 25 mg [address] Q6H PRN nausea and 08/08/24 08/09/24 Rx suppository vomiting #24 ea trazodone 50 mg tablet 25 mg PO HSP PRN Sleep 08/09/24 08/09/24 History carvedilol 6.25 mg tablet 6.25 mg PO BID 30 days #60 tabs 08/11/24 Rx oxycodone-acetaminophen 5 mg-325 1 tab PO Q4-6H PRN Moderate To 08/11/24 Rx mg tablet Severe Pain (4-10) #14 tabs pantoprazole 40 mg tablet,delayed 40 mg PO HS 30 days #30 tabs 08/11/24 Rx release polyethylene glycol 3350 17 gram 17 g PO DAILY 30 days #30 ea 08/11/24 Rx oral powder packet (HealthyLax) sennosides 8.6 mg-docusate sodium 1 tab-cap PO BID PRN constipation 08/11/24 Rx 50 mg tablet (Stimulant Laxative #60 tabs Plus) New Prescriptions to Start Prescriptions: juanitavedilol Yariel Weir oxycodone-acetaminophen Yariel Weir pantoprazole Yariel Weir polyethylene glycol 3350 [HealthyLax] Yariel Weir sennosides-docusate sodium [Stimulant Laxative Plus] Yariel Weir Allergies Allergy/AdvReac Type Severity Reaction Status Date / Time diazepam AdvReac Severe Vomiting Verified 08/02/24 12:53 aspirin AdvReac Other Verified 08/02/24 12:53 Discharge Plan Disposition Patient Disposition: Home, Self-Care Condition: Fair Follow up Plan Follow up with: Leonel Gu MD [Staff Physician, Oncology] - 08/16/24 2:30 pm Yoli Prather PA [Referring, Medical] - 08/16/24 3:30 pm Prescriptions/Medication Reconciliation: New polyethylene glycol 3350 [HealthyLax] 17 gram Powder In Packet 17 g PO DAILY 30 Days Qty: 30 0RF pantoprazole 40 mg Tablet,Delayed Release (Dr/Ec) 40 mg PO HS 30 Days Qty: 30 0RF sennosides-docusate sodium [Stimulant Laxative Plus] 8.6-50 mg Tablet 1 tab-cap PO BID PRN (Reason: constipation) Qty: 60 0RF oxycodone-acetaminophen 5-325 mg Tablet 1 tab PO Q4-6H PRN (Reason: Moderate To Severe Pain (4-10)) Qty: 14 0RF carvedilol 6.25 mg Tablet 6.25 mg PO BID 30 Days Qty: 60 0RF Continued Eliquis 5 mg tablet 5 mg PO BID Patient Comments: TAKE TWO TABLETS BY MOUTH TWICE DAILY FOR 7 DAYS THEN TAKE ONE TABLET BY MOUTH TWICE DAILY THEREAFTER promethazine 25 mg suppository [address] Q6H PRN (Reason: nausea and vomiting) Qty: 24 2RF umeclidinium-vilanterol [Anoro Ellipta] 62.5-25 mcg/actuation Blister With Device 1 inh inhalation DAILY 30 Days Qty: 60 0RF trazodone 50 mg tablet 25 mg PO HSP PRN (Reason: Sleep) Patient Comments: TAKE 1/2 (ONE-HALF) TABLET BY MOUTH AT BEDTIME NEEDED FOR INSOMNIA Discontinued oxycodone 5 mg tablet 5 mg PO BIDP PRN (Reason: Pain) Qty: 60 0RF amiodarone 200 mg tablet 200 mg PO DAILY Patient Comments: TAKE 1 TABLET BY MOUTH ONCE DAILY Problem Reconciliation Problems Reviewed?: Yes Patient Discharge Instructions ACTIVITY: Continue current activity DIET: continue same diet Patient Instructions: DI for Migraine, DI for Nausea -- Adult, Stop Light Heart Failure Print Language: Moh[place] Providers Primary Care Provider: Mk Reagan Admit Provider: Yariel Weir Attending Provider: Yariel Weir
[2024-08-11 12:00] VITALS: BP 180/90; PULSE 106; RESP 16; TEMP 36.6; O2SAT 99
[2024-08-11] MEDS: OXYCODONE 5MG W/APAP 325MG TABLET 1 EACH PO ×2 (14:47→21:20)
[2024-08-11] MEDS: ONDANSETRON 4MG/2ML VIAL 4 MG IV (14:47)
--- NOTE | 2024-08-11 15:09 | P.PN_ITS ---
Subjective *Date: 08/11/24 *Time: 17:22 Interval history: Initially felt that this morning. Headache was resolved. After taking morning meds, had abdominal pain and headache. Concerned that is related to her amiodarone. States she has had this before and felt better when she stopped her meds on her own at home. Denies any juan emesis but is having some nausea. Yanira felt better after large bowel movement last night. Stable on baseline oxygen of 3 L Medical Exam Vital signs and Labs for Last 24 Hours: Vital Signs Temp Pulse Resp BP Pulse Ox O2 Del Method O2 Flow Rate 08/11/24 13:00 Nasal Cannula 3 08/11/24 12:00 97.9 F 106 H 16 180/90 H 99 08/11/24 11:00 Nasal Cannula 08/11/24 09:00 Nasal Cannula 08/11/24 08:00 Nasal Cannula 3 08/11/24 08:00 97.7 F 91 H 16 113/44 L 96 08/11/24 06:58 Room Air 08/11/24 05:00 Nasal Cannula 3 08/11/24 03:00 Nasal Cannula 2 08/11/24 02:00 98.0 F 80 16 108/55 L Nasal Cannula 3 08/11/24 01:00 Room Air 08/11/24 00:30 82 16 84/45 L 98 Nasal Cannula 3 08/10/24 23:52 64/40 L 08/10/24 23:50 97.6 F 82 16 61/41 L 98 Nasal Cannula 08/10/24 23:00 Room Air 08/10/24 21:00 Nasal Cannula 3 08/10/24 20:00 99 Nasal Cannula 3 08/10/24 20:00 96.9 F L 88 17 90/49 L 99 Nasal Cannula 3 08/10/24 18:54 Nasal Cannula 08/10/24 17:00 Nasal Cannula 08/10/24 16:00 97.8 F 95 H 18 148/82 H 99 Nasal Cannula 3 Intake and Output 08/10/24 08/11/24 08/11/24 23:59 07:59 15:59 Intake Total 1150 / 1150 Output Total 0 / 1000 Balance 0 / 390 1150 / 1150 Intake: Intake, Total IV Amount 1150 / 1150 0.9 % Sodium Chloride 1000ML 500 / 500 500 ml @ 500 mls/hr IV .Q1H ONE Rx#:[id number] Lactated Ringers 1000ML 500 ml 500 / 500 @ 250 mls/hr IV .Q2H ONE Rx#: [id number] Levofloxacin/D5w 750 mg/150 ml 150 / 150 750 mg In 150 ml @ 100 mls/hr IV ONCE ONE Rx#:[id number] Output: Output, Urine Amount 0 / 1000 Other: Number of Unmeasured Voids 1 Number of Bowel Movements 1 Laboratory Results - last 24 hr 08/11/24 05:57: WBC 8.4 D, RBC 4.11 L, Hgb 10.7 L D, Hct 35.0 L, MCV 85.2, MCH 26.8 L, MCHC 31.4 L, RDW 17.8 H, Plt Count 339, MPV 10.1, Neut % (Auto) 76.9, Lymph % (Auto) 7.4 L, [place] % (Auto) 13.3 H, Eos % (Auto) 0.5, Baso % (Auto) 0.5, Neut # (Auto) 6.4, Lymph # (Auto) 0.6 L, [place] # (Auto) 1.1 H, Eos # (Auto) 0.0, Baso # (Auto) 0.0, Sodium 131 L, Potassium 3.7, Chloride 96 L, Carbon Dioxide 34 H, Anion Gap 4.7 L, BUN 21 H, Creatinine 0.80 D, Estimated Creat Clear 32, Estimated GFR 72, Est GFR ( Amer) 87 D, Glucose 81 D, Calcium 9.2, Magnesium 1.7, Total Bilirubin < 0.1 L, AST 19 D, ALT 10 L, Alkaline Phosphatase 75, Total Protein 6.0 L, Albumin 3.3 L D, Globulin 2.7, Albumin/Globulin Ratio 1.2 I & O for Labs for Last 24 Hours: Intake & Output 08/08/24 08/09/24 08/10/24 08/11/24 23:59 23:59 23:59 23:59 Intake Total 780 / 780 240 / 1390 1150 / 1150 Output Total 1000 / 1000 Balance 780 / 780 -760 / 390 1150 / 1150 Weight 39.916 kg 39.916 kg 37.6 kg Constitutional: Present mild distress, cachectic and chronically ill appearing Head: Present atraumatic and normocephalic ENT: Present normal exam Comment:: Head nontender Respiratory: Absent rhonchi, wheezes or crackles Cardiac: Present Reg Rate and Rhythm GI: Present soft, tenderness (Diffuse, nonfocal) and normal bowel sounds; Absent distention Extremities: Present normal inspection and full ROM Skin: Present intact; Absent erythema Neuro: Present Grossly Intact, alert, awake, oriented x 3 and moves all extremities Assessment and Plan *Assessment and plan (1) Migraine: Status: Acute Qualifiers: Intractability: intractable Migraine type: unspecified Status migrainosus presence: with status migrainosus Qualified Code(s): G43.911 - Migraine, unspecified, intractable, with status migrainosus Category: Medical Code(s): G43.909 - Migraine, unspecified, not intractable, without status migrainosus (2) Lung cancer: Status: Acute Category: Medical Code(s): C34.90 - Malignant neoplasm of unspecified part of unspecified bronchus or lung (3) Nausea & vomiting: Status: Acute Category: Medical Code(s): R11.2 - Nausea with vomiting, unspecified (4) CAD (coronary atherosclerotic disease): Status: Acute Qualifiers: Associated angina: without angina Coronary Disease-Associated Artery/Lesion type: [place] artery [place] vs. transplanted heart: [place] heart Qualified Code(s): I25.10 - Atherosclerotic heart disease of [place] coronary artery without angina pectoris Category: Medical Code(s): I25.10 - Atherosclerotic heart disease of [place] coronary artery without angina pectoris (5) Constipation due to opioid therapy: Status: Acute Category: Medical Code(s): K59.03 - Drug induced constipation; T40.2X5A - Adverse effect of other opioids, initial encounter Plan Admitted for status migrainosus refractory to medical therapy in the emergency department. Responded to Dilaudid last night. Headache recurrent today. Concern for abdominal pain. KUB shows significant constipation. Continues to require inpatient management. Anticipate discharge in the next day or 2. Problems addressed as follows: Status migrainosus/headache - Responded to IV Dilaudid. Continues to have nausea related to headache pain intermittently. Was better this morning but recurred after taking her amiodarone. Will discontinue at this time. -Increased pain regimen for her cancer pain. Continue oxycodone 5 mg every 6 hours as needed. Use Dilaudid sparingly, monitor for toxicity -Imitrex avoided due to obstructive coronary artery disease - Reviewed CT obtained from previous visit to the ER, no mass effect or concern for metastatic disease from her lung cancer at this time. - Kidney function stable this morning with BUN 21, creatinine 0.8. Magnesium 1.7. Potassium 3.7. Replacing per electrolyte protocol. Repeat CBC, CMP, magnesium ordered for the morning Nausea vomiting severe - Zofran 4 mg every 6 hours as needed - Pantoprazole 40 mg IV nightly. - Continue bowel regimen for constipation. MiraLAX daily, docusate senna twice daily as needed. Heart failure reduced ejection fraction, compensated CAD - Discontinue amiodarone due to headache. Continue Coreg 6.25 mg twice daily. Continue Eliquis 5 mg twice daily Continue Anoro daily for COPD Continue trazodone 25 mg nightly as needed for sleep Full code Regular diet
[2024-08-11] MEDS: HYDROMORPHONE 2MG/ML SYRINGE 0.5 MG IV (15:10)
[2024-08-11 15:49] VITALS: BP 139/72; PULSE 100; RESP 16; TEMP 36.6; O2SAT 99
[2024-08-11] MEDS: POLYETHYLENE GLYCOL 3350 17 GM PACKET PO (16:36)
--- NOTE | 2024-08-11 17:19 | PC.NURSE ---
notified MD of BP 180s/90s. patient stated her headache pain as a 9/10, new orders received
--- NOTE | 2024-08-11 17:59 | PC.NURSE ---
1535: 22 gauge IV placed in left AC due to previous IV leaking
[2024-08-11 20:00] VITALS: BP 100/56; PULSE 93; RESP 18; TEMP 36.8; O2SAT 98
[2024-08-11] MEDS: TRAZODONE 50MG TABLET 25 MG PO (21:01)
[2024-08-11] MEDS: PROMETHAZINE HCL 25MG/ML 1ML VIAL 25 MG IV (21:20)
[2024-08-11] MEDS: SODIUM CHLORIDE 0.9% 25ML BAG 25 ML IV (21:20)
--- NOTE | 2024-08-12 00:30 | PC.NURSE ---
Patient requested to refuse vital sign assessment (due at 00:00), stating that she needed to sleep.
[2024-08-12 04:00] VITALS: BP 123/64; PULSE 89; RESP 18; TEMP 36.5; O2SAT 99; BMI 16.5
--- NOTE | 2024-08-12 04:10 | PC.NURSE ---
Patient is alert and oriented x4. She was observed to have eyes closed, respirations even and unlabored on 3 L of oxygen (patient's baseline) via nasal cannula, and no apparent distress throughout the majority of the night. Oxygen saturations have remained > 90%. Patient has had migraine and nausea complaints this shift; Percocet and Phenergan were administered per MAR for reported relief of these symptoms. Scheduled medications were administered as appropriately per MAR. However, Coreg was held per Chris HUNT due to hypotension, and Protonix and Eliquis were refused by the patient. Vital sign assessment due at 00:00 this shift was refused, vital sign assessment due at 04:00 was taken. Upon auscultation of her lungs, diminished sounds were heard anteriorly/posteriorly. Patient reports having an intermittent, nonproductive cough. Appetite fair, tolerated chocolate pudding intake without further nausea/vomiting. Skin issues documented accordingly. Patient ambulates with x1 assistance. At this time, the patient is resting in bed without any further complaints. No new needs at this time. Call light within reach.
[2024-08-12 06:28] LABS: Basophils % 0.4 % (0.1-2.0); Eosinophils # 0.1 Kmm3 (0.0-0.4); Eosinophils % 1.2 % (0.1-12.0); Hematocrit 33.2 % (37.0-47.0); Hemoglobin 10.6 g/dL (12.2-16.2); Immature Granulocytes # 0.08 10^3uL; Lymphocytes # 0.7 K/mm3 (0.7-4.5); Lymphocytes % 8.7 % (10-50); Mean Corpuscular HGB Conc 31.9 g/dL (31.8-35.4); Mean Corpuscular Hemoglobin 27.3 pg (27.0-31.2); Mean Corpuscular Volume 85.6 fl (81-99); Mean Platelet Volume 9.9 fl (7.4-10.4); Monocytes % 12.4 % (1.7-9.3); Neutrophils # 6.3 K/mm3 (1.8-7.8); Neutrophils % 76.3 % (37.0-80.0); Nucleated Red Blood Cells # 0 10^3/uL; Nucleated Red Blood Cells % 0 %; Platelet Count 323 K/mm3 (142-424); Red Blood Count 3.88 M/mm3 (4.20-5.40); Red Cell Distribution Width 17.7 % (11.5-17.5); Red Cell Distribution Width-SD 55.7 fL; White Blood Count 8.2 K/mm3 (4.8-10.8)
[2024-08-12 06:37] LABS: Albumin Level 3.3 g/dl (3.5-5.0); Chloride 96 mmol/L (98-107); Sodium 133 mmol/L (136-145)
[2024-08-12 06:38] LABS: Potassium 4.2 mmoL/L (3.5-5.1)
[2024-08-12 06:40] LABS: Alanine Aminotransferase 9 U/L (12-78); Albumin/Globulin Ratio 1.2 (1.1-1.8); Alkaline Phosphatase 84 U/L (38-126); Anion Gap 6.2 mEq/L (5-15); Aspartate Amino Transferase 19 U/L (14-36); Blood Urea Nitrogen 13 mg/dl (7-17); Carbon Dioxide 35 mmol/L (22.0-30.0); Creatinine Clearance Estimated 33 mL/min (50-200); Estimated Glomerular Filt Rate 100 ml/min (>60); GFR (African American) 121 ML/MIN (>60); Globulin 2.7 g/dL (1.3-3.2)
[2024-08-12 06:41] LABS: Calcium 8.6 mg/dl (8.4-10.2); Glucose 96 mg/dl (74-100)
[2024-08-12 06:54] LABS: Bilirubin,Total < 0.1 mg/dl (0.2-1.3)
[2024-08-12 07:55] VITALS: BP 131/70; PULSE 95; RESP 16; TEMP 36.5; O2SAT 90
[2024-08-12] MEDS: CARVEDILOL 6.25MG TABLET 6.25 MG PO (08:31)
[2024-08-12] MEDS: APIXABAN 5MG TABLET 5 MG PO (08:31)
[2024-08-12] MEDS: SENNOSIDES 8.6MG/DOCUSATE 50MG TABLET 2 TAB PO (08:31)
[2024-08-12] MEDS: POLYETHYLENE GLYCOL 3350 17 GM PACKET PO (08:31)
[2024-08-12 08:32] LABS: Magnesium 1.6 mg/dl (1.6-2.3)
--- NOTE | 2024-08-12 12:10 | EXP.DC.SUM ---
General Admission date:: 08/08/24 Hospital Course Hospital Course Hospital Course: Alba Melo is a 68-year-old female with a medical history significant for SCC of the right lung on truda with Dr. 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 #Status migrainosus/headache - Responded to IV Dilaudid. Continues to have nausea related to headache pain intermittently. Was better this morning but recurred after taking her amiodarone. Will discontinue at this time. - Imitrex avoided due to obstructive coronary artery disease. - Reviewed CT obtained from previous visit to the ER, no mass effect or concern for metastatic disease from her lung cancer at this time. #Nausea vomiting severe #Fecal impaction ? Having bowel movements here with bowel regimen. - Continue bowel regimen for constipation. MiraLAX daily, docusate senna twice daily as needed. #Heart failure reduced ejection fraction, compensated #CAD #A-fib - Discontinue amiodarone due to headache. Continue Coreg 6.25 mg twice daily. Continue Eliquis 5 mg twice daily #History of LLL pulmonary embolism ? In the setting of lung cancer. Continue Eliquis 5 mg twice daily. #Squamous cell carcinoma of right lung $COPD - Follows with Dr. Gu, oncology. On truda. ? Continue regular follow-ups with oncology. - Continue Anoro Ellipta. #HFmrEF #CAD s/p 2 stents #History of left subclavian artery stenosis #History of medical nonadherence ? ECHO 12/10/2023 LVEF 45%, severe hypokinesis of the basal septal, inferior septal, and anteroseptal LV [place]. ? Has a known RCA in-stent restenosis, cardiology not pursuing [facility] due to nonadherence to medications. ? Continue Plavix (allergic to aspirin). LDL at goal. #Severe protein malnutrition ? Nutrition consulted, provided counseling and supplements. Exam Data for Last 24 hours Vital signs and Labs for Last 24 Hours: Temp Pulse Resp BP Pulse Ox O2 Del Method O2 Flow Rate 97.7 F 95 H 16 131/70 90 L Non-Rebreather 3 08/12/24 07:55 08/12/24 07:55 08/12/24 07:55 08/12/24 07:55 08/12/24 07:55 08/12/24 10:27 08/12/24 10:27 Laboratory Results - last 24 hr 08/12/24 05:47: WBC 8.2, RBC 3.88 L, Hgb 10.6 L, Hct 33.2 L, MCV 85.6, MCH 27.3, MCHC 31.9, RDW 17.7 H, Plt Count 323, MPV 9.9, Neut % (Auto) 76.3, Lymph % (Auto) 8.7 L, [place] % (Auto) 12.4 H, Eos % (Auto) 1.2, Baso % (Auto) 0.4, Neut # (Auto) 6.3, Lymph # (Auto) 0.7, [place] # (Auto) 1.0, Eos # (Auto) 0.1, Baso # (Auto) 0.0, Sodium 133 L, Potassium 4.2, Chloride 96 L, Carbon Dioxide 35 H, Anion Gap 6.2, BUN 13 D, Creatinine 0.60 D, Estimated Creat Clear 33, Estimated GFR 100, Est GFR ( Amer) 121 D, Glucose 96, Calcium 8.6, Magnesium 1.6, Total Bilirubin < 0.1 L, AST 19, ALT 9 L, Alkaline Phosphatase 84, Total Protein 6.0 L, Albumin 3.3 L, Globulin 2.7, Albumin/Globulin Ratio 1.2 I & O for Last 24 hours: Intake & Output 08/09/24 08/10/24 08/11/24 08/12/24 23:59 23:59 23:59 23:59 Intake Total 780 / 780 240 / 1390 1510 / 1835 325 / 325 Output Total 1000 / 1000 Balance 780 / 780 -760 / 390 1510 / 1835 325 / 325 Weight 39.916 kg 37.6 kg 38.102 kg Constitutional Constitutional: no acute distress and cachectic *Routine HEENT Exam Head: Present normocephalic Eye: Present EOMI and PERRL ENT: Present mucous membranes moist *Routine Neck Exam Neck: Present supple; Absent lymphadenopathy *Routine Respiratory Exam Respiratory: Present CTA bilaterally *Routine Cardiovascular Exam Cardiovascular: Present RRR *Routine Abdominal Exam Abdominal: Present soft and normoactive bowel sounds; Absent tenderness *Routine Extremities Exam Extremities: Absent cyanosis, clubbing or edema *Routine Skin Exam Skin: Present warm; Absent rash *Routine Neurological Exam Neurological: Present alert and oriented X3 Results Data Completed and Pending Labs on day of discharge: Labs from last 24 hours 08/12/24 05:47 WBC 8.2 RBC 3.88 L Hgb 10.6 L Hct 33.2 L MCV 85.6 MCH 27.3 MCHC 31.9 RDW 17.7 H Plt Count 323 MPV 9.9 Neut % (Auto) 76.3 Lymph % (Auto) 8.7 L [place] % (Auto) 12.4 H Eos % (Auto) 1.2 Baso % (Auto) 0.4 Neut # (Auto) 6.3 Lymph # (Auto) 0.7 [place] # (Auto) 1.0 Eos # (Auto) 0.1 Baso # (Auto) 0.0 Sodium 133 L Potassium 4.2 Chloride 96 L Carbon Dioxide 35 H Anion Gap 6.2 BUN 13 D Creatinine 0.60 D Estimated Creat Clear 33 Estimated GFR 100 Est GFR ( Amer) 121 D Glucose 96 Calcium 8.6 Magnesium 1.6 Total Bilirubin < 0.1 L AST 19 ALT 9 L Alkaline Phosphatase 84 Total Protein 6.0 L Albumin 3.3 L Globulin 2.7 Albumin/Globulin Ratio 1.2 DS: Diagnosis Discharge Diagnosis (1) Migraine: Status: Acute Code(s): G43.909 - Migraine, unspecified, not intractable, without status migrainosus Qualifiers: Intractability: intractable Migraine type: unspecified Status migrainosus presence: with status migrainosus Qualified Code(s): G43.911 - Migraine, unspecified, intractable, with status migrainosus (2) Lung cancer: Status: Acute Code(s): C34.90 - Malignant neoplasm of unspecified part of unspecified bronchus or lung (3) Nausea & vomiting: Status: Resolved Code(s): R11.2 - Nausea with vomiting, unspecified (4) CAD (coronary atherosclerotic disease): Status: Acute Code(s): I25.10 - Atherosclerotic heart disease of [place] coronary artery without angina pectoris Qualifiers: Associated angina: without angina Coronary Disease-Associated Artery/Lesion type: [place] artery [place] vs. transplanted heart: [place] heart Qualified Code(s): I25.10 - Atherosclerotic heart disease of [place] coronary artery without angina pectoris (5) Constipation due to opioid therapy: Status: Acute Code(s): K59.03 - Drug induced constipation; T40.2X5A - Adverse effect of other opioids, initial encounter Meds Home Medications and Allergies Home Medications ?Medication ?Instructions ?Recorded ?Confirmed ?Type umeclidinium 62.5 mcg-vilanterol 1 inh inhalation DAILY 30 days #60 07/11/24 08/08/24 Rx 25 mcg/actuation powdr for ea inhalation (Anoro Ellipta) apixaban 5 mg tablet (Eliquis) 5 mg PO BID 08/02/24 08/08/24 History promethazine 25 mg rectal 25 mg IN Q6H PRN nausea and 08/08/24 08/09/24 Rx suppository vomiting #24 ea trazodone 50 mg tablet 25 mg PO HSP PRN Sleep 08/09/24 08/09/24 History carvedilol 6.25 mg tablet 6.25 mg PO BID 30 days #60 tabs 08/11/24 Rx oxycodone-acetaminophen 5 mg-325 1 tab PO Q4-6H PRN Moderate To 08/11/24 Rx mg tablet Severe Pain (4-10) #14 tabs pantoprazole 40 mg tablet,delayed 40 mg PO HS 30 days #30 tabs 08/11/24 Rx release polyethylene glycol 3350 17 gram 17 g PO DAILY 30 days #30 ea 08/11/24 Rx oral powder packet (HealthyLax) sennosides 8.6 mg-docusate sodium 1 tab-cap PO BID PRN constipation 08/11/24 Rx 50 mg tablet (Stimulant Laxative #60 tabs Plus) New Prescriptions to Start Prescriptions: juanitavedilol Yariel Weir oxycodone-acetaminophen Yariel Weir pantoprazole Yariel Weir polyethylene glycol 3350 [HealthyLax] Yariel Weir sennosides-docusate sodium [Stimulant Laxative Plus] Yariel Weir Allergies Allergy/AdvReac Type Severity Reaction Status Date / Time diazepam AdvReac Severe Vomiting Verified 08/02/24 12:53 aspirin AdvReac Other Verified 08/02/24 12:53 Discharge Plan Disposition Patient Disposition: Home, Self-Care Condition: Fair Discharge Order Discharge Orders: Discharge Order (Routine); Ordered 08/12/24 Ordered By: Kam Drake Follow up Plan Follow up with: Leonel Gu MD [Staff Physician, Oncology] - 08/16/24 2:30 pm Yoli Prather PA [Referring, Medical] - 08/16/24 3:30 pm Prescriptions/Medication Reconciliation: New polyethylene glycol 3350 [HealthyLax] 17 gram Powder In Packet 17 g PO DAILY 30 Days Qty: 30 0RF pantoprazole 40 mg Tablet,Delayed Release (Dr/Ec) 40 mg PO HS 30 Days Qty: 30 0RF sennosides-docusate sodium [Stimulant Laxative Plus] 8.6-50 mg Tablet 1 tab-cap PO BID PRN (Reason: constipation) Qty: 60 0RF oxycodone-acetaminophen 5-325 mg Tablet 1 tab PO Q4-6H PRN (Reason: Moderate To Severe Pain (4-10)) Qty: 14 0RF carvedilol 6.25 mg Tablet 6.25 mg PO BID 30 Days Qty: 60 0RF Continued Eliquis 5 mg tablet 5 mg PO BID Patient Comments: TAKE TWO TABLETS BY MOUTH TWICE DAILY FOR 7 DAYS THEN TAKE ONE TABLET BY MOUTH TWICE DAILY THEREAFTER promethazine 25 mg suppository 25 mg IN Q6H PRN (Reason: nausea and vomiting) Qty: 24 2RF umeclidinium-vilanterol [Anoro Ellipta] 62.5-25 mcg/actuation Blister With Device 1 inh inhalation DAILY 30 Days Qty: 60 0RF trazodone 50 mg tablet 25 mg PO HSP PRN (Reason: Sleep) Patient Comments: TAKE 1/2 (ONE-HALF) TABLET BY MOUTH AT BEDTIME NEEDED FOR INSOMNIA Discontinued oxycodone 5 mg tablet 5 mg PO BIDP PRN (Reason: Pain) Qty: 60 0RF amiodarone 200 mg tablet 200 mg PO DAILY Patient Comments: TAKE 1 TABLET BY MOUTH ONCE DAILY Problem Reconciliation Problems Reviewed?: Yes Patient Discharge Instructions ACTIVITY: Continue current activity DIET: continue same diet Patient Instructions: DI for Migraine, DI for Nausea -- Adult, Stop Light Heart Failure Print Language: Canadian Providers Primary Care Provider: Mk Reagan Admsuzanne Provider: Yariel Weir Attending Provider: Yariel Weir
--- NOTE | 2024-08-15 11:07 | SW/DCPLANNER ---
Spoke with patient on the phone. Patient stated that she is doing good. Patient stated that she is aware of her upcoming appointments. Patient stated that she was able to get her new medicine picked up from clinic Pharmacy. Patient stated that she has no concerns or questions at this time. Clara Santos
== END 2024-08-12 14:54 | disposition home or self-care (01) | DRG 102 ==
LOC: ER 16:21 → 2ND 22:29
PROVIDERS: Nurse Practitioner; Student in an Organized Health Care Education/Training Program; Admitting Provider Internal Medicine Adolescent Medicine; Emergency Provider Student in an Organized Health Care Education/Training Program; PCP Internal Medicine Adolescent Medicine; Visit Provider Internal Medicine Adolescent Medicine
DX: G43.911 Migraine, unspecified, intractable, with status migrainosus (principal); E43 Unspecified severe protein-calorie malnutrition; C34.91 Malignant neoplasm of unspecified part of right bronchus or lung; I50.22 Chronic systolic (congestive) heart failure; Z68.1 Body mass index [BMI] 19.9 or less, adult; E87.1 Hypo-osmolality and hyponatremia; I25.10 Atherosclerotic heart disease of native coronary artery without angina pectoris; J44.9 Chronic obstructive pulmonary disease, unspecified; D50.9 Iron deficiency anemia, unspecified; I48.91 Unspecified atrial fibrillation; K59.03 Drug induced constipation; T40.2X5A Adverse effect of other opioids, initial encounter; G89.3 Neoplasm related pain (acute) (chronic); R11.2 Nausea with vomiting, unspecified; F17.210 Nicotine dependence, cigarettes, uncomplicated; Z91.199 Patient's noncompliance with other medical treatment and regimen due to unspecified reason; Z86.711 Personal history of pulmonary embolism; Z95.5 Presence of coronary angioplasty implant and graft; Z99.81 Dependence on supplemental oxygen; Z79.01 Long term (current) use of anticoagulants; Z79.899 Other long term (current) drug therapy; Z88.8 Allergy status to other drugs, medicaments and biological substances; Z79.620 Long term (current) use of immunosuppressive biologic
CPT/HCPCS: 36415; 71045; 74018; 80053; 80061; 81001; 83690; 83735; 84100; 85007; 85025; 85378; 85610; 87086; 93005; J0131; J1100; J1171; J1200; J1790; J1885; J1956; J2405; J2550; J2765; J3475; J7030; J7120

== ENCOUNTER 2024-08-18 12:59 | Outpatient (CLI) | payer BC, OTHER, SELFPAY ==
--- OUTSIDE RECORDS SUMMARY | 2024-08-18 13:04 | XMS_ITS | Encounter Summary ---
Author Organization Healthcare Address [address] [place] [address] Care Team Providers Care Patient Care Technician Name Role Phone Mk Reagan MD Primary Care Provider [phone] Kehinde Greer MD Unavailable [phone] Encounter Details Date Type Department Care Team (Late st Contact Info) Description 01/18/2024 Lab Requisition [facility] [address] [place] [address] Mu Carrillo MD [address] [facility] [address] [place] [address] Encounter for general adult medical [...] and Family Not on file 01/15/2024 Attends Bahai Services Not on file 01/14 Active Member [...] any time in the past 12 m [facility], were you homeless or living in a penitentiary (including now)? No 01/15/2024 Utilities Answer Date [...] at day 1 01/19/2024 8:51 AM EST [facility] Swab (Nares and Tiffany Rectal) 01/18/2024 8:00 AM EST 01/18/2024 11:29 AM EST us Mu Carrillo MD LAB MICROBIOLOGY - GEN ERAL ORDERABLES Final Result [facility] [address] [place] [address] documented in this encounter Visit Diagnoses Diagnosis Encounter for general adult medical examination without abnormal findings documented in this encounter Additional Health Concerns Assessment Noted Time A Body Mass Index follow-up plan has been documented for the patient 01/26/2024 5:13 PM EST documented as of this encounter Care Teams Patient Care Technician Relationship Specialty Start Date End Date Mk Reagan MD [address] [place] [id number] PCP - General Internal Medicine 01/15/24 Kehinde Greer MD [address] [facility] [address] [place] [address] Consulting Physician Radiation Oncology 02/01/24 documented as of this encounter
--- OUTSIDE RECORDS SUMMARY | 2024-08-18 13:04 | XMS_ITS | Encounter Summary ---
Author Organization Healthcare Address [address] [place] [address] Care Team Providers Care Trailhead Construction Worker Name Role Phone Mk Reagan MD Primary Care Provider [phone] Kehinde Greer MD Unavailable [phone] Encounter Details Date Type Department Care Team (Late st Contact Info) Description 01/19/2024 Lab Requisition [facility] [address] [place] [address] Mu Carrillo MD [address] [facility] [address] [place] [address] Encounter for general adult medical [...] and Family Not on file 01/15/2024 Attends Zoroastrianism Services Not on file 01/14 Active Member [...] any time in the past 12 m [facility], were you homeless or living in a correction (including now)? No 01/15/2024 Utilities Answer Date [...] at day 1 01/20/2024 4:06 AM EST [facility] Swab (Nares and Tiffany Rectal) 01/19/2024 6:00 AM EST 01/19/2024 7:21 AM EST us Mu Carrillo MD LAB MICROBIOLOGY - GEN ERAL ORDERABLES Final Result [facility] [address] [place] [address] documented in this encounter Visit Diagnoses Diagnosis Encounter for general adult medical examination without abnormal findings documented in this encounter Additional Health Concerns Assessment Noted Time A Body Mass Index follow-up plan has been documented for the patient 01/26/2024 5:13 PM EST documented as of this encounter Care Teams Trailhead Construction Worker Relationship Specialty Start Date End Date Mk Reagan MD [address] [place] [address] PCP - General Internal Medicine 01/15/24 Kehinde Greer MD [address] [facility] [address] [place] [address] Consulting Physician Radiation Oncology 02/01/24 documented as of this encounter
--- OUTSIDE RECORDS SUMMARY | 2024-08-18 13:05 | XMS_ITS | Data Portability ---
Author Organization [facility] ADMIN Address [address] [place] [id number] Assessment No assessment recorded. Plan of Treatment Reminders Order Date Submit Date Provider Last Modified By Organization Details Last Modified Time Details Appointments None record ed. Lab None record ed. Referral None record ed. Procedures None record ed. Surgeries None record ed. Imaging XR, chest, 2 view 024 07/01/19 24 [facility] (Centralized Scheduling), [address] [facility], [place], [address], 11:36:40 Medication Orders None record ed. Patient TargetsNo targets recorded. Patient InstructionsNo instructions recorded. Reason for Referral None Reported. Results Created Date Observation Date Name Description Value Unit Range Abnormal Flag Note LastModifiedBy Organization Detail LastModifiedTime 10/28/19 24 10/27/2023 CT, chest , w/o contr ast No observ ation record ed. [facility] (Med Record) [address], [place], [address], 11/06/2023 11:48:34 10/29/19 24 08/27/2023 CT, chest , w/ contr ast No observ ation record ed. [email or web address] [facility] [address], [place], [address], 11/11/2023 16:06:08 02/10/[address], chest , w/o contr ast No observ ation record ed. [email or web address] Not Available 2023 08:43:28 Result Notes None recorded. Medical Equipment None Reported. Allergies Allergen ID Allergen Name Allergen Category Reaction Reaction Severity Criticality Documentation Date Start Date Code Code System Note Provider Name and Address Organization Details Recorded Time 100283 diazepam medicatio n Not available Not available Not available 07/01/2023 3322 RxNorm [place] [facility] & [place] 4 11:13:48 557146 aspirin medicatio n Not available Not available Not available 07/01/2023 1191 RxNorm [place] Rojas [facility] & [place] 4 11:13:58 Medications Name Sig Start Date [...] % 128 /min 97 [degF] 18.1 kg/m2 72996.8 7 g 124 mm[Hg] 59 mm[Hg] Ирина ACUNA - [facility] - [place] & [place] 4 11:13:15 Date Recorded Body height Body temperature Body mass index (BMI) Body weight Heart rate Oxygen saturation Oxygen saturation in Arterial blood by Pulse oximetry Systolic blood pressure Diastolic blood pressure Provider Name and Address Organization Details Last Updated DateTime 4 154.94 cm 98.6 [degF] 18.6 kg/m2 31641.2 1 g 92 /min 100 % 100 % 100 mm[Hg] 62 mm[Hg] Ofelia Tillman [place] - [facility] - [place] & [place] 4 13:13:10 Social History None recorded. Functional Status None recorded. Mental Status None recorded. Family History Nothing Reported. Medical History No medical history recorded. Gynecological HistoryNo gynecological history recorded. Obstetrics History GPAL:G 0 P 0 0 0 0 Past Encounters Encounter ID Performer Location Encounter Start Date Encounter Closed Date Diagnosis/Indication Diagnosis SNOMED-CT Code Diagnosis ICD10 Code Diagnosis Note [id number] [facility] [address] [place] [address] 07/01/2023 10:59:47 07/01/2023 11:35:02 Community acquired pneumonia [id number] J18.9 Exam is unremarkab le. Patient is on 2L NC all the time at home. Will send for follow up chest xray. Will see patient back in 2 weeks to evaluate condition. Fall W19.XXXA Patient fell in our parking lot. She is on blood thinners. She has a bruise/hem atoma on the right jehovah's witness. She also has an abrasion on the right arm. Incident report filed. Management notified. ER notified. Patient sent to [facility] ER to be evaluated. She has a family member to drive her. She is stable upon discharge. [id number] [facility] [address] [place] [address] 07/09/2023 13:01:53 07/09/2023 15:49:49 Community acquired pneumonia [id number] J18.9 Patient remains on 1.5-2L NC. Patient [...] ID Guarantor Name 09/03/2023 1 [place] [id number] Kehinde Jensen [id number] Alba Melo 09/30/2023 1 [place] [id number] Alba Melo [id number] Al[place] Melo 02/07/2024 1 [place] [id number] Kehinde Jensen [id number] Alba Melo Notes Date Note Type [...] resulting in a hematoma on the right jehovah's witness. She is on blood thinners. She also reports an abrasion and pain to the right arm. She is stable in clinic currently. She is requesting to be evaluated by our medical team. She denies any loss of consciousness. Denies any headache. Denies any change in vision or hearing. Mora Poole APRN [id number] , [place], [address], [facility] 07/01/2023 11:57:02 07/09/2023 text/html patient is a 67 year old white female presenting to clinic for hospital follow up for pneumonia. Patient states she continues to feel better. Her SOB improves but she remains on 1.5L NC. She denies any fevers. Denies any sputum production. Denies any chest pain. Mora Poole APRN [id number] , [place], [address], [facility] - [facility] & [place] 07/09/2023 15:14:21 OBGyn Episode No OBEpisode recorded.
--- OUTSIDE RECORDS SUMMARY | 2024-08-18 13:05 | XMS_ITS | Clinical Summary ---
Author Organization [facility] Address [address] [place] [address] Care Team Providers Care News Analyst Name Role Phone Mk Reagan MD Primary Care Provider [phone] Hossein Greer MD Unavailable [phone] Allergies Active Allergy Reactions Criticality Noted Date [...] Date Smoking Tobacco: Every Day Cigarettes 1 48.5 Started: 1976 Passive Smoke Exposure: Never Smokeless [...] and Family Not on file 01/15/2024 Attends Rastafari Services Not on file 01/14 Active Member [...] any time in the past 12 m [facility], were you homeless or living in [...] C Screening 1955 UKY-Infant/Child/Adol SDOH Screenings 1955 GIN-AXQXT-64 Vaccine (#1) 1961 UKY-DTaP,Tdap,and Td Vaccine s [...] this topic Medical Devices Implanted Type Area Sheep Farm Worker Device Identifier Shelf Expiration Date Model / Serial / Lot Stent Stent Heart Description:Two heart stents in right side Stent Stent Neck Stent Bonastent Tracheal/Bronch ial [id number]/[id number] - [id number] Implanted:Qty: 1 on 01/21/2024 by Cesar Irving MD at [facility] [employer]-[id number] 09/09/2026 [facility]-[id number] / / [id number] Procedures Procedure Name Priority Date/Time Associated Diagnosis Comments HEMOGLOBIN A1C Routine 01/15/2024 1:06 AM EST from Last 3 Months or Most Recently Relevant to Health Maintenance Results * (ABNORMAL) Hemoglobin A1c (01/15/2024 1:06 AM EST) Hemoglobin A1c 5.9(H) <5.7 % 01/15/2024 2:59 AM EST [facility] Blood Arterial blood specimen / Unknown Venipuncture / Unknown 01/15/2024 1:06 AM EST 01/15/2024 1:12 AM EST Narrative [facility] - 01/15/2024 2:59 AM EST HA1C Interpretive Data: Diagnosis of Diabetes: Diabetic > or = 6.5% Pre-diabetic 5.7 to 6.4% Non-diabetic < or = 5.6% Glycemic Targets for Type I and Type II Diabetics: Non- Adults <7.0% Adults <6.0% Children and Adolescents <7.5% Source: [place] [employer]. Standards of medical care in diabetes,2017. Diabetes Care.2017:40 (suppl 1):S1-S135. HbA1c assay performed by an ion-exchange chromatography method that is certified traceable to the DCCT. Orlando Oseguera DO LAB BLOOD ORDERABLES Final Result Performing Organization Address City/State/[facility] de Phone Number [facility] [address] [place] [address] from Last 3 Months or Most Recently Relevant to Health Maintenance Insurance HOA Advance Directives * Full Code (Latest Code Status on File) Date Activated Date Inactivated Comments 01/18/2024 5:01 PM 01/26/2024 8:47 PM Question Answer Comments Patient has decision-making capacity? No Healthcare Surrogate: Adult child of the patient Care Teams News Analyst Relationship Specialty Start Date End Date Mk Reagan MD [address] [facility] [address] [place] [address] PCP - General Internal Medicine 01/15/24 Hossein Greer MD [address] [facility] [address] [place] [address] Consulting Physician Radiation Oncology 02/01/24
--- OUTSIDE RECORDS SUMMARY | 2024-08-18 13:05 | XMS_ITS ---
Author Organization [facility] Address [address] [place] [address] Care Team Providers Care Senior Manager Creative Services Name Role Phone Mk Reagan MD Primary Care Provider [phone] Kehinde Greer MD Unavailable [phone] Active Problems Problem Noted Date Diagnosed Date [...]
[2024-08-18 13:30] VITALS: BP 111/61; PULSE 97; RESP 18; TEMP 36.7; O2SAT 98
[2024-08-18] MEDS: PEMBROLIZUMAB 400 MG in 0.9 % SODIUM CHLORIDE 50 ML 132 MG IV (13:30)
[2024-08-18] MEDS: SODIUM CHLORIDE 0.9% 50ML BAG 50 ML IV (13:31)
[2024-08-18 14:08] VITALS: BP 115/68; PULSE 88; O2SAT 99
== END 2024-08-18 14:19 | disposition home or self-care (01) ==
LOC: INF 13:01
PROVIDERS: PCP Internal Medicine Adolescent Medicine; Visit Provider Internal Medicine Medical Oncology
DX: C34.90 Malignant neoplasm of unspecified part of unspecified bronchus or lung (principal)
CPT/HCPCS: 96413; J9271

== ENCOUNTER 2024-09-20 12:40 | Outpatient (CLI) | payer BC, OTHER, SELFPAY ==
--- OUTSIDE RECORDS SUMMARY | 2024-09-20 12:42 | XMS_ITS | Clinical Summary ---
Author Organization [facility] Address [address] [place] [address] Care Team Providers Care Card Seller Name Role Phone Mk Reagan MD Primary Care Provider [phone] Hossein Greer MD Unavailable [phone] Allergies Active Allergy Reactions Criticality Noted Date [...] Date Smoking Tobacco: Every Day Cigarettes 1 48.6 Started: 1976 Passive Smoke Exposure: Never Smokeless [...] and Family Not on file 01/15/2024 Attends Confucianism Services Not on file 01/14 Active Member [...] were you homeless or living in a jail (including now)? No 01/15/2024 Utilities Answer Date [...] C Screening 1955 UKY-Infant/Child/Adol SDOH Screenings 1955 [id number] Vaccine (#1) 1961 UKY-DTaP,Tdap,and Td Vaccine s [...] UKY-Adult SDOH Screenings 07/14/2024 01/15/2024 UKY-Influenza Vaccine (#1) 2024 UKY-Diabetes: Hemoglobin A1C 01/14/2025 01/15/2024 HPV [...] this topic Medical Devices Implanted Type Area Sewer Line Photo Inspector Device Identifier Shelf Expiration Date Model / Serial / Lot Stent Stent Heart Description:Two heart stents in right side Stent Stent Neck Stent Bonastent Tracheal/Bronch ial [id number] - [id number] Implanted:Qty: 1 on 01/21/2024 by Cesar Irving MD at [facility] [employer]-[id number] 09/09/2026 [facility]-[id number] / / [id number] Procedures Procedure Name Priority Date/Time Associated Diagnosis Comments HEMOGLOBIN A1C Routine 01/15/2024 1:06 AM EST from Last 3 Months or Most Recently Relevant to Health Maintenance Results * (ABNORMAL) Hemoglobin A1c (01/15/2024 1:06 AM EST) Hemoglobin A1c 5.9(H) <5.7 % 01/15/2024 2:59 AM EST [facility] Blood Arterial blood specimen / Unknown Venipuncture / Unknown 01/15/2024 1:06 AM EST 01/15/2024 1:12 AM EST Narrative [facility] - 01/15/2024 2:59 AM EST HA1C Interpretive Data: Diagnosis of Diabetes: Diabetic > or = 6.5% Pre-diabetic 5.7 to 6.4% Non-diabetic < or = 5.6% Glycemic Targets for Type I and Type II Diabetics: Non- Adults <7.0% Adults <6.0% Children and Adolescents <7.5% Source: [place] Diabetes Association. Standards of medical care in diabetes,2017. Diabetes Care.2017:40 (suppl 1):S1-S135. HbA1c assay performed by an ion-exchange chromatography method that is certified traceable to the DCCT. Orlando Oseguera DO LAB BLOOD ORDERABLES Final Result Performing Organization Address City/State/[facility] de Phone Number [facility] [address] [place] [address] from Last 3 Months or Most Recently Relevant to Health Maintenance Insurance HOA Advance Directives * Full Code (Latest Code Status on File) Date Activated Date Inactivated Comments 01/18/2024 5:01 PM 01/26/2024 8:47 PM Question Answer Comments Patient has decision-making capacity? No Healthcare Surrogate: Adult child of the patient Care Teams Card Seller Relationship Specialty Start Date End Date Mk Reagan MD [address] [place] [address] PCP - General Internal Medicine 01/15/24 Hossein Greer MD [address] [facility] [address] [place] [address] Consulting Physician Radiation Oncology 02/01/24
--- OUTSIDE RECORDS SUMMARY | 2024-09-20 12:42 | XMS_ITS | Encounter Summary ---
Author Organization Healthcare Address [address] [place] [address] Care Team Providers Care Shell Freezing Machine Operator Name Role Phone Mk Reagan MD Primary Care Provider [phone] Kehinde Greer MD Unavailable [phone] Encounter Details Date Type Department Care Team (Late st Contact Info) Description 01/19/2024 Lab Requisition [facility] [address] [place] [address] Mu Carrillo MD [address] [facility] [address] [place] [address] Encounter for general adult medical [...] and Family Not on file 01/15/2024 Attends Tenriism Services Not on file 01/14 Active Member [...] any time in the past 12 m [facility], were you homeless or living in a fpc (including now)? No 01/15/2024 Utilities Answer Date [...] Final Result [facility] [address] [place] [address] documented in this encounter Visit Diagnoses Diagnosis Encounter for general adult medical examination without abnormal findings documented in this encounter Additional Health Concerns Assessment Noted Time A Body Mass Index follow-up plan has been documented for the patient 01/26/2024 5:13 PM EST documented as of this encounter Care Teams Shell Freezing Machine Operator Relationship Specialty Start Date End Date Mk Reagan MD [address] [place] [address] PCP - General Internal Medicine 01/15/24 Kehinde Greer MD [address] [facility] [address] [place] [address] Consulting Physician Radiation Oncology 02/01/24 documented as of this encounter
--- OUTSIDE RECORDS SUMMARY | 2024-09-20 12:42 | XMS_ITS | Encounter Summary ---
Author Organization Healthcare Address [address] [place] [address] Care Team Providers Care Sifter And Miller Name Role Phone Mk Reagan MD Primary Care Provider [phone] Kehinde Greer MD Unavailable [phone] Encounter Details Date Type Department Care Team (Late st Contact Info) Description 01/18/2024 Lab Requisition [facility] [address] [place] [address] Mu Carrillo MD [address] [facility] [address] [place] [address] Encounter for general adult medical [...] and Family Not on file 01/15/2024 Attends Muslim Services Not on file 01/14 Active Member [...] any time in the past 12 m [facility], were you homeless or living in [...] at day 1 01/19/2024 8:[address] [facility] Swab (Nares and Tiffany Rectal) 01/18/2024 8:00 AM EST 01/18/2024 11:29 AM EST us Mu Carrillo MD LAB MICROBIOLOGY - GEN ERAL ORDERABLES Final Result [facility] [address] [place] [address] documented in this encounter Visit Diagnoses Diagnosis Encounter for general adult medical examination without abnormal findings documented in this encounter Additional Health Concerns Assessment Noted Time A Body Mass Index follow-up plan has been documented for the patient 01/26/2024 5:13 PM EST documented as of this encounter Care Teams Sifter And Miller Relationship Specialty Start Date End Date Mk Reagan MD [address] [place] [address] PCP - General Internal Medicine 01/15/24 Kehinde Greer MD [address] [facility] [address] [place] [address] Consulting Physician Radiation Oncology 02/01/24 documented as of this encounter
--- OUTSIDE RECORDS SUMMARY | 2024-09-20 12:43 | XMS_ITS ---
Author Organization [facility] Address [address] [place] [address] Care Team Providers Care Photo Manager Name Role Phone Mk Reagan MD Primary Care Provider [phone] Kehinde Greer MD Unavailable [phone] Active Problems Problem Noted Date Diagnosed Date [...]
[2024-09-20 12:55] LABS: Hematocrit 31.9 % (37.0-47.0); Hemoglobin 11.1 g/dL (12.2-16.2); Immature Granulocytes % 1.1 %; Mean Corpuscular HGB Conc 34.8 g/dL (31.8-35.4); Mean Corpuscular Hemoglobin 31.5 pg (27.0-31.2); Mean Corpuscular Volume 90.6 fl (81-99); Nucleated Red Blood Cells % 0 %; Platelet Count 507 K/mm3 (142-424); Red Blood Count 3.52 M/mm3 (4.20-5.40); Red Cell Distribution Width-SD 49.7 fL; White Blood Count 12.2 K/mm3 (4.8-10.8)
[2024-09-20 13:04] LABS: Albumin Level 3.7 g/dl (3.5-5.0); Chloride 87 mmol/L (98-107); Sodium 131 mmol/L (136-145)
[2024-09-20 13:05] LABS: Potassium 3.7 mmoL/L (3.5-5.1)
[2024-09-20 13:07] LABS: Alanine Aminotransferase 11 U/L (12-78); Anion Gap 7.7 mEq/L (5-15); Aspartate Amino Transferase 22 U/L (14-36); Blood Urea Nitrogen 5 mg/dl (7-17); Carbon Dioxide 40 mmol/L (22.0-30.0); Creatinine,Serum 0.30 mg/dl (0.52-1.04); Estimated Glomerular Filt Rate 222 ml/min (>60); GFR (African American) 268 ML/MIN (>60)
[2024-09-20 13:08] LABS: Albumin/Globulin Ratio 1.0 (1.1-1.8); Alkaline Phosphatase 128 U/L (38-126); Bilirubin,Total 0.5 mg/dl (0.2-1.3); Calcium 9.4 mg/dl (8.4-10.2); Globulin 3.8 g/dL (1.3-3.2); Glucose 117 mg/dl (74-100); Total Protein,Serum 7.5 g/dl (6.3-8.2)
[2024-09-20 13:39] LABS: Thyroid Stimulating Hormone 27.50 uIU/mL (0.465-4.68)
[2024-09-20] MEDS: PEMBROLIZUMAB 400 MG in 0.9 % SODIUM CHLORIDE 50 ML 132 MG IV (14:20)
[2024-09-20 14:25] VITALS: BP 110/66; PULSE 102; RESP 20; O2SAT 94
[2024-09-20 15:04] VITALS: BP 125/86; PULSE 102; RESP 20; O2SAT 94
== END 2024-09-20 15:04 | disposition home or self-care (01) ==
LOC: INF 12:41
PROVIDERS: PCP Internal Medicine Adolescent Medicine; Visit Provider Internal Medicine Medical Oncology
DX: C34.90 Malignant neoplasm of unspecified part of unspecified bronchus or lung (principal); Z51.11 Encounter for antineoplastic chemotherapy
CPT/HCPCS: 80053; 82533; 84443; 85025; 96413; J9271

== ENCOUNTER 2024-10-04 10:05 | Outpatient (CLI) | payer BC, OTHER, SELFPAY ==
--- OUTSIDE RECORDS SUMMARY | 2024-10-04 10:15 | XMS_ITS | Encounter Summary ---
Author Organization [facility] Address [address] [place] [address] Care Team Providers Care Dental Office Assistant Name Role Phone Mk Reagan MD Primary Care Provider [phone] Kehinde Greer MD Unavailable [phone] Encounter Details Date Type Department Care Team (Late st Contact Info) Description 01/19/2024 Lab Requisition [facility] [address] [place] [address] Mu Carrillo MD [address] [facility] [address] [place] [address] Encounter for general adult medical [...] and Family Not on file 01/15/2024 Attends Scientologist Services Not on file 01/14 Active Member [...] any time in the past 12 m [facility], were you homeless or living [...] at day 1 01/20/2024 4:06 AM EST [facility] Swab (Nares and Tiffany Rectal) 01/19/2024 6:00 AM EST 01/19/2024 7:21 AM EST us Mu Carrillo MD LAB MICROBIOLOGY - GEN ERAL ORDERABLES Final Result [facility] [address] [place] [address] documented in this encounter Visit Diagnoses Diagnosis Encounter for general adult medical examination without abnormal findings documented in this encounter Additional Health Concerns Assessment Noted Time A Body Mass Index follow-up plan has been documented for the patient 01/26/2024 5:13 PM EST documented as of this encounter Care Teams Dental Office Assistant Relationship Specialty Start Date End Date Mk Reagan MD [address] [place] [address] PCP - General Internal Medicine 01/15/24 Kehinde Greer MD [address] [facility] [address] [place] [address] Consulting Physician Radiation Oncology 02/01/24 documented as of this encounter
--- OUTSIDE RECORDS SUMMARY | 2024-10-04 10:15 | XMS_ITS | Clinical Summary ---
Author Organization [facility] Address [address] [place] [address] Care Team Providers Care Exerciser Name Role Phone Mk Reagan MD Primary Care Provider [phone] Hossein Greer MD Unavailable [phone] Allergies Active Allergy Reactions Criticality Noted Date [...] time in the past 12 m [facility], were you homeless or living [...] C Screening 1956 UKY-/Child/Adol SDOH Screenings 1956 [id number] Vaccine (#1) 1961 UKY-DTaP,Tdap,and Td Vaccine s [...] this topic Medical Devices Implanted Type Area Maritime Pilot Device Identifier Shelf Expiration Date Model / Serial / Lot Stent Stent Heart Description:Two heart stents in right side Stent Stent Neck Stent Bonastent Tracheal/Bronch ial [id number] - [id number] Implanted:Qty: 1 on 01/21/2024 by Cesar Irving MD at [facility] [employer]-[id number] 09/09/2026 [id number] / / [id number] Procedures Procedure Name Priority Date/Time Associated Diagnosis Comments HEMOGLOBIN A1C Routine 01/15/2024 1:06 AM EST from Last 3 Months or Most Recently Relevant to Health Maintenance Results * (ABNORMAL) Hemoglobin A1c (01/15/2024 1:06 AM EST) Hemoglobin A1c 5.9(H) <5.7 % 01/15/2024 2:59 AM EST [facility] Blood Arterial blood specimen / Unknown Venipuncture / Unknown 01/15/2024 1:06 AM EST 01/15/2024 1:12 AM EST Narrative [facility] - 01/15/2024 2:59 AM EST HA1C Interpretive Data: Diagnosis of Diabetes: Diabetic > or = 6.5% Pre-diabetic 5.7 to 6.4% Non-diabetic < or = 5.6% Glycemic Targets for Type I and Type II Diabetics: Non- Adults <7.0% Adults <6.0% Children and Adolescents <7.5% Source: [place] [employer]. Standards of medical care in diabetes,2017. Diabetes Care.2017:40 (suppl 1):S1-S135. HbA1c assay performed by an ion-exchange chromatography method that is certified traceable to the DCCT. Orlando Oseguera DO LAB BLOOD ORDERABLES Final Result Performing Organization Address City/State/[facility] de Phone Number [facility] [address] [place] [address] from Last 3 Months or Most Recently Relevant to Health Maintenance Insurance HOA Advance Directives * Full Code (Latest Code Status on File) Date Activated Date Inactivated Comments 01/18/2024 5:01 PM 01/26/2024 8:47 PM Question Answer Comments Patient has decision-making capacity? No Healthcare Surrogate: Adult child of the patient Care Teams Exerciser Relationship Specialty Start Date End Date Mk Reagan MD [address] [place] [address] PCP - General Internal Medicine 01/15/24 Hossein Greer MD [address] [facility] [address] [place] [address] Consulting Physician Radiation Oncology 02/01/24
--- OUTSIDE RECORDS SUMMARY | 2024-10-04 10:15 | XMS_ITS | Encounter Summary ---
Author Organization [facility] Address [address] [place] [address] Care Team Providers Care Flight Purser Name Role Phone Mk Reagan MD Primary Care Provider [phone] Kehinde Greer MD Unavailable [phone] Encounter Details Date Type Department Care Team (Late st Contact Info) Description 01/18/2024 Lab Requisition [facility] [address] [place] [address] Mu Carrillo MD [address] [facility] [address] [place] [address] Encounter for general adult medical [...] and Family Not on file 01/15/2024 Attends [employer] Services Not on file 01/14 Active Member [...] any time in the past 12 m [facility], were you homeless or living in a fdc (including now)? No 01/15/2024 Utilities Answer Date [...] at day 1 01/19/2024 8:51 AM EST [facility] Swab (Nares and Tiffany Rectal) 01/18/2024 8:00 AM EST 01/18/2024 11:29 AM EST us Mu Carrillo MD LAB MICROBIOLOGY - GEN ERAL ORDERABLES Final Result [facility] [address] [place] [address] documented in this encounter Visit Diagnoses Diagnosis Encounter for general adult medical examination without abnormal findings documented in this encounter Additional Health Concerns Assessment Noted Time A Body Mass Index follow-up plan has been documented for the patient 01/26/2024 5:13 PM EST documented as of this encounter Care Teams Flight Purser Relationship Specialty Start Date End Date Mk Reagan MD [address] [place] [address] PCP - General Internal Medicine 01/15/24 Kehinde Greer MD [address] [facility] [address] [place] [address] Consulting Physician Radiation Oncology 02/01/24 documented as of this encounter
--- OUTSIDE RECORDS SUMMARY | 2024-10-04 10:15 | XMS_ITS ---
Author Organization [facility] Address [address] [place] [address] Care Team Providers Care Ski Tow Operator Name Role Phone Mk Reagan MD Primary Care Provider [phone] Kehinde Greer MD Unavailable [phone] Active Problems Problem Noted Date Diagnosed Date [...]
--- NOTE | 2024-10-04 13:02 | PC.NURSE ---
1015 Patient here for labs only. Labs collected via venipuncture to L AC x1 stick with butterfly needle. Patient tolerated well.
== END 2024-10-04 10:25 | disposition home or self-care (01) ==
LOC: INF 10:05
PROVIDERS: PCP Internal Medicine Adolescent Medicine; Visit Provider Internal Medicine Medical Oncology
DX: D64.9 Anemia, unspecified (principal)
CPT/HCPCS: 36415; 82024; 82533

== ENCOUNTER 2024-10-14 19:02 | Inpatient (IN) | payer BC, OTHER, SELFPAY ==
[2024-10-14] VITALS (19 sets, daily range): BP systolic 95–139; BP diastolic 50–76; PULSE 89–173; RESP 12–36; TEMP 36.6–37.2; O2SAT 92–98; BMI 16.2; BMI 15.5
--- OUTSIDE RECORDS SUMMARY | 2024-10-14 19:12 | XMS_ITS ---
Author Organization [facility] Address [address] [place] [address] Care Team Providers Care Patient Centered Care Specialist Name Role Phone Mk Reagan MD Primary Care Provider [phone] Kehinde Greer MD Unavailable [phone] Active Problems Problem Noted Date Diagnosed Date [...]
--- OUTSIDE RECORDS SUMMARY | 2024-10-14 19:12 | XMS_ITS | Clinical Summary ---
Author Organization [facility] Address [address] [place] [address] Care Team Providers Care Customer Experience Intern Name Role Phone Mk Reagan MD Primary Care Provider [phone] Hossein Greer MD Unavailable [phone] Allergies Active Allergy Reactions Criticality Noted Date [...] and Family Not on file 01/15/2024 Attends Jewish Services Not on file 01/14 Active Member [...] were you homeless or living in a senior care (including now)? No 01/15/2024 Utilities Answer Date [...] C Screening 1956 UKY-/Child/Adol SDOH Screenings 1955 [id number] Vaccine (#1) 1961 UKY-DTaP,Tdap,and Td Vaccine s [...] this topic Medical Devices Implanted Type Area Elevator Repairer Helper Device Identifier Shelf Expiration Date Model / Serial / Lot Stent Stent Heart Description:Two heart stents in right side Stent Stent Neck Stent Bonastent Tracheal/Bronch ial [id number] - [id number] Implanted:Qty: 1 on 01/21/2024 by Cesar Irving MD at [facility] [employer]-[id number] 09/09/2026 [id number] / / [id number] Procedures Procedure Name Priority Date/Time Associated Diagnosis Comments HEMOGLOBIN A1C Routine 01/15/2024 1:06 AM EST from Last 3 Months or Most Recently Relevant to Health Maintenance Results * (ABNORMAL) Hemoglobin A1c (01/15/2024 1:06 AM EST) Hemoglobin A1c 5.9(H) <5.7 % 01/15/2024 2:[address] [facility] Blood Arterial blood specimen / Unknown Venipuncture / Unknown 01/15/2024 1:06 AM EST 01/15/2024 1:[address] [facility] - 01/15/2024 2:59 AM EST HA1C Interpretive Data: Diagnosis of Diabetes: Diabetic > or = 6.5% Pre-diabetic 5.7 to 6.4% Non-diabetic < or = 5.6% Glycemic Targets for Type I and Type II Diabetics: Non- Adults <7.0% Adults <6.0% Children and Adolescents <7.5% Source: [place] Diabetes Association. Standards of medical care in diabetes,2017. Diabetes Care.2017:40 (suppl 1):S1-S135. HbA1c assay performed by an ion-exchange chromatography method that is certified traceable to the DCCT. Orlando Oseguera DO LAB BLOOD ORDERABLES Final Result Performing Organization Address City/State/[facility] de Phone Number [facility] [address] [place] [address] from Last 3 Months or Most Recently Relevant to Health Maintenance Insurance HOA Advance Directives * Full Code (Latest Code Status on File) Date Activated Date Inactivated Comments 01/18/2024 5:01 PM 01/26/2024 8:47 PM Question Answer Comments Patient has decision-making capacity? No Healthcare Surrogate: Adult child of the patient Care Teams Customer Experience Intern Relationship Specialty Start Date End Date Mk Reagan MD [address] [place] [address] PCP - General Internal Medicine 01/15/24 Hossein Greer MD [address] [facility] [address] [place] [address] Consulting Physician Radiation Oncology 02/01/24
--- OUTSIDE RECORDS SUMMARY | 2024-10-14 19:12 | XMS_ITS | Encounter Summary ---
Author Organization Healthcare Address [address] [place] [address] Care Team Providers Care Art Historian Name Role Phone Mk Reagan MD Primary Care Provider [phone] Kehinde Greer MD Unavailable [phone] Encounter Details Date Type Department Care Team (Late st Contact Info) Description 01/18/2024 Lab Requisition [facility] [address] [place] [address] Mu Carrillo MD [address] [facility] [address] [place] [address] Encounter for general adult medical [...] and Family Not on file 01/15/2024 Attends Jain Services Not on file 01/14 Active Member [...] any time in the past 12 m [facility], were you homeless or living in a assisted (including now)? No 01/15/2024 Utilities Answer Date [...] at day 1 01/19/2024 8:51 AM EST [facility] Swab (Nares and Tiffany Rectal) 01/18/2024 8:00 AM EST 01/18/2024 11:29 AM EST us Mu Carrillo MD LAB MICROBIOLOGY - GEN ERAL ORDERABLES Final Result [facility] [address] [place] [address] documented in this encounter Visit Diagnoses Diagnosis Encounter for general adult medical examination without abnormal findings documented in this encounter Additional Health Concerns Assessment Noted Time A Body Mass Index follow-up plan has been documented for the patient 01/26/2024 5:13 PM EST documented as of this encounter Care Teams Art Historian Relationship Specialty Start Date End Date Mk Reagan MD [address] [place] [address] PCP - General Internal Medicine 01/15/24 Kehinde Greer MD [address] [facility] [address] [place] [address] Consulting Physician Radiation Oncology 02/01/24 documented as of this encounter
--- OUTSIDE RECORDS SUMMARY | 2024-10-14 19:12 | XMS_ITS | Encounter Summary ---
Author Organization Healthcare Address [address] [place] [address] Care Team Providers Care Director Instructional Material Name Role Phone Mk Reagan MD Primary Care Provider [phone] Kehinde Greer MD Unavailable [phone] Encounter Details Date Type Department Care Team (Late st Contact Info) Description 01/19/2024 Lab Requisition [facility] [address] [place] [address] Mu Carrillo MD [address] [facility] [address] [place] [address] Encounter for general adult medical [...] any time in the past 12 m [facility], were you homeless or living [...] at day 1 01/20/2024 4:06 AM EST [facility] Swab (Nares and Tiffany Rectal) 01/19/2024 6:00 AM EST 01/19/2024 7:21 AM EST us Mu Carrillo MD LAB MICROBIOLOGY - GEN ERAL ORDERABLES Final Result [facility] [address] [place] [address] documented in this encounter Visit Diagnoses Diagnosis Encounter for general adult medical examination without abnormal findings documented in this encounter Additional Health Concerns Assessment Noted Time A Body Mass Index follow-up plan has been documented for the patient 01/26/2024 5:13 PM EST documented as of this encounter Care Teams Director Instructional Material Relationship Specialty Start Date End Date Mk Reagan MD [address] [place] [address] PCP - General Internal Medicine 01/15/24 Kehinde Greer MD [address] [facility] [address] [place] [address] Consulting Physician Radiation Oncology 02/01/24 documented as of this encounter
--- NOTE | 2024-10-14 19:13 | ECG_ITS ---
APPROVED REPORT Exam: Resting ECG HR:162 bpm ECG Measurements Heart Rate 162 AXES QRSd 102 QRS -77 QT 267 T 108 QTc 357 Conclusion ATRIAL FIBRILLATION WITH RAPID VENTRICULAR RESPONSE POSSIBLE ANTERIOR MYOCARDIAL INFARCTION , PROBABLY OLD [30 ms Q WAVE IN V3/V4, OR R < 0.2 mV IN V4] INFERIOR MYOCARDIAL INFARCTION , OF INDETERMINATE AGE [40+ ms Q WAVE AND/OR ST/T ABNORMALITY IN II/aVF] CRITICAL TEST RESULT UNCONFIRMED REPORT Electronically signed by : Yariel Vallecillo, 10/14/2024 22:37:43
--- NOTE | 2024-10-14 19:43 | CT_ITS ---
PROCEDURE INFORMATION: Exam: CTA Chest With Contrast Exam date and time: 10/14/2024 8:32 PM Age: 68 years old Clinical indication: Dyspnea; Additional info: Dyspnea, h/o lung CA TECHNIQUE: Imaging protocol: Computed tomographic angiography of the chest with contrast. Exam focused on the arteries. 3D rendering (Not supervised by radiologist): MIP and/or 3D reconstructed images were created by the technologist. Radiation optimization: All CT scans at this facility use at least one of these dose optimization techniques: automated exposure control; mA and/or kV adjustment per patient size (includes targeted exams where dose is matched to clinical indication); or iterative reconstruction. Contrast material: ISOVUE; Contrast volume: 80 ml; Contrast route: INTRAVENOUS (IV); COMPARISON: CT ANGIO CHEST PE PROTOCOL 07/09/2024 2:30 PM FINDINGS: Pulmonary arteries: No central or segmental pulmonary arterial intraluminal filling defects identified. Aorta: Atherosclerotic calcification of aorta without aneurysm or obvious dissection. Lungs: Modestly decreased, poorly defined opacities of right anterior upper/middle lobe and both lower lobes. Persistent primarily right sided bronchovascular nodularity. Underlying emphysematous changes throughout both lungs. Pleural spaces: Tiny to small right complex pleural effusion. No pneumothorax. Heart: Unremarkable. No cardiomegaly. No pericardial effusion. Lymph nodes: Unremarkable. No enlarged lymph nodes. Bones/joints: Unremarkable. No acute fracture. Soft tissues: Unremarkable. IMPRESSION: 1. No central or segmental pulmonary arterial embolism identified. 2. Modestly decreased but persistent opacities in both lungs, right worse than left. In addition to probable infectious/inflammatory etiology, with persistent right sided bronchovascular nodularity, can not exclude waxing/waning bronchovascular lymphangitic carcinomatosis. 3. Right pleural effusion. COMMENTS: The presence of pulmonary emphysema on CT is an independent risk factor for lung cancer. In the absence of a history or active diagnosis of lung cancer, it is recommended that this patient with emphysema be evaluated for enrollment in a low dose CT lung cancer screening program.
--- NOTE | 2024-10-14 19:45 | ED_ITS ---
Discharge Plan Disposition Patient Disposition: Admitted Prescriptions Prescriptions: No Action Eliquis 5 mg tablet 5 mg PO BID Patient Comments: TAKE TWO TABLETS BY MOUTH TWICE DAILY FOR 7 DAYS THEN TAKE ONE TABLET BY MOUTH TWICE DAILY THEREAFTER oxycodone 10 mg tablet 10 mg PO Q8H PRN (Reason: pain) Qty: 90 0RF levothyroxine [Synthroid] 100 mcg tablet 100 mcg PO DAILY Qty: 30 11RF promethazine 25 mg suppository 25 mg NH Q6H PRN (Reason: nausea and vomiting) Qty: 24 2RF umeclidinium-vilanterol [Anoro Ellipta] 62.5-25 mcg/actuation Blister With Device 1 inh inhalation DAILY 30 Days Qty: 60 0RF trazodone 50 mg tablet 25 mg PO HSP PRN (Reason: Sleep) Patient Comments: TAKE 1/2 (ONE-HALF) TABLET BY MOUTH AT BEDTIME NEEDED FOR INSOMNIA polyethylene glycol 3350 [HealthyLax] 17 gram Powder In Packet 17 g PO DAILY 30 Days Qty: 30 0RF pantoprazole 40 mg Tablet,Delayed Release (Dr/Ec) 40 mg PO HS 30 Days Qty: 30 0RF sennosides-docusate sodium [Stimulant Laxative Plus] 8.6-50 mg Tablet 1 tab-cap PO BID PRN (Reason: constipation) Qty: 60 0RF carvedilol 6.25 mg Tablet 6.25 mg PO BID 30 Days Qty: 60 0RF Referrals Follow up/Referrals: Mk Reagan MD [Primary Care Provider, Internal Medicine] - See instructions Clinical Impressions Clinical Impression: Atrial fibrillation with rapid ventricular response, Asthma exacerbation in COPD, Lung cancer, CAP (community acquired pneumonia) Print Language Print Language: Indonesian Discharge ED Provider: Dae Vallecillo General Adult HPI General Chief complaint: Shortness of Breath/Dyspnea Stated complaint: Low O2 sats,Low heart rate Time Seen by Provider: 10/14/24 19:20 Mode of Arrival: Wheelchair Source of Information: Patient and Relative Description of Symptoms (Recalled from ER Triage Doc. by RN): PT presents to the ED for evaluation of SOB, Low HR. PT noted to have A hr OF 173hr, 91 o2 ON 8l NC. History of Present Illness HPI narrative: Patient is a 68-year-old with a history of COPD lung cancer and intermittently with atrial fibrillation secondary typically to sepsis who presents today with evaluation of shortness of breath and generalized weakness. Her pulse at home was in the 30s according to family. Family states she has had increased cough wheezing shortness of breath but a lot of that is chronic but it is little bit worse than normal. She states that she is not on anticoagulants however documented medication list states that she is on apixaban so this is unclear. Related Data Home Medications ?Medication ?Instructions ?Recorded ?Confirmed apixaban 5 mg tablet (Eliquis) 5 mg PO BID 08/02/24 trazodone 50 mg tablet 25 mg PO HSP PRN Sleep 08/0909/20/24 Previous Rx's ?Medication ?Instructions ?Recorded umeclidinium 62.5 mcg-vilanterol 1 inh inhalation CARINA Y 30 days #60 07/11/24 25 mcg/actuation powdr for ea inhalation (Anoro Ellipta) promethazine 25 mg rectal 25 mg NH Q6H PRN nausea and 08/08/24 suppository vomiting #24 ea carvedilol 6.25 mg tablet 6.25 mg PO BID 30 days #60 t abs 08/11/24 pantoprazole 40 mg tablet,delayed 40 mg PO HS 30 days #30 tabs 08/11/24 release polyethylene glycol 3350 17 gram 17 g PO DAILY 30 days #30 ea 08/11/24 oral powder packet (HealthyLax) sennosides 8.6 mg-docusate sodium 1 tab-cap PO BID PRN constipation 08/11/24 50 mg tablet (Stimulant Laxative #60 tabs Plus) levothyroxine 100 mcg tablet 100 mcg PO DAILY #30 tabs 09/20/24 (Synthroid) oxycodone 10 mg tablet 10 mg PO Q8H PRN pain #90 ta bs 09/20/24 Allergies Allergy/AdvReac Type Severity Reaction Status Date / Time diazepam AdvReac Severe Vomiting Verified 09/20/24 12:59 aspirin AdvReac Other Verified 09/20/24 12:59 PFSH PFSH Disclaimer: The information contained in this section may have been updated after the patient was seen, as this information can be updated by other users. Medical History Acute pulmonary embolism Bilateral pneumonia Dizziness Crescendo angina Headache Right middle lobe pneumonia Acute exacerbation of chronic obstructive pulmonary disease GI bleed Sepsis Acute on chronic HFrEF (heart failure with reduced ejection fraction) Iron deficiency anemia Abnormal cardiovascular stress test Paroxysmal atrial fibrillation Lung collapse Angina pectoris Acute and chronic respiratory failure with hypoxia Atrial fibrillation with RVR Primary lung cancer Acute hypoxemic respiratory failure Lung cancer Orthopnea Hemoptysis Smoking greater than 30 pack years Pulmonary emphysema History of lung cancer in adulthood Hilar lymphadenopathy Nodule of right lung Stenosis of carotid artery Cancer Migraine Heart attack NSCLC of left lung Anxiety Tooth abscess Antibiotics and diflucan for vaginitis from antibiotics. F/U with Dr Sherwood Surgical History History of bladder surgery History of heart artery stent History of hysterectomy Family History Other Cancer Heart attack Hypertension Stroke Social History Smoking Status: Current every day smoker tobacco type: cigarettes packs per day: 1 alcohol intake: never substance use type: denies use current occupational status: other Travel in the last 8 weeks?: None Have you lived/traveled outside [place] in past 30 days?: No Contact w/someone who lives/traveled outside [place] past 30 days?: No Exposure to someone with infectious disease in past 14 days?: No Do you have a fever (greater than 100.4 F or 38 C)?: No Have you tested positive for COVID-19?: No Exposed to someone with COVID-19 in past 14 days?: No Do you have a sore throat?: No Do you have a cough?: No Do you have any weakness?: No Do you have any diarrhea?: No Are you experiencing any unusual bleeding?: No Do you have any muscle aches/pain?: No Do you have any abdominal pain?: No Are you experiencing loss of taste or smell?: No Other Medical History Have you received the Flu Vaccine for this season: No Have you received the Pneumonia Vaccine: No ROS Obtained: Yes All systems reviewed & no additional complaints except as documented Physical Exam General General appearance: cachectic Respiratory Respiratory exam: Absent normal lung sounds bilaterally (Diminished breath sounds on the right base) or respiratory distress Cardiovascular Cardiovascular exam: Present tachycardia and irregular rhythm Neurological Exam Neurological exam: Present alert and oriented X3 Medical Decision Making Medical Records Screening: Per USPSTF and CDC recommendations, given the prevalence of disease in our region, it is our hospital?s policy to screen for HIV and viral Hepatitis for all patients aged 18 and over and those with ongoing risk factors. Shin Inquiry Pt receiving controlled substance: No Vital Signs: 10/14/24 19:22 10/14/24 19:28 Temperature 98.9 F Temperature Source Oral Pulse Rate [Right] 173 H Respiratory Rate 17 Blood Pressure [Right Arm] 113/68 Blood Pressure Mean [Right Arm] 83 02 Sat by Pulse Oximetry 98 93 L Oxygen Delivery Method Nasal Cannula Oxygen Flow Rate (LPM) 3 Lab Data Lab results reviewed: Yes I reviewed the patient's lab results. Lab Results 10/14/24 19:10: Sodium 132 L, Potassium 4.8, Chloride 88 L, Carbon Dioxide 29, A nion Gap 19.8 H, BUN 11, Creatinine 0.70, Estimated Creat Clear 32, Estimated GFR 83, Est GFR ( Amer) 101, Glucose 176 H, Calcium 9.4, Total Bilirubin 0.7, AST 27, ALT 14, Alkaline Phosphatase 135 H, Troponin I < 0.01, NT-Pro-B Natriuret Pep 1930 H, Total Protein 8.1, Albumin 3.9, Globulin 4.2 H, A lbumin/Globulin Ratio 0.9 L 10/14/24 19:51: SARS-CoV-2 (PCR) Not detected, Influenza A Untype (PCR) Not detected, Influenza Type B (PCR) Not detected 10/14/24 19:56: WBC 20.1 H*, RBC 3.77 L, Hgb 9.9 L, Hct 30.8 L, MCV 81.7, MCH 26.3 L, MCHC 32.1, RDW 15.6, Plt Count 661 H, MPV 9.1, Neut % (Auto) 91.2 H, L ymph % (Auto) 1.6 L, [place] % (Auto) 6.0, Eos % (Auto) 0.0 L, Baso % (Auto) 0.2, N eut # (Auto) 18.3 H, Lymph # (Auto) 0.3 L, [place] # (Auto) 1.2 H, Eos # (Auto) 0.0, Baso # (Auto) 0.1, Total Counted 100, Neutrophils % (Manual) 90 H, L ymphocytes % (Manual) 5 L, Monocytes % (Manual) 5, Platelet Estimate Moderate increase, RBC Morphology Normal, VBG pH 7.43 H, VBG pCO2 48.4, VBG pO2 152.7 H, VBG HCO3 31.6 H, VBG Total CO2 33.1 H, VBG O2 Saturation 99.1 H, VBG Base Excess 7.4 H, VBG Lactic Acid 1.2 10/14/24 19:56 10/14/24 19:10 Orders (Tests/Meds): ED MEDICATIONS Generic Name Dose Route Start Last Admin Trade Name Freq PRN Reason Stop Dose Admin Hydromorphone HCl 0.5 mg 10/14/24 21:00 Hydromorphone 2mg/Ml Syringe IV 10/14/24 21:01 ONCE ONE Diltiazem HCl 100 mg/ Sodium 100 mls @ 5 mls/hr 10/14/24 20:00 10/14/24 20:58 Chloride IV 11/13/24 19:59 15 mg/hr .Q20H CY 15 mls/hr Protocol Titration 5 MG/HR Ceftriaxone Sodium 2 gm/ 100 mls @ 200 mls/hr 10/14/24 20:48 10/14/24 20:59 Sodium Chloride IV 10/14/24 21:17 200 mls/hr ONCE ONE Administration Discontinued Medications Generic Name Dose Route Start Last Admin Trade Name Freq PRN Reason Stop Dose Admin Albuterol/Ipratropium 3 ml 10/14/24 19:41 10/14/24 19:57 Ipratropium/Albuterol 3 Ml Neb IH 10/14/24 19:42 3 ml ONCE ONE Administration Diltiazem HCl 10 mg 10/14/24 19:41 10/14/24 20:14 Diltiazem 25mg/5ml Vial IV 10/14/24 19:42 10 mg ONCE ONE Administration Sodium Chloride 500 mls @ 999 mls/hr 10/14/24 19:41 10/14/24 20:03 Sod Chlor 0.9% 1000ml Bag IV 10/14/24 20:11 999 mls/hr .Q31M ONE Administration Magnesium Sulfate 2 gm in 50 mls @ 50 mls/hr 10/14/24 19:41 10/14/24 20:05 Magnesium Sulfate 2gm/50ml Premix IV 10/14/24 20:40 50 mls/hr ONCE ONE Administration Azithromycin 500 mg/ Sodium 250 mls @ 250 mls/hr 10/14/24 20:48 Chloride IV 10/14/24 20:49 ONCE ONE Iopamidol 80 ml 10/14/24 20:32 10/14/24 20:33 Iopamidol-370 (76%);100ml Bottle IV 10/14/24 20:33 80 ml ONCE ONE Administration Methylprednisolone Sodium Succinate 125 mg 10/14/24 19:41 10/14/24 19:57 Methylprednisolone Sod Succ 125mg Vial IV 10/14/24 19:42 125 mg ONCE ONE Administration Sodium Chloride 50 ml 10/14/24 20:32 10/14/24 20:33 0.9 % Sodium Chloride 50 Ml Vial IV 10/14/24 20:33 50 ml ONCE ONE Administration Sodium Chloride 10 ml 10/14/24 20:32 10/14/24 20:33 Sodium Chloride 0.9% 10ml Syr (Rad Only) IV 10/14/24 20:33 10 ml ONCE ONE Administration ORDERS Category Date Time Status CT angio chest PE protocol Stat Cat Scan 10/14/24 19:43 Taken BNP [NT Pro Brain Natriuretic Pep.] Stat Lab 10/14/24 19:10 Completed CBC w/Auto Diff [Complete Blood Count Auto Diff] Stat Lab 10/14/24 19:56 Completed CMP [Comprehensive Metabolic Panel] Stat Lab 10/14/24 19:10 Completed Lactate Venous Stat Lab 10/14/24 20:20 Ordered Rapid PCR Covid and Flu A/B Stat Lab 10/14/24 19:51 Completed Trop I [Troponin I] Stat Lab 10/14/24 19:10 Completed Troponin I Q3H Lab 10/14/24 22:45 Ordered Troponin I Q3H Lab 10/15/24 01:45 Ordered Blood Culture Stat Micro 10/14/24 20:02 Received Venous Blood Gas Stat RT 10/14/24 19:56 Completed Tissue Perfus/Sepsis Re-Eval Sepsis Re-Evaluation Performed: Yes Date Performed: 10/14/24 Time Performed: 21:06 Medical Decision Narrative: Patient is a severely cachectic 68-year-old female presenting today in A-fib RVR. Her perfused rhythm intermittently was significantly less than her ventricular rhythm which is likely what her family thought was bradycardia prior to arrival. She has generalized weakness has a known history of lung cancer and was scheduled for a scan shortly. Will go ahead and get a CT PE today to both evaluate for the status of her cancer but also to look for pulmonary embolism pneumonia etc. Will start her on diltiazem bolus and infusion in addition to treatment of her COPD. EKG was performed which I personally interpreted which shows a ventricular rate of [address] changes to suggest acute ischemia this is consistent with atrial fibrillation with rapid ventricular response will reassess after this initial workup is complete. Reassessment 9:06 PM patient is much improved. She was started on a diltiazem bolus and drip. She met sepsis/SIRS criteria with endorgan damage and meets a diagnosis of severe sepsis with a source of her lungs. CT scan of her chest was performed which I personally interpreted I do not see an obvious pulmonary embolism but she does have increasing infiltrates in comparison with old CT scans which looks consistent with pneumonia versus worsening of her malignancy. Will treat her with Rocephin azithromycin. She has been given a bolus of fluids but will not give 30 cc/kg bolus given the fact that her maps have been persistently above 65 and she is very frail and do not want to volume overload her. Serial perfusion exams are significantly improved. Pain medicine has been administered for her chronic pain. I had an extensive discussion with her regarding end-of-life care as she is only 37 kg has severe end-stage COPD cancer and continues to be hospitalized for this and she states that she very much wants to have a conversation with palliative care/hospice tomorrow in the hospital. This was communicated with Dr. Torres and she was ultimately admitted to hospital medicine for further evaluation and management. Critical Care Critical Care Time Critical Care Time: Yes Attestation: On 10/14/24, the high probability of a clinically significant, sudden or life threatening deterioration of the following system(s) required my full and direct attention, intervention and personal management. The time I documented below is in addition to time spent performing reported procedures but includes the following listed in this critical care notation. Total Time Total Critical Care Time: 35
--- NOTE | 2024-10-14 19:49 | PC.NURSE ---
Respiratory contacted r/t [facility]
[2024-10-14 19:54] LABS: Albumin Level 3.9 g/dl (3.5-5.0); Chloride 88 mmol/L (98-107); Potassium 4.8 mmoL/L (3.5-5.1); Sodium 132 mmol/L (136-145)
[2024-10-14 19:54] LABS: Coronavirus 19, PCR Not Detected (NotDetected); Influenza A, PCR Not Detected (NotDetected); Influenza B, PCR Not Detected (NotDetected)
[2024-10-14 19:57] LABS: Alanine Aminotransferase 14 U/L (12-78); Albumin/Globulin Ratio 0.9 (1.1-1.8); Alkaline Phosphatase 135 U/L (38-126); Anion Gap 19.8 mEq/L (5-15); Aspartate Amino Transferase 27 U/L (14-36); Bilirubin,Total 0.7 mg/dl (0.2-1.3); Blood Urea Nitrogen 11 mg/dl (7-17); Calcium 9.4 mg/dl (8.4-10.2); Carbon Dioxide 29 mmol/L (22.0-30.0); Creatinine Clearance Estimated 32 mL/min (50-200); Creatinine,Serum 0.70 mg/dl (0.52-1.04); Estimated Glomerular Filt Rate 83 ml/min (>60); GFR (African American) 101 ML/MIN (>60); Globulin 4.2 g/dL (1.3-3.2); Glucose 176 mg/dl (74-100); Total Protein,Serum 8.1 g/dl (6.3-8.2)
[2024-10-14] MEDS: IPRATROPIUM/ALBUTEROL 3 ML NEB IH (19:57)
[2024-10-14] MEDS: METHYLPREDNISOLONE SOD SUCC 125MG VIAL 125 MG IV (19:57)
[2024-10-14 20:02] LABS: Lactate Venous 1.2 mmol/L (0.4-2.0); VBG HCO3 31.6 mmol/L (23-30); VBG PCO2 48.4 mmol/L (35-51); VBG PH 7.43 mmol/L (7.31-7.41); VBG PO2 152.7 mmol/L (28-40)
[2024-10-14 20:03] LABS: Hematocrit 30.8 % (37.0-47.0); Hemoglobin 9.9 g/dL (12.2-16.2); Immature Granulocytes % 1.0 %; Mean Corpuscular HGB Conc 32.1 g/dL (31.8-35.4); Mean Corpuscular Hemoglobin 26.3 pg (27.0-31.2); Mean Corpuscular Volume 81.7 fl (81-99); Nucleated Red Blood Cells % 0 %; Platelet Count 661 K/mm3 (142-424); Red Blood Count 3.77 M/mm3 (4.20-5.40); Red Cell Distribution Width-SD 46.7 fL; White Blood Count 20.1 K/mm3 (4.8-10.8)
[2024-10-14] MEDS: 0.9 % SODIUM CHLORIDE 1000ML 500 ML 999 ML IV (20:03)
[2024-10-14] MEDS: MAGNESIUM SULFATE IN WATER 2 GM/50 ML PIGGYBACK IV (20:05)
[2024-10-14 20:07] LABS: NT Pro Brain Natriuretic Pep. 1930 pg/mL (0-125)
[2024-10-14 20:10] LABS: Troponin I < 0.01 ng/ml (0.00-0.034)
[2024-10-14 20:27] LABS: RBC Morphology Normal; Total Cells Counted 100
[2024-10-14] MEDS: IOPAMIDOL-370 (76%);100ML BOTTLE 80 ML IV (20:33)
[2024-10-14] MEDS: SODIUM CHLORIDE 0.9% 10ML SYR (RAD ONLY) 10 ML IV (20:33)
[2024-10-14] MEDS: 0.9 % SODIUM CHLORIDE 50 ML VIAL IV (20:33)
--- NOTE | 2024-10-14 21:06 | PC.NURSE ---
Contacted House r/t admit.
--- NOTE | 2024-10-14 21:22 | PC.NURSE ---
Report called to [facility]
--- NOTE | 2024-10-14 21:25 | P.HP_ITS ---
History of Present Illness *Admission Date: 10/14/24 *Reason for visit:: Shortness of air *History of present illness: This is a 68-year-old female who presents to [facility] emergency department with concerns of shortness of air over the last couple days not improving with home care. Her medical history is significant for stage III high-grade poorly differentiated lung carcinoma. She also has end-stage COPD with ongoing tobacco dependence. She is currently immunocompromised with her Keytruda therapy. In the ED she was identified with atrial fibrillation with RVR and met sepsis criteria. She received IV calcium channel mohan therapy, IV antibiotics and her care was transitioned to hospital medicine for ICU care. Currently she reports no fever, no chills and that she is feeling better. She denies associated retrosternal chest pain, confusion or pain with inspiration. She reports that her dyspnea has improved. [facility] Medical History (Updated 10/15/24 @ 00:00 by Errol Dent MD) Sepsis Tobacco dependence Chronic, continuous use of opioids Hypothyroidism Acute pulmonary embolism Bilateral pneumonia Dizziness Crescendo angina Headache Right middle lobe pneumonia Acute exacerbation of chronic obstructive pulmonary disease GI bleed Acute on chronic HFrEF (heart failure with reduced ejection fraction) Iron deficiency anemia Abnormal cardiovascular stress test Paroxysmal atrial fibrillation Lung collapse Angina pectoris Atrial fibrillation with RVR Primary lung cancer Acute hypoxemic respiratory failure Lung cancer Orthopnea Hemoptysis Smoking greater than 30 pack years Pulmonary emphysema History of lung cancer in adulthood Hilar lymphadenopathy Nodule of right lung Stenosis of carotid artery Cancer Migraine Heart attack NSCLC of left lung Anxiety Tooth abscess Surgical History History of bladder surgery History of heart artery stent History of hysterectomy Family History Other Cancer Heart attack Hypertension Stroke Social History Smoking Status: Current every day smoker tobacco type: cigarettes packs per day: 1 alcohol intake: never substance use type: denies use current occupational status: other Travel in the last 8 weeks?: None Other Medical History Have you received the Flu Vaccine for this season: No Have you received the Pneumonia Vaccine: No Review of Systems Review of Systems Review of systems:: pertinent systems reviewed and negative unless documented below Meds Home Medications and Allergies Home Medications ?Medication ?Instructions ?Recorded ?Confirmed ?Type pantoprazole 40 mg tablet,delayed 40 mg PO HS 30 days #30 tabs 08/11/24 09/20/24 Rx release levothyroxine 100 mcg tablet 100 mcg PO DAILY #30 tabs 09/20/24 09/20/24 Rx (Synthroid) oxycodone 10 mg tablet 10 mg PO Q8H PRN pain #90 ta bs 09/20/24 09/20/24 Rx New Prescriptions to Start Prescriptions: Allergies Allergy/AdvReac Type Severity Reaction Status Date / Time diazepam AdvReac Severe Vomiting Verified 10/14/24 23:13 aspirin AdvReac Other Verified 10/14/24 23:13 Exam Data for Last 24 hours Vital signs and Labs for Last 24 Hours: Temp Pulse Resp BP Pulse Ox O2 Del Method O2 Flow Rate 98.9 F 173 H 17 113/68 93 L Nasal Cannula 3 10/14/24 19:22 10/14/24 19:22 10/14/24 19:22 10/14/24 19:22 10/14/24 19:28 10/14/24 19:28 10/14/24 19:28 Laboratory Results - last 24 hr 10/14/24 19:10: Sodium 132 L, Potassium 4.8, Chloride 88 L, Carbon Dioxide 29, Anion Gap 19.8 H, BUN 11, Creatinine 0.70, Estimated Creat Clear 32, Estimated GFR 83, Est GFR ( Amer) 101, Glucose 176 H, Calcium 9.4, Total Bilirubin 0.7, AST 27, ALT 14, Alkaline Phosphatase 135 H, Troponin I < 0.01, NT-Pro-B Natriuret Pep 1930 H, Total Protein 8.1, Albumin 3.9, Globulin 4.2 H, Albumin/Globulin Ratio 0.9 L 10/14/24 19:51: SARS-CoV-2 (PCR) Not detected, Influenza A Untype (PCR) Not detected, Influenza Type B (PCR) Not detected 10/14/24 19:56: WBC 20.1 H*, RBC 3.77 L, Hgb 9.9 L, Hct 30.8 L, MCV 81.7, MCH 26.3 L, MCHC 32.1, RDW 15.6, Plt Count 661 H, MPV 9.1, Neut % (Auto) 91.2 H, Lymph % (Auto) 1.6 L, [place] % (Auto) 6.0, Eos % (Auto) 0.0 L, Baso % (Auto) 0.2, Neut # (Auto) 18.3 H, Lymph # (Auto) 0.3 L, [place] # (Auto) 1.2 H, Eos # (Auto) 0.0, Baso # (Auto) 0.1, Total Counted 100, Neutrophils % (Manual) 90 H, Lymphocytes % (Manual) 5 L, Monocytes % (Manual) 5, Platelet Estimate Moderate increase, RBC Morphology Normal, VBG pH 7.43 H, VBG pCO2 48.4, VBG pO2 152.7 H, VBG HCO3 31.6 H, VBG Total CO2 33.1 H, VBG O2 Saturation 99.1 H, VBG Base Excess 7.4 H, VBG Lactic Acid 1.2 I & O for Last 24 hours: Intake & Output 10/11/24 10/12/24 10/13/24 10/14/24 23:59 23:59 23:59 23:59 Intake Total 5.167 / 5.167 Balance 5.167 / 5.167 Weight 37.648 kg *Routine HEENT Exam Head: Present normocephalic Eye: Present EOMI and PERRL ENT: Present mucous membranes moist *Routine Neck Exam Neck: Present supple and trachea midline; Absent JVD *Routine Respiratory Exam Respiratory: Present accessory muscle use, rhonchi, wheezes, distant breath sounds, diminished air movement, able to speak in complete sentences and symmetric chest movement *Routine Cardiovascular Exam Cardiovascular: Present tachycardia and irregular rhythm *Routine Abdominal Exam Abdominal: Present soft and normoactive bowel sounds; Absent tenderness or distended *Routine Rectal Exam Rectal:: deferred *Routine Genitalia Exam Genitalia:: deferred *Routine Extremities Exam Extremities: Present full ROM; Absent edema *Routine Skin Exam Skin: Present intact and wounds; Absent rash *Routine Neurological Exam Neurological: Present alert, oriented X3, moving all extremities, vision grossly intact, hearing grossly intact and normal speech; Absent sensory deficit or motor deficit Routine Psychiatric Exam Psychiatric: Present normal affect, normal thought process, cooperative, good insight and good judgment Assessment and Plan *Assessment and plan (1) Atrial fibrillation with rapid ventricular response: Status: Acute Category: Medical Code(s): I48.91 - Unspecified atrial fibrillation (2) CAD (coronary atherosclerotic disease): Status: Acute Qualifiers: Coronary Disease-Associated Artery/Lesion type: seminole artery [place] vs. transplanted heart: seminole heart Associated angina: without angina Qualified Code(s): I25.10 - Atherosclerotic heart disease of seminole coronary artery without angina pectoris Category: Medical Code(s): I25.10 - Atherosclerotic heart disease of seminole coronary artery without angina pectoris (3) Sepsis: Status: Acute Category: Medical Code(s): A41.9 - Sepsis, unspecified organism (4) Acute and chronic respiratory failure with hypoxia: Status: Acute Category: Medical Code(s): J96.21 - Acute and chronic respiratory failure with hypoxia (5) Obstructive pneumonia: Status: Acute Category: Medical Code(s): J18.9 - Pneumonia, unspecified organism (6) Pleural effusion on right: Status: Acute Category: Medical Code(s): J90 - Pleural effusion, not elsewhere classified (7) Pulmonary emphysema: Status: Acute Qualifiers: Emphysema type: centrilobular Qualified Code(s): J43.2 - Centrilobular emphysema Category: Medical Code(s): J43.9 - Emphysema, unspecified (8) Tobacco dependence: Status: Acute Category: Medical Code(s): F17.200 - Nicotine dependence, unspecified, uncomplicated (9) Iron deficiency anemia: Status: Acute Qualifiers: Iron deficiency anemia type: unspecified iron deficiency Qualified Code(s): D50.9 - Iron deficiency anemia, unspecified Category: Medical Code(s): D50.9 - Iron deficiency anemia, unspecified (10) Severe protein-calorie malnutrition: Status: Acute Category: Medical Code(s): E43 - Unspecified severe protein-calorie malnutrition (11) Wound of sacral region: Status: Acute Category: Medical Code(s): S31.000A - Unspecified open wound of lower back and pelvis without penetration into retroperitoneum, initial encounter (12) Hypothyroidism: Status: Acute Category: Medical Code(s): E03.9 - Hypothyroidism, unspecified (13) Chronic, continuous use of opioids: Status: Acute Category: Medical Code(s): F11.90 - Opioid use, unspecified, uncomplicated (14) Lung cancer: Status: Acute Category: Medical Code(s): C34.90 - Malignant neoplasm of unspecified part of unspecified bronchus or lung Plan This is a 68-year-old female with lung cancer currently on immunotherapy with stage IV COPD who presents to the ED with shortness of air. Her telemetry identified atrial fibrillation with RVR. She has identified the burden of her disease and a goals of care conversation occurred with her ED provider. I am accompanied by her nurse Chelsea in the ICU for a goals of care conversation. The patient is interested in hospice consultation. She is requesting a DNI CODE STATUS. Problems addressed as follows: Atrial fibrillation with RVR Coronary artery disease ICU care with continuous telemetry and pulse oximetry monitoring ECG withA-fib with RVR and QTc 357 MS ED troponin negative X 2 IV diltiazem therapy Aspirin allergy noted Statin therapy Beta-mohan therapy Sepsis, present on admission Tachycardia, tachypnea, leukocytosis, source identified on imaging IV fluid resuscitation with normal lactic acid Blood cultures pending Trending labs and inflammatory markers IV antibiotic therapy Acute on chronic respiratory failure with hypoxia Obstructive pneumonia Pleural effusion on right COPD exacerbation Tobacco dependence Pulse oximetry monitoring Oxygen therapy to maintain appropriate oxygen saturations Currently requiring 3-4 L via nasal cannula (home O2 requirement=2L) CTA chest: Right pleural effusion, opacities both lungs, bronchovascular nodularities Trending labs and inflammatory markers IV antibiotic therapy Danika/Ricco inhalation therapy ICS therapy P.o. prednisone therapy Tobacco cessation education Nicotine replacement therapy Iron deficiency anemia Trending CBC PPI therapy Iron replacement therapy with ascorbic acid Transfuse for hemoglobin <7 Hypothyroidism Levothyroxine replacement therapy Severe protein calorie malnutrition Weight loss over [address] consult Nutritional supplementation DTI sacrum Nutrition Offloading Wound care consult Lung cancer Immunocompromise state Chronic pain Chronically prescribed opioid therapy Naloxone therapy Poor prognosis identified Goals of care conversation Hospice consult The length of stay for this patient will be 2 midnights or greater due to above diagnoses. Total amount of critical care time spent was 35 minutes not counting procedures performed. This time included high complexity decision making to assess and treat vital organ system failure in this patient who has impairment of 1 or more vital organ systems such as there is a high probability of imminent or life-threatening deterioration of the patient's condition. Failure to initiate the above interventions on an urgent basis would likely result in sudden, clinically significant or life-threatening deterioration in the patient's condition. The patient required my highest level of preparedness to intervene emergently and I personally spent this critical care time directly and personally managing the patient. This critical care time included obtaining a history; examining the patient; frequent vital monitoring including pulse oximetry; ordering and review of studies; arranging urgent treatment with development of a management plan; evaluation of patient's response to treatment; frequent reassessment; and, discussions with other providers including ICU staff.
[2024-10-14] MEDS: HYDROMORPHONE 2MG/ML SYRINGE 0.5 MG IV (21:26)
[2024-10-14] MEDS: AZITHROMYCIN 500 MG in 0.9 % SODIUM CHLORIDE 250 ML 250 MG IV (21:33)
--- NOTE | 2024-10-14 21:52 | PC.NURSE ---
This nurse spoke to PT regarding DNR. PT stated I want it all unless im brain . This nurse educated PT of what Full Code entails. PT still agreed she prefered to be a Full Code.
--- NOTE | 2024-10-14 21:59 | PC.NURSE ---
This RN spoke with Giselle RN in SCU, explained that pt is a full-code although the Hospitialist has an order for DNR.
--- OUTSIDE RECORDS SUMMARY | 2024-10-14 23:02 | XMS_ITS | Encounter Summary ---
Author Organization Healthcare Address [address] [place] [address] Care Team Providers Care Efficiency Analyst Name Role Phone Mk Reagan MD Primary Care Provider [phone] Kehinde Greer MD Unavailable [phone] Encounter Details Date Type Department Care Team (Late st Contact Info) Description 01/19/2024 Lab Requisition [facility] [address] [place] [address] Mu Carrillo MD [address] [facility] [address] [place] [address] Encounter for general adult medical [...] and Family Not on file 01/15/2024 Attends [employer] Services Not on file 01/14 Active Member [...] any time in the past 12 m [facility], were you homeless or living [...] Result [facility] [address] [place] [address] documented in this encounter Visit Diagnoses Diagnosis Encounter for general adult medical examination without abnormal findings documented in this encounter Additional Health Concerns Assessment Noted Time A Body Mass Index follow-up plan has been documented for the patient 01/26/2024 5:13 PM EST documented as of this encounter Care Teams Efficiency Analyst Relationship Specialty Start Date End Date Mk Reagan MD [address] [place] [address] PCP - General Internal Medicine 01/15/24 Kehinde Greer MD [address] [facility] [address] [place] [address] Consulting Physician Radiation Oncology 02/01/24 documented as of this encounter
--- OUTSIDE RECORDS SUMMARY | 2024-10-14 23:02 | XMS_ITS | Encounter Summary ---
Author Organization Healthcare Address [address] [place] [address] Care Team Providers Care Advertising Associate Name Role Phone Mk Reagan MD Primary Care Provider [phone] Kehinde Greer MD Unavailable [phone] Encounter Details Date Type Department Care Team (Late st Contact Info) Description 01/18/2024 Lab Requisition [facility] [address] [place] [address] Mu Carrillo MD [address] [facility] [address] [place] [address] Encounter for general adult medical [...] and Family Not on file 01/15/2024 Attends [employer] Services Not on file 01/14 Active Member [...] in the past 12 m [facility], were you homeless or living in a halfway (including now)? No 01/15/2024 Utilities Answer Date [...] at day 1 01/19/2024 8:51 AM EST [facility] Swab (Nares and Tiffany Rectal) 01/18/2024 8:00 AM EST 01/18/2024 11:29 AM EST us Mu Carrillo MD LAB MICROBIOLOGY - GEN ERAL ORDERABLES Final Result [facility] [address] [place] [address] documented in this encounter Visit Diagnoses Diagnosis Encounter for general adult medical examination without abnormal findings documented in this encounter Additional Health Concerns Assessment Noted Time A Body Mass Index follow-up plan has been documented for the patient 01/26/2024 5:13 PM EST documented as of this encounter Care Teams Advertising Associate Relationship Specialty Start Date End Date Mk Reagan MD [address] [place] [id number] PCP - General Internal Medicine 01/15/24 Kehinde Greer MD [address] [facility] [address] [place] [address] Consulting Physician Radiation Oncology 02/01/24 documented as of this encounter
--- OUTSIDE RECORDS SUMMARY | 2024-10-14 23:02 | XMS_ITS | Clinical Summary ---
Author Organization [facility] Address [address] [place] [address] Care Team Providers Care Motor Polarizer Name Role Phone Mk Reagan MD Primary Care Provider [phone] Hossein Greer MD Unavailable [phone] Allergies Active Allergy Reactions Criticality Noted Date [...] any time in the past 12 m [facility], were you homeless or [...] C Screening 1955 [facility]-/Child/Adol SDOH Screenings 1955 [id number] Vaccine (#1) 1961 [facility]-DTaP,Tdap,and Td Vaccine s [...] this topic Medical Devices Implanted Type Area Pediatric Neuropsychologist Device Identifier Shelf Expiration Date Model / Serial / Lot Stent Stent Heart Description:Two heart stents in right side Stent Stent Neck Stent Bonastent Tracheal/Bronch ial [id number] - [id number] Implanted:Qty: 1 on 01/21/2024 by Cesar Irving MD at [facility] [employer]-[id number] 09/09/2026 [id number] / / [id number] Procedures Procedure Name Priority Date/Time Associated Diagnosis Comments HEMOGLOBIN A1C Routine 01/15/2024 1:06 AM EST from Last 3 Months or Most Recently Relevant to Health Maintenance Results * (ABNORMAL) Hemoglobin A1c (01/15/2024 1:06 AM EST) Hemoglobin A1c 5.9(H) <5.7 % 01/15/2024 2:59 AM EST [facility] Blood Arterial blood specimen / Unknown Venipuncture / Unknown 01/15/2024 1:06 AM EST 01/15/2024 1:12 AM EST Narrative [facility] - 01/15/2024 2:59 AM EST HA1C Interpretive Data: Diagnosis of Diabetes: Diabetic > or = 6.5% Pre-diabetic 5.7 to 6.4% Non-diabetic < or = 5.6% Glycemic Targets for Type I and Type II Diabetics: Non- Adults <7.0% Adults <6.0% Children and Adolescents <7.5% Source: [place] [employer]. Standards of medical care in diabetes,2017. Diabetes Care.2017:40 (suppl 1):S1-S135. HbA1c assay performed by an ion-exchange chromatography method that is certified traceable to the DCCT. Orlando Oseguera DO LAB BLOOD ORDERABLES Final Result Performing Organization Address City/State/[facility] de Phone Number [facility] [address] [place] [address] from Last 3 Months or Most Recently Relevant to Health Maintenance Insurance HOA Advance Directives * Full Code (Latest Code Status on File) Date Activated Date Inactivated Comments 01/18/2024 5:01 PM 01/26/2024 8:47 PM Question Answer Comments Patient has decision-making capacity? No Healthcare Surrogate: Adult child of the patient Care Teams Motor Polarizer Relationship Specialty Start Date End Date Mk Reagan MD [address] [place] [id number] PCP - General Internal Medicine 01/15/24 Hossein Greer MD [address] [facility] [address] [place] [id number] Consulting Physician Radiation Oncology 02/01/24
--- OUTSIDE RECORDS SUMMARY | 2024-10-14 23:02 | XMS_ITS ---
Author Organization [facility] Address [address] [place] [address] Care Team Providers Care Curbstone Setter Name Role Phone Mk Reagan MD Primary Care Provider [phone] Kehinde Greer MD Unavailable [phone] Active Problems Problem Noted Date Diagnosed Date [...]
--- NOTE | 2024-10-14 23:14 | PC.NURSE ---
Pt arrived to unit via stretcher @0928
[2024-10-14 23:45] LABS: Troponin I < 0.01 ng/ml (0.00-0.034)
[2024-10-15] VITALS (25 sets, daily range): BP systolic 79–113; BP diastolic 52–72; PULSE 71–95; RESP 13–26; TEMP 36.4–36.9; O2SAT 94–98; BMI 16.0
[2024-10-15] MEDS: IPRATROPIUM BROMIDE 0.5 MG/2.5ML SOLUTION IH ×3 (00:19→18:42)
[2024-10-15] MEDS: LEVALBUTEROL 1.25MG/3ML NEB 1.25 MG IH ×3 (00:19→18:42)
[2024-10-15] MEDS: 0.9 % SODIUM CHLORIDE 1000ML 1,000 ML 100 ML IV (00:30)
[2024-10-15] MEDS: HYDROMORPHONE 2MG/ML SYRINGE 1 MG IV ×3 (00:30→22:50)
--- NOTE | 2024-10-15 00:46 | PC.NURSE ---
Patient complains of pain, bp 88/57 m64. notified and new order to give 1/2 of the ordered dose. 0.5mg dilaudid given and verified with Lynda Ayers RN.
--- NOTE | 2024-10-15 02:11 | PC.NURSE ---
MD notified that patient continues to have low bp 81/51 m61 and patient is requesting more pain medications. MD said to give 10mg oxycodone (patients home dose).
[2024-10-15] MEDS: OXYCODONE 10MG EXTENDED RELEASE TAB.ER.12H 10 MG PO (02:17)
--- NOTE | 2024-10-15 03:06 | PC.NURSE ---
notified that cardizem is off r/t low bp, bp 79/55 m60. Sinus rhythm hr 80. No new orders at this time.
[2024-10-15 03:49] LABS: Troponin I < 0.01 ng/ml (0.00-0.034)
[2024-10-15] MEDS: BUDESONIDE 0.5MG/2ML NEB 0.5 MG IH (06:36)
[2024-10-15 07:46] LABS: Nucleated Red Blood Cells % 0 %
[2024-10-15 07:52] LABS: Chloride 94 mmol/L (98-107); Sodium 131 mmol/L (136-145)
[2024-10-15 07:53] LABS: Potassium 4.5 mmoL/L (3.5-5.1)
[2024-10-15 07:54] LABS: INR 1.06 (0.9-1.1); Prothrombin Time 11.7 seconds (10.1-12.5)
[2024-10-15 07:56] LABS: Anion Gap 11.5 mEq/L (5-15); Blood Urea Nitrogen 10 mg/dl (7-17); Calcium 8.5 mg/dl (8.4-10.2); Carbon Dioxide 30 mmol/L (22.0-30.0); Creatinine Clearance Estimated 32 mL/min (50-200); Creatinine,Serum 0.50 mg/dl (0.52-1.04); Estimated Glomerular Filt Rate 123 ml/min (>60); GFR (African American) 149 ML/MIN (>60); Glucose 352 mg/dl (74-100); Magnesium 1.9 mg/dl (1.6-2.3)
[2024-10-15 07:57] LABS: Hematocrit 27.2 % (37.0-47.0); Immature Granulocytes % 1.0 %; Mean Corpuscular HGB Conc 31.3 g/dL (31.8-35.4); Mean Corpuscular Hemoglobin 25.8 pg (27.0-31.2); Mean Corpuscular Volume 82.4 fl (81-99); Platelet Count 590 K/mm3 (142-424); Red Blood Count 3.30 M/mm3 (4.20-5.40); Red Cell Distribution Width-SD 47.6 fL; White Blood Count 13.9 K/mm3 (4.8-10.8)
[2024-10-15 08:01] LABS: Hemoglobin 8.5 g/dL (12.2-16.2)
--- NOTE | 2024-10-15 08:13 | PC.WOUNDNOTE ---
Photo taken by previous shift upon admission.
[2024-10-15 08:56] LABS: Total Cells Counted 100
[2024-10-15 08:57] LABS: Hypochromasia 1+; RBC Morphology Normal
--- NOTE | 2024-10-15 10:35 | HMH.PHAINT1 ---
Pharmacy Intervention Comments: MEDICATION RECONCILIATION COMPLETE USING EXTERNAL PHARMACY FILL HISTORY AND PATIENT INTERVIEW. PATIENT STATES SHE DOES NOT TAKE HER ELIQUIS AND ONLY TAKES HER AMIODARONE OCCASIONALLY, DOES NOT USE THE ANORO BUT DOES USE THE STIOLTO INHALER.
[2024-10-15] MEDS: POLYETHYLENE GLYCOL 3350 17 GM PACKET PO (11:07)
[2024-10-15] MEDS: DOXYCYCLINE HYCL 100 MG TABLET PO ×2 (11:08→20:41)
[2024-10-15] MEDS: LEVOTHYROXINE 100MCG (0.1MG) TAB 100 MCG PO (11:08)
[2024-10-15] MEDS: OXYCODONE 5MG IMMEDIATE RELEASE TABLET 10 MG PO ×3 (11:28→20:44)
--- NOTE | 2024-10-15 15:46 | HMH.PTWOUND ---
Rehab Inpt Wound Evaluation Rehab IP Wound Evaluation Start: 10/14/24 23:27 Freq: ONCE Status: Active Protocol: Document 10/15/24 15:44 GALINA (Rec: 10/15/24 15:46 PHORODRÍGUEZ [id number]) Rehab PT Wound Assessment Subjective Subjective 68-year-old female who presents to [facility] emergency department with concerns of shortness of air over the last couple days not improving with home care. Her medical history is significant for stage III high-grade poorly differentiated lung carcinoma. She also has end-stage COPD with ongoing tobacco dependence. She is currently immunocompromised with her Keytruda therapy. In the ED she was identified with atrial fibrillation with RVR and met sepsis criteria. She received IV calcium channel mohan therapy, IV antibiotics and her care was transitioned to hospital medicine for ICU care. Currently she reports no fever, no chills and that she is feeling better. She denies associated retrosternal chest pain, confusion or pain with inspiration. She reports that her dyspnea has improved. Pt presents with sacral wound upon adm. Wound Sacrum Wound Type Pressure Ulcer Is This a Chronic Yes Wound Wound Staging Stage II Query Text:Stage I - Unbroken, red skin, no blanching. Stage II - Skin broken, superficial skin loss involving epidermis alone or also dermis. Partial loss of skin layers. Stage III - Pressure area involves epidermis, dermis and subcutaneous tissue, full thickness skin loss. Stage IV - Pressure area involves epidermis, subcutaneous tissue, bone and other supportive tissue. Full thickness skin loss with extensive destruction of underlying tissue and structures. Wound Length (cm) 2.0 Wound Width (cm) 2.0 Wound Depth (cm) 0.1 Wound Bed Appearance Beefy Red Wound Margins Well Defined Description Surrounding Tissue Cane Beds Appearance Wound Drainage Serosanguineous Description Drainage Amount Small Primary Dressing Composite Dressing Change Tolerated Well Patient Tolerance Plan/Recommendation Comment No current need for debridement of necrotic tissue. Nsg staff is dressing wound appropriately. No need for continued PT wound care treatment at this time. Thank you for involving the wound care team in the care of this patient. Eval Complexity Eval Charge Codes 68921 - High Complexity PHYSICIAN CERTIFICATION: I certify the specified therapy services for Alba Kameron are required, authorized, and reviewed every 30 days.
--- NOTE | 2024-10-15 16:29 | P.PN_ITS ---
Subjective *Date: 10/15/24 *Time: 16:29 Interval history: Patient feeling okay today, A-fib resolved. Not interested in hospice, does not want to give up Keytruda for lung cancer treatment. Follow-up sputum, mild blood cultures. Exam Data for Last 24 hours Vital signs and Labs for Last 24 Hours: Temp Pulse Resp BP Pulse Ox O2 Del Method O2 Flow Rate 98.0 F 83 15 108/66 L 96 Nasal Cannula 4 10/15/24 16:00 10/15/24 16:00 10/15/24 16:00 10/15/24 16:00 10/15/24 16:00 10/15/24 16:00 10/15/24 16:00 Laboratory Results - last 24 hr 10/14/24 19:10: Sodium 132 L, Potassium 4.8, Chloride 88 L, Carbon Dioxide 29, Anion Gap 19.8 H, BUN 11, Creatinine 0.70, Estimated Creat Clear 32, Estimated GFR 83, Est GFR ( Amer) 101, Glucose 176 H, Calcium 9.4, Total Bilirubin 0.7, AST 27, ALT 14, Alkaline Phosphatase 135 H, Troponin I < 0.01, NT-Pro-B Natriuret Pep 1930 H, Total Protein 8.1, Albumin 3.9, Globulin 4.2 H, Albumin/Globulin Ratio 0.9 L 10/14/24 19:51: SARS-CoV-2 (PCR) Not detected, Influenza A Untype (PCR) Not detected, Influenza Type B (PCR) Not detected 10/14/24 19:56: WBC 20.1 H*, RBC 3.77 L, Hgb 9.9 L, Hct 30.8 L, MCV 81.7, MCH 26.3 L, MCHC 32.1, RDW 15.6, Plt Count 661 H, MPV 9.1, Neut % (Auto) 91.2 H, Lymph % (Auto) 1.6 L, [place] % (Auto) 6.0, Eos % (Auto) 0.0 L, Baso % (Auto) 0.2, Neut # (Auto) 18.3 H, Lymph # (Auto) 0.3 L, [place] # (Auto) 1.2 H, Eos # (Auto) 0.0, Baso # (Auto) 0.1, Total Counted 100, Neutrophils % (Manual) 90 H, Lymphocytes % (Manual) 5 L, Monocytes % (Manual) 5, Platelet Estimate Moderate increase, RBC Morphology Normal, VBG pH 7.43 H, VBG pCO2 48.4, VBG pO2 152.7 H, VBG HCO3 31.6 H, VBG Total CO2 33.1 H, VBG O2 Saturation 99.1 H, VBG Base Excess 7.4 H, VBG Lactic Acid 1.2 10/14/24 22:33: Troponin I < 0.01 10/15/24 02:56: Troponin I < 0.01 10/15/24 07:30: WBC 13.9 H D, RBC 3.30 L, Hgb 8.5 L D, Hct 27.2 L, MCV 82.4, MCH 25.8 L, MCHC 31.3 L, RDW 15.6, Plt Count 590 H, MPV 9.6, Neut % (Auto) 96.5 H, Lymph % (Auto) 1.7 L, [place] % (Auto) 0.7 L, Eos % (Auto) 0.0 L, Baso % (Auto) 0.1, Neut # (Auto) 13.4 H, Lymph # (Auto) 0.2 L, [place] # (Auto) 0.1, Eos # (Auto) 0.0, Baso # (Auto) 0.0, Total Counted 100, Neutrophils % (Manual) 98 H, Lymphocytes % (Manual) 1 L, Monocytes % (Manual) 1 L, Platelet Estimate Slight increase, RBC Morphology Normal, Hypochromasia 1+, PT 11.7, INR 1.06, Sodium 131 L, Potassium 4.5, Chloride 94 L, Carbon Dioxide 30, Anion Gap 11.5, BUN 10, Creatinine 0.50 L D, Estimated Creat Clear 32, Estimated GFR 123, Est GFR ( Amer) 149 D, Glucose 352 H D, Calcium 8.5, Magnesium 1.9 I & O for Last 24 hours: Intake & Output 10/12/24 10/13/24 10/14/24 10/15/24 23:59 23:59 23:59 23:59 Intake Total 5.167 / 125.167 604.999 / 604.999 Output Total 800 / 800 Balance 5.167 / 125.167 -195.001 / -195.001 Weight 36 kg 37 kg Constitutional Constitutional: no acute distress and cachectic *Routine HEENT Exam Head: Present normocephalic Eye: Present EOMI and PERRL ENT: Present mucous membranes moist *Routine Neck Exam Neck: Present supple; Absent lymphadenopathy *Routine Respiratory Exam Respiratory: Present wheezes; Absent CTA bilaterally *Routine Cardiovascular Exam Cardiovascular: Present RRR *Routine Abdominal Exam Abdominal: Present soft and normoactive bowel sounds; Absent tenderness *Routine Extremities Exam Extremities: Absent cyanosis, clubbing or edema *Routine Skin Exam Skin: Present warm; Absent rash *Routine Neurological Exam Neurological: Present alert and oriented X3 Assessment and Plan *Assessment and plan (1) Atrial fibrillation with rapid ventricular response: Status: Acute Category: Medical Code(s): I48.91 - Unspecified atrial fibrillation (2) CAD (coronary atherosclerotic disease): Status: Acute Qualifiers: Coronary Disease-Associated Artery/Lesion type: [place] artery [place] vs. transplanted heart: [place] heart Associated angina: without angina Qualified Code(s): I25.10 - Atherosclerotic heart disease of [place] coronary artery without angina pectoris Category: Medical Code(s): I25.10 - Atherosclerotic heart disease of [place] coronary artery without angina pectoris (3) Sepsis: Status: Acute Category: Medical Code(s): A41.9 - Sepsis, unspecified organism (4) Acute and chronic respiratory failure with hypoxia: Status: Acute Category: Medical Code(s): J96.21 - Acute and chronic respiratory failure with hypoxia (5) Obstructive pneumonia: Status: Acute Category: Medical Code(s): J18.9 - Pneumonia, unspecified organism (6) Pleural effusion on right: Status: Acute Category: Medical Code(s): J90 - Pleural effusion, not elsewhere classified (7) Pulmonary emphysema: Status: Acute Qualifiers: Emphysema type: centrilobular Qualified Code(s): J43.2 - Centrilobular emphysema Category: Medical Code(s): J43.9 - Emphysema, unspecified (8) Tobacco dependence: Status: Acute Category: Medical Code(s): F17.200 - Nicotine dependence, unspecified, uncomplicated (9) Iron deficiency anemia: Status: Acute Qualifiers: Iron deficiency anemia type: unspecified iron deficiency Qualified Cod e(s): D50.9 - Iron deficiency anemia, unspecified Category: Medical Code(s): D50.9 - Iron deficiency anemia, unspecified (10) Severe protein-calorie malnutrition: Status: Acute Category: Medical Code(s): E43 - Unspecified severe protein-calorie malnutrition (11) Wound of sacral region: Status: Acute Category: Medical Code(s): S31.000A - Unspecified open wound of lower back and pelvis without penetration into retroperitoneum, initial encounter (12) Hypothyroidism: Status: Acute Category: Medical Code(s): E03.9 - Hypothyroidism, unspecified (13) Chronic, continuous use of opioids: Status: Acute Category: Medical Code(s): F11.90 - Opioid use, unspecified, uncomplicated (14) Lung cancer: Status: Acute Category: Medical Code(s): C34.90 - Malignant neoplasm of unspecified part of unspecified bronchus or lung Plan This is a 68-year-old female with lung cancer currently on immunotherapy with stage IV COPD who presents to the ED with shortness of air. Her telemetry identified atrial fibrillation with RVR. She has identified the burden of her disease and a goals of care conversation occurred with her ED provider. I am accompanied by her nurse Chelsea in the ICU for a goals of care conversation. The patient is interested in hospice consultation. She is requesting a DNI CODE STATUS. Problems addressed as follows: Atrial fibrillation with RVR Coronary artery disease ? Converted to sinus rhythm on IV Dilt drip. Discontinued. ? Started metoprolol succinate 12.5 mg daily. Pressures soft, continue to monitor. Adverse effects with amiodarone previously. ? Continue Eliquis 5 mg twice daily. Sepsis, present on admission Tachycardia, tachypnea, leukocytosis, source identified on imaging IV fluid resuscitation with normal lactic acid Continue ceftriaxone, doxycycline 100 mg twice daily. ? Follow-up blood, sputum cultures. Acute on chronic respiratory failure with hypoxia Obstructive pneumonia Pleural effusion on right COPD exacerbation Tobacco dependence Pulse oximetry monitoring Oxygen therapy to maintain appropriate oxygen saturations Currently requiring 3-4 L via nasal cannula (home O2 requirement=2L) CTA chest: Right pleural effusion, opacities both lungs, bronchovascular nodularities Trending labs and inflammatory markers IV antibiotic therapy [place]/Ricco inhalation therapy ICS therapy P.o. prednisone therapy Tobacco cessation education Nicotine replacement therapy Iron deficiency anemia Trending CBC PPI therapy Iron replacement therapy with ascorbic acid Transfuse for hemoglobin <7 Hypothyroidism Levothyroxine replacement therapy Severe protein calorie malnutrition Weight loss over [address] Nutritional supplementation DTI sacrum Nutrition Offloading Wound care consult Lung cancer Immunocompromise state Chronic pain Chronically prescribed opioid therapy Naloxone therapy Poor prognosis identified Goals of care conversation Hospice consult. Patient not ready for hospice. Does not want to stop Keytruda treatment.
[2024-10-15] MEDS: METOPROLOL SUCCINATE XL 25MG TABLET 12.5 MG PO (16:58)
[2024-10-15] MEDS: MULTIVITAMIN TABLET 1 EACH PO (16:58)
--- NOTE | 2024-10-15 18:08 | PC.NURSE ---
Patient has done well this shift. Lung sounds remain diminished. Tolerating 4L nasal cannula well. She has a dry hacking cough. She refused most of her morning meds this AM and was requesting her stool softener this afternoon that she refused this AM. She is a standby assist to the BSC. Blood pressures have improved this afternoon from this AM. No BM this shift. Patient provided prune juice to help her have a BM. Call melgar within reach.
[2024-10-15] MEDS: PANTOPRAZOLE 40MG TABLET 40 MG PO (20:41)
[2024-10-16] VITALS (8 sets, daily range): BP systolic 101–156; BP diastolic 68–82; PULSE 82–109; RESP 14–22; TEMP 36.4–36.8; O2SAT 81–98; BMI 24.3
[2024-10-16] MEDS: HYDROMORPHONE 2MG/ML SYRINGE 1 MG IV ×4 (05:05→23:59)
[2024-10-16 07:32] LABS: Hematocrit 26.9 % (37.0-47.0); Hemoglobin 8.3 g/dL (12.2-16.2); Immature Granulocytes % 1.0 %; Mean Corpuscular HGB Conc 30.9 g/dL (31.8-35.4); Mean Corpuscular Hemoglobin 25.9 pg (27.0-31.2); Mean Corpuscular Volume 84.1 fl (81-99); Nucleated Red Blood Cells % 0 %; Platelet Count 617 K/mm3 (142-424); Red Blood Count 3.20 M/mm3 (4.20-5.40); Red Cell Distribution Width-SD 48.2 fL; White Blood Count 29.7 K/mm3 (4.8-10.8)
[2024-10-16 07:43] LABS: Albumin Level 3.3 g/dl (3.5-5.0); Chloride 95 mmol/L (98-107); Potassium 4.3 mmoL/L (3.5-5.1); Sodium 133 mmol/L (136-145)
[2024-10-16 07:46] LABS: Alanine Aminotransferase 14 U/L (12-78); Albumin/Globulin Ratio 1.0 (1.1-1.8); Alkaline Phosphatase 116 U/L (38-126); Anion Gap 10.3 mEq/L (5-15); Aspartate Amino Transferase 26 U/L (14-36); Bilirubin,Total 0.2 mg/dl (0.2-1.3); Blood Urea Nitrogen 9 mg/dl (7-17); Calcium 8.7 mg/dl (8.4-10.2); Carbon Dioxide 32 mmol/L (22.0-30.0); Creatinine Clearance Estimated 32 mL/min (50-200); Creatinine,Serum 0.50 mg/dl (0.52-1.04); Estimated Glomerular Filt Rate 123 ml/min (>60); GFR (African American) 149 ML/MIN (>60); Globulin 3.3 g/dL (1.3-3.2); Glucose 256 mg/dl (74-100); Total Protein,Serum 6.6 g/dl (6.3-8.2)
[2024-10-16 08:02] LABS: Hypochromasia 2+; Ovalocytes 1+; Total Cells Counted 100
[2024-10-16] MEDS: LEVOTHYROXINE 100MCG (0.1MG) TAB 100 MCG PO (08:40)
[2024-10-16] MEDS: DOXYCYCLINE HYCL 100 MG TABLET PO ×2 (08:41→20:17)
[2024-10-16] MEDS: OXYCODONE 5MG IMMEDIATE RELEASE TABLET 10 MG PO ×4 (08:45→20:17)
[2024-10-16] MEDS: METOPROLOL SUCCINATE XL 50MG TABLET 50 MG PO (08:45)
--- NOTE | 2024-10-16 09:15 | PC.NURSE ---
left ICU at 0914 to go to med surg floor with ICU staff
[2024-10-16] MEDS: CEFEPIME HCL 2 GM in 0.9 % SODIUM CHLORIDE 100 ML IV ×2 (09:32→20:17)
[2024-10-16 14:19] LABS: Microscopic, Urine URINE MICROSCOPIC (MICROSCOPIC)
[2024-10-16 14:21] LABS: Bilirubin,Urine Negative (Negative); Color,Urine YELLOW (Yellow); Glucose,Urine (UA) Negative (Negative); Ketones,Urine Negative (Negative); Leukocyte Esterase,Urine Negative (Negative); PH,Urine 6.5 (5.0-8.5); Protein,Urine Negative (Negative); Specific Gravity, Urine 1.020 (1.005-1.030); Urobilinogen,Urine 0.2 EU/dl (0.2)
[2024-10-16 14:28] LABS: Bacteria,Urine Trace /lpf; WBC,Urine Occasional #/hpf (0-3)
[2024-10-16] MEDS: MULTIVITAMIN TABLET 1 EACH PO (16:06)
--- NOTE | 2024-10-16 17:10 | PC.NURSE ---
pt transferred from ICU this shift. requiring 4LNC to maintain sats >90%. complained of generalized pain and back pain numerous times this shift. treated with PRN pain medication and scheduled oxycodone. pt brought home inhaler and it was placed in pt bin (pharmacy is gone for the night). pt ambulates with standby assistance to the bathroom. MRSA swab and urine sent this shift. no needs at this time. call light within reach.
[2024-10-16 17:16] LABS: Hematocrit 30.2 % (37.0-47.0); Immature Granulocytes % 1.2 %; Mean Corpuscular HGB Conc 31.1 g/dL (31.8-35.4); Mean Corpuscular Hemoglobin 26.2 pg (27.0-31.2); Mean Corpuscular Volume 84.1 fl (81-99); Nucleated Red Blood Cells % 0 %; Platelet Count 707 K/mm3 (142-424); Red Blood Count 3.59 M/mm3 (4.20-5.40); Red Cell Distribution Width-SD 47.8 fL
[2024-10-16 17:20] LABS: White Blood Count 32.1 K/mm3 (4.8-10.8)
[2024-10-16 17:24] LABS: Hemoglobin 9.4 g/dL (12.2-16.2)
[2024-10-16 17:41] LABS: RBC Morphology Normal; Total Cells Counted 100
[2024-10-16] MEDS: PANTOPRAZOLE 40MG TABLET 40 MG PO (20:17)
--- NOTE | 2024-10-16 21:42 | P.HP_ITS ---
History of Present Illness *Admission Date: 10/14/24 *History of present illness: This is a 68-year-old female who presents to [facility] emergency department with concerns of shortness of air over the last couple days not improving with home care. Her medical history is significant for stage III high-grade poorly differentiated lung carcinoma. She also has end-stage COPD with ongoing tobacco dependence. She is currently immunocompromised with her Keytruda therapy. In the ED she was identified with atrial fibrillation with RVR and met sepsis criteria. She received IV calcium channel mohan therapy, IV antibiotics and her care was transitioned to hospital medicine for ICU care. Currently she reports no fever, no chills and that she is feeling better. She denies associated retrosternal chest pain, confusion or pain with inspiration. She reports that her dyspnea has improved. [facility] Disclaimer: The information contained in this section may have been updated after the amber nt was seen, as this information can be updated by other users. Medical History Sepsis Tobacco dependence Chronic, continuous use of opioids Hypothyroidism Acute pulmonary embolism Bilateral pneumonia Dizziness [place] angina Headache Right middle lobe pneumonia Acute exacerbation of chronic obstructive pulmonary disease GI bleed Acute on chronic HFrEF (heart failure with reduced ejection fraction) Iron deficiency anemia Abnormal cardiovascular stress test Paroxysmal atrial fibrillation Lung collapse Angina pectoris Atrial fibrillation with RVR Primary lung cancer Acute hypoxemic respiratory failure Lung cancer Orthopnea Hemoptysis Smoking greater than 30 pack years Pulmonary emphysema History of lung cancer in adulthood Hilar lymphadenopathy Nodule of right lung Stenosis of carotid artery Cancer Migraine Heart attack NSCLC of left lung Anxiety Tooth abscess Surgical History History of bladder surgery History of heart artery stent History of hysterectomy Family History Other Cancer Heart attack Hypertension Stroke Social History (Updated 10/14/24 @ 23:51 by Chelsea Tong RN) Smoking Status: Current every day smoker tobacco type: cigarettes packs per day: 1 alcohol intake: never substance use type: denies use current occupational status: other Travel in the last 8 weeks?: None Have you lived/traveled outside [place] in past 30 days?: No Contact w/someone who lives/traveled outside [place] past 30 days?: No Exposure to someone with infectious disease in past 14 days?: No Do you have a fever (greater than 100.4 F or 38 C)?: No Have you tested positive for COVID-19?: No Exposed to someone with COVID-19 in past 14 days?: No Do you have a sore throat?: No Do you have a cough?: No Do you have any weakness?: No Do you have any diarrhea?: No Are you experiencing any unusual bleeding?: No Do you have any muscle aches/pain?: No Do you have any abdominal pain?: No Are you experiencing loss of taste or smell?: No Other Medical History Have you received the Flu Vaccine for this season: No Have you received the Pneumonia Vaccine: No Meds Home Medications and Allergies Home Medications ?Medication ?Instructions ?Recorded ?Confirmed ?Type pantoprazole 40 mg tablet,delayed 40 mg PO HS 30 days #30 tabs 08/11/24 10/15/24 Rx release amiodarone 200 mg tablet 200 mg PO DAILY 10/15/24 History levothyroxine 100 mcg tablet 100 mcg PO DAILYDM 10/15/24 History (Synthroid) oxycodone 10 mg tablet 10 mg PO Q8HP PRN Severe Aung n 10/15/24 10/15/24 History (Scale Score 7-10) polyethylene glycol 3350 17 17 g PO DAILYP PRN Constip ation 10/15/24 10/15/24 History gram/dose oral powder promethazine 12.5 mg tablet 12.5 mg PO Q4HP PRN Nausea And 10/15/24 10/15/24 History Vomiting sennosides 8.6 mg-docusate sodium 1 tab PO BIDP PRN Co nstipation 10/15/24 10/15/24 History 50 mg tablet (Stimulant Laxative Plus) tiotropium 2.5 mcg-olodaterol 2.5 2 puff inhalation DA ARIE 10/15/24 10/15/24 History mcg/actuation mist for inhalation (Stiolto Respimat) New Prescriptions to Start Prescriptions: Allergies Allergy/AdvReac Type Severity Reaction Status Date / Time diazepam AdvReac Severe Vomiting Verified 10/14/24 23:13 aspirin AdvReac Other Verified 08/15/25 23:13 Exam Data for Last 24 hours Vital signs and Labs for Last 24 Hours: Temp Pulse Resp BP Pulse Ox O2 Del Method O2 Flow Rate 97.5 F L 88 17 101/68 L 98 Nasal Cannula 4 10/16/24 20:00 10/16/24 20:00 10/16/24 20:00 10/16/24 20:00 10/16/24 20:00 10/16/24 20:00 10/16/24 20:00 Laboratory Results - last 24 hr 10/16/24 07:25: WBC 29.7 H* D, RBC 3.20 L, Hgb 8.3 L, Hct 26.9 L, MCV 84.1, MCH 25.9 L, MCHC 30.9 L, RDW 15.8, Plt Count 617 H, MPV 9.3, Neut % (Auto) 93.1 H, Lymph % (Auto) 1.2 L, [place] % (Auto) 4.6, Eos % (Auto) 0.0 L, Baso % (Auto) 0.1, Neut # (Auto) 27.7 H, Lymph # (Auto) 0.4 L, [place] # (Auto) 1.4 H, Eos # (Auto) 0.0, Baso # (Auto) 0.0, Total Counted 100, Neutrophils % (Manual) 95 H, Lymphocytes % (Manual) 1 L, Monocytes % (Manual) 4, Platelet Estimate Slight increase, Hypochromasia 2+, Ovalocytes 1+, Sodium 133 L, Potassium 4.3, Chloride 95 L, Carbon Dioxide 32 H, Anion Gap 10.3, BUN 9, Creatinine 0.50 L, Estimated Creat Clear 32, Estimated GFR 123, Est GFR ( Amer) 149, Glucose 256 H D, Calcium 8.7, Total Bilirubin 0.2, AST 26, ALT 14, Alkaline Phosphatase 116, Total Protein 6.6, Albumin 3.3 L, Globulin 3.3 H, Albumin/Globulin Ratio 1.0 L 10/16/24 14:15: Urine Color Yellow, Urine Appearance Clear, Urine pH 6.5, Ur Specific [place] 1.020, Urine Protein Negative, Urine Glucose (UA) Negative, Urine Ketones Negative, Urine Blood Negative, Urine Nitrate Negative, Urine Bilirubin Negative, Urine Urobilinogen 0.2, Ur Leukocyte Esterase Negative, Urine RBC None, Urine WBC Occasional, Ur Squamous Epith Cells 3-5, Urine Bacteria Trace 10/16/24 16:50: WBC 32.1 H*, RBC 3.59 L, Hgb 9.4 L D, Hct 30.2 L, MCV 84.1, MCH 26.2 L, MCHC 31.1 L, RDW 15.9, Plt Count 707 H, MPV 9.6, Neut % (Auto) 91.1 H, Lymph % (Auto) 2.5 L, [place] % (Auto) 5.0, Eos % (Auto) 0.0 L, Baso % (Auto) 0.2, Neut # (Auto) 29.2 H, Lymph # (Auto) 0.8, [place] # (Auto) 1.6 H, Eos # (Auto) 0.0, Baso # (Auto) 0.1, Total Counted 100, Neutrophils % (Manual) 89 H, Lymphocytes % (Manual) 2 L, Monocytes % (Manual) 8, Eosinophils % (Manual) 1, Platelet Estimate Marked increase, RBC Morphology Normal I & O for Last 24 hours: Intake & Output 10/13/24 10/14/24 10/15/24 10/16/24 23:59 23:59 23:59 23:59 Intake Total 5.167 / 125.167 814.999 / 1054.999 790 / 790 Output Total 1450 / 1450 800 / 800 Balance 5.167 / 125.167 -635.001 / -395.001 -10 / -10 Weight 36 kg 37 kg 37.3 kg Microbiology Reports for the Last 24 Hours: Microbiology 10/14/24 20:02 Blood Blood Culture - Preliminary NO GROWTH AFTER 48 HOURS 10/14/24 19:56 Blood Blood Culture - Preliminary NO GROWTH AFTER 48 HOURS 10/16/24 05:46 Sputum - Expectorated Sputum Gram Stain - Final
--- NOTE | 2024-10-16 21:42 | EXP.PN ---
Subjective *Date: 10/16/24 *Time: 21:42 Interval history: Patient doing well without acute concerns. Denies chest pain, shortness of breath, abdominal pain. Exam Data for Last 24 hours Vital signs and Labs for Last 24 Hours: Temp Pulse Resp BP Pulse Ox O2 Del Method O2 Flow Rate 97.5 F L 88 17 101/68 L 98 Nasal Cannula 4 10/16/24 20:00 10/16/24 20:00 10/16/24 20:00 10/16/24 20:00 10/16/24 20:00 10/16/24 20:00 10/16/24 20:00 Laboratory Results - last 24 hr 10/16/24 07:25: WBC 29.7 H* D, RBC 3.20 L, Hgb 8.3 L, Hct 26.9 L, MCV 84.1, MCH 25.9 L, MCHC 30.9 L, RDW 15.8, Plt Count 617 H, MPV 9.3, Neut % (Auto) 93.1 H, Lymph % (Auto) 1.2 L, [place] % (Auto) 4.6, Eos % (Auto) 0.0 L, Baso % (Auto) 0.1, Neut # (Auto) 27.7 H, Lymph # (Auto) 0.4 L, [place] # (Auto) 1.4 H, Eos # (Auto) 0.0, Baso # (Auto) 0.0, Total Counted 100, Neutrophils % (Manual) 95 H, Lymphocytes % (Manual) 1 L, Monocytes % (Manual) 4, Platelet Estimate Slight increase, Hypochromasia 2+, Ovalocytes 1+, Sodium 133 L, Potassium 4.3, Chloride 95 L, Carbon Dioxide 32 H, Anion Gap 10.3, BUN 9, Creatinine 0.50 L, Estimated Creat Clear 32, Estimated GFR 123, Est GFR ( Amer) 149, Glucose 256 H D, Calcium 8.7, Total Bilirubin 0.2, AST 26, ALT 14, Alkaline Phosphatase 116, Total Protein 6.6, Albumin 3.3 L, Globulin 3.3 H, Albumin/Globulin Ratio 1.0 L 10/16/24 14:15: Urine Color Yellow, Urine Appearance Clear, Urine pH 6.5, Ur Specific [place] 1.020, Urine Protein Negative, Urine Glucose (UA) Negative, Urine Ketones Negative, Urine Blood Negative, Urine Nitrate Negative, Urine Bilirubin Negative, Urine Urobilinogen 0.2, Ur Leukocyte Esterase Negative, Urine RBC None, Urine WBC Occasional, Ur Squamous Epith Cells 3-5, Urine Bacteria Trace 10/16/24 16:50: WBC 32.1 H*, RBC 3.59 L, Hgb 9.4 L D, Hct 30.2 L, MCV 84.1, MCH 26.2 L, MCHC 31.1 L, RDW 15.9, Plt Count 707 H, MPV 9.6, Neut % (Auto) 91.1 H, Lymph % (Auto) 2.5 L, [place] % (Auto) 5.0, Eos % (Auto) 0.0 L, Baso % (Auto) 0.2, Neut # (Auto) 29.2 H, Lymph # (Auto) 0.8, [place] # (Auto) 1.6 H, Eos # (Auto) 0.0, Baso # (Auto) 0.1, Total Counted 100, Neutrophils % (Manual) 89 H, Lymphocytes % (Manual) 2 L, Monocytes % (Manual) 8, Eosinophils % (Manual) 1, Platelet Estimate Marked increase, RBC Morphology Normal I & O for Last 24 hours: Intake & Output 10/13/24 10/14/24 10/15/24 10/16/24 23:59 23:59 23:59 23:59 Intake Total 5.167 / 125.167 814.999 / 1054.999 790 / 790 Output Total 1450 / 1450 800 / 800 Balance 5.167 / 125.167 -635.001 / -395.001 -10 / -10 Weight 36 kg 37 kg 37.3 kg Microbiology Reports for the Last 24 Hours: Microbiology 10/14/24 20:02 Blood Blood Culture - Preliminary NO GROWTH AFTER 48 HOURS 10/14/24 19:56 Blood Blood Culture - Preliminary NO GROWTH AFTER 48 HOURS 10/16/24 05:46 Sputum - Expectorated Sputum Gram Stain - Final Constitutional Constitutional: no acute distress and cachectic *Routine HEENT Exam Head: Present normocephalic Eye: Present EOMI and PERRL ENT: Present mucous membranes moist *Routine Neck Exam Neck: Present supple; Absent lymphadenopathy *Routine Respiratory Exam Respiratory: Present wheezes; Absent CTA bilaterally *Routine Cardiovascular Exam Cardiovascular: Present RRR *Routine Abdominal Exam Abdominal: Present soft and normoactive bowel sounds; Absent tenderness *Routine Extremities Exam Extremities: Absent cyanosis, clubbing or edema *Routine Skin Exam Skin: Present warm; Absent rash *Routine Neurological Exam Neurological: Present alert and oriented X3 Assessment and Plan *Assessment and plan (1) Atrial fibrillation with rapid ventricular response: Status: Acute Category: Medical Code(s): I48.91 - Unspecified atrial fibrillation (2) CAD (coronary atherosclerotic disease): Status: Acute Qualifiers: Coronary Disease-Associated Artery/Lesion type: [place] artery [place] vs. transplanted heart: [place] heart Associated angina: without angina Qualified Code(s): I25.10 - Atherosclerotic heart disease of [place] coronary artery without angina pectoris Category: Medical Code(s): I25.10 - Atherosclerotic heart disease of [place] coronary artery without angina pectoris (3) Sepsis: Status: Acute Category: Medical Code(s): A41.9 - Sepsis, unspecified organism (4) Acute and chronic respiratory failure with hypoxia: Status: Acute Category: Medical Code(s): J96.21 - Acute and chronic respiratory failure with hypoxia (5) Obstructive pneumonia: Status: Acute Category: Medical Code(s): J18.9 - Pneumonia, unspecified organism (6) Pleural effusion on right: Status: Acute Category: Medical Code(s): J90 - Pleural effusion, not elsewhere classified (7) Pulmonary emphysema: Status: Acute Qualifiers: Emphysema type: centrilobular Qualified Code(s): J43.2 - Centrilobular emphysema Category: Medical Code(s): J43.9 - Emphysema, unspecified (8) Tobacco dependence: Status: Acute Category: Medical Code(s): F17.200 - Nicotine dependence, unspecified, uncomplicated (9) Iron deficiency anemia: Status: Acute Qualifiers: Iron deficiency anemia type: unspecified iron deficiency Qualified Code(s): D50.9 - Iron deficiency anemia, unspecified Category: Medical Code(s): D50.9 - Iron deficiency anemia, unspecified (10) Severe protein-calorie malnutrition: Status: Acute Category: Medical Code(s): E43 - Unspecified severe protein-calorie malnutrition (11) Wound of sacral region: Status: Acute Category: Medical Code(s): S31.000A - Unspecified open wound of lower back and pelvis without penetration into retroperitoneum, initial encounter (12) Hypothyroidism: Status: Acute Category: Medical Code(s): E03.9 - Hypothyroidism, unspecified (13) Chronic, continuous use of opioids: Status: Acute Category: Medical Code(s): F11.90 - Opioid use, unspecified, uncomplicated (14) Lung cancer: Status: Acute Category: Medical Code(s): C34.90 - Malignant neoplasm of unspecified part of unspecified bronchus or lung Plan This is a 68-year-old female with lung cancer currently on immunotherapy with stage IV COPD who presents to the ED with shortness of air. Her telemetry identified atrial fibrillation with RVR. She has identified the burden of her disease and a goals of care conversation occurred with her ED provider. I am accompanied by her nurse Chelsea in the ICU for a goals of care conversation. The patient is interested in hospice consultation. She is requesting a DNI CODE STATUS. Problems addressed as follows: Atrial fibrillation with RVR Coronary artery disease ? Converted to sinus rhythm on IV Dilt drip. Discontinued. ? Started metoprolol succinate 12.5 mg daily. Pressures soft, continue to monitor. Adverse effects with amiodarone previously. ? Continue Eliquis 5 mg twice daily. Sepsis, present on admission Presented with tachycardia, tachypnea, leukocytosis, source identified on imaging ? WBC bumped to 29.7 today, however, patient feels well without respiratory distress and otherwise asymptomatic. On baseline 4 L. Will switch from ceftriaxone to cefepime 2 g every 12 hours, continue doxycycline 100 mg twice daily. ? Follow-up blood, sputum cultures. Acute on chronic respiratory failure with hypoxia Obstructive pneumonia Pleural effusion on right COPD exacerbation Tobacco dependence Pulse oximetry monitoring Oxygen therapy to maintain appropriate oxygen saturations Currently requiring 3-4 L via nasal cannula (home O2 requirement=2L) CTA chest: Right pleural effusion, opacities both lungs, bronchovascular nodularities Trending labs and inflammatory markers IV antibiotic therapy Danika/Ricco inhalation therapy Tobacco cessation education Nicotine replacement therapy Iron deficiency anemia Trending CBC PPI therapy Iron replacement therapy with ascorbic acid Transfuse for hemoglobin <7 Hypothyroidism Levothyroxine replacement therapy Severe protein calorie malnutrition Weight loss over [address] Nutritional supplementation DTI sacrum Nutrition Offloading Wound care consult Lung cancer Immunocompromise state Chronic pain Chronically prescribed opioid therapy Naloxone therapy Poor prognosis identified Goals of care conversation Hospice consulted and evaluated. Patient not ready for hospice. Does not want to stop Keytruda treatment.
[2024-10-17] VITALS (7 sets, daily range): BP systolic 91–122; BP diastolic 44–77; PULSE 78–100; RESP 17–20; TEMP 36.6–36.8; O2SAT 91–96; BMI 26.2
[2024-10-17] MEDS: LEVALBUTEROL 1.25MG/3ML NEB 1.25 MG IH ×3 (00:32→13:39)
[2024-10-17] MEDS: IPRATROPIUM BROMIDE 0.5 MG/2.5ML SOLUTION IH ×3 (00:32→13:39)
[2024-10-17] MEDS: HYDROMORPHONE 2MG/ML SYRINGE 1 MG IV (03:35)
--- NOTE | 2024-10-17 03:56 | PC.NURSE ---
Pt A&OX4 and has remained on 4L nasal cannula throughout the shift. She has complained of pain multiple times this shift and was medicated per MAR. Receiving IV ABX. She has ambulated with standby assist. No other complaints at this time, call lights within reach.
[2024-10-17] MEDS: LEVOTHYROXINE 100MCG (0.1MG) TAB 100 MCG PO (06:24)
[2024-10-17 06:41] LABS: Hematocrit 31.7 % (37.0-47.0); Hemoglobin 9.6 g/dL (12.2-16.2); Immature Granulocytes % 0.9 %; Mean Corpuscular HGB Conc 30.3 g/dL (31.8-35.4); Mean Corpuscular Hemoglobin 25.6 pg (27.0-31.2); Mean Corpuscular Volume 84.5 fl (81-99); Nucleated Red Blood Cells % 0 %; Platelet Count 625 K/mm3 (142-424); Red Blood Count 3.75 M/mm3 (4.20-5.40); Red Cell Distribution Width-SD 48.6 fL; White Blood Count 18.8 K/mm3 (4.8-10.8)
[2024-10-17 06:51] LABS: Albumin Level 3.2 g/dl (3.5-5.0); Chloride 90 mmol/L (98-107); Potassium 4.5 mmoL/L (3.5-5.1); Sodium 132 mmol/L (136-145)
[2024-10-17 06:54] LABS: Alanine Aminotransferase 12 U/L (12-78); Albumin/Globulin Ratio 0.9 (1.1-1.8); Alkaline Phosphatase 113 U/L (38-126); Anion Gap 10.5 mEq/L (5-15); Aspartate Amino Transferase 23 U/L (14-36); Bilirubin,Total 0.2 mg/dl (0.2-1.3); Blood Urea Nitrogen 9 mg/dl (7-17); Carbon Dioxide 36 mmol/L (22.0-30.0); Creatinine Clearance Estimated 35 mL/min (50-200); Creatinine,Serum 0.60 mg/dl (0.52-1.04); Estimated Glomerular Filt Rate 100 ml/min (>60); GFR (African American) 121 ML/MIN (>60); Globulin 3.4 g/dL (1.3-3.2); Total Protein,Serum 6.6 g/dl (6.3-8.2)
[2024-10-17 06:55] LABS: Calcium 9.0 mg/dl (8.4-10.2); Glucose 117 mg/dl (74-100)
--- NOTE | 2024-10-17 08:54 | P.DS_ITS ---
General Admission date:: 10/14/24 Hospital Course Hospital Course Hospital Course: This is a 68-year-old female with lung cancer currently on immunotherapy with stage IV COPD who presents to the ED with shortness of air. Her telemetry identified atrial fibrillation with RVR. She has identified the burden of her disease and a goals of care conversation occurred with her ED provider. I am accompanied by her nurse Chelsea in the ICU for a goals of care conversation. The patient is interested in hospice consultation. She is requesting a DNI CODE STATUS. Problems addressed as follows: Atrial fibrillation with RVR Coronary artery disease ? Converted to sinus rhythm on IV Dilt drip. Discontinued. ? Started metoprolol succinate 12.5 mg daily. Pressures soft, continue to monitor. Adverse effects with amiodarone previously. ? Continue Eliquis 5 mg twice daily. Sepsis, present on admission Presented with tachycardia, tachypnea, leukocytosis, source identified on imaging ? WBC bumped to 29.7 today, however, patient feels well without respiratory distress and otherwise asymptomatic. On baseline 4 L. Will switch from ceftriaxone to cefepime 2 g every 12 hours, continue do xycycline 100 mg twice daily. ? Follow-up blood, sputum cultures. Acute on chronic respiratory failure with hypoxia Obstructive pneumonia Pleural effusion on right COPD exacerbation Tobacco dependence Pulse oximetry monitoring Oxygen therapy to maintain appropriate oxygen saturations Currently requiring 3-4 L via nasal cannula (home O2 requirement=2L) CTA chest: Right pleural effusion, opacities both lungs, bronchovascular nodularities Trending labs and inflammatory markers IV antibiotic therapy Danika/Ricco inhalation therapy Tobacco cessation education Nicotine replacement therapy Iron deficiency anemia Trending CBC PPI therapy Iron replacement therapy with ascorbic acid Transfuse for hemoglobin <7 Hypothyroidism Levothyroxine replacement therapy Severe protein calorie malnutrition Weight loss over [address] Nutritional supplementation DTI sacrum Nutrition Offloading Wound care consult Lung cancer Immunocompromise state Chronic pain Chronically prescribed opioid therapy Naloxone therapy Poor prognosis identified Goals of care conversation Hospice consulted and evaluated. Patient not ready for hospice. Does not want to stop Keytruda treatment. Exam Data for Last 24 hours Vital signs and Labs for Last 24 Hours: Temp Pulse Resp BP Pulse Ox O2 Del Method O2 Flow Rate 97.9 F 100 H 20 91/44 L 92 L Nasal Cannula 4 10/17/24 08:00 10/17/24 08:00 10/17/24 08:00 10/17/24 08:00 10/17/24 08:00 10/17/24 08:00 10/17/24 08:00 Laboratory Results - last 24 hr 10/16/24 14:15: Urine Color Yellow, Urine Appearance Clear, Urine pH 6.5, Ur Specific [place] 1.020, Urine Protein Negative, Urine Glucose (UA) Negative, Urine Ketones Negative, Urine Blood Negative, Urine Nitrate Negative, Urine Bilirubin Negative, Urine Urobilinogen 0.2, Ur Leukocyte Esterase Negative, Urine RBC None, Urine WBC Occasional, Ur Squamous Epith Cells 3-5, Urine Bacteria Trace 10/16/24 16:50: WBC 32.1 H*, RBC 3.59 L, Hgb 9.4 L D, Hct 30.2 L, MCV 84.1, MCH 26.2 L, MCHC 31.1 L, RDW 15.9, Plt Count 707 H, MPV 9.6, Neut % (Auto) 91.1 H, Lymph % (Auto) 2.5 L, [place] % (Auto) 5.0, Eos % (Auto) 0.0 L, Baso % (Auto) 0.2, Neut # (Auto) 29.2 H, Lymph # (Auto) 0.8, [place] # (Auto) 1.6 H, Eos # (Auto) 0.0, Baso # (Auto) 0.1, Total Counted 100, Neutrophils % (Manual) 89 H, Lymphocytes % (Manual) 2 L, Monocytes % (Manual) 8, Eosinophils % (Manual) 1, Platelet Estimate Marked increase, RBC Morphology Normal 10/17/24 06:01: WBC 18.8 H D, RBC 3.75 L, Hgb 9.6 L, Hct 31.7 L, MCV 84.5, MCH 25.6 L, MCHC 30.3 L, RDW 15.9, Plt Count 625 H, MPV 9.8, Neut % (Auto) 86.5 H, Lymph % (Auto) 4.1 L, [place] % (Auto) 8.0, Eos % (Auto) 0.3, Baso % (Auto) 0.2, Neut # (Auto) 16.2 H, Lymph # (Auto) 0.8, [place] # (Auto) 1.5 H, Eos # (Auto) 0.1, Baso # (Auto) 0.0, Sodium 132 L, Potassium 4.5, Chloride 90 L, Carbon Dioxide 36 H, Anion Gap 10.5, BUN 9, Creatinine 0.60, Estimated Creat Clear 35, Estimated GFR 100, Est GFR ( Amer) 121, Glucose 117 H D, Calcium 9.0, Total Bilirubin 0.2, AST 23, ALT 12, Alkaline Phosphatase 113, Total Protein 6.6, Albumin 3.2 L, Globulin 3.4 H, Albumin/Globulin Ratio 0.9 L I & O for Last 24 hours: Intake & Output 10/14/24 10/15/24 10/16/24 10/17/24 23:59 23:59 23:59 23:59 Intake Total 5.167 / 125.167 814.999 / 1054.999 790 / 890 100 / 100 Output Total 1450 / 1450 800 / 800 700 / 700 Balance 5.167 / 125.167 -635.001 / -395.001 -10 / 90 -600 / -600 Weight 36 kg 37 kg 37.3 kg 40.279 kg Microbiology Reports for the Last 24 Hours: Microbiology 10/14/24 20:02 Blood Blood Culture - Preliminary NO GROWTH AFTER 48 HOURS 10/14/24 19:56 Blood Blood Culture - Preliminary NO GROWTH AFTER 48 HOURS 10/16/24 05:46 Sputum - Expectorated Sputum Gram Stain - Final Results Data Completed and Pending Labs on day of discharge: Labs from last 24 hours 10/17/24 10/16/24 10/16/24 06:01 16:50 14:15 WBC 18.8 H D 32.1 H* RBC 3.75 L 3.59 L Hgb 9.6 L 9.4 L D Hct 31.7 L 30.2 L MCV 84.5 84.1 MCH 25.6 L 26.2 L MCHC 30.3 L 31.1 L RDW 15.9 15.9 Plt Count 625 H 707 H MPV 9.8 9.6 Neut % (Auto) 86.5 H 91.1 H Lymph % (Auto) 4.1 L 2.5 L [place] % (Auto) 8.0 5.0 Eos % (Auto) 0.3 0.0 L Baso % (Auto) 0.2 0.2 Neut # (Auto) 16.2 H 29.2 H Lymph # (Auto) 0.8 0.8 [place] # (Auto) 1.5 H 1.6 H Eos # (Auto) 0.1 0.0 Baso # (Auto) 0.0 0.1 Total Counted 100 Neutrophils % (Manual) 89 H Lymphocytes % (Manual) 2 L Monocytes % (Manual) 8 Eosinophils % (Manual) 1 Platelet Estimate Marked increase RBC Morphology Normal Sodium 132 L Potassium 4.5 Chloride 90 L Carbon Dioxide 36 H Anion Gap 10.5 BUN 9 Creatinine 0.60 Estimated Creat Clear 35 Estimated GFR 100 Est GFR ( Amer) 121 Glucose 117 H D Calcium 9.0 Total Bilirubin 0.2 AST 23 ALT 12 Alkaline Phosphatase 113 Total Protein 6.6 Albumin 3.2 L Globulin 3.4 H Albumin/Globulin Ratio 0.9 L Urine Color Yellow Urine Appearance Clear Urine pH 6.5 Ur Specific [place] 1.020 Urine Protein Negative Urine Glucose (UA) Negative Urine Ketones Negative Urine Blood Negative Urine Nitrate Negative Urine Bilirubin Negative Urine Urobilinogen 0.2 Ur Leukocyte Esterase Negative Urine RBC None Urine WBC Occasional Ur Squamous Epith Cells 3-5 Urine Bacteria Trace Preliminary micro results at discharge 10/14/24 20:02 Blood Culture - Preliminary Blood NO GROWTH AFTER 48 HOURS 10/14/24 19:56 Blood Culture - Preliminary Blood NO GROWTH AFTER 48 HOURS DS: Diagnosis Discharge Diagnosis (1) Atrial fibrillation with rapid ventricular response: Status: Acute Code(s): I48.91 - Unspecified atrial fibrillation (2) CAD (coronary atherosclerotic disease): Status: Acute Code(s): I25.10 - Atherosclerotic heart disease of [place] coronary artery without angina pectoris Qualifiers: Associated angina: without angina Coronary Disease-Associated Artery/Lesion type: [place] artery [place] vs. transplanted heart: [place] heart Qualified Code(s): I25.10 - Atherosclerotic heart disease of [place] coronary artery without angina pectoris (3) Sepsis: Status: Acute Code(s): A41.9 - Sepsis, unspecified organism (4) Acute and chronic respiratory failure with hypoxia: Status: Acute Code(s): J96.21 - Acute and chronic respiratory failure with hypoxia (5) Obstructive pneumonia: Status: Acute Code(s): J18.9 - Pneumonia, unspecified organism (6) Pleural effusion on right: Status: Acute Code(s): J90 - Pleural effusion, not elsewhere classified (7) Pulmonary emphysema: Status: Acute Code(s): J43.9 - Emphysema, unspecified Qualifiers: Emphysema type: centrilobular Qualified Code(s): J43.2 - Centrilobular emphysema (8) Tobacco dependence: Status: Acute Code(s): F17.200 - Nicotine dependence, unspecified, uncomplicated (9) Iron deficiency anemia: Status: Acute Code(s): D50.9 - Iron deficiency anemia, unspecified Qualifiers: Iron deficiency anemia type: unspecified iron deficiency Qualified Code(s): D50.9 - Iron deficiency anemia, unspecified (10) Severe protein-calorie malnutrition: Status: Acute Code(s): E43 - Unspecified severe protein-calorie malnutrition (11) Wound of sacral region: Status: Acute Code(s): S31.000A - Unspecified open wound of lower back and pelvis without penetration into retroperitoneum, initial encounter (12) Hypothyroidism: Status: Acute Code(s): E03.9 - Hypothyroidism, unspecified (13) Chronic, continuous use of opioids: Status: Acute Code(s): F11.90 - Opioid use, unspecified, uncomplicated (14) Lung cancer: Status: Acute Code(s): C34.90 - Malignant neoplasm of unspecified part of unspecified bronchus or lung Meds Home Medications and Allergies Home Medications ?Medication ?Instructions ?Recorded ?Confirmed ?Type pantoprazole 40 mg tablet,delayed 40 mg PO HS 30 days #30 tabs 08/11/24 10/15/24 Rx release amiodarone 200 mg tablet 200 mg PO DAILY 10/15/24 History levothyroxine 100 mcg tablet 100 mcg PO DAILYDM 10/15/24 History (Synthroid) oxycodone 10 mg tablet 10 mg PO Q8HP PRN Severe Aung n 10/15/24 10/15/24 History (Scale Score 7-10) polyethylene glycol 3350 17 17 g PO DAILYP PRN Constip ation 10/15/24 10/15/24 History gram/dose oral powder promethazine 12.5 mg tablet 12.5 mg PO Q4HP PRN Nausea And 10/15/24 10/15/24 History Vomiting sennosides 8.6 mg-docusate sodium 1 tab PO BIDP PRN Co nstipation 10/15/24 10/15/24 History 50 mg tablet (Stimulant Laxative Plus) tiotropium 2.5 mcg-olodaterol 2.5 2 puff inhalation DA ARIE 10/15/24 10/15/24 History mcg/actuation mist for inhalation (Stiolto Respimat) apixaban 5 mg tablet (Eliquis) 5 mg PO BID 30 days #60 tabs 10/17/24 Rx levofloxacin 750 mg tablet 750 mg PO Q48H 5 days #3 ta bs 10/17/24 Rx metoprolol succinate 50 mg 50 mg PO DAILY 30 days #30 tabs 10/17/24 Rx tablet,extended release 24 hr (Toprol XL) New Prescriptions to Start Prescriptions: apixaban [Eliquis] Kam Drake levofloxacin Kam Drake metoprolol succinate [Toprol XL] Kam Drake Allergies Allergy/AdvReac Type Severity Reaction Status Date / Time diazepam AdvReac Severe Vomiting Verified 10/14/24 23:13 aspirin AdvReac Other Verified 10/14/24 23:13 Discharge Plan Disposition Patient Disposition: Home, Self-Care Condition: Fair Discharge Order Discharge Orders: Discharge Order (Routine); Ordered 10/17/24 Ordered By: Kam Drake Follow up Plan Follow up with: Leonel Gu MD [Staff Physician, Oncology] - 10/19/24 2:45 pm Jose Sellers MD [Physician, Pulmonology] - 11/15/24 11:00 am Mk Reagan MD [Primary Care Provider, Internal Medicine] - 10/21/24 10:00 am Prescriptions/Medication Reconciliation: New metoprolol succinate [Toprol XL] 50 mg Tablet Extended Release 24 Hr 50 mg PO DAILY 30 Days Qty: 30 0RF levofloxacin 750 mg tablet 750 mg PO Q48H 5 Days Qty: 3 0RF Eliquis 5 mg Tablet 5 mg PO BID 30 Days Qty: 60 0RF Continued levothyroxine [Synthroid] 100 mcg tablet 100 mcg PO DAILYDM oxycodone 10 mg tablet 10 mg PO Q8HP PRN (Reason: Severe Pain (Scale Score 7-10)) amiodarone 200 mg tablet 200 mg PO DAILY Patient Comments: TAKE 1 TABLET BY MOUTH ONCE DAILY promethazine 12.5 mg tablet 12.5 mg PO Q4HP PRN (Reason: Nausea And Vomiting) Patient Comments: TAKE 1 TABLET BY MOUTH EVERY 4 TO 6 HOURS NEEDED FOR NAUSEA AND VOMITING sennosides-docusate sodium [Stimulant Laxative Plus] 8.6-50 mg tablet 1 tab PO BIDP PRN (Reason: Constipation) Patient Comments: TAKE ONE TABLET BY MOUTH TWICE DAILY NEEDED FOR constipation polyethylene glycol 3350 17 gram/dose powder 17 g PO DAILYP PRN (Reason: Constipation) Patient Comments: DISSOLVE 17 GRAMS OF POWDER INTO 4 TO 8 OUNCES OF WATER, JUICE, SODA, COFFEE, OR TEA THEN DRINK EVERY DAY Stiolto Respimat 2.5-2.5 mcg/actuation mist 2 puff INHALATION DAILY Patient Comments: INHALE 2 PUFFS BY MOUTH ONCE DAILY pantoprazole 40 mg Tablet,Delayed Release (Dr/Ec) 40 mg PO HS 30 Days Qty: 30 0RF Problem Reconciliation Problems Reviewed?: Yes Patient Discharge Instructions Patient Instructions: DI for Pneumonia -- Adult, DI for Atrial Fibrillation, DI for Sepsis -- Adult, Stop Light Pneumonia, Stop Light COPD, Stop Light Infection Print Language: [place] Providers Primary Care Provider: Mk Reagan Admit Provider: Kam Drake Attending Provider: Kam Drake
[2024-10-17] MEDS: CEFEPIME HCL 2 GM in 0.9 % SODIUM CHLORIDE 100 ML IV (09:08)
[2024-10-17] MEDS: METOPROLOL SUCCINATE XL 50MG TABLET 50 MG PO (09:10)
[2024-10-17] MEDS: DOXYCYCLINE HYCL 100 MG TABLET PO (09:10)
[2024-10-17] MEDS: OXYCODONE 5MG IMMEDIATE RELEASE TABLET 10 MG PO ×3 (09:10→16:11)
[2024-10-17] MEDS: APIXABAN 5MG TABLET 5 MG PO (09:10)
[2024-10-17 13:04] LABS: MRSA DNA PCR Negative (Negative)
--- NOTE | 2024-10-19 10:27 | SW/DCPLANNER ---
Phoned patient x 2. Left message with name and call back number each time. Clara Santos
== END 2024-10-17 16:35 | disposition home or self-care (01) | DRG 871 ==
LOC: ER 21:08 → ICU 21:14 → 2ND 10-16 08:47
PROVIDERS: Family Medicine; Admitting Provider Student in an Organized Health Care Education/Training Program; Emergency Provider Student in an Organized Health Care Education/Training Program; PCP Internal Medicine Adolescent Medicine; Visit Provider Student in an Organized Health Care Education/Training Program
DX: A41.9 Sepsis, unspecified organism (principal); E43 Unspecified severe protein-calorie malnutrition; J18.8 Other pneumonia, unspecified organism; J96.21 Acute and chronic respiratory failure with hypoxia; C34.90 Malignant neoplasm of unspecified part of unspecified bronchus or lung; J44.1 Chronic obstructive pulmonary disease with (acute) exacerbation; J44.0 Chronic obstructive pulmonary disease with (acute) lower respiratory infection; J90 Pleural effusion, not elsewhere classified; D84.9 Immunodeficiency, unspecified; I48.91 Unspecified atrial fibrillation; I25.10 Atherosclerotic heart disease of native coronary artery without angina pectoris; F17.210 Nicotine dependence, cigarettes, uncomplicated; D50.9 Iron deficiency anemia, unspecified; E03.9 Hypothyroidism, unspecified; Z51.5 Encounter for palliative care; J43.2 Centrilobular emphysema; F11.90 Opioid use, unspecified, uncomplicated; S30.0XXA Contusion of lower back and pelvis, initial encounter; G89.29 Other chronic pain; Z79.890 Hormone replacement therapy; Z68.26 Body mass index [BMI] 26.0-26.9, adult; Z79.899 Other long term (current) drug therapy; Z88.8 Allergy status to other drugs, medicaments and biological substances; Z71.6 Tobacco abuse counseling
CPT/HCPCS: 36415; 71275; 80048; 80053; 81001; 82803; 83735; 83880; 84484; 85007; 85025; 85610; 87040; 87070; 87077; 87081; 87205; 87636; 87641; 89220; 93005; 94640; 97162; 97165; J0456; J0692; J0696; J1171; J2919; J3475; J7030; J7050; J7614; Q9967